=== PATIENT | male | born 1995 | race Caucasian/White ===

== ENCOUNTER 2018-10-06 02:29 | Emergency (ER) | payer MEDICAID ==
[~2018-10-06] VITALS: Ht 172.7 cm; Wt 63.2 kg
[~2018-10-06 02:29] MED LIST: ALBU18HF2 IH; CLOZ100T PO; FAMO40TA7 PO; MULT-38 PO; PALI156D IM; PARO20TA6 PO
--- NOTE | 2018-10-06 02:46 | NUR ---
He has a fever of unknown etioligy but no source identifiable. Gave him plenty of fluids to his bedside along with some applesauce.
[2018-10-06] MEDS ORDERED: ibuprofen tablet 400 MG TABLET PO STA (03:23)
--- NOTE | 2018-10-06 04:40 | NUR ---
pt refused to have labs drawn or throat cultured. made aware.
--- NOTE | 2018-10-06 05:31 | NUR ---
Awaiting [place] to provide transportation, they were notified and working on it.
--- NOTE | 2018-10-06 05:42 | NUR ---
spoke to the patients' conservator Nidhi and ANTONIA to her, she said to send him back called Traci at [facility] and ANTONIA to her
--- NOTE | 2018-10-06 06:21 | NUR ---
pt given a sandwich and apple juice as requested.
[2018-10-06 06:40] VITALS: BP 119/79
--- NOTE | 2018-10-06 06:41 | NUR ---
Lilian refused veinapuncture for labs or fluids. ER MD infromed awaiting transport.
== END 2018-10-06 07:10 | disposition home or self-care (01) ==
LOC: ER 02:30
DX: R50.9 Fever, unspecified (principal); J02.9 Acute pharyngitis, unspecified; F41.9 Anxiety disorder, unspecified; F15.90 Other stimulant use, unspecified, uncomplicated; Z72.89 Other problems related to lifestyle; Z59.0 Homelessness; Z56.0 Unemployment, unspecified
CPT/HCPCS: 71045; 87081; 87880; 99284

== ENCOUNTER 2019-02-03 10:15 | Inpatient (IN) | payer MEDICAID ==
[~2019-02-03] VITALS: Ht 170.2 cm; Wt 56.2 kg
[~2019-02-03 10:15] MED LIST changes: -ALBU18HF2 IH; +ATOR20TA PO; +BENZ1TAB7 PO; -CLOZ100T PO; -FAMO40TA7 PO; +HYDR50CA5 PO; -MULT-38 PO; +OLAN5TAB5 PO; -PALI156D IM; +PALI6TAB PO; -PARO20TA6 PO
--- NOTE | 2019-02-03 14:00 | NUR ---
Admit Note: Patient discharged from the ER Overflow, Bed 26 and admitted to [place] for [facility], Room 327 A, with all his personal possessions. Possessions inventoried in front of patient and patient signed form in agreement. Due to patient's preoccupation with internal stimuli, patient was unable to cooperate with the admission process. Asked for and given Ativan 1 mg for anxiety and went immediately to bed.
[2019-02-03] MEDS ORDERED: loperamide 2mg capsule PO PRN (14:20)
[2019-02-03] MEDS ORDERED: acetaminophen 325mg tablet PO PRN ×2 (14:20)
[2019-02-03] MEDS ORDERED: tuberculin, purif. prot. deriv. 5 units/0.1ml ID ONE (14:20)
[2019-02-03] MEDS ORDERED: magnesium hydroxide 30ml (MOM) UD suspension PO PRN (14:20)
[2019-02-03] MEDS ORDERED: hydrOXYzine 25 MG tablet PO PRN (14:20)
[2019-02-03] MEDS ORDERED: mag hydrox/Alum hydrox/simeth 30ml oral suspension PO PRN (14:20)
[2019-02-03 20:00] VITALS: BP 111/84
[2019-02-03] MEDS: LORazepam 1 MG tablet PO PRN (21:34)
--- NOTE | 2019-02-03 23:15 | NUR ---
It was discovered at this time that the patients med rec was not completed. Meds ordered in ER to be continued, pt already in bed so will start in the am.
--- NOTE | 2019-02-03 23:30 | NUR ---
Nursing Progress Note: Legal hold:5150 Client on involuntary status for GD. Report received from ELOY Torres with use of SBAR. Why are they here: Patient is a 23 year old male brought in by his brother, also conservator, for a mental health evaluation after the patient stopped taking his psychiatric medication, stopped his ADLS and has not been eating. Per patient's brother the patient was recently discharged from a mental health facility on 12/26 and was initially doing well. However, the patient stopped taking his medication and has steadily declined. Assessment What has happened this shift: Pt up and pacing the bernard stopping and staring at the clock for long periods of time. Pt was having increased anxiety staring wide eyed at the clock.Prn Ativan given with some help noted. Pt was fixating on charge nurse asking her for numerous things. Pt seems more comfortable with female staff. Pt is waiting for placement in IMD. S/I, H/I:denies A/VH: yes Sleep:poor ADL's: Ind. Group attendance: Were meds taken:None at this time Any med S/E Mental Status Exam Appearance: Eye contact: poor Behavior: Speech: pressured Mood: Affect: blunted Thought process: scattered Thought Content: Cognition: Insight:poor Judgment: poor Interventions PRN's used: Ativan Therapeutic interventions: Restraints/seclusion/emergency medication: Justification of Continued Inpatient Treatment: Pt is GD unable to utilize the resources available to him.
[2019-02-04 07:30] VITALS: BP 112/72
[2019-02-04] MEDS: hydrOXYzine 25 MG tablet PO SCH ×2 (08:31→20:44)
[2019-02-04] MEDS: benztropine 1mg tablet PO SCH ×2 (08:32→20:46)
[2019-02-04] MEDS: PALIPERIDONE 3 MG TAB.ER.24 PO SCH ×2 (08:32→20:45)
[2019-02-04] MEDS: OLANZapine 5mg rapidly disint. tablet PO SCH ×2 (08:32→20:45)
--- NOTE | 2019-02-04 14:26 | NUR ---
Malnutrition consult, patient presents to behavioral health for treatment of psychosis. Per documented weight history there is no recent significant weight loss in the past nine months. Appetite is moderate, eating 0-25% of first two meals and ate 75% of lunch today. No edema. No muscle weakness. No malnutrition at this time. Addendum: 02/04/19 at [address] Amended: Links added.
--- NOTE | 2019-02-04 17:05 | NUR ---
PATIENT IS NOT CONSERVED AND IS NOT AWAITING PLACEMENT IN AN IMD AT THIS TIME. WE ARE RECOMMENDING CONSERVATORSHIP.
--- NOTE | 2019-02-04 17:13 | NUR ---
LPS RECOMMENDATION: JESSICA provided Dr. Muller w/ [facility] recommendation paperwork. Dr. Muller completed. JESSICA faxed and emailed recommendation to [facility] Office. Ruth Stockton, Counter Roller WAITER/WAITRESS TAKE OUT [id number] Supervised by Delonte Cabrera, [id number]
--- NOTE | 2019-02-04 17:40 | NUR ---
Nursing Progress Note: Legal hold:5150 Client on involuntary status for GD. Report received from ELOY Alexis with use of SBAR. Why are they here: Patient is a 23 year old male brought in by his brother, also chair pad maker, for a mental health evaluation after the patient stopped taking his psychiatric medication, stopped his ADLS and has not been eating. Per patient's brother the patient was recently discharged from a mental health facility on 12/26 and was initially doing well. However, the patient stopped taking his medication and has steadily declined. Assessment What has happened this shift: Pt up and pacing the bernard. Pt seems more comfortable with female staff. Pt is waiting for placement in IMD. He is disheveled this morning. Initally he is willing to engage in assessment but after mutliple questions he quickly becomes guarded and asks, "Can you just get out of here?" When asked why he was admitted he reports his brother brought him here because he was concerned, "But I am fine." He has denial of his illness and denies wanting to take his medications today. He reports wanting to leave this facility. Pt is found in the hallway multiple times a day blankly staring at the clock. This video games storywriter took the time to provide education on why he is here and prompted him to take his medications. He did so with prompting. He reports having a BM yesterday. No SE's reported or observed. S/I, H/I: denies A/VH: denies but acknowledges internal stimuli Sleep: 4.5 NOC, wants to nap today ADL's: Independent Group attendance: Were meds taken: reluctantly compliant Any med S/E: Denies, none observed Mental Status Exam Appearance: slightly disheveled Eye contact: Poor Behavior: guarded, isolative Speech: pressured Mood: guarded Affect: blunted, flat Thought process: mostly linear Thought Content: focused on leaving & denial of illness Cognition: A & O X3 Insight:poor Judgment: poor Interventions PRN's used: n/a Therapeutic interventions: Restraints/seclusion/emergency medication: None Justification of Continued Inpatient Treatment: Pt is GD unable to utilize the resources available to him.
[2019-02-04 20:00] VITALS: BP 95/65
[2019-02-04] MEDS: atorvastatin 20mg tablet PO SCH (20:45)
--- NOTE | 2019-02-05 01:40 | NUR ---
Nursing Progress Note: Legal hold:5150 Client on involuntary status for GD. Report received from ELOY Grigsby with use of SBAR. Why are they here: Patient is a 23 year old male brought in by his brother, also self contained behavior unit teacher, for a mental health evaluation after the patient stopped taking his psychiatric medication, stopped his ADLS and has not been eating. Per patient's brother the patient was recently discharged from a mental health facility on 12/26 and was initially doing well. However, the patient stopped taking his medication and has steadily declined. Assessment What has happened this shift: Pt isolates to his room the majority of the shift. He is observed pacing around the beds, systematically stopping and squatting in the same spot, lifting up his cup of water multiple times before taking a sip, and folding and unfolding his bedsheets. When asked how his day was he does not look at racebook writer or respond. [employer] then asks where pt is from he replies, [place] [employer] asks what kind sof things he likes to do for for fun, he replies, "have sex." Pt encouraged to eat and drink. He verbally refuses food, but when applesauce and a peanut butter and jelly sandwich is placed on his table he eats it. He verbally refuses his HS medications, but when racebook writer hands him the cup he takes them without issue. PT paces around his room in the dark, or stares out the window. Staff encourages pt to get into bed and educates him on the importance of sleep. PT verbalizes understanding, but every time staff leaves his room he gets up out of bed and paces in the dark or hides in the bathroom. 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 Were meds taken: HS med compliant but refuses PRN ativan Any med S/E: Denies, none observed Mental Status Exam Appearance: slightly disheveled Eye contact: Poor Behavior: guarded, isolative Speech: pressured, sparse Mood: guarded, suspicious Affect: flat, bizarre Thought process: thought blocking Thought Content: wanting staff to get out of his room Cognition: poor Insight:poor Judgment: poor Interventions PRN's used: PRN Ativan encouraged, but pt refused Therapeutic interventions: 1:1 assessment, therapeutic communication, reassurance, redirection, enforcing reality, medication education, sleep education, Q15 minute safety checks. Restraints/seclusion/emergency medication: None Justification of Continued Inpatient Treatment: Pt is GD unable to utilize the resources available to him. He is unable to provide himself with snf, clothing, or food.
[2019-02-05 07:23] VITALS: BP 98/60
[2019-02-05] MEDS: clozapine 25mg tablet PO SCH ×2 (08:22→20:41)
[2019-02-05] MEDS: benztropine 1mg tablet PO SCH ×2 (08:23→20:42)
[2019-02-05] MEDS: hydrOXYzine 25 MG tablet PO SCH ×2 (08:25→20:41)
--- NOTE | 2019-02-05 15:37 | NUR ---
Nursing Progress Note: Jozef Lancaster Legal hold:5150 Client on involuntary status for GD. Report received from ELOY Alexis with use of SBAR. Why are they here: Patient is a 23 year old male brought in by his brother, also counter attendant, for a mental health evaluation after the patient stopped taking his psychiatric medication, stopped his ADLS and has not been eating. Per patient's brother the patient was recently discharged from a mental health facility on 12/26 and was initially doing well. However, the patient stopped taking his medication and has steadily declined. Assessment What has happened this shift: Pt in room sitting in chair at change of shift. When asked by this marketing underwriter if I could enter room he responds "yes". When asked if I could listen to his lungs, he initial responds, yes then quickly no. Does not make eye contact. Initially refused breakfast due to food not being individually wrapped. Provided with cereal and milk which he consumed approximately 80% of. Approached this marketing underwriter demonstrating body language that he needed to request something. When this marketing underwriter responded, pt. Looked down and walked away. He approached very soon afterward with same behavior. When asked if he needed anything he started to ask, then replied no. Eventually, he asked for a pen, which was not provided as he had already received one without returning it. [facility] psychiatrist and SW on unit to evaluate patient for LPS conservatorship. The decision was made to move forward with the conservatorship. When presented with the decision, patient responded "no, no". He started to take a sip of water than placed the pitcher on the table, he started to walk around the bedside table and then retracted his steps multiple times. Appears to be unable to communicate his thoughts appropriately, or is thought blocking. Isolates in room, observed reading a book. Does not engage others on the unit. Takes medications with encouragement. Offered applesauce, which he accepted before lunch. Ate 100% of lunch. Able to request paper for a bookmark this afternoon. Monitoring water intake, labs ordered for AM. Approached this marketing underwriter asking for a piece of paper, when handed paper, he wanted to cut it for a bookmark. This marketing underwriter cut the paper and handed him an appropriate sized piece for the bookmark. S/I, H/I: denies A/VH: denies Sleep: 1.75 Did not nap during shift ADL's: Independent Group attendance: no Were meds taken: yes Any med S/E: Denies, none observed Mental Status Exam Appearance: slightly disheveled Eye contact: Poor Behavior: guarded, isolative Speech: pressured, sparse Mood: guarded, suspicious Affect: flat, bizarre Thought process: thought blocking Thought Content: Difficult to determine, focused on wanting water Cognition: poor Insight:poor Judgment: poor Interventions PRN's used: PRN Ativan encouraged, but pt refused Therapeutic interventions: 1:1 assessment, therapeutic communication, reassurance, redirection, enforcing reality, medication education, sleep education, Q15 minute safety checks. Restraints/seclusion/emergency medication: None Justification of Continued Inpatient Treatment: Pt is GD unable to utilize the resources available to him. He is unable to provide himself with group home, clothing, or food.
--- NOTE | 2019-02-05 20:06 | NUR ---
Pt refused physical assessment. Addendum: 02/05/19 at 2010 by Deepa Basurto RN Amended: Links added.
--- NOTE | 2019-02-05 20:08 | NUR ---
Pt refused nighttime vitals Addendum: 02/05/19 at 2010 by Deepa Basurto RN Amended: Links added.
[2019-02-05] MEDS: OLANZapine 5mg rapidly disint. tablet PO SCH (20:42)
[2019-02-05] MEDS: atorvastatin 20mg tablet PO SCH (20:42)
--- NOTE | 2019-02-05 22:12 | NUR ---
Pt refused vital signs Addendum: 02/05/19 at 2214 by Deepa Basurto RN Amended: Links added.
--- NOTE | 2019-02-05 23:34 | NUR ---
Nursing Progress Note: Legal hold: 5150 Exp 02/06 @ 1400 Client on involuntary status for GD. Report received from ELOY Wright with use of SBAR. Why are they here: Patient is a 23 year old male brought in by his brother/mass spec, for a mental health evaluation after the patient stopped taking his psychiatric medication, stopped his ADL'S and has not been eating. Per patient's brother the patient was recently discharged from a mental health facility on 12/26 and was initially doing well. However, the patient stopped taking his medication and has steadily declined. Assessment What has happened this shift: Pt was in hallway pacing at shift change. Pt made eye contact with this verse writer when introduced self. When asked how he was doing patient immediately looked away and walked off. Pt later was observed sitting in dark room reading a book. Pt was reluctant with medication administration, but did take his meds. Pt refused 1:1 assessment. When asked if he knew where he was pt stated "[facility]", when asked why he was here pt stated "pushing each other", pt first stated family then said brother. When asked if brother and him push each other alot, pt states "no". Is home a safe place, "yes". Do you take psyche meds? "No." Pt's answers became just yes or no. Pt makes no eye contact during interaction. Pt repeats movements, when replacing ID bracelet, pt handed arm to this verse writer then took it back several time. Pt walks in a 2-step manner when walking across his room. Pt denies SI, HI, A/VH. Sometimes it appears pt wants to speak, but eithe looks or walks away. S/I, H/I: Pt denies. Difficult to assess. A/VH: Pt denies. Difficult to assess. Sleep: Currently sleeping. 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 Were meds taken: Medication compliant Any med S/E: None reported or observed Mental Status Exam Appearance: Slightly disheveled Eye contact: Poor Behavior: Guarded, isolative Speech: Pressured, minimal Mood: Guarded, suspicious Affect: Blunted, bizarre Thought process: Thought blocking Thought Content: Unable to assess Cognition: Poor Insight: Poor Judgment: poor Interventions PRN's used: None Therapeutic interventions: 1:1 assessment, therapeutic communication, reassurance, redirection, enforcing reality, medication administration/education/monitoring, orient patient to person, place and time, sleep education, Q15 minute safety checks. Restraints/seclusion/emergency medication: None Justification of Continued Inpatient Treatment: Pt is GD unable to utilize the resources available to him. He is unable to provide himself with penitentiary, clothing, or food. Addendum: 02/06/19 at 0431 by Deepa Basurto RN Pt woke up around 0400, sitting in chair in the dark.
[2019-02-06] MEDS: hydrOXYzine 25 MG tablet PO SCH ×2 (08:00→21:16)
[2019-02-06] MEDS: clozapine 25mg tablet PO SCH ×2 (08:00→21:14)
[2019-02-06] MEDS: benztropine 1mg tablet PO SCH ×2 (08:00→21:16)
--- NOTE | 2019-02-06 17:30 | NUR ---
Nursing Progress Note: Legal hold: 5150 Exp 02/06 @ 1400 Client on involuntary status for GD. Report received from ELOY Alexis with use of SBAR. Why are they here: Patient is a 23 year old male brought in by his brother/nutrition teacher, for a mental health evaluation after the patient stopped taking his psychiatric medication, stopped his ADL'S and has not been eating. Per patient's brother the patient was recently discharged from a mental health facility on 12/26 and was initially doing well. However, the patient stopped taking his medication and has steadily declined. Assessment Pt. awake at start of shift. Pt. refused labs. Pt. refused breakfast, refused medications, refused physical assessment. When approached, pt. looks away. Pt. ate peanut butter and jelly sandwich mid morning. Pt. ate epna burrito for lunch. Pt. encouraged food intake. Pt. presents with OCD like behaviors, picking up his cup, bringing it to his lips, hesitating, then putting it down, pt. repeats this multiple times. Pt. requests water, but has a pitcher half-full of water. Pt. approaches nurses station as if to request something, hesitates, but then backs away and repeats this process. S/I, H/I: Pt denies. Unable to assess A/VH: Pt denies. Unable to assess Sleep: Pt. slept 6.75 hours ADL's: Independent Group attendance: No Were meds taken: Medication compliant Any med S/E: None reported or observed Mental Status Exam Appearance: Slightly disheveled Eye contact: Poor Behavior: Guarded, isolative Speech: minimal responses, sometimes, "yes/no" Mood: Guarded, suspicious Affect: Blunted, bizarre Thought process: Thought blocking Thought Content: Unable to assess Cognition: Poor Insight: Poor Judgment: poor Interventions PRN's used: None Therapeutic interventions: 1:1 assessment, therapeutic communication, reassurance, redirection, enforcing reality, medication administration/education/monitoring, orient patient to person, place and time, sleep education, Q15 minute safety checks. Restraints/seclusion/emergency medication: None Justification of Continued Inpatient Treatment: Pt is GD unable to utilize the resources available to him. He is unable to provide himself with prison, clothing, or food.
[2019-02-06] MEDS: atorvastatin 20mg tablet PO SCH (21:15)
[2019-02-06] MEDS: OLANZapine 5mg rapidly disint. tablet PO SCH (21:15)
--- NOTE | 2019-02-06 22:45 | NUR ---
Pt refused assessment Addendum: 02/06/19 at 2247 by Deepa Basurto RN Amended: Links added.
--- NOTE | 2019-02-06 22:58 | NUR ---
Pt refused blood pressure Addendum: 02/06/19 at 2259 by Deepa Basurto RN Amended: Links added.
[2019-02-06] MEDS: LORazepam 1 MG tablet PO PRN (23:46)
--- NOTE | 2019-02-07 03:51 | NUR ---
Nursing Progress Note: Legal hold: 5250 Exp 02/20 @ 1400 Client on involuntary status for GD. Report received from ELOY Quigley with use of SBAR. Why are they here: Patient is a 23 year old male brought in by his brother/chair inspector, for a mental health evaluation after the patient stopped taking his psychiatric medication, stopped his ADL'S and has not been eating. Per patient's brother the patient was recently discharged from a mental health facility on 12/26 and was initially doing well. However, the patient stopped taking his medication and has steadily declined. Assessment What has happened this shift: Pt was sitting in room with his table in front of him making repeated movements with his hands, lifting them up, holding them in place then bringing them down again. Pt had refused meals during the day, so this gag writer was trying to encourage other foods. Pt. agreed on string cheese. Throughout the shift patient consumed 2 string cheese, 1 burrito and 1 blueberry muffin. Pt refused assessment, blood pressure and at first said no to his medications, but when placed in front of him pt took them. Pt's darting eyes, sometime he would make contact then quickly look away. When asked if pt wanted to be here he quickly stated "no." Pt wouldn't answer any questions. Pt was medication compliant. Pt appears to try and pocket his medications. This gag writer checked pt's mouth and stayed in room after administration to monitor. Pt later came into the observation room with his water pitcher requesting more water. Pt had a trouble falling asleep- Ativan was administered. Was unable to get a hold of provider for a sleep aid, but pt finally climbed into bed around 0200. S/I, H/I: Pt didn't answer. Difficult to assess. A/VH: Pt didn't answer. Difficult to assess. Sleep: Currently sleeping. Pt had trouble falling asleep. 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 Were meds taken: Medication compliant Any med S/E: None reported or observed Mental Status Exam Appearance: Slightly disheveled Eye contact: Poor Behavior: Guarded, isolative, repetitive Speech: Minimal, sometimes yes, sometimes no Mood: Guarded, suspicious Affect: Blunted, bizarre Thought process: Thought blocking Thought Content: Unable to assess Cognition: Poor Insight: Poor Judgment: Poor Interventions PRN's used: Ativan Therapeutic interventions: 1:1 assessment, therapeutic communication, reassurance, redirection, enforcing reality, medication administration/education/monitoring, orient patient to person, place and time, sleep education, Q15 minute safety checks. Restraints/seclusion/emergency medication: None Justification of Continued Inpatient Treatment: Pt is GD unable to utilize the resources available to him. He is unable to provide himself with [facility], clothing, or food. Addendum: 02/07/19 at 3732 by Deepa Basurto RN Pt still restless unable to sleep. Attempted to administration Atarax, pt refused, tried talking to him pt states "why are you being rude, I don't have to take that." Pt requested more water. During this time pt made direct eye contact. Addendum: 02/07/19 at 5344 by Deepa Basurto RN Observation: Pt talks in complete sentences when he wants or needs something and especially if he doesn't want to take his medications. Usually he just responds with yes or no.
[2019-02-07] MEDS ORDERED: traZODone 50mg tablet PO PRN (05:10)
--- NOTE | 2019-02-07 07:53 | NUR ---
PATIENT REFUSED VITALS
[2019-02-07] MEDS: benztropine 1mg tablet PO SCH ×2 (09:31→21:10)
[2019-02-07] MEDS: clozapine 25mg tablet PO SCH ×2 (09:31→21:10)
[2019-02-07] MEDS: hydrOXYzine 25 MG tablet PO SCH ×2 (09:32→21:10)
--- NOTE | 2019-02-07 15:03 | NUR ---
Initial: Pt admit to [facility] with psychosis. Pt on a regular diet previously with 50-75% PO intake however now documented to have refused all meals 02/06-until present. Per RN notes pt consuming snacks such as string cheese, applesauce, peanut butter and jelly sandwiches, cereal, pena burrito, and muffin. RNs are continually encouraging PO intake. Per physical assessment pt is A/O x 1, agitated, and resistive to care. Pt documented to be refusing lab draws, assessments, vitals, and meals. Current mentation likely the cause of poor PO intake. LBM documented as 02/03 however unsure if this is actually when last BM was since pt refusing assessments. MoM PRN on med list for if pt with constipation. Will continue to follow closely. Recommendations: 1) Continue with regular diet 2) Encourage PO intake 3) [place] food preferences 4) Weekly wt Addendum: 02/07/19 at [address] Amended: Links added.
--- NOTE | 2019-02-07 17:00 | NUR ---
Nursing Progress Note: Legal hold: 5250 Exp 02/20 @ 1400 Client on involuntary status for GD. Report received from Nursing Progress Note: Legal hold: 5250 Exp 02/20 @ 1400 Client on involuntary status for GD. Report received from Kat Salas RN with use of SBAR. Why are they here: Patient is a 23 year old male brought in by his brother/account specialist, for a mental health evaluation after the patient stopped taking his psychiatric medication, stopped his ADL'S and has not been eating. Per patient's brother the patient was recently discharged from a mental health facility on 12/26 and was initially doing well. However, the patient stopped taking his medication and has steadily declined. Assessment What has happened this shift: Pt. awake at start of shift. Pt. refused 1:1 assessment and initially refused medications but then agreed to take them. Pt. seen taking his blankets and scrubs and putting them in the middle of the hallway. Pt. is difficult to redirect. Pt. sometimes gives one word response of "yes" and "no". Pt. refused his breakfast. Pt. seen pacing hallway. Pt. requested buritio but then did not eat it. Later Pt. ate 2 pena borritos and drank 2 juices. Pt. continually asks for water, pt. drank 3 pitchers of water on day today. S/I, H/I: Pt didn't answer. Difficult to assess. A/VH: Pt didn't answer. Difficult to assess. Sleep: 2.25 hours sleep ADL's: Independent Group attendance: N Were meds taken: Y Any med S/E: None reported or observed Mental Status Exam Appearance: Slightly disheveled Eye contact: Poor Behavior: Guarded, isolative, obsessive/compulsive behavior Speech: Soft, Minimal, sometimes "yes", sometimes "no" Mood: Guarded, suspicious Affect: Blunted, bizarre Thought process: Thought blocking Thought Content: focused on water Cognition: Poor Insight: Poor Judgment: Poor Interventions PRN's used: Therapeutic interventions: 1:1 assessment, therapeutic communication, reassurance, redirection, enforcing reality, medication administration/education/monitoring, orient patient to person, place and time, sleep education, Q15 minute safety checks. Restraints/seclusion/emergency medication: None Justification of Continued Inpatient Treatment: Pt is GD unable to utilize the resources available to him. He is unable to provide himself with fci, clothing, or food. RN with use of SBAR. Why are they here: Patient is a 23 year old male brought in by his brother/account specialist, for a mental health evaluation after the patient stopped taking his psychiatric medication, stopped his ADL'S and has not been eating. Per patient's brother the patient was recently discharged from a mental health facility on 12/26 and was initially doing well. However, the patient stopped taking his medication and has steadily declined. Assessment What has happened this shift: Pt. awake at start of shift. Pt. refused 1:1 assessment and initially refused medications but then agreed to take them. Pt. seen taking his blankets and scrubs and putting them in the middle of the hallway. Pt. is difficult to redirect. Pt. sometimes gives one word response of "yes" and "no". Pt. refused his breakfast. Pt. seen pacing hallway. Pt. requested buritio but then did not eat it. Later Pt. ate 2 pena borritos and drank 2 juices. Pt. continually asks for water, pt. drank 3 pitchers of water on day today. S/I, H/I: Pt didn't answer. Difficult to assess. A/VH: Pt didn't answer. Difficult to assess. Sleep: 2.25 hours sleep ADL's: Independent Group attendance: N Were meds taken: Y Any med S/E: None reported or observed Mental Status Exam Appearance: Slightly disheveled Eye contact: Poor Behavior: Guarded, isolative, obsessive/compulsive behavior Speech: Soft, Minimal, sometimes "yes", sometimes "no" Mood: Guarded, suspicious Affect: Blunted, bizarre Thought process: Thought blocking Thought Content: focused on water Cognition: Poor Insight: Poor Judgment: Poor Interventions PRN's used: Therapeutic interventions: 1:1 assessment, therapeutic communication, reassurance, redirection, enforcing reality, medication administration/education/monitoring, orient patient to person, place and time, sleep education, Q15 minute safety checks. Restraints/seclusion/emergency medication: None Justification of Continued Inpatient Treatment: Pt is GD unable to utilize the resources available to him. He is unable to provide himself with fci, clothing, or food.
[2019-02-07] MEDS: atorvastatin 20mg tablet PO SCH (21:10)
[2019-02-07] MEDS: OLANZapine 5mg rapidly disint. tablet PO SCH (21:10)
--- NOTE | 2019-02-08 02:35 | NUR ---
Nursing Progress Note: Legal hold: 5250 Client on involuntary status for GD Report received from nurse with use of SBAR: ELOY Berkowitz Why are they here: Patient is a 23 year old male brought in by his brother/skin toggler, for a mental health evaluation after the patient stopped taking his psychiatric medication, stopped his ADL'S and has not been eating. Per patient's brother the patient was recently discharged from a mental health facility on 12/26 and was initially doing well. However, the patient stopped taking his medication and has steadily declined. He has a history of schizophrenia and was previously conserved. Assessment What has happened this shift: Pt. comes to the nurse's station requesting a snack at the beginning of the shift, however, for the remainder of the shift he isolates in his room participating in recurrent behaviors of adjusting the position of his water pitcher and taking steps forward and backwards near his bed. This typewriter aligner introduced self and attempts to establish rapport, pt. presents as resistive to care, guarded, anxious, and withdrawn. He refuses V/S or physical assessment, however is polite during interaction. Attempted to complete 1:1 at bedside, pt. is continues to participate in recurrent behaviors and is fidgety states, "Can you leave, you are embarrassing me?" He stares at this typewriter aligner in a wide-eyed paranoid way. When this typewriter aligner attempts to question pt. in regard to how he is being embarrassed, he is unable to answer and presents with thought blocking. Pt. appears to be distracted by internal stimuli although he denies any H/A. This typewriter aligner attempted to administer HS medications and pt. refused, stated, "My dad told me not to take meds. Can you please leave?" This typewriter aligner left the room, and re-approached pt. at a later time as he was sitting at his bedside table eating a snack. With much encouragement and education, pt. consented to taking his medications, however he c/o the taste of them in his mouth. This typewriter aligner had to prompt the pt. to drink water after putting the medications in his mouth, and a mouth check was preformed to ensure medications were swallowed (pt. appeared to be attempting to cheek medications). Pt. consumed a burrito and one pitcher of water this shift. After prompting, he was able to go to bed at approximately midnight after pacing back and forth from the Recreation Room to his room for sometime, holding books. S/I, H/I: Denies A/VH: Denies, however appears internally preoccupied Sleep: Pt. is resistant to sleep, and reports he does not want to sleep. However, with PRN Trazodone and prompting by staff, pt. able to go to bed by approximately midnight. ADL's: Pt. requires direction and prompting from staff Group attendance: Pt. does not attend HS snack Were meds taken: Reluctantly, with much encouragement and education Any med S/E: None Mental Status Exam Appearance: Thin, somewhat disheveled, however dressed appropriately in hospital attire Eye contact: Pt. stares at this typewriter aligner in a wide-eyed paranoid way. Behavior: Resistive to care, guarded, anxious, and withdrawn Speech: Soft, slow, monotonous. Respond minimally to questions and sometimes not at all Mood: Distracted by own thoughts Affect: Flat Thought process: Disorganized with thought blocking Thought Content: Possible H/A and preoccupations and obsessions with internal thoughts Cognition: A&O X3 (not to day) Insight: Poor Judgment: Poor Interventions PRN's used: Trazodone X1 Therapeutic interventions: Introduced self and attempted to establish rapport, maintained a safe and therapeutic environment, provided clear and simple instructions, reoriented to reality as needed, monitored behaviors and need for intervention, provided medication education, provided encouragement and prompting r/t ADLs and sleep, and maintained Q 15 min safety checks. Restraints/seclusion/emergency medication: N/A Justification of Continued Inpatient Treatment: Pt. is gravely disabled and requires medications adjustments and a safe and supportive environment.
[2019-02-08 08:00] VITALS: BP 114/69
[2019-02-08] MEDS: benztropine 1mg tablet PO SCH ×2 (08:47→21:16)
--- NOTE | 2019-02-08 15:59 | NUR ---
Nursing Progress Note Legal hold: 5250 Exp 02/20 @ 1400 Client on involuntary status for GD. Report received from Tere Chisholm, using SBAR. Legal hold: 5250 Exp 02/20 @ 1400 Client on involuntary status for GD. Why are they here: Patient is a 23 year old male brought in by his brother/surface supervisor, for a mental health evaluation after the patient stopped taking his psychiatric medication, stopped his ADL'S and has not been eating. Per patient's brother the patient was recently discharged from a mental health facility on 12/26 and was initially doing well. However, the patient stopped taking his medication and has steadily declined. Assessment What has happened this shift: Patient came to breakfast and then did not want to eat. Pt. agreed to eat some cereal, then went on to eat a few bites of other food on tray. On medication administration, pt took medications, but did not swallow them. He was instructed to drink water to swallow them, pt could be seen moving medications around in his mouth while taking another sip. Pt. appears to be cheeking his medications. Pt. makes repetitive movements, moving his water pitcher from his table to in front of him, then back and forth multiple times. When patient walks, he will stand still then take one step up, then a step back and repeat this over and over until he finally walks to his destination. Patient has been drinking excessive amounts of water in repetitive fashion. He drank two pitchers in the first 3 hours, then staff was instructed to only give him 1 cup at a time. Patient went to group initially until someone spoke to him, then he went over to water pitcher and started again pouring water and drinking it until pitcher was nearly gone and other patient's could not obtain water. RN asked him if he knew why he was here, he said yes, but then could not process information in order to inform nurse. Pt. refused physical assessment and cannot plainly tell RN any information. Assessment: A/VH: Pt didn't answer. Difficult to assess. Sleep: 4.5 hours sleep NOC ADL's: Independent with prompting. Group attendance: N Were meds taken: Y Any med S/E: None reported or observed Mental Status Exam Appearance: Slightly disheveled Eye contact: Poor Behavior: Guarded, isolative, obsessive/compulsive behavior Speech: Soft, Minimal, sometimes "yes", sometimes "no" Mood: Guarded, suspicious Affect: Flat, bizarre Thought process: Thought blocking Thought Content: focused on water Cognition: Imaired. Insight: Impaired. Judgment: Impaired. Interventions PRN's used: None. Therapeutic interventions: 1:1 assessment, therapeutic communication, reassurance, redirection, reinforcing reality, medication administration/education/monitoring, orient patient to person, place and time, sleep education, Q15 minute safety checks. Restraints/seclusion/emergency medication: None Justification of Continued Inpatient Treatment: Pt is GD unable to utilize the resources available to him. He is unable to provide himself with detention, clothing, or food.
[2019-02-08 20:00] VITALS: BP 110/70
[2019-02-08] MEDS ORDERED: OLANZapine 5mg rapidly disint. tablet PO SCH (21:00)
[2019-02-08] MEDS: clozapine 25mg tablet PO SCH (21:16)
[2019-02-08] MEDS: atorvastatin 20mg tablet PO SCH (21:16)
[2019-02-09] MEDS: traZODone 50mg tablet PO PRN (00:02)
--- NOTE | 2019-02-09 03:54 | NUR ---
Nursing Progress Note: Legal hold: 5250 Client on involuntary status for GD Report received from nurse with use of SBAR: ELOY Berkowitz Why are they here: Patient is a 23 year old male brought in by his brother/pain management nurse, for a mental health evaluation after the patient stopped taking his psychiatric medication, stopped his ADL'S and has not been eating. Per patient's brother the patient was recently discharged from a mental health facility on 12/26 and was initially doing well. However, the patient stopped taking his medication and has steadily declined. He has a history of schizophrenia and was previously conserved. Assessment What has happened this shift: Pt. sitting in his room in a chair at the beginning of the shift, appearing to be holding an imaginary paper in his hands, and staring straight ahead at the wall. This publicity writer attempted to greet pt., however he did not acknowledge this publicity writer and continue to stare ahead holding his arms out in front of him. He initially refused V/S, however after being educated by this publicity writer about the importance of checking his V/S, he consented to this and a physical assessment. Attempted to complete 1:1, pt. presents as restless, resistive to care, and guarded. When questioned how his day was pt. states in a flat monotone voice, "The same." When this publicity writer asked the pt. what he did today, he states, "Just chilled." Pt. continues to deny H/A, however appears to be responding to internal stimuli and will laugh inappropriately to himself at times. Pt. is less isolative this shift, and paces in the hallway, later sitting in the Group Room watching TV, however he does not interact with others. He continues to participate in compulsive-like recurrent behaviors of adjusting the position of his water pitcher and taking steps forward and backwards. He also continues to stare straight ahead in a wide-eyed paranoid way. Pt. compliant with HS medications, however continues to appear to be attempting to cheek them, and must be encouraged to take a sip of water after putting them in his mouth in order to swallow them. He is encouraged to limit his water intake, and consume Gatorade, however this publicity writer finds pt. dumping Gatorade down the sink in his room, will endorse to AM shift. Pt. unable to fall asleep, and with much encouragement consented to talking PRN Trazodone at approximately 0000. However, he was still unable to sleep and at approximately 0100 came to the nurse's station requesting another burrito (he had already consumed 3), this publicity writer denied this request and encouraged pt. to return to his room to sleep. Pt. then attempted to ask another staff member for a snack before returning to his room. This publicity writer attempted to administer MRX1 dose of Trazodone, however pt. refused. Pt. finally lay down in bed, however sleep appears to be restless, and pt. will frequently get up and shut his bedroom door and it must be re-opened by staff. S/I, H/I: Denies A/VH: Denies, however appears internally preoccupied Sleep: Pt. continues to be resistant to sleep and is restless, PRN Trazodone administered X1, with some effectiveness. Pt. refuses MRX1 dose of Trazodone ADL's: Pt. requires direction and prompting from staff Group attendance: Pt. does not attend groups Were meds taken: Yes, however pt. is still attempting to cheek meds Any med S/E: None Mental Status Exam Appearance: Thin, somewhat disheveled, however dressed appropriately in hospital attire Eye contact: Pt. stares ahead in a wide-eyed paranoid way. Behavior: Resistive to care, restless, guarded, anxious, and withdrawn Speech: Soft, and monotonous. Respond minimally to questions and sometimes not at all Mood: Distracted by own thoughts Affect: Flat Thought process: Disorganized with thought blocking Thought Content: H/A and preoccupations and obsessions with internal thoughts and compulsive-like recurrent behaviors Cognition: A&O X3 (not to day) Insight: Poor Judgment: Poor Interventions PRN's used: Trazodone X1 Therapeutic interventions: Maintained a safe and therapeutic environment, provided clear and simple instructions, reoriented to reality as needed, monitored behaviors and need for intervention, provided medication education and education on limiting water intake, provided encouragement and prompting r/t ADLs and sleep, and maintained Q 15 min safety checks. Restraints/seclusion/emergency medication: N/A Justification of Continued Inpatient Treatment: Pt. is gravely disabled and requires medications adjustments and a safe and supportive environment.
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
[2019-02-09 08:00] VITALS: BP 117/77
[2019-02-09] MEDS: benztropine 1mg tablet PO SCH ×2 (08:56→20:00)
[2019-02-09] MEDS: clozapine 25mg tablet PO SCH ×2 (08:56→21:00)
[2019-02-09] MEDS: LORazepam 1 MG tablet PO PRN (14:31)
[2019-02-09] MEDS: protein shake 8oz. (237ml) PO SCH (18:00)
--- NOTE | 2019-02-09 18:51 | NUR ---
Nursing Progress Note Legal hold: 525 Exp 02/20 @ 1400 Client on involuntary status for GD. Report received from Tere Chisholm, using SBAR. Legal hold: 525 Exp 02/20 @ 1400 Client on involuntary status for GD. Why are they here: Patient is a 23 year old male brought in by his brother/application integration engineer, for a mental health evaluation after the patient stopped taking his psychiatric medication, stopped his ADL'S and has not been eating. Per patient's brother the patient was recently discharged from a mental health facility on 12/26 and was initially doing well. However, the patient stopped taking his medication and has steadily declined. Assessment What has happened this shift: Pt. has been refusing meals. When asking for repeated pitchers of water, he is told that he can have Gatorade, and will hand out pena burritos and cheese sticks, which are found in trash in wraps. He is pouring out his Gatorade. Has refused labs x 2 days. Pt does not like any physical touch, and refuses all physical assessments. He is found to obviously be putting his pills in his lower gums either in front of his lower teeth or between teeth and lower gums. This morning his meds were obviously bulging out below his lip, pt would tell me "leave!". Pt. refused prn Ativan by this RN, and was asked by Teodoro RN to give, which pt took, then AFSANEH Amaya saw him in bathroom immediately after dosing spitting out in sink or toilette and came out and stood over water faucet in room. No change in mental status from pills that should have made noticeable difference in behavior. Only by sharing between nursing staff and PCT's have been able to put all pieces of puzzle together. Pt will not enunciate words even when in group room, almost whispers, and cannot tell if he is saying Ya, or Na. Patient hiding water pitchers and cups in room and has been asked for them back after each liter is drank or each glass is drank. Pt. will get water in group room and drink repetitively while unknowingly being observed. Pt blinks his eyes rapidly, has a blank stare, laughs inappropriately to self. He has outmaneuvered staff, but due to open communication between team have we discovered what pt is actually doing or not doing. He is to have 2 liters of H20 on days, with 3 cups of water. Tonight have asked to have all containers removed from room at lights out, and not to have water available in a.m. Pt. has been refusing all labs for last two days, and will make serious attempt to get labs in a.m. Repetitive movements. Pt. has gained 1 lb. in 6 days, nursing staff believes may be water weight gain. Assessment: A/VH: Pt didn't answer. Difficult to assess. Sleep: 6.0 hours sleep NOC. no naps. ADL's: Needs assistance/prompting. Group attendance: N Were meds taken: Cheeking meds. Any med S/E: None reported or observed Mental Status Exam Appearance: Slightly disheveled Eye contact: Poor Behavior: Guarded, isolative, obsessive/compulsive behavior Speech: Soft, Minimal, ya or na without enunciation. Mood: Dysthymic. Affect: Flat, bizarre Thought process: Thought blocking, paranoid delusions, questionable AVH. Thought Content: focused on water and food, even if he doesn't eat. Cognition: Impaired. Cannot process information given, nor respond to questions. Insight: Impaired. Judgment: Impaired. Interventions PRN's used: Ativan Therapeutic interventions: Attempted 1:1 assessment, attempted therapeutic communication, redirection, reinforcing reality, medication administration/education/monitoring, orient patient to person, place and time, sleep education, Q15 minute safety checks. Restraints/seclusion/emergency medication: None Justification of Continued Inpatient Treatment: Pt is GD unable to utilize the resources available to him. He is unable to provide himself with custodial, clothing, or food.
[2019-02-09 20:00] VITALS: BP 0/0
[2019-02-09] MEDS: atorvastatin 20mg tablet PO SCH (21:00)
--- NOTE | 2019-02-09 21:21 | NUR ---
Pt spit out his Hs medication.Refused to cooperate.
--- NOTE | 2019-02-09 22:26 | NUR ---
Nursing Progress Note Legal hold: 5250 Exp 02/20 @ 1400 Client on involuntary status for GD. Report received from Tere Chisholm, using SBAR. Legal hold: 525 Exp 02/20 @ 1400 Client on involuntary status for GD. Why are they here: Patient is a 23 year old male brought in by his brother/welfare case worker, for a mental health evaluation after the patient stopped taking his psychiatric medication, stopped his ADL'S and has not been eating. Per patient's brother the patient was recently discharged from a mental health facility on 12/26 and was initially doing well. However, the patient stopped taking his medication and has steadily declined. Assessment What has happened this shift: Pt. has been refusing meals. This shift he spit out his meds in to his water glass. When asking for repeated pitchers of water, he is told that he can have Gatorade, and will hand out pena burritos and cheese sticks, which are found in trash in wraps. He is pouring out his Gatorade. Has refused labs x 2 days. No change in mental status from pills that should have made noticeable difference in behavior. Only by sharing between nursing staff and PCT's have been able to put all pieces of puzzle together. Pt will not enunciate words even when in group room, almost whispers, and cannot tell if he is saying Ya, or Na. He is to have 2 liters of H20 on days, with 3 cups of water. Tonight have asked to have all containers removed from room at lights out, and not to have water available in a.m. Pt. has been refusing all labs for last two days, and will make serious attempt to get labs in a.m. Repetitive movements. Pt. has gained 1 lb. in 6 days, nursing staff believes may be water weight gain. Assessment: A/VH: Pt didn't answer. Difficult to assess. Sleep: 6.0 hours sleep NOC. no naps. ADL's: Needs assistance/prompting. Group attendance: N Were meds taken: Cheeking meds. Any med S/E: None reported or observed Mental Status Exam Appearance: Slightly disheveled Eye contact: Poor Behavior: Guarded, isolative, obsessive/compulsive behavior Speech: Soft, Minimal, ya or na without enunciation. Mood: Dysthymic. Affect: Flat, bizarre Thought process: Thought blocking, paranoid delusions, questionable AVH. Thought Content: focused on water and food, even if he doesn't eat. Cognition: Impaired. Cannot process information given, nor respond to questions. Insight: Impaired. Judgment: Impaired. Interventions PRN's used: Ativan Therapeutic interventions: Attempted 1:1 assessment, attempted therapeutic communication, redirection, reinforcing reality, medication administration/education/monitoring, orient patient to person, place and time, sleep education, Q15 minute safety checks. Restraints/seclusion/emergency medication: None Justification of Continued Inpatient Treatment: Pt is GD unable to utilize the resources available to him. He is unable to provide himself with halfway, clothing, or food.
[2019-02-10] MEDS: benztropine 1mg tablet PO SCH ×2 (08:07→20:00)
[2019-02-10] MEDS: protein shake 8oz. (237ml) PO SCH ×3 (08:07→13:23)
--- NOTE | 2019-02-10 08:20 | NUR ---
Refused am labs and vital signs.
[2019-02-10] MEDS ORDERED: OLANZapine 5mg rapidly disint. tablet PO ONE (08:30)
[2019-02-10] MEDS: LORazepam 1 MG tablet PO SCH ×3 (08:34→21:00)
[2019-02-10] MEDS: OLANZapine 5mg rapidly disint. tablet PO SCH ×2 (12:47→20:56)
--- NOTE | 2019-02-10 16:52 | NUR ---
Nursing Progress Note Legal hold: 5250 Exp 02/20 @ 1400 Client on involuntary status for GD. Report received from elizabeth Olmos SBAR. Legal hold: 5250 Exp 02/20 @ 1400 Client on involuntary status for GD. Why are they here: Patient is a 23 year old male brought in by his brother/exchange architect, for a mental health evaluation after the patient stopped taking his psychiatric medication, stopped his ADL'S and has not been eating. Per patient's brother the patient was recently discharged from a mental health facility on 12/26 and was initially doing well. However, the patient stopped taking his medication and has steadily declined. Assessment What has happened this shift: Received patient sleeping in his bed. Patient did get up for breakfast but only ate a muffin and half of his ensure. Patient appears suspicious and has some compulsive type behaviors. At times she been stuck on able to move. Patient resistive to nursing assessment and answering questions. Pt also refused vital signs and lab draw which was attempted x 3 today. Patient focused on drinking water and maintained at two pitchers during the shift. Patient agreeable to taking medications if he is to receive water afterwards. Patient also continues to attempt to cheek his medications and needs careful monitoring for 15 minutes post medication delivery. Patient agreeable to swishling water around in his mouth and around his gums which, after five attempts, made the powder from his medications disappear. Patient seemed more agreeable as the shift went on. Assessment: A/VH: Pt didn't answer. Difficult to assess. Sleep: 2.5 hours sleep NOC. Nap at times throughout the day. ADL's: Needs assistance/prompting. Group attendance: N Were meds taken: Cheeking meds. Any med S/E: None reported or observed Mental Status Exam Appearance: Slightly disheveled Eye contact: Poor Behavior: Guarded, isolative, obsessive/compulsive behavior Speech: Soft, Minimal, ya or na without enunciation. Mood: Dysthymic. Affect: Flat, bizarre Thought process: Thought blocking, paranoid delusions, questionable AVH. Thought Content: focused on water and food, even if he doesn't eat. Cognition: Impaired. Cannot process information given, nor respond to questions. Insight: Impaired. Judgment: Impaired. Interventions PRN's used: Ativan Therapeutic interventions: Attempted 1:1 assessment, attempted therapeutic communication, redirection, reinforcing reality, medication administration/education/monitoring, orient patient to person, place and time, sleep education, Q15 minute safety checks, Restraints/seclusion/emergency medication: None Justification of Continued Inpatient Treatment: Pt is GD unable to utilize the resources available to him. He is unable to provide himself with assisted, clothing, or food.
[2019-02-10] MEDS: lactose-reduced food (Ensure Enlive) - 237ml bottle PO SCH (17:59)
[2019-02-10 20:00] VITALS: BP 105/65
[2019-02-10] MEDS: clozapine 25mg tablet PO SCH (21:00)
[2019-02-10] MEDS: atorvastatin 20mg tablet PO SCH (21:00)
--- NOTE | 2019-02-10 21:19 | NUR ---
Pt refused medications with th exception of his Zyprexa. Pt stated I dont need to take them till they make me.
--- NOTE | 2019-02-10 22:24 | NUR ---
Nursing Progress Note Legal hold: 5250 Exp 02/20 @ 1400 Client on involuntary status for GD. Report received from Sho LYONS, using SBAR. Legal hold: 5250 Exp 02/20 @ 1400 Client on involuntary status for GD. Why are they here: Patient is a 23 year old male brought in by his brother/customer professional, for a mental health evaluation after the patient stopped taking his psychiatric medication, stopped his ADL'S and has not been eating. Per patient's brother the patient was recently discharged from a mental health facility on 12/26 and was initially doing well. However, the patient stopped taking his medication and has steadily declined. Assessment What has happened this shift: Received patient sleeping in his bed. Patient appears suspicious and has some compulsive type behaviors. Pt refused his Hs medications but did convince him to take his Zyprexa He continued to refuse his meds after multiple attempts. He then stated I dont have take them till they make me.There are two many pills. Patient focused on drinking water and maintained at one pitcher during the shift. Patient also continues to attempt to cheek his medications and needs careful monitoring for 15 minutes post medication delivery. Pt appeared more isolative this shift. Assessment: A/VH: Pt didn't answer. Difficult to assess. Sleep: 2.5 hours sleep NOC. Nap at times throughout the day. ADL's: Needs assistance/prompting. Group attendance: N Were meds taken: Refused all but Zyprexa. Any med S/E: None reported or observed Mental Status Exam Appearance: Slightly disheveled Eye contact: Poor Behavior: Guarded, isolative, obsessive/compulsive behavior Speech: Soft, Minimal, ya or na without enunciation. Mood: Dysthymic. Affect: Flat, bizarre Thought process: Thought blocking, paranoid delusions, questionable AVH. Thought Content: focused on water and food, even if he doesn't eat. Cognition: Impaired. Cannot process information given, nor respond to questions. Insight: Impaired. Judgment: Impaired. Interventions PRN's used: Ativan Therapeutic interventions: Attempted 1:1 assessment, attempted therapeutic communication, redirection, reinforcing reality, medication administration/education/monitoring, orient patient to person, place and time, sleep education, Q15 minute safety checks, Restraints/seclusion/emergency medication: None Justification of Continued Inpatient Treatment: Pt is GD unable to utilize the resources available to him. He is unable to provide himself with longterm, clothing, or food.
[2019-02-11 07:14] VITALS: BP 118/80
[2019-02-11] MEDS: LORazepam 1 MG tablet PO SCH ×3 (07:44→20:56)
[2019-02-11] MEDS: benztropine 1mg tablet PO SCH ×2 (07:44→20:57)
[2019-02-11] MEDS: OLANZapine 5mg rapidly disint. tablet PO SCH ×3 (07:44→21:02)
[2019-02-11] MEDS: lactose-reduced food (Ensure Enlive) - 237ml bottle PO SCH ×3 (08:00→18:57)
[2019-02-11 10:54] LABS: BASOPHILS % (AUTO) 0.6 % (0-1); EOSINOPHILS # (AUTO) 0.1 X10'3 (0-0.9); EOSINOPHILS % (AUTO) 0.8 % (0-6); HEMATOCRIT 43.8 % (42.0-52.0); HEMOGLOBIN 14.7 g/dl (14.0-17.9); LYMPHOCYTES # (AUTO) 2.5 X10'3 (1.1-4.8); LYMPHOCYTES % (AUTO) 40.3 % (21-51); MEAN CORPUSCULAR HEMOGLOBIN 29.5 PG (27.0-31.0); MEAN CORPUSCULAR HGB CONC 33.6 g/dL (33.0-36.5); MEAN PLATELET VOLUME 9.1 FL (7.4-10.4); MONOCYTES # (AUTO) 0.5 X10'3 (0-0.9); NEUTROPHILS # (AUTO) 3.2 X10'3 (1.8-7.7); NEUTROPHILS % (AUTO) 50.3 % (42-75); PLATELET COUNT 247 X10'3 (140-440); RED BLOOD COUNT 4.98 X10'6 (4.70-6.10); RED CELL DISTRIBUTION WIDTH 13.8 % (11.5-14.5); WHITE BLOOD COUNT 6.3 X10'3 (4.5-11.0)
[2019-02-11 11:06] LABS: ALBUMIN 4.2 G/DL (3.4-5.0); ANION GAP 7 (8-16); BLOOD UREA NITROGEN 13 MG/DL (7-18); BUN/CREATININE RATIO 16.7 (5.4-32.0); CALCIUM 9.3 MG/DL (8.5-10.1); CHLORIDE 106 MMOL/L (99-107); CREATININE 0.78 MG/DL (0.60-1.10); GLUCOSE 92 MG/DL (70-104); POTASSIUM 3.9 MMOL/L (3.5-5.1); SODIUM 143 MMOL/L (135-145); TOTAL CARBON DIOXIDE 30.2 MMOL/L (24-32); eGFR > 90 ML/MIN
--- NOTE | 2019-02-11 14:22 | NUR ---
Nursing Progress Note Legal hold: 5250 Exp 02/20 @ 1400 Client on involuntary status for GD. Report received from Vanesa ELI, with use of SBAR. Why are they here: Patient is a 23 year old male brought in by his brother/electrical equipment assembler, for a mental health evaluation after the patient stopped taking his psychiatric medication, stopped his ADL'S and has not been eating. Per patient's brother, on 12/26 the patient was discharged from a mental health facility and was initially doing well. However, the patient stopped taking his medication and has steadily declined. Assessment What has happened this shift: At the start of shift pt up pacing the halls demonstrates and vocalizes excessive and compulsive behaviors and request. He continues to focus on drinking water requesting pitchers over and over throughout the shift. Pt maintained on approximately three pitchers this shift along with his protein shakes 100% each meal. Pt cooperative w/labs and med passes throughout the shift. Labs, BMP and CBC/diff WNLs. Message sent to Dr. Muller requesting a decrease of pts benztropine. Assessment: A/VH: does not respond to questioning Sleep: 9.5 NOC. Nap at times throughout the day. ADL's: Needs assistance/prompting. Group attendance: N Were Meds taken: pt required to open his mouth and raise his tongue after each pill. He was cooperative each time. Any med S/E: None reported or observed Mental Status Exam Appearance: asked for clean shirt Eye contact: Poor Behavior: Guarded, isolative, obsessive/compulsive behavior Speech: Soft, poverty of speech Mood: Dysthymic. Affect: Flat, bizarre Thought process: Thought blocking, paranoid delusions, questionable AVH. Thought Content: focused on water Cognition: Impaired. Cannot process information given, nor respond to questions. Insight: Impaired. Judgment: Impaired. Interventions PRN's used: N/A Therapeutic interventions: attempted 1:1 assessment, provided therapeutic communication, redirection, medication administration/education/monitoring for compliance, monitor Q15 minutes for safety. Restraints/seclusion/emergency medication: None Justification of Continued Inpatient Treatment: Pt is GD unable to utilize the resources available to him. He is unable to provide himself with senior care, clothing, or food.
--- NOTE | 2019-02-11 14:36 | NUR ---
Reassessment: Pt continues with fluctuating PO intake documented with 75-100%, 0-25%, and refusals of meals. Pt receiving Ensure Enlive TID with documented 100% PO intake. RNs continue to encourage PO intake and provide snacks to optimize PO intake. Per physical assessment pt remains restless, anxious, and resistive to care. LBM 02/09. Will continue to follow closely. Recommendations: 1) Continue with regular diet 2) Encourage PO intake 3) [employer] food preferences 4) Ensure Enlive TID 5) Weekly wt Addendum: 02/11/19 at [address] Amended: Links added.
[2019-02-11 20:00] VITALS: BP 115/82
[2019-02-11] MEDS: atorvastatin 20mg tablet PO SCH (21:02)
--- NOTE | 2019-02-11 21:29 | NUR ---
Nursing Progress Note Legal hold: 5250 Exp 02/20 @ 1400 Client on involuntary status for GD. Report received from Soraida LYONS, with use of SBAR. Why are they here: Patient is a 23 year old male brought in by his brother/director life, for a mental health evaluation after the patient stopped taking his psychiatric medication, stopped his ADL'S and has not been eating. Per patient's brother, on 12/26 the patient was discharged from a mental health facility and was initially doing well. However, the patient stopped taking his medication and has steadily declined. Assessment What has happened this shift: At the start of shift pt up pacing the halls demonstrates and vocalizes excessive and compulsive behaviors and request. He continues to focus on drinking water requesting pitchers over and over throughout the shift. Pt maintained on approximately one pitchers this shift along with his protein shakes 100% each meal. Pt cooperative w/labs and med passes throughout the shift Pt up watching tv in the group room sitting at a table with other peers. Labs, BMP and CBC/diff WNLs. Message sent to Dr. Muller requesting a decrease of pts benztropine. Assessment: A/VH: does not respond to questioning Sleep: 9.5 NOC. Nap at times throughout the day. ADL's: Needs assistance/prompting. Group attendance: N Were Meds taken: pt required to open his mouth and raise his tongue after each pill. He was cooperative each time. Any med S/E: None reported or observed Mental Status Exam Appearance: asked for clean shirt Eye contact: Poor Behavior: Guarded, isolative, obsessive/compulsive behavior Speech: Soft, poverty of speech Mood: Dysthymic. Affect: Flat, bizarre Thought process: Thought blocking, paranoid delusions, questionable AVH. Thought Content: focused on water Cognition: Impaired. Cannot process information given, nor respond to questions. Insight: Impaired. Judgment: Impaired. Interventions PRN's used: N/A Therapeutic interventions: attempted 1:1 assessment, provided therapeutic communication, redirection, medication administration/education/monitoring for compliance, monitor Q15 minutes for safety. Restraints/seclusion/emergency medication: None Justification of Continued Inpatient Treatment: Pt is GD unable to utilize the resources available to him. He is unable to provide himself with prison, clothing, or food.
[2019-02-12] MEDS: OLANZapine 5mg rapidly disint. tablet PO SCH ×3 (07:32→21:07)
[2019-02-12] MEDS: LORazepam 1 MG tablet PO SCH ×3 (07:34→21:07)
[2019-02-12] MEDS: benztropine 1mg tablet PO SCH ×2 (07:35→21:07)
[2019-02-12 08:00] VITALS: BP 107/72
[2019-02-12] MEDS: lactose-reduced food (Ensure Enlive) - 237ml bottle PO SCH ×3 (08:00→18:00)
--- NOTE | 2019-02-12 12:53 | NUR ---
Nursing Progress Note Legal hold: 5250 Exp 02/20 @ 1400 Client on involuntary status for GD. Report received from SREEDHAR Alexis, with use of SBAR. Why are they here: Patient is a 23 year old male brought in by his brother/pen rider, for a mental health evaluation after the patient stopped taking his psychiatric medication, stopped his ADL'S and has not been eating. Per patient's brother, on 12/26 the patient was discharged from a mental health facility and was initially doing well. However, the patient stopped taking his medication and has steadily declined. Assessment What has happened this shift: Pt asleep at start of shift with blanket covering his face. He got up for breakfast eating only 25% of his meal. The kitchen did not provide his Protein Drink at breakfast when it was brought up he refused to drink it. He slept through the morning after seeing the doctor. Administration of meds requires supervision that he has swallowed each pill by opening his mouth sticking his tongue out, along with 5-10 minutes of conversing after completing the medication pass due to cheeking, history of paranoia and noncompliance. Pt could sit for longer periods of time and answered some questions today. Assessment: A/VH: does not respond to questioning Sleep: 8.0 NOC. Napping in the morning ADL's: Needs assistance/prompting. Group attendance: N Were Meds taken: pt required to open his mouth and raise his tongue after each pill. He was cooperative each time. Any med S/E: None reported or observed Mental Status Exam Appearance: asked for clean shirt Eye contact: Poor Behavior: Guarded, isolative, obsessive/compulsive behavior Speech: Soft, poverty of speech Mood: Dysthymic. Affect: Flat, bizarre Thought process: Thought blocking, paranoid delusions, questionable AVH. Thought Content: focused on water Cognition: Impaired. Cannot process information given, nor respond to questions. Insight: Impaired. Judgment: Impaired. Interventions PRN's used: N/A Therapeutic interventions: attempted 1:1 assessment, provided therapeutic communication, redirection, medication administration/education/monitoring for compliance, monitor Q15 minutes for safety. Restraints/seclusion/emergency medication: None Justification of Continued Inpatient Treatment: Pt is GD unable to utilize the resources available to him. He is unable to provide himself with halfway, clothing, or food.
[2019-02-12 20:50] VITALS: BP 103/75
[2019-02-12] MEDS: atorvastatin 20mg tablet PO SCH (21:07)
--- NOTE | 2019-02-13 01:49 | NUR ---
Nursing Progress Note Legal hold: 5250 Exp 02/20 @ 1400 Client on involuntary status for GD. Report received from Brian LYONS, with use of SBAR. Why are they here: Patient is a 23 year old male brought in by his brother/warehouse delivery driver, for a mental health evaluation after the patient stopped taking his psychiatric medication, stopped his ADL'S and has not been eating. Per patient's brother, on 12/26 the patient was discharged from a mental health facility and was initially doing well. However, the patient stopped taking his medication and has steadily declined. Assessment What has happened this shift: Pt. pacing halls at shift change. Pt requests string cheese and some water. Explained that he is limited to 3 pitchers per shift, pt states "okay." Pt had 2 pitchers this shift. 1:1 assessment competed at bedside. Pt is cooperative with HS med pass. When asked for pt to pull cheek out pt states "you are mean." This sports writer explained that he has a tendency to cheek his meds - what appeared to be a small grin was observed. Pt states that his family isn't happy that he is here, but states "it is confusing." Asked if patient thinks this is a good place for him and does he think he is getting better, pt does not respond. Pt does not answer questions. Pt was awake around 2300 requesting cookies and a burrito when asked if he wanted something to sleep pt stated "no, he didn't like being put out." Assessment: A/VH: Does not respond to questioning Sleep: Currently sleeping, no distress noted. ADL's: Independent - needs prompting Group attendance: night shift supervisor no group Were Meds taken: Pt required to open his mouth and raise his tongue after each pill and pull lip down. He was cooperative each time. Any med S/E: None reported or observed Mental Status Exam Appearance: Appropriately dressed in green scrubs, needs shower. Eye contact: Poor Behavior: Guarded, isolative, obsessive/compulsive behavior Speech: Soft, poverty of speech Mood: Dysthymic. Affect: Flat, bizarre Thought process: Thought blocking, paranoid delusions, questionable AVH. Thought Content: Focused on water Cognition: Impaired. Cannot process information given, nor respond to questions. Insight: Impaired. Judgment: Impaired. Interventions PRN's used: N/A Therapeutic interventions: attempted 1:1 assessment, provided therapeutic communication, redirection, medication administration/education/monitoring for compliance, monitor Q15 minutes for safety. Restraints/seclusion/emergency medication: None Justification of Continued Inpatient Treatment: Continued therapeutic support and medication management needed to provide stabilization, prevent decompensation. Currently unable to formulate a viable plan for food, clothing and assisted. .
[2019-02-13 07:33] VITALS: BP 113/82
[2019-02-13] MEDS: LORazepam 1 MG tablet PO SCH ×3 (07:41→20:47)
[2019-02-13] MEDS: OLANZapine 5mg rapidly disint. tablet PO SCH ×3 (07:41→20:46)
[2019-02-13] MEDS: benztropine 1mg tablet PO SCH ×2 (07:41→20:47)
[2019-02-13] MEDS: lactose-reduced food (Ensure Enlive) - 237ml bottle PO SCH ×3 (07:42→18:00)
--- NOTE | 2019-02-13 17:01 | NUR ---
Nursing Progress Note Legal hold: 5250 Client on involuntary status for GD. Report received from SREEDHAR Alexis, with use of SBAR. Why are they here: Patient is a 23 year old male brought in by his brother/support technician, for a mental health evaluation after the patient stopped taking his psychiatric medication, stopped his ADL'S and has not been eating. Per patient's brother, on 12/26 the patient was discharged from a mental health facility and was initially doing well. However, the patient stopped taking his medication and has steadily declined. Assessment What has happened this shift: The patient was asleep at change of shift. He got up to breakfast with encouragement. He took medications reluctantly and asked to have them "later", he was told no, and then he did take his meds. He was educated on the importance of eating the food on his tray and not refusing and then later asking for snacks. He was informed this behavior was going to be stopped. He ate very little from his trays today, and then was asking for burritos and other snacks. He received no snacks today other than those at the regular patient snack times. He was also checked thoroughly for cheeking which he did not like. He was informed cheeking behaviors will be eliminated and this behavior would not be tolerated. He stated, "you're mean." Dr. Muller agreed this patient needs very direct instruction and boundaries set by staff. The patient responded well to strict boundaries and limitations. Assessment: A/VH: will not respond Sleep: Napped ADL's: Needs assistance/prompting. Group attendance: No Were Meds taken: pt required to open his mouth and lift lips and tongue, also blow hard 3 times Any med S/E: None reported or observed Mental Status Exam Appearance: slightly disheveled Eye contact: Poor Behavior: Guarded, isolative, obsessive/compulsive behavior Speech: Soft, poverty of speech Mood: Dysthymic. Affect: Flat, bizarre Thought process: Thought blocking Thought Content: focused on water and snacks Cognition: Impaired. Responds when things don't go as expected Insight: Impaired. Judgment: Impaired. Interventions PRN's used: N/A Therapeutic interventions: attempted 1:1 assessment, provided therapeutic communication, redirection, medication administration/education/monitoring for compliance, monitor Q15 minutes for safety. Restraints/seclusion/emergency medication: None Justification of Continued Inpatient Treatment: Pt is GD unable to utilize the resources available to him. He is unable to provide himself with correction, clothing, or food.
[2019-02-13 19:20] VITALS: BP 120/65
[2019-02-13] MEDS: atorvastatin 20mg tablet PO SCH (20:47)
--- NOTE | 2019-02-13 22:26 | NUR ---
Nursing Progress Note Legal hold: 5250 Exp 02/20 @ 1400 Client on involuntary status for GD. Report received from Gerry LYONS, with use of SBAR. Why are they here: Patient is a 23 year old male brought in by his brother/casino dealer, for a mental health evaluation after the patient stopped taking his psychiatric medication, stopped his ADL'S and has not been eating. Per patient's brother, on 12/26 the patient was discharged from a mental health facility and was initially doing well. However, the patient stopped taking his medication and has steadily declined. Assessment What has happened this shift: Pt was resting in bed at shift change with no distress noted. Pt got up for HS snack then was later observed surfing through channels on the T.V. Pt refused his medications at first, with reluctance he took them. Pt states "I am an adult I shouldn't have to take my meds, but you wouldn't understand." This technical proposal writer asked don't you feel better on your meds, can you tell when you are not taking your meds. Pt then asked this technical proposal writer to leave, but I pushed a little. Pt stated "I should have gone to correction." "I did that because I wasn't taking my meds." Pt wouldn't elaborate on what he did. Explained how much more coherent he was since his admission. Pt again asked this technical proposal writer to leave. I said you don't want me to watch T.V with you- pt gives a quick smile then goes back to his flat affect. When pt want to engage he will engage,but when he doesn't' want to be bothered he uses his flat affect expression. Pt states he doesn't want to be here. Pt cooperative with 1:1 assessment. Supervised HS medication admin. Later went back to check on pt in group room asked how he was "relaxing, doing my thing." Pt retired to bed. Assessment: A/VH: Does not respond to question Sleep: Currently sleeping, no distress noted. ADL's: Independent - needs prompting Group attendance: concert manager no group Were Meds taken: Pt required to open his mouth and raise his tongue after each pill and pull lip down. Pt was reluctant, but cooperative. Any med S/E: None reported or observed Mental Status Exam Appearance: Slightly disheveled Eye contact: Fair Behavior: Guarded, isolative, obsessive/compulsive behavior Speech: Soft, poverty of speech Mood: Dysthymic. Affect: Flat, bizarre Thought process: Thought blocking Thought Content: "Being forced to take meds" Cognition: Impaired. Responds when pushed. More coherent then lets on. Insight: Impaired. Judgment: Impaired. Interventions PRN's used: N/A Therapeutic interventions: attempted 1:1 assessment, provided therapeutic communication, redirection, medication administration/education/monitoring for compliance, monitor Q15 minutes for safety. Restraints/seclusion/emergency medication: None Justification of Continued Inpatient Treatment: Continued therapeutic support and medication management needed to provide stabilization, prevent decompensation. Pt is GD currently unable to formulate a viable plan for food, clothing and long term. Addendum: 02/13/19 at 2306 by Deepa Basurto RN Pt came to observation room and requested from this technical proposal writer link bloom. Explained to the pt about when snack time was. I reiterated our prior conversation about getting snacks at the appropriate time and the importance of him eating his 3 main meals during the day. Pt became defensive and said "I need to eat, I am not a child,I am 23 years old." "Look I am skinny" (and showed me his wrists). Explained that if he ate his meals snacks could be provided. Pt then asked this technical proposal writer to leave. Checked in on pt - he is in bed with covers over his head. Will continue to monitor.
[2019-02-14] MEDS: LORazepam 1 MG tablet PO SCH ×3 (07:58→20:59)
[2019-02-14] MEDS: OLANZapine 5mg rapidly disint. tablet PO SCH ×3 (07:58→21:04)
[2019-02-14] MEDS: benztropine 1mg tablet PO SCH ×2 (07:58→20:59)
[2019-02-14] MEDS: lactose-reduced food (Ensure Enlive) - 237ml bottle PO SCH ×3 (07:59→18:13)
[2019-02-14 08:00] VITALS: BP 121/68
--- NOTE | 2019-02-14 13:56 | NUR ---
Nursing Progress Note Legal hold: 5250 Client on involuntary status for GD. Report received from SREEDHAR Alexis, with use of SBAR. 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 Per patient's brother, on 12/26 the patient was discharged from a mental health facility and was initially doing well. However, the patient stopped taking his medication and has steadily declined. Assessment What has happened this shift: The patient was asleep at change of shift. He got up to breakfast with his peers. He ate approx. 40% of his breakfast tray and all of his protein shake. He was reluctant to take meds at first refusing and then changing his mind as he was informed his doctor would be notified. He still attempts to cheek his medications and does need checking. He asked for cookies and burritos repeatedly today and asked multiple staff. He was educated multiple times as to when snack times and meals are. He accepts the redirection and seems to be doing well with the limit and boundary setting. Refuses to answer questions regarding SI or hallucinations. Depressed mood, constricted affect. Assessment: A/VH: will not respond Sleep: Napped ADL's: Needs assistance/prompting. Group attendance: No Were Meds taken: pt required to open his mouth and lift lips and tongue, also blow hard 3 times Any med S/E: None reported or observed Mental Status Exam Appearance: slightly disheveled Eye contact: Poor Behavior: Guarded, isolative, obsessive/compulsive behavior Speech: Soft, poverty of speech Mood: Dysthymic. Affect: Constricted, flat at times Thought process: Thought blocking Thought Content: focused on snacks Cognition: Impaired. Responds when things don't go as expected Insight: Impaired. Judgment: Impaired. Interventions PRN's used: N/A Therapeutic interventions: attempted 1:1 assessment, provided therapeutic communication, redirection, medication administration/education/monitoring for compliance, monitor Q15 minutes for safety. Restraints/seclusion/emergency medication: None Justification of Continued Inpatient Treatment: Pt is GD unable to utilize the resources available to him. He is unable to provide himself with [facility], clothing, or food.
--- NOTE | 2019-02-14 15:04 | NUR ---
Reassessment: Pt continues with fluctuating PO intake documented with 75-100%, 0-25%, and refusals of meals. Pt receiving Ensure Enlive TID with documented 100% PO intake. RNs continue to encourage PO intake and provide snacks to optimize PO intake. Per physical assessment pt remains restless, anxious, and resistive to care. LB 02/14. Will continue to follow closely. Recommendations: 1) Continue with regular diet 2) Encourage PO intake 3) [place] food preferences 4) Ensure Enlive TID 5) Weekly wt Addendum: 02/14/19 at [address] Amended: Links added.
--- NOTE | 2019-02-14 17:31 | NUR ---
Collateral Information: Spoke with Public Guardian regarding papers pt was served w/ yesterday. Ms. Galvez said they were probably simply copies of paperwork that had been filled. She continued that when patient has been T-Conned , we will be faxed copies of the T-Con paperwork. Herminia Lua, [facility]
[2019-02-14] MEDS: atorvastatin 20mg tablet PO SCH (20:59)
--- NOTE | 2019-02-14 21:51 | NUR ---
Pt refused blood pressure Addendum: 02/14/19 at 2151 by Deepa Basurto RN Amended: Links added.
--- NOTE | 2019-02-14 23:05 | NUR ---
Nursing Progress Note Legal hold: 5250 Exp 02/20 @ 1400 Client on involuntary status for GD. Report received from Gerry LYONS, with use of SBAR. Why are they here: Patient is a 23 year old male brought in by his brother/access rep, for a mental health evaluation after the patient stopped taking his psychiatric medication, stopped his ADL'S and has not been eating. Per patient's brother, on 12/26 the patient was discharged from a mental health facility and was initially doing well. However, the patient stopped taking his medication and has steadily declined. Assessment What has happened this shift: Pt was sitting in his room at shift change. Pt later came out to the group room and was observed watching T.V. Pt came to observation and requested if he could have a burrito. Explained to pt that he could have a burrito at the scheduled 1999 snack time. Pt was argumentative when it came to taking his HS medications. Pt said he wasn't going to take them and he stated "I don't the games your playing." Educated on the importance of taking his medications. This underwriter put meds in a cup and placed them in front of patient. Pt reluctantly took them. Monitored for cheeking. Pt several time told this underwriter "you can leave now." It was explained that since he has been seen cheeking his meds that I would hang out and check his mouth. It was made aware to this underwriter that the patient is possibly putting the food from his trays down his pants then going to bathroom and flushing food. This was observed at all meals according to PCT. Suggested pt be montiored during meals, will pass on to day shift. Assessment: A/VH: Does not respond to question Sleep: Currently sleeping, no distress noted. ADL's: Independent - needs prompting Group attendance: buttonhole marker no group Were Meds taken: Pt required to open his mouth and raise his tongue after each pill and pull lip down. Pt was reluctant, but cooperative. Any med S/E: None reported or observed Mental Status Exam Appearance: Slightly disheveled Eye contact: Fair Behavior: Guarded, isolative, obsessive/compulsive behavior Speech: Soft, poverty of speech Mood: Dysthymic. Affect: Flat, bizarre Thought process: Thought blocking Thought Content: "Being forced to take meds" Cognition: Impaired. Responds when pushed. More linear then lets on. Insight: Impaired. Judgment: Impaired. Interventions PRN's used: N/A Therapeutic interventions: attempted 1:1 assessment, provided therapeutic communication, redirection, medication administration/education/monitoring for compliance, monitor Q15 minutes for safety. Restraints/seclusion/emergency medication: None Justification of Continued Inpatient Treatment: Continued therapeutic support and medication management needed to provide stabilization, prevent decompensation. Pt is GD currently unable to formulate a viable plan for food, clothing and chcf.
[2019-02-15] MEDS: OLANZapine 5mg rapidly disint. tablet PO SCH ×3 (07:55→22:06)
[2019-02-15] MEDS: LORazepam 1 MG tablet PO SCH ×3 (07:55→22:06)
[2019-02-15] MEDS: benztropine 1mg tablet PO SCH ×2 (07:55→22:05)
[2019-02-15] MEDS: lactose-reduced food (Ensure Enlive) - 237ml bottle PO SCH ×3 (07:59→18:00)
[2019-02-15 08:00] VITALS: BP 105/64
--- NOTE | 2019-02-15 16:34 | NUR ---
Nursing Progress Note Legal hold: 5250 Client on involuntary status for GD. Report received from SREEDHAR Ramos, with use of SBAR. 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 Per patient's brother, on 12/26 the patient was discharged from a mental health facility and was initially doing well. However, the patient stopped taking his medication and has steadily declined. Assessment What has happened this shift: The patient was asleep at change of shift. He got up to breakfast with his peers. He ate approx. 35% of his breakfast tray and all of his protein shake. He was reluctant to take meds at first refusing and then changing his mind as he was informed his doctor would be notified. He still attempts to cheek his medications and does need checking. He asked for snacks much less today and was praised for eating from his tray. He is eating more food from trays everyday. He was educated multiple times as to when snack times and meals are. He accepts the redirection and seems to be doing well with the limit and boundary setting. Refuses to answer questions regarding SI or hallucinations. Depressed mood, constricted affect. Assessment: A/VH: will not respond Sleep: Napped ADL's: Needs assistance/prompting. Group attendance: No Were Meds taken: pt required to open his mouth and lift lips and tongue, also blow hard 3 times Any med S/E: None reported or observed Mental Status Exam Appearance: slightly disheveled Eye contact: Poor Behavior: Guarded, isolative, obsessive/compulsive behavior Speech: Soft, poverty of speech Mood: Dysthymic. Affect: Constricted, flat at times Thought process: Thought blocking Thought Content: focused on snacks Cognition: Impaired. Responds when things don't go as expected Insight: Impaired. Judgment: Impaired. Interventions PRN's used: N/A Therapeutic interventions: attempted 1:1 assessment, provided therapeutic communication, redirection, medication administration/education/monitoring for compliance, monitor Q15 minutes for safety. Restraints/seclusion/emergency medication: None Justification of Continued Inpatient Treatment: Pt is GD unable to utilize the resources available to him. He is unable to provide himself with long term, clothing, or food.
[2019-02-15 20:00] VITALS: BP 107/68
[2019-02-15] MEDS: atorvastatin 20mg tablet PO SCH (22:05)
--- NOTE | 2019-02-16 03:35 | NUR ---
Nursing Progress Note Legal hold: 5250 Client on involuntary status for GD. Report received from Tere Garrett RN with use of SBAR. 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 Per patient's brother, on 12/26 the patient was discharged from a mental health facility and was initially doing well. However, the patient stopped taking his medication and has steadily declined. Assessment What has happened this shift: This patient is ambulatory at shift change, he retired shortly thereafter to his room. Patients thought process is at times linear. Initially this patient requests a pena burrito. This inspector automatic typewriter advised the patient that compliance with meals would be appropriate , a burrito could then be given. This patient exhibits understanding. The patient promises to comply with medications and meals. A nurse teaching is given this patient on the importance of a proper diet. The patient denies feeling suicidal or homicidal. This patient was advised that he is in a safe place. He exhibits understand. Assessment: A/VH: will not respond Sleep: Napped ADL's: Needs assistance/prompting. Group attendance: No Were Meds taken: pt required to open his mouth and lift lips and tongue, also blow hard 3 times Any med S/E: None reported or observed Mental Status Exam Appearance: slightly disheveled Eye contact: Poor Behavior: Guarded, isolative, obsessive/compulsive behavior Speech: Soft, poverty of speech Mood: Dysthymic. Affect: Constricted, flat at times Thought process: Thought blocking Thought Content: focused on snacks Cognition: Impaired. Responds when things don't go as expected Insight: Impaired. Judgment: Impaired. Interventions PRN's used: N/A Therapeutic interventions: attempted 1:1 assessment, provided therapeutic communication, redirection, medication administration/education/monitoring for compliance, monitor Q15 minutes for safety. Restraints/seclusion/emergency medication: None Justification of Continued Inpatient Treatment: Pt is GD unable to utilize the resources available to him. He is unable to provide himself with [facility], clothing, or food.
[2019-02-16] MEDS: benztropine 1mg tablet PO SCH ×2 (07:52→22:44)
[2019-02-16] MEDS: LORazepam 1 MG tablet PO SCH ×3 (07:52→22:44)
[2019-02-16] MEDS: OLANZapine 5mg rapidly disint. tablet PO SCH ×3 (07:52→20:46)
[2019-02-16 08:00] VITALS: BP 119/77
[2019-02-16] MEDS: lactose-reduced food (Ensure Enlive) - 237ml bottle PO SCH ×3 (08:00→18:09)
--- NOTE | 2019-02-16 16:12 | NUR ---
Nursing Progress Note Legal hold: 5250 Client on involuntary status for GD. Report received from SREEDHAR Pierce, with use of SBAR. Why are they here: Patient is a 23 year old male brought in by his brother/service delivery analyst, for a mental health evaluation after the patient stopped taking his psychiatric medication, stopped his ADL'S and has not been eating. Per patient's brother, on 12/26 the patient was discharged from a mental health facility and was initially doing well. However, the patient stopped taking his medication and has steadily declined. Assessment What has happened this shift: Pt asleep at change of shift. He woke up for 1:1 assessment and medication pass. Pt right away said, Im not taking my pills, Im too tired. Pt educated to the decrease of the benztropine then agreed to take all his pills. At the 1300 med pass pt said he was not going to take his pills if he had to take benztropine. He also stated, without prompting, that he liked the olanzapine. He still attempts to cheek medications and does need checking. He slept throughout the day on and off. Assessment: A/VH: will not respond to this question Sleep: Napped ADL's: Needs assistance/prompting. Showered in the morning put on clean scrubs Group attendance: No Were Meds taken: Yes, pt compliant w/med pass and the request to open his mouth move his tongue around and sat w/this nurse and talked after each med pass. Any med S/E: None reported or observed Mental Status Exam Appearance: showered Eye contact: Poor Behavior: Guarded, isolative, obsessive/compulsive behavior Speech: Soft, poverty of speech Mood: Dysthymic. Affect: Constricted, flat at times Thought process: Thought blocking Thought Content: Medications Cognition: Impaired Insight: Impaired. Judgment: Impaired. Interventions PRN's used: N/A Therapeutic interventions: attempted 1:1 assessment, provided therapeutic communication, redirection, medication administration/education/monitoring for compliance, monitor Q15 minutes for safety. Restraints/seclusion/emergency medication: None Justification of Continued Inpatient Treatment: Pt is GD unable to utilize the resources available to him. He is unable to provide himself with detention, clothing, or food.
[2019-02-16 19:45] VITALS: BP 120/57
[2019-02-16] MEDS: atorvastatin 20mg tablet PO SCH (22:44)
--- NOTE | 2019-02-17 02:17 | NUR ---
Nursing Progress Note Legal hold: 5250 Client on involuntary status for GD. Report received from SREEDHAR Garrett, with use of SBAR. 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 Per patient's brother, on 12/26 the patient was discharged from a mental health facility and was initially doing well. However, the patient stopped taking his medication and has steadily declined. Assessment What has happened this shift: Pt ambulating on unit at start of shift. 1:1 assessment pt speech slow and halting. Does not always answer questions. Med pass took only Zyprexa fist time. Refused second attempt by different staff person took remaining meds on third attempt. Assessment: A/VH: will not respond to this question Sleep: Sleeping at this time. ADL's: Needs assistance/prompting. Showered in the morning put on clean scrubs Group attendance: No Were Meds taken: Yes, on third attempt. Pt compliant w/med pass and the request to open his mouth move his tongue around. Any med S/E: None reported or observed Mental Status Exam Appearance: showered Eye contact: Poor Behavior: Guarded, isolative, obsessive/compulsive behavior Speech: Soft, poverty of speech Mood: Dysthymic. Affect: Constricted, flat at times Thought process: Thought blocking Thought Content: not clear Cognition: Impaired Insight: Impaired. Judgment: Impaired. Interventions PRN's used: N/A Therapeutic interventions: attempted 1:1 assessment, provided therapeutic communication, redirection, medication administration/education/monitoring for compliance, monitor Q15 minutes for safety. Restraints/seclusion/emergency medication: None Justification of Continued Inpatient Treatment: Pt is GD unable to utilize the resources available to him. He is unable to provide himself with long-term, clothing, or food.
[2019-02-17 07:25] VITALS: BP 95/60
[2019-02-17] MEDS: OLANZapine 5mg rapidly disint. tablet PO SCH ×3 (07:32→20:06)
[2019-02-17] MEDS: benztropine 1mg tablet PO SCH (07:36)
[2019-02-17] MEDS: LORazepam 1 MG tablet PO SCH ×3 (07:36→20:07)
[2019-02-17] MEDS: lactose-reduced food (Ensure Enlive) - 237ml bottle PO SCH ×3 (08:00→18:00)
--- NOTE | 2019-02-17 13:27 | NUR ---
Reassessment: Pt PO 25-50% meals and 100% ensure enlive TIDWM. LBM 02/15. On 5250 hold awaiting re-conservatorship since gravely disabled per MD note. Will continue to monitor. Recommendations: 1) Continue with regular diet 2) Encourage PO intake 3) [place] food preferences 4) Ensure Enlive TID 5) Weekly wt Addendum: 02/17/19 at [address] Amended: Links added.
--- NOTE | 2019-02-17 17:26 | NUR ---
Nursing Progress Note Legal hold: 5250 Client on involuntary status for GD. Report received from Brian ELI, with use of SBAR. 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 Per patient's brother, on 12/26 the patient was discharged from a mental health facility and was initially doing well. However, the patient stopped taking his medication and has steadily declined. Assessment What has happened this shift: Pt is a small extremely thin, frail male whom appears slightly younger than stated age. He is dressed is clean hospital scrubs with nice clean hair. His speech is both direct and focused. He is focused on getting his basic needs met asking for example he asked for his room to be warmer and more food through out the shift. Each med pass pt will say, Im not taking my meds if given a second to think about it, a moment of silence, he will say, no give me my pills. Per Dr. Newell the benztropine was stopped due to pt refusing it and complaining of xerostomia causing him to over hydrate. Assessment: SI/HI: Denies A/VH: States, no Sleep: Napped ADL's: Needs assistance/prompting Group attendance: No Were Meds taken: Yes, pt compliant w/med pass and the request to open his mouth move his tongue around and sat w/this nurse and talked after each med pass. Any med S/E: Xerostomia; benztropine stopped Mental Status Exam Appearance: thin frail clean young male Eye contact: Fair Behavior: Guarded, isolative, obsessive/compulsive behavior Speech: Soft, poverty of speech Mood: Dysthymic. Affect: Constricted, flat at times Thought process: Improved thought blocking Thought Content: Medications, food and warmth Cognition: Impaired Insight: Absent Judgment: Exhibited poor Interventions PRN's used: N/A Therapeutic interventions: attempted 1:1 assessment, provided therapeutic communication, redirection from excessive drinking when needed, encouraged to go to groups, medication administration/education/monitoring for compliance, monitor Q15 minutes for safety. Restraints/seclusion/emergency medication: None Justification of Continued Inpatient Treatment: Pt is GD unable to utilize the resources available to him. He is unable to provide himself with group home, clothing, or food.
[2019-02-17 20:00] VITALS: BP 119/81
[2019-02-17] MEDS: atorvastatin 20mg tablet PO SCH (20:06)
--- NOTE | 2019-02-17 23:53 | NUR ---
Nursing Progress Note Legal hold: 5250 Client on involuntary status for GD. Report received from Gerry ELI, with use of SBAR. Why are they here: Patient is a 23 year old male brought in by his brother/electrician outside, for a mental health evaluation after the patient stopped taking his psychiatric medication, stopped his ADL'S and has not been eating. Per patient's brother, on 12/26 the patient was discharged from a mental health facility and was initially doing well. However, the patient stopped taking his medication and has steadily declined. Assessment What has happened this shift: Pt spends time between his bedroom and group room. Pt asks for water and cookies, denies s/i, denies a/vh. Pt tells me he is no longer taking cogentin and asks for help to find a show on tv. Pt answers open ended questions w/brief yes or no answers. Assessment: SI/HI: Denies A/VH: States, no Sleep: Napped ADL's: Needs assistance/prompting Group attendance: No Were Meds taken: Yes, Pt only briefly allowed zyprexa to dissolve on his tongue before swallowing med. Any med S/E: Xerostomia; benztropine stopped Mental Status Exam Appearance: thin frail clean young male Eye contact: Fair Behavior: Guarded, isolative, obsessive/compulsive behavior Speech: Soft, poverty of speech Mood: Dysthymic. Affect: Constricted, flat at times Thought process: Improved thought blocking Thought Content: asking for help w/selecting tv shows, and asks for cookies and snacks Cognition: Impaired Insight: Absent Judgment: Exhibited poor Interventions PRN's used: N/A Therapeutic interventions: attempted 1:1 assessment, provided therapeutic communication, redirection from excessive drinking when needed, encouraged to go to groups, medication administration/education/monitoring for compliance, monitor Q15 minutes for safety. Restraints/seclusion/emergency medication: None Justification of Continued Inpatient Treatment: Pt is GD unable to utilize the resources available to him. He is unable to provide himself with retirement, clothing, or food.
[2019-02-18 07:34] VITALS: BP 112/65
[2019-02-18] MEDS: OLANZapine 5mg rapidly disint. tablet PO SCH ×3 (08:30→20:27)
[2019-02-18] MEDS: lactose-reduced food (Ensure Enlive) - 237ml bottle PO SCH ×3 (08:30→18:10)
[2019-02-18] MEDS: LORazepam 1 MG tablet PO SCH ×3 (08:30→20:28)
--- NOTE | 2019-02-18 17:37 | NUR ---
Nursing Progress Note Legal hold: 5250 Client on involuntary status for GD. Report received from Brian ELI, with use of SBAR. 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 Per patient's brother, on 12/26 the patient was discharged from a mental health facility and was initially doing well. However, the patient stopped taking his medication and has steadily declined. Assessment What has happened this shift: Pt is a small extremely thin, frail male whom appears slightly younger than stated age. He is dressed is clean hospital scrubs after showering. Patient does not interact with staff unless he needs something to eat or drink. Continues to ask for additional water and cookies or crackers throughout the day. Does not accept limits well. States "you are being mean" when limits are set on his continuous requests for water. Patient eats poorly, prefers sweets over any other food group, and drinks copious amounts of water unless closely monitored. Accepted all medications without event. Assessment: SI/HI: Denies A/VH: States, no Sleep: Napped ADL's: Needs assistance/prompting Group attendance: No Were Meds taken: Yes, pt compliant w/med pass and the request to open his mouth move his tongue around and sat w/this nurse and talked after each med pass. Any med S/E: Xerostomia; benztropine stopped Mental Status Exam Appearance: thin frail clean young male Eye contact: Fair Behavior: Guarded, isolative, obsessive/compulsive behavior Speech: Soft, poverty of speech Mood: Dysthymic. Affect: Constricted, flat at times Thought process: Improved thought blocking Thought Content: Medications, food and warmth Cognition: Impaired Insight: Absent Judgment: Exhibited poor Interventions PRN's used: N/A Therapeutic interventions: attempted 1:1 assessment, provided therapeutic communication, redirection from excessive drinking when needed, encouraged to go to groups, medication administration/education/monitoring for compliance, monitor Q15 minutes for safety. Restraints/seclusion/emergency medication: None Justification of Continued Inpatient Treatment: Pt is GD unable to utilize the resources available to him. He is unable to provide himself with jail, clothing, or food.
[2019-02-18 20:00] VITALS: BP 112/73
[2019-02-18] MEDS: atorvastatin 20mg tablet PO SCH (20:28)
[2019-02-18] MEDS: traZODone 50mg tablet PO PRN ×2 (20:29→23:27)
--- NOTE | 2019-02-19 00:31 | NUR ---
Nursing Progress Note Legal hold: 5250 Client on involuntary status for GD. Report received from Gerry ELI, with use of SBAR. Why are they here: Patient is a 23 year old male brought in by his brother/drafting technician, for a mental health evaluation after the patient stopped taking his psychiatric medication, stopped his ADL'S and has not been eating. Per patient's brother, on 12/26 the patient was discharged from a mental health facility and was initially doing well. However, the patient stopped taking his medication and has steadily declined. Assessment What has happened this shift: pt was in his room at change of shift, asking for a burrito, then changed his mind. 1:1 assessment completed at bedside. pt denies s/i. Pt seems bothered to answer questions and states "can you just leave?" Explained to patient that I need to talk w/him for a few minutes then I would leave and pt agreed to this. Pt initially denies a/vh then states "Ok It's hard to say if I see or hear anything, Its too distracting for me and sometimes I can hear them but I dont know what theyre saying and sometimes I just feel what they are saying but I cant tell what they say." Pt is a/ox4, states his "little brother brought me here." Pt took prn for sleep tonight as he had difficulty sleeping last night. He is initially resistant to take meds then decides he will try the sleep medication. Pt was found to have a water pitcher liner hidden near the side of his bed on the floor that was not there earlier in the shift during assessment. pt continues to drink excessive amts of water if not watched closely. pt became agitated about water liner being removed but then fell asleep shortly after. Pt water intake has been monitored closely this evening. Assessment: SI/HI: Denies A/VH: pt reports "distracting voices" but is unable to state what he hears Sleep: poor sleep last night took prn tonight for sleep ADL's: Needs assistance/prompting Group attendance: No Were Meds taken: Yes, Any med S/E: Xerostomia; Mental Status Exam Appearance: thin frail clean young male Eye contact: Fair Behavior: Guarded, isolative, obsessive/compulsive behavior Speech: Soft, poverty of speech Mood: Dysthymic. Affect: Constricted, flat at times Thought process: linear,guarded paranoid Thought Content: Medications, food and warmth, states he is concerned about "hydration." Educated pt on properly hydrating and being careful not to overhydrate. Cognition: Impaired Insight: Absent Judgment: poor Interventions PRN's used: N/A Therapeutic interventions: attempted 1:1 assessment, provided therapeutic communication, redirection from excessive drinking when needed, encouraged to go to groups, medication administration/education/monitoring for compliance, monitor Q15 minutes for safety. Restraints/seclusion/emergency medication: None Justification of Continued Inpatient Treatment: Pt is GD unable to utilize the resources available to him. He is unable to provide himself with nursing home, clothing, or food.
[2019-02-19 07:16] VITALS: BP 111/72
[2019-02-19] MEDS: lactose-reduced food (Ensure Enlive) - 237ml bottle PO SCH ×3 (08:17→18:02)
[2019-02-19] MEDS: OLANZapine 5mg rapidly disint. tablet PO SCH ×3 (08:17→20:43)
[2019-02-19] MEDS: LORazepam 1 MG tablet PO SCH ×3 (08:17→20:42)
--- NOTE | 2019-02-19 18:05 | NUR ---
Nursing Progress Note Legal hold: TCON Client on involuntary status for GD. Report received from Vanesa LYONS, with use of SBAR. Why are they here: Patient is a 23 year old male brought in by his brother/case sealer, for a mental health evaluation after the patient stopped taking his psychiatric medication, stopped his ADL'S and has not been eating. Per patient's brother, on 12/26 the patient was discharged from a mental health facility and was initially doing well. However, the patient stopped taking his medication and has steadily declined. Assessment What has happened this shift: Pt was in his room at change of shift. 1:1 assessment completed at bedside. Pt denies s/i. Pt is bothered by questions and states "can you just leave?" Explained reasoning for questions but he still insisted on nurse leaving. Pt denies a/vh. Pt is a/ox4. He is initially resistant to take meds but ended up being compliant. He appears to try and cheek his medications so RN spent an extended amount of time with him to ensure medications dissolved. Pt refused water during med pass. His requests for water and snacks did resume later on in the day. Pt also requesting arm band again despite taking them off multiple times in recent past. Assessment: SI/HI: Denies A/VH: denies Sleep: 6.75 NOC ADL's: Needs assistance/prompting Group attendance: No Were Meds taken: Yes, reluctantly Any med S/E: Xerostomia (visible cracked tongue) Mental Status Exam Appearance: thin, frail Eye contact: Fair Behavior: Guarded, isolative, obsessive/compulsive behavior Speech: Soft, poverty of speech Mood: Dysthymic. Affect: Constricted, flat at times Thought process: linear,guarded , paranoid Thought Content: Medications, snacks, water & armbands Cognition: Impaired Insight: Absent Judgment: poor Interventions PRN's used: N/A Therapeutic interventions: attempted 1:1 assessment, provided therapeutic communication, redirection from excessive drinking when needed, encouraged to go to groups, medication administration/education/monitoring for compliance, monitor Q15 minutes for safety. Restraints/seclusion/emergency medication: None Justification of Continued Inpatient Treatment: Pt is GD unable to utilize the resources available to him. He is unable to provide himself with senior care, clothing, or food.
[2019-02-19] MEDS: atorvastatin 20mg tablet PO SCH (20:43)
[2019-02-19] MEDS: traZODone 50mg tablet PO PRN (20:43)
--- NOTE | 2019-02-19 22:31 | NUR ---
Nursing Progress Note Legal hold: TCON Client on involuntary status for GD. Report received from Brian LYONS, with use of SBAR. Why are they here: Patient is a 23 year old male brought in by his brother/press washer, for a mental health evaluation after the patient stopped taking his psychiatric medication, stopped his ADL'S and has not been eating. Per patient's brother, on 12/26 the patient was discharged from a mental health facility and was initially doing well. However, the patient stopped taking his medication and has steadily declined. Assessment What has happened this shift: Pt was in group room at change of shift. 1:1 assessment completed at bedside. pt denies s/i, denies h/i, continues to endorse AH but doesnt know what they are saying. Pt is somewhat resistive to questions and doesn't want to talk. Pt spent evening watching tv. Pts roommate reports patient had been drinking out of roommates water pitcher. Pt continues to have fluid intake monitored. Discussed pt drinking only from the cups of water provided to him and not his roommates pitcher. Instructed pt to let this sign writer letterer or painter know when he needed more water. Pt is also hiding water cups and liners he finds in the trash next to his bed. Requested pt keep his water on the table next to his bed rather than the floor which pt complied with. Pts water intake was monitored closely this evening. Pt mouth was also checked after he took his evening meds. pt becomes slighty agitated when asked to see in his mouth for meds. Pt swallows zyprexa w/out allowing it to dissolve. Assessment: SI/HI: Denies A/VH: denies Sleep: sleeps "good" ADL's: Needs assistance/prompting Group attendance: No Were Meds taken: Yes, reluctantly Any med S/E: Xerostomia (visible cracked tongue) Mental Status Exam Appearance: thin, frail, unkempt appropriately dressed for weather Eye contact: Fair Behavior: Guarded, isolative, obsessive/compulsive behavior Speech: Soft, poverty of speech Mood: Dysthymic. Affect: Constricted, flat at times Thought process: linear,guarded , paranoid Thought Content: Medications, snacks, water & armbands Cognition: Impaired Insight: Absent Judgment: poor Interventions PRN's used: N/A Therapeutic interventions: attempted 1:1 assessment, provided therapeutic communication, redirection from excessive drinking when needed, encouraged to go to groups, medication administration/education/monitoring for compliance, monitor Q15 minutes for safety. Restraints/seclusion/emergency medication: None Justification of Continued Inpatient Treatment: Pt is GD unable to utilize the resources available to him. He is unable to provide himself with senior living, clothing, or food.
[2019-02-20 08:00] VITALS: BP 108/64
[2019-02-20] MEDS: LORazepam 1 MG tablet PO SCH ×3 (08:30→21:05)
[2019-02-20] MEDS: lactose-reduced food (Ensure Enlive) - 237ml bottle PO SCH ×3 (08:30→18:00)
[2019-02-20] MEDS: OLANZapine 5mg rapidly disint. tablet PO SCH ×3 (08:30→21:05)
--- NOTE | 2019-02-20 15:38 | NUR ---
Nursing Progress Note Legal hold: TCON Client on involuntary status for GD. Report received from Vanesa ELI, with use of SBAR. Why are they here: Patient is a 23 year old male brought in by his brother/retail business development manager, for a mental health evaluation after the patient stopped taking his psychiatric medication, stopped his ADL'S and has not been eating. Per patient's brother, on 12/26 the patient was discharged from a mental health facility and was initially doing well. However, the patient stopped taking his medication and has steadily declined. Assessment What has happened this shift: Patient in bed upon change of shift observation. Introduction made. Patient greeted staff without expression stating "Stop. Leave." Patient asked to cooperate with staff today by taking medications as prescribed, being mindful of excessive water drinking and interacting appropriately with staff. Patient stated "OK." Unable to participate in 1:1 nursing assessment due to agitation or frustration. When asked if he experienced hearing voices in his head patient responded "Yes. No. Stop." Patient maintains a fixed stare, rigid movements and a clipped manner of response. Appears to respond to clear limits and direction. Assessment: SI/HI: Denies A/VH: States, no Sleep: Napped ADL's: Needs assistance/prompting Group attendance: No Were Meds taken: Yes, pt compliant w/med pass and the request to open his mouth move his tongue around and sat w/this nurse and talked after each med pass. Any med S/E: Xerostomia; benztropine stopped Mental Status Exam Appearance: thin frail clean young male Eye contact: Fair Behavior: Guarded, isolative, obsessive/compulsive behavior Speech: Soft, poverty of speech Mood: Dysthymic. Affect: Constricted, flat at times Thought process: Improved thought blocking Thought Content: Medications, food and warmth Cognition: Impaired Insight: Absent Judgment: Exhibited poor Interventions PRN's used: N/A Therapeutic interventions: attempted 1:1 assessment, provided therapeutic communication, redirection from excessive drinking when needed, encouraged to go to groups, medication administration/education/monitoring for compliance, monitor Q15 minutes for safety. Restraints/seclusion/emergency medication: None Justification of Continued Inpatient Treatment: Pt is GD unable to utilize the resources available to him. He is unable to provide himself with longterm, clothing, or food.
[2019-02-20 19:40] VITALS: BP 110/76
[2019-02-20] MEDS: atorvastatin 20mg tablet PO SCH (21:05)
--- NOTE | 2019-02-20 22:46 | NUR ---
Nursing Progress Note Legal hold: TCON Client on involuntary status for GD. Report received from ELOY Berkowitz, with use of SBAR. Why are they here: Patient is a 23 year old male brought in by his brother/wet finisher wool, for a mental health evaluation after the patient stopped taking his psychiatric medication, stopped his ADL'S and has not been eating. Per patient's brother, on 12/26 the patient was discharged from a mental health facility and was initially doing well. However, the patient stopped taking his medication and has steadily declined. Assessment What has happened this shift: Pt was in group room at shift change. Pt came into hallway requesting some water. Pt was given a pitcher of water and will monitor throughout shift. Pt did not eat his dinner this evening, but did partake in evening snack. Pt later reqested a burrito, which he was denied. Re educated pt on the importance of eating his meals. Pt said yes then walked away. Pt was reluctant with with medicaition admin, but did comply. Pt was monitored and his mouth was checked. Pt's [facility]entiary memory is not intact for some things. Pt is unable to remembe this RN from last week and does not remember how or when he was admitted. Pt states "I was set up" to the question of why he is here. Pt doesn't understand why he is here, but does say he feels like he is getting better. Pt up several time requeting a burrito. Burrito denies - again explained the importance of eating meals. Assessment: SI/HI: Pt wouldn't answer. A/VH: Pt wouldn't answer. Sleep: Currently sleeping. Will continue to [facility]. ADL's: Needs assistance/prompting Group attendance: shift manager, no group Were Meds taken: Yes, reluctantly. Mouth checked for cheeking. Any med S/E: Xerostomia (visible cracked tongue) Mental Status Exam Appearance: Thin, unkempt appropriately dressed for unit. Eye contact: Fair Behavior: Guarded, isolative, obsessive/compulsive behavior Speech: Soft, poverty of speech Mood: Dysthymic. Affect: Constricted, flat at times Thought process: linear,guarded , paranoid Thought Content: Snack Cognition: Impaired Insight: Absent Judgment: Poor Interventions PRN's used: None Therapeutic interventions: attempted 1:1 assessment, provided therapeutic communication, redirection from excessive drinking when needed, encouraged to go to groups, educated and encouraged pt to eat meals, medication administration/education/monitoring for compliance, monitor Q15 minutes for safety. Restraints/seclusion/emergency medication: None Justification of Continued Inpatient Treatment: Pt is GD unable to utilize the resources available to him. He is unable to provide himself with senior living, clothing, or food.
[2019-02-21] MEDS: lactose-reduced food (Ensure Enlive) - 237ml bottle PO SCH ×3 (08:16→18:09)
[2019-02-21] MEDS: OLANZapine 5mg rapidly disint. tablet PO SCH ×3 (08:16→21:42)
[2019-02-21] MEDS: LORazepam 1 MG tablet PO SCH ×2 (08:16→12:50)
[2019-02-21 08:35] LABS: ALANINE AMINOTRANSFERASE 64 U/L (12-78); ALBUMIN/GLOBULIN RATIO 1.5 (1.1-1.5); ALKALINE PHOSPHATASE 55 IU/L (46-116); ANION GAP 7 (8-16); ASPARTATE AMINO TRANSFERASE 78 U/L (10-37); BILIRUBIN,TOTAL 0.4 MG/DL (0.1-1.0); BLOOD UREA NITROGEN 11 MG/DL (7-18); BUN/CREATININE RATIO 14.7 (5.4-32.0); CALCIUM 9.4 MG/DL (8.5-10.1); CHLORIDE 105 MMOL/L (99-107); CHOL/HDL RATIO 3.1 (0.00-4.99); CHOLESTEROL 181 MG/DL (0-200); CREATININE 0.75 MG/DL (0.60-1.10); GLUCOSE 92 MG/DL (70-104); HDL CHOLESTEROL 59 MG/DL (35-60); LDL CHOLESTEROL 105 MG/DL (50-100); POTASSIUM 4.2 MMOL/L (3.5-5.1); SODIUM 141 MMOL/L (135-145); TOTAL CARBON DIOXIDE 28.8 MMOL/L (24-32); TOTAL PROTEIN 6.7 G/DL (6.4-8.2); TRIGLYCERIDES 115 MG/DL (20-135); eGFR > 90 ML/MIN
--- NOTE | 2019-02-21 10:24 | NUR ---
Reassessment: Pt continues with fluctuations in PO intake. Documented with 0% at breakfast and dinner 02/19 however 100% at lunch and 100% at breakfast this morning. Per RN notes pt participated in evening snack 02/19 and requesting burritos. Pt documented with 100% PO intake of Ensure Enlive TID. Per MD notes pt has again started to drink excessive amount of water. LBM 02/19. Will continue to follow. Recommendations: 1) Continue with regular diet 2) Encourage PO intake 3) [place] food preferences 4) Ensure Enlive TID 5) Weekly wt Addendum: 02/21/19 at [address] Amended: Links added.
--- NOTE | 2019-02-21 17:31 | NUR ---
Nursing Progress Note Legal hold: TCON Client on involuntary status for GD. Report received from Tere Salas RN, with use of SBAR. Why are they here: Patient is a 23 year old male brought in by his brother/building certifier, for a mental health evaluation after the patient stopped taking his psychiatric medication, stopped his ADL'S and has not been eating. Per patient's brother, on 12/26 the patient was discharged from a mental health facility and was initially doing well. However, the patient stopped taking his medication and has steadily declined. Assessment What has happened this shift: Pt was in his room resting at shift change. Shift reports that he was asking for cookies at 0530 this morning. Wet Pan Operator heavily encouraged pt to get his labs drawn this morning as he was adamant to not have them done. Pt requested to have his medications before breakfast today. Pt reports improvement since admit. He denies any AH VH. Pt is unable to remember how or when he was admitted. Pt continues to be reluctant to care. He initially denies wanting a I.D. Bracelet, then quickly returns to ask for one. Assessment: SI/HI: Denies A/VH: Denies Sleep: Reports hes had enough sleep. ADL's: Needs assistance/prompting Group attendance: Yes Were Meds taken: Yes, reluctantly. Mouth checked for cheeking. Any med S/E: Xerostomia (visible cracked tongue) Mental Status Exam Appearance: Thin, unkempt, appropriately dressed for unit. Eye contact: Fair Behavior: Guarded, isolative, obsessive/compulsive behavior Speech: Soft, poverty of speech Mood: Dysthymic. Affect: Constricted, flat at times Thought process: linear, guarded, paranoid Thought Content: Snack, discharge Cognition: Impaired Insight: Absent Judgment: Poor Interventions PRN's used: None Therapeutic interventions: attempted 1:1 assessment, provided therapeutic communication, redirection from excessive drinking when needed, encouraged to go to groups, educated and encouraged pt to eat meals, medication administration/education/monitoring for compliance, monitor Q15 minutes for safety. Restraints/seclusion/emergency medication: None Justification of Continued Inpatient Treatment: Pt is GD unable to utilize the resources available to him. He is unable to provide himself with penitentiary, clothing, or food.
[2019-02-21 19:50] VITALS: BP 101/60
[2019-02-21] MEDS: LORazepam 0.5 MG tablet PO SCH (21:39)
[2019-02-21] MEDS: atorvastatin 20mg tablet PO SCH (21:40)
--- NOTE | 2019-02-22 01:41 | NUR ---
Nursing Progress Note Legal hold: TCON Client on involuntary status for GD. Report received from ELOY Berkowitz, with use of SBAR. Why are they here: Patient is a 23 year old male brought in by his brother/frame runner, for a mental health evaluation after the patient stopped taking his psychiatric medication, stopped his ADL'S and has not been eating. Per patient's brother, on 12/26 the patient was discharged from a mental health facility and was initially doing well. However, the patient stopped taking his medication and has steadily declined. Assessment What has happened this shift: Pt was visible on unit at shift change. Pt greeted this medical technical writer by name stating "I just wanted to say hi", "feeling better, just doing my thing." Pt came to RN wanting snack early, stated he just need to wait 30 mins and scheduled snack time would begin. Pt was cooperative with 1:1 assessment and medication administration. Pt continues to display repetitive moments with hands, however these gestures seem to have decreased. Pt is able to sit and have a short conversation. Pt ate 100% of breakfast and lunch. Pt asked for a burrito at snack time, but when it came to this time pt refused the burrito. Pt denies SI, A/VH. Assessment: SI/HI: Denies A/VH: Denies Sleep: Currently sleeping. Will continue to monitor. 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 Mouth checked for cheeking. Any med S/E: Xerostomia Mental Status Exam Appearance: Thin, unkempt, appropriately dressed for unit. Eye contact: Fair Behavior: Guarded, isolative, obsessive/compulsive behavior Speech: Soft, poverty of speech Mood: Dysthymic. Affect: Constricted, flat at times Thought process: Linear, guarded Thought Content: Pt wants to leave Cognition: Impaired Insight: Absent Judgment: Poor Interventions PRN's used: None Therapeutic interventions: attempted 1:1 assessment, provided therapeutic communication, redirection from excessive drinking when needed, encouraged to go to groups, educated and encouraged pt to eat meals, medication administration/education/monitoring for compliance, monitor Q15 minutes for safety. Restraints/seclusion/emergency medication: N/A Justification of Continued Inpatient Treatment: Pt is GD unable to utilize the resources available to him. He is unable to provide himself with prison, clothing, or food.
[2019-02-22 07:30] VITALS: BP 92/55
[2019-02-22] MEDS: lactose-reduced food (Ensure Enlive) - 237ml bottle PO SCH ×3 (08:00→18:00)
[2019-02-22] MEDS: LORazepam 0.5 MG tablet PO SCH ×4 (08:16→21:23)
[2019-02-22] MEDS: OLANZapine 5mg rapidly disint. tablet PO SCH ×3 (08:16→21:23)
--- NOTE | 2019-02-22 16:09 | NUR ---
Nursing Progress Note Legal hold: TCON Client on involuntary status for GD. Report received from Tere Salas RN, with use of SBAR. Why are they here: Patient is a 23 year old male brought in by his brother/show dog trainer, for a mental health evaluation after the patient stopped taking his psychiatric medication, stopped his ADL'S and has not been eating. Per patient's brother, on 12/26 the patient was discharged from a mental health facility and was initially doing well. However, the patient stopped taking his medication and has steadily declined. Assessment What has happened this shift: Patient awoke for breakfast and medications. He is compliant with treatment. Patient does not know why he was admitted, does not know what city his parents live in. He has made some progress since being admitted, but remains gravely disabled. Assessment: SI/HI: Denies A/VH: Denies Sleep: 5.25 hrs. NOC. Napped during daytime. ADL's: Needs assistance/prompting Group attendance: Yes Were Meds taken: Yes. Any med S/E: Xerostomia (visible cracked tongue) Mental Status Exam Appearance: Thin, unkempt, appropriately dressed for unit. Eye contact: Fair Behavior: Guarded, isolative, obsessive/compulsive behavior Speech: Soft, poverty of speech Mood: Dysthymic. Affect: Constricted, flat. Thought process: linear, guarded, paranoid Thought Content: Snack, discharge Cognition: Impaired Insight: Impaired. Judgment: Impaired. Interventions PRN's used: None Therapeutic interventions: 1:1 assessment, provided therapeutic communication, redirection from excessive drinking when needed, encouraged to go to groups, educated and encouraged pt to eat meals, medication administration/education/monitoring for compliance, monitor Q15 minutes for safety. Restraints/seclusion/emergency medication: None Justification of Continued Inpatient Treatment: Pt is GD unable to utilize the resources available to him. He is unable to provide himself with jail, clothing, or food.
[2019-02-22 20:00] VITALS: BP 109/75
[2019-02-22] MEDS: atorvastatin 20mg tablet PO SCH (21:23)
--- NOTE | 2019-02-23 01:53 | NUR ---
Nursing Progress Note Legal hold: TCON Client on involuntary status for GD. Report received from ELOY Berkowitz, with use of SBAR. Why are they here: Patient is a 23 year old male brought in by his brother/superintendent concrete mixing plant, for a mental health evaluation after the patient stopped taking his psychiatric medication, stopped his ADL'S and has not been eating. Per patient's brother, on 12/26 the patient was discharged from a mental health facility and was initially doing well. However, the patient stopped taking his medication and has steadily declined. Assessment What has happened this shift: Pt sitting in group room at shift change. Pt was again spontaneous in his greeting with this RN. Pt was medication compliant and appears not to be cheeking his medications. Precautions were taken and pt's mouth checked. Pt wasn't sure if he had a BM today, last documented was 02/19 - pt reports no symptoms and has bowel sounds x4. Pt didn't eat a full meal, but did eat portions of his scheduled meals. Pt was cooperative with 1:1 assessment. Pt was in group room for HS snack, but retired to his room early for bed. Assessment: SI/HI: None reported or observed. A/VH: None reported or observed. Sleep: Currently sleeping. Will continue to monitor. 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 Eye contact: Fair Behavior: Guarded, isolative, obsessive/compulsive behavior Speech: Soft, scarce, poverty of speech Mood: Dysthymic. Affect: Constricted, flat at times Thought process: Linear, guarded, paranoid Thought Content: Pt wants to leave Cognition: Impaired Insight: Impaired Judgment: Poor Interventions PRN's used: None Therapeutic interventions: attempted 1:1 assessment, provided therapeutic communication, redirection from excessive drinking when needed, encouraged to go to groups, educated and encouraged pt to eat meals, medication administration/education/monitoring for compliance, monitor Q15 minutes for safety. Restraints/seclusion/emergency medication: N/A Justification of Continued Inpatient Treatment: Pt is GD unable to utilize the resources available to him. He is unable to provide himself with long term, clothing, or food.
[2019-02-23 07:45] VITALS: BP 127/82
[2019-02-23] MEDS: LORazepam 0.5 MG tablet PO SCH ×4 (08:26→20:19)
[2019-02-23] MEDS: OLANZapine 5mg rapidly disint. tablet PO SCH ×3 (08:26→20:19)
[2019-02-23] MEDS: lactose-reduced food (Ensure Enlive) - 237ml bottle PO SCH ×3 (08:31→18:05)
--- NOTE | 2019-02-23 13:56 | NUR ---
Nursing Progress Note Legal hold: TCON Client on involuntary status for GD. Report received from Tere Salas RN, with use of SBAR. 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 Per patient's brother, on 12/26 the patient was discharged from a mental health facility and was initially doing well. However, the patient stopped taking his medication and has steadily declined. Assessment What has happened this shift: Patient attends all meals, otherwise sleeps and isolates in his room. Patient would not allow physical assessment, and did not want to take a.m. meds. I told him that if he was not going to take his medications we would have to Riese him and give injections, patient readily took medications. He still does some OCD activity such as reaching for the pill bottle, does repetitive motions of grabbing pill container until he is ready. Patient believes he had a bowel movement yesterday. He has been asking when he is going to be discharged. Directed him to talk with bilingual social worker. Assessment: SI/HI: Denies A/VH: Denies Sleep: 4.75 hrs. NOC. Napped during daytime. ADL's: Needs assistance/prompting Group attendance: No. Is too uncomfortable around people. Leaves right away. Were Meds taken: Yes. Any med S/E: Xerostomia (visible cracked tongue) Mental Status Exam Appearance: Thin, unkempt, appropriately dressed for unit. Eye contact: Fair Behavior: Guarded, isolative, obsessive/compulsive behavior Speech: Soft, poverty of speech Mood: Dysthymic. Affect: Constricted, flat. Thought process: linear, guarded, paranoid Thought Content: Snacks, discharge Cognition: Impaired Insight: Impaired. Judgment: Impaired. Interventions PRN's used: None Therapeutic interventions: 1:1 assessment, provided therapeutic communication, redirection from excessive drinking when needed, encouraged to go to groups, educated and encouraged pt to eat meals, medication administration/education/monitoring for compliance, monitor Q15 minutes for safety. Restraints/seclusion/emergency medication: None Justification of Continued Inpatient Treatment: Pt is GD unable to utilize the resources available to him. He is unable to provide himself with group home, clothing, or food.
--- NOTE | 2019-02-23 18:41 | NUR ---
Patient in room MH 322. I have received report from ELOY Berkowitz and had the opportunity to ask questions and assume patient care.
--- NOTE | 2019-02-23 19:00 | NUR ---
Patient refused VS. Cooperative with physical assessment so long as preformed outside of his room.
[2019-02-23] MEDS: atorvastatin 20mg tablet PO SCH (20:19)
--- NOTE | 2019-02-24 01:08 | NUR ---
Nursing Progress Note Legal hold: TCON Client on involuntary status for GD. Report received from ELOY Berkowitz, with use of SBAR. 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 Per patient's brother, on 12/26 the patient was discharged from a mental health facility and was initially doing well. However, the patient stopped taking his medication and has steadily declined. Assessment What has happened this shift: Patient pacing halls initially. Refused dinner tray but later received PB&J uncrustable, chips, milk and juice. Denies depression; states he knows things will be get better. Compliant with physical assessment so long as it took place in the community room. Denied vital signs. Took medications without issues. No pocketing or cheeking observed. Flat affect, skin pale. Cooperative. Went to room at approximately 2100 for bed. No PRN's needed. Assessment: SI/HI: Denies A/VH: Denies Sleep: ADL's: Needs assistance/prompting Group attendance: N/A Were Meds taken: Yes. Any med S/E: Xerostomia (visible cracked tongue) Mental Status Exam Appearance: Thin, unkempt, appropriately dressed for unit. Eye contact: Fair Behavior: Guarded, isolative, obsessive/compulsive behavior Speech: Soft, poverty of speech Mood: Dysthymic. Affect: Constricted, flat. Thought process: linear, guarded, paranoid Thought Content: Snacks, discharge Cognition: Impaired Insight: Impaired. Judgment: Impaired. Interventions PRN's used: None Therapeutic interventions: 1:1 assessment, provided therapeutic communication, redirection from excessive drinking when needed, encouraged to go to groups, educated and encouraged pt to eat meals, medication administration/education/monitoring for compliance, monitor Q15 minutes for safety. Restraints/seclusion/emergency medication: None Justification of Continued Inpatient Treatment: Pt is GD unable to utilize the resources available to him. He is unable to provide himself with skilled nursing, clothing, or food.
[2019-02-24] MEDS: LORazepam 0.5 MG tablet PO SCH ×4 (08:10→21:32)
[2019-02-24] MEDS: OLANZapine 5mg rapidly disint. tablet PO SCH ×3 (08:10→20:28)
[2019-02-24] MEDS: lactose-reduced food (Ensure Enlive) - 237ml bottle PO SCH ×3 (08:34→18:00)
--- NOTE | 2019-02-24 08:41 | NUR ---
Patient refused vitals
--- NOTE | 2019-02-24 12:55 | NUR ---
Nursing Progress Note Legal hold: TCON Client on involuntary status for GD. Report received from Tere Salas RN, with use of SBAR. 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 Per patient's brother, on 12/26 the patient was discharged from a mental health facility and was initially doing well. However, the patient stopped taking his medication and has steadily declined. Assessment What has happened this shift: Patient refused vitals, physical assessment and attempted to refuse medications, informed him that he needed medications and he took them. Tells me to "leave" when in his room. He was upset because someone had opened and poured his ensure into a dietary cup and refused to drink it. Patient has been overhydrating. He has had limit that he can have 3 liters on dayshift and 2-3 liters on nights. He is seen attempting to fill water pitcher up in room and from day room. Dr. Chadwick agreed that limit set for patients is appropriate. He is going from staff to staff requesting water. Assessment: SI/HI: Denies A/VH: Denies Sleep: 6.25 hrs. NOC. Napped during daytime. ADL's: Needs assistance/prompting Group attendance: No. Is too uncomfortable around people. Leaves right away. Were Meds taken: Yes. Any med S/E: Xerostomia (visible cracked tongue) Mental Status Exam Appearance: Thin, unkempt, appropriately dressed for unit. Eye contact: Fair Behavior: Guarded, isolative, obsessive/compulsive behavior Speech: Soft, poverty of speech Mood: Dysthymic. Affect: Constricted, flat. Thought process: linear, guarded, paranoid, thought blocking Thought Content: Snacks, discharge, water Cognition: Impaired Insight: Impaired. Judgment: Impaired. Interventions PRN's used: None Therapeutic interventions: 1:1 assessment, provided therapeutic communication, redirection from excessive drinking when needed, encouraged to go to groups, educated and encouraged pt to eat meals, medication administration/education/monitoring for compliance, monitor Q15 minutes for safety. Restraints/seclusion/emergency medication: None Justification of Continued Inpatient Treatment: Pt is GD unable to utilize the resources available to him. He is unable to provide himself with snf, clothing, or food.
[2019-02-24 16:09] LABS: ALBUMIN 4.4 G/DL (3.4-5.0); ANION GAP 8 (8-16); BLOOD UREA NITROGEN 15 MG/DL (7-18); BUN/CREATININE RATIO 23.1 (5.4-32.0); CALCIUM 9.6 MG/DL (8.5-10.1); CHLORIDE 103 MMOL/L (99-107); CREATININE 0.65 MG/DL (0.60-1.10); GLUCOSE 99 MG/DL (70-104); POTASSIUM 4.2 MMOL/L (3.5-5.1); SODIUM 140 MMOL/L (135-145); TOTAL CARBON DIOXIDE 29.5 MMOL/L (24-32); eGFR > 90 ML/MIN
[2019-02-24 20:21] VITALS: BP 116/79
[2019-02-24] MEDS: atorvastatin 20mg tablet PO SCH (20:27)
--- NOTE | 2019-02-24 20:41 | NUR ---
Nursing Progress Note Legal hold: TCON Client on involuntary status for GD. Report received from ELOY Berkowitz, with use of SBAR. 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 Per patient's brother, on 12/26 the patient was discharged from a mental health facility and was initially doing well. However, the patient stopped taking his medication and has steadily declined. Assessment What has happened this shift: Patient was cooperative with VT's and Medications this shift. He asked how Im doing and after my reply he stated that he is going to read a book and asked the charge nurse for a book cem. Patient has been overhydrating. He has had limit that he can have 3 liters on dayshift and 2-3 liters on nights. He is seen attempting to fill water pitcher up in room and from day room. Dr. Chadwick agreed that limit set for patients is appropriate. He is going from staff to staff requesting water. Assessment: SI/HI: Denies A/VH: Denies Sleep: 6.25 hrs. NOC. Napped during daytime. ADL's: Needs assistance/prompting Group attendance: No. Is too uncomfortable around people. Leaves right away. Were Meds taken: Yes. Any med S/E: Xerostomia (visible cracked tongue) Mental Status Exam Appearance: Thin, unkempt, appropriately dressed for unit. Eye contact: Fair Behavior: Guarded, isolative, obsessive/compulsive behavior Speech: Soft, poverty of speech Mood: Dysthymic. Affect: Constricted, flat. Thought process: linear, guarded, paranoid, thought blocking Thought Content: Snacks, discharge, water Cognition: Impaired Insight: Impaired. Judgment: Impaired. Interventions PRN's used: None Therapeutic interventions: 1:1 assessment, provided therapeutic communication, redirection from excessive drinking when needed, encouraged to go to groups, educated and encouraged pt to eat meals, medication administration/education/monitoring for compliance, monitor Q15 minutes for safety. Restraints/seclusion/emergency medication: None Justification of Continued Inpatient Treatment: Pt is GD unable to utilize the resources available to him. He is unable to provide himself with mcc, clothing, or food.
[2019-02-25] MEDS: LORazepam 0.5 MG tablet PO SCH ×4 (07:48→20:24)
[2019-02-25] MEDS: OLANZapine 5mg rapidly disint. tablet PO SCH ×3 (07:48→20:24)
[2019-02-25 07:58] VITALS: BP 132/81
[2019-02-25] MEDS: lactose-reduced food (Ensure Enlive) - 237ml bottle PO SCH ×3 (08:11→18:58)
--- NOTE | 2019-02-25 10:13 | NUR ---
Reassessment: Pt 5250 pending new conservatorship. PO fluctuates and has decreased to 25% mainly starches on meals w/ 100% ensure enlive; likely r/t psychosis DX. Pt only small BMs but reports BM yesterday and does not complain of constipation per RN. MoM ordered PRN. Will continue to monitor. Recommendations: 1) Continue with regular diet 2) Encourage PO intake 3) [place] food preferences 4) Ensure Enlive TID 5) Weekly wt Addendum: 02/25/19 at [address] Amended: Links added.
--- NOTE | 2019-02-25 17:36 | NUR ---
Nursing Progress Note Legal hold: TCON Client on involuntary status for GD Report received from ELOY Alexis, with use of SBAR. 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 Per patient's brother, on 12/26 the patient was discharged from a mental health facility and was initially doing well. However, the patient stopped taking his medication and has steadily declined. Assessment What has happened this shift: Patient was resting in bed at change of shift. He is cooperative with medications this AM. He continues to be guarded and isolative. Patient has been over-hydrating and water intake is being limited. His limit is 3 liters on dayshift and 2-3 liters at night. He denies any AH/VH/SI. He reports his last BM was yesterday and was normal. Denies any SEs from medications, only xerostomia observed. Assessment: SI/HI: Denies A/VH: Denies Sleep: 7.25 hr NOC ADL's: Needs assistance/prompting Group attendance: Were Meds taken: Yes Any med S/E: Xerostomia (visible cracked tongue) Mental Status Exam Appearance: Thin, unkempt, appropriately dressed for unit in green scrubs Eye contact: Fair Behavior: Guarded, isolative, obsessive/compulsive behavior Speech: Soft, poverty of speech Mood: Dysthymic Affect: Constricted, flat. Thought process: linear, guarded, paranoid, thought blocking Thought Content: Snacks, discharge, water, bookmarks Cognition: Impaired Insight: Impaired. Judgment: Impaired. Interventions PRN's used: None Therapeutic interventions: 1:1 assessment, provided therapeutic communication, redirection from excessive drinking when needed, encouraged to go to groups, educated and encouraged pt to eat meals, medication administration/education/monitoring for compliance, monitor Q15 minutes for safety. Restraints/seclusion/emergency medication: None Justification of Continued Inpatient Treatment: Pt is GD unable to utilize the resources available to him. He is unable to provide himself with usp, clothing, or food.
[2019-02-25] MEDS: atorvastatin 20mg tablet PO SCH (20:23)
--- NOTE | 2019-02-25 22:03 | NUR ---
Nursing Progress Note Legal hold: TCON Client on involuntary status for GD Report received from ELOY Berkowitz, with use of SBAR. 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 Per patient's brother, on 12/26 the patient was discharged from a mental health facility and was initially doing well. However, the patient stopped taking his medication and has steadily declined. Assessment What has happened this shift: Patient was resting in bed at change of shift. He is cooperative with medications this HS. He continues to be guarded and isolative. Patient has been over-hydrating and water intake is being limited. His limit is 3 liters on dayshift and 2-3 liters at night. He denies any AH/VH/SI. He reports his last BM was yesterday and was normal. Denies any SEs from medications, only xerostomia observed. Assessment: SI/HI: Denies A/VH: Denies Sleep: 7.25 hr NOC ADL's: Needs assistance/prompting Group attendance: Were Meds taken: Yes Any med S/E: Xerostomia (visible cracked tongue) Mental Status Exam Appearance: Thin, unkempt, appropriately dressed for unit in green scrubs Eye contact: Fair Behavior: Guarded, isolative, obsessive/compulsive behavior Speech: Soft, poverty of speech Mood: Dysthymic Affect: Constricted, flat. Thought process: linear, guarded, paranoid, thought blocking Thought Content: Snacks, discharge, water, bookmarks Cognition: Impaired Insight: Impaired. Judgment: Impaired. Interventions PRN's used: None Therapeutic interventions: 1:1 assessment, provided therapeutic communication, redirection from excessive drinking when needed, encouraged to go to groups, educated and encouraged pt to eat meals, medication administration/education/monitoring for compliance, monitor Q15 minutes for safety. Restraints/seclusion/emergency medication: None Justification of Continued Inpatient Treatment: Pt is GD unable to utilize the resources available to him. He is unable to provide himself with nursing home, clothing, or food.
[2019-02-26] MEDS: LORazepam 0.5 MG tablet PO SCH ×4 (07:57→20:49)
[2019-02-26] MEDS: OLANZapine 5mg rapidly disint. tablet PO SCH ×3 (07:57→20:49)
[2019-02-26] MEDS: lactose-reduced food (Ensure Enlive) - 237ml bottle PO SCH ×3 (07:58→18:02)
[2019-02-26 08:07] VITALS: BP 107/74
--- NOTE | 2019-02-26 15:31 | NUR ---
Nursing Progress Note Legal hold: TCON Client on involuntary status for GD Report received from ELOY Alexis, with use of SBAR. Why are they here: Patient is a 23 year old male brought in by his brother/website project manager, for a mental health evaluation after the patient stopped taking his psychiatric medication, stopped his ADL'S and has not been eating. Per patient's brother, on 12/26 the patient was discharged from a mental health facility and was initially doing well. However, the patient stopped taking his medication and has steadily declined. Assessment What has happened this shift: Patient was resting in bed at change of shift. He is cooperative with medications this AM. He continues to be guarded and isolative. Patient has been over-hydrating and water intake is being limited. His limit is 3 liters on dayshift and 2-3 liters at night. Pt requests to stop his protein shakes, RN encouraged him to speak to his doctor about his concerns. He denies any AH/VH/SI. He reports his last BM was yesterday and was normal. Denies any SEs from medications, only xerostomia observed. SI/HI: Denies A/VH: Denies Sleep: 6.5 hr NOC ADL's: Needs assistance/prompting Group attendance: yes Were Meds taken: Yes Any med S/E: Xerostomia (visible cracked tongue) Mental Status Exam Appearance: Thin, unkempt, appropriately dressed for unit in green scrubs Eye contact: Fair Behavior: Guarded, isolative, obsessive/compulsive behavior Speech: Soft, poverty of speech Mood: Dysthymic Affect: Constricted, flat. Thought process: linear, guarded, paranoid, thought blocking Thought Content: Snacks, discharge, water, bookmarks Cognition: Impaired Insight: Impaired. Judgment: Impaired. Interventions PRN's used: Therapeutic interventions: 1:1 assessment, provided therapeutic communication, redirection from excessive drinking when needed, encouraged to go to groups, educated and encouraged pt to eat meals, medication administration/education/monitoring for compliance, monitor Q15 minutes for safety. Restraints/seclusion/emergency medication: None Justification of Continued Inpatient Treatment: Pt is GD unable to utilize the resources available to him. He is unable to provide himself with correction, clothing, or food.
--- NOTE | 2019-02-26 16:34 | NUR ---
DISCHARGE PLANNING: Faxed Patient Discharge Packet to [facility], after faxing phoned JASMIN and Kayleigh confirmed they did receive pt's placement pkt. JANESSA VillalpandoW
[2019-02-26 20:00] VITALS: BP 119/81
[2019-02-26] MEDS: atorvastatin 20mg tablet PO SCH (20:49)
--- NOTE | 2019-02-26 22:02 | NUR ---
Nursing Progress Note Legal hold: TCON Client on involuntary status for GD Report received from ELOY Torres, with use of SBAR. Why are they here: Patient is a 23 year old male brought in by his brother/project management intern, for a mental health evaluation after the patient stopped taking his psychiatric medication, stopped his ADL'S and has not been eating. Per patient's brother, on 12/26 the patient was discharged from a mental health facility and was initially doing well. However, the patient stopped taking his medication and has steadily declined. Assessment What has happened this shift: Patient was resting in bed at change of shift. He is cooperative with medications this PM. He continues to be guarded and isolative. Patient has been over-hydrating and water intake is being limited. His limit is 3 liters on dayshift and 2-3 liters at night. Pt requests to stop his protein shakes, RN encouraged him to speak to his doctor about his concerns. He denies any AH/VH/SI. He reports his last BM was yesterday and was normal. Denies any SEs from medications, only xerostomia observed. He is requesting less amount of water this shift. SI/HI: Denies A/VH: Denies Sleep: 6.5 hr NOC ADL's: Needs assistance/prompting Group attendance: yes Were Meds taken: Yes Any med S/E: Xerostomia (visible cracked tongue) Mental Status Exam Appearance: Thin, unkempt, appropriately dressed for unit in green scrubs Eye contact: Fair Behavior: Guarded, isolative, obsessive/compulsive behavior Speech: Soft, poverty of speech Mood: Dysthymic Affect: Constricted, flat. Thought process: linear, guarded, paranoid, thought blocking Thought Content: Snacks, discharge, water, bookmarks Cognition: Impaired Insight: Impaired. Judgment: Impaired. Interventions PRN's used: Therapeutic interventions: 1:1 assessment, provided therapeutic communication, redirection from excessive drinking when needed, encouraged to go to groups, educated and encouraged pt to eat meals, medication administration/education/monitoring for compliance, monitor Q15 minutes for safety. Restraints/seclusion/emergency medication: None Justification of Continued Inpatient Treatment: Pt is GD unable to utilize the resources available to him. He is unable to provide himself with custodial, clothing, or food.
[2019-02-27] MEDS: lactose-reduced food (Ensure Enlive) - 237ml bottle PO SCH ×3 (08:02→17:20)
[2019-02-27] MEDS: OLANZapine 5mg rapidly disint. tablet PO SCH ×3 (08:02→21:09)
[2019-02-27] MEDS: LORazepam 0.5 MG tablet PO SCH ×4 (08:02→21:08)
--- NOTE | 2019-02-27 09:00 | NUR ---
PATIENT REFUSED VITAL SIGNS Addendum: 02/27/19 at 0900 by Sonia Perdue RN Amended: Links added.
--- NOTE | 2019-02-27 16:00 | NUR ---
NURSING PROGRESS NOTE Legal hold: T-CON Client on involuntary status for GD Report received from ELOY Alexis, with use of SBAR. 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 Per patient's brother, on 12/26 the patient was discharged from a mental health facility and was initially doing well. However, the patient stopped taking his medication and has steadily declined. Assessment What has happened this shift: The patient was asleep at change of shift. He was encouraged to awaken and come to breakfast which he did. He isolates to room mostly but will venture out to ask nurse for what he needs which most times is a perceived need and not an actual need. He is isolative and guarded and has OCD behaviors like taking steps a certain way and picking up water pitcher and putting it down numerous times before taking a drink. Responses have become quicker and patient is cooperative. SI/HI: Denies A/VH: Denies Sleep: Napped ADL's: Needs assistance/prompting Group attendance: no Were Meds taken: Yes Any med S/E: Mental Status Exam Appearance: Thin, unkempt, appropriately dressed for unit in green scrubs Eye contact: Fair Behavior: Guarded, isolative, obsessive/compulsive behavior Speech: Soft, poverty of speech Mood: Dysthymic Affect: Constricted, flat. Thought process: linear, guarded, paranoid, thought blocking Thought Content: Snacks, discharge, water, bookmarks Cognition: Impaired Insight: Impaired. Judgment: Impaired. Interventions PRN's used: None Therapeutic interventions: 1:1 assessment, provided therapeutic communication, redirection from excessive drinking when needed, encouraged to go to groups, educated and encouraged pt to eat meals, medication administration/education/monitoring for compliance, monitor Q15 minutes for safety. Restraints/seclusion/emergency medication: None Justification of Continued Inpatient Treatment: Pt is GD unable to utilize the resources available to him. He is unable to provide himself with senior care, clothing, or food.
[2019-02-27 19:38] VITALS: BP 114/72
[2019-02-27] MEDS: atorvastatin 20mg tablet PO SCH (21:08)
--- NOTE | 2019-02-28 00:30 | NUR ---
Nursing Progress Note Legal hold: TCON Client on involuntary status for GD Report received from ELOY Garrett, with use of SBAR. Why are they here: Patient is a 23 year old male brought in by his brother/chemist assistant, for a mental health evaluation after the patient stopped taking his psychiatric medication, stopped his ADL'S and has not been eating. Per patient's brother, on 12/26 the patient was discharged from a mental health facility and was initially doing well. However, the patient stopped taking his medication and has steadily declined. Assessment What has happened this shift: Pt was in group room sitting at table at shift change. Pt refused vital signs at first, then went back up PCT and stated he was ready for them. Pt was cooperative with 1:1 assessment. Pt is not as talkative with this RN as he was last week. Pt is up for HS snack, then sits in group room and watches T.V. Pt asks several times if his bed can be adjusted. Pt requests a burrito at 2200, explained snack time is at 2000. Pt said "okay" and went back to bed. Pt is currently sleeping with distress noted. SI/HI: None reported or observed. A/VH: None reported or observed. Sleep: Currently sleeping. See sleep assessment notation. ADL's: Needs assistance/prompting Group attendance: shift superintendent caustic cresylate, no group Were Meds taken: Medication compliant Any med S/E: Xerostomia (visible cracked tongue) Mental Status Exam Appearance: Thin, unkempt, appropriately dressed for unit in green scrubs Eye contact: Fair Behavior: Guarded, isolative, obsessive/compulsive behavior Speech: Soft, poverty of speech Mood: Dysthymic Affect: Constricted, flat. Thought process: Linear, guarded, paranoid, thought blocking Thought Content: Snacks, discharge, water Cognition: Impaired Insight: Impaired. Judgment: Impaired. Interventions PRN's used: None Therapeutic interventions: 1:1 assessment, provided therapeutic communication, redirection from excessive drinking when needed, encouraged to go to groups, educated and encouraged pt to eat meals, medication administration/education/monitoring for compliance, monitor Q15 minutes for safety. Restraints/seclusion/emergency medication: None Justification of Continued Inpatient Treatment: Pt is GD unable to utilize the resources available to him. He is unable to provide himself with long-term, clothing, or food.
[2019-02-28 07:57] VITALS: BP 117/78
[2019-02-28] MEDS: lactose-reduced food (Ensure Enlive) - 237ml bottle PO SCH ×3 (08:00→17:32)
[2019-02-28] MEDS: OLANZapine 5mg rapidly disint. tablet PO SCH ×3 (08:20→20:13)
[2019-02-28] MEDS: LORazepam 0.5 MG tablet PO SCH ×4 (08:20→20:13)
--- NOTE | 2019-02-28 13:30 | NUR ---
NURSING PROGRESS NOTE Legal hold: T-CON Client on involuntary status for GD Report received from ELOY Argueta, with use of SBAR. Why are they here: Patient is a 23 year old male brought in by his brother/service learning coordinator, for a mental health evaluation after the patient stopped taking his psychiatric medication, stopped his ADL'S and has not been eating. Per patient's brother, on 12/26 the patient was discharged from a mental health facility and was initially doing well. However, the patient stopped taking his medication and has steadily declined. Assessment What has happened this shift: The patient was asleep at change of shift. He was encouraged to awaken and come to breakfast which he did. He isolates to room mostly but today did interact with others and sit in group room. He is better able now to ask staff for things he needs. He is more direct and making better eye contact. SI/HI: Denies A/VH: Denies Sleep: Napped ADL's: Needs assistance/prompting Group attendance: yes Were Meds taken: Yes Any med S/E: Mental Status Exam Appearance: Thin, unkempt, appropriately dressed for unit in green scrubs Eye contact: Fair Behavior: Guarded, isolative, obsessive/compulsive behavior Speech: Soft, poverty of speech Mood: Dysthymic Affect: Constricted, flat. Thought process: linear, guarded, paranoid, thought blocking Thought Content: Snacks, discharge, water, bookmarks Cognition: Impaired Insight: Impaired. Judgment: Impaired. Interventions PRN's used: None Therapeutic interventions: 1:1 assessment, provided therapeutic communication, redirection from excessive drinking when needed, encouraged to go to groups, educated and encouraged pt to eat meals, medication administration/education/monitoring for compliance, monitor Q15 minutes for safety. Restraints/seclusion/emergency medication: None Justification of Continued Inpatient Treatment: Pt is GD unable to utilize the resources available to him. He is unable to provide himself with [facility], clothing, or food.
[2019-02-28 20:00] VITALS: BP 110/78
[2019-02-28] MEDS: atorvastatin 20mg tablet PO SCH (20:13)
--- NOTE | 2019-03-01 00:36 | NUR ---
Nursing Progress Note Legal hold: TCON Client on involuntary status for GD Report received from ELOY Garrett, with use of SBAR. Why are they here: Patient is a 23 year old male brought in by his brother/shuttle car operator, for a mental health evaluation after the patient stopped taking his psychiatric medication, stopped his ADL'S and has not been eating. Per patient's brother, on 12/26 the patient was discharged from a mental health facility and was initially doing well. However, the patient stopped taking his medication and has steadily declined. Assessment What has happened this shift: Pt was visible on unit at shift change. Pt came up to this commercial loan underwriter and greeted her. Pt produced a small smile when he was high-fived. Pt was medication compliant and cooperative with 1:1 assessment. Pt requested snacks early, but redirected patient to unit rules and times of snacks. Pt went outside with the group for HS snack, pt seems to enjoy time outside. Pt isolats to self, but was seen in group room watching T.V. Pt requested an Ativan, then asks "what does that do." Pt was administered his scheduled Ativan at 1999. SI/HI: None reported or observed. A/VH: None reported or observed. Sleep: Currently sleeping. See sleep assessment notation. ADL's: Needs assistance/prompting Group attendance: fast food shift lead, no group Were Meds taken: Medication compliant Any med S/E: Xerostomia (visible cracked tongue) Mental Status Exam Appearance: Thin, unkempt, appropriately dressed for unit in green scrubs Eye contact: Fair Behavior: Guarded, isolative, obsessive/compulsive behavior Speech: Soft, poverty of speech Mood: Dysthymic Affect: Constricted, flat. Thought process: Linear, guarded, paranoid, thought blocking Thought Content: Snacks, discharge, water Cognition: Impaired Insight: Impaired. Judgment: Impaired. Interventions PRN's used: None Therapeutic interventions: 1:1 assessment, provided therapeutic communication, redirection from excessive drinking when needed, encouraged to go to groups, educated and encouraged pt to eat meals, medication administration/education/monitoring for compliance, monitor Q15 minutes for safety. Restraints/seclusion/emergency medication: None Justification of Continued Inpatient Treatment: Pt is GD unable to utilize the resources available to him. He is unable to provide himself with fci, clothing, or food.
[2019-03-01] MEDS: OLANZapine 5mg rapidly disint. tablet PO SCH ×3 (08:04→20:57)
[2019-03-01] MEDS: LORazepam 0.5 MG tablet PO SCH ×4 (08:04→20:57)
[2019-03-01] MEDS: lactose-reduced food (Ensure Enlive) - 237ml bottle PO SCH ×3 (08:04→17:09)
[2019-03-01 08:31] VITALS: BP 109/68
--- NOTE | 2019-03-01 14:03 | NUR ---
Reassessment: PO intake continues to fluctuate with 25% and 75-100% of meals with 100% PO intake of Ensure Enlive TID meeting nutrient needs. Wt stable since last RD assessment. [facility] 03/01. Will continue to follow. Recommendations: 1) Continue with regular diet 2) Encourage PO intake 3) [place] food preferences 4) Ensure Enlive TID 5) Weekly wt Addendum: 03/01/19 at [address] Amended: Links added.
--- NOTE | 2019-03-01 14:56 | NUR ---
NURSING PROGRESS NOTE Legal hold: T-CON Client on involuntary status for GD Report received from ELOY Weathers with use of SBAR. Why are they here: Patient is a 23 year old male brought in by his brother/snow removal/plowing, for a mental health evaluation after the patient stopped taking his psychiatric medication, stopped his ADL'S and has not been eating. Per patient's brother, on 12/26 the patient was discharged from a mental health facility and was initially doing well. However, the patient stopped taking his medication and has steadily declined. Assessment What has happened this shift: The patient was asleep at change of shift. He was encouraged to awaken and come to breakfast which he did. He isolates to room mostly but today did interact with others and sit in group room. He is better able now to ask staff for things he needs. He is more direct and making better eye contact. He continues to improve today. He went to both groups. He is learning to ask for what he needs in a more direct and effective way. He is med compliant and eating well. SI/HI: Denies A/VH: Denies Sleep: Napped ADL's: Self Group attendance: yes Were Meds taken: Yes Any med S/E: Mental Status Exam Appearance: Neat and clean Eye contact: Fair Behavior: Guarded, isolative, obsessive/compulsive behavior at times Speech: Soft, poverty of speech Mood: Dysthymic Affect: Constricted, flat. Thought process: linear, guarded, paranoid, thought blocking Thought Content: Snacks Cognition: Impaired Insight: Impaired. Judgment: Impaired. Interventions PRN's used: None Therapeutic interventions: 1:1 assessment, provided therapeutic communication, redirection from excessive drinking when needed, encouraged to go to groups, educated and encouraged pt to eat meals, medication administration/education/monitoring for compliance, monitor Q15 minutes for safety. Restraints/seclusion/emergency medication: None Justification of Continued Inpatient Treatment: Pt is GD unable to utilize the resources available to him. He is unable to provide himself with snf, clothing, or food.
[2019-03-01 20:06] VITALS: BP 117/76
[2019-03-01] MEDS: atorvastatin 20mg tablet PO SCH (20:56)
--- NOTE | 2019-03-01 22:39 | NUR ---
DISCHARGE PLANNING: Spoke w/Kayleigh at the [facility] off and she sent packets to 2 [facility] including [facility]. She is hoping to hear something back regarding placement acceptance early next week from [facility]. [facility] Lua, [facility]
--- NOTE | 2019-03-01 22:42 | NUR ---
DISCHARGE PLANNING: Spoke with Kayleigh at [facility] office and she sent out 4 packets to placements they are contracted with- 2 [facility] and 2 [facility]. [facility] in [place] did not not accept him. Herminia Lua, [facility]
--- NOTE | 2019-03-01 23:23 | NUR ---
Nursing Progress Note Legal hold: TCON Client on involuntary status for GD Report received from ELOY Garrett, with use of SBAR. Why are they here: Patient is a 23 year old male brought in by his brother/labor economics teacher, for a mental health evaluation after the patient stopped taking his psychiatric medication, stopped his ADL'S and has not been eating. Per patient's brother, on 12/26 the patient was discharged from a mental health facility and was initially doing well. However, the patient stopped taking his medication and has steadily declined. Assessment What has happened this shift: Pt was visible on unit at shift change. Pt is more engaging with staff and comes up to say hello. Pt only ate his cake for dinner. Pt sits in group room and watches T.V and eats HS snack. Pt is medication compliant. Pt walking in hallway near his room, unable to sleep. Pt refuses any PRN and requests snacks. Talked with patient and joked with him - pt produces smile. He talks about his dad "my dad says it takes courage to man up." Pt does not elaborate. Pt medication compliant. SI/HI: None reported or observed. A/VH: None reported or observed. Sleep: Currently sleeping. See sleep assessment notation. ADL's: Needs assistance/prompting Group attendance: shift production supervisor, no group Were Meds taken: Medication compliant Any med S/E: Xerostomia (getting better) Mental Status Exam Appearance: Thin, unkempt, appropriately dressed for unit in green scrubs Eye contact: Fair Behavior: Guarded, isolative, obsessive/compulsive behavior Speech: Soft, poverty of speech Mood: Dysthymic Affect: Constricted, flat. Thought process: Linear, guarded, paranoid, thought blocking Thought Content: Snacks Cognition: Impaired Insight: Impaired. Judgment: Impaired. Interventions PRN's used: None Therapeutic interventions: 1:1 assessment, provided therapeutic communication, redirection from excessive drinking when needed, encouraged to go to groups, educated and encouraged pt to eat meals, medication administration/education/monitoring for compliance, monitor Q15 minutes for safety. Restraints/seclusion/emergency medication: None Justification of Continued Inpatient Treatment: Pt is GD unable to utilize the resources available to him. He is unable to provide himself with [facility], clothing, or food.
[2019-03-02] MEDS: LORazepam 0.5 MG tablet PO SCH ×4 (07:30→20:30)
[2019-03-02] MEDS: OLANZapine 5mg rapidly disint. tablet PO SCH ×3 (07:30→20:31)
[2019-03-02] MEDS: lactose-reduced food (Ensure Enlive) - 237ml bottle PO SCH ×3 (08:00→18:00)
--- NOTE | 2019-03-02 16:13 | NUR ---
Nursing Progress Note: Jozef Lancaster Legal hold: TCON Client on involuntary status for GD Report received from ELOY Weathers, with use of SBAR. Why are they here: Patient is a 23 year old male brought in by his brother/adobe cq developer, for a mental health evaluation after the patient stopped taking his psychiatric medication, stopped his ADL'S and has not been eating. Per patient's brother, on 12/26 the patient was discharged from a mental health facility and was initially doing well. However, the patient stopped taking his medication and has steadily declined. Assessment What has happened this shift: Pt remained in bed at change of shift. He sat up to take his medications and was pleasant but appeared very fatigued. Requested of this abstract writer to drink his protein drink with his breakfast rather than before which was agreed to. He consumed 100% of ensure. Following breakfast, patient returned to his bed and rested for several hours. When this abstract writer checked on him, he was awake, staring at ceiling, did not respond to questions. Shortly after this encounter, patient was out of room, ambulating in [place], asking for remote to find TV program he could watch. He appears much more alert. Per PCT patient has been taking multiple cups and filling them with water. He has only filled his pitcher twice with PCT or nurse, but has been observed using pitcher from community room to refill his pitcher. Patient is on TCON which will on 03/04 if not renewed or court hearing. SI/HI: None reported or observed. A/VH: None reported or observed. Sleep: 4.75 ADL's: Needs assistance/prompting Group attendance: No Were Meds taken: Medication compliant Any med S/E: Xerostomia (getting better) Mental Status Exam Appearance: Thin, unkempt, appropriately dressed for unit in green scrubs Eye contact: Fair Behavior: Guarded, isolative, obsessive/compulsive behavior Speech: Soft, poverty of speech Mood: Dysthymic Affect: Constricted, flat. Thought process: Linear, guarded, paranoid, thought blocking Thought Content: food, water, TV Cognition: Impaired Insight: Impaired. Judgment: Impaired. Interventions PRN's used: None Therapeutic interventions: 1:1 assessment, provided therapeutic communication, redirection from excessive drinking when needed, encouraged to go to groups, educated and encouraged pt to eat meals, medication administration/education/monitoring for compliance, monitor Q15 minutes for safety. Restraints/seclusion/emergency medication: None Justification of Continued Inpatient Treatment: Pt is GD unable to utilize the resources available to him. He is unable to provide himself with residential, clothing, or food.
[2019-03-02 19:55] VITALS: BP 112/69
[2019-03-02] MEDS: atorvastatin 20mg tablet PO SCH (20:30)
--- NOTE | 2019-03-02 22:06 | NUR ---
Nursing Progress Note: Jozef Lancaster Legal hold: TCON Client on involuntary status for GD Report received from ELOY Garrett, with use of SBAR. Why are they here: Patient is a 23 year old male brought in by his brother/dishwashing machine operator, for a mental health evaluation after the patient stopped taking his psychiatric medication, stopped his ADL'S and has not been eating. Per patient's brother, on 12/26 the patient was discharged from a mental health facility and was initially doing well. However, the patient stopped taking his medication and has steadily declined. Assessment What has happened this shift: Pt was up and pacing the bernard at shift change. He was talketive wit h peers and responded well when asked questions. He sat in the group room amd watghed Tv till snack time then was medication compliant. The amount of asking for water has decreased. Patient is on TCON which will on 03/04 if not renewed or court hearing. SI/HI: None reported or observed. A/VH: None reported or observed. Sleep: 4.75 ADL's: Needs assistance/prompting Group attendance: No Were Meds taken: Medication compliant Any med S/E: Xerostomia (getting better) Mental Status Exam Appearance: Thin, unkempt, appropriately dressed for unit in green scrubs Eye contact: Fair Behavior: Guarded, isolative, obsessive/compulsive behavior Speech: Soft, poverty of speech Mood: Dysthymic Affect: Constricted, flat. Thought process: Linear, guarded, paranoid, thought blocking Thought Content: food, water, TV Cognition: Impaired Insight: Impaired. Judgment: Impaired. Interventions PRN's used: None Therapeutic interventions: 1:1 assessment, provided therapeutic communication, redirection from excessive drinking when needed, encouraged to go to groups, educated and encouraged pt to eat meals, medication administration/education/monitoring for compliance, monitor Q15 minutes for safety. Restraints/seclusion/emergency medication: None Justification of Continued Inpatient Treatment: Pt is GD unable to utilize the resources available to him. He is unable to provide himself with group home, clothing, or food.
[2019-03-03] MEDS: LORazepam 0.5 MG tablet PO SCH ×4 (08:18→20:36)
[2019-03-03] MEDS: OLANZapine 5mg rapidly disint. tablet PO SCH ×3 (08:19→20:36)
[2019-03-03] MEDS: lactose-reduced food (Ensure Enlive) - 237ml bottle PO SCH ×3 (08:21→18:10)
[2019-03-03 08:41] VITALS: BP 107/69
--- NOTE | 2019-03-03 15:13 | NUR ---
Nursing Progress Note: Jozef Lancaster Legal hold: TCON Client on involuntary status for GD Report received from ROSITA Olmos, with use of SBAR. Why are they here: Patient is a 23 year old male brought in by his brother/street superintendent, for a mental health evaluation after the patient stopped taking his psychiatric medication, stopped his ADL'S and has not been eating. Per patient's brother, on 12/26 the patient was discharged from a mental health facility and was initially doing well. However, the patient stopped taking his medication and has steadily declined. Assessment What has happened this shift: Pt in bed at change of shift and up before breakfast. RN speaking to patient in his room. Patient stated he slept well and denied S/I and hallucinations. Patient said he was good. Then patient said "leave." So RN left patient alone. Patient laid down with covers over his head. Patient is more social and interacts a little with peers and staff. Patient went to morning group. After group patient was asking for remote to find TV program he could watch. Patient is on TCON. SI/HI: None reported or observed. A/VH: None reported or observed. Sleep: 4.75 ADL's: Needs assistance/prompting Group attendance: morning group Were Meds taken: Medication compliant Any med S/E: none noted Mental Status Exam Appearance: Thin, messy hair, appropriately dressed for unit in clean green scrubs Eye contact: Fair Behavior: Guarded, isolative, obsessive/compulsive behavior Speech: Soft, poverty of speech Mood: Dysthymic Affect: Constricted, flat. Thought process: Linear, guarded, paranoid, thought blocking Thought Content: food, water, TV Cognition: Impaired Insight: Impaired. Judgment: Impaired. Interventions PRN's used: None Therapeutic interventions: 1:1 assessment, provided therapeutic communication, redirection from excessive drinking when needed, encouraged to go to groups, educated and encouraged pt to eat meals, medication administration/education/monitoring for compliance, monitor Q15 minutes for safety. Restraints/seclusion/emergency medication: None Justification of Continued Inpatient Treatment: Pt is GD unable to utilize the resources available to him. He is unable to provide himself with [facility], clothing, or food.
[2019-03-03] MEDS: atorvastatin 20mg tablet PO SCH (20:36)
[2019-03-03 21:00] VITALS: BP 128/70
--- NOTE | 2019-03-03 23:40 | NUR ---
Nursing Progress Note: Jozef Lancaster Legal hold: TCON Client on involuntary status for GD Report received from Gerry LYONS, with use of SBAR. Why are they here: Patient is a 23 year old male brought in by his brother/estimating engineer, for a mental health evaluation after the patient stopped taking his psychiatric medication, stopped his ADL'S and has not been eating. Per patient's brother, on 12/26 the patient was discharged from a mental health facility and was initially doing well. However, the patient stopped taking his medication and has steadily declined. Assessment What has happened this shift: Pt in bed at change of shift. Team Facilitator speaking to patient in his room. Patient stated he slept feels well and denied S/I and hallucinations. Patient is more social and interacts a little with peers and staff. Patient went to groups. He is more engaging and outgoing. Patient is on TCON. SI/HI: None reported or observed. A/VH: None reported or observed. Sleep: 4.75 ADL's: Needs assistance/prompting Group attendance: morning group Were Meds taken: Medication compliant Any med S/E: none noted Mental Status Exam Appearance: Thin, messy hair, appropriately dressed for unit in clean green scrubs Eye contact: Fair Behavior: Guarded, isolative, obsessive/compulsive behavior Speech: Soft, poverty of speech Mood: Dysthymic Affect: Constricted, flat. Thought process: Linear, guarded, paranoid, thought blocking Thought Content: food, water, TV Cognition: Impaired Insight: Impaired. Judgment: Impaired. Interventions PRN's used: None Therapeutic interventions: 1:1 assessment, provided therapeutic communication, redirection from excessive drinking when needed, encouraged to go to groups, educated and encouraged pt to eat meals, medication administration/education/monitoring for compliance, monitor Q15 minutes for safety. Restraints/seclusion/emergency medication: None Justification of Continued Inpatient Treatment: Pt is GD unable to utilize the resources available to him. He is unable to provide himself with longterm, clothing, or food.
[2019-03-04 08:00] VITALS: BP 100/64
[2019-03-04] MEDS: LORazepam 0.5 MG tablet PO SCH ×4 (08:08→20:33)
[2019-03-04] MEDS: OLANZapine 5mg rapidly disint. tablet PO SCH ×3 (08:08→20:34)
[2019-03-04] MEDS: lactose-reduced food (Ensure Enlive) - 237ml bottle PO SCH ×3 (08:13→18:15)
--- NOTE | 2019-03-04 14:55 | NUR ---
Nursing Progress Note: Jozef Lancaster Legal hold: TCON Client on involuntary status for GD Report received from ROSITA Olmos, with use of SBAR. Why are they here: Patient is a 23 year old male brought in by his brother/soap grinder, for a mental health evaluation after the patient stopped taking his psychiatric medication, stopped his ADL'S and has not been eating. Per patient's brother, on 12/26 the patient was discharged from a mental health facility and was initially doing well. However, the patient stopped taking his medication and has steadily declined. Assessment What has happened this shift: Pt in bed at change of shift and up before breakfast. RN speaking to patient in his room. Patient with short answers. Patient denies depression and a/v hallucinations. Patient makes eye contact and then looks away. Patient does appear more social with staff. Patient is on TCON. SI/HI: None reported or observed. A/VH: None reported or observed. Sleep: Took a couple of naps during the day. ADL's: Needs assistance/prompting Group attendance: none. Were Meds taken: Medication compliant Any med S/E: none noted Mental Status Exam Appearance: Thin, messy hair, appropriately dressed for unit in clean green scrubs Eye contact: Fair Behavior: Guarded, isolative, obsessive/compulsive behavior Speech: Soft, poverty of speech Mood: Dysthymic Affect: Constricted, flat. Thought process: Linear, guarded, paranoid, thought blocking Thought Content: food, water, TV Cognition: Impaired Insight: Impaired. Judgment: Impaired. Interventions PRN's used: None Therapeutic interventions: 1:1 assessment, provided therapeutic communication, redirection from excessive drinking when needed, encouraged to go to groups, educated and encouraged pt to eat meals, medication administration/education/monitoring for compliance, monitor Q15 minutes for safety. Restraints/seclusion/emergency medication: None Justification of Continued Inpatient Treatment: Pt is GD unable to utilize the resources available to him. He is unable to provide himself with [facility]ci, clothing, or food.
[2019-03-04 20:00] VITALS: BP 112/76
--- NOTE | 2019-03-04 21:58 | NUR ---
Nursing Progress Note: Jozef Lancaster Legal hold: TCON Client on involuntary status for GD Report received from ROSITA Olmos, with use of SBAR. Why are they here: Patient is a 23 year old male brought in by his brother/geriatrics physician, for a mental health evaluation after the patient stopped taking his psychiatric medication, stopped his ADL'S and has not been eating. Per patient's brother, on 12/26 the patient was discharged from a mental health facility and was initially doing well. However, the patient stopped taking his medication and has steadily declined. Assessment What has happened this shift: Pt was up at change of shift in group room reading . He engaged with this handbook writer with out prompting. Patient denies depression and a/v hallucinations. Patient makes eye contact and then looks away. Patient does appear more social with staff. Patient is on TCON. SI/HI: None reported or observed. A/VH: None reported or observed. Sleep: Took a couple of naps during the day. ADL's: Needs assistance/prompting Group attendance: none. Were Meds taken: Medication compliant Any med S/E: none noted Mental Status Exam Appearance: Thin, messy hair, appropriately dressed for unit in clean green scrubs Eye contact: Fair Behavior: Guarded, isolative, obsessive/compulsive behavior Speech: Soft, poverty of speech Mood: Dysthymic Affect: Constricted, flat. Thought process: Linear, guarded, paranoid, thought blocking Thought Content: food, water, TV Cognition: Impaired Insight: Impaired. Judgment: Impaired. Interventions PRN's used: None Therapeutic interventions: 1:1 assessment, provided therapeutic communication, redirection from excessive drinking when needed, encouraged to go to groups, educated and encouraged pt to eat meals, medication administration/education/monitoring for compliance, monitor Q15 minutes for safety. Restraints/seclusion/emergency medication: None Justification of Continued Inpatient Treatment: Pt is GD unable to utilize the resources available to him. He is unable to provide himself with detention, clothing, or food.
[2019-03-05 07:39] VITALS: BP 93/58
[2019-03-05] MEDS: LORazepam 0.5 MG tablet PO SCH ×3 (08:09→20:13)
[2019-03-05] MEDS: OLANZapine 5mg rapidly disint. tablet PO SCH ×3 (08:09→20:13)
[2019-03-05] MEDS: lactose-reduced food (Ensure Enlive) - 237ml bottle PO SCH ×4 (08:16→19:43)
--- NOTE | 2019-03-05 11:18 | NUR ---
Reassessment: No significant changes in PO intake. Pt continues with 75-100% PO intake of ONS and 75-100% PO intake of meals with occasional 25%, meeting nutrient needs. Wt stable since last RD assessment. [facility] 03/03. Will continue to follow. Recommendations: 1) Continue with regular diet 2) Encourage PO intake 3) [place] food preferences 4) Ensure Enlive TID 5) Weekly wt Addendum: 03/05/19 at [address] Amended: Links added.
--- NOTE | 2019-03-05 16:23 | NUR ---
Nursing Progress Note: Jozef Lancaster Legal hold: TCON Client on involuntary status for GD Report received from Lalita LYONS, with use of SBAR. Why are they here: Patient is a 23 year old male brought in by his brother/masonry supervisor, for a mental health evaluation after the patient stopped taking his psychiatric medication, stopped his ADL'S and has not been eating. Per patient's brother, on 12/26 the patient was discharged from a mental health facility and was initially doing well. However, the patient stopped taking his medication and has steadily declined. Assessment What has happened this shift: Pt sleeping at change of shift. He was pleasant and took his medications willingly. Patient denies depression and a/v hallucinations. Reports he had a BM the day before yesterday. Patient makes eye contact and then quickly looks away. Patient has water pitcher in his room, does not appear to be abusing water as he has been in recent past. No other concerns voiced at this time. SI/HI: None reported or observed. A/VH: None reported or observed. Sleep: 5.0hrs NOC ADL's: Needs assistance/prompting Group attendance: None Were Meds taken: Medication compliant Any med S/E: none noted or observed Mental Status Exam Appearance: Thin, messy hair, Clean green scrubs Eye contact: Shifty Behavior: Guarded, isolative, obsessive/compulsive behavior Speech: Soft, poverty of speech Mood: Dysthymic Affect: Constricted, flat. Thought process: Linear, guarded, paranoid, thought blocking Thought Content: unable to formally assess Cognition: Impaired Insight: Impaired Judgment: Impaired Interventions PRN's used: None Therapeutic interventions: 1:1 assessment, provided therapeutic communication, redirection from excessive drinking when needed, encouraged to go to groups, educated and encouraged pt to eat meals, medication administration/education/monitoring for compliance, monitor Q15 minutes for safety. Restraints/seclusion/emergency medication: None Justification of Continued Inpatient Treatment: Pt is GD unable to utilize the resources available to him. He is unable to provide himself with long-term, clothing, or food.
[2019-03-05 19:28] VITALS: BP 110/69
--- NOTE | 2019-03-05 21:03 | NUR ---
Nursing Progress Note: Jozef Lancaster Legal hold: TCON Client on involuntary status for GD Report received from Major LYONS, with use of SBAR. Why are they here: Patient is a 23 year old male brought in by his brother/janitorial account manager, for a mental health evaluation after the patient stopped taking his psychiatric medication, stopped his ADL'S and has not been eating. Per patient's brother, on 12/26 the patient was discharged from a mental health facility and was initially doing well. However, the patient stopped taking his medication and has steadily declined. Assessment What has happened this shift: Pt was in the hallway at change of shift, asking about seeing his chart. 1:1 assessment completed at bedside. He explains that he thought he was only on a 14 day hold. Explained to pt that he is temporarily conserved according to court documents in the chart. Pt seems to understand this but then asks about when he will be placed. Explained to pt that [facility] is working on placement and we are still waiting to hear. Pt states he understands that he has to cooperate with the program before he can be placed and he states "I am cooperating." Acknowledged that patient has been indeed cooperating but explained it will still take time. Pt is feeling bored and discouraged. States he attended groups today and "self talk" and 'talking with someone" are good coping skills for him but he wasn't able to identify a time/situation where he would use a coping skill. Asked Pt then states he likes to read "hardcover books" to help with boredom. Assisted pt in selecting a hard cover book on the unit. Pt reports his sleep is "confusing, because sometimes I have nightmares at night." Pt states he ate "enough" dinner but nutrition slip shows he only ate his protein shake. Pt explains "sometimes I dont feel like eating at dinner but I get hungry later at night." Pt is hopeful that he will move soon to a "recreational mental health unit." Pt states "being in here feels confusing, but I know anywhere else I go to I won't feel confused anymore, so I don't want to stay here any longer than I have to." SI/HI: None reported or observed. A/VH: None reported or observed. Sleep: pt reports nightmares ADL's: Needs assistance/prompting Group attendance: No evening groups Were Meds taken: Medication compliant Any med S/E: none noted or observed Mental Status Exam Appearance: Thin, messy hair, Clean green scrubs Eye contact: Shifty Behavior: Guarded, isolative, obsessive/compulsive behavior Speech: Soft, poverty of speech Mood: Dysthymic Affect: Constricted, flat. Thought process: Linear, guarded, paranoid, thought blocking Thought Content: pt is asking about when he will get placement. He conveys that he is feeling anxious to get into a more permanent situations. "I want to get where I'm going." Cognition: Impaired Insight: poor Judgment: poor Interventions PRN's used: None Therapeutic interventions: 1:1 assessment, provided therapeutic communication, redirection from excessive drinking when needed, encouraged to go to groups, educated and encouraged pt to eat meals, medication administration/education/monitoring for compliance, monitor Q15 minutes for safety. Restraints/seclusion/emergency medication: None Justification of Continued Inpatient Treatment: Pt is GD unable to utilize the resources available to him. He is unable to provide himself with care home, clothing, or food.
[2019-03-06 07:42] VITALS: BP 101/68
[2019-03-06] MEDS: LORazepam 0.5 MG tablet PO SCH ×3 (07:46→20:21)
[2019-03-06] MEDS: OLANZapine 5mg rapidly disint. tablet PO SCH ×3 (07:46→20:21)
[2019-03-06] MEDS: lactose-reduced food (Ensure Enlive) - 237ml bottle PO SCH ×2 (13:06→18:00)
--- NOTE | 2019-03-06 16:41 | NUR ---
Nursing Progress Note: Jozef Lancaster Legal hold: TCON Client on involuntary status for GD Report received from Adriana LYONS, with use of SBAR. Why are they here: Patient is a 23 year old male brought in by his brother/tool programmer, for a mental health evaluation after the patient stopped taking his psychiatric medication, stopped his ADL'S and has not been eating. Per patient's brother, on 12/26 the patient was discharged from a mental health facility and was initially doing well. However, the patient stopped taking his medication and has steadily declined. Assessment What has happened this shift: Pt sleeping at change of shift. He was pleasant and took his medications willingly. Patient denies depression and a/v hallucinations. Pt concerned about getting his shake with his meal instead of before hand. He is very pleasant and polite today. Patient continues to have shifty eye contact and answers questions quickly with short answers, often changing his mind repeatedly in a compulsive manner. Patient has water pitcher in his room, does not appear to be abusing water as he has been in recent past. No other concerns voiced at this time. SI/HI: None reported or observed. A/VH: None reported or observed. Sleep: 6.75 hrs NOC ADL's: Needs assistance/prompting Group attendance: None Were Meds taken: Medication compliant Any med S/E: none noted or observed Mental Status Exam Appearance: Thin, messy hair, Clean green scrubs Eye contact: Shifty Behavior: Guarded, isolative, obsessive/compulsive behavior Speech: Soft, poverty of speech Mood: Dysthymic Affect: Constricted, flat. Thought process: Linear, guarded, paranoid, thought blocking Thought Content: unable to formally assess Cognition: Impaired Insight: Impaired Judgment: Impaired Interventions PRN's used: None Therapeutic interventions: 1:1 assessment, provided therapeutic communication, redirection from excessive drinking when needed, encouraged to go to groups, educated and encouraged pt to eat meals, medication administration/education/monitoring for compliance, monitor Q15 minutes for safety. Restraints/seclusion/emergency medication: None Justification of Continued Inpatient Treatment: Pt is GD unable to utilize the resources available to him. He is unable to provide himself with halfway, clothing, or food.
[2019-03-06 20:00] VITALS: BP 105/77
--- NOTE | 2019-03-06 22:18 | NUR ---
Nursing Progress Note: Legal hold: TCON Client on involuntary status for GD Report received from Major LYONS, with use of SBAR. Why are they here: Patient is a 23 year old male brought in by his brother/manager forensic, for a mental health evaluation after the patient stopped taking his psychiatric medication, stopped his ADL'S and has not been eating. Per patient's brother, on 12/26 the patient was discharged from a mental health facility and was initially doing well. However, the patient stopped taking his medication and has steadily declined. Assessment What has happened this shift: Pt was in the hallway at change of shift. Pt comes up to RN and says marco antonio, asks how my day is. Pt is cooperative with 1:1 assessment- meets RN in room and sits on bed. Pt is medication compliant, asked for Ativan. Ativan was administered at scheduled time with other HS meds. Pt is focused on his discharge "I want to get out of here." "I shouldn't be here." Pt engages with staff for short periods, pt has a bright affect and has more occasional smiles during conversation. Pt is making needs known to staff. Pt denies having trouble sleeping and refuses any sleep aid. SI/HI: None reported or observed. A/VH: None reported or observed. Sleep: See sleep assessment notation ADL's: Needs assistance/prompting Group attendance: No evening groups Were Meds taken: Medication compliant Any med S/E: None noted or observed Mental Status Exam Appearance: Thin, messy hair, Clean green scrubs Eye contact: Intermittent, getting better Behavior: Guarded, isolative, obsessive/compulsive behavior Speech: Soft, poverty of speech Mood: Dysthymic Affect: Constricted, flat. Thought process: Linear, guarded, thought blocking Thought Content: Pt focused on discharge "I want out of here." "I shouldn't be here." Cognition: Impaired Insight: Poor Judgment: Poor Interventions PRN's used: None Therapeutic interventions: 1:1 assessment, provided therapeutic communication, redirection from excessive drinking when needed, encouraged to go to groups, educated and encouraged pt to eat meals, medication administration/education/monitoring for compliance, monitor Q15 minutes for safety. Restraints/seclusion/emergency medication: None Justification of Continued Inpatient Treatment: Pt is GD unable to utilize the resources available to him. He is unable to provide himself with [facility], clothing, or food.
[2019-03-07 08:00] VITALS: BP 92/54
[2019-03-07] MEDS: OLANZapine 5mg rapidly disint. tablet PO SCH ×3 (08:00→21:38)
[2019-03-07] MEDS: LORazepam 0.5 MG tablet PO SCH ×3 (08:32→21:38)
[2019-03-07] MEDS: lactose-reduced food (Ensure Enlive) - 237ml bottle PO SCH ×3 (08:33→18:00)
--- NOTE | 2019-03-07 16:09 | NUR ---
NURSING PROGRESS NOTE Legal hold: TCON Client on involuntary status for GD Report received from ELOY Argueta, with use of SBAR. Why are they here: Patient is a 23 year old male brought in by his brother/plugging machine operator, for a mental health evaluation after the patient stopped taking his psychiatric medication, stopped his ADL'S and has not been eating. Per patient's brother, on 12/26 the patient was discharged from a mental health facility and was initially doing well. However, the patient stopped taking his medication and has steadily declined. Assessment What has happened this shift: The patient was asleep at change of shift. He did get up for breakfast but ate very little. He later asked if the Ensure which comes on his trays could be discontinued stating he just didn't want it anymore. The information resources director was called and she consulted with the patient today. It was decided if he eats 70% of his trays he can keep the Ensure to consume between meals if hungry. If he eats less than 70% he will drink the Ensure to get proper nutrition. The patient agreed to this. The patient is brightening and was seen smiling at times today. SI/HI: None reported or observed. A/VH: None reported or observed. Sleep: Naps ADL's: Needs assistance/prompting Group attendance: Yes Were Meds taken: Medication compliant Any med S/E: None noted or observed Mental Status Exam Appearance: Thin, messy hair, Clean green scrubs Eye contact: Intermittent, getting better Behavior: Guarded, isolative, obsessive/compulsive behavior Speech: Soft, poverty of speech Mood: Dysthymic Affect: Constricted, flat. Thought process: Linear, guarded, thought blocking Thought Content: Pt focused on Ensure and eating Cognition: Impaired Insight: Poor Judgment: Poor Interventions PRN's used: None Therapeutic interventions: 1:1 assessment, provided therapeutic communication, redirection from excessive drinking when needed, encouraged to go to groups, educated and encouraged pt to eat meals, medication administration/education/monitoring for compliance, monitor Q15 minutes for safety. Restraints/seclusion/emergency medication: None Justification of Continued Inpatient Treatment: Pt is GD unable to utilize the resources available to him. He is unable to provide himself with half-way, clothing, or food.
[2019-03-07 20:00] VITALS: BP 109/77
--- NOTE | 2019-03-08 00:10 | NUR ---
Nursing Progress Note: Legal hold: TCON Client on involuntary status for GD Report received from Major LYONS, with use of SBAR. Why are they here: Patient is a 23 year old male brought in by his brother/director of medical review, for a mental health evaluation after the patient stopped taking his psychiatric medication, stopped his ADL'S and has not been eating. Per patient's brother, on 12/26 the patient was discharged from a mental health facility and was initially doing well. However, the patient stopped taking his medication and has steadily declined. Assessment What has happened this shift: Pt was coming out of his room at shift change. When asked how he was pt responds "just doing my thing", "just hanging out." Pt continues to group room to watch T.V. Pt continues to isolate to self, but is more engaging with staff, with occasional smiles. Pt refused his dinner, but did eat at scheduled snack time. Pt states "I don't like the food", when asked why he wasn't eating his meals. Pt was a little restless at bedtime and asked to have his bed adjusted up and down several times. Pt refused a sleep aid. Pt is currently sleeping with no acute distress noted. SI/HI: None reported or observed. A/VH: None reported or observed. Sleep: See sleep assessment notation ADL's: Needs assistance/prompting Group attendance: No evening groups Were Meds taken: Medication compliant Any med S/E: None noted or observed Mental Status Exam Appearance: Thin, messy hair, Clean green scrubs Eye contact: Intermittent, getting better Behavior: Guarded, isolative, obsessive/compulsive behavior Speech: Soft, poverty of speech Mood: Dysthymic Affect: Constricted, flat. Thought process: Guarded, thought blocking Thought Content: Wanting bed adjusted Cognition: Impaired Insight: Poor Judgment: Poor Interventions PRN's used: None Therapeutic interventions: 1:1 assessment, provided therapeutic communication, redirection from excessive drinking when needed, encouraged to go to groups, educated and encouraged pt to eat meals, medication administration/education/monitoring for compliance, monitor Q15 minutes for safety. Restraints/seclusion/emergency medication: None Justification of Continued Inpatient Treatment: Pt is GD unable to utilize the resources available to him. He is unable to provide himself with [facility], clothing, or food.
[2019-03-08 07:39] VITALS: BP 92/56
[2019-03-08] MEDS: LORazepam 0.5 MG tablet PO SCH ×3 (07:52→20:46)
[2019-03-08] MEDS: OLANZapine 5mg rapidly disint. tablet PO SCH ×3 (07:52→20:47)
[2019-03-08] MEDS: lactose-reduced food (Ensure Enlive) - 237ml bottle PO SCH ×3 (08:00→18:00)
--- NOTE | 2019-03-08 16:57 | NUR ---
NURSING PROGRESS NOTE Legal hold: TCON Client on involuntary status for GD Report received from ELOY Weathers, with use of SBAR. Why are they here: Patient is a 23 year old male brought in by his brother/mulcher operator, for a mental health evaluation after the patient stopped taking his psychiatric medication, stopped his ADL'S and has not been eating. Per patient's brother, on 12/26 the patient was discharged from a mental health facility and was initially doing well. However, the patient stopped taking his medication and has steadily declined. Assessment What has happened this shift: The patient was asleep at change of shift. Encouraged to get up for breakfast which he did. He agreed yesterday with the agricultural consultant if he did not eat 70% of his tray then he would drink the Ensure, if he ate more than 70% of his tray he did not have to drink the Ensure. The patient initiated these changes and discussed and agreed to this plan with the agricultural consultant and this nurse. He only ate the muffin on his tray but refused to drink the Ensure. He was told the the agreement was voided since he did not keep his end of the bargain. At lunch he was given his Ensure first, he drank it and then was given his tray which he at 100%. SI/HI: None reported or observed. A/VH: None reported or observed. Sleep: Naps ADL's: Needs assistance/prompting Group attendance: Yes Were Meds taken: Medication compliant Any med S/E: None noted or observed Mental Status Exam Appearance: Thin, messy hair, Clean green scrubs Eye contact: Intermittent, getting better Behavior: Guarded, isolative, obsessive/compulsive behavior Speech: Soft, poverty of speech Mood: Dysthymic Affect: Constricted, flat. Thought process: Linear, guarded, thought blocking Thought Content: Pt focused on Ensure and eating Cognition: Impaired Insight: Poor Judgment: Poor Interventions PRN's used: None Therapeutic interventions: 1:1 assessment, provided therapeutic communication, redirection from excessive drinking when needed, encouraged to go to groups, educated and encouraged pt to eat meals, medication administration/education/monitoring for compliance, monitor Q15 minutes for safety. Restraints/seclusion/emergency medication: None Justification of Continued Inpatient Treatment: Pt is GD unable to utilize the resources available to him. He is unable to provide himself with prison, clothing, or food.
[2019-03-08 20:00] VITALS: BP 117/71
--- NOTE | 2019-03-09 00:31 | NUR ---
Nursing Progress Note: Legal hold: TCON Client on involuntary status for GD Report received from Sho LYNOS, with use of SBAR. Why are they here: Patient is a 23 year old male brought in by his brother/corporate aircraft mechanic, for a mental health evaluation after the patient stopped taking his psychiatric medication, stopped his ADL'S and has not been eating. Per patient's brother, on 12/26 the patient was discharged from a mental health facility and was initially doing well. However, the patient stopped taking his medication and has steadily declined. Assessment What has happened this shift: Patient was in group room at shift change. Pt responds to RN a constricted smile and hello. Again he states "I am just doin my thing." Pt receives a phone call from his brother and is observed him asking "can you come and get me," "when can I get out of here." Conversation seemed to go well. Good bye "I love you." Pt medication compliant and 1:1 assessment. Pt states his brother works in construction. 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 Pt states he misses his brother and hopes he comes to visit. SI/HI: None reported or observed. A/VH: None reported or observed. Sleep: See sleep assessment notation ADL's: Needs assistance/prompting Group attendance: No evening groups Were Meds taken: Medication compliant Any med S/E: None noted or observed Mental Status Exam Appearance: Thin, messy hair, Clean green scrubs Eye contact: Intermittent, getting better Behavior: Guarded, isolative, obsessive/compulsive behavior Speech: Soft, poverty of speech Mood: Dysthymic Affect: Constricted, flat. Thought process: Guarded, thought blocking Thought Content: Wanting more snacks Cognition: Impaired Insight: Poor Judgment: Poor Interventions PRN's used: None Therapeutic interventions: 1:1 assessment, provided therapeutic communication, redirection from excessive drinking when needed, encouraged to go to groups, educated and encouraged pt to eat meals, medication administration/education/monitoring for compliance, monitor Q15 minutes for safety. Restraints/seclusion/emergency medication: None Justification of Continued Inpatient Treatment: Pt is GD unable to utilize the resources available to him. He is unable to provide himself with [facility], clothing, or food.
[2019-03-09 07:38] VITALS: BP 106/68
[2019-03-09] MEDS: LORazepam 0.5 MG tablet PO SCH ×3 (08:38→20:28)
[2019-03-09] MEDS: OLANZapine 5mg rapidly disint. tablet PO SCH ×3 (08:38→20:28)
[2019-03-09] MEDS: lactose-reduced food (Ensure Enlive) - 237ml bottle PO SCH ×3 (08:39→18:00)
--- NOTE | 2019-03-09 11:38 | NUR ---
F/u: RN contacted [facility]; pt would like change back to vanilla/chocolate ensures instead of all vanilla; dietary notified. Addendum: 03/09/19 at [address] Amended: Links added.
--- NOTE | 2019-03-09 15:26 | NUR ---
NURSING PROGRESS NOTE Legal hold: TCON Client on involuntary status for GD Report received from ELOY Argueta, with use of SBAR. Why are they here: Patient is a 23 year old male brought in by his brother/magisterial district judge, for a mental health evaluation after the patient stopped taking his psychiatric medication, stopped his ADL'S and has not been eating. Per patient's brother, on 12/26 the patient was discharged from a mental health facility and was initially doing well. However, the patient stopped taking his medication and has steadily declined. Assessment What has happened this shift: The patient was asleep at change of shift. He was gently wakened to inform him of breakfast and stated "Okay. Yes. Leave." Ate the majority of his meal at breakfast. Came to staff to ask that he be given a variety of flavored protein drinks for his meals versus vanilla. Dietary called and this change was made. Out of his room for majority of shift, sitting in day room staring at the tv or present during groups. Moments of animation noted during staff interaction. Laughed with Charge Nurse Sho during their conversation. Made multiple appropriate comments when engaged with staff. Asked if he ever received visitors. Patient stated "no." When asked if had a way to make contact with his mother patient stated "Yes. No. She's on the streets." Avoided answering the whereabouts of his father. Takes medication without event. Noted improvement in ability to relax around staff. SI/HI: "No." A/VH: "No." Sleep: None this shift ADL's: Needs assistance/prompting Group attendance: Yes Were Meds taken: Medication compliant Any med S/E: None reported or observed Mental Status Exam Appearance: Thin, messy hair, Clean green scrubs Eye contact: Intermittent, getting better Behavior: Guarded, isolative, obsessive/compulsive behavior Speech: Soft, poverty of speech, clipped Mood: Dysthymic Affect: Constricted, flat. Thought process: Linear, guarded, thought blocking Thought Content: Pt focused on Ensure and eating Cognition: Impaired Insight: Poor Judgment: Poor Interventions PRN's used: None Therapeutic interventions: 1:1 assessment, provided therapeutic communication, redirection from excessive drinking when needed, encouraged to go to groups, educated and encouraged pt to eat meals, medication administration/education/monitoring for compliance, monitor Q15 minutes for safety. Restraints/seclusion/emergency medication: None Justification of Continued Inpatient Treatment: Pt is GD unable to utilize the resources available to him. He is unable to provide himself with group home, clothing, or food.
[2019-03-09 19:19] VITALS: BP 99/63
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
[2019-03-10 07:34] VITALS: BP 104/65
[2019-03-10] MEDS: OLANZapine 5mg rapidly disint. tablet PO SCH ×3 (07:57→21:09)
[2019-03-10] MEDS: LORazepam 0.5 MG tablet PO SCH ×3 (07:57→21:09)
[2019-03-10] MEDS: lactose-reduced food (Ensure Enlive) - 237ml bottle PO SCH ×3 (07:59→18:00)
--- NOTE | 2019-03-10 14:00 | NUR ---
Reassessment: No significant changes in PO intake. Pt continues with 75-100% PO intake of ONS and 75-100% PO intake of meals and often refusals and 25-49% intake of meals, meeting nutrient needs. Met with patient to encourage PO intake and encourage that if he does not eat more than 70% of his meal he would benefit from drinking the Ensure to help meet his nutrition needs. Wt stable since last RD assessment. LBM 03/10. Will continue to follow. Recommendations: 1) Continue with regular diet 2) Encourage PO intake 3) [place] food preferences 4) vanilla/chocolate Ensure Enlive TID 5) Weekly wt Addendum: 03/10/19 at [address] Amended: Links added.
--- NOTE | 2019-03-10 15:42 | NUR ---
NURSING PROGRESS NOTE Legal hold: TCON Client on involuntary status for GD Report received from ELOY Wright, with use of SBAR. Why are they here: Patient is a 23 year old male brought in by his brother/hall cleaner, for a mental health evaluation after the patient stopped taking his psychiatric medication, stopped his ADL'S and has not been eating. Per patient's brother, on 12/26 the patient was discharged from a mental health facility and was initially doing well. However, the patient stopped taking his medication and has steadily declined. Assessment What has happened this shift: The patient was asleep at change of shift had to be awakened and encouraged to come to breakfast. The patietn is asking multiple staff members to change things about his diet and Ensure drinks. He is still trying to manipulate the manner in which he takes his medications and needs to be watched for cheeking. He isolated and naps during the day but is attending groups. He is brighter with moments of smiling. SI/HI: "No." A/VH: "No." Sleep: Naps ADL's: Needs assistance/prompting Group attendance: Yes Were Meds taken: Medication compliant Any med S/E: None reported or observed Mental Status Exam Appearance: Thin, messy hair, Clean green scrubs Eye contact: Intermittent, getting better Behavior: Guarded, isolative, obsessive/compulsive behavior Speech: Soft, poverty of speech, clipped Mood: Dysthymic Affect: Constricted, flat. Thought process: Linear, guarded, thought blocking Thought Content: Pt focused on Ensure and eating Cognition: Impaired Insight: Poor Judgment: Poor Interventions PRN's used: None Therapeutic interventions: 1:1 assessment, provided therapeutic communication, redirection from excessive drinking when needed, encouraged to go to groups, educated and encouraged pt to eat meals, medication administration/education/monitoring for compliance, monitor Q15 minutes for safety. Restraints/seclusion/emergency medication: None Justification of Continued Inpatient Treatment: Pt is GD unable to utilize the resources available to him. He is unable to provide himself with fci, clothing, or food.
[2019-03-10 20:03] VITALS: BP 117/77
--- NOTE | 2019-03-11 02:16 | NUR ---
Nursing Progress Note: Legal hold: TCON Client on involuntary status for GD Report received from ELOY Berkowitz, with use of SBAR. Why are they here: Patient is a 23 year old male brought in by his brother/sagger maker, for a mental health evaluation after the patient stopped taking his psychiatric medication, stopped his ADL'S and has not been eating. Per patient's brother, on 12/26 the patient was discharged from a mental health facility and was initially doing well. However, the patient stopped taking his medication and has steadily declined. Assessment What has happened this shift: The patient was seen on the unit at shift change. He agrees to 1:1 in his room, but refuses physical assessment. The patient appears anxious tonight, going from nurse to nurse asking for different things like juices and burritos. It was later found that the patient was hoarding things in his room on the shelves. The patient spent the evening bouncing around the unit asking for random stuff. He had a hard time settling down, but was compliant with medications. SI/HI: Denies A/VH: Denies Sleep: See sleep hours ADL's: Needs assistance/prompting Group attendance: Yes Were Meds taken: Medication compliant Any med S/E: None reported or observed Mental Status Exam Appearance: Thin, messy hair, Clean green scrubs, with dark jacket. Eye contact: Sometimes, but does not hold. Behavior: Guarded, isolative, obsessive/compulsive behavior. Speech: Pressured, latent responses. Mood: Anxious Affect: Constricted, flat. Thought process: Disorganized, guarded, thought blocking Thought Content: Preoccupied with getting "things" Cognition: Impaired Insight: Poor Judgment: Poor Interventions PRN's used: None Therapeutic interventions: 1:1 assessment, provided therapeutic communication, redirection from excessive drinking when needed, encouraged to go to groups, educated and encouraged pt to eat meals, medication administration/education/monitoring for compliance, monitor Q15 minutes for safety. Restraints/seclusion/emergency medication: None Justification of Continued Inpatient Treatment: Pt is GD unable to utilize the resources available to him. He is unable to provide himself with senior care, clothing, or food.
[2019-03-11 07:27] VITALS: BP 94/67
[2019-03-11] MEDS: lactose-reduced food (Ensure Enlive) - 237ml bottle PO SCH ×3 (08:00→17:42)
[2019-03-11] MEDS: LORazepam 0.5 MG tablet PO SCH ×3 (08:02→20:40)
[2019-03-11] MEDS: OLANZapine 5mg rapidly disint. tablet PO SCH ×3 (08:02→20:40)
--- NOTE | 2019-03-11 12:50 | NUR ---
The patient is off the unit. He was transported to a court hearing by the [facility].
--- NOTE | 2019-03-11 14:45 | NUR ---
The patient is back on the unit from court visit.
[2019-03-11] MEDS ORDERED: TRAZ-251 PO (15:02)
[2019-03-11] MEDS ORDERED: OLAN10TA19 PO (15:02)
--- NOTE | 2019-03-11 15:14 | NUR ---
DISCHARGE PLANNING: SW received TC from [facility], who report pt has been accepted to [facility]. SW contacted [facility] to inform them pt does not have clothing of his own at this time. SW provided approximate sizes of pt. Ruth Stockton, Cyber Security Systems Engineer BUSINESS EDUCATION PROFESSOR [id number] Supervised by Delonte Cabrera, [id number]
--- NOTE | 2019-03-11 16:03 | NUR ---
NURSING PROGRESS NOTE Legal hold: TCON Client on involuntary status for GD Report received from ELOY Wright, with use of SBAR. Why are they here: Patient is a 23 year old male brought in by his brother/family intervention specialist, for a mental health evaluation after the patient stopped taking his psychiatric medication, stopped his ADL'S and has not been eating. Per patient's brother, on 12/26 the patient was discharged from a mental health facility and was initially doing well. However, the patient stopped taking his medication and has steadily declined. Assessment What has happened this shift: The patient was asleep at change of shift and had to be vigorously roused for breakfast. he did get up to eat and took his medications. He then went back to sleep for most of morning. No changes to mood or behaviors. Went to Court Hearing today for conservatorship. Discharging on at 0900 to [facility]. The patient is happy and looking forward to going. SI/HI: "No." A/VH: "No." Sleep: Naps ADL's: Needs assistance/prompting Group attendance: Yes Were Meds taken: Medication compliant Any med S/E: None reported or observed Mental Status Exam Appearance: Thin, clean, dressed in street clothes. Eye contact: Good Behavior: Guarded Speech: Soft, poverty of speech, clipped Mood: Dysthymic Affect: Constricted, flat. Thought process: Linear, guarded, thought blocking Thought Content: Pt focused on discharge Cognition: Impaired Insight: Poor Judgment: Poor Interventions PRN's used: None Therapeutic interventions: 1:1 assessment, provided therapeutic communication, redirection from excessive drinking when needed, encouraged to go to groups, educated and encouraged pt to eat meals, medication administration/education/monitoring for compliance, monitor Q15 minutes for safety. Restraints/seclusion/emergency medication: None Justification of Continued Inpatient Treatment: Pt is GD unable to utilize the resources available to him. He is unable to provide himself with custodial, clothing, or food.
[2019-03-11 19:29] VITALS: BP 105/72
--- NOTE | 2019-03-11 23:15 | NUR ---
Nursing Progress Note: Legal hold: TCON Client on involuntary status for GD Report received from ELOY Berkowitz, with use of SBAR. Why are they here: Patient is a 23 year old male brought in by his brother/criminal justice social worker, for a mental health evaluation after the patient stopped taking his psychiatric medication, stopped his ADL'S and has not been eating. Per patient's brother, on 12/26 the patient was discharged from a mental health facility and was initially doing well. However, the patient stopped taking his medication and has steadily declined. Assessment What has happened this shift: The patient was seen on the unit. He just moves around without purpose. He refused physical assessment, but agreed to 1:1. The patient didn't talk about his hearing today, just that he is going to [facility]. He reports that he will be happy to go there. The patient did much the same as last night, wandering around asking random people to provide snacks for him. The patient is irritated that he's not being allowed to librado food, but he's easily redirected. He readily took his medication, then went to bed. SI/HI: Denies A/VH: Denies Sleep: See sleep hours ADL's: Needs assistance/prompting Group attendance: Yes Were Meds taken: Medication compliant Any med S/E: None reported or observed Mental Status Exam Appearance: Thin, messy hair, Clean green scrubs, with dark jacket. Eye contact: Avoids. Behavior: Guarded, obsessive/compulsive behavior. Speech: Pressured, latent responses. Mood: Anxious Affect: Constricted, flat. Thought process: Disorganized, guarded, thought blocking Thought Content: Preoccupied with getting "things" Cognition: Impaired Insight: Poor Judgment: Poor Interventions PRN's used: None Therapeutic interventions: 1:1 assessment, provided therapeutic communication, redirection from excessive drinking when needed, encouraged to go to groups, educated and encouraged pt to eat meals, medication administration/education/monitoring for compliance, monitor Q15 minutes for safety. Restraints/seclusion/emergency medication: None Justification of Continued Inpatient Treatment: Pt is GD unable to utilize the resources available to him. He is unable to provide himself with mcc, clothing, or food.
[2019-03-12 07:50] VITALS: BP 93/65
[2019-03-12] MEDS: LORazepam 0.5 MG tablet PO SCH ×3 (08:02→20:39)
[2019-03-12] MEDS: OLANZapine 5mg rapidly disint. tablet PO SCH ×3 (08:02→20:39)
[2019-03-12] MEDS: lactose-reduced food (Ensure Enlive) - 237ml bottle PO SCH ×3 (08:04→18:00)
--- NOTE | 2019-03-12 15:38 | NUR ---
NURSING PROGRESS NOTE Legal hold: TCON Client on involuntary status for GD Report received from ELOY Hdz, with use of SBAR. Why are they here: Patient is a 23 year old male brought in by his brother/precinct police sergeant, for a mental health evaluation after the patient stopped taking his psychiatric medication, stopped his ADL'S and has not been eating. Per patient's brother, on 12/26 the patient was discharged from a mental health facility and was initially doing well. However, the patient stopped taking his medication and has steadily declined. Assessment What has happened this shift: The patient was asleep at change of shift and had to be vigorously roused for breakfast. He did get up to eat and took his medications. He then went back to sleep for some of morning. No changes to mood or behaviors. More animated today and smiling some. He is excited about leaving tomorrow. He is medication complaint and pleasant. He took a shower and shaved. The patient is happy and looking forward to discharge. SI/HI: "No." A/VH: "No." Sleep: Naps ADL's: Needs assistance/prompting Group attendance: Yes Were Meds taken: Medication compliant Any med S/E: None reported or observed Mental Status Exam Appearance: Thin, clean, dressed in street clothes. Eye contact: Good Behavior: Guarded Speech: Soft, poverty of speech, clipped Mood: Dysthymic Affect: Constricted, flat. Thought process: Linear, guarded, thought blocking Thought Content: Pt focused on discharge Cognition: Impaired Insight: Poor Judgment: Poor Interventions PRN's used: None Therapeutic interventions: 1:1 assessment, provided therapeutic communication, redirection from excessive drinking when needed, encouraged to go to groups, educated and encouraged pt to eat meals, medication administration/education/monitoring for compliance, monitor Q15 minutes for safety. Restraints/seclusion/emergency medication: None Justification of Continued Inpatient Treatment: Pt is GD unable to utilize the resources available to him. He is unable to provide himself with alf, clothing, or food.
[2019-03-12 20:12] VITALS: BP 115/76
--- NOTE | 2019-03-13 00:40 | NUR ---
NURSING PROGRESS NOTE Legal hold: TCON Client on involuntary status for GD Report received from ELOY Scott, with use of SBAR. Why are they here: Patient is a 23 year old male brought in by his brother/digital court reporter, for a mental health evaluation after the patient stopped taking his psychiatric medication, stopped his ADL'S and has not been eating. Per patient's brother, on 12/26 the patient was discharged from a mental health facility and was initially doing well. However, the patient stopped taking his medication and has steadily declined. Assessment What has happened this shift: Patient visible on the unit at the beginning of shift. He is dressed well in street clothes and hair well kept. When this flex o writer operator asked if he is happy to be leaving the unit tomorrow he agreed. Patient continued to answer with one word responses when asked about his health but remained pleasant and cooperative. He ate snack in group room and went to bed shortly after taking his medications. SI/HI: denied A/VH: denied Sleep: asleep at this time ADL's: Needs assistance/prompting Group attendance: group room for snack Were Meds taken: yes Any med S/E: None reported or observed Mental Status Exam Appearance: clean, dressed in street clothes, hair well kept Eye contact: Good Behavior: Guarded Speech: Soft, poverty of speech Mood: Dysthymic Affect: Constricted, flat. Thought process: Linear, guarded, thought blocking Thought Content: Pt focused on discharge Cognition: Impaired Insight: Poor Judgment: Poor Interventions PRN's used: None Therapeutic interventions: 1:1 assessment, provided therapeutic communication, redirection from excessive drinking when needed, encouraged to go to groups, educated and encouraged pt to eat meals, medication administration/education/monitoring for compliance, monitor Q15 minutes for safety. Restraints/seclusion/emergency medication: None Justification of Continued Inpatient Treatment: Pt is GD unable to utilize the resources available to him. He is unable to provide himself with skilled nursing, clothing, or food.
[2019-03-13] MEDS: lactose-reduced food (Ensure Enlive) - 237ml bottle PO SCH (08:00)
[2019-03-13] MEDS: OLANZapine 5mg rapidly disint. tablet PO SCH (08:01)
[2019-03-13] MEDS: LORazepam 0.5 MG tablet PO SCH (08:01)
[2019-03-13 08:45] VITALS: BP 98/63
--- NOTE | 2019-03-13 11:40 | NUR ---
DISCHARGE NOTE Patient discharged from unit at 0930, left [facility] ambulatory, accompanied by Heavy Repairer Beba and [facility] Dietetics Teacher. Dietetics Teacher will transport patient to [facility] in [place]. No S &S of distress. Discharge instructions given and patient provided opportunity to ask questions. Patients possessions inventoried by Beba and patient took all possessions with him. Community crisis service information provided. Patient has Improved since admit. Pt is T-Con, appt.s will be set w/ Public Gardain thru new placement. Patient does not want nicotine replacement.
== END 2019-03-13 09:30 | disposition short-term general hospital (02) | DRG 750 ==
LOC: ADULT MH 10:15 → UNDOADMIN 11:15 → ADULT MH 11:15
PROVIDERS: ADMIT Psychiatry & Neurology Psychiatry; ATTEND Psychiatry & Neurology Psychiatry
DX: F20.3 Undifferentiated schizophrenia (principal); Z91.14 Patient's other noncompliance with medication regimen; E78.5 Hyperlipidemia, unspecified; F17.210 Nicotine dependence, cigarettes, uncomplicated; R63.1 Polydipsia; Z79.899 Other long term (current) drug therapy; Z91.19 Patient's noncompliance with other medical treatment and regimen
CPT/HCPCS: 36415; 80048; 80053; 80061; 83036; 85025; 87081; Z7610

== ENCOUNTER 2021-07-21 23:05 | Inpatient (IN) | payer MEDICAID ==
[~2021-07-21] VITALS: Ht 165.1 cm; Wt 62.1 kg
[~2021-07-21 23:05] MED LIST changes: -BENZ1TAB7 PO; +BISA-97 PO; +CALC500T11 PO; +FERR325T28 PO; -HYDR50CA5 PO; +LORA-269 PO; -OLAN5TAB5 PO; -PALI6TAB PO
--- NOTE | 2021-07-21 23:43 | NUR ---
A VOID URINE SAMPLE WAS OBTAINED AND SENT FOR ANALYSIS. Jn TOMPKINS IS NOW SUPERVISING PATIENT. OTHER LABS ARE BEING DRAWN.
[2021-07-22 00:01] LABS: BASOPHILS % (AUTO) 0.2 % (0-1); EOSINOPHILS % (AUTO) 0.1 % (0-6); HEMATOCRIT 44.2 % (42.0-52.0); LYMPHOCYTES # (AUTO) 2.1 X10'3 (1.1-4.8); LYMPHOCYTES % (AUTO) 16.4 % (21-51); MEAN CORPUSCULAR HEMOGLOBIN 30.4 PG (27.0-31.0); MEAN CORPUSCULAR HGB CONC 33.9 g/dL (33.0-36.5); MEAN CORPUSCULAR VOLUME 89.7 FL (78-98); MONOCYTES # (AUTO) 1.9 X10'3 (0-0.9); MONOCYTES % (AUTO) 14.9 % (2-12); NEUTROPHILS # (AUTO) 8.9 X10'3 (1.8-7.7); NEUTROPHILS % (AUTO) 68.4 % (42-75); PLATELET COUNT 264 X10'3 (140-440); RED BLOOD COUNT 4.93 X10'6 (4.70-6.10); RED CELL DISTRIBUTION WIDTH 12.9 % (11.5-14.5)
[2021-07-22 00:15] LABS: GLUCOSE 77 MG/DL (70-104); POTASSIUM 3.8 MMOL/L (3.5-5.1); SODIUM 140 MMOL/L (135-145)
[2021-07-22 00:16] LABS: ALANINE AMINOTRANSFERASE 53 U/L (12-78); ALBUMIN 4.6 G/DL (3.4-5.0); ALBUMIN/GLOBULIN RATIO 1.3 (1.1-1.5); ALKALINE PHOSPHATASE 110 IU/L (46-116); ANION GAP 16 (8-16); ASPARTATE AMINO TRANSFERASE 70 U/L (10-37); BILIRUBIN,TOTAL 1.6 MG/DL (0.1-1.0); BLOOD UREA NITROGEN 22 MG/DL (7-18); BUN/CREATININE RATIO 26.5 (5.4-32.0); CALCIUM 9.3 MG/DL (8.5-10.1); CHLORIDE 102 MMOL/L (99-107); CREATININE 0.83 MG/DL (0.60-1.10); ETHANOL < 0.010 GM/DL (0.0-0.010); TOTAL CARBON DIOXIDE 21.7 MMOL/L (24-32); TOTAL PROTEIN 8.1 G/DL (6.4-8.2); eGFR > 90 ML/MIN
[2021-07-22 00:25] LABS: URINE AMPHETAMINE SCREEN POSITIVE (Neg); URINE BARBITUATE SCREEN NEGATIVE (Neg); URINE BENZODIAZEPINES SCREEN NEGATIVE (Neg); URINE CANNABINOID SCREEN NEGATIVE (Neg); URINE COCAINE SCREEN NEGATIVE (Neg); URINE METHADONE SCREEN NEGATIVE (Neg); URINE OPIATE SCREEN NEGATIVE (Neg); URINE PHENCYCLIDINE SCREEN NEGATIVE (Neg)
--- NOTE | 2021-07-22 05:02 | NUR ---
RECORDS SENT TO [facility]
--- NOTE | 2021-07-22 06:20 | NUR ---
RN Chris walked patient from Main ED to ED OF 24. Patient attempted to walk out and RN called Security. Patient complied when Security arrived. Patient changed into green scrubs. Continue to monitor.
[2021-07-22] MEDS ORDERED: MAG355OR18 PO (08:16)
[2021-07-22] MEDS ORDERED: ACET-1008 PO (08:16)
[2021-07-22] MEDS ORDERED: QUET50TA PO (08:16)
[2021-07-22] MEDS ORDERED: TEMA30CA5 PO (08:16)
[2021-07-22] MEDS ORDERED: OLAN5TAB5 PO (08:16)
[2021-07-22] MEDS ORDERED: mag hydrox/Alum hydrox/simeth 30ml oral suspension PO PRN ×2 (08:30→11:55)
[2021-07-22] MEDS ORDERED: calcium carbonate 500mg tablet PO PRN (08:30)
[2021-07-22] MEDS ORDERED: acetaminophen 325mg tablet PO PRN (08:30)
[2021-07-22] MEDS ORDERED: bisacodyl 5mg tablet.DR PO PRN (08:30)
--- NOTE | 2021-07-22 08:35 | NUR ---
Patient eating breakfast. No distress observed. Continue to monitor.
[2021-07-22] MEDS: QUEtiapine 25mg tablet PO SCH ×5 (08:36→20:21)
[2021-07-22] MEDS: ferrous sulfate 325mg tablet PO SCH ×2 (08:38→09:25)
[2021-07-22] MEDS: atorvastatin 20mg tablet PO SCH ×2 (08:38→09:25)
--- NOTE | 2021-07-22 09:35 | NUR ---
RN gave patient his medication. Patient initiall refused. Then he put the pills in his mouth and spit them out on the floor.
--- NOTE | 2021-07-22 11:20 | NUR ---
Patient showed RN his thumbs. His bilateral hands are red and both his thumbs have blisters on them. Patient's left thumb is worse than his right. RN got an order for Zinc Oxide BID to both thumbs. Thumbs are painful. Continue to monitor.
[2021-07-22] MEDS ORDERED: magnesium hydroxide 30ml (MOM) UD suspension PO PRN (11:55)
[2021-07-22] MEDS ORDERED: loperamide 2mg capsule PO PRN (11:55)
[2021-07-22 12:00] VITALS: BP 125/78
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
--- NOTE | 2021-07-22 15:47 | NUR ---
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 Pt wounds to bilateral thumbs however no wounds mentioned in physical assessment in EMR and pending [facility] note at this time. Pt current 58.2kg standing scaled wt down from prior visit 01/30/21 standing scale wt 71.9kg however pt had gained 14kg from that October-January admit this year. Wt likely returning to baseline at this time and likely receiving routine meals at [facility]. Pt reports unsure of wt loss hx per RN Malnutrition Screen, has no edema, and lacks minimum malnutrition criteria at this time. Will monitor for nutrition intervention needs this admit. Addendum: 07/22/21 at [address] Amended: Links added.
[2021-07-22] MEDS: acetaminophen 325mg tablet PO PRN (16:33)
--- NOTE | 2021-07-22 16:39 | NUR ---
Pt has been restless and requesting "when am I going to be discharged." Pt asked telegraphic typewriter operator "will you please call the police and tell them I'm missing." Pt's 1300 Seroquel was crushed and given in applesauce. Received in report pt spit out his pills when he was in [place]. Pt requested Nicotine lozenge, but since pt has some weather type skin issues in fingers and toes. Request will be reevaluated after doctor assessment. Pt appears fatigued. Noted pt guards his throat when he swallows, when asked if it was sore pt stated "yes." Temporal temperature was taken 99.1. Tylenol 650 mg was administered. Will reassess. [place] notified of symptoms.
--- NOTE | 2021-07-22 17:30 | NUR ---
Administered pt's 1700 Seroquel crushed in applesauce. Pt took without issue.
--- NOTE | 2021-07-22 18:01 | NUR ---
Reassessed temp after Tylenol 98.4 - Temporal.
[2021-07-22 19:50] VITALS: BP 141/91
[2021-07-22] MEDS: zinc oxide ointment 30gm tube TP SCH (20:00)
[2021-07-22] MEDS: temazepam 15mg capsule PO PRN (20:21)
[2021-07-22] MEDS: LORazepam 1 MG tablet PO PRN (20:21)
--- NOTE | 2021-07-23 00:43 | NUR ---
Nursing Progress Note: Legal hold: LPS Client on involuntary status for GD. Report received from ELOY Garrett with use of SBAR. Why are they here: Pt admitted to [facility] for Behavioral health today on LPS conservatorship for Schizophrenia. Pt had escaped from this unit 4-5 days earlier. Pt walked back into the emergency room this morning. Pt has wounds to bilateral thumbs that could be cold weather injury and to L foot. Pt has been off of his meds since leaving. Pt immediately requests to go to lower level of care, return to [facility] or leave today. Pt here for medication stabilization and placement. Assessment What has happened this shift: Patient walking on the unit at the beginning of shift. Pleasant and cooperative with care; compliant with medications. PRN Temazepam and Ativan provided this shift. Allowed writer producer to apply cream to his fingers but not wrapped up. Patient denies SI, HI, A/VH. Patient reports, "All good. I'm good." Patient goes back and forth from laying in bed to short walks in the bernard. No door checking observed this shift but questioning about when he can discharge. Patient mostly isolative to himself. He participated in HS snack and returned to bed; he placed mattress on the floor but appears to be sleeping without difficulty. S/I, H/I: Denies A/VH: Denies Sleep: Refer to sleep assessment ADL's: Independent Group attendance: NA Were meds taken: Yes Any med S/E: None observed or reported Mental Status Exam Appearance: Neat and dressed in green unit attire Eye contact: Intense Behavior: Pleasant and cooperative, self isolative Speech: Clear, audible, broken up/minimal Mood: Anxious Affect: Congruent Thought process: Thought blocking Thought Content: Discharge, food Cognition: A/O x3 Insight: Poor Judgment: Poor Interventions PRN's used: Ativan and Temazepam Therapeutic interventions: Maintained a safe and supportive environment, ensured contract for safety, provided clear and simple instructions, provided positive encouragement, monitored behaviors and need for intervention and maintained Q 15min safety checks. Restraints/seclusion/emergency medication: NA Justification of Continued Inpatient Treatment: Patient requires interruption of current crisis in a safe and therapeutic environment.
[2021-07-23 08:00] VITALS: BP 120/73
[2021-07-23 08:31] LABS: HEMOGLOBIN A1C 5.3 % (4.5-6.2)
[2021-07-23] MEDS: ferrous sulfate 325mg tablet PO SCH (08:50)
[2021-07-23] MEDS: atorvastatin 20mg tablet PO SCH (08:50)
[2021-07-23] MEDS: QUEtiapine 25mg tablet PO SCH ×4 (08:50→19:15)
[2021-07-23] MEDS: zinc oxide ointment 30gm tube TP SCH ×2 (08:51→19:32)
[2021-07-23] MEDS: acetaminophen 325mg tablet PO PRN ×2 (08:54→19:16)
[2021-07-23 09:36] LABS: CHOLESTEROL 105 MG/DL (0-200); HDL CHOLESTEROL 52 MG/DL (35-60); LDL CHOLESTEROL 38 MG/DL (50-100); TRIGLYCERIDES 57 MG/DL (20-135)
--- NOTE | 2021-07-23 17:29 | NUR ---
Nursing Progress Note: Legal hold: LPS Client on involuntary status for GD. Report received from nurse, SREEDHAR Ramos with use of SBAR. Why they are here: Pt admitted to [facility] for Behavioral health today on LPS conservatorship for Schizophrenia. Pt had escaped from this unit 4-5 days earlier. Pt walked back into the emergency room this morning. Pt has wounds to bilateral thumbs that could be cold weather injury and to L foot. Pt has been off of his meds since leaving. Pt immediately requests to go to lower level of care, return to [facility] or leave today. Pt here for medication stabilization and placement. Assessment What has happened this shift: Pt in bed at the start of shift. Per AFSANEH Amaya temporal temp 102F. Repeat COVID neg. Pt encouraged to drink fluids and rest. Pt up for breakfast then went back to bed. Pt slept in the afternoon for a few hours. Pt cooperative with staff today. S/I, H/I: Denies A/VH: Denies Sleep: Slept 2 hours in the afternoon ADL's: Independent Group attendance: NA Were meds taken: Yes Any med S/E: None observed or reported Mental Status Exam Appearance: Clean, dressed in green unit Eye contact: Intense Behavior: Cooperative, self-isolative Speech: Clear, audible, broken up/minimal Mood: Anxious Affect: Congruent Thought process: Thought blocking Thought Content: Discharge, food Cognition: A/O x3 Insight: Poor Judgment: Poor Interventions PRN's used: Ativan and Temazepam Therapeutic interventions: Maintained a safe and supportive environment, ensured contract for safety, provided clear and simple instructions, provided positive encouragement, monitored behaviors and need for intervention and maintained Q 15min safety checks. Restraints/seclusion/emergency medication: NA Justification of Continued Inpatient Treatment: Patient requires interruption of current crisis in a safe and therapeutic environment.
[2021-07-23] MEDS: LORazepam 1 MG tablet PO PRN (19:15)
[2021-07-23] MEDS: temazepam 15mg capsule PO PRN (19:15)
[2021-07-23 19:56] VITALS: BP 123/79
--- NOTE | 2021-07-23 23:42 | NUR ---
Nursing Progress Note: Legal hold: LPS Client on involuntary status for GD. Report received from ELOY Torres with use of SBAR. Why are they here: Pt admitted to [facility] for Behavioral health today on LPS conservatorship for Schizophrenia. Pt had escaped from this unit 4-5 days earlier. Pt walked back into the emergency room this morning. Pt has wounds to bilateral thumbs that could be cold weather injury and to L foot. Pt has been off of his meds since leaving. Pt immediately requests to go to lower level of care, return to [facility] or leave today. Pt here for medication stabilization and placement. Assessment What has happened this shift: Patient laying in bed at the beginning of shift. Pleasant and cooperative with care; compliant with medication. Patient reports soar throat and appears fatigued this shift. PRN Tylenol, Ativan and Temazepam provided. Patient denies SI, HI, A/VH; does not appear to be responding to IS and no apparent delusions reported. Patient participated in HS snack and promptly returned to bed; observed sleeping and does not appear to be having difficulty. S/I, H/I: Denies A/VH: Denies Sleep: Refer to sleep assessment ADL's: Independent Group attendance: NA Were meds taken: Yes Any med S/E: None observed or reported Mental Status Exam Appearance: Neat and dressed in green unit attire Eye contact: Intense Behavior: Pleasant and cooperative, isolative Speech: Clear, audible, broken up/minimal Mood: Fatigued, anxious Affect: Congruent Thought process: Thought blocking Thought Content: Not feeling well Cognition: A/O x3 Insight: Poor Judgment: Poor Interventions PRN's used: Tylenol, Ativan and Temazepam Therapeutic interventions: Maintained a safe and supportive environment, ensured contract for safety, provided clear and simple instructions, provided positive encouragement, monitored behaviors and need for intervention and maintained Q 15min safety checks. Restraints/seclusion/emergency medication: NA Justification of Continued Inpatient Treatment: Patient requires interruption of current crisis in a safe and therapeutic environment.
[2021-07-24 08:00] VITALS: BP 122/62
[2021-07-24] MEDS: LORazepam 1 MG tablet PO PRN ×2 (08:30→20:07)
[2021-07-24] MEDS: atorvastatin 20mg tablet PO SCH (08:30)
[2021-07-24] MEDS: QUEtiapine 25mg tablet PO SCH ×4 (08:30→20:07)
[2021-07-24] MEDS: ferrous sulfate 325mg tablet PO SCH (08:30)
[2021-07-24] MEDS: acetaminophen 325mg tablet PO PRN (08:31)
[2021-07-24] MEDS: zinc oxide ointment 30gm tube TP SCH ×2 (08:37→20:07)
[2021-07-24 11:15] LABS: BASOPHILS % (AUTO) 0.1 % (0-1); EOSINOPHILS # (AUTO) 0.3 X10'3 (0-0.9); HEMATOCRIT 39.5 % (42.0-52.0); LYMPHOCYTES # (AUTO) 1.1 X10'3 (1.1-4.8); LYMPHOCYTES % (AUTO) 10.2 % (21-51); MEAN CORPUSCULAR HEMOGLOBIN 30.8 PG (27.0-31.0); MEAN CORPUSCULAR HGB CONC 35.5 g/dL (33.0-36.5); MEAN CORPUSCULAR VOLUME 86.8 FL (78-98); MEAN PLATELET VOLUME 9.8 FL (7.4-10.4); MONOCYTES # (AUTO) 0.9 X10'3 (0-0.9); MONOCYTES % (AUTO) 8.6 % (2-12); NEUTROPHILS # (AUTO) 8.2 X10'3 (1.8-7.7); NEUTROPHILS % (AUTO) 78.1 % (42-75); PLATELET COUNT 208 X10'3 (140-440); RED BLOOD COUNT 4.55 X10'6 (4.70-6.10); RED CELL DISTRIBUTION WIDTH 12.4 % (11.5-14.5); WHITE BLOOD COUNT 10.5 X10'3 (4.5-11.0)
[2021-07-24 11:30] LABS: ALANINE AMINOTRANSFERASE 25 U/L (12-78); ALBUMIN 3.5 G/DL (3.4-5.0); ALKALINE PHOSPHATASE 105 IU/L (46-116); ANION GAP 11 (8-16); ASPARTATE AMINO TRANSFERASE 22 U/L (10-37); BILIRUBIN,TOTAL 0.6 MG/DL (0.1-1.0); BLOOD UREA NITROGEN 8 MG/DL (7-18); BUN/CREATININE RATIO 7.8 (5.4-32.0); CHLORIDE 99 MMOL/L (99-107); CREATININE 1.02 MG/DL (0.60-1.10); GLUCOSE 124 MG/DL (70-104); POTASSIUM 3.4 MMOL/L (3.5-5.1); SODIUM 137 MMOL/L (135-145); TOTAL CARBON DIOXIDE 27.3 MMOL/L (24-32); TOTAL PROTEIN 6.9 G/DL (6.4-8.2); eGFR 88 ML/MIN
[2021-07-24] MEDS ORDERED: diphenhydrAMINE 25mg capsule PO ONE (17:10)
--- NOTE | 2021-07-24 17:40 | NUR ---
Nursing Progress Note: Legal hold: LPS Client on involuntary status for GD. Report received from nurse, SREEDHAR Ramos with use of SBAR. Why they are here: Pt admitted to [facility] for Behavioral health today on LPS conservatorship for Schizophrenia. Pt had escaped from this unit 4-5 days earlier. Pt walked back into the emergency room this morning. Pt has wounds to bilateral thumbs that could be cold weather injury and to L foot. Pt has been off of his Meds since leaving. Pt immediately requests to go to lower level of care, return to [facility] or leave today. Pt here for medication stabilization and placement. Assessment What has happened this shift: Pt in bed at the start of shift. VS T. 100.9, HR 131, RR 18. Pt to eat breakfast in his room. Dr. [facility] notified. Labs drawn. WBC has decreased from 1216. Physical assessment reveals rash upper extremities, feet are warm to the touch and red. His eye is swollen. Per Yohana he will order more labs tomorrow and give Benadryl 25,g PO one time. Pt spent most the day resting. S/I, H/I: Denies A/VH: Denies Sleep: Slept on and off during the day ADL's: Independent Group attendance: NA Were meds taken: Yes Any med S/E: None observed or reported Mental Status Exam Appearance: Clean, dressed in green unit scrubs Eye contact: Intense Behavior: Cooperative, self-isolative Speech: Clear, audible, broken up/minimal Mood: Anxious Affect: Congruent Thought process: Thought blocking Thought Content: Food Cognition: A/O x3 Insight: Poor Judgment: Poor Interventions PRN's used: Ativan, Benadryl Therapeutic interventions: 1:1 assessment with therapeutic communication, maintained a safe and supportive environment, medication administration/education/monitoring, monitored behaviors and need for intervention and maintained Q 15min safety checks. Restraints/seclusion/emergency medication: NA Justification of Continued Inpatient Treatment: Patient requires interruption of current crisis in a safe and therapeutic environment.
[2021-07-24 19:38] VITALS: BP 127/81
[2021-07-24] MEDS: temazepam 15mg capsule PO PRN (20:07)
--- NOTE | 2021-07-25 03:03 | NUR ---
Nursing Progress Note: Legal hold: LPS Client on involuntary status for GD. Report received from ELOY Torres with use of SBAR. Why are they here: Pt admitted to [facility] for Behavioral health today on LPS conservatorship for Schizophrenia. Pt had escaped from this unit 4-5 days earlier. Pt walked back into the emergency room this morning. Pt has wounds to bilateral thumbs that could be cold weather injury and to L foot. Pt has been off of his meds since leaving. Pt immediately requests to go to lower level of care, return to [facility] or leave today. Pt here for medication stabilization and placement. Assessment What has happened this shift: Patient laying in bed at the beginning of shift. Pleasant and cooperative with care; compliant with medication. PRN Ativan and Temazepam provided. He continues to report he feels soar and some facial swelling and red blotchy areas remain on his arm. Patient denies SI, HI, A/VH; does not appear to be responding to IS and no apparent delusions reported. Patient participated in HS snack and promptly returned to bed; observed sleeping and does not appear to be having difficulty. S/I, H/I: Denies A/VH: Denies Sleep: Refer to sleep assessment ADL's: Independent Group attendance: NA Were meds taken: Yes Any med S/E: None observed or reported Mental Status Exam Appearance: Neat and dressed in green unit attire Eye contact: Intense Behavior: Pleasant and cooperative, isolative Speech: Clear, audible, broken up/minimal Mood: Fatigued, anxious Affect: Congruent Thought process: Circumstantial Thought Content: Not feeling well, snacks Cognition: A/O x3 Insight: Poor Judgment: Poor Interventions PRN's used: Ativan and Temazepam Therapeutic interventions: Maintained a safe and supportive environment, ensured contract for safety, provided clear and simple instructions, provided positive encouragement, monitored behaviors and need for intervention and maintained Q 15min safety checks. Restraints/seclusion/emergency medication: NA Justification of Continued Inpatient Treatment: Patient requires interruption of current crisis in a safe and therapeutic environment.
[2021-07-25 07:30] VITALS: BP 109/66
[2021-07-25] MEDS: zinc oxide ointment 30gm tube TP SCH ×2 (08:00→20:24)
[2021-07-25] MEDS: ferrous sulfate 325mg tablet PO SCH (08:43)
[2021-07-25] MEDS: QUEtiapine 25mg tablet PO SCH ×4 (08:43→20:24)
[2021-07-25] MEDS: atorvastatin 20mg tablet PO SCH (08:43)
[2021-07-25] MEDS: acetaminophen 325mg tablet PO PRN (08:59)
--- NOTE | 2021-07-25 14:30 | NUR ---
Pt. called 911. Pt.'s phone rights revoked per provider order.
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
[2021-07-25] MEDS: OLANZapine 5mg rapidly disint. tablet PO PRN (18:43)
[2021-07-25 19:26] VITALS: BP 118/78
[2021-07-25] MEDS: LORazepam 1 MG tablet PO PRN (20:24)
[2021-07-25] MEDS: temazepam 15mg capsule PO PRN (20:25)
--- NOTE | 2021-07-26 01:22 | NUR ---
Nursing Progress Note: Legal hold: LPS Client on involuntary status for GD. Report received from ELOY Berkowitz with use of SBAR. Why are they here: Pt admitted to [facility] for Behavioral health today on LPS conservatorship for Schizophrenia. Pt had escaped from this unit 4-5 days earlier. Pt walked back into the emergency room this morning. Pt has wounds to bilateral thumbs that could be cold weather injury and to L foot. Pt has been off of his meds since leaving. Pt immediately requests to go to lower level of care, return to [facility] or leave today. Pt here for medication stabilization and placement. Assessment What has happened this shift: Patient active on the unit at the beginning of shift. Pleasant and cooperative with care but impatient at time; compliant with all medication. Patient requested medication right at shift change and endorsed anxiety; PRN Zyprexa provided. Later PRN Ativan and Temazepam provided per his request. He asked about his clothing this shift and database report writer explained he needs to stay in green unit attire; he tolerated explanation well. Patient reports he is feeling better but still has some facial swelling and redness on arms. Patient participated in HS snack prior to bed; observed sleeping and does not appear to be having difficulty. S/I, H/I: Denies A/VH: Denies Sleep: Refer to sleep assessment ADL's: Independent Group attendance: NA Were meds taken: Yes Any med S/E: None observed or reported Mental Status Exam Appearance: Neat and dressed in green unit attire Eye contact: Intense Behavior: Pleasant and cooperative, hanging out near nurses station Speech: Clear, audible, broken up/minimal Mood: Anxious Affect: Congruent Thought process: Circumstantial Thought Content: Meeting needs, clothing Cognition: A/O x3 Insight: Poor Judgment: Poor Interventions PRN's used: Zyprexa, Ativan and Temazepam Therapeutic interventions: Maintained a safe and supportive environment, ensured contract for safety, provided clear and simple instructions, provided positive encouragement, monitored behaviors and need for intervention and maintained Q 15min safety checks. Restraints/seclusion/emergency medication: NA Justification of Continued Inpatient Treatment: Patient requires interruption of current crisis in a safe and therapeutic environment.
[2021-07-26 07:27] VITALS: BP 119/73
[2021-07-26] MEDS: QUEtiapine 25mg tablet PO SCH ×4 (07:42→20:07)
[2021-07-26] MEDS: atorvastatin 20mg tablet PO SCH (07:42)
[2021-07-26] MEDS: ferrous sulfate 325mg tablet PO SCH (07:42)
[2021-07-26] MEDS: zinc oxide ointment 30gm tube TP SCH ×2 (08:00→20:07)
[2021-07-26 09:00] VITALS: BP 114/73
--- NOTE | 2021-07-26 14:41 | NUR ---
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 Per WOC note, pt w/ necrosis to left thumb and abscess to L finger, no other skin issues. Pt currently on Regular diet w/ variable PO intake, avg 40% x 12 meals partially meeting needs. Pt may benefit from Ensure Enlive BID, d/w RN. LBM 07/25 w/ PRN bowel care available. Will continue to monitor Recs: 1. Continue Regular diet as tolerated 2. Ensure Enlive BID 3. Bowel care per rx 4. Weekly wts Addendum: 07/26/21 at [address] Amended: Links added.
--- NOTE | 2021-07-26 17:52 | NUR ---
Nursing Progress Note: Legal hold: LPS Client on involuntary status for GD. Report received from nurse, SREEDHAR Alexis with use of SBAR. Why they are here: Pt admitted to [facility] for Behavioral health today on LPS conservatorship for Schizophrenia. Pt had escaped from this unit 4-5 days earlier. Pt walked back into the emergency room this morning. Pt has wounds to bilateral thumbs that could be cold weather injury and to L foot. Pt has been off of his Meds since leaving. Pt immediately requests to go to lower level of care, return to [facility] or leave today. Pt here for medication stabilization and placement. Assessment What has happened this shift: RN received pt. asleep in bed at start of shift. Pt. refused AM vitals, RN was able to obtain after pt. awoke for breakfast. Pt. more calm today. Pt. did take a hoodie from another pt. attempted to hide a flattened milk carton in the hoodie. Pt. informed he must wear green scrubs because he is an elopement risk. Blister on pt.s thumb began to ooze and wound nurse contacted to asses. RN informed that pt.s wound looks good, and that the wound is not from sepulveda-bite. Triple antibiotic ointment and bandage applied. Pt. isolates to his room frequently and naps with his mattress on the ground. 1:1 done at the bedside, pt. states, Can I go home with you? I think Im ready to leave. Pt. states he wants to go to rehab. S/I, H/I: Denies A/VH: Denies Sleep: Pt. slept 5.75 hrs on NOC shift and napped most of the AM. ADL's: Independent. Pt. showered today. Group attendance: No Were meds taken: Yes Any med S/E: Denies, None observed. Mental Status Exam Appearance: Clean, dressed in green unit scrubs. Eye contact: WNL Behavior: Mostly cooperative. Speech: WNL Mood: Euthymic Affect: Blunted Thought process: Some thought blocking. Poverty of thought. Thought Content: Wants to go to rehab. Cognition: A/O x3 Insight: Poor Judgment: Poor Interventions PRN's used: None Therapeutic interventions: 1:1 assessment with therapeutic communication, maintained a safe and supportive environment, medication administration/education/monitoring, monitored behaviors and need for intervention and maintained Q 15min safety checks. Restraints/seclusion/emergency medication: NA Justification of Continued Inpatient Treatment: Patient requires interruption of current crisis in a safe and therapeutic environment.
[2021-07-26 19:46] VITALS: BP 114/78
[2021-07-26] MEDS: lactose-reduced food (Ensure Enlive) - 237ml bottle PO SCH (20:00)
[2021-07-26] MEDS: temazepam 15mg capsule PO PRN (20:07)
[2021-07-26] MEDS: LORazepam 1 MG tablet PO PRN (20:07)
--- NOTE | 2021-07-27 01:34 | NUR ---
Nursing Progress Note: Legal hold: LPS Client on involuntary status for GD. Report received from ELOY Berkowitz with use of SBAR. Why are they here: Pt admitted to [facility] for Behavioral health today on LPS conservatorship for Schizophrenia. Pt had escaped from this unit 4-5 days earlier. Pt walked back into the emergency room this morning. Pt has wounds to bilateral thumbs that could be cold weather injury and to L foot. Pt has been off of his meds since leaving. Pt immediately requests to go to lower level of care, return to [facility] or leave today. Pt here for medication stabilization and placement. Assessment What has happened this shift: Patient laying in bed at the beginning of shift. Pleasant and cooperate with care; compliant with medication. PRN Ativan and Temazepam provided this shift. Patient's facial swelling and redness appear to be improving. No door checking observed this shift. He participated i HS snack prior to bed; observed sleeping and does not appear to be having difficulty. S/I, H/I: Denies A/VH: Denies Sleep: Refer to sleep assessment ADL's: Independent Group attendance: NA Were meds taken: Yes Any med S/E: None observed or reported Mental Status Exam Appearance: Neat and dressed in green unit attire Eye contact: Intense Behavior: Pleasant and cooperative Speech: Clear, audible, broken up/minimal Mood: Anxious Affect: Congruent Thought process: Circumstantial Thought Content: Meeting needs Cognition: A/O x3 Insight: Poor Judgment: Poor Interventions PRN's used: Ativan and Temazepam Therapeutic interventions: Maintained a safe and supportive environment, ensured contract for safety, provided clear and simple instructions, provided positive encouragement, monitored behaviors and need for intervention and maintained Q 15min safety checks. Restraints/seclusion/emergency medication: NA Justification of Continued Inpatient Treatment: Patient requires interruption of current crisis in a safe and therapeutic environment.
[2021-07-27 07:10] VITALS: BP 126/83
[2021-07-27] MEDS: lactose-reduced food (Ensure Enlive) - 237ml bottle PO SCH (08:36)
[2021-07-27] MEDS: QUEtiapine 25mg tablet PO SCH ×4 (08:37→20:29)
[2021-07-27] MEDS: atorvastatin 20mg tablet PO SCH (08:37)
[2021-07-27] MEDS: ferrous sulfate 325mg tablet PO SCH (08:37)
[2021-07-27] MEDS: zinc oxide ointment 30gm tube TP SCH ×2 (08:37→20:30)
[2021-07-27] MEDS: LORazepam 1 MG tablet PO PRN (10:09)
--- NOTE | 2021-07-27 17:42 | NUR ---
Nursing Progress Note: Legal hold: LPS Client on involuntary status for GD. Report received from SREEDHAR Alexis with use of SBAR. Why are they here: Pt admitted to [facility] for Behavioral health today on LPS conservatorship for Schizophrenia. Pt had escaped from this unit 4-5 days earlier. Pt walked back into the emergency room this morning. Pt has wounds to bilateral thumbs that could be cold weather injury and to L foot. Pt has been off of his meds since leaving. Pt immediately requests to go to lower level of care, return to [facility] or leave today. Pt here for medication stabilization and placement. Assessment What has happened this shift: Patient is resting quietly in bed at the start of the shift. Cooperative with 1:1 assessment. When given medication patient states, No, Im good. Requires encouragement to take medications but is compliant. Requests medication for anxiety and is given PRN Ativan. After breakfast patient attempts to open doors to exit the unit. Attempted to redirect but patient continues to door check. Placed in seclusion for monitoring for 30 minutes after which patient does not make further attempts to elope. Isolates in his room for much of the day napping off and on. Patient face continues to appear somewhat puffy. Denies sore throat. Abscess to the left finger appears white but skin remains intact. Treatment completed as ordered. When walking the halls of the unit patient displays ritualistic behaviors. In the afternoon patient continues to isolate but comes out for meals and to meet his needs. S/I, H/I: Denies A/VH: Denies Sleep: 3 hours in the morning, naps off and on throughout the day ADL's: Independent Group attendance: No Were meds taken: Yes Any med S/E: None observed or reported Mental Status Exam Appearance: Younger man, unkempt, dressed in green unit attire. Eye contact: Good Behavior: Ritualistic, exit seeking Speech: Disorganized, minimal Mood: Euthymic Affect: Flat Thought process: Guarded, possible thought blocking Thought Content: Poverty of thought. Wants to leave. Cognition: A/O x2 to self and place Insight: Poor Judgment: Poor Interventions PRN's used: Ativan Therapeutic interventions: Maintained a safe and supportive environment, ensured contract for safety, provided clear and simple instructions, provided positive encouragement, monitored behaviors and need for intervention and maintained Q 15min safety checks. Restraints/seclusion/emergency medication: Seclusion x1 Justification of Continued Inpatient Treatment: Patient requires interruption of current crisis in a safe and therapeutic environment.
[2021-07-27 19:47] VITALS: BP 120/81
--- NOTE | 2021-07-28 00:05 | NUR ---
Nursing Progress Note: Legal hold: LPS Client on involuntary status for GD. Report received from SREEDHAR Alexis with use of SBAR. Why are they here: [facility] conservators[facility] for Schizophrenia. Pt had escaped from this unit 4-5 days earlier. Pt walked back into the emergency room this morning. Pt has wounds to bilateral thumbs that could be cold weather injury and to L foot. Pt has been off of his meds since leaving. Pt immediately requests to go to lower level of care, return to [place] or leave today. Pt here for medication stabilization and placement. Assessment What has happened this shift: Pt asleep in room at shift change. Mattress moved to the floor where pt now sleeps. When first entering room pt requested that I shut the door. This nurse came in and introduced herself. Asked the pt how his day went. Pt mumbled a reply and turned over and went to sleep. [id number] Pt approaces this contract writer and asks for evening meds, where it was explained that meds would be dispensed after snack. Pt mumbled and went back to his room. Pt woke up for snack and went back to room. Pt took medications w/o any complications. Upon examining pts thumb pt stated that he didn't need the ointment ordered for the wound. Ointment applied on both hands, where wounds were visible. Pt went to bed shortly after. S/I, H/I: Denies A/VH: Denies Sleep: See sleep hours ADL's: Independent Group attendance: No group in the evenings Were meds taken: Yes Any med S/E: None observed or reported Mental Status Exam Appearance: Younger man, unkempt, dressed in green unit attire. Eye contact: Good Behavior: Tired, wanting to take meds Speech: Disorganized, minimal Mood: Euthymic Affect: Flat Thought process: Guarded, self isolating Thought Content: Poverty of thought Cognition: A/O x2 to self and place Insight: Poor Judgment: Poor Interventions PRN's used: none Therapeutic interventions: Maintained a safe and supportive environment, ensured contract for safety, provided clear and simple instructions, provided positive encouragement, monitored behaviors and need for intervention and maintained Q 15min safety checks. Restraints/seclusion/emergency medication: none Justification of Continued Inpatient Treatment: Patient requires interruption of current crisis in a safe and therapeutic environment.
[2021-07-28 07:38] VITALS: BP 114/81
[2021-07-28] MEDS: ferrous sulfate 325mg tablet PO SCH (08:08)
[2021-07-28] MEDS: lactose-reduced food (Ensure Enlive) - 237ml bottle PO SCH ×2 (08:09→17:31)
[2021-07-28] MEDS: zinc oxide ointment 30gm tube TP SCH ×2 (08:09→20:08)
[2021-07-28] MEDS: atorvastatin 20mg tablet PO SCH (08:09)
[2021-07-28] MEDS: QUEtiapine 25mg tablet PO SCH ×4 (08:09→20:07)
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
--- NOTE | 2021-07-28 10:40 | NUR ---
Patient returned: Pt was returned by crisis response team to the Emergency room. Pt escorted up by security back to the unit. Pt instructed on what his expected behavior is to be. Pt is now on Line of site.
--- NOTE | 2021-07-28 11:33 | NUR ---
Called [facility] Public Guardian after hours number (ph# [phone]) to report Jozef Velez. Called again after he returned. JAYCEE Aiken
--- NOTE | 2021-07-28 17:14 | NUR ---
Nursing Progress Note: Legal hold: LPS Client on involuntary status for GD. Report received from SREEDHAR Alexis with use of SBAR. Why are they here: Pt admitted to [place] [facility] today on LPS conservatorship for Schizophrenia. Pt had escaped from this unit 4-5 days earlier. Pt walked back into the emergency room this morning. Pt has wounds to bilateral thumbs that could be cold weather injury and to L foot. Pt has been off of his meds since leaving. Pt immediately requests to go to lower level of care, return to [place] or leave today. Pt here for medication stabilization and placement. Assessment What has happened this shift: Patient is resting quietly in bed at the start of the shift. Cooperative with 1:1 assessment. Reluctant to take medications but is cooperative after prompting. Eats meals in the community room and interacts very little with staff and peers. Displays ritualistic behaviors. Speech is disorganized and frequently mumbled and incomprehensible. Noted trying to open fire exit door x1 but is redirected. At approximately 09:35 patient is noted to be missing and had closed the community room and eloped through the emergency exit. Alarm was not audible to staff with the door closed. Patient was later found by [facility] on the roof of a house and was returned to the unit and placed on LOS monitoring. S/I, H/I: Denies A/VH: Denies Sleep: 2 hours in the morning, naps off and on throughout the day ADL's: Independent Group attendance: No Were meds taken: Yes Any med S/E: None observed or reported Mental Status Exam Appearance: Younger man, unkempt, dressed in green unit attire. Eye contact: Good Behavior: Ritualistic, exit seeking Speech: Disorganized, minimal Mood: Euthymic Affect: Flat Thought process: Guarded, possible thought blocking Thought Content: Poverty of thought. Wants to leave. Cognition: A/O x2 to self and place Insight: Poor Judgment: Poor Interventions PRN's used: None Therapeutic interventions: Maintained a safe and supportive environment, ensured contract for safety, provided clear and simple instructions, provided positive encouragement, monitored behaviors and need for intervention and maintained Q 15min safety checks. Restraints/seclusion/emergency medication: NA Justification of Continued Inpatient Treatment: Patient requires interruption of current crisis in a safe and therapeutic environment.
[2021-07-28 19:00] VITALS: BP 113/75
--- NOTE | 2021-07-29 00:02 | NUR ---
Nursing Progress Note: Legal hold: LPS Client on involuntary status for GD. Report received from ELOY Garrett with use of SBAR. Why are they here: Pt admitted to [place] [facility] today on LPS conservatorship for Schizophrenia. Pt had escaped from this unit 4-5 days earlier. Pt walked back into the emergency room this morning. Pt has wounds to bilateral thumbs that could be cold weather injury and to L foot. Pt has been off of his meds since leaving. Pt immediately requests to go to lower level of care, return to [place] or leave today. Pt here for medication stabilization and placement. Assessment What has happened this shift: Pt laying in bed at beginning of shift. 1:1 pt mumbled incoherently and asked for snacks, made minimal responses. Pt got up for snacks at snack time. Pt took medications after snack time w/o complications. Around 2200 pt asked if he could have a shower, pt was reminded that he hjad already had a shower previously that morning. Pt asked if he could keep the door closed, pt was reminded he was LOS and door would remain open a crack so LOS was viable. Pt went to sleep shortly after and made no further attempts at communication. S/I, H/I: Denies A/VH: Denies Sleep: See sleep hours ADL's: Independent Group attendance: No group in the evenings Were meds taken: Yes Any med S/E: None observed or reported Mental Status Exam Appearance: Younger man, unkempt, dressed in green unit attire. Eye contact: Good Behavior: Ritualistic, asking for things Speech: Disorganized, minimal Mood: Euthymic Affect: Flat Thought process: Guarded, possible thought blocking Thought Content: Poverty of thought. Cognition: A/O x2 to self and place Insight: Poor Judgment: Poor Interventions PRN's used: None Therapeutic interventions: Maintained a safe and supportive environment, ensured contract for safety, provided clear and simple instructions, provided positive encouragement, monitored behaviors and need for intervention and maintained Q 15min safety checks. Restraints/seclusion/emergency medication: NA Justification of Continued Inpatient Treatment: Patient requires interruption of current crisis in a safe and therapeutic environment.
[2021-07-29] MEDS: atorvastatin 20mg tablet PO SCH (07:55)
[2021-07-29] MEDS: ferrous sulfate 325mg tablet PO SCH (07:55)
[2021-07-29] MEDS: acetaminophen 325mg tablet PO PRN (07:56)
[2021-07-29] MEDS: QUEtiapine 25mg tablet PO SCH ×4 (07:56→20:28)
[2021-07-29] MEDS: lactose-reduced food (Ensure Enlive) - 237ml bottle PO SCH ×2 (07:57→17:36)
[2021-07-29] MEDS: zinc oxide ointment 30gm tube TP SCH ×2 (07:57→20:28)
[2021-07-29 09:03] VITALS: BP 112/79
--- NOTE | 2021-07-29 16:26 | NUR ---
Nursing Progress Note: Legal hold: LPS Client on involuntary status for GD. Report received from SREEDHAR Ramos with use of SBAR. Why are they here: Pt admitted to [place] [facility] today on LPS conservatorship for Schizophrenia. Pt had escaped from this unit 4-5 days earlier. Pt walked back into the emergency room this morning. Pt has wounds to bilateral thumbs that could be cold weather injury and to L foot. Pt has been off of his meds since leaving. Pt immediately requests to go to lower level of care, return to [place] or leave today. Pt here for medication stabilization and placement. Assessment What has happened this shift: Received pt sleeping in bed at shift change. Patient attends breakfast in the community room, but does not socialize with others. Patient takes medications without incident. Patient is on LOS, but is testing the doors. Patient has been talked to by multiple staff of consequences of continuing to do this are seclusion. Patient is wanting to call his conservator, his parents, to call the doctor back; he is wanting discharge. Educated patient that he needs to control his behaviors to be able to discharge. S/I, H/I: Denies A/VH: Denies Sleep: Napped on and off throughout the day. ADL's: Independent Group attendance: NA Were meds taken: Yes Any med S/E: None observed or reported Mental Status Exam Appearance: Patient appears younger than stated age, wearing green scrubs. Eye contact: Good Behavior: Ritualistic movements, exit seeking Speech: Disorganized, minimal Mood: Frustrated. Affect: Flat Thought process: Guarded, possible thought blocking Thought Content: Patient wants to discharge. Cognition: A/O x2 to self and place Insight: Poor Judgment: Poor Interventions PRN's used: None Therapeutic interventions: Maintained a safe and supportive environment, ensured contract for safety, provided clear and simple instructions, provided positive encouragement, monitored behaviors and need for intervention and maintained Q 15min safety checks. Restraints/seclusion/emergency medication: NA Justification of Continued Inpatient Treatment: Patient requires interruption of current crisis in a safe and therapeutic environment.
[2021-07-29 19:05] VITALS: BP 110/78
--- NOTE | 2021-07-29 22:53 | NUR ---
Nursing Progress Note: Legal hold: LPS Client on involuntary status for GD. Report received from ELOY Ramos with use of SBAR. Why are they here: [facility] LPS conservatorship for Schizophrenia. Pt had escaped from this unit 4-5 days earlier. Pt walked back into the emergency room this morning. Pt has wounds to bilateral thumbs that could be cold weather injury and to L foot. Pt has been off of his meds since leaving. Pt immediately requests to go to lower level of care, return to [place] or leave today. Pt here for medication stabilization and placement. Assessment What has happened this shift: Pt asleep at shift change, Pt asked me to shut the door when I entered the room. Pt mumbled upon greeting. Pt stayed in bed most of shift and slept, pt got reminded of snack and ate in bed. Pt took medications w/o complaint. Applied zinc oxide to wound on left thumb. Pt went to sleep shortly after. S/I, H/I: Denies A/VH: Denies Sleep: See sleep hours ADL's: Independent Group attendance: No group in the evenings Were meds taken: Yes Any med S/E: None observed or reported Mental Status Exam Appearance: young male, brown hair, green scrubs Eye contact: Good Behavior: Ritualistic movements, exit seeking Speech: Disorganized, minimal Mood: Frustrated. Affect: Flat Thought process: Guarded, possible thought blocking Thought Content: sleep Cognition: A/O x2 to self and place Insight: Poor Judgment: Poor Interventions PRN's used: None Therapeutic interventions: Maintained a safe and supportive environment, ensured contract for safety, provided clear and simple instructions, provided positive encouragement, monitored behaviors and need for intervention and maintained Q 15min safety checks. Restraints/seclusion/emergency medication: NA Justification of Continued Inpatient Treatment: Patient requires interruption of current crisis in a safe and therapeutic environment.
[2021-07-30] MEDS: QUEtiapine 25mg tablet PO SCH ×4 (07:25→21:00)
[2021-07-30] MEDS: ferrous sulfate 325mg tablet PO SCH (07:25)
[2021-07-30] MEDS: atorvastatin 20mg tablet PO SCH (07:25)
[2021-07-30] MEDS: zinc oxide ointment 30gm tube TP SCH ×2 (07:27→20:00)
[2021-07-30] MEDS: lactose-reduced food (Ensure Enlive) - 237ml bottle PO SCH ×2 (07:30→18:00)
[2021-07-30 07:49] VITALS: BP 125/87
--- NOTE | 2021-07-30 16:21 | NUR ---
Nursing Progress Note: Legal hold: LPS Client on involuntary status for GD Report received from nurse with use of SBAR: Tere Salas RN Why are they here: Pt admitted to [place] [facility] today on LPS conservatorship for Schizophrenia. Pt had escaped from this unit 4-5 days earlier. Pt walked back into the emergency room this morning. Pt has wounds to bilateral thumbs that could be cold weather injury and to L foot. Pt has been off of his meds since leaving. Pt immediately requests to go to lower level of care, return to [place] or leave today. Pt here for medication stabilization and placement. Assessment What has happened this shift: Received pt. sleeping on a mattress on the floor at bedside at the beginning of the shift, he remains on LOS r/t elopement risk. Pt. was awoken to attend breakfast in the Group Room, he continues to require direction and encouragement to perform ADLs and consumes approximately 25% of his breakfast and Ensure. Afterwards, pt. paces restlessly in the hallway, however is not observed to be exhibiting any door-checking behaviors this shift. He makes a telephone call to his brother to wish him a Gabriellaalanna Anisa with assistance from staff. Pt. retreats back to bed where he isolates throughout the day, napping intermittently. 1:1 completed at bedside, pt. responds minimally to direct questions only with fragmented sentences. This writer editor questioned pt. regarding why he was sleeping on the floor, and he was unable verbalize why, other than to say this is where he prefers to be. Pt. was cooperative with taking his medications with encouragement, administered in applesauce. He denies any S/I, H/I, A/V/ANDRADE, and no delusional statements were made. Pt. states bluntly, "I'm alright." Pt. continued to isolate in bed throughout the afternoon. This writer editor monitored pt's finger abrasions and ordered Zinc Oxide applied, areas appear to be healing well. S/I, H/I: Denies A/VH: Denies, does not appear internally preoccupied Sleep: Sleep hours are 4.75 and pt. naps throughout much of the day ADL's: Requires direction and encouragement Group attendance: N/A Were meds taken: Yes with encouragement Any med S/E: None Mental Status Exam Appearance: Hair somewhat disheveled r/t laying in bed, dressed in green scrubs Eye contact: Good, intense at times Behavior: Cooperative/RTC, fatigued, restless, impulsive, and guarded Speech: Fragmented Mood: Fatigued and guarded Affect: Blunted Thought process: Poverty of thought with possible thought blocking Thought Content: Perseveration on desire to discharge Cognition: A&O x3 Insight: Poor Judgment: Poor Interventions PRN's used: None Therapeutic interventions: Maintained a safe and supportive environment, ensured contract for safety, provided clear and simple instructions, provided direction and encouragement regarding performance of ADLs, monitored behaviors and maintained clear boundaries, and maintained LOS. Restraints/seclusion/emergency medication: N/A Justification of Continued Inpatient Treatment: JEM Cervantes pt. continues to require a safe and supportive environment, medications were recently increased.
[2021-07-30 19:45] VITALS: BP 125/80
--- NOTE | 2021-07-31 02:43 | NUR ---
Nursing Progress Note: Legal hold: LPS Client on involuntary status for GD Report received from nurse with use of SBAR: ELYO Garrett Why are they here: Pt admitted to [place] [facility] today on LPS conservatorship for Schizophrenia. Pt had escaped from this unit 4-5 days earlier. Pt walked back into the emergency room this morning. Pt has wounds to bilateral thumbs that could be cold weather injury and to L foot. Pt has been off of his meds since leaving. Pt immediately requests to go to lower level of care, return to [place] or leave today. Pt here for medication stabilization and placement. Assessment What has happened this shift: Patient was observed pacing in front of patients room at beginning of shift. Patient stayed in his room during shift except to for snack time. Patients stats he doesn't like having a shadow. Patient refused all night medications. Nurse attempted x2, patient stats he doesn't like feeling sedated. patient slept well S/I, H/I: Denies A/VH: Denies, does not appear internally preoccupied Sleep: See sleep assessment ADL's: Requires direction and encouragement Group attendance: N/A Were meds taken: Yes with encouragement Any med S/E: None Mental Status Exam Appearance: Hair somewhat disheveled r/t laying in bed, dressed in green scrubs Eye contact: Good, intense at times Behavior: Cooperative/RTC, fatigued, restless, impulsive, and guarded Speech: Fragmented Mood: Fatigued and guarded Affect: Blunted Thought process: Poverty of thought with possible thought blocking Thought Content: Perseveration on desire to discharge Cognition: A&O x3 Insight: Poor Judgment: Poor Interventions PRN's used: None Therapeutic interventions: Maintained a safe and supportive environment, ensured contract for safety, provided clear and simple instructions, provided direction and encouragement regarding performance of ADLs, monitored behaviors and maintained clear boundaries, and maintained LOS. Restraints/seclusion/emergency medication: N/A Justification of Continued Inpatient Treatment: Per JEM Gaona pt. continues to require a safe and supportive environment, medications were recently increased.
[2021-07-31] MEDS: OLANZapine 5mg rapidly disint. tablet PO PRN ×2 (05:15→18:45)
[2021-07-31] MEDS: lactose-reduced food (Ensure Enlive) - 237ml bottle PO SCH ×2 (07:30→18:22)
[2021-07-31 08:00] VITALS: BP 111/78
[2021-07-31] MEDS: LORazepam 1 MG tablet PO PRN ×2 (08:23→18:45)
[2021-07-31] MEDS: ferrous sulfate 325mg tablet PO SCH ×2 (08:23→18:47)
[2021-07-31] MEDS: atorvastatin 20mg tablet PO SCH ×2 (08:23→18:45)
[2021-07-31] MEDS: QUEtiapine 25mg tablet PO SCH ×4 (08:24→18:55)
[2021-07-31] MEDS: zinc oxide ointment 30gm tube TP SCH ×2 (08:25→18:55)
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
[2021-07-31] MEDS: temazepam 15mg capsule PO PRN (18:47)
[2021-07-31 20:50] VITALS: BP 120/85
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
[2021-08-01] MEDS: QUEtiapine 25mg tablet PO SCH ×4 (07:23→19:01)
[2021-08-01] MEDS: zinc oxide ointment 30gm tube TP SCH ×2 (07:24→20:37)
[2021-08-01] MEDS: lactose-reduced food (Ensure Enlive) - 237ml bottle PO SCH ×2 (07:30→18:21)
--- NOTE | 2021-08-01 07:36 | NUR ---
Reassessment: Pt PO has declined some, avg 25% of meals and ~ 50% of ONS while also consuming some snacks likely meeting close to minimum nutrient needs. Pt noted to need encouragement for ADLs and meals. [facility] 07/29. No change to nutrition recommendations at this time, will continue to monitor. Recs: 1. Continue Regular diet as tolerated 2. Ensure Enlive BID 3. Bowel care per rx 4. Weekly wts Addendum: 08/01/21 at [address] Amended: Links added.
[2021-08-01 08:00] VITALS: BP 112/86
[2021-08-01] MEDS: OLANZapine 5mg rapidly disint. tablet PO PRN ×2 (08:41→19:01)
[2021-08-01] MEDS: LORazepam 1 MG tablet PO PRN ×2 (08:41→19:01)
--- NOTE | 2021-08-01 15:02 | NUR ---
Nursing Progress Note: Legal hold: LPS Client on involuntary status for GD Report received from nurse with use of SBAR: ELOY Alexis Why are they here: Pt admitted to [facility] today on LPS conservatorship for Schizophrenia. Pt had escaped from this unit 4-5 days earlier. Pt walked back into the emergency room this morning. Pt has wounds to bilateral thumbs that could be cold weather injury and to L foot. Pt has been off of his meds since leaving. Pt immediately requests to go to lower level of care, return to [place] or leave today. Pt here for medication stabilization and placement. Assessment What has happened this shift: Received pt. sleeping in bed at the beginning of the shift, he remains on LOS for elopement precautions. Pt. requires ongoing direction and encouragement to preform ADLs and attend breakfast in the Group Room. At breakfast, pt. took a few bites of his meal and reported he was done and wanted to leave. Staff provided education and encouragement to pt. regarding the importance of nutrition and consuming his meal. Pt. became irritable and stated, "Stop harassing me! I have to take a s..t!" Pt. had just spent a long amount of time in the bathroom before coming to breakfast and he was reminded of this. He required clear boundaries, and finally consented to sitting down and drinking more of his Ensure with multiple redirections from staff. After breakfast, pt. was encouraged to help staff with some tasks in the Group Room in order give him something to focus on and help to decrease negative behaviors. However, pt. became increasingly agitated and threatened to hit his sitter, even striking out at her on several attempts stating, "Send me to custodial!." This was endorsed to JEM Gaona who provided education to pt. that he would not go to custodial, but would be put in seclusion. Pt. reported understanding and retreated to his room where PRN Ativan and Zyprexa were administered with effectiveness. 1:1 was completed at bedside, pt. reports A/H, but is unsure of what the voices are saying. He also reports V/H, states, "I see my dad. I used to see him all the time." Pt. then makes a paranoid delusional statement that he believes others are "Poisoning him." This property underwriter assured pt. of his safety on the unit and he reported some contentment. Pt. isolated in bed throughout much of the shift, napping intermittently. He required ongoing direction and encouragement from staff to attend meals in the Group Room and complete ADLs. This property underwriter monitored pt's finger abrasions and ordered Zinc Oxide applied, areas appear to be healing well. S/I, H/I: Denies A/VH: Reports A/H and V/ANDRADE Sleep: Sleep hours are 8.25, and pt. naps intermittently ADL's: Requires direction and encouragement Group attendance: N/A Were meds taken: Yes with encouragement Any med S/E: None Mental Status Exam Appearance: Hair somewhat disheveled r/t laying in bed, dressed in green scrubs Eye contact: Good, intense at times Behavior: Cooperative/RTC, fatigued, restless, anxious, impulsive, and irritable at times Speech: Fragmented, however length has improved Mood: Restless with some irritability and fatigue Affect: Blunted Thought process: Poverty of thought with possible thought blocking Thought Content: Perseveration on ongoing desire to discharge Cognition: A&O x3 Insight: Poor Judgment: Poor Interventions PRN's used: Ativan and Zyprexa Therapeutic interventions: Maintained a safe and supportive environment, ensured contract for safety, provided clear and simple instructions, provided direction and encouragement regarding performance of ADLs, monitored behaviors and maintained clear boundaries, provided positive reinforcement for positive behaviors, and maintained LOS. Restraints/seclusion/emergency medication: N/A Justification of Continued Inpatient Treatment: Per JEM Gaona pt. continues to require a safe and supportive environment, medications were recently increased. Clear boundaries need to be enforced along with positive reinforcement. Addendum: 08/01/21 at 1616 by Ruth Carlso RN Pt's ordered daily ferrous sulfate and Lipitor were previously administered last HS, so these medications were not given this AM, endorsed to JEM Gaona.
[2021-08-01] MEDS: temazepam 15mg capsule PO PRN (19:01)
[2021-08-01 20:48] VITALS: BP 114/73
--- NOTE | 2021-08-02 00:19 | NUR ---
Nursing Progress Note: Legal hold: LPS Client on involuntary status for GD Report received from nurse with use of SBAR: ELOY Garrett Why are they here: Pt admitted to [facility] today on LPS conservatorship for Schizophrenia. Pt had escaped from this unit 4-5 days earlier. Pt walked back into the emergency room this morning. Pt has wounds to bilateral thumbs that could be cold weather injury and to L foot. Pt has been off of his meds since leaving. Pt immediately requests to go to lower level of care, return to [facility] or leave today. Pt here for medication stabilization and placement. Assessment What has happened this shift: Patient continues on a LOS and stayed in his room all night. Pt was given snack in his room and was Med compliant. Pt was cooperative with instructions and fell asleep. S/I, H/I: Denies A/VH: Reports A/H and V/ANDRADE Sleep: See sleep assessment ADL's: Requires direction and encouragement Group attendance: N/A Were meds taken: Yes with encouragement Any med S/E: None Mental Status Exam Appearance: Hair somewhat disheveled r/t laying in bed, dressed in green scrubs Eye contact: Good, intense at times Behavior: Cooperative/RTC, fatigued, restless, anxious, impulsive, and irritable at times Speech: Fragmented, however length has improved Mood: Restless with some irritability and fatigue Affect: Blunted Thought process: Poverty of thought with possible thought blocking Thought Content: Perseveration on ongoing desire to discharge Cognition: A&O x3 Insight: Poor Judgment: Poor Interventions PRN's used: Ativan and Zyprexa Therapeutic interventions: Maintained a safe and supportive environment, ensured contract for safety, provided clear and simple instructions, provided direction and encouragement regarding performance of ADLs, monitored behaviors and maintained clear boundaries, provided positive reinforcement for positive behaviors, and maintained LOS. Restraints/seclusion/emergency medication: N/A Justification of Continued Inpatient Treatment: Per JEM Gaona pt. continues to require a safe and supportive environment, medications were recently increased. Clear boundaries need to be enforced along with positive reinforcement.
[2021-08-02] MEDS: lactose-reduced food (Ensure Enlive) - 237ml bottle PO SCH ×3 (07:30→18:39)
[2021-08-02] MEDS: QUEtiapine 25mg tablet PO SCH ×4 (07:40→19:54)
[2021-08-02] MEDS: ferrous sulfate 325mg tablet PO SCH (07:40)
[2021-08-02] MEDS: atorvastatin 20mg tablet PO SCH (07:40)
[2021-08-02 08:00] VITALS: BP 113/77
[2021-08-02] MEDS: zinc oxide ointment 30gm tube TP SCH ×2 (08:10→20:02)
[2021-08-02] MEDS ORDERED: benzocaine/menthol oral lozeng 1 EACH BOX MM PRN (09:55)
--- NOTE | 2021-08-02 13:27 | NUR ---
WOUND INFECTION EDUCATION PROVIDED BY WOUND CARE 1. Patient instructed to call their primary doctor, or go the ED immediately if any of the following symptoms occur: * Increased pain in wound * Increase in drainage from the wound * Redness in the skin surrounding the wound * Warmth in the skin surrounding the wound * Bleeding from the wound * Temperature of 101 or greater 2. If any of these occur while in the hospital tell a nurse immediately. Addendum: 08/02/21 at 1327 by Viridiana Mejia RN Amended: Links added.
--- NOTE | 2021-08-02 15:43 | NUR ---
Nursing Progress Note: Legal hold: LPS Client on involuntary status for GD Report received from nurse with use of SBAR: ELOY Alexis Why are they here: Pt admitted to [facility] today on LPS conservatorship for Schizophrenia. Pt had escaped from this unit 4-5 days earlier. Pt walked back into the emergency room this morning. Pt has wounds to bilateral thumbs that could be cold weather injury and to L foot. Pt has been off of his meds since leaving. Pt immediately requests to go to lower level of care, return to [place] or leave today. Pt here for medication stabilization and placement. Assessment What has happened this shift: Received pt. sleeping in bed at the beginning of the shift, he remains on LOS for elopement precautions. Pt. requires ongoing direction and encouragement to preform ADLs and attend meals. He appears to be eating better without requiring as much encouragement, he is also drinking most of his Ensure. After breakfast, pt. returned to bed and 1:1 was completed at bedside. Pt. continues to deny any S/I or H/I, however when questioned regarding A/ANDRADE pt. states indecisively, "Yes, no, yes, no." When questioned regarding ongoing V/ANDRADE of his father, pt. states in a fragmented way, "Yes, I miss him... never really had good enough." Pt. also reports ongoing paranoid delusions that others want to hurt him, he states, "I'm having really bad delusions." When asked by this staff writer about these delusions, pt. was unable to describe them. He was provided reassurance by this staff writer that he is in a safe environment with staff who care about him and pt. reported contentment. Pt. even joked with this staff writer stating if he was outside, "I'd be like a leprechaun in a cage." Pt. again isolated in bed throughout much of the shift, napping intermittently. He was observed to get out of bed, stand for a few moments, and then get back into bed at intervals r/t what appeared to be OCD behaviors. Pt. also exhibits congestion and c/o a sore throat, endorsed to JEM Gaona and obtained orders for PRN Chloraseptic Lozenges. Pt. has increased redness, swelling, warmth, and pain at the end of his right middle finger, he admits to picking at the area and skin appears to be peeled back. Area was assessed by wound care and JEM Gaona. Obtained new orders for Keflex 500mg Q 8 hours, and area is to be kept covered if possible, although pt. continues to remove covering. Staff to remind pt. not to pick at area, will endorse to Noc shift. Picture obtained and placed in pt's chart, will continue to monitor. S/I, H/I: Denies A/VH: Reports A/H and V/ANDRADE Sleep: Sleep hours are 8.5, and pt. naps intermittently ADL's: Requires direction and encouragement Group attendance: No Were meds taken: Yes with encouragement Any med S/E: None Mental Status Exam Appearance: Hair somewhat disheveled r/t laying in bed, dressed in green scrubs Eye contact: Good, intense at times Behavior: Cooperative/RTC, fatigued, restless, and impulsive Speech: Fragmented, however length has improved Mood: Pleasant Affect: Blunted Thought process: Poverty of thought with possible thought blocking Thought Content: A/V/ANDRADE and delusions Cognition: A&O x3 Insight: Poor Judgment: Poor Interventions PRN's used: None Therapeutic interventions: Maintained a safe and supportive environment, ensured contract for safety, provided clear and simple instructions, provided direction and encouragement regarding performance of ADLs, monitored behaviors and maintained clear boundaries, provided positive reinforcement for positive behaviors, monitored abrasions on fingers and obtained new order for ABTs r/t worsening area on pt's right middle finger, and maintained LOS. Restraints/seclusion/emergency medication: N/A Justification of Continued Inpatient Treatment: Per JEM Gaona pt. continues to require a safe and supportive environment, medications were recently increased. Clear boundaries need to be enforced along with positive reinforcement.
[2021-08-02] MEDS: cephalexin 500mg capsule PO SCH (17:10)
[2021-08-02] MEDS: LORazepam 1 MG tablet PO PRN (19:53)
[2021-08-02] MEDS: lactobacillus rhamnosus 10,000 MMU CELLS/CAPSULE PO SCH (19:54)
[2021-08-02] MEDS: temazepam 15mg capsule PO PRN (19:57)
[2021-08-02] MEDS: OLANZapine 5mg rapidly disint. tablet PO PRN (19:57)
[2021-08-02 20:28] VITALS: BP 121/80
--- NOTE | 2021-08-03 00:07 | NUR ---
Nursing Progress Note: Legal hold: LPS Client on involuntary status for GD Report received from nurse with use of SBAR: ELOY Bunn Why are they here: [facility] LPS conservatorship for Schizophrenia. Pt had escaped from this unit 4-5 days earlier. Pt walked back into the emergency room this morning. Pt has wounds to bilateral thumbs that could be cold weather injury and to L foot. Pt has been off of his meds since leaving. Pt immediately requests to go to lower level of care, return to [place] or leave today. Pt here for medication stabilization and placement. Assessment What has happened this shift: Received pt. in bed at the beginning of the shift, he remains on LOS for [place] precautions. Pt. requires constant redirection when up on the unit. Pt walked the [place]ard a few times but mostly stayed in his room. S/I, H/I: Denies A/VH: Reports A/H and V/ANDRADE Sleep: See sleep assessment ADL's: Requires direction and encouragement Group attendance: No Were meds taken: Yes with encouragement Any med S/E: None Mental Status Exam Appearance: Hair somewhat disheveled r/t laying in bed, dressed in green scrubs Eye contact: Good, intense at times Behavior: Cooperative/RTC, fatigued, restless, and impulsive Speech: Fragmented, however length has improved Mood: Pleasant Affect: Blunted Thought process: Poverty of thought with possible thought blocking Thought Content: A/V/ANDRADE and delusions Cognition: A&O x3 Insight: Poor Judgment: Poor Interventions PRN's used: ativan ,Zyprexa. Therapeutic interventions: Maintained a safe and supportive environment, ensured contract for safety, provided clear and simple instructions, provided direction and encouragement regarding performance of ADLs, monitored behaviors and maintained clear boundaries, provided positive reinforcement for positive behaviors, monitored abrasions on fingers and obtained new order for ABTs r/t worsening area on pt's right middle finger, and maintained LOS. Restraints/seclusion/emergency medication: N/A Justification of Continued Inpatient Treatment: Per JEM Gaona pt. continues to require a safe and supportive environment, medications were recently increased. Clear boundaries need to be enforced along with positive reinforcement.
[2021-08-03] MEDS: cephalexin 500mg capsule PO SCH ×3 (00:24→16:51)
[2021-08-03] MEDS: lactobacillus rhamnosus 10,000 MMU CELLS/CAPSULE PO SCH ×2 (07:55→21:21)
[2021-08-03] MEDS: ferrous sulfate 325mg tablet PO SCH (07:55)
[2021-08-03] MEDS: QUEtiapine 25mg tablet PO SCH ×4 (07:55→21:20)
[2021-08-03] MEDS: zinc oxide ointment 30gm tube TP SCH ×2 (07:55→20:00)
[2021-08-03] MEDS: atorvastatin 20mg tablet PO SCH (07:55)
[2021-08-03 08:00] VITALS: BP 133/87
[2021-08-03] MEDS: lactose-reduced food (Ensure Enlive) - 237ml bottle PO SCH ×2 (08:08→18:20)
[2021-08-03] MEDS: LORazepam 1 MG tablet PO PRN ×2 (10:20→21:23)
[2021-08-03] MEDS: acetaminophen 325mg tablet PO PRN (10:26)
--- NOTE | 2021-08-03 14:43 | NUR ---
Legal hold: LPS Client on involuntary status for GD Report received from nurse with use of SBAR: ELOY Alexis Why are they here: Pt admitted to [facility] today on LPS conservatorship for Schizophrenia. Pt had escaped from this unit 4-5 days earlier. Pt walked back into the emergency room this morning. Pt has wounds to bilateral thumbs that could be cold weather injury and to L foot. Pt has been off of his meds since leaving. Pt immediately requests to go to lower level of care, return to [place] or leave today. Pt here for medication stabilization and placement. Assessment What has happened this shift: Received pt. sleeping in bed at the beginning of the shift, he remains on LOS for elopement precautions. Pt. requires ongoing direction and encouragement to preform ADLs and attend meals. He drank all of his Ensure at breakfast with positive encouragement from staff. After breakfast, pt. retreated back to his room as is his routine, he presents as restless and repeatedly attempts to close his door stating in a delusional manner, "I have to have it closed because I can't breathe if it's open." Pt. continues to require frequent re-education regarding the rules of the unit and clear boundaries. V/S were obtained and pt's HR was elevated. He admits to feeing anxious, however when questioned by this comic book writer regarding the need for PRN Ativan he states indecisively, "Yes, no it's okay, yes, no." Medication was administered along with PRN Tylenol for finger pain with effectiveness. Pt. also admits to ongoing V/ANDRADE of his father. He states in a disorganized manner, "My dad fell off the roof." Upon further questioning, this comic book writer learned that pt. was talking about a past event. He then went on to talk about how his dad broke his arm, and how he later broke his own arm by jumping over a fence. Pt. again isolated in bed throughout much of the shift, napping intermittently. He was also observed to get out of bed, stand for a few moments, and then get back into bed at intervals r/t what appeared to be OCD behaviors. Pt. continues to have increased redness, swelling, warmth, and pain at the end of his right middle finger, and is on oral ABT for cellulitis at the area. This comic book writer applied a Band Aide over area in order to keep it covered to prevent further infection, however pt. immediately removed it. Will continue to monitor area closely and provide eduction. S/I, H/I: Denies A/VH: Reports A/H and V/ANDRADE Sleep: Sleep hours are 7.75, and pt. naps intermittently ADL's: Requires direction and encouragement Group attendance: No Were meds taken: Yes with encouragement Any med S/E: None Mental Status Exam Appearance: Hair somewhat disheveled r/t laying in bed, dressed in green scrubs Eye contact: Good, intense at times Behavior: Cooperative/RTC, fatigued, restless, anxious, and impulsive Speech: Fragmented, however length has improved Mood: Pleasant Affect: Blunted Thought process: Poverty of thought with disorganization Thought Content: A/V/ANDRADE and delusions Cognition: A&O x3 Insight: Poor Judgment: Poor Interventions PRN's used: None Therapeutic interventions: Maintained a safe and supportive environment, ensured contract for safety, provided clear and simple instructions, provided direction and encouragement regarding performance of ADLs, monitored behaviors and maintained clear boundaries, provided positive reinforcement for positive behaviors, monitored abrasions on fingers and applied Band Aide over area with cellulitis on right middle finger, and maintained LOS. Restraints/seclusion/emergency medication: N/A Justification of Continued Inpatient Treatment: Per JEM Gaona pt. continues to require a safe and supportive environment, medications were recently increased. Clear boundaries need to be enforced along with positive reinforcement. Addendum: 08/03/21 at 1739 by Ruth Carlos RN Prior to dinner, this comic book writer was on LOS with pt. and pt. walked up to this comic book writer's face and made punching gestures. Clear boundaries were maintained, and pt. was educated that this behavior is inappropriate. Pt. smiled and made more punching motions at this comic book writer's face. Pt. was educated that he will be placed in seclusion if he continues this behavior. He then stopped and stated, "That's unfair." Will continue to monitor and provide redirection as needed.
[2021-08-03 19:41] VITALS: BP 106/77
--- NOTE | 2021-08-04 01:12 | NUR ---
Nursing Progress Note: Legal hold: LPS Client on involuntary status for GD Report received from ELOY Berkowitz with use of SBAR. Why are they here: Pt admitted to [facility] today on LPS conservatorship for Schizophrenia. Pt had escaped from this unit 4-5 days earlier. Pt walked back into the emergency room this morning. Pt has wounds to bilateral thumbs that could be cold weather injury and to L foot. Pt has been off of his meds since leaving. Pt immediately requests to go to lower level of care, return to [facility] or leave today. Pt here for medication stabilization and placement. Assessment What has happened this shift: Patient isolates in his room following shift change. Patient sits up when this press writer enters room. Patient tells this press writer he is "feeling fine." He denies S/I, H/I, or any hallucinations. He denies audible or visual hallucinations. Patient answers questions minimally. He is medication compliant. Patient does present with mild anxiety. Ativan was given. Patient is a line of sight because of elopement risk. S/I, H/I: Denies. A/VH: Denies. Sleep: Will tally at 0500 hours. ADL's: Requires direction and encouragement. Group attendance: No group on retail shift leader. Were meds taken: Yes with encouragement Any med S/E: None noted or reported. Mental Status Exam Appearance: Wearing green scrubs, disheveled looking. Eye contact: Fair. Behavior: Cooperative, somewhat irritable. Speech: Fragmented, however length has improved. Mood: Pleasant. Affect: Blunted. Thought process: Poverty of thought with possible thought blocking Thought Content: Patient will not discuss. Cognition: A&O x3. Insight: Poor. Judgment: Poor. Interventions PRN's used: Ativan. Therapeutic interventions: Maintained a safe and supportive environment, ensured contract for safety, provided clear and simple instructions, provided direction and encouragement regarding performance of ADLs, monitored behaviors and maintained clear boundaries, provided positive reinforcement for positive behaviors, monitored abrasions on fingers and obtained new order for ABTs r/t worsening area on pt's right middle finger, and maintained LOS. Restraints/seclusion/emergency medication: N/A Justification of Continued Inpatient Treatment: Per JEM Gaona pt. continues to require a safe and supportive environment, medications were recently increased. Clear boundaries need to be enforced along with positive reinforcement.
--- NOTE | 2021-08-04 07:21 | NUR ---
Reassessment: Pt w/ some improvement in PO intake, avg 47% of meals and ~ 60% of ONS while also consuming some snacks likely meeting minimum nutrient needs. Pt noted to need encouragement for ADLs and meals. [facility] 08/01. No change to nutrition recommendations at this time, will continue to monitor. Recs: 1. Continue Regular diet as tolerated 2. Ensure Enlive BID 3. Bowel care per rx 4. Weekly wts Addendum: 08/04/21 at [address] Amended: Links added.
[2021-08-04] MEDS: lactobacillus rhamnosus 10,000 MMU CELLS/CAPSULE PO SCH ×2 (07:56→20:01)
[2021-08-04] MEDS: ferrous sulfate 325mg tablet PO SCH (07:56)
[2021-08-04] MEDS: QUEtiapine 25mg tablet PO SCH ×4 (07:56→20:01)
[2021-08-04] MEDS: cephalexin 500mg capsule PO SCH ×3 (07:56→16:51)
[2021-08-04] MEDS: atorvastatin 20mg tablet PO SCH (07:56)
[2021-08-04] MEDS: zinc oxide ointment 30gm tube TP SCH ×2 (07:57→20:06)
[2021-08-04] MEDS: lactose-reduced food (Ensure Enlive) - 237ml bottle PO SCH ×2 (07:57→16:45)
[2021-08-04] MEDS: LORazepam 1 MG tablet PO PRN (15:41)
--- NOTE | 2021-08-04 17:04 | NUR ---
Nursing Progress Note: Legal hold: LPS Client on involuntary status for GD Report received from SREEDHAR Wright with use of SBAR. Why are they here: [facility] LPS conservatorship for Schizophrenia. Pt had escaped from this unit 4-5 days earlier. Pt walked back into the emergency room this morning. Pt has wounds to bilateral thumbs that could be cold weather injury and to L foot. Pt has been off of his meds since leaving. Pt immediately requests to go to lower level of care, return to [place] or leave today. Pt here for medication stabilization and placement. Assessment What has happened this shift: Patient is resting quietly in bed at the start of the shift. Eats breakfast in the community room and interacts very little with peers. Cooperative with medication and is pleasant stating, Thank you. Take care. Patient requires encouragement to take afternoon medications but is eventually cooperative. Continues on LOS for elopement risk. Isolates in his room much of the time and occasionally will pace the unit. Cooperative with 1:1 assessment. In the later afternoon the patient appears more anxious AEB requesting to leave/ pacing. Asks, You have loxatine? PRN Ativan offered and accepted which appears helpful. Patient spends the afternoon isolating in his room resting quietly in bed. S/I, H/I: Denies A/VH: Denies Sleep: 5.75 hours per sleep assessment, pt. naps intermittently throughout the day ADL's: Requires direction and encouragement Group attendance: No Were meds taken: Yes but requires encouragement Any med S/E: None observed or reported Mental Status Exam Appearance: Younger looking man, hair somewhat disheveled r/t lying in bed, dressed in green scrubs Eye contact: Good Behavior: Cooperative, fatigued, restless, and impulsive Speech: Disorganized, Fragmented Mood: Good. Appears euthymic Affect: Flat Thought process: Poverty of thought with possible thought blocking Thought Content: Wants to leave Cognition: A&O x2 to self and place Insight: Poor Judgment: Poor Interventions PRN's used: Ativan Therapeutic interventions: Maintained a safe and supportive environment, ensured contract for safety, provided clear and simple instructions, provided direction and encouragement regarding performance of ADLs, monitored behaviors and maintained clear boundaries, provided positive reinforcement for positive behaviors, monitored abrasions on fingers and obtained new order for ABTs r/t worsening area on pt's right middle finger, and maintained LOS. Restraints/seclusion/emergency medication: N/A Justification of Continued Inpatient Treatment: Per JEM Gaona pt. continues to require a safe and supportive environment, medications were recently increased. Clear boundaries need to be enforced along with positive reinforcement.
[2021-08-04 20:12] VITALS: BP 124/82
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
[2021-08-05] MEDS: cephalexin 500mg capsule PO SCH ×3 (07:57→17:39)
[2021-08-05] MEDS: atorvastatin 20mg tablet PO SCH (07:57)
[2021-08-05] MEDS: lactobacillus rhamnosus 10,000 MMU CELLS/CAPSULE PO SCH ×2 (07:57→21:35)
[2021-08-05] MEDS: ferrous sulfate 325mg tablet PO SCH (07:57)
[2021-08-05] MEDS: QUEtiapine 25mg tablet PO SCH ×4 (07:57→21:35)
[2021-08-05] MEDS: lactose-reduced food (Ensure Enlive) - 237ml bottle PO SCH ×2 (07:57→17:40)
[2021-08-05] MEDS: zinc oxide ointment 30gm tube TP SCH ×2 (07:58→20:00)
[2021-08-05 08:00] VITALS: BP 104/77
--- NOTE | 2021-08-05 17:50 | NUR ---
Nursing Progress Note: Legal hold: LPS Client on involuntary status for GD Report received from SREEDHAR Pierce with use of SBAR. Why they are here: Pt admitted to [facility] for [facility] health today on LPS conservatorship for Schizophrenia. Pt had escaped from this unit 4-5 days earlier. Pt walked back into the emergency room this morning. Pt has wounds to bilateral thumbs that could be cold weather injury and to L foot. Pt has been off of his meds since leaving. Pt immediately requests to go to lower level of care, return to [place] or leave today. Pt here for medication stabilization and placement. Assessment What has happened this shift: Patient is resting quietly in bed at the start of the shift. Continues to require LOS monitoring due to elopement risk. Upon awakening the patient paces the unit slowly and talks to staff. Speech is fragmented and disorganized but he is able to make his needs known. Perseverates on wanting to leave the unit. Cooperative with 1:1 assessment and medications. Continues to display ritualistic behaviors. He is guarded and frequently isolates in his room. Naps off and on in the afternoon. Requires some encouragement to take afternoon medications but is eventually compliant. S/I, H/I: Denies A/VH: Denies Sleep: Naps off and on throughout the day. ADL's: Requires direction and encouragement Group attendance: NA Were meds taken: Yes Any med S/E: None observed or reported Mental Status Exam Appearance: Younger looking man, hair somewhat disheveled r/t lying in bed, dressed in green scrubs Eye contact: Good Behavior: Cooperative, fatigued, restless, and impulsive Speech: Disorganized, Fragmented Mood: Good. Affect: Flat Thought process: Poverty of thought with possible thought blocking Thought Content: Wants to leave the unit Cognition: A&O x2 to self and place Insight: Poor Judgment: Poor Interventions PRN's used: None Therapeutic interventions: Maintained a safe and supportive environment, ensured contract for safety, provided clear and simple instructions, provided direction and encouragement regarding performance of ADLs, monitored behaviors and maintained clear boundaries, provided positive reinforcement for positive behaviors, monitored abrasions on fingers and obtained new order for ABTs r/t worsening area on pt's right middle finger, and maintained LOS. Restraints/seclusion/emergency medication: N/A Justification of Continued Inpatient Treatment: Per JEM Gaona pt. continues to require a safe and supportive environment, medications were recently increased. Clear boundaries need to be enforced along with positive reinforcement.
[2021-08-05 19:36] VITALS: BP 107/74
[2021-08-05] MEDS: OLANZapine 5mg rapidly disint. tablet PO PRN (21:35)
[2021-08-05] MEDS: LORazepam 1 MG tablet PO PRN (21:35)
[2021-08-06] MEDS: cephalexin 500mg capsule PO SCH
--- NOTE | 2021-08-06 04:40 | NUR ---
Nursing Progress Note: Legal hold: LPS Client on involuntary status for GD Report received from ELOY Berkowitz with use of SBAR. Why are they here: Pt admitted to [facility] for [facility] health today on LPS conservatorship for Schizophrenia. Pt had escaped from this unit 4-5 days earlier. Pt walked back into the emergency room this morning. Pt has wounds to bilateral thumbs that could be cold weather injury and to L foot. Pt has been off of his meds since leaving. Pt immediately requests to go to lower level of care, return to [place] or leave today. Pt here for medication stabilization and placement. Assessment What has happened this shift: Patient isolates in his room following shift change. Patient sits up when this health science writer enters room. Patient tells this health science writer he is "feeling fine." He denies S/I, H/I, or any hallucinations. He denies audible or visual hallucinations. Patient answers questions minimally. He is medication compliant. Patient does present with mild anxiety. Ativan was given. Patient is a line of sight because of elopement risk. This patient is more appropriate and cooperative this shift as compared to previous shifts where this health science writer cared for him. There were no outbursts this shift. Patient was more linear, he did not exhibit stuttering. S/I, H/I: Denies. A/VH: Denies. Sleep: Will tally at 0500 hours. ADL's: Requires direction and encouragement. Group attendance: No group on shift commander. Were meds taken: Yes with encouragement Any med S/E: None noted or reported. Mental Status Exam Appearance: Wearing green scrubs, disheveled looking. Eye contact: Fair. Behavior: Cooperative, somewhat irritable. Speech: Fragmented, however length has improved. Mood: Pleasant. Affect: Blunted. Thought process: Poverty of thought with possible thought blocking Thought Content: Patient will not discuss. Cognition: A&O x3. Insight: Poor. Judgment: Poor. Interventions PRN's used: Ativan. Therapeutic interventions: Maintained a safe and supportive environment, ensured contract for safety, provided clear and simple instructions, provided direction and encouragement regarding performance of ADLs, monitored behaviors and maintained clear boundaries, provided positive reinforcement for positive behaviors, monitored abrasions on fingers and obtained new order for ABTs r/t worsening area on pt's right middle finger, and maintained LOS. Restraints/seclusion/emergency medication: N/A Justification of Continued Inpatient Treatment: Per JEM Gaona pt. continues to require a safe and supportive environment, medications were recently increased. Clear boundaries need to be enforced along with positive reinforcement.
[2021-08-06 08:00] VITALS: BP 97/76
[2021-08-06] MEDS: lactobacillus rhamnosus 10,000 MMU CELLS/CAPSULE PO SCH ×2 (08:03→20:25)
[2021-08-06] MEDS: QUEtiapine 25mg tablet PO SCH ×4 (08:03→20:26)
[2021-08-06] MEDS: ferrous sulfate 325mg tablet PO SCH (08:03)
[2021-08-06] MEDS: lactose-reduced food (Ensure Enlive) - 237ml bottle PO SCH ×2 (08:03→17:16)
[2021-08-06] MEDS: atorvastatin 20mg tablet PO SCH (08:03)
[2021-08-06] MEDS: zinc oxide ointment 30gm tube TP SCH ×2 (08:04→20:25)
[2021-08-06] MEDS: cephalexin 250mg capsule PO SCH ×3 (08:54→23:49)
--- NOTE | 2021-08-06 17:49 | NUR ---
Nursing Progress Note: Legal hold: LPS Client on involuntary status for GD Report received from SREEDHAR Pierce with use of SBAR. Why they are here: [facility] on LPS conservatorship for Schizophrenia. Pt had escaped from this unit 4-5 days earlier. Pt walked back into the emergency room this morning. Pt has wounds to bilateral thumbs that could be cold weather injury and to L foot. Pt has been off of his meds since leaving. Pt immediately requests to go to lower level of care, return to [place] or leave today. Pt here for medication stabilization and placement. Assessment What has happened this shift: Patient is resting quietly in bed at the start of the shift. Cooperative with 1:1 assessment. Takes medication with encouragement. States, I want to get off that stuff. Speech is fragmented and mumbled but he is able to make needs known. Isolates to his room much of the day but eats meals in the community room. Interacts very little with peers. Some ritualistic behavior is noted. Treatment done as ordered to right middle finger. Bandage is placed but the patient pulls it off after only a few minutes. Redness to right middle finger is improving. Patient continues on Keflex with no ASE noted. S/I, H/I: Denies A/VH: Denies Sleep: Naps off and on throughout the day. ADL's: Requires direction and encouragement Group attendance: No Were meds taken: Yes Any med S/E: None observed or reported Mental Status Exam Appearance: Younger looking man, hair somewhat disheveled r/t lying in bed, dressed in green unit scrubs. Eye contact: Good Behavior: Cooperative, fatigued, restless, and impulsive Speech: Disorganized, Fragmented Mood: Good. Affect: Flat Thought process: Poverty of thought with possible thought blocking Thought Content: Wants to be a free man. Cognition: A&O x2 to self and place Insight: Poor Judgment: Poor Interventions PRN's used: None Therapeutic interventions: Maintained a safe and supportive environment, ensured contract for safety, provided clear and simple instructions, provided direction and encouragement regarding performance of ADLs, monitored behaviors and maintained clear boundaries, provided positive reinforcement for positive behaviors, monitored abrasions on fingers and obtained new order for ABTs r/t worsening area on pt's right middle finger, and maintained LOS. Restraints/seclusion/emergency medication: N/A Justification of Continued Inpatient Treatment: Per JEM Gaona pt. continues to require a safe and supportive environment, medications were recently increased. Clear boundaries need to be enforced along with positive reinforcement.
[2021-08-06 20:00] VITALS: BP 104/71
--- NOTE | 2021-08-07 05:39 | NUR ---
Nursing Progress Note: Legal hold: LPS Client on involuntary status for GD Report received from SREEDHAR Torres with use of SBAR. Why they are here: Pt admitted to [place] [facility] for Behavior[facility] health today on LPS conservatorship for Schizophrenia. Pt had escaped from this unit 4-5 days earlier. Pt walked back into the emergency room this morning. Pt has wounds to bilateral thumbs that could be cold weather injury and to L foot. Pt has been off of his meds since leaving. Pt immediately requests to go to lower level of care, return to [place] or leave today. Pt here for medication stabilization and placement. Assessment What has happened this shift: Patient is awake in his room at the start of the shift. Continues on LOS monitoring for elopement risk. Cooperative with 1:1 assessment and medication. Eats dinner in the community room and interacts very little with peers. Isolates to his room in the evening then goes to bed. S/I, H/I: Denies A/VH: Denies Sleep: See sleep assessment ADL's: Requires direction and encouragement Group attendance: NA Were meds taken: Yes Any med S/E: None observed or reported Mental Status Exam Appearance: Younger looking man, hair somewhat disheveled r/t lying in bed, dressed in green unit scrubs. Eye contact: Good Behavior: Cooperative, fatigued, restless, and impulsive Speech: Disorganized, Fragmented Mood: Good. Affect: Flat Thought process: Poverty of thought with possible thought blocking Thought Content: Meeting needs Cognition: A&O x2 to self and place Insight: Poor Judgment: Poor Interventions PRN's used: None Therapeutic interventions: Maintained a safe and supportive environment, ensured contract for safety, provided clear and simple instructions, provided direction and encouragement regarding performance of ADLs, monitored behaviors and maintained clear boundaries, provided positive reinforcement for positive behaviors, monitored abrasions on fingers and obtained new order for ABTs r/t worsening area on pt's right middle finger, and maintained LOS. Restraints/seclusion/emergency medication: N/A Justification of Continued Inpatient Treatment: Per JEM Gaona pt. continues to require a safe and supportive environment, medications were recently increased. Clear boundaries need to be enforced along with positive reinforcement.
[2021-08-07] MEDS: lactose-reduced food (Ensure Enlive) - 237ml bottle PO SCH ×2 (07:30→18:12)
[2021-08-07 08:00] VITALS: BP 112/70
[2021-08-07] MEDS: atorvastatin 20mg tablet PO SCH (08:48)
[2021-08-07] MEDS: QUEtiapine 25mg tablet PO SCH ×4 (08:48→19:50)
[2021-08-07] MEDS: ferrous sulfate 325mg tablet PO SCH (08:48)
[2021-08-07] MEDS: lactobacillus rhamnosus 10,000 MMU CELLS/CAPSULE PO SCH ×2 (08:48→19:50)
[2021-08-07] MEDS: cephalexin 250mg capsule PO SCH ×2 (08:48→16:41)
[2021-08-07] MEDS: zinc oxide ointment 30gm tube TP SCH ×2 (08:49→20:04)
--- NOTE | 2021-08-07 16:47 | NUR ---
Pt appears to have a contact dermatitis on both upper extremities that are exposed. Nothing is observed or noted on his torso, back or LE that are all covered with his hospital scrubs.
--- NOTE | 2021-08-07 16:51 | NUR ---
Nursing Progress Note: Legal hold: LPS Client on involuntary status for GD Report received from SREEDHAR Ramos with use of SBAR. Why they are here: [facility] LPS conservatorship for Schizophrenia. Pt had escaped from this unit 4-5 days earlier. Pt walked back into the emergency room this morning. Pt has wounds to bilateral thumbs that could be cold weather injury and to L foot. Pt has been off of his meds since leaving. Pt immediately requests to go to lower level of care, return to [place] or leave today. Pt here for medication stabilization and placement. Assessment What has happened this shift: Pt is resting quietly in bed at the start of the shift. He is cooperative with 1:1 assessment and taking his oral medications. Towards the end of the shift pt is noticed to have a contact dermatitics on his upper extremities only. Isolates to his room much of the day. Some ritualistic behavior is noted. Zinc oitment applied as prescribed. Again appeared to walk towards exit door near the laundry room. S/I, H/I: Denies A/VH: Denies Sleep: Naps off and on throughout the day. ADL's: Requires direction Group attendance: No Were meds taken: Yes Any med S/E: None observed or reported Mental Status Exam Appearance: Disheveled brown hair wearing green usit scrubs Eye contact: Good Behavior: restless, and impulsive Speech: Disorganized, Fragmented Mood: Good. Affect: Flat Thought process: Poverty of thought with possible thought blocking Thought Content: Wants "a normal life." Cognition: A&O x2 to self and place Insight: Poor Judgment: Poor Interventions PRN's used: None Therapeutic interventions: Provided 1:1 assessment with therapeutic communication, provided redirection as needed, medication administration/education/monitoring, and maintained LOS. Restraints/seclusion/emergency medication: N/A Justification of Continued Inpatient Treatment: Per JEM Gaona pt. continues to require a safe and supportive environment, medications were recently increased. Clear boundaries need to be enforced along with positive reinforcement.
[2021-08-07 19:33] VITALS: BP 108/74
[2021-08-07] MEDS: temazepam 15mg capsule PO PRN (19:49)
[2021-08-07] MEDS: LORazepam 1 MG tablet PO PRN (19:49)
[2021-08-07] MEDS: triamcinolone acet 0.1% cream 15gm TP SCH (19:56)
--- NOTE | 2021-08-07 23:44 | NUR ---
Nursing Progress Note: Legal hold: LPS Client on involuntary status for GD Report received from SREEDHAR Torres with use of SBAR. Why they are here: Pt admitted to [facility] for Behavior[facility] health today on LPS conservatorship for Schizophrenia. Pt had escaped from this unit 4-5 days earlier. Pt walked back into the emergency room this morning. Pt has wounds to bilateral thumbs that could be cold weather injury and to L foot. Pt has been off of his meds since leaving. Pt immediately requests to go to lower level of care, return to [place] or leave today. Pt here for medication stabilization and placement. Assessment What has happened this shift: Pt is in bed at the start of the shift. He is cooperative with 1:1 assessment and taking his oral medications. Pt stayed in his room with out any issues no door checking this shift. S/I, H/I: Denies A/VH: Denies Sleep: See sleep assessment. ADL's: Requires direction Group attendance: No Were meds taken: Yes Any med S/E: None observed or reported Mental Status Exam Appearance: Disheveled brown hair wearing green usit scrubs Eye contact: Good Behavior: restless, and impulsive Speech: Disorganized, Fragmented Mood: Good. Affect: Flat Thought process: Poverty of thought with possible thought blocking Thought Content: Wants "a normal life." Cognition: A&O x2 to self and place Insight: Poor Judgment: Poor Interventions PRN's used: None Therapeutic interventions: Provided 1:1 assessment with therapeutic communication, provided redirection as needed, medication administration/education/monitoring, and maintained LOS. Restraints/seclusion/emergency medication: N/A Justification of Continued Inpatient Treatment: Per JEM Gaona pt. continues to require a safe and supportive environment, medications were recently increased. Clear boundaries need to be enforced along with positive reinforcement.
[2021-08-08] MEDS: cephalexin 250mg capsule PO SCH ×3 (00:05→16:23)
[2021-08-08] MEDS: ferrous sulfate 325mg tablet PO SCH (07:52)
[2021-08-08] MEDS: QUEtiapine 25mg tablet PO SCH ×4 (07:52→20:06)
[2021-08-08] MEDS: lactobacillus rhamnosus 10,000 MMU CELLS/CAPSULE PO SCH ×2 (07:52→20:07)
[2021-08-08] MEDS: atorvastatin 20mg tablet PO SCH (07:52)
[2021-08-08] MEDS: zinc oxide ointment 30gm tube TP SCH ×2 (08:00→20:20)
[2021-08-08] MEDS: lactose-reduced food (Ensure Enlive) - 237ml bottle PO SCH ×2 (08:02→18:12)
[2021-08-08] MEDS: triamcinolone acet 0.1% cream 15gm TP SCH ×2 (08:48→20:00)
--- NOTE | 2021-08-08 17:41 | NUR ---
Nursing Progress Note: Legal hold: LPS Client on involuntary status for GD Report received from SREEDHAR Wright with use of SBAR. Why they are here: [facility] LPS conservatorship for Schizophrenia. Pt had escaped from this unit 4-5 days earlier. Pt walked back into the emergency room this morning. Pt has wounds to bilateral thumbs that could be cold weather injury and to L foot. Pt has been off of his meds since leaving. Pt immediately requests to go to lower level of care, return to [place] or leave today. Pt here for medication stabilization and placement. Assessment What has happened this shift: RN received pt. asleep in bed at start of shift. Pt. is on 1:1 for elopement risk. Pt. awoke for breakfast and took all medications. 1:1 done at bedside, pt. denies all psych symptoms. Pt. states, I want to go to a residential today. Pt. at the nurses station frequently asking to be discharged. Pt. called his conservator asking to be transferred to a residential. Pt. attempted to elope through double doors and 1:1 had to aura pt., getting between him and the door. Pt. placed in seclusion from 0920 to 1040. Pt. was calm for the rest of the afternoon, isolating to his room and resting in bed. S/I, H/I: Denies A/VH: Denies Sleep: Pt. slept 8.25 hrs on NOC shift and napped intermittently on day shift. ADL's: Requires direction Group attendance: NA Were meds taken: Yes Any med S/E: Denies, none observed. Mental Status Exam Appearance: Disheveled, wearing green scrubs. Eye contact: WNL Behavior: restless, impulsive, attempting to elope. Speech: Disorganized, Fragmented Mood: Agitated. Affect: Blunted Thought process: Disorganized, thought blocking. Thought Content: Perseverates on discharge. Cognition: A&O x2 (to self and place) Insight: Poor Judgment: Poor Interventions PRN's used: None Therapeutic interventions: Provided 1:1 assessment with therapeutic communication, provided redirection as needed, medication administration/education/monitoring, and maintained LOS. Restraints/seclusion/emergency medication: N/A Justification of Continued Inpatient Treatment: Per JEM Gaona pt. continues to require a safe and supportive environment, medications were recently increased. Clear boundaries need to be enforced along with positive reinforcement.
[2021-08-08 20:21] VITALS: BP 104/67
[2021-08-08] MEDS: LORazepam 1 MG tablet PO PRN (20:21)
[2021-08-08] MEDS: OLANZapine 5mg rapidly disint. tablet PO PRN (20:21)
[2021-08-08] MEDS: temazepam 15mg capsule PO PRN (20:21)
--- NOTE | 2021-08-08 23:03 | NUR ---
Nursing Progress Note: Legal hold: LPS Client on involuntary status for GD Report received from SREEDHAR Berkowitz with use of SBAR. Why they are here: Pt admitted to [facility] for [facility] health today on LPS conservatorship for Schizophrenia. Pt had escaped from this unit 4-5 days earlier. Pt walked back into the emergency room this morning. Pt has wounds to bilateral thumbs that could be cold weather injury and to L foot. Pt has been off of his meds since leaving. Pt immediately requests to go to lower level of care, return to [place] or leave today. Pt here for medication stabilization and placement. Assessment What has happened this shift: Pt was in bed at shift change. pt denies having any pain or concerns but is endorsing ANDRADE. When asked what they are saying, pt replied, hi. Pt isolated to his room all evening, with a sitter outside his room. S/I, H/I: Denies A/VH: endorses voices Sleep: See sleep assessment. ADL's: Requires direction Group attendance: No Were meds taken: Yes Any med S/E: None observed or reported Mental Status Exam Appearance: Disheveled brown hair wearing green usit scrubs Eye contact: Good Behavior: restless, and impulsive Speech: Disorganized, Fragmented Mood: Good. Affect: Flat Thought process: Poverty of thought with possible thought blocking Thought Content: Wants "a normal life." Cognition: A&O x2 to self and place Insight: Poor Judgment: Poor Interventions PRN's used: None Therapeutic interventions: Provided 1:1 assessment with therapeutic communication, provided redirection as needed, medication administration/education/monitoring, and maintained LOS. Restraints/seclusion/emergency medication: N/A Justification of Continued Inpatient Treatment: Per JEM Gaona pt. continues to require a safe and supportive environment, medications were recently increased. Clear boundaries need to be enforced along with positive reinforcement.
[2021-08-09] MEDS: lactose-reduced food (Ensure Enlive) - 237ml bottle PO SCH ×2 (07:30→17:47)
[2021-08-09] MEDS: cephalexin 250mg capsule PO SCH ×3 (07:37→16:00)
--- NOTE | 2021-08-09 07:37 | NUR ---
Reassessment: Pt w/ variable PO intake, avg 27% x 12 meals and ~ 32% of ONS while also consuming some snacks partially meeting needs at this time. Pt noted to be independent with meals now though remains A&O x 2. LBM 08/01. No change to nutrition recommendations at this time, will continue to monitor. Recs: 1. Continue Regular diet as tolerated; encourage PO intake 2. Ensure Enlive BID 3. Bowel care per rx 4. Weekly wts Addendum: 08/09/21 at [address] Amended: Links added.
[2021-08-09] MEDS: QUEtiapine 25mg tablet PO SCH ×4 (07:38→20:11)
[2021-08-09] MEDS: ferrous sulfate 325mg tablet PO SCH (07:38)
[2021-08-09] MEDS: lactobacillus rhamnosus 10,000 MMU CELLS/CAPSULE PO SCH ×2 (07:38→20:11)
[2021-08-09] MEDS: atorvastatin 20mg tablet PO SCH (07:38)
--- NOTE | 2021-08-09 07:38 | NUR ---
Reassessment: Pt w/ variable PO intake, avg 27% x 12 meals and ~ 32% of ONS while also consuming some snacks partially meeting needs at this time. Pt noted to be independent with meals now though remains A&O x 2. LBM 08/01. No change to nutrition recommendations at this time, will continue to monitor. Recs: 1. Continue Regular diet as tolerated; encourage PO intake 2. Ensure Enlive BID; consider TID if ONS acceptance improves 3. Bowel care per rx 4. Weekly wts Addendum: 08/09/21 at [address] Amended: Links added.
[2021-08-09 07:48] VITALS: BP 114/74
[2021-08-09] MEDS: triamcinolone acet 0.1% cream 15gm TP SCH ×2 (08:00→20:11)
[2021-08-09] MEDS: zinc oxide ointment 30gm tube TP SCH ×2 (08:00→20:12)
--- NOTE | 2021-08-09 09:33 | NUR ---
WOUND INFECTION EDUCATION PROVIDED BY WOUND CARE 1. Patient instructed to call their primary doctor, or go the ED immediately if any of the following symptoms occur: * Increased pain in wound * Increase in drainage from the wound * Redness in the skin surrounding the wound * Warmth in the skin surrounding the wound * Bleeding from the wound * Temperature of 101 or greater 2. If any of these occur while in the hospital tell a nurse immediately. Addendum: 08/09/21 at 0933 by Viridiana Mejia RN Amended: Links added.
[2021-08-09] MEDS: OLANZapine 5mg rapidly disint. tablet PO PRN (12:30)
--- NOTE | 2021-08-09 17:38 | NUR ---
Nursing Progress Note: Legal hold: LPS Client on involuntary status for GD Report received from SREEDHAR Alexis with use of SBAR. Why they are here: Pt admitted to [facility] today on LPS conservatorship for Schizophrenia. Pt had escaped from this unit 4-5 days earlier. Pt walked back into the emergency room this morning. Pt has wounds to bilateral thumbs that could be cold weather injury and to L foot. Pt has been off of his meds since leaving. Pt immediately requests to go to lower level of care, return to [facility] or leave today. Pt here for medication stabilization and placement. Assessment What has happened this shift: RN received pt. asleep in bed at start of shift. Pt. is on 1:1 for elopement risk. Pt. awoke for breakfast and took all medications. 1:1 done at bedside, pt. denies all mental health symptoms. Pt. is pleasant, stating, Thanks for helping me. Pt. requested a hair cut. Pt. isolated to his room most of the day, coming out for meals and snacks. Pt. continues to request discharge and asks multiple times from various staff if they can discharge him. S/I, H/I: Denies A/VH: Denies Sleep: Pt. slept 6.5 hrs on NOC shift and napped intermittently on day shift. ADL's: Requires direction. Pt. showered today. Group attendance: NA. Were meds taken: Yes Any med S/E: Denies, none observed. Mental Status Exam Appearance: Clean, wearing green scrubs. Eye contact: WNL Behavior: Cooperative, impulsive. Speech: Disorganized, Fragmented. Mood: Agitated. Affect: Blunted. Thought process: Disorganized, thought blocking. Thought Content: Perseverates on discharge. Cognition: A&O x2 (to self and place) Insight: Poor Judgment: Poor Interventions PRN's used: None Therapeutic interventions: Provided 1:1 assessment with therapeutic communication, provided redirection as needed, medication administration/education/monitoring, and maintained LOS. Restraints/seclusion/emergency medication: N/A Justification of Continued Inpatient Treatment: Per JEM Gaona pt. continues to require a safe and supportive environment, medications were recently increased. Clear boundaries need to be enforced along with positive reinforcement.
[2021-08-09 20:08] VITALS: BP 112/80
[2021-08-09] MEDS: temazepam 15mg capsule PO PRN (20:11)
--- NOTE | 2021-08-10 03:36 | NUR ---
Nursing Progress Note: Legal hold: LPS Client on involuntary status for GD Report received from SREEDHAR Berkowitz with use of SBAR. Why they are here: Pt admitted to [facility] today on LPS conservatorship for Schizophrenia. Pt had escaped from this unit 4-5 days earlier. Pt walked back into the emergency room this morning. Pt has wounds to bilateral thumbs that could be cold weather injury and to L foot. Pt has been off of his meds since leaving. Pt immediately requests to go to lower level of care, return to [place] or leave today. Pt here for medication stabilization and placement. Assessment What has happened this shift: Pt continues to isolate during the evening shift, mostly lying in bed. Pt was cooperative for assessments and med pass, denying all mh symptoms. Pt receives his medication in apple sauce and prefers it that way. Pt continues to have a los due to his elopement risk. S/I, H/I: Denies A/VH: endorses voices Sleep: See sleep assessment. ADL's: Requires direction Group attendance: No Were meds taken: Yes Any med S/E: None observed or reported Mental Status Exam Appearance: Disheveled brown hair wearing green usit scrubs Eye contact: Good Behavior: restless, and impulsive Speech: Disorganized, Fragmented Mood: Good. Affect: Flat Thought process: Poverty of thought with possible thought blocking Thought Content: Wants "a normal life." Cognition: A&O x2 to self and place Insight: Poor Judgment: Poor Interventions PRN's used: None Therapeutic interventions: Provided 1:1 assessment with therapeutic communication, provided redirection as needed, medication administration/education/monitoring, and maintained LOS. Restraints/seclusion/emergency medication: N/A Justification of Continued Inpatient Treatment: Per JEM Gaona pt. continues to require a safe and supportive environment, medications were recently increased. Clear boundaries need to be enforced along with positive reinforcement.
[2021-08-10] MEDS: lactobacillus rhamnosus 10,000 MMU CELLS/CAPSULE PO SCH ×2 (07:26→20:19)
[2021-08-10] MEDS: ferrous sulfate 325mg tablet PO SCH (07:27)
[2021-08-10] MEDS: atorvastatin 20mg tablet PO SCH (07:27)
[2021-08-10] MEDS: QUEtiapine 25mg tablet PO SCH ×4 (07:27→20:19)
[2021-08-10] MEDS: cephalexin 250mg capsule PO SCH ×2 (07:27)
[2021-08-10] MEDS: lactose-reduced food (Ensure Enlive) - 237ml bottle PO SCH ×2 (07:30→18:23)
[2021-08-10 07:53] VITALS: BP 107/67
[2021-08-10] MEDS: zinc oxide ointment 30gm tube TP SCH ×2 (08:00→17:53)
[2021-08-10] MEDS: triamcinolone acet 0.1% cream 15gm TP SCH ×2 (08:00→20:00)
--- NOTE | 2021-08-10 17:26 | NUR ---
Nursing Progress Note: Legal hold: LPS Client on involuntary status for GD Report received from SREEDHAR Alexis with use of SBAR. Why they are here: Pt admitted to [facility] for [facility] today on LPS conservatorship for Schizophrenia. Pt had escaped from this unit 4-5 days earlier. Pt walked back into the emergency room this morning. Pt has wounds to bilateral thumbs that could be cold weather injury and to L foot. Pt has been off of his meds since leaving. Pt immediately requests to go to lower level of care, return to [facility] or leave today. Pt here for medication stabilization and placement. Assessment What has happened this shift: RN received pt. asleep in bed at start of shift. Pt. is on 1:1 for elopement risk. Pt. awoke for breakfast and took all medications. 1:1 done at bedside, Pt. reports +AH, states the voices are talking so fast he cannot understand them. Pt. perseverates on discharge asking multiple staff if he can be discharged today. Pt. reports he is frustrated with his 1:1 and reminded of his elopement hx. Pt. isolated to his room most of the day but did not appear to be sleeping. Pt. paced halls in the afternoon. S/I, H/I: Denies A/VH: Denies Sleep: Pt. slept 7.75 hrs on NOC shift and did not appear to nap during day shift. ADL's: Requires prompting. Pt. showered today. Group attendance: No Were meds taken: Yes Any med S/E: Denies, none observed. Mental Status Exam Appearance: Clean, wearing green scrubs. Eye contact: WNL Behavior: Cooperative, impulsive. Speech: Start/stop rhythm. Mood: Irritated. Affect: Blunted. Thought process: Thought blocking. Thought Content: Perseverates on discharge. Cognition: A&O x2 (to self and place) Insight: Poor Judgment: Poor Interventions PRN's used: None Therapeutic interventions: Provided 1:1 assessment with therapeutic communication, provided redirection as needed, medication administration/education/monitoring, and maintained LOS. Restraints/seclusion/emergency medication: N/A Justification of Continued Inpatient Treatment: Per JEM Gaona pt. continues to require a safe and supportive environment, medications were recently increased. Clear boundaries need to be enforced along with positive reinforcement.
[2021-08-10 19:48] VITALS: BP 108/72
[2021-08-10] MEDS: temazepam 15mg capsule PO PRN (20:21)
--- NOTE | 2021-08-10 22:12 | NUR ---
Nursing Progress Note: Legal hold: LPS Client on involuntary status for GD Report received from SREEDHAR Berkowitz with use of SBAR. Why they are here: Pt admitted to [facility] for [facility] health today on LPS conservatorship for Schizophrenia. Pt had escaped from this unit 4-5 days earlier. Pt walked back into the emergency room this morning. Pt has wounds to bilateral thumbs that could be cold weather injury and to L foot. Pt has been off of his meds since leaving. Pt immediately requests to go to lower level of care, return to [facility] or leave today. Pt here for medication stabilization and placement. Assessment What has happened this shift: Patient self isolated in room all shift and refused to participate in snack. Patient refused medications twice then later ask nurse for meds. Patient took all medications and went to sleep. S/I, H/I: Denies A/VH: Denies Sleep: See sleep assessment. ADL's: Requires direction Group attendance: No Were meds taken: Yes Any med S/E: None observed or reported Mental Status Exam Appearance: Disheveled brown hair wearing green usit scrubs Eye contact: Good Behavior: restless, and impulsive Speech: Disorganized, Fragmented Mood: Good. Affect: Flat Thought process: Poverty of thought with possible thought blocking Thought Content: Wants to be left alone Cognition: A&O x2 to self and place Insight: Poor Judgment: Poor Interventions PRN's used: None Therapeutic interventions: Provided 1:1 assessment with therapeutic communication, provided redirection as needed, medication administration/education/monitoring, and maintained LOS. Restraints/seclusion/emergency medication: N/A Justification of Continued Inpatient Treatment: Per JEM Gaona pt. continues to require a safe and supportive environment, medications were recently increased. Clear boundaries need to be enforced along with positive reinforcement.
[2021-08-11] MEDS: lactose-reduced food (Ensure Enlive) - 237ml bottle PO SCH ×2 (07:18→17:19)
[2021-08-11] MEDS: QUEtiapine 25mg tablet PO SCH ×4 (07:18→21:00)
[2021-08-11] MEDS: lactobacillus rhamnosus 10,000 MMU CELLS/CAPSULE PO SCH ×2 (07:18→20:36)
[2021-08-11] MEDS: atorvastatin 20mg tablet PO SCH (07:19)
[2021-08-11] MEDS: ferrous sulfate 325mg tablet PO SCH (07:19)
[2021-08-11] MEDS: zinc oxide ointment 30gm tube TP SCH ×2 (07:19→20:00)
[2021-08-11] MEDS: triamcinolone acet 0.1% cream 15gm TP SCH ×2 (07:19→20:00)
[2021-08-11 07:43] VITALS: BP 108/69
--- NOTE | 2021-08-11 14:40 | NUR ---
Sent placement packet to [place] office. JAYCEE Aiken
--- NOTE | 2021-08-11 17:15 | NUR ---
Nursing Progress Note: Legal hold: LPS Client on involuntary status for GD Report received from SREEDHAR Alexis with use of SBAR. Why they are here: [facility] on LPS conservatorship for Schizophrenia. Pt had escaped from this unit 4-5 days earlier. Pt walked back into the emergency room this morning. Pt has wounds to bilateral thumbs that could be cold weather injury and to L foot. Pt has been off of his meds since leaving. Pt immediately requests to go to lower level of care, return to [facility] or leave today. Pt here for medication stabilization and placement. Assessment What has happened this shift: Patient is resting quietly in bed at the start of the shift. Arises prior to breakfast. Paces the unit and sits in the community room. Remains on LOS monitoring r/t exit seeking behavior. Cooperative with 1:1 assessment. States, I dont want the Seroquel. Requires encouragement to take medications but is eventually cooperative. Initially refuses cream to hand wounds stating, Im good. But then offers his hand for tx. Some ritualistic behavior noted; runs a few steps then stops, jumps in the air, hesitates movements. After breakfast the patient perseverates on leaving and is exit seeking. Unable to redirect while in the hallway so the patient is redirected to his room where he calms down and rests in bed until snack time. Eats snack in the community room. After lunch the patient is noted standing in his doorway appealing to staff that passes by to assist him to discharge. States, Id like to go fly a kite or something recreational. Isolates in his room in the afternoon. S/I, H/I: Denies A/VH: Denies Sleep: Takes brief naps during the day ADL's: Requires prompting at times Group attendance: No Were meds taken: Yes, with encouragement Any med S/E: None observed or reported Mental Status Exam Appearance: Young thin man with short hair shaved on sides, clean, somewhat disheveled from sleep, wearing green unit scrubs Eye contact: Intense Behavior: Cooperative, restless, impulsive Speech: Disorganized, Start/stop rhythm. Mood: Im Good. Affect: Blunted Thought process: Goal oriented, hesitant, possible thought blocking Thought Content: Perseverates on wanting to leave Cognition: A&O x2 (to self and place) Insight: Poor Judgment: Poor Interventions PRN's used: None Therapeutic interventions: Provided 1:1 assessment with therapeutic communication, provided redirection as needed, medication administration/education/monitoring, and maintained LOS. Restraints/seclusion/emergency medication: N/A Justification of Continued Inpatient Treatment: Per JEM Gaona pt. continues to require a safe and supportive environment, medications were recently increased. Clear boundaries need to be enforced along with positive reinforcement.
[2021-08-11 19:00] VITALS: BP 116/81
[2021-08-11] MEDS: quetiapine 100mg tablet PO SCH (20:36)
--- NOTE | 2021-08-12 00:44 | NUR ---
Nursing Progress Note: Legal hold: LPS Client on involuntary status for GD Report received from SREEDHAR Garrett with use of SBAR. Why they are here: Pt admitted to [facility] for [facility] today on LPS conservatorship for Schizophrenia. Pt had escaped from this unit 4-5 days earlier. Pt walked back into the emergency room this morning. Pt has wounds to bilateral thumbs that could be cold weather injury and to L foot. Pt has been off of his meds since leaving. Pt immediately requests to go to lower level of care, return to [facility] or leave today. Pt here for medication stabilization and placement. Assessment What has happened this shift: Patient was found standing in doorway at beginning of shift. Patient spent most of the shift in his room self isolating until snack time. Patient participated in snack and was observed responding to internal voices. When asked what he was hearing patient told nurse to shut up and returned to his room. Nurse later attempted to give patient night medications. Patient kept going back and forth on wether he wanted them and was going to take them. Eventually patient took night medications. Patient was still awake at midnight and when nurse tried to offer patient medications to help him sleep , patient start yelling and saying racial slurs. Patient continues to be awake and monitored at this time. S/I, H/I: Denies A/VH: Denies Sleep: See sleep assessments ADL's: Requires prompting at times Group attendance: No Were meds taken: Yes, with encouragement Any med S/E: None observed or reported Mental Status Exam Appearance: Young thin man with short hair shaved on sides, clean, wearing green unit scrubs Eye contact: Intense Behavior: Cooperative, restless, impulsive Speech: Disorganized, Start/stop rhythm. Mood: Im Good. Affect: Blunted Thought process: Goal oriented, hesitant, possible thought blocking Thought Content: Perseverates on wanting to leave Cognition: A&O x2 (to self and place) Insight: Poor Judgment: Poor Interventions PRN's used: None Therapeutic interventions: Provided 1:1 assessment with therapeutic communication, provided redirection as needed, medication administration/education/monitoring, and maintained LOS. Restraints/seclusion/emergency medication: N/A Justification of Continued Inpatient Treatment: Per JEM Gaona pt. continues to require a safe and supportive environment, medications were recently increased. Clear boundaries need to be enforced along with positive reinforcement.
[2021-08-12] MEDS: lactobacillus rhamnosus 10,000 MMU CELLS/CAPSULE PO SCH ×2 (07:22→20:00)
[2021-08-12] MEDS: QUEtiapine 25mg tablet PO SCH ×4 (07:22→21:36)
[2021-08-12] MEDS: zinc oxide ointment 30gm tube TP SCH ×2 (07:22→20:00)
[2021-08-12] MEDS: atorvastatin 20mg tablet PO SCH (07:22)
[2021-08-12] MEDS: triamcinolone acet 0.1% cream 15gm TP SCH ×2 (07:22→20:00)
[2021-08-12] MEDS: ferrous sulfate 325mg tablet PO SCH (07:22)
[2021-08-12] MEDS: lactose-reduced food (Ensure Enlive) - 237ml bottle PO SCH ×2 (07:43→16:57)
[2021-08-12 07:54] VITALS: BP 110/77
--- NOTE | 2021-08-12 09:39 | NUR ---
PLACEMENT UPDATE Called Jozef's Public Guardian, Michelle, in inquire about the plan for him. Asked if there is a way for Jozef to get moved to another facility that is more secure so he won't be on a line of sight. Jozef being on a line of sight is going to prevent him from getting placed. Informed her that our staff seemed to think [facility] may be more secure. She reported she will ask [facility] office to send his packet to both [facility]. She reported they are having a meeting with mental health today to discuss the best course of action for Jozef. She reported his packet did go to [facility] as well. JAYCEE Aiken
--- NOTE | 2021-08-12 15:45 | NUR ---
F/u 08/12: Pt PO remains poor mostly 0-25% avg meals w/ rare 75-100% for single meal. PO Ensure Enlive BIDBD 57% avg intake past 3.5 days w/ occasional refusal participating in snacks per EMR. Overall partially meeting needs w/ snacks/ONS/meals. CALI d/w RN regarding liberalziing to regular diet from current vegetarian if MD agreeable as previously diets never on vegetarian diet. LBM 08/12. Will continue to monitor. Recs: 1. Continue Regular diet as tolerated; encourage PO intake 2. Ensure Enlive BID; consider TID if ONS acceptance improves 3. Bowel care per rx 4. Weekly wts Addendum: 08/12/21 at [address] Amended: Links added.
--- NOTE | 2021-08-12 17:29 | NUR ---
Nursing Progress Note: Legal hold: LPS Client on involuntary status for GD Report received from SREEDHAR Pierce with use of SBAR. Why they are here: [facility] LPS conservatorship for Schizophrenia. Pt had escaped from this unit 4-5 days earlier. Pt walked back into the emergency room this morning. Pt has wounds to bilateral thumbs that could be cold weather injury and to L foot. Pt has been off of his meds since leaving. Pt immediately requests to go to lower level of care, return to [place] or leave today. Pt here for medication stabilization and placement. Assessment What has happened this shift: Patient resting quietly in bed at the start of the shift. Awakens prior to breakfast, walks the bernard then returns to bed. Cooperative with 1:1 assessment and morning medications. Resistive to having cream put on his hand wounds but is cooperative after prompting. Wounds continue to improve and no s/sx infection is noted. Continues on LOS monitoring for elopement risk. Eats breakfast in the community room and interacts appropriately with staff and peers. After breakfast the patient returns to his room. Rests in bed at times with eyes open. Does not appear to be sleeping. Patient will come out and walk to unit at times. Continues to perseverate on wanting to discharge but is able to be redirected. S/I, H/I: Denies A/VH: Denies Sleep: 1 hour in the morning ADL's: Requires prompting at times Group attendance: No Were meds taken: Yes, with encouragement Any med S/E: None observed or reported Mental Status Exam Appearance: Young thin man with short hair shaved on sides, clean, somewhat disheveled from sleep, wearing green unit scrubs Eye contact: Intense Behavior: Cooperative, restless, impulsive Speech: Disorganized, Start/stop rhythm. Mood: Good. Affect: Blunted Thought process: Goal oriented, hesitant, possible thought blocking Thought Content: Perseverates on wanting to leave Cognition: A&O x2 (to self and place) Insight: Poor Judgment: Poor Interventions PRN's used: None Therapeutic interventions: Provided 1:1 assessment with therapeutic communication, provided redirection as needed, medication administration/education/monitoring, and maintained LOS. Restraints/seclusion/emergency medication: N/A Justification of Continued Inpatient Treatment: Per Jimenez, PA pt. continues to require a safe and supportive environment, medications were recently increased. Clear boundaries need to be enforced along with positive reinforcement.
[2021-08-12 19:00] VITALS: BP 128/98
[2021-08-12] MEDS: quetiapine 100mg tablet PO SCH (21:36)
--- NOTE | 2021-08-13 01:59 | NUR ---
5150 NOTE: REASON FOR ADMISSION: Client is unable to formulate a viable plan for food, usp, and clothing. Client has history of numerous psychiatric admissions.
--- NOTE | 2021-08-13 05:18 | NUR ---
Nursing Progress Note: Legal hold: LPS Client on involuntary status for GD Report received from SREEDHAR Garrett with use of SBAR. Why they are here: Client is unable to formulate a viable plan for food, alf, and clothing. Client has history of numerous psychiatric admissions. Assessment What has happened this shift: Patient was seen sitting on edge of bed at beginning of shift. Patient stayed in his room until snack time. Patient refused to sit in community room and chose to go back to his room. Patient had been given night medications, patient was hesitant but eventually took the medication. Patient was up periodically throughout the night. Patient continues to be monitored. S/I, H/I: Denies A/VH: Denies Sleep: See sleep assessment ADL's: Requires prompting at times Group attendance: No Were meds taken: Yes, with encouragement Any med S/E: None observed or reported Mental Status Exam Appearance: Young thin man with short hair shaved on sides wearing green unit scrubs Eye contact: Intense Behavior: Cooperative, restless, impulsive Speech: Disorganized, Start/stop rhythm. Mood: Good. Affect: Blunted Thought process: Goal oriented, hesitant, possible thought blocking Thought Content: Perseverates on wanting to leave Cognition: A&O x2 (to self and place) Insight: Poor Judgment: Poor Interventions PRN's used: None Therapeutic interventions: Provided 1:1 assessment with therapeutic communication, provided redirection as needed, medication administration/education/monitoring, and maintained LOS. Restraints/seclusion/emergency medication: N/A Justification of Continued Inpatient Treatment: Per JEM Gaona pt. continues to require a safe and supportive environment, medications were recently increased. Clear boundaries need to be enforced along with positive reinforcement.
[2021-08-13] MEDS: lactose-reduced food (Ensure Enlive) - 237ml bottle PO SCH ×2 (07:30→17:30)
[2021-08-13 08:00] VITALS: BP 115/81
[2021-08-13] MEDS: zinc oxide ointment 30gm tube TP SCH ×2 (08:00→20:00)
[2021-08-13] MEDS: ferrous sulfate 325mg tablet PO SCH (08:35)
[2021-08-13] MEDS: atorvastatin 20mg tablet PO SCH (08:35)
[2021-08-13] MEDS: QUEtiapine 25mg tablet PO SCH ×4 (08:35→20:36)
[2021-08-13] MEDS: lactobacillus rhamnosus 10,000 MMU CELLS/CAPSULE PO SCH ×2 (08:35→20:36)
[2021-08-13] MEDS: triamcinolone acet 0.1% cream 15gm TP SCH ×2 (08:38→20:37)
--- NOTE | 2021-08-13 17:09 | NUR ---
Nursing Progress Note: Legal hold: LPS Client on involuntary status for GD Report received from SREEDHAR Ramos with use of SBAR. Why they are here: Pt admitted to [facility] for [facility] health today on LPS conservatorship for Schizophrenia. Pt had escaped from this unit 4-5 days earlier. Pt walked back into the emergency room this morning. Pt has wounds to bilateral thumbs that could be cold weather injury and to L foot. Pt has been off of his meds since leaving. Pt immediately requests to go to lower level of care, return to [place] or leave today. Pt here for medication stabilization and placement. Assessment What has happened this shift: RN received pt. asleep in bed at start of shift. Pt. is on 1:1 for elopement risk. Pt. awoke for breakfast and took all medications. 1:1 done at bedside, Pt has relatively pleasant all shift. Pt continues to have some quirky/OCD type movements, but is able to complete tasks. Pt does not eat much of his meals, but did eat snacks. Pt dropped cup of coffee on the floor once today, but with encouragement, he cleaned it up. S/I, H/I: Denies A/VH: Denies Sleep: Pt. slept 7.75 hrs on NOC shift and did not appear to nap during day shift. ADL's: Requires prompting Group attendance: No Were meds taken: Yes Any med S/E: Denies, none observed. Mental Status Exam Appearance: Clean, wearing green scrubs. Eye contact: WNL Behavior: Cooperative, impulsive. Speech: Start/stop rhythm. Mood: Irritated. Affect: Blunted. Thought process: Thought blocking. Thought Content: Perseverates on discharge. Cognition: A&O x2 (to self and place) Insight: Poor Judgment: Poor Interventions PRN's used: None Therapeutic interventions: Provided 1:1 assessment with therapeutic communication, provided redirection as needed, medication administration/education/monitoring, and maintained LOS. Restraints/seclusion/emergency medication: N/A Justification of Continued Inpatient Treatment: Per JEM Gaona pt. continues to require a safe and supportive environment, medications were recently increased. Clear boundaries need to be enforced along with positive reinforcement.
[2021-08-13 19:30] VITALS: BP 116/84
--- NOTE | 2021-08-13 19:30 | NUR ---
pt non cooperative in giving name or date Addendum: 08/13/21 at 2139 by Zayra Aleman RN Amended: Links added.
[2021-08-13] MEDS: quetiapine 100mg tablet PO SCH (20:36)
[2021-08-13] MEDS: docusate sod 100mg capsule PO SCH (20:36)
--- NOTE | 2021-08-14 04:16 | NUR ---
5150 NOTE: REASON FOR ADMISSION: Client is unable to formulate a viable plan for food, intermediate, and clothing. Client has history of numerous psychiatric admissions. Assessment; what happened this shift: pt found in bed at shift change; pt responded inappropriately to answering question of name & birthdate; unable to make sense of what he was saying; wearing green scub top & pants; fair eye contact; generally cooperative in initial physical assessment; took all pills with yogurt; no c/o's of pain or discomfort; pt isolates (in room this shift) with "line of sight" observation.
[2021-08-14 07:19] VITALS: BP 103/75
[2021-08-14] MEDS: lactose-reduced food (Ensure Enlive) - 237ml bottle PO SCH ×2 (07:30→17:30)
[2021-08-14] MEDS: zinc oxide ointment 30gm tube TP SCH ×2 (08:00→20:00)
[2021-08-14] MEDS: triamcinolone acet 0.1% cream 15gm TP SCH ×2 (08:00→20:00)
[2021-08-14] MEDS: lactobacillus rhamnosus 10,000 MMU CELLS/CAPSULE PO SCH ×2 (08:15→20:47)
[2021-08-14] MEDS: ferrous sulfate 325mg tablet PO SCH (08:15)
[2021-08-14] MEDS: docusate sod 100mg capsule PO SCH ×2 (08:15→20:48)
[2021-08-14] MEDS: atorvastatin 20mg tablet PO SCH (08:16)
[2021-08-14] MEDS: QUEtiapine 25mg tablet PO SCH ×4 (08:16→20:48)
--- NOTE | 2021-08-14 16:47 | NUR ---
Nursing Progress Note: Jozef Legal hold: LPS Client on involuntary status for GD Report received from SREEDHAR Ramos with use of SBAR. Why they are here: Pt admitted to [place] for Behavioral health on LPS conservatorship for Schizophrenia. Pt has escaped from this unit twice in July 2021. What has happened this shift: Pt. received sleeping in his room and actively monitored as LOS. Pt. awoke and received his medication without hesitation and 1:1 assessment completed at the bedside. Pt. denies SI, HI, A/VH. Pt. reports he was admitted to hospital Im here to find a place Pt. presents as disorganized and blunted AEB fragmented sentences and inability to complete an actual full sentences. Pt. spent most of his day in his room napping possible r/t poor sleep last night, ate meals in his room, no behaviors or door checking this shift. He did pace a few times in the bernard today and presents with a ritualistic stepping method at times. S/I, H/I: Denies A/VH: Denies Sleep: Pt. slept 4.75 hrs on NOC , napped throughout the day. ADL's: Requires prompting Group attendance: No Were meds taken: Yes Any med S/E: Denies, none observed. Mental Status Exam Appearance: Young male, pale and thin wearing green scrubs. Eye contact: fair Behavior: Cooperative, impulsive. Speech: Start/stop rhythm. Mood: Calm. Affect: Blunted. Thought process: Thought blocking. Thought Content: Perseverates on discharge. Cognition: A&O x2 (to self and place) Insight: Poor Judgment: Poor Interventions PRN's used: None Therapeutic interventions: Provided 1:1 assessment with therapeutic communication, provided redirection as needed, medication administration/education/monitoring, and maintained LOS. Restraints/seclusion/emergency medication: N/A Justification of Continued Inpatient Treatment: Per JEM Gaona pt. continues to require a safe and supportive environment, medications were recently increased. Clear boundaries need to be enforced along with positive reinforcement.
[2021-08-14 20:00] VITALS: BP 110/82
[2021-08-14] MEDS: quetiapine 100mg tablet PO SCH (20:48)
[2021-08-15] MEDS: LORazepam 1 MG tablet PO PRN (01:57)
--- NOTE | 2021-08-15 04:35 | NUR ---
Nursing Progress Note: Legal hold: LPS Client on involuntary status for GD Report received from SREEDHAR Torres with use of SBAR. Why they are here: Pt admitted to [place] for Behavioral health on LPS conservatorship for Schizophrenia. Pt has escaped from this unit twice in July 2021. What has happened this shift: Pt. in his room sleeping at start of shift. Continues to be LOS sitter in bernard outside of room. Pt. awakened easily took all meds without problem. Given snack in Room. 1:1 assessment completed at the bedside. Pt. denies SI, HI, A/VH. Pt. Pt describes mood as "my feelings are a little off" Pt isolated to room all shift other to come at a couple times and speak. with the Sitter. S/I, H/I: Denies A/VH: Denies Sleep: none per aid ADL's: Requires prompting Group attendance: No Were meds taken: Yes Any med S/E: Denies, none observed. Mental Status Exam Appearance: Young male, pale and thin wearing green scrubs. Eye contact: fair Behavior: Cooperative, impulsive. Speech: Start/stop rhythm. Mood: Calm. Affect: Blunted. Thought process: Thought blocking. Thought Content: Perseverates on discharge. Cognition: A&O x2 (to self and place) Insight: Poor Judgment: Poor Interventions PRN's used: None Therapeutic interventions: Provided 1:1 assessment with therapeutic communication, provided redirection as needed, medication administration/education/monitoring, and maintained LOS. Restraints/seclusion/emergency medication: N/A Justification of Continued Inpatient Treatment: Per JEM Gaona pt. continues to require a safe and supportive environment, medications were recently increased. Clear boundaries need to be enforced along with positive reinforcement.
[2021-08-15] MEDS: lactose-reduced food (Ensure Enlive) - 237ml bottle PO SCH ×2 (07:59→17:27)
[2021-08-15] MEDS: atorvastatin 20mg tablet PO SCH (08:00)
[2021-08-15] MEDS: QUEtiapine 25mg tablet PO SCH ×4 (08:00→20:44)
[2021-08-15] MEDS: lactobacillus rhamnosus 10,000 MMU CELLS/CAPSULE PO SCH ×2 (08:00→20:44)
[2021-08-15] MEDS: ferrous sulfate 325mg tablet PO SCH (08:00)
[2021-08-15] MEDS: docusate sod 100mg capsule PO SCH ×2 (08:00→20:44)
[2021-08-15] MEDS: zinc oxide ointment 30gm tube TP SCH ×2 (08:01→20:00)
[2021-08-15] MEDS: triamcinolone acet 0.1% cream 15gm TP SCH ×2 (08:01→08:30)
[2021-08-15 08:31] VITALS: BP 116/81
--- NOTE | 2021-08-15 12:27 | NUR ---
Nursing Progress Note: Jozef Legal hold: [facility] Client on involuntary status for GD Report received from SREEDHAR Torres with use of SBAR. Why they are here: Pt admitted to [place] for Behavioral health on LPS conservatorship for Schizophrenia. Pt has escaped from this unit twice in July 2021. What has happened this shift: Received patient sleeping in his room at shift change. Pt continues to be on LOS r/t elopement. Pt was compliant with medication. Psych meds were crushed and given in applesauce Pt reports sleeping well You know how it is. How about you? Pt stayed in his room most of the shift as he was told he would have to wear a mask if he came out. Pt has his repetitive movements, they seem to be improving. S/I, H/I: Pt denies both. A/VH: Pt denies both. Sleep: Intermittent naps today. ADL's: Requires prompting Group attendance: No scheduled group today. Were meds taken: Yes, psyche meds crushed and place in applesauce Any med S/E: Denies, none observed. Mental Status Exam Appearance: Young male, pale and thin wearing green scrubs. Eye contact: Fair Behavior: Cooperative, impulsive, isolated to his room Speech: Start/stop rhythm. Mood: Calm. Affect: Blunted. Thought process: Thought blocking. Thought Content: Cognition: A&O x2 (to self and place) Insight: Poor Judgment: Poor Interventions PRN's used: None Therapeutic interventions: Provided 1:1 assessment with therapeutic communication, provided redirection as needed, medication administration/education/monitoring, and maintained LOS. Restraints/seclusion/emergency medication: N/A Justification of Continued Inpatient Treatment: Per JEM Gaona pt. continues to require a safe and supportive environment, medications were recently increased. Clear boundaries need to be enforced along with positive reinforcement.
[2021-08-15 19:56] VITALS: BP 113/73
[2021-08-15] MEDS: quetiapine 100mg tablet PO SCH (20:44)
--- NOTE | 2021-08-16 04:36 | NUR ---
Nursing Progress Note: Legal hold: LPS Client on involuntary status for GD Report received from SREEDHAR Garrett with use of SBAR. Why they are here: Pt admitted to [place] for Behavioral health on LPS conservatorship for Schizophrenia. Pt has escaped from this unit twice in July 2021. What has happened this shift: Pt. sitting on side of bed eating dinner at start of shift. Continues to be LOS, sitter in bernard outside of room. Pt. denies SI, HI, A/VH. Pt. Pt describes mood as "okay" Pt verbalized not wanting to take HS medications. Informed he needs to take them. He put the medications in his mouth and obviously cheeked them. Pretended to take a drink of water. When asked to open his mouth he only stuck his tongue out a little way did not open his mouth. In response to repeated urging to drink water pt deliberately dropped his cup full of water on the floor and said "You are a azalea" Sitter sat next to patient and watched him closely for a sufficient amount of time for his medications to dissolve. S/I, H/I: Denies A/VH: Denies Sleep: asleep at this time ADL's: Requires prompting Group attendance: No Were meds taken: cheeked Any med S/E: Denies, none observed. Mental Status Exam Appearance: Young male, pale and thin wearing green scrubs. Eye contact: fair Behavior: , impulsive. Speech: Start/stop rhythm. Mood: Calm. Affect: Blunted. Thought process: Thought blocking. Thought Content: Perseverates on discharge. Cognition: A&O x2 (to self and place) Insight: Poor Judgment: Poor Interventions PRN's used: None Therapeutic interventions: Provided 1:1 assessment with therapeutic communication, provided redirection as needed, medication administration/education/monitoring, and maintained LOS. Restraints/seclusion/emergency medication: N/A Justification of Continued Inpatient Treatment: Per JEM Gaona pt. continues to require a safe and supportive environment, medications were recently increased. Clear boundaries need to be enforced along with positive reinforcement.
[2021-08-16 07:35] VITALS: BP 100/65
--- NOTE | 2021-08-16 07:36 | NUR ---
F/u 08/16: Pt continues w/ variable PO intake, avg 37% x 12 meals in addition to. avg 47% ONS BID and some snacks. participating in snacks per EMR. Overall likely meeting needs w/ snacks/ONS/meals. LBM 08/13 receiving routine colace. No change to recommendations at this time, will continue to monitor. Recs: 1. Continue Regular diet as tolerated; encourage PO intake 2. Ensure Enlive BID; consider TID if ONS acceptance improves 3. Bowel care per rx 4. Weekly wts Addendum: 08/16/21 at [address] Amended: Links added.
[2021-08-16] MEDS: lactose-reduced food (Ensure Enlive) - 237ml bottle PO SCH ×2 (07:45→17:30)
[2021-08-16] MEDS: triamcinolone acet 0.1% cream 15gm TP SCH ×2 (08:00→20:00)
[2021-08-16] MEDS: atorvastatin 20mg tablet PO SCH (08:03)
[2021-08-16] MEDS: docusate sod 100mg capsule PO SCH ×2 (08:03→20:00)
[2021-08-16] MEDS: ferrous sulfate 325mg tablet PO SCH (08:03)
[2021-08-16] MEDS: QUEtiapine 25mg tablet PO SCH ×4 (08:03→20:01)
[2021-08-16] MEDS: lactobacillus rhamnosus 10,000 MMU CELLS/CAPSULE PO SCH ×2 (08:03→20:01)
[2021-08-16] MEDS: zinc oxide ointment 30gm tube TP SCH ×2 (08:09→20:00)
--- NOTE | 2021-08-16 15:59 | NUR ---
Nursing Progress Note: ELIZA Legal hold: LPS Client on involuntary status for GD Report received from SREEDHAR Alexis with use of SBAR. Why they are here: Pt admitted to [place] for Behavioral health on LPS conservatorship for Schizophrenia. Pt has escaped from this unit twice in July 2021. What has happened this shift: Received patient sleeping in his room at shift change. Pt continues to be on LOS r/t elopement. Pt was compliant with medication. Psych meds were crushed and given in applesauce. 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 When pt asked how he slept pt responds good. then continues on broken thoughts. Pt denies psychotic symptoms. Pt ate all meals in room r/t Covid outbreak on unit. Encouraged hand washing and mask wearing when out of room. Pt was given a sippy cup because he has continuously been dumping out water cups into trash bin. Pt threw cup on ground three times before it came apart and spilled water everywhere. Pt was asked to clean up mess and pt complied without issue. Pt brightened when staff sang happy birthday to him pt stated well lets get with it. S/I, H/I: Pt denies both. A/VH: Pt denies both. Sleep: 6.0 hour per sleep assessment. Intermittent naps today. ADL's: Requires prompting Group attendance: No scheduled group today. Were meds taken: Yes, psyche meds crushed and placed in applesauce Any med S/E: Denies, none observed. Mental Status Exam Appearance: Young male, pale and thin wearing green scrubs. Eye contact: Fair Behavior: Cooperative, impulsive, isolated to his room Speech: Start/stop rhythm. Mood: Euthymic. Affect: Blunted. Thought process: Thought blocking. Thought Content: Today is my birthday. Cognition: A&O x2 (to self and place) Insight: Poor Judgment: Poor Interventions PRN's used: None Therapeutic interventions: Provided 1:1 assessment with therapeutic communication, provided redirection as needed, medication administration/education/monitoring, and maintained LOS. Restraints/seclusion/emergency medication: N/A Justification of Continued Inpatient Treatment: Per JEM Gaona pt. continues to require a safe and supportive environment, medications were recently increased. Clear boundaries need to be enforced along with positive reinforcement.
[2021-08-16 19:02] VITALS: BP 106/76
[2021-08-16] MEDS: quetiapine 100mg tablet PO SCH (20:01)
--- NOTE | 2021-08-17 00:27 | NUR ---
Nursing Progress Note: ELIZA Legal hold: LPS Client on involuntary status for GD Report received from ELOY Garrett with use of SBAR. Why they are here: Pt admitted to [place] for Behavioral health on LPS conservatorship for Schizophrenia. Pt has escaped from this unit twice in July 2021. What has happened this shift: Patient laying in bed quietly at the beginning of shift. Cooperative with care; playful (swinging around) but compliant with medication. Patient reports +A/VH this shift. Nurse asked about his mood and reported, "It's okay probably mess." Nurse asked about depression and he stated, "yeah, I can't say sorry." Patient ate HS snack in his room and has remained in bed throughout the rest of shift; observed sleeping and does not appear to be having difficulty. S/I, H/I: Denies A/VH: +A/VH Sleep: Refer to sleep assessment ADL's: Requires prompting Group attendance: NA Were meds taken: Yes Any med S/E: None observed or reported Mental Status Exam Appearance: Neat and appropriately dressed in green unit attire Eye contact: Fair, blinking rapidly Behavior: Cooperative, impulsive, isolates to his room Speech: Start/stop rhythm, audible Mood: Bored Affect: Blunted Thought process: Thought blocking Thought Content: Meeting needs Cognition: A&O x2 (to self and place) Insight: Poor Judgment: Poor Interventions PRN's used: None Therapeutic interventions: Provided 1:1 assessment with therapeutic communication, provided redirection as needed, medication administration/education/monitoring, and maintained LOS. Restraints/seclusion/emergency medication: NA Justification of Continued Inpatient Treatment: Per JEM Gaona pt. continues to require a safe and supportive environment, medications were recently increased. Clear boundaries need to be enforced along with positive reinforcement.
[2021-08-17 07:25] VITALS: BP 101/67
[2021-08-17] MEDS: triamcinolone acet 0.1% cream 15gm TP SCH ×2 (08:00→20:00)
[2021-08-17] MEDS: lactose-reduced food (Ensure Enlive) - 237ml bottle PO SCH ×2 (08:18→17:36)
[2021-08-17] MEDS: atorvastatin 20mg tablet PO SCH (08:19)
[2021-08-17] MEDS: QUEtiapine 25mg tablet PO SCH ×4 (08:19→20:22)
[2021-08-17] MEDS: docusate sod 100mg capsule PO SCH ×2 (08:19→20:23)
[2021-08-17] MEDS: lactobacillus rhamnosus 10,000 MMU CELLS/CAPSULE PO SCH (08:19)
[2021-08-17] MEDS: ferrous sulfate 325mg tablet PO SCH (08:19)
[2021-08-17] MEDS: zinc oxide ointment 30gm tube TP SCH ×2 (08:26→20:23)
--- NOTE | 2021-08-17 14:09 | NUR ---
Nursing Progress Note: ELIZA Legal hold: LPS Client on involuntary status for GD Report received from SREEDHAR Alexis with use of SBAR. Why they are here: Pt admitted to [place] for Behavioral health on LPS conservatorship for Schizophrenia. Pt has escaped from this unit twice in July 2021. What has happened this shift: Received patient sleeping in his room at shift change. Pt continues to be on 1:1 r/t high elopement risk. Pt was compliant with medication. Initially refused his zinc cream, but was compliant on third request. Pts hands are healing, but are still dry and continue to peel. Psych meds were crushed and given in applesauce. When asked about LBM pt vacillates with yes/no, as is his normal thought process. Noted bowel sounds x4, no tenderness with palpation, abdomen soft. Pt receives scheduled Colace 200mg BID. Pt was encouraged to shower several times, but continued to decline. Clean scrubs and linens were given to pt. S/I, H/I: Pt denies both. A/VH: Pt denies both, but then say yasometimes. Sleep: 6.0 hour per sleep assessment. Intermittent naps today. ADL's: Requires prompting Group attendance: No scheduled group today. Were meds taken: Yes, psyche meds crushed and placed in applesauce Any med S/E: Denies, none observed. Mental Status Exam Appearance: Young male, pale and thin wearing green scrubs. Eye contact: Fair Behavior: Cooperative, impulsive, isolated to his room Speech: Start/stop rhythm. Mood: Euthymic. Affect: Blunted. Thought process: Thought blocking. Thought Content: Getting needs met. Cognition: A&O x2 (to self and place) Insight: Poor Judgment: Poor Interventions PRN's used: None Therapeutic interventions: Provided 1:1 assessment with therapeutic communication, provided redirection as needed, medication administration/education/monitoring, and maintained 1:1 Restraints/seclusion/emergency medication: N/A Justification of Continued Inpatient Treatment: Patient is LPS conserved and requires a safe and therapeutic milieu while medications are being adjusted. Pt will be placed when stable.
[2021-08-17 20:11] VITALS: BP 103/77
[2021-08-17] MEDS: temazepam 15mg capsule PO PRN (20:22)
[2021-08-17] MEDS: quetiapine 100mg tablet PO SCH (20:23)
--- NOTE | 2021-08-18 03:14 | NUR ---
Nursing Progress Note: ELIZA Legal hold: [facility] Client on involuntary status for GD Report received from ELOY Garrett with use of SBAR. Why they are here: Pt admitted to [place] for Behavioral health on LPS conservatorship for Schizophrenia. Pt has escaped from this unit twice in July 2021. What has happened this shift: Patient observed laying in bed at beginning of shift. Patient later got up and asked nurse for lotion . When nurse told patient she would give him a serving and not the whole bottle patient became very agitated and frustrated. Patient eventually agreed to a serving and returned to his bedroom. Patient refused to participate in snack and refused medications. Nurse had to attempt multiple time before patient finally took them. Patient stats he is tired of having a shadow and doesn't want anyone in the room with him while he is sleeping. Patient had to be reminded he is on LOS due to him escaping twice. , S/I, H/I: Denies A/VH: +A/VH Sleep: Refer to sleep assessment ADL's: Requires prompting Group attendance: NA Were meds taken: Yes Any med S/E: None observed or reported Mental Status Exam Appearance: Neat and appropriately dressed in green unit attire Eye contact: Fair, blinking rapidly Behavior: Cooperative, impulsive, isolates to his room Speech: Start/stop rhythm, audible Mood: Bored Affect: Blunted Thought process: Thought blocking Thought Content: Meeting needs Cognition: A&O x2 (to self and place) Insight: Poor Judgment: Poor Interventions PRN's used: None Therapeutic interventions: Provided 1:1 assessment with therapeutic communication, provided redirection as needed, medication administration/education/monitoring, and maintained LOS. Restraints/seclusion/emergency medication: NA Justification of Continued Inpatient Treatment: Per JEM Gaona pt. continues to require a safe and supportive environment, medications were recently increased. Clear boundaries need to be enforced along with positive reinforcement.
[2021-08-18 08:00] VITALS: BP 97/63
[2021-08-18] MEDS: triamcinolone acet 0.1% cream 15gm TP SCH ×2 (08:00→20:54)
[2021-08-18] MEDS: zinc oxide ointment 30gm tube TP SCH ×2 (08:00→20:54)
[2021-08-18] MEDS: docusate sod 100mg capsule PO SCH ×2 (08:20→20:54)
[2021-08-18] MEDS: QUEtiapine 25mg tablet PO SCH ×4 (08:20→20:55)
[2021-08-18] MEDS: atorvastatin 20mg tablet PO SCH (08:20)
[2021-08-18] MEDS: ferrous sulfate 325mg tablet PO SCH (08:21)
[2021-08-18] MEDS: lactose-reduced food (Ensure Enlive) - 237ml bottle PO SCH ×2 (08:23→17:55)
--- NOTE | 2021-08-18 17:35 | NUR ---
Nursing Progress Note: Legal hold: LPS Client on involuntary status for GD Report received from SREEDHAR Torres with use of SBAR. Why they are here: Pt admitted to [place] for Behavioral health on LPS conservatorship for Schizophrenia. Pt has escaped from this unit twice in July 2021. What has happened this shift: RN received pt. asleep in bed at start of shift. Pt. is on 1:1 for elopement risk. Pt. awoke for breakfast and took all medications. Pt. isolated to his room most of the day. Coming out to pace a times. Pt. gives minimal information during 1:1. Pt. denies all mental health symptoms. S/I, H/I: Denies. A/VH: Denies Sleep: 7.50 hour per sleep assessment. Intermittent naps today. ADL's: Requires prompting Group attendance: No scheduled group today. Were meds taken: Yes Any med S/E: Denies, none observed. Mental Status Exam Appearance: Young male, pale and thin wearing green scrubs. Eye contact: Fair Behavior: Cooperative, impulsive, isolated to his room Speech: Start/stop rhythm. Mood: Euthymic. Affect: Blunted. Thought process: Thought blocking. Thought Content: Circumstantial. Cognition: A&O x2 (to self and place) Insight: Poor Judgment: Poor Interventions PRN's used: None Therapeutic interventions: Provided 1:1 assessment with therapeutic communication, provided redirection as needed, medication administration/education/monitoring, and maintained 1:1 Restraints/seclusion/emergency medication: N/A Justification of Continued Inpatient Treatment: Patient is LPS conserved and requires a safe and therapeutic milieu while medications are being adjusted. Pt will be placed when stable.
[2021-08-18 19:00] VITALS: BP 110/76
[2021-08-18] MEDS: temazepam 15mg capsule PO PRN (20:54)
[2021-08-18] MEDS: quetiapine 100mg tablet PO SCH (20:55)
--- NOTE | 2021-08-19 02:28 | NUR ---
Nursing Progress Note: Legal hold: LPS Client on involuntary status for GD Report received from SREEDHAR Berkowitz with use of SBAR. Why they are here: Pt admitted to [place] for Behavioral health on LPS conservatorship for Schizophrenia. Pt has escaped from this unit twice in July 2021. What has happened this shift: Patient was observed laying in bed at beginning of shift. Patient self isolated in room all shift. Patient refused snack and had to be persuaded to take night medications. Patient refused needed had cream but was left some for him to use later. S/I, H/I: Denies. A/VH: Denies Sleep: See sleep assessment ADL's: Requires prompting Group attendance: No scheduled group today. Were meds taken: Yes Any med S/E: Denies, none observed. Mental Status Exam Appearance: Young male, pale and thin wearing green scrubs. Eye contact: Fair Behavior: Cooperative, impulsive, isolated to his room Speech: Start/stop rhythm. Mood: Euthymic. Affect: Blunted. Thought process: Thought blocking. Thought Content: Circumstantial. Cognition: A&O x2 (to self and place) Insight: Poor Judgment: Poor Interventions PRN's used: None Therapeutic interventions: Provided 1:1 assessment with therapeutic communication, provided redirection as needed, medication administration/education/monitoring, and maintained 1:1 Restraints/seclusion/emergency medication: N/A Justification of Continued Inpatient Treatment: Patient is LPS conserved and requires a safe and therapeutic milieu while medications are being adjusted. Pt will be placed when stable.
[2021-08-19] MEDS: lactose-reduced food (Ensure Enlive) - 237ml bottle PO SCH ×2 (07:30→17:48)
[2021-08-19 08:00] VITALS: BP 104/65
[2021-08-19] MEDS: zinc oxide ointment 30gm tube TP SCH ×2 (08:00→20:00)
[2021-08-19] MEDS: QUEtiapine 25mg tablet PO SCH ×4 (08:24→20:55)
[2021-08-19] MEDS: atorvastatin 20mg tablet PO SCH (08:24)
[2021-08-19] MEDS: ferrous sulfate 325mg tablet PO SCH (08:24)
[2021-08-19] MEDS: triamcinolone acet 0.1% cream 15gm TP SCH ×2 (08:24→20:00)
[2021-08-19] MEDS: docusate sod 100mg capsule PO SCH ×2 (08:24→20:54)
--- NOTE | 2021-08-19 16:33 | NUR ---
Nursing Progress Note: Legal hold: LPS Client on involuntary status for GD Report received from SREEDHAR Ramos with use of SBAR. Why they are here: Pt admitted to [place] for Behavioral health today on LPS conservatorship for Schizophrenia. Pt had escaped from this unit 4-5 days earlier. Pt walked back into the emergency room this morning. Pt has wounds to bilateral thumbs that could be cold weather injury and to L foot. Pt has been off of his Meds since leaving. Pt immediately requests to go to lower level of care, return to [place] or leave today. Pt here for medication stabilization and placement. Assessment What has happened this shift: In the past pt eloped twice from the unit therefore remains on LOS. Pt isolates to his room most of the day. He is eating approximately 25% of his meals. It is noted he lost 1-2 lbs this week. Pt declined to use medication on his hand. No redness noted on either hand or any fingers. Pt states, "I would prefer to just use lotion." Pt is compliant with med pass. S/I, H/I: Denies A/VH: Denies Sleep: Naps off and on throughout the day. ADL's: Requires direction Group attendance: No Were Meds taken: Yes Any med S/E: None observed or reported Mental Status Exam Appearance: Disheveled brown hair wearing green unit scrubs; has not showered today Eye contact: Good Behavior: Calm, cooperative Speech: Disorganized, Fragmented Mood: "fine" Affect: Flat Thought process: Poverty of thought with possible thought blocking Thought Content: "maybe I can live with my Dad." Cognition: A&O x2 Insight: Poor Judgment: Poor Interventions PRN's used: None Therapeutic interventions: Provided 1:1 assessment with therapeutic communication, encouraged conversation prompting responses, encouraged personal hygiene, medication administration/education/monitoring, and maintained LOS. Restraints/seclusion/emergency medication: N/A Justification of Continued Inpatient Treatment: Per JEM Gaona pt. continues to require a safe and supportive environment, medications were recently increased. Clear boundaries need to be enforced along with positive reinforcement.
[2021-08-19 19:28] VITALS: BP 113/81
[2021-08-19] MEDS: quetiapine 100mg tablet PO SCH (20:54)
[2021-08-19] MEDS: temazepam 15mg capsule PO PRN (20:55)
--- NOTE | 2021-08-19 23:43 | NUR ---
Nursing Progress Note: Legal hold: LPS Client on involuntary status for GD Report received from SREEDHAR posadas with use of SBAR. Why they are here: Patient was observed sitting in room at beginning of shift . Patient did not leave his room all shift. Patient was hesitant to take medications but eventually took them. Patient refused medicated cream on hands and did not take a shower this shift. Patient continues to sleep periodically throughout the night. Assessment What has happened this shift: In the past pt eloped twice from the unit therefore remains on LOS. Pt isolates to his room most of the day. He is eating approximately 25% of his meals. It is noted he lost 1-2 lbs this week. Pt declined to use medication on his hand. No redness noted on either hand or any fingers. Pt states, "I would prefer to just use lotion." Pt is compliant with med pass. S/I, H/I: Denies A/VH: Denies Sleep: See sleep assessment ADL's: Requires direction Group attendance: No Were Meds taken: Yes Any med S/E: None observed or reported Mental Status Exam Appearance: Disheveled brown hair wearing green unit scrubs Eye contact: Good Behavior: Calm, cooperative Speech: Disorganized, Fragmented Mood: "fine" Affect: Flat Thought process: Poverty of thought with possible thought blocking Thought Content: "being left alone ." Cognition: A&O x2 Insight: Poor Judgment: Poor Interventions PRN's used: temazepam Therapeutic interventions: Provided 1:1 assessment with therapeutic communication, encouraged conversation prompting responses, encouraged personal hygiene, medication administration/education/monitoring, and maintained LOS. Restraints/seclusion/emergency medication: N/A Justification of Continued Inpatient Treatment: Per JEM Gaona pt. continues to require a safe and supportive environment, medications were recently increased. Clear boundaries need to be enforced along with positive reinforcement.
[2021-08-20 06:55] VITALS: BP 98/64
[2021-08-20] MEDS: lactose-reduced food (Ensure Enlive) - 237ml bottle PO SCH ×2 (07:30→17:30)
[2021-08-20] MEDS: atorvastatin 20mg tablet PO SCH (07:58)
[2021-08-20] MEDS: ferrous sulfate 325mg tablet PO SCH (07:58)
[2021-08-20] MEDS: QUEtiapine 25mg tablet PO SCH ×4 (07:58→20:32)
[2021-08-20] MEDS: docusate sod 100mg capsule PO SCH ×2 (07:58→20:31)
[2021-08-20 08:00] VITALS: BP 98/64
[2021-08-20] MEDS: zinc oxide ointment 30gm tube TP SCH ×2 (08:00→20:31)
[2021-08-20] MEDS: triamcinolone acet 0.1% cream 15gm TP SCH ×2 (08:41→20:32)
--- NOTE | 2021-08-20 08:43 | NUR ---
Pt refused lab draw this AM. Rescheduled for tomorrow AM
[2021-08-20] MEDS: LORazepam 1 MG tablet PO PRN (10:57)
--- NOTE | 2021-08-20 11:03 | NUR ---
Reassessment: PO intake continues to fluctuate. Since last RD assessment 08/16 PO intake of meals consistently 25% with refusals with average 44% PO intake of last 9 ONS d/t occasional ONS refusal. Though when pt is accepting of ONS he's documented to consume ~75%. Noted pt refuses snacks at times though does occasionally participate per laminating machine feeder. Recommend continuing with current nutrition interventions and encouraging PO intake. LBM 08/17, receiving routine bowel care. Will continue to follow closely. Recommendations: 1. Continue regular diet 2. Ensure Enlive BID; consider increasing to TID if ONS acceptance improves 3. Encourage PO intake of meals/ONS/snacks 4. Routine bowel care 5. Weekly scaled weights Addendum: 08/20/21 at [address] Amended: Links added.
--- NOTE | 2021-08-20 16:54 | NUR ---
Nursing Progress Note Legal hold: LPS Report received from SREEDHAR Ramos with use of SBAR. Why they are here: Pt admitted to [facility] today on LPS conservatorship for Schizophrenia. Pt had escaped from this unit 4-5 days earlier. Pt walked back into the emergency room this morning. Pt has wounds to bilateral thumbs that could be cold weather injury and to L foot. Pt has been off of his meds since leaving. Pt here for medication stabilization and placement. Assessment What has happened this shift: Pt remains on LOS observation. Met with patient this AM at the bedside. He presents with restricted affect, fragmented sentences, changing answer yes, no, yes, no. Does not remember when his last BM was, but is on routine stool softener and no complaints. Went for the door once, but did not touch it. Repeatedly asks if he can go to the [place] and to call a cab, I need out of this hell hole. Offered TV, books, magazine, and games, but patient declined all. He was verbally insulting staff and becoming restless, so was offered PRN Ativan and agreed to take it. Ativan was effective, and he was calmer and cooperative this afternoon. Agreed to shower this afternoon after much encouragement. S/I, H/I: Denies A/VH: Denies Sleep: Naps off and on throughout the day ADL's: Requires direction and prompting Group attendance: None held today Were Meds taken: Yes Any med S/E: None observed or reported Mental Status Exam Appearance: Showered and wearing clean scrubs Eye contact: Good Behavior: restless at times, no aggressive behaviors Speech: clear, fragmented sentences Mood: good Affect: Flat Thought process: Poverty of thought, thought blocking Thought Content: wanting to leave, asking to go to the [facility] [place], call me a cab Cognition: A&O x2 Insight: Poor Judgment: Poor Interventions PRN's used: Ativanx1 Therapeutic interventions: Provided 1:1 assessment with therapeutic communication, encouraged conversation prompting responses, encouraged personal hygiene, medication administration/education/monitoring, and maintained LOS. Restraints/seclusion/emergency medication: N/A Justification of Continued Inpatient Treatment: Per JEM Gaona pt. continues to require a safe and supportive environment, medications were recently increased. Clear boundaries need to be enforced along with positive reinforcement.
[2021-08-20 19:00] VITALS: BP 109/79
[2021-08-20] MEDS: quetiapine 100mg tablet PO SCH (20:31)
--- NOTE | 2021-08-21 01:12 | NUR ---
Nursing Progress Note Legal hold: LPS Report received from SREEDHAR Berkowitz with use of SBAR. Why they are here: Pt admitted to [facility] today on LPS conservatorship for Schizophrenia. Pt had escaped from this unit 4-5 days earlier. Pt walked back into the emergency room this morning. Pt has wounds to bilateral thumbs that could be cold weather injury and to L foot. Pt has been off of his meds since leaving. Pt here for medication stabilization and placement. Assessment What has happened this shift: Patient isolated in room at snack time.This va underwriter entered patients room for one to one interview. The patient looked gleeful that he surprised this va underwriter by being face to face when this va underwriter opened the door. The patient was compliant with medications. He did answer "yes, then no,) to some questions. The patient awkwardly demonstrated some karate and boxing moves for this va underwriter. Patient denied H/I, S/I, or any hallucinations. S/I, H/I: Denies. A/VH: Denies. Sleep: Will tally later in am. ADL's: Requires direction and prompting. Group attendance: No group on nights. Were Meds taken: Yes, medication compliant. Any med S/E: None observed or reported. Mental Status Exam Appearance: Clean, wearing green scrubs. Eye contact: Good. Behavior: Playful, cooperative. Speech: Clear, fragmented sentences. Mood: Animated and happy. Affect: Flat Thought process: Poverty of thought, thought blocking Thought Content: Poverty of thought. Cognition: A&O x2 Insight: Poor Judgment: Poor Interventions PRN's used: Therapeutic interventions: Provided 1:1 assessment with therapeutic communication, encouraged conversation prompting responses, encouraged personal hygiene, medication administration/education/monitoring, and maintained LOS. Restraints/seclusion/emergency medication: N/A Justification of Continued Inpatient Treatment: Per JEM Gaona pt. continues to require a safe and supportive environment, medications were recently increased. Clear boundaries need to be enforced along with positive reinforcement.
[2021-08-21] MEDS: lactose-reduced food (Ensure Enlive) - 237ml bottle PO SCH ×2 (07:30→18:08)
[2021-08-21 08:00] VITALS: BP 111/81
[2021-08-21] MEDS: zinc oxide ointment 30gm tube TP SCH ×2 (08:00→20:00)
[2021-08-21] MEDS: triamcinolone acet 0.1% cream 15gm TP SCH ×2 (08:00→20:00)
[2021-08-21] MEDS: docusate sod 100mg capsule PO SCH ×2 (08:45→21:08)
[2021-08-21] MEDS: ferrous sulfate 325mg tablet PO SCH (08:46)
[2021-08-21] MEDS: QUEtiapine 25mg tablet PO SCH ×4 (08:46→21:08)
[2021-08-21] MEDS: atorvastatin 20mg tablet PO SCH (08:46)
[2021-08-21] MEDS ORDERED: LORazepam 1 MG tablet PO ONE (13:10)
--- NOTE | 2021-08-21 17:01 | NUR ---
Nursing Progress Note Legal hold: LPS Report received from SREEDHAR Ramos with use of SBAR. Why they are here: [facility] today on LPS conservatorship for Schizophrenia. Pt had escaped from this unit 4-5 days earlier. Pt walked back into the emergency room this morning. Pt has wounds to bilateral thumbs that could be cold weather injury and to L foot. Pt has been off of his meds since leaving. Pt here for medication stabilization and placement. Assessment What has happened this shift: Pt up at start of shift. A sitter is outside his door. He remains on LOS d/t history of eloping. Pt is cooperative with treatment and oral medications. He continues to show OCD, robotic type behaviors. He will take a step forward then back, leap up and down a few times in a row, put his hand out to hand you something then drop it on the ground. Zoloft 25mg added today per JEM Bergeron. He has been out of his room more this shift then in the past week. S/I, H/I: Denies A/VH: Denies Sleep: Appears to be napping off and on ADL's: Requires direction and prompting Group attendance: N/A Were Meds taken: Yes Any med S/E: None noted or reported Mental Status Exam Appearance: unkempt, wearing green scrubs Eye contact: Good Behavior: Restless, impulsive, pleasant and cooperative Speech: Fragmented Mood: "fine" Affect: Flat Thought process: Poverty of thought, thought blocking Thought Content: "just want a normal life." "can somebody help me?" Cognition: A&O x2 Insight: Poor Judgment: Poor Interventions PRN's used: N/A Therapeutic interventions: Provided 1:1 assessment with therapeutic communication and active listening, encouraged conversation prompting responses, encouraged personal hygiene, medication administration/education/monitoring, and maintained LOS. Restraints/seclusion/emergency medication: N/A Justification of Continued Inpatient Treatment: Per JEM Gaona pt. continues to require a safe and supportive environment, medications were recently increased. Clear boundaries need to be enforced along with positive reinforcement.
[2021-08-21 19:03] VITALS: BP 124/85
[2021-08-21] MEDS: OLANZapine 5mg rapidly disint. tablet PO SCH (21:07)
[2021-08-21] MEDS: quetiapine 100mg tablet PO SCH (21:08)
--- NOTE | 2021-08-22 02:29 | NUR ---
Nursing Progress Note Legal hold: LPS Report received from SREEDHAR Berkowitz with use of SBAR. Why they are here: Pt admitted to [facility] for [facility] on LPS conservatorship for Schizophrenia. Pt had escaped from this unit 4-5 days earlier. Pt walked back into the emergency room this morning. Pt has wounds to bilateral thumbs that could be cold weather injury and to L foot. Pt has been off of his meds since leaving. Pt here for medication stabilization and placement. Assessment What has happened this shift: Pt isolated to room all shift. A sitter is outside his door. He remains on LOS d/t history of eloping. Pt is cooperative with treatment and oral medications. He is more talkative than last week. He volunteered that he started on Zyprexa and thinks it is helping him. He made no effort to cheek his medications opened mouth willingly for check and blew with his cheeks puffed out when asked. No OCD behaviors observed. His hands are well healed superficial dry skin on palms. S/I, H/I: Denies A/VH: Denies Sleep: asleep at this time ADL's: Requires direction and prompting Group attendance: N/A Were Meds taken: Yes Any med S/E: None noted or reported Mental Status Exam Appearance: unkempt, wearing green scrubs Eye contact: Good Behavior: pleasant and cooperative Speech: Fragmented Mood: "fine" Affect: Slightly more animated than last week. Thought process: Poverty of thought, thought blocking Thought Content: "just want a normal life." "can somebody help me?" Cognition: A&O x2 Insight: Poor Judgment: Poor Interventions PRN's used: N/A Therapeutic interventions: Provided 1:1 assessment with therapeutic communication and active listening, encouraged conversation prompting responses, encouraged personal hygiene, medication administration/education/monitoring, and maintained LOS. Restraints/seclusion/emergency medication: N/A Justification of Continued Inpatient Treatment: Per JEM Gaona pt. continues to require a safe and supportive environment, medications were recently increased. Clear boundaries need to be enforced along with positive reinforcement.
[2021-08-22] MEDS: zinc oxide ointment 30gm tube TP SCH ×2 (08:00→20:36)
[2021-08-22] MEDS: QUEtiapine 25mg tablet PO SCH ×4 (08:01→20:29)
[2021-08-22] MEDS: atorvastatin 20mg tablet PO SCH (08:01)
[2021-08-22] MEDS: triamcinolone acet 0.1% cream 15gm TP SCH ×2 (08:01→20:36)
[2021-08-22] MEDS: docusate sod 100mg capsule PO SCH ×2 (08:01→20:29)
[2021-08-22] MEDS: OLANZapine 5mg rapidly disint. tablet PO SCH ×2 (08:01→20:30)
[2021-08-22] MEDS: sertraline 25mg tablet PO SCH (08:02)
[2021-08-22] MEDS: lactose-reduced food (Ensure Enlive) - 237ml bottle PO SCH ×2 (08:07→17:30)
--- NOTE | 2021-08-22 18:22 | NUR ---
Nursing Progress Note Legal hold: LPS Report received from SREEDHAR Ramos with use of SBAR. Why they are here: Pt admitted to [facility] today on LPS conservatorship for Schizophrenia. Pt had escaped from this unit 4-5 days earlier. Pt walked back into the emergency room this morning. Pt has wounds to bilateral thumbs that could be cold weather injury and to L foot. Pt has been off of his meds since leaving. Pt here for medication stabilization and placement. Assessment What has happened this shift: Pt remains on LOS observation. Met with patient this AM at the bedside. He presents with restricted affect, fragmented sentences, changing answer yes, no, yes, no. Pt had no complaints and remained cooperative all shift. S/I, H/I: Denies A/VH: Denies Sleep: Naps off and on throughout the day ADL's: Requires direction and prompting Group attendance: None held today Were Meds taken: Yes Any med S/E: None observed or reported Mental Status Exam Appearance: Showered and wearing clean scrubs Eye contact: Good Behavior: restless at times, no aggressive behaviors Speech: clear, fragmented sentences Mood: good Affect: Flat Thought process: Poverty of thought, thought blocking Thought Content: wanting to leave, asking to go to the [facility] [place], call me a cab Cognition: A&O x2 Insight: Poor Judgment: Poor Interventions PRN's used: Therapeutic interventions: Provided 1:1 assessment with therapeutic communication, encouraged conversation prompting responses, encouraged personal hygiene, medication administration/education/monitoring, and maintained LOS. Restraints/seclusion/emergency medication: N/A Justification of Continued Inpatient Treatment: Per JEM Gaona pt. continues to require a safe and supportive environment, medications were recently increased. Clear boundaries need to be enforced along with positive reinforcement.
[2021-08-22 20:05] VITALS: BP 113/79
[2021-08-22] MEDS: quetiapine 100mg tablet PO SCH (20:30)
--- NOTE | 2021-08-23 02:26 | NUR ---
Nursing Progress Note Legal hold: LPS Report received from SREEDHAR Torres with use of SBAR. Why they are here: Pt admitted to [facility] for [facility] health on LPS conservatorship for Schizophrenia. Pt had escaped from this unit 4-5 days earlier. Pt walked back into the emergency room this morning. Pt has wounds to bilateral thumbs that could be cold weather injury and to L foot. Pt has been off of his meds since leaving. Pt here for medication stabilization and placement. Assessment What has happened this shift: Pt up on unit in halls a little bit this shift. Mostly isolates to room. A sitter is outside his door. He remains on LOS d/t history of eloping. Pt is cooperative with treatment and oral medications. Showed inside of mouth with minimal prompting after taking meds. He has thrown food all over floor of his room he has no explanation as to why. His hands are well healed superficial dry skin on palms. S/I, H/I: Denies A/VH: Denies Sleep: asleep at this time ADL's: Requires direction and prompting Group attendance: N/A Were Meds taken: Yes Any med S/E: None noted or reported Mental Status Exam Appearance: unkempt, wearing green scrubs Eye contact: Good Behavior: pleasant and cooperative Speech: Fragmented Mood: "fine" Affect: Slightly more animated than last week. Thought process: Poverty of thought, thought blocking Thought Content: difficult to assess Cognition: A&O x2 Insight: Poor Judgment: Poor Interventions PRN's used: N/A Therapeutic interventions: Provided 1:1 assessment with therapeutic communication and active listening, encouraged conversation prompting responses, encouraged personal hygiene, medication administration/education/monitoring, and maintained LOS. Restraints/seclusion/emergency medication: N/A Justification of Continued Inpatient Treatment: Per JEM Gaona pt. continues to require a safe and supportive environment, medications were recently increased. Clear boundaries need to be enforced along with positive reinforcement.
--- NOTE | 2021-08-23 07:25 | NUR ---
Reassessment: PO intake continues to fluctuate. Since last RD assessment. PO intake of meals avg 29% with refusals with average 53% PO intake of last 8 ONS d/t occasional ONS refusal. Though when pt is accepting of ONS he's documented to consume ~75%. Noted pt refuses snacks at times though does occasionally participate per home care physical therapist. Recommend continuing with current nutrition interventions and encouraging PO intake. LBM 08/21, receiving routine bowel care. Will continue to follow closely. Recommendations: 1. Continue regular diet 2. Ensure Enlive BID; consider increasing to TID if ONS acceptance improves 3. Encourage PO intake of meals/ONS/snacks 4. Routine bowel care 5. Weekly scaled weights Addendum: 08/23/21 at [address] Amended: Links added.
[2021-08-23 07:30] VITALS: BP 126/80
[2021-08-23] MEDS: zinc oxide ointment 30gm tube TP SCH (08:00)
[2021-08-23] MEDS: triamcinolone acet 0.1% cream 15gm TP SCH (08:00)
[2021-08-23] MEDS: lactose-reduced food (Ensure Enlive) - 237ml bottle PO SCH ×2 (08:22→17:30)
[2021-08-23] MEDS: sertraline 25mg tablet PO SCH (08:32)
[2021-08-23] MEDS: QUEtiapine 25mg tablet PO SCH ×4 (08:32→20:15)
[2021-08-23] MEDS: atorvastatin 20mg tablet PO SCH (08:32)
[2021-08-23] MEDS: OLANZapine 5mg rapidly disint. tablet PO SCH ×2 (08:32→20:15)
[2021-08-23] MEDS: docusate sod 100mg capsule PO SCH ×2 (08:32→20:14)
--- NOTE | 2021-08-23 14:21 | NUR ---
Nursing Progress Note: ELIZA Legal hold: LPS Report received from SREEDHAR Alexis with use of SBAR. Why they are here: Pt admitted to [facility] for [facility] on LPS conservatorship for Schizophrenia. Pt had escaped from this unit 4-5 days earlier. Pt walked back into the emergency room this morning. Pt has wounds to bilateral thumbs that could be cold weather injury and to L foot. Pt has been off of his meds since leaving. Pt here for medication stabilization and placement. Assessment What has happened this shift: Pt continues on LOS d/t history of elopement. Pt was sleeping restfully, respirations even and unlabored. Pt continues to cooperative with care and medication. Psyche medications crushed and given in applesauce without issue. Pt remained in his room most of the shift sometimes up making intermittent jumping movements or just lying in his bed with eyes open. Pts answers to questions vacillate to yes/no. Pt has broken speech r/t thought blocking. Pt came to freelance copywriter and asked for lotion to mas. It was noted to freelance copywriter that over the weekend pt had been inappropriate to staff r/t this. Pt was given lotion in a cup and reminded that speaking inappropriately to staff was not acceptable. Pt stated okay, sorry. No inappropriate remarks were made to freelance copywriter or staff. Pt denies psychotic symptoms Ya I just really need out of here. Bilateral hands are healed, some dryness noted. Zinc oxide and Kenalog cream d/c per JEM Hutchison. Pt declined to shower today. S/I, H/I: Denies both. A/VH: Denies both. Sleep: 6.75 hours per sleep assessment. Intermittent naps throughout shift. ADL's: Requires direction and prompting Group attendance: No scheduled group. Were Meds taken: Yes, psyche meds crushed and given in applesauce. Any med S/E: None noted or reported Mental Status Exam Appearance: Unkempt, wearing green scrubs Eye contact: Good Behavior: Isolates to room, cooperative, no behaviors to report. Speech: Fragmented Mood: "Ya know its all good." Affect: Bright Thought process: Poverty of thought, thought blocking Thought Content: difficult to assess Cognition: A&O x2 Insight: Poor Judgment: Poor Interventions PRN's used: None Therapeutic interventions: Provided 1:1 assessment with therapeutic communication and active listening, encouraged conversation prompting responses, encouraged personal hygiene, medication administration/education/monitoring, and maintained LOS. Restraints/seclusion/emergency medication: N/A Justification of Continued Inpatient Treatment: Patient is LPS conserved and will await placement when stable. continues to require a safe and supportive environment, medications were recently increased.
[2021-08-23 19:15] VITALS: BP 108/75
[2021-08-23] MEDS: quetiapine 100mg tablet PO SCH (20:14)
--- NOTE | 2021-08-24 00:35 | NUR ---
Nursing Progress Note: ELIZA Legal hold: LPS Report received from ELOY Torres with use of SBAR. Why they are here: Pt admitted to [facility] for [facility] on LPS conservatorship for Schizophrenia. Pt had escaped from this unit 4-5 days earlier. Pt walked back into the emergency room this morning. Pt has wounds to bilateral thumbs that could be cold weather injury and to L foot. Pt has been off of his meds since leaving. Pt here for medication stabilization and placement. Assessment What has happened this shift: Pt in room staring at ceiling at shift change. Pt continues to be LOS D/T elopement. Pt answered questions with yes/no. Pt came out for snack and had options on what he wanted to eat. Patient asked for apple juice with meds that couldn't be crushed. AJ brought to pt where pt states he no longer wants AJ, he wants water. Pt took medications with applesauce and water. Pt tried to chew up Colace capsules and promptly spit them on floor stating that he was allergic to them. Pt went to bed shortly after and didn't come out again S/I, H/I: Denies both. A/VH: Denies both. Sleep: See sleep hours ADL's: Requires direction and prompting Group attendance: No group in the evening Were Meds taken: Yes, psyche meds crushed and given in applesauce. Any med S/E: None noted or reported Mental Status Exam Appearance: Unkempt, wearing green scrubs Eye contact: Good Behavior: Isolates to room, cooperative, no behaviors to report. Speech: Fragmented Mood: bored Affect: Bright Thought process: Poverty of thought, thought blocking Thought Content: difficult to assess Cognition: A&O x2 Insight: Poor Judgment: Poor Interventions PRN's used: None Therapeutic interventions: Provided 1:1 assessment with therapeutic communication and active listening, encouraged conversation prompting responses, encouraged personal hygiene, medication administration/education/monitoring, and maintained LOS. Restraints/seclusion/emergency medication: N/A Justification of Continued Inpatient Treatment: Patient is LPS conserved and will await placement when stable. continues to require a safe and supportive environment, medications were recently increased.
[2021-08-24 07:28] VITALS: BP 104/67
[2021-08-24] MEDS: QUEtiapine 25mg tablet PO SCH ×4 (07:44→20:07)
[2021-08-24] MEDS: docusate sod 100mg capsule PO SCH ×3 (07:44→20:00)
[2021-08-24] MEDS: atorvastatin 20mg tablet PO SCH (07:44)
[2021-08-24] MEDS: OLANZapine 5mg rapidly disint. tablet PO SCH ×2 (07:44→20:07)
[2021-08-24] MEDS: sertraline 25mg tablet PO SCH (07:44)
[2021-08-24] MEDS: lactose-reduced food (Ensure Enlive) - 237ml bottle PO SCH ×2 (08:16→17:47)
[2021-08-24] MEDS: LORazepam 1 MG tablet PO PRN (08:22)
--- NOTE | 2021-08-24 16:56 | NUR ---
Nursing Progress Note: Jozef Matthew Legal hold: LPS Report received from SREDEHAR Alexis with use of SBAR. Why they are here: Pt admitted to [facility] for [facility] on LPS conservatorship for Schizophrenia. Pt here for medication stabilization and placement. Assessment What has happened this shift: Pt. received awake in his room, medication compliant and 1:1 assessment completed at the bedside. Pt. presents with fractured speech and thought blocking making for full assessment difficult, however he presents internally preoccupied, and appears to jump over hallucinations in his way during ambulation. He requested stop the cat shit sign writer letterer or painter was able to redirect and decipher no more shit pill routine Colace held this shift. Pt. ate scantly this morning and refused his ensure, he was observed pacing more than usual and seen pressing buttons on wall inappropriately, when approached he presented anxious and near agitation particularly with in ability to communicate effectively. PRN Ativan given with good results. Later in the afternoon staff reported pt. was inappropriate and stating, sex then while gesturing for female staff to enter his room. Pt spent some time in MDR with cohorts but remaining socially withdrawn. Pt. presents as disorganized, sign writer letterer or painter gave pt. a cup of water with meds and he moved the cup forward and back several times before dropping it to the floor. Pt. attempted to check the double doors near MDR, and pressed alarm lights; LOS continues for safety. S/I, H/I: Denies A/VH: Denies Sleep: 6.75 hours per NOC shift. ADL's: Requires direction and prompting Group attendance: No scheduled group. Were Meds taken: Yes Any med S/E: None noted or reported Mental Status Exam Appearance: Younger male, thin, pale, and wearing green scrubs Eye contact: Intense Behavior: Cooperative Speech: Fragmented Mood: Defiant, inappropriate Affect: Flat Thought process: Disorganized, thought blocking Thought Content: Unknown Cognition: A&O x2 Insight: Poor Judgment: Poor Interventions PRN's used: Ativan Therapeutic interventions: Provided 1:1 assessment with therapeutic communication and active listening, encouraged conversation prompting responses, encouraged personal hygiene, medication administration/education/monitoring, and maintained LOS. Restraints/seclusion/emergency medication: N/A Justification of Continued Inpatient Treatment: Patient is LPS conserved and will await placement when stable. continues to require a safe and supportive environment, medications were recently increased.
[2021-08-24 19:29] VITALS: BP 107/73
[2021-08-24] MEDS: quetiapine 100mg tablet PO SCH (20:07)
--- NOTE | 2021-08-25 01:00 | NUR ---
Nursing Progress Note: Jozef Matthew Legal hold: LPS Report received from ELOY Butterfield with use of SBAR. Why they are here: Pt admitted to [facility] for [facility] on LPS conservatorship for Schizophrenia. Pt here for medication stabilization and placement. Assessment What has happened this shift: Pt in room with light off at shift change. Pt is LOS due to elopement. Pt sits up when this nurse opens the door. Pt has disorganized speech and I remind pt that I'll come get him for snack time. Pt reminded of snack time and picks out snack and sits at a table. Meds are brought to the pt. Pt takes pills crushed in applesauce due pts hx of cheeking. Pt took one bite of applesauce and sneezed on this nurses arm. Cleaned up mess and continued with evening med administration w/o complications. Pt went to his room shortly after and went to sleep. S/I, H/I: Denies A/VH: Denies Sleep:See sleep hours ADL's: Requires direction and prompting Group attendance: No group in the evenings Were Meds taken: Yes Any med S/E: None noted or reported Mental Status Exam Appearance: Younger male, thin, pale, and wearing green scrubs Eye contact: Intense Behavior: Cooperative Speech: Fragmented Mood: defiant Affect: Flat Thought process: Disorganized, thought blocking Thought Content: Unknown Cognition: A&O x2 Insight: Poor Judgment: Poor Interventions PRN's used: Ativan Therapeutic interventions: Provided 1:1 assessment with therapeutic communication and active listening, encouraged conversation prompting responses, encouraged personal hygiene, medication administration/education/monitoring, and maintained LOS. Restraints/seclusion/emergency medication: N/A Justification of Continued Inpatient Treatment: Patient is LPS conserved and will await placement when stable. continues to require a safe and supportive environment, medications were recently increased.
[2021-08-25] MEDS: lactose-reduced food (Ensure Enlive) - 237ml bottle PO SCH ×3 (07:30→21:27)
[2021-08-25 08:00] VITALS: BP 107/73
[2021-08-25] MEDS: docusate sod 100mg capsule PO SCH ×2 (08:00→20:00)
[2021-08-25] MEDS: sertraline 25mg tablet PO SCH (08:27)
[2021-08-25] MEDS: QUEtiapine 25mg tablet PO SCH ×4 (08:27→20:25)
[2021-08-25] MEDS: atorvastatin 20mg tablet PO SCH (08:27)
[2021-08-25] MEDS: OLANZapine 5mg rapidly disint. tablet PO SCH (08:27)
--- NOTE | 2021-08-25 13:46 | NUR ---
Nursing Progress Note Legal hold: LPS Report received from RN with use of SBAR Why they are here: Pt admitted to [facility] today on LPS conservatorship for Schizophrenia. Pt had escaped from this unit 4-5 days earlier. Pt walked back into the emergency room this morning. Pt has wounds to bilateral thumbs that could be cold weather injury and to L foot. Pt has been off of his meds since leaving. Pt here for medication stabilization and placement. Assessment What has happened this shift: Received patient in bed sleeping w/o distress at shift change. Pt woke and was cooperative with vitals. Pt remains on LOS observation and complained about it throughout the day. Pt is guarded and responded minimally to questions during AM assessment. Pt took meds today and dropped his water afterwards. Pt continues to ask for rides and to get him a taxi. Overall cooperative with no insight or judgement r/t MH Sxs. S/I, H/I: Denies A/VH: Denies Sleep: None this shift ADL's: Requires direction and prompting Group attendance: NA Were Meds taken: Yes Any med S/E: None observed or reported Mental Status Exam Appearance: Casual in green scrubs Eye contact: Good Behavior: Cooperative, restless at times Speech: Fragmented sentences Mood: good Affect: Flat Thought process: Poverty of thought, thought blocking Thought Content: wanting to leave; get me a taxi Cognition: A&O x2 Insight: Poor Judgment: Poor Interventions PRN's used: Therapeutic interventions: Provided 1:1 assessment with therapeutic communication, encouraged conversation prompting responses, encouraged personal hygiene, medication administration/education/monitoring, and maintained LOS. Restraints/seclusion/emergency medication: N/A Justification of Continued Inpatient Treatment: Per JEM Gaona pt. continues to require a safe and supportive environment, medications were recently changed. Clear boundaries need to be enforced along with positive reinforcement.
[2021-08-25 20:00] VITALS: BP 130/83
[2021-08-25] MEDS: quetiapine 100mg tablet PO SCH (20:24)
--- NOTE | 2021-08-26 00:18 | NUR ---
Nursing Progress Note Legal hold: LPS Report received from Gerry LYONS with use of SBAR Why they are here: Pt admitted to [facility] for [facility] health today on LPS conservatorship for Schizophrenia. Pt had escaped from this unit 4-5 days earlier. Pt walked back into the emergency room this morning. Pt has wounds to bilateral thumbs that could be cold weather injury and to L foot. Pt has been off of his meds since leaving. Pt here for medication stabilization and placement. Assessment What has happened this shift: Pt in bed at shift change. Pt answered questions minimally and was hard to understand due to disorganized speech. This nurse asked pt if he would like to be reminded when snack time was but pt declined. Pt denies A/V H. Pt was reminded when snack time was just in case and still declined. Pt asked for juice with meds, pt was handed to orange juices. Pt took meds with applesauce w/o complications and went back to bed. S/I, H/I: Denies A/VH: Denies Sleep:See sleep hours ADL's: Requires direction and prompting Group attendance: No group in the evenings Were Meds taken: Yes Any med S/E: None observed or reported Mental Status Exam Appearance: Casual in green scrubs Eye contact: Good Behavior: Cooperative, restless at times Speech: Fragmented sentences Mood: isolated Affect: Flat Thought process: Poverty of thought, thought blocking Thought Content: sleep Cognition: A&O x2 Insight: Poor Judgment: Poor Interventions PRN's used:none Therapeutic interventions: Provided 1:1 assessment with therapeutic communication, encouraged conversation prompting responses, encouraged personal hygiene, medication administration/education/monitoring, and maintained LOS. Restraints/seclusion/emergency medication: N/A Justification of Continued Inpatient Treatment: Per JEM Gaona pt. continues to require a safe and supportive environment, medications were recently changed. Clear boundaries need to be enforced along with positive reinforcement.
[2021-08-26] MEDS: sertraline 25mg tablet PO SCH (08:10)
[2021-08-26] MEDS: QUEtiapine 25mg tablet PO SCH ×4 (08:10→20:50)
[2021-08-26] MEDS: atorvastatin 20mg tablet PO SCH (08:11)
[2021-08-26] MEDS: docusate sod 100mg capsule PO SCH ×2 (08:11→20:50)
[2021-08-26] MEDS: OLANZapine 5mg rapidly disint. tablet PO SCH (08:11)
[2021-08-26 08:28] VITALS: BP 106/69
--- NOTE | 2021-08-26 10:44 | NUR ---
PLACEMENT UPDATE Client's packet is in queue at [facility] (Covid Lockdown), [facility], [facility] (Covid Lockdown), [facility]. Client has been declined at [facility], [facility], [facility], [facility], and [facility]. JAYCEE Aiken
[2021-08-26] MEDS: lactose-reduced food (Ensure Enlive) - 237ml bottle PO SCH (17:10)
--- NOTE | 2021-08-26 17:15 | NUR ---
Nursing Progress Note Legal hold: LPS Report received from Stan ELI with use of SBAR: Why they are here: Pt admitted to [place] for Behavioral health today on LPS conservatorship for Schizophrenia. Pt had escaped from this unit 4-5 days earlier. Pt walked back into the emergency room this morning. Pt has wounds to bilateral thumbs that could be cold weather injury and to L foot. Pt has been off of his meds since leaving. Pt here for medication stabilization and placement. Assessment What has happened this shift: Patient is resting quietly in bed at the start of the shift. Awakened for breakfast. Cooperative with 1:1 assessment and medications. Continues on LOS monitoring r/t exit seeking behavior and previous elopements. Appears restless AEB pacing hallways and going from room to room only sitting for a short amount of time. Some ritualistic behavior are noted; pausing frequently, opening/ closing door. After breakfast patient spends time in his room and in the community room watching TV. Requests to pick a movie and wants to try using the remote. Patient has difficulty with the remote but appears to like trying. While watching the movie patient does some jumping and kicking as he sees in the movie. Spends only a short amount of time watching and then returns to his room. Makes attempts at conversation asking, How are you? then pats this screen writer on the shoulder. Unable to carry on the conversation as his speech is disorganized and sentences are often incomplete, Wanna Can we Never mind. S/I, H/I: Denies A/VH: Denies Sleep: 2 hours in the morning. Rests frequently in bed but does not appear to be sleeping. ADL's: Independent Group attendance: NA Were Meds taken: Yes Any med S/E: None observed or reported. Mental Status Exam Appearance: Young man, short hair, neat, clean, wearing green unit scrubs. Eye contact: Intense Behavior: Cooperative, restless, ritualistic Speech: Fragmented, disorganized Mood: Good. Affect: Flat Thought process: Disorganized, possible thought blocking. Thought Content: Meeting needs. Wants to leave. Cognition: A&O x2 to self and place Insight: Poor Judgment: Poor Interventions PRN's used: None Therapeutic interventions: Provided 1:1 assessment with therapeutic communication, encouraged conversation prompting responses, encouraged personal hygiene, medication administration/education/monitoring, and maintained LOS. Restraints/seclusion/emergency medication: N/A Justification of Continued Inpatient Treatment: Per JEM Gaona pt. continues to require a safe and supportive environment, medications were recently changed. Clear boundaries need to be enforced along with positive reinforcement.
[2021-08-26 19:59] VITALS: BP 112/76
[2021-08-26] MEDS: quetiapine 100mg tablet PO SCH (20:51)
--- NOTE | 2021-08-27 03:00 | NUR ---
Nursing Progress Note Legal hold: LPS Report received from ELOY Garrett with use of SBAR: Why they are here: Pt admitted to [place] for [facility] health on LPS conservatorship for Schizophrenia. Pt had escaped from this unit 4-5 days earlier. Pt walked back into the emergency room. Pt has wounds to bilateral thumbs that could be cold weather injury and to L foot. Pt has been off of his meds since leaving. Pt here for medication stabilization and placement. Assessment: What has happened this shift: Pt noted to be laying in his bed at the start of the shift. His speech is disorganized and incomprehensible most of the time. He answers questions inappropriately and with single-word responses that are unrelated to the questions. He seemed to deny any audio or visual hallucinations with his response to questioning. He did briefly engage in some conversation and was able to verbalized that his favorite subject is math. At the time of med-pass, I prepared his medications where he could see. After I completed preparing the medicines by putting the crushed pills in a small amount of applesauce, he stated, "I don't want any red medicine" referring to the docusate sodium capsule. He then stated, "I decline, I refuse all medicines." He said he saw me squeeze the red capsule in his pills and his medicines were poisoned. He cursed at the staff and repeatedly refused to take the medicines. It took some encouragement by 3 staff members to get him to agree to take his medicines. He took one spoonful of applesauce with the medicines and drank one sip of water. He then said, "leave me alone, get out." Shortly after leaving the room he was heard flushing the toilet in the bathroom (possibly trying to throw up/spit out the medicines). With his examination he did not appear to be having any internal conversations or overt hallucinations. He does have delusions about his medicines being poisoned He continues on LOS monitoring r/t exit seeking behavior and previous elopements. He spent most of the shift in his room, only coming out once to request a snack S/I, H/I: Denies A/VH: Denies and he was not observed having conversations with himself Sleep: Sleeping at the time of this note. ADL's: Independent Group attendance: NA Were Meds taken: Yes Any med S/E: None observed or reported. However he may have tried to spit out or throw up his night time medicines Mental Status Exam Appearance: Young man, fairly groomed, wearing green unit scrubs. Eye contact: None (he has strabismus to the left eye). He stares away/turns his head when responding to questions Behavior: Initially was calm, then got agitated when it came time to take his medicines. He said his medicines were being poisoned Speech: Fragmented, disorganized, inappropriate one-word responses most of the time Mood: Ok Affect: Flat Thought process: Disorganized, possible thought blocking. Thought Content: Thinks his medicines are being poisoned. Does not want red medicine Cognition: A&O x2 to self and situation Insight: Poor Judgment: Poor Interventions: PRN's used: None -Prepared his medicines where he could see. I do not advise that this be done in the future. -I do recommend giving his medicines in a small amount of applesauce. -Also I recommend having him remain where he can be observed for 5-10 minutes after taking the medicines to ensure he does not try to spit out/throw up the meds -I will request that his docusate sodium capsules be changed to liquid docusate Therapeutic interventions: 1:1 assessment with therapeutic communication, encouraged conversation prompting responses, had staff who are familiar with him encourage him to take his medications, medication administration/education/monitoring, and maintained LOS. 1:1 sitter due to elopement risk Restraints/seclusion/emergency medication: N/A Justification of Continued Inpatient Treatment: Pt. continues to require a safe/supportive environment, and medications management. Clear boundaries need to be enforced along with positive reinforcement as well as continued monitoring due to risk of elopement
[2021-08-27] MEDS: QUEtiapine 25mg tablet PO SCH ×4 (08:02→20:40)
[2021-08-27] MEDS: lactose-reduced food (Ensure Enlive) - 237ml bottle PO SCH ×2 (08:02→17:34)
[2021-08-27] MEDS: docusate sod 100mg capsule PO SCH (08:03)
[2021-08-27] MEDS: atorvastatin 20mg tablet PO SCH (08:03)
[2021-08-27] MEDS: OLANZapine 5mg rapidly disint. tablet PO SCH (08:03)
[2021-08-27] MEDS: sertraline 25mg tablet PO SCH (08:03)
[2021-08-27 08:21] VITALS: BP 109/73
--- NOTE | 2021-08-27 11:43 | NUR ---
Reassessment: PO intake continues to fluctuate though intake of meals slightly more consistent with mostly 50% PO intake with occasional 0-25%. Pt continues to have fluctuating acceptance of snacks per fuels engineer. Noted pt has been refusing Ensure Enlive since 08/23. Recommend discontinuing ONS if pt continues to refuse. Despite fluctuations in PO intake weight has remained stable. LBM 08/25, with routine Colace BID though pt does refuse at times per fuels engineer. Will continue to follow closely and make recommendations as appropriate. Recommendations: 1. Continue regular diet 2. Ensure Enlive BID; Discontinue ONS if pt continues to refuse 3. Encourage PO intake of meals/ONS/snacks 4. Routine bowel care 5. Weekly scaled weights Addendum: 08/27/21 at [address] Amended: Links added.
--- NOTE | 2021-08-27 17:15 | NUR ---
Nursing Progress Note Legal hold: LPS Report received from Justyna ELI with use of SBAR Why they are here: Pt admitted to [facility] for [facility] today on LPS conservatorship for Schizophrenia. Pt had escaped from this unit 4-5 days earlier. Pt walked back into the emergency room this morning. Pt has wounds to bilateral thumbs that could be cold weather injury and to L foot. Pt has been off of his meds since leaving. Pt here for medication stabilization and placement. Assessment What has happened this shift: Patient is resting quietly in bed at the start of the shift. Continues on LOS monitoring r/t prior elopements and exit seeking behavior. States, Can I go to the mission. Refuses Colace. States, Its poison. Attempted to educate the patient on the purpose of Colace. He states several times, Dont need it. notified who gives a new order to D/C Colace. Cooperative with all other medications and with 1:1 assessment. Eats breakfast in the community room and interacts appropriately with staff and peers. Eats very little even with encouragement. After breakfast he isolates in his room. Just prior to lunch the patient paces the unit. Eats lunch in the community room then asks this nurse for his medication stating, Have my meds? Just not the red. Takes medication then returns to his room. Paces the bernard briefly prior to dinner, but generally isolates to his room. S/I, H/I: Denies A/VH: Denies Sleep: 2 hours in the morning. Rests frequently in bed but does not appear to be sleeping. ADL's: Independent Group attendance: NA Were Meds taken: Yes Any med S/E: None observed or reported. Mental Status Exam Appearance: Young man, short hair, neat, clean, wearing green unit scrubs. Eye contact: Good Behavior: Cooperative, restless, ritualistic Speech: Fragmented, disorganized Mood: Good. Affect: Flat Thought process: Disorganized, possible thought blocking. Thought Content: Wanting to leave. Cognition: A&O x2 to self and place Insight: Poor Judgment: Poor Interventions PRN's used: None Therapeutic interventions: Provided 1:1 assessment with therapeutic communication, encouraged conversation prompting responses, encouraged personal hygiene, medication administration/education/monitoring, and maintained LOS. Restraints/seclusion/emergency medication: N/A Justification of Continued Inpatient Treatment: Per JEM Gaona pt. continues to require a safe and supportive environment, medications were recently changed. Clear boundaries need to be enforced along with positive reinforcement.
[2021-08-27 20:00] VITALS: BP 117/80
[2021-08-27] MEDS: quetiapine 100mg tablet PO SCH (20:40)
--- NOTE | 2021-08-28 02:24 | NUR ---
Nursing Progress Note [place] Legal hold: LPS Report received from Gerry ELI with use of SBAR Why they are here: Pt admitted to [facility] for [facility] health today on LPS conservatorship for Schizophrenia. Pt had escaped from this unit 4-5 days earlier. Pt walked back into the emergency room this morning. Pt has wounds to bilateral thumbs that could be cold weather injury and to L foot. Pt has been off of his meds since leaving. Pt here for medication stabilization and placement. Assessment What has happened this shift: Patient is in bed resting at change of shift. Continues on LOS monitoring r/t prior elopements and exit seeking behavior. Pt was cooperative with assessment and was asking if he could have a free ticket. Pt up for snacks and took all medications without issue. Asked how pt was doing/feeling and pt responded I dont know. Pt was left in room to rest before falling asleep shortly after med pass. S/I, H/I: Denies A/VH: Denies Sleep: . ADL's: Independent Group attendance: NA Were Meds taken: Yes Any med S/E: None observed or reported. Mental Status Exam Appearance: Young man, short hair, neat, clean, wearing green unit scrubs. Eye contact: Good Behavior: Cooperative, restless, ritualistic Speech: Fragmented, disorganized Mood: Good. Affect: Flat Thought process: Disorganized, possible thought blocking. Thought Content: Wanting to leave. Cognition: A&O x2 to self and place Insight: Poor Judgment: Poor Interventions PRN's used: None Therapeutic interventions: Provided 1:1 assessment with therapeutic communication, encouraged conversation prompting responses, encouraged personal hygiene, medication administration/education/monitoring, and maintained LOS. Restraints/seclusion/emergency medication: N/A Justification of Continued Inpatient Treatment: Per JEM Gaona pt. continues to require a safe and supportive environment, medications were recently changed. Clear boundaries need to be enforced along with positive reinforcement.
[2021-08-28] MEDS: QUEtiapine 25mg tablet PO SCH ×4 (07:22→19:52)
[2021-08-28] MEDS: atorvastatin 20mg tablet PO SCH (07:22)
[2021-08-28] MEDS: OLANZapine 5mg rapidly disint. tablet PO SCH (07:22)
[2021-08-28] MEDS: lactose-reduced food (Ensure Enlive) - 237ml bottle PO SCH ×2 (07:22→17:44)
[2021-08-28] MEDS: sertraline 25mg tablet PO SCH (07:22)
[2021-08-28 08:04] VITALS: BP 106/73
--- NOTE | 2021-08-28 17:13 | NUR ---
Nursing Progress Note: Legal hold: LPS Report received from ELOY Jansen with use of SBAR Why they are here: Pt admitted to [place] for [facility] health today on LPS conservatorship for Schizophrenia. Pt had escaped from this unit 4-5 days earlier. Pt walked back into the emergency room this morning. Pt has wounds to bilateral thumbs that could be cold weather injury and to L foot. Pt has been off of his meds since leaving. Pt here for medication stabilization and placement. Assessment What has happened this shift: Received patient while he was ambulating in the dining room, and remains with a staff member who is in line of sight of the patient at all times due to attempts and success in eloping from this facility twice since admission. Patient appears pale, and is answering questions with multiple words that can be difficult to understand. Medications crushed and given to the patient in applesauce. Patient stated No more in applesauce. Patient eating meals in the dining room, and gets snacks at appropriate times. Patient took a morning and afternoon nap. No untoward events occurred during this shift. Patient has been cooperative and respectful at all times. No attempts made to elope. S/I, H/I: Denies A/VH: Denies Sleep: 7.50. ADL's: Independent Group attendance: No Group Meeting held Today. Were Meds taken: Yes, slight hesitation due to crushed medications put in applesauce, but eventually took all medications. Any med S/E: None observed or reported. Mental Status Exam Appearance: Young man, short hair, neat, clean, wearing green unit scrubs. Eye contact: Good Behavior: Cooperative, restless, ritualistic Speech: Fragmented, disorganized Mood: Doing Good. Affect: Flat Thought process: Disorganized, possible thought blocking. Thought Content: Wanting to leave. Cognition: A&O x2 to self and place Insight: Poor Judgment: Poor Interventions PRN's used: None Therapeutic interventions: Provided 1:1 assessment with therapeutic communication, encouraged conversation prompting responses, encouraged personal hygiene, medication administration/education/monitoring, and maintained LOS. Restraints/seclusion/emergency medication: N/A Justification of Continued Inpatient Treatment: Per JEM Gaona pt. continues to require a safe and supportive environment, medications were recently changed. Clear boundaries need to be enforced along with positive reinforcement.
[2021-08-28 19:23] VITALS: BP 117/80
[2021-08-28] MEDS: quetiapine 100mg tablet PO SCH (19:52)
--- NOTE | 2021-08-29 02:56 | NUR ---
Nursing Progress Note: [place] Legal hold: LPS Report received from Gerry LYONS with use of SBAR Why they are here: Pt admitted to [place] for Behavior[facility] health today on LPS conservatorship for Schizophrenia. Pt had escaped from this unit 4-5 days earlier. Pt walked back into the emergency room this morning. Pt has wounds to bilateral thumbs that could be cold weather injury and to L foot. Pt has been off of his meds since leaving. Pt here for medication stabilization and placement. Assessment What has happened this shift: Received patient in room at change of shift. Continues on LOS monitoring r/t prior elopements and exit seeking behavior. Tried engaging in conversation with patient about favorite movies or sports that he likes to watch and he did say he liked watching baseball. At snack time the patient dropped all his snacks in the hallway. When asked by the PCT to pick them up the pt refused. Pt took all HS medications crushed in yogurt without any issue. S/I, H/I: Denies A/VH: Denies Sleep: ADL's: Independent Group attendance: Were Meds taken: Yes Any med S/E: None observed or reported. Mental Status Exam Appearance: Young man, short hair, neat, clean, wearing green unit scrubs. Eye contact: Good Behavior: Cooperative, restless, ritualistic Speech: Fragmented, disorganized Mood: Doing Good. Affect: Flat Thought process: Disorganized, possible thought blocking. Thought Content: Wanting to leave. Cognition: A&O x2 to self and place Insight: Poor Judgment: Poor Interventions PRN's used: None Therapeutic interventions: Provided 1:1 assessment with therapeutic communication, encouraged conversation prompting responses, encouraged personal hygiene, medication administration/education/monitoring, and maintained LOS. Restraints/seclusion/emergency medication: N/A Justification of Continued Inpatient Treatment: Per JEM Gaona pt. continues to require a safe and supportive environment, medications were recently changed. Clear boundaries need to be enforced along with positive reinforcement.
[2021-08-29] MEDS: OLANZapine 5mg rapidly disint. tablet PO SCH (07:22)
[2021-08-29] MEDS: QUEtiapine 25mg tablet PO SCH ×4 (07:22→21:19)
[2021-08-29] MEDS: atorvastatin 20mg tablet PO SCH (07:22)
[2021-08-29] MEDS: sertraline 25mg tablet PO SCH (07:22)
[2021-08-29 08:00] VITALS: BP 115/80
--- NOTE | 2021-08-29 17:16 | NUR ---
Nursing Progress Note: Jozef Matthew Legal hold: LPS Report received from Justyna SREEDHAR with use of SBAR Why they are here: Pt admitted to [place] for Behavioral health on LPS conservatorship for Schizophrenia. Pt had escaped from this unit 4-5 days earlier. Pt walked back into the emergency room this morning. Pt has wounds to bilateral thumbs that could be cold weather injury and to L foot. Pt here for medication stabilization and placement. Assessment What has happened this shift: Pt. received on LOS and sleeping in his room, he woke to receive his medication c/o the applesauce and 1:1 assessment completed at the bedside. Pt. refused to answer questions r/t SI, HI, but did deny A/H, V/H by shaking his head up and down. Pt. presents as disorganized and at times presented with word salad. When assessing for last BM he stated yes, no, can we. Pt. is a poor historian of his own bodily functions. Pt. ate breakfast in the MDR with cohorts, only taking a few bites; poor intake has continues. Pt. observed pacing in the bernard intermittently, he ambulates in obsessive patterns and hops forward and steps back. Pt. spends most of the shift self-isolating and doesnt interact socially with cohorts, he presents as anxious and suspicious at times. He presents as disorganized though out and was observed standing at odd places in his room for long periods of times. Poor intake throughout the shift, presents with dry lips; entry writer encouraged fluids. No door checking but randomly running up to jansen LOS continues S/I, H/I: Denies A/VH: Denies Sleep: Napped intermittently. ADL's: Independent Group attendance: No Were Meds taken: Yes Any med S/E: None observed or reported. Mental Status Exam Appearance: Young man, short hair, neat, clean, wearing green unit scrubs. Eye contact: Good Behavior: Cooperative, restless, ritualistic Speech: Fragmented, disorganized Mood: Good. Affect: Flat Thought process: Disorganized, possible thought blocking. Thought Content: Wanting to leave. Cognition: A&O x2 to self and place Insight: Poor Judgment: Poor Interventions PRN's used: None Therapeutic interventions: Provided 1:1 assessment with therapeutic communication, encouraged conversation prompting responses, encouraged personal hygiene, medication administration/education/monitoring, and maintained LOS. Restraints/seclusion/emergency medication: N/A Justification of Continued Inpatient Treatment: JEM Cervantes pt. continues to require a safe and supportive environment, medications were recently changed. Clear boundaries need to be enforced along with positive reinforcement.
[2021-08-29 20:23] VITALS: BP 118/79
[2021-08-29] MEDS: quetiapine 100mg tablet PO SCH (21:18)
--- NOTE | 2021-08-30 02:52 | NUR ---
Nursing Progress Note: Legal hold: LPS Report received from Gerry ELI with use of SBAR Why they are here: Pt admitted to [place] for [facility] health on LPS conservatorship for Schizophrenia. Pt had escaped from this unit 4-5 days earlier. Pt walked back into the emergency room this morning. Pt has wounds to bilateral thumbs that could be cold weather injury and to L foot. Pt here for medication stabilization and placement. Assessment What has happened this shift: Pt in room awake at start of shift. Sitter in [place]ard outside of room to prevent pt elopement. Pt came out of room to get snack in group room. Pt disorganized, answers to questions often inappropriate. Pt took meds but then refused to open mouth or blow with cheeks enough for assessment if he was cheeking. Pt kept saying things like "youre weird" and you're crazy". After about 7 minutes (by then the pills probably dissolved) he finally opened his mouth adequately. S/I, H/I: Denies A/VH: Denies Sleep: asleep at this time ADL's: Independent Group attendance: No Were Meds taken: Yes, difficult to get pt to open mouth to assess for cheeking. Any med S/E: None observed or reported. Mental Status Exam Appearance: Young man, short hair, neat, clean, wearing green unit scrubs. Eye contact: Good Behavior: Cooperative, restless, ritualistic Speech: Fragmented, disorganized Mood: Good. Affect: Flat Thought process: Disorganized, possible thought blocking. Thought Content: Wanting to leave. Cognition: A&O x2 to self and place Insight: Poor Judgment: Poor Interventions PRN's used: None Therapeutic interventions: Provided 1:1 assessment with therapeutic communication, encouraged conversation prompting responses, encouraged personal hygiene, medication administration/education/monitoring, and maintained LOS. Restraints/seclusion/emergency medication: N/A Justification of Continued Inpatient Treatment: Per JEM Goana pt. continues to require a safe and supportive environment, medications were recently changed. Clear boundaries need to be enforced along with positive reinforcement.
[2021-08-30] MEDS: sertraline 25mg tablet PO SCH (07:50)
[2021-08-30] MEDS: OLANZapine 5mg rapidly disint. tablet PO SCH (07:50)
[2021-08-30] MEDS: atorvastatin 20mg tablet PO SCH (07:50)
[2021-08-30] MEDS: QUEtiapine 25mg tablet PO SCH ×4 (07:50→20:16)
[2021-08-30 08:47] VITALS: BP 108/72
--- NOTE | 2021-08-30 10:35 | NUR ---
Reassessment: Pt PO intake ~7.5% avg x 10 meals. PO intake of ONS ~23% avg through 08/28, not meeting estimated nutritional needs; ONS d/c on 08/29. international guest coordinator d/w RN regarding poor PO intake and subsequent possible need for enteral nutrition; RN stated PO intake continues to be poor however, pt continues to have high consumption of snacks. RN stated they would attempt to document further pt snack intake. Pt could benefit from TF to help meet kcal/protein needs. Despite fluctuations in PO intake, wt has remained stable. LBM 08/29, with routine Colace BID though pt does refuse at times per livery car driver.Will continue to follow closely and make recommendations as appropriate. Recommendations: 1. Continue regular diet as tolerated 2. If PO remains poor, initiate nutrition support if MD agreeable and within POC 3. Encourage PO intake of meals/snacks 4. Routine bowel care 5. Weekly scaled weights Addendum: 08/30/21 at 1036 by Osmani Norton - Transition Specialist RD Amended: Links added. Addendum: 08/30/21 at [address] I have reviewed assessment by Transition Specialist
[2021-08-30] MEDS: LORazepam 1 MG tablet PO PRN ×2 (14:08→20:16)
[2021-08-30 20:00] VITALS: BP 126/88
[2021-08-30] MEDS: quetiapine 100mg tablet PO SCH (20:15)
--- NOTE | 2021-08-31 01:16 | NUR ---
Nursing Progress Note: Legal hold: LPS Report received from Gerry ELI with use of SBAR Why they are here: Pt admitted to [place] for [facility] health on LPS conservatorship for Schizophrenia. Pt had escaped from this unit 4-5 days earlier. Pt walked back into the emergency room this morning. Pt has wounds to bilateral thumbs that could be cold weather injury and to L foot. Pt here for medication stabilization and placement. Assessment What has happened this shift: The patient has been fairly isolative to his room with the lights out. He is one to one with staff 2nd to elopement risk and behaviors. He was cooperative with the line of sight. He did have to be redirected during the snack time because he told the other patients to hurry and get out of the way and he accepted the redirection without incident. He took his medications crushed and placed in applesauce. He stated that if he was discharged he would, "I'll go to the [facility]. I have a Alfredito in the shop. I will get my stuff together and go race" He asked, "is this the CR" and he was reminded that he was on the inpatient unit. He gives halting replies. He was pleasant during the evening assessment. He denies having a mental illness. He stated he is hearing voices and when asked what they said he replied, "marilee laboy" He will remain on the inpatient unit until a suitable placement can be found for him.
[2021-08-31 07:48] VITALS: BP 105/67
[2021-08-31] MEDS: QUEtiapine 25mg tablet PO SCH ×4 (08:16→19:51)
[2021-08-31] MEDS: OLANZapine 5mg rapidly disint. tablet PO SCH (08:16)
[2021-08-31] MEDS: atorvastatin 20mg tablet PO SCH (08:16)
[2021-08-31] MEDS: sertraline 25mg tablet PO SCH (08:16)
--- NOTE | 2021-08-31 17:19 | NUR ---
Nursing Progress Note: Legal hold: LPS Report received from Vanesa LYONS with use of SBAR Why they are here: Pt admitted to [place] for [facility] health on LPS conservatorship for Schizophrenia. Pt had escaped from this unit 4-5 days earlier. Pt walked back into the emergency room this morning. Pt has wounds to bilateral thumbs that could be cold weather injury and to L foot. Pt here for medication stabilization and placement. Assessment What has happened this shift: Pt. received on LOS sleeping in his room, he woke to have VS obtained. Medications administered and 1:1 assessment completed. Pt. appears disorganized, having difficulty remembering his own birthday. Pt. seen pacing the halls and watching tv in the community room. Pt. denies SI/HI as well as A/VH. Pt. attended breakfast eating only a small portion of the breakfast persian and about 50% of his lunch. Pt. appears to have thought blocking when conversing with staff, unable to articulate what he is trying to say. Pt. continues to have a shuffled gait, with skipping and hopping backwards and forwards. S/I, H/I: Denies A/VH: Denies Sleep: 7.25 hrs on NOC sleep assessment, no naps this shift. ADL's: Independent Group attendance: Attended morning group but was somewhat disruptive. Were Meds taken: Yes Any med S/E: None observed or reported. Mental Status Exam Appearance: Young man, short hair, wearing green unit scrubs and a face mask. Eye contact: Good Behavior: Cooperative, restless, ritualistic Speech: Fragmented, disorganized, monotone. Mood: Good. Affect: Flat Thought process: Disorganized, possible thought blocking. Thought Content: Requesting to be discharged to board and care. Cognition: A&O x2 to self and place Insight: Poor Judgment: Poor Interventions PRN's used: None Therapeutic interventions: Provided 1:1 assessment with therapeutic communication, encouraged conversation prompting responses, encouraged personal hygiene, medication administration/education/monitoring, and maintained LOS. Restraints/seclusion/emergency medication: N/A Justification of Continued Inpatient Treatment: Per JEM Gaona pt. continues to require a safe and supportive environment, medications were recently changed. Clear boundaries need to be enforced along with positive reinforcement.
[2021-08-31 19:38] VITALS: BP 126/88
[2021-08-31] MEDS: quetiapine 100mg tablet PO SCH (19:51)
[2021-08-31] MEDS: temazepam 15mg capsule PO PRN (20:35)
[2021-08-31] MEDS: LORazepam 1 MG tablet PO PRN (20:36)
--- NOTE | 2021-09-01 01:28 | NUR ---
Nursing Progress Note: Legal hold: LPS Report received from Fanny Gonsalves RN Why they are here: Pt admitted to [place] for [facility] health on LPS conservatorship for Schizophrenia. Pt had escaped from this unit 4-5 days earlier. Pt walked back into the emergency room this morning. Pt has wounds to bilateral thumbs that could be cold weather injury and to L foot. Pt here for medication stabilization and placement. Assessment The patient isolated to his room the majority of the shift. He appeared distressed and asked "Can you get me out of here" He was very irritable and making verbally antagonistic comments to the staff that was one to one with him. He is unable to formulate any kind of realistic plan for food, mcfp or clothing and remains on LPS conservatorship. When asked how he would provide housing for himself he replied, "I could go to your house" He is making statements about having large quantities of money that the state would provide "for my injury or other stuff" He denies having a mental illness. He is resistive to medications and all of his medications have to be crushed and placed in applesauce. His eye contact is very poor and his replies are choppy and poorly organized. His insight and judgement are very poor. Medication adjustments continue. One to one continues as the patient is a high AWOL risk.
[2021-09-01] MEDS: OLANZapine 5mg rapidly disint. tablet PO SCH (07:58)
[2021-09-01] MEDS: atorvastatin 20mg tablet PO SCH (07:58)
[2021-09-01] MEDS: sertraline 25mg tablet PO SCH (07:59)
[2021-09-01] MEDS: QUEtiapine 25mg tablet PO SCH ×4 (07:59→20:09)
[2021-09-01 08:00] VITALS: BP 115/83
--- NOTE | 2021-09-01 10:15 | NUR ---
PLACEMENT UPDATE Sent updated notes (08/22/21-08/31/21) to [place] office for placement purposes. JAYCEE Aiken
--- NOTE | 2021-09-01 17:01 | NUR ---
Legal hold: [facility] Client on involuntary status for GD Report received from nurse with use of SBAR: ELOY Alexis Why are they here: [facility] conservators[facility] for Schizophrenia. Pt had escaped from this unit 4-5 days earlier. Pt walked back into the emergency room this morning. Pt has wounds to bilateral thumbs that could be cold weather injury and to L foot. Pt has been off of his meds since leaving. Pt immediately requests to go to lower level of care, return to [place] or leave today. Pt here for medication stabilization and placement. Assessment What has happened this shift: Received pt. sleeping in bed at the beginning of the shift, he remains on LOS r/t behaviors and elopement precautions. Pt. requires ongoing direction and encouragement to preform ADLs and attend meals. Prior to eating, he was observed to be pacing in the hallway carrying a cup of water which he proceeded to drop. It was not evident whether this act was intentional, however pt. consented to cleaning up the spill with encouragement. After breakfast, pt. retreated back to his room as is his routine, he continues to present as restless and impulsive and repeatedly attempts to close his door requiring frequent redirection. Pt. continues to require clear boundaries. This engineering technical writer attempted to complete 1:1 at bedside, pt. continues to present with fragmented speech and indecisiveness. When asked questions he will at times respond, "Yes, no, yes, no." He denies any MH s/s, and does not appear to be internally preoccupied. Pt. perseverates on discharge and getting to smoke "[place]." Pt. again isolated in bed throughout much of the shift, napping intermittently. He was also observed to get out of bed, stand for a few moments, and then get back into bed at intervals r/t what appeared to be OCD behaviors. No adverse behaviors, such as spitting out medications were exhibited, and pt. did not attempt to AWOL this shift. S/I, H/I: Denies A/VH: Denies, does not appear to be internally preoccupied Sleep: Sleep hours are 7. and pt. naps intermittently ADL's: Requires direction and encouragement. Remains on LOS r/t behaviors and risk of AWOL Group attendance: No Were meds taken: Yes [facility] Any med S/E: None Mental Status Exam Appearance: Hair somewhat disheveled r/t laying in bed, dressed in green scrubs Eye contact: Fair Behavior: Cooperative, restless, guarded, self-isolative, and impulsive Speech: Fragmented Mood: Guarded Affect: Blunted Thought process: Poverty of thought with some disorganization/indecision Thought Content:Perseveration on desire to discharge Cognition: A&O x3 Insight: Poor Judgment: Poor Interventions PRN's used: None Therapeutic interventions: Maintained a safe and supportive environment, ensured contract for safety, provided clear and simple instructions, provided direction and encouragement regarding performance of ADLs, monitored behaviors and maintained clear boundaries, provided positive reinforcement for positive behaviors, and maintained LOS. Restraints/seclusion/emergency medication: N/A Justification of Continued Inpatient Treatment: JEM Cervantes pt. continues to require a safe and supportive environment. He remains on LOS r/t behaviors and risk of AWOL.
[2021-09-01 19:27] VITALS: BP 103/71
[2021-09-01] MEDS: quetiapine 100mg tablet PO SCH (20:09)
--- NOTE | 2021-09-01 23:24 | NUR ---
Legal hold: [facility] Client on involuntary status for GD Report received from nurse with use of SBAR: Major LYONS Why are they here: [facility] LPS conservatorship for Schizophrenia. Pt had escaped from this unit 4-5 days earlier. Pt walked back into the emergency room this morning. Pt has wounds to bilateral thumbs that could be cold weather injury and to L foot. Pt has been off of his meds since leaving. Pt immediately requests to go to lower level of care, return to [place] or leave today. Pt here for medication stabilization and placement. Assessment What has happened this shift: Received pt. sleeping in bed at the beginning of the shift, he remains on LOS r/t behaviors and elopement precautions. Pt. requires ongoing direction and encouragement to preform ADLs and attend meals. Pt up in the hallway stating he does not want his meds crushed in applesauce. He stated he needs to get out of this place and get a job. Pt up to community room for snacks and took all HS medications without issue. Pt isolated to room the rest of the evening. S/I, H/I: Denies A/VH: Denies, does not appear to be internally preoccupied Sleep: ADL's: Requires direction and encouragement. Remains on LOS r/t behaviors and risk of AWOL Group attendance: No Were meds taken: Yes Any med S/E: None Mental Status Exam Appearance: Hair somewhat disheveled r/t laying in bed, dressed in green scrubs Eye contact: Fair Behavior: Cooperative, restless, guarded, self-isolative, and impulsive Speech: Fragmented Mood: Guarded Affect: Blunted Thought process: Poverty of thought with some disorganization/indecision Thought Content :Perseveration on desire to discharge Cognition: A&O x3 Insight: Poor Judgment: Poor Interventions PRN's used: None Therapeutic interventions: Maintained a safe and supportive environment, ensured contract for safety, provided clear and simple instructions, provided direction and encouragement regarding performance of ADLs, monitored behaviors and maintained clear boundaries, provided positive reinforcement for positive behaviors, and maintained LOS. Restraints/seclusion/emergency medication: N/A Justification of Continued Inpatient Treatment: Per JEM aGona pt. continues to require a safe and supportive environment. He remains on LOS r/t behaviors and risk of AWOL.
[2021-09-02 08:00] VITALS: BP 108/69
[2021-09-02] MEDS: sertraline 25mg tablet PO SCH (08:38)
[2021-09-02] MEDS: atorvastatin 20mg tablet PO SCH (08:38)
[2021-09-02] MEDS: QUEtiapine 25mg tablet PO SCH ×4 (08:38→20:19)
[2021-09-02] MEDS: OLANZapine 5mg rapidly disint. tablet PO SCH (08:38)
--- NOTE | 2021-09-02 09:15 | NUR ---
PLACEMENT UPDATE [facility] is seeking [facility] level of care. Clients packet is in the queue at [facility] (Covid lockdown, unknown date of re-open), [facility], [facility] (Covid Lockdown until 09/07/21), and [facility]. Client has been declined at [facility] (AWOL risk/assaultive behaviors) and [facility] (does not do well at this facility). JAYCEE Aiken
--- NOTE | 2021-09-02 17:01 | NUR ---
Reassessment: PO intake remains poor, documented with 0-25% PO intake of meals and fluctuating acceptance of snacks. Pt continues to require frequent encouragement per automation clerk. Will trial shakes with meals to optimize PO intake, though pt would benefit from nutrition support given prolonged poor PO intake. Despite patterns in PO intake patient's weight has remained stable throughout LOS. LBM 09/01. Will continue to follow closely. Recommendations: 1. Continue regular diet 2. If PO remains poor, initiate nutrition support if MD agreeable and within POC 3. Trial milkshake TIDWM; Encourage PO intake of meals/snacks 4. Routine bowel care 5. Weekly scaled weights Addendum: 09/02/21 at [address] Amended: Links added.
--- NOTE | 2021-09-02 17:32 | NUR ---
Nursing Progress Note: [place] Legal hold: [facility] Client on involuntary status for GD Report received from nurse with use of SBAR: ELOY Richards Why are they here: Pt admitted to [place] [facility] today on LPS conservatorship for Schizophrenia. Pt had escaped from this unit 4-5 days earlier. Pt walked back into the emergency room this morning. Pt has wounds to bilateral thumbs that could be cold weather injury and to L foot. Pt has been off of his meds since leaving. Pt immediately requests to go to lower level of care, return to [place] or leave today. Pt here for medication stabilization and placement. Assessment What has happened this shift: Patient received sleeping in his room at change of shift. He remains on LOS r/t behaviors and elopement precautions. Patient participated in the community room for breakfast, noted to have minimal PO intake despite encouragement and prompting. He was observed walking throughout the unit after breakfast. Patient was compliant with 1:1 assessment and routine medications. He continues to present as guarded, self-isolative, and repetitive. Patient was observed going to his room and repeatedly opening/ closing his door. Patient informed that door to room needs to remain open, however, he continues to close it throughout the day. Patient denies SI,HI, AH or VH. Does not appear to be responding to internal stimuli. Patient continues to present as disorganized, noted responding to questions with fragmented speech and indecisiveness. Patient was noted asking this process description writer if he could get out of here today, noted perseverating on discharge. Patient was given snacks and alternatives today due to documented meal refusals. He requires prompting and encouragement to eat anything. Patient was self-isolative to his room the majority of the day. He was noted sitting in the community room watching a movie with peers later in the day. Patient quickly lost interest and returned to his room where he was observed air punching. No attempts to AWOL noted this shift. He joined in the community room for meal times. S/I, H/I: Denies A/VH: Denies, does not appear to be internally preoccupied Sleep: Sleep hours are 7.75 per NOC shift, no naps noted on this shift ADL's: Requires direction and encouragement. Remains on LOS r/t behaviors and risk of AWOL Group attendance: None provided Were meds taken: Yes, with encouragement and prompting Any med S/E: None observed or reported Mental Status Exam Appearance: Clean, neat, dressed in green scrubs Eye contact: Fair Behavior: Cooperative, restless, guarded, self-isolative, and impulsive Speech: Fragmented Mood: Guarded Affect: Blunted Thought process: Poverty of thought with some disorganization/indecision Thought Content: Perseveration on desire to discharge. Meeting needs. Cognition: A&O x2 (not to time or situation) Insight: Poor Judgment: Poor Interventions PRN's used: None Therapeutic interventions: Maintained a safe and supportive environment, ensured contract for safety, provided clear and simple instructions, provided direction and encouragement regarding performance of ADLs, monitored behaviors and maintained clear boundaries, provided positive reinforcement for positive behaviors, and maintained LOS. Restraints/seclusion/emergency medication: N/A Justification of Continued Inpatient Treatment: JEM Cervantes pt. continues to require a safe and supportive environment. He remains on LOS r/t behaviors and risk of AWOL.
[2021-09-02] MEDS: quetiapine 100mg tablet PO SCH (20:19)
[2021-09-02 20:31] VITALS: BP 117/82
--- NOTE | 2021-09-03 02:22 | NUR ---
Nursing Progress Note: [place] Legal hold: [facility] Client on involuntary status for GD Report received from nurse with use of SBAR: ELOY Gonsalves Why are they here: [facility] LPS conservatorship for Schizophrenia. Pt had escaped from this unit 4-5 days earlier. Pt walked back into the emergency room this morning. Pt has wounds to bilateral thumbs that could be cold weather injury and to L foot. Pt has been off of his meds since leaving. Pt immediately requests to go to lower level of care, return to [place] or leave today. Pt here for medication stabilization and placement. Assessment What has happened this shift: Patient received sleeping in his room at change of shift. He remains on LOS r/t behaviors and elopement precautions. Nurse and sitter observed patient taking his night medications. S/I, H/I: Denies A/VH: Denies, does not appear to be internally preoccupied Sleep: will tally at the end of shift ADL's: Requires direction and encouragement. Remains on LOS r/t behaviors and risk of AWOL Group attendance: None provided Were meds taken: Yes, with encouragement and prompting Any med S/E: None observed or reported Mental Status Exam Appearance: Clean, neat, dressed in green scrubs Eye contact: Fair Behavior: Cooperative, restless, guarded, self-isolative, and impulsive Speech: Fragmented Mood: Guarded Affect: Blunted Thought process: Poverty of thought with some disorganization/indecision Thought Content: Perseveration on desire to discharge. Meeting needs. Cognition: A&O x2 (not to time or situation) Insight: Poor Judgment: Poor Interventions PRN's used: None Therapeutic interventions: Maintained a safe and supportive environment, ensured contract for safety, provided clear and simple instructions, provided direction and encouragement regarding performance of ADLs, monitored behaviors and maintained clear boundaries, provided positive reinforcement for positive behaviors, and maintained LOS. Restraints/seclusion/emergency medication: N/A Justification of Continued Inpatient Treatment: JEM Cervantes pt. continues to require a safe and supportive environment. He remains on LOS r/t behaviors and risk of AWOL.
[2021-09-03 07:15] VITALS: BP 107/76
[2021-09-03] MEDS: OLANZapine 5mg rapidly disint. tablet PO SCH (07:38)
[2021-09-03] MEDS: atorvastatin 20mg tablet PO SCH (07:38)
[2021-09-03] MEDS: sertraline 50mg tablet PO SCH (07:39)
[2021-09-03] MEDS: QUEtiapine 25mg tablet PO SCH ×4 (07:39→20:21)
--- NOTE | 2021-09-03 17:49 | NUR ---
Nursing Progress Note: Legal hold: LPS Client on involuntary status for GD Report received from ELOY Richards with use of SBAR. Why are they here: Pt admitted to [place] for Behavioral health today on LPS conservatorship for Schizophrenia. Pt had escaped from this unit 4-5 days earlier. Pt walked back into the emergency room this morning. Pt has wounds to bilateral thumbs that could be cold weather injury and to L foot. Pt has been off of his meds since leaving. Pt immediately requests to go to lower level of care, return to [place] or leave today. Pt here for medication stabilization and placement. Assessment What has happened this shift: Patient is resting quietly in bed at the start of the shift. Continues on LOS monitoring for previous elopements. Verbalize wanting to leave but no exit seeking behavior is observed at this time. Cooperative with morning medications and 1:1 assessment. Eats breakfast in the community room and interacts appropriately with staff and peers. Patient drops his water on the floor, but cleans it up when asked. Also drops his afternoon medications on the floor. Takes encouragement but patient is cooperative with taking his medication. States, I dont want it. Im good. Speech is fragmented but he is able to make his needs known. Spends time in his room and is noted pacing the unit at times. Watches TV in the rec room. Seeks out the provider and asks her, Can I go to the mission. In the afternoon the patient continues to watch TV in the rec room and pace the halls at times. S/I, H/I: Denies A/VH: Denies Sleep: 2 hours in the morning ADL's: Independent Group attendance: NA Were meds taken: Yes Any med S/E: None observed or reported Mental Status Exam Appearance: Young thin man, clean, neat, dressed in green scrubs Eye contact: good Behavior: Cooperative, restless, guarded, self-isolative, and impulsive Speech: Fragmented Mood: Good. Affect: Flat Thought process: Disorganized Thought Content: Wanting to leave Cognition: A&O x2 (not to time or situation) Insight: Poor Judgment: Poor Interventions PRN's used: None Therapeutic interventions: Maintained a safe and supportive environment, ensured contract for safety, provided clear and simple instructions, provided direction and encouragement regarding performance of ADLs, monitored behaviors and maintained clear boundaries, provided positive reinforcement for positive behaviors, and maintained LOS. Restraints/seclusion/emergency medication: N/A Justification of Continued Inpatient Treatment: JEM Cervantes pt. continues to require a safe and supportive environment. He remains on LOS r/t behaviors and risk of AWOL.
[2021-09-03 20:14] VITALS: BP 116/80
[2021-09-03] MEDS: quetiapine 100mg tablet PO SCH (20:21)
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
[2021-09-04] MEDS: sertraline 50mg tablet PO SCH (08:05)
[2021-09-04] MEDS: atorvastatin 20mg tablet PO SCH (08:05)
[2021-09-04] MEDS: QUEtiapine 25mg tablet PO SCH ×4 (08:05→20:40)
[2021-09-04] MEDS: OLANZapine 5mg rapidly disint. tablet PO SCH (08:05)
[2021-09-04 08:10] VITALS: BP 106/67
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
[2021-09-04 19:28] VITALS: BP 124/83
[2021-09-04] MEDS: quetiapine 100mg tablet PO SCH (20:40)
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
[2021-09-05] MEDS: QUEtiapine 25mg tablet PO SCH ×4 (07:43→20:19)
[2021-09-05] MEDS: OLANZapine 5mg rapidly disint. tablet PO SCH (07:43)
[2021-09-05] MEDS: sertraline 50mg tablet PO SCH (07:43)
[2021-09-05] MEDS: atorvastatin 20mg tablet PO SCH (07:43)
[2021-09-05 07:51] VITALS: BP 109/73
--- NOTE | 2021-09-05 11:23 | NUR ---
Reassessment: Pt PO intake ~25% of regular meals w/ shakes TIDWM and fluctuating acceptance of snacks; not meeting estimated nutritional needs. Pt continues to require frequent encouragement per brilliandeer lopper. software development intern d/w RN pt poor PO intake and need for increased encouragement of PO intake and subsequent need for nutrition support if PO does not improve. Also d/w RN recommendation for more recent CMP to help address pt nutritional condition. RN stated pt may benefit from increasing pt preferred foods and will inform MD of recommendation for new CMP. Will trial grilled cheese sandwiches at lunch and peanut butter and jelly sandwiches at dinner, though pt would benefit from nutrition support given prolonged poor PO intake. Despite patterns in PO intake, patient's weight has remained stable throughout LOS. LBM 09/05; bowel care available PRN. Will continue to follow closely. Recommendations: 1. Continue regular diet as tolerated 2. Grilled cheese sandwich at lunch, Peanut butter and jelly sandwich at dinner 3. Milkshake TIDWM; Encourage PO intake of meals/snacks 4. If PO remains poor, initiate nutrition support if MD agreeable and within POC 5. Recommend new CMP; last CMP 07/24 6. Routine bowel care 7. Weekly scaled weights Addendum: 09/05/21 at 1125 by Osmani Irby Ethanol Operations Manager RD Amended: Links added. Addendum: 09/05/21 at [address] I have reviewed assessment by hospital intern
--- NOTE | 2021-09-05 13:03 | NUR ---
PLACEMENT UPDATE Placement packet is in the queue at [facility], [facility], [facility], [facility], and [facility]. Sent updated notes (09/01-09/04/21) to [facility] office at their request. JAYCEE Aiken
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
[2021-09-05 20:11] VITALS: BP 132/80
[2021-09-05] MEDS: quetiapine 100mg tablet PO SCH (20:19)
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
[2021-09-06 08:00] VITALS: BP 121/79
[2021-09-06] MEDS: OLANZapine 5mg rapidly disint. tablet PO SCH (08:42)
[2021-09-06] MEDS: atorvastatin 20mg tablet PO SCH (08:42)
[2021-09-06] MEDS: QUEtiapine 25mg tablet PO SCH ×4 (08:42→20:09)
[2021-09-06] MEDS: sertraline 50mg tablet PO SCH (08:42)
[2021-09-06] MEDS: LORazepam 1 MG tablet PO PRN ×2 (08:53→20:08)
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
[2021-09-06] MEDS: quetiapine 100mg tablet PO SCH (20:08)
[2021-09-06 20:59] VITALS: BP 123/80
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
[2021-09-07 07:53] VITALS: BP 118/81
[2021-09-07] MEDS: sertraline 50mg tablet PO SCH (08:11)
[2021-09-07] MEDS: atorvastatin 20mg tablet PO SCH (08:11)
[2021-09-07] MEDS: QUEtiapine 25mg tablet PO SCH ×4 (08:11→20:02)
[2021-09-07] MEDS: OLANZapine 5mg rapidly disint. tablet PO SCH (08:11)
[2021-09-07] MEDS: NICOTINE POLACRILEX 2 MG LOZENGE BC PRN (11:59)
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
[2021-09-07] MEDS: temazepam 15mg capsule PO PRN (20:02)
[2021-09-07] MEDS: LORazepam 1 MG tablet PO PRN (20:02)
[2021-09-07] MEDS: quetiapine 100mg tablet PO SCH (20:02)
[2021-09-07 20:31] VITALS: BP 113/74
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
[2021-09-08] MEDS: sertraline 50mg tablet PO SCH (07:36)
[2021-09-08] MEDS: atorvastatin 20mg tablet PO SCH (07:37)
[2021-09-08] MEDS: QUEtiapine 25mg tablet PO SCH ×4 (07:37→20:40)
[2021-09-08] MEDS: OLANZapine 5mg rapidly disint. tablet PO SCH (07:37)
[2021-09-08 07:53] VITALS: BP 141/83
--- NOTE | 2021-09-08 11:05 | NUR ---
PLACEMENT UPDATE TAD is seeking [facility] level of care. Clients packet is in the queue at [facility] (Covid lockdown, unknown date of re-open), [facility], [facility] (Covid Lockdown), and [facility]. Client has been declined at [facility] (AWOL risk/assaultive behaviors) and [facility] (does not do well at this facility). JAYCEE Aiken
--- NOTE | 2021-09-08 15:04 | NUR ---
Reassessment: Pt PO intake ~47% of regular meals w/ shakes TIDWM, grilled cheese sandwiches w/ lunch, peanut butter and jelly sandwiches w/ dinner, and fluctuating acceptance of snacks; which meets 90% of est energy needs and 100% of est protein needs. Pt has trouble remaining seated during meals and will get up and leave and not return to the meal and pt continues to require frequent encouragement per studio engineer. IF PO intake is not consistently greater than 50% of meals, then pt may benefit from nutrition support. Despite patterns in PO intake, patient's weight has remained stable throughout LOS. LBM 09/07; bowel care available PRN. Will continue to follow closely. Recommendations: 1. Continue regular diet as tolerated 2. Grilled cheese sandwich at lunch, Peanut butter and jelly sandwich at dinner 3. Milkshake TIDWM; Encourage PO intake of meals/snacks 4. If PO remains poor, initiate nutrition support if MD agreeable and within POC 5. Recommend new CMP; last CMP 07/24 6. Routine bowel care 7. Weekly scaled weights Addendum: 09/08/21 at [address] Amended: Links added. Addendum: 09/08/21 at [address] I have reviewed assessment by internal communications manager
--- NOTE | 2021-09-08 17:21 | NUR ---
Nursing Progress Note: Legal hold: LPS Client on involuntary status for GD Report received from SREEDHAR Alexis with use of SBAR Why they are here: Pt admitted to [facility] for [facility] health on LPS conservatorship for Schizophrenia. Pt has escaped from this unit on two occasions resulting in bilateral thumbs, and Lt. foot cold weather injuries. Pt here for medication stabilization and placement. Assessment What has happened this shift: Patient is resting quietly in bed at the start of the shift. Awake prior to breakfast and slowly paces the unit. Interacts appropriately with staff and peers. No exit seeking behavior is noted. Cooperative with 1:1 assessment and medications. S/I, H/I: Denies A/VH: Denies Sleep: 1 hour in the morning ADL's: Independent Group attendance: NA Were meds taken: Yes Any med S/E: None observed or reported Mental Status Exam Appearance: Young male, pale, neat, clean and wearing green scrubs Eye contact: Good Behavior: Cooperative, restless Speech: Fragmented Mood: Good. Affect: Blunted Thought process: Disorganized Thought Content: Wanting to discharge Cognition: A&O x2 (not to time or situation) Insight: Poor Judgment: Poor Interventions PRN's used: None Therapeutic interventions: Maintained a safe and supportive environment, ensured contract for safety, provided clear and simple instructions, provided direction and encouragement regarding performance of ADLs, monitored behaviors and maintained clear boundaries, provided positive reinforcement for positive behaviors. Restraints/seclusion/emergency medication: N/A Justification of Continued Inpatient Treatment: Patient is conserved. Continues to require a safe and supportive environment while awaiting placement.
[2021-09-08 19:56] VITALS: BP 123/86
[2021-09-08] MEDS: temazepam 15mg capsule PO PRN (20:40)
[2021-09-08] MEDS: quetiapine 100mg tablet PO SCH (20:40)
--- NOTE | 2021-09-09 01:41 | NUR ---
Nursing Progress Note: Legal hold: LPS Client on involuntary status for GD Report received from ELOY Garrett with use of SBAR Why they are here: Pt admitted to [facility] for [facility]al health on LPS conservatorship for Schizophrenia. Pt has escaped from this unit on two occasions resulting in bilateral thumbs, and Lt. foot cold weather injuries. Pt here for medication stabilization and placement. Assessment What has happened this shift: Patient laying in bed awake at the beginning of shift. Pleasant and cooperative with care; compliant with medication. Denies SI, HI, A/VH. No inappropriate behaviors observed this shift. He refused HS snack and remains in bed at this time; observed sleeping and does not appear to be having difficulty. S/I, H/I: Denies A/VH: Denies Sleep: Refer to sleep assessment ADL's: Independent Group attendance: NA Were meds taken: Yes Any med S/E: None observed or reported Mental Status Exam Appearance: Neat, appropriately dressed in green unit attire Eye contact: Good Behavior: Pleasant and cooperative, impulsive Speech: Clear, quiet, fragmented Mood: Good Affect: Blunted Thought process: Disorganized Thought Content: Meeting needs Cognition: A&O x2 (not to time or situation) Insight: Poor Judgment: Poor Interventions PRN's used: Temazepam Therapeutic interventions: Maintained a safe and supportive environment, ensured contract for safety, provided clear and simple instructions, provided direction and encouragement regarding performance of ADLs, monitored behaviors and maintained clear boundaries, provided positive reinforcement for positive behaviors. Restraints/seclusion/emergency medication: NA Justification of Continued Inpatient Treatment: Patient is conserved. Continues to require a safe and supportive environment while awaiting placement.
[2021-09-09] MEDS: sertraline 50mg tablet PO SCH (07:33)
[2021-09-09] MEDS: atorvastatin 20mg tablet PO SCH (07:34)
[2021-09-09] MEDS: OLANZapine 5mg rapidly disint. tablet PO SCH (07:34)
[2021-09-09] MEDS: QUEtiapine 25mg tablet PO SCH ×4 (07:34→20:12)
[2021-09-09 07:53] VITALS: BP 113/83
--- NOTE | 2021-09-09 16:44 | NUR ---
Nursing Progress Note: Legal hold: LPS Client on involuntary status for GD Report received from SREEDHAR Ramos with use of SBAR Why they are here: Pt admitted to [facility] for Behavioral health on LPS conservatorship for Schizophrenia. Pt has escaped from this unit on two occasions resulting in bilateral thumbs, and Lt. foot cold weather injuries. Pt here for medication stabilization and placement. Assessment What has happened this shift: Patient is resting quietly in bed at the start of the shift. Awake prior to breakfast and paces the unit. Cooperative with 1:1 assessment and medications. Eats breakfast in his room then paces the unit. Requests to watch TV and sit in the community room watching TV for some time. Occasionally gets up and walks around the room briefly during the movie. Patient eats lunch in his room then spends time there resting in bed but does not appear to be asleep. Hesitant to take his afternoon medication stating, I want to get off these meds. With encouragement he is cooperative. Patient displays repetitive/ ritualistic behavior such as stepping forward and back several times before walking, and picking something up and putting it down several times. S/I, H/I: Denies A/VH: Denies Sleep: 0.5 hours in the morning ADL's: Independent Group attendance: NA Were meds taken: Yes Any med S/E: None observed or reported Mental Status Exam Appearance: Young male, pale, neat, clean and wearing green scrubs Eye contact: Good Behavior: Cooperative, restless Speech: Fragmented Mood: Good. Affect: Blunted Thought process: Disorganized, possible thought blocking Thought Content: Perseverates on wanting to discharge. Cognition: A&O x2 (not to time or situation) Insight: Poor Judgment: Poor Interventions PRN's used: None Therapeutic interventions: Maintained a safe and supportive environment, ensured contract for safety, provided clear and simple instructions, provided direction and encouragement regarding performance of ADLs, monitored behaviors and maintained clear boundaries, provided positive reinforcement for positive behaviors, and maintained LOS. Restraints/seclusion/emergency medication: N/A Justification of Continued Inpatient Treatment: Patient is conserved. Continues to require a safe and supportive environment while awaiting placement.
[2021-09-09] MEDS: temazepam 15mg capsule PO PRN (20:12)
[2021-09-09] MEDS: quetiapine 100mg tablet PO SCH (20:13)
--- NOTE | 2021-09-10 02:28 | NUR ---
Nursing Progress Note: Legal hold: LPS Client on involuntary status for GD Report received from ELOY Garrett with use of SBAR Why they are here: Pt admitted to [facility] for Behavioral health on LPS conservatorship for Schizophrenia. Pt has escaped from this unit on two occasions resulting in bilateral thumbs, and Lt. foot cold weather injuries. Pt here for medication stabilization and placement. Assessment What has happened this shift: Patient laying in bed awake at the beginning of shift. Pleasant and cooperative with care; compliant with medication. Patient denies SI, HI, A/VH. Appears to be masturbating this shift; remains covered up and does stops when staff is in the room. He continues to self-isolate; provided HS snack and ate in his room this shift. Observed sleeping and does not appear to be having difficulty. S/I, H/I: Denies A/VH: Denies Sleep: Refer to sleep assessment ADL's: Independent Group attendance: NA Were meds taken: Yes Any med S/E: None observed or reported Mental Status Exam Appearance: Neat, appropriately dressed in green unit attire Eye contact: Good Behavior: Pleasant and cooperative, impulsive Speech: Clear, quiet, fragmented Mood: Good Affect: Blunted Thought process: Disorganized Thought Content: Meeting needs Cognition: A&O x2 (not to time or situation) Insight: Poor Judgment: Poor Interventions PRN's used: Temazepam Therapeutic interventions: Maintained a safe and supportive environment, ensured contract for safety, provided clear and simple instructions, provided direction and encouragement regarding performance of ADLs, monitored behaviors and maintained clear boundaries, provided positive reinforcement for positive behaviors. Restraints/seclusion/emergency medication: NA Justification of Continued Inpatient Treatment: Patient is conserved. Continues to require a safe and supportive environment while awaiting placement.
[2021-09-10 07:42] VITALS: BP 107/73
[2021-09-10] MEDS: QUEtiapine 25mg tablet PO SCH ×4 (07:42→20:31)
[2021-09-10] MEDS: OLANZapine 5mg rapidly disint. tablet PO SCH (07:42)
[2021-09-10] MEDS: sertraline 50mg tablet PO SCH (07:42)
[2021-09-10] MEDS: atorvastatin 20mg tablet PO SCH (07:42)
[2021-09-10] MEDS: NICOTINE POLACRILEX 2 MG LOZENGE BC PRN ×2 (12:35→16:54)
--- NOTE | 2021-09-10 16:25 | NUR ---
Legal hold: LPS Client on involuntary status for GD Report received from nurse with use of SBAR: Tere Salas RN Why are they here: [facility] on LPS conservatorship for Schizophrenia. Pt had escaped from this unit 4-5 days earlier. Pt walked back into the emergency room this morning. Pt has wounds to bilateral thumbs that could be cold weather injury and to L foot. Pt has been off of his meds since leaving. Pt immediately requests to go to lower level of care, return to [place] or leave today. Pt here for medication stabilization and placement. Assessment What has happened this shift: Received pt. sleeping in bed at the beginning of the shift, he awoke and exhibited some restlessness and impulsiveness AEB pacing and getting up and down repeatedly out of bed. Pt. requested to shower and was able to preform this task independently, and he is able to make his needs known. 1:1 was completed at bedside, pt's speech continues to be fragmented with paucity, however has improved. Pt. continues to deny all MH s/s, and does not appear to be internally preoccupied. Pt. reports he would like to discharge, however when questioned by this speech writer where he would like to go, pt. states, "I don't know?" Pt. exhibits ritualistic/repetitive movements throughout the day AEB taking small steps forwards and then backwards while ambulating and picking up and setting objects down repeatedly. Pt. paced slowly throughout much of the afternoon, approaching different staff members and perseverating on his desire to obtain different objects (mainly pizza and cigarettes). He required redirection and clear boundaries with some effectiveness. No adverse behaviors, such as spitting out medications were exhibited, and pt. did not attempt to AWOL this shift. S/I, H/I: Denies A/VH: Denies, does not appear to be internally preoccupied Sleep: Sleep hours are 7.5 ADL's: Requires direction and encouragement. Group attendance: N/A Were meds taken: Yes in applesauce Any med S/E: None Mental Status Exam Appearance: Neat and appropriately dressed, pt. showered this shift Eye contact: Good, intense at times Behavior: Cooperative, restless, guarded, ritualistic/repetitive, and impulsive Speech: Fragmented with paucity Mood: Guarded Affect: Blunted Thought process: Poverty of thought with paucity Thought Content:Perseveration on desire to obtain different objects Cognition: A&O x3 Insight: Poor Judgment: Poor Interventions PRN's used: nicotine Lozenge Therapeutic interventions: Maintained a safe and supportive environment, ensured contract for safety, provided clear and simple instructions, provided direction and encouragement regarding performance of ADLs, monitored behaviors and maintained clear boundaries, provided positive reinforcement for positive behaviors, and maintained Q 15min safety checks. Restraints/seclusion/emergency medication: N/A Justification of Continued Inpatient Treatment: Per Dr. Newell, pt. continues to require a safe and supportive environment while awaiting placement.
[2021-09-10 19:14] VITALS: BP 114/80
[2021-09-10] MEDS: temazepam 15mg capsule PO PRN (20:31)
[2021-09-10] MEDS: quetiapine 100mg tablet PO SCH (20:31)
--- NOTE | 2021-09-11 03:01 | NUR ---
Nursing Progress Note: Legal hold: LPS Client on involuntary status for GD Report received from ELOY Garrett with use of SBAR Why they are here: Pt admitted to [facility] for Behavioral health on LPS conservatorship for Schizophrenia. Pt has escaped from this unit on two occasions resulting in bilateral thumbs, and Lt. foot cold weather injuries. Pt here for medication stabilization and placement. Assessment What has happened this shift: Patient laying in bed quietly at the beginning of shift. Pleasant and cooperative with care; compliant with medication. Denies SI, HI, A/VH. States he is "fine" and "bored" upon being asked how he is doing. Patient's speech is broken and taking him a while to ask questions this shift; occasionally states "never mind" when he has difficulty completing his question. Patient came out of his room only to request snacks/drinks this shift. He is observed sleeping and does not appear to be having difficulty. S/I, H/I: Denies A/VH: Denies Sleep: Refer to sleep assessment ADL's: Independent Group attendance: NA Were meds taken: Yes Any med S/E: None observed or reported Mental Status Exam Appearance: Neat, appropriately dressed in green unit attire Eye contact: Good Behavior: Pleasant and cooperative, impulsive Speech: Clear, quiet, fragmented Mood: Fine "Bored" Affect: Blunted Thought process: Disorganized Thought Content: Meeting needs Cognition: A&O x2 (not to time or situation) Insight: Poor Judgment: Poor Interventions PRN's used: Temazepam Therapeutic interventions: Maintained a safe and supportive environment, ensured contract for safety, provided clear and simple instructions, provided direction and encouragement regarding performance of ADLs, monitored behaviors and maintained clear boundaries, provided positive reinforcement for positive behaviors. Restraints/seclusion/emergency medication: NA Justification of Continued Inpatient Treatment: Patient is conserved. Continues to require a safe and supportive environment while awaiting placement.
[2021-09-11] MEDS: OLANZapine 5mg rapidly disint. tablet PO SCH (07:42)
[2021-09-11] MEDS: atorvastatin 20mg tablet PO SCH (07:42)
[2021-09-11] MEDS: sertraline 25mg tablet PO SCH (07:42)
[2021-09-11] MEDS: QUEtiapine 25mg tablet PO SCH ×4 (07:42→21:09)
[2021-09-11 07:45] VITALS: BP 104/72
[2021-09-11] MEDS: NICOTINE POLACRILEX 2 MG LOZENGE BC PRN ×2 (09:15→14:28)
--- NOTE | 2021-09-11 17:50 | NUR ---
Nursing Progress Note Legal hold: LPS Client on involuntary status for GD Report received from nurse with use of SBAR: Tere Salas RN Why are they here: Pt admitted to [facility] for Behavioral health today on LPS conservatorship for Schizophrenia. Pt had escaped from this unit 4-5 days earlier. Pt walked back into the emergency room this morning. Pt has wounds to bilateral thumbs that could be cold weather injury and to L foot. Pt has been off of his meds since leaving. Pt immediately requests to go to lower level of care, return to [place] or leave today. Pt here for medication stabilization and placement. Assessment What has happened this shift: Received pt. sleeping in bed at shift change. Patient awakens shortly afterwards and paces the hallways with repetitious behaviors such as starting to take medicine cup from RN and then not taking it several times. Patient is able to follow directions when asked. Patient has fragmented speech when asking for something. Today he has been interested in getting pizza and Methadone. There were no inappropriate behaviors, such as pushing call lights, or attempting to exit. S/I, H/I: Denies A/VH: Denies, does not appear to be internally preoccupied Sleep: Sleep hours are 7.5 ADL's: Requires direction and encouragement. Group attendance: N/A Were meds taken: Yes Any med S/E: None Mental Status Exam Appearance: Neat and appropriately dressed in unit attire. Eye contact: Good, intense at times Behavior: Cooperative, restless, guarded, ritualistic/repetitive, and impulsive Speech: Fragmented with paucity Mood: Euthymic. Affect: Blunted Thought process: Poverty of thought Thought Content: Perseveration on desire to obtain different food and medications. Cognition: A&O x3 Insight: Poor Judgment: Poor Interventions PRN's used: nicotine Lozenge x2 Therapeutic interventions: Maintained a safe and supportive environment, ensured contract for safety, provided clear and simple instructions, provided direction and encouragement regarding performance of ADLs, monitored behaviors and maintained clear boundaries, provided positive reinforcement for positive behaviors, and maintained Q 15min safety checks. Restraints/seclusion/emergency medication: N/A Justification of Continued Inpatient Treatment: Per Dr. Newell, pt. continues to require a safe and supportive environment while awaiting placement per Conservator.
[2021-09-11 19:49] VITALS: BP 116/83
[2021-09-11] MEDS: quetiapine 100mg tablet PO SCH (21:09)
--- NOTE | 2021-09-12 02:21 | NUR ---
Nursing Progress Note Legal hold: LPS Client on involuntary status for GD Report received from SREEDHAR Garrett with use of SBAR: Why are they here: Pt admitted to [facility] for Behavioral health today on LPS conservatorship for Schizophrenia. Pt had escaped from this unit 4-5 days earlier. Pt walked back into the emergency room this morning. Pt has wounds to bilateral thumbs that could be cold weather injury and to L foot. Pt has been off of his meds since leaving. Pt immediately requests to go to lower level of care, return to [place] or leave today. Pt here for medication stabilization and placement. Assessment What has happened this shift: Pt sleeping in bed at shift change. Pt declined snack. Stayed in room all shift. Took HS meds and opened mouth to show he is not cheeking went back to sleep. S/I, H/I: Denies A/VH: Denies, Sleep: Sleeping at this time ADL's: Requires direction and encouragement. Group attendance: N/A Were meds taken: Yes Any med S/E: None Mental Status Exam Appearance: Neat and appropriately dressed in unit attire. Eye contact: Good, intense at times Behavior: Cooperative, restless, guarded, ritualistic/repetitive, and impulsive Speech: Fragmented with paucity Mood: Euthymic. Affect: Blunted Thought process: Poverty of thought Thought Content: Sleeping all shift Cognition: A&O x3 Insight: Poor Judgment: Poor Interventions PRN's used: nicotine none Therapeutic interventions: Maintained a safe and supportive environment, ensured contract for safety, provided clear and simple instructions, provided direction and encouragement regarding performance of ADLs, monitored behaviors and maintained clear boundaries, provided positive reinforcement for positive behaviors, and maintained Q 15min safety checks. Restraints/seclusion/emergency medication: N/A Justification of Continued Inpatient Treatment: Per Dr. Newell, pt. continues to require a safe and supportive environment while awaiting placement per Conservator.
[2021-09-12] MEDS: atorvastatin 20mg tablet PO SCH (07:35)
[2021-09-12] MEDS: QUEtiapine 25mg tablet PO SCH ×4 (07:35→20:42)
[2021-09-12] MEDS: sertraline 25mg tablet PO SCH (07:35)
[2021-09-12] MEDS: OLANZapine 5mg rapidly disint. tablet PO SCH (07:35)
[2021-09-12 08:00] VITALS: BP 116/84
--- NOTE | 2021-09-12 09:58 | NUR ---
Reassessment: Pt PO intake ~33% of regular meals w/ shakes TIDWM, grilled cheese sandwiches w/ lunch, peanut butter and jelly sandwiches w/ dinner, and fluctuating acceptance of snacks; which meets ~76% of est energy needs and 86% of est protein needs. Pt has trouble remaining seated during meals and will get up and leave and not return to the meal and pt continues to require frequent encouragement per materials buyer. IF PO intake is not consistently greater than 50% of meals, then pt may benefit from nutrition support. Despite patterns in PO intake, patient's weight has remained stable throughout LOS. LBM 09/07; bowel care available PRN. Will continue to follow closely. Recommendations: 1. Continue regular diet as tolerated 2. Grilled cheese sandwich at lunch, Peanut butter and jelly sandwich at dinner 3. Milkshake TIDWM; Encourage PO intake of meals/snacks 4. If PO remains poor, initiate nutrition support if MD agreeable and within POC 5. Recommend new CMP; last CMP 07/24 6. Routine bowel care 7. Weekly scaled weights Addendum: 09/12/21 at [address] Amended: Links added. Addendum: 09/12/21 at [address] I have reviewed assessment by internal controls specialist
[2021-09-12] MEDS: NICOTINE POLACRILEX 2 MG LOZENGE BC PRN (11:41)
--- NOTE | 2021-09-12 15:06 | NUR ---
Nurse note: Penis Evaluated pts penis. Pt had made comments before about it hurting from being "Raw". Took much encouragement and pt with OCD showing and hiding it and showing it. Unable to visualize all sides of it. PT has redness near the tip and small abrasion to left side. It is partially erect. Pt states upon questioning that it remains partially erect most of the time and remains partially erect after masturbation.. Will discuss this with .
--- NOTE | 2021-09-12 15:33 | NUR ---
Nursing Progress Note: Legal hold: LPS Client on involuntary status for GD Report received from nurse with use of SBAR: ELOY Wright Why are they here: Pt admitted to [facility] for [facility] health today on LPS conservatorship for Schizophrenia. Pt had escaped from this unit 4-5 days earlier. Pt walked back into the emergency room this morning. Pt has wounds to bilateral thumbs that could be cold weather injury and to L foot. Pt has been off of his meds since leaving. Pt immediately requests to go to lower level of care, return to [place] or leave today. Pt here for medication stabilization and placement. Assessment What has happened this shift: Received pt. awake ambulating in the hallway at beginning of the shift, carrying a coloring page and pens. He did not greet or make eye contact with this policy writer sales, but stared intently ahead, and continued to present with some restlessness throughout the morning. Pt. continues to be able to make his needs known, however his speech continues to be fragmented with paucity 1:1 was completed later at bedside, pt. continues to deny all MH s/s and does not readily participate in the assessment, continuing to be guarded with possible thought blocking. Pt. again exhibits ritualistic/repetitive movements throughout the day AEB taking small steps forwards and then backwards while ambulating and picking up and setting objects down repeatedly. Pt. continues to perseverate on obtaining different/random objects at times. He also exhibits some negative behaviors AEB throwing his Nicotine Lozenge and lunch tray on the ground; requiring clear boundaries and redirection with effectiveness. Pt. denies any pain and no s/s of pain exhibited (see previous note), will continue to monitor. S/I, H/I: Denies A/VH: Denies, does not appear to be internally preoccupied Sleep: Sleep hours are 8.75 ADL's: Requires direction and encouragement. Group attendance: N/A Were meds taken: Yes in applesauce Any med S/E: None Mental Status Exam Appearance: Somewhat disheveled, however appropriately dressed Eye contact: Fair, intense at times Behavior: Cooperative, restless, guarded, ritualistic/repetitive, and impulsive Speech: Fragmented with paucity Mood: Guarded Affect: Blunted Thought process: Poverty of thought with possible thought blocking Thought Content:Perseveration on desire to obtain different objects Cognition: A&O x3 Insight: Poor Judgment: Poor Interventions PRN's used: nicotine Lozenge Therapeutic interventions: Maintained a safe and supportive environment, ensured contract for safety, provided clear and simple instructions, provided direction and encouragement regarding performance of ADLs, monitored behaviors and maintained clear boundaries, provided positive reinforcement for positive behaviors and redirection for negative behaviors, and maintained Q 15min safety checks. Restraints/seclusion/emergency medication: N/A Justification of Continued Inpatient Treatment: Per Jimenez PA, pt. continues to require a safe and supportive environment, no changes to medications or treatment at this time.
[2021-09-12 20:23] VITALS: BP 123/88
[2021-09-12] MEDS: quetiapine 100mg tablet PO SCH (20:41)
[2021-09-12] MEDS: temazepam 15mg capsule PO PRN (23:41)
--- NOTE | 2021-09-13 00:14 | NUR ---
Nursing Progress Note: Legal hold: LPS Client on involuntary status for GD Report received from nurse with use of SBAR:ELOY Garrett Why are they here: Pt admitted to [place] for Behavioral health today on LPS conservatorship for Schizophrenia. Pt had escaped from this unit 4-5 days earlier. Pt walked back into the emergency room this morning. Pt has wounds to bilateral thumbs that could be cold weather injury and to L foot. Pt has been off of his meds since leaving. Pt immediately requests to go to lower level of care, return to [place] or leave today. Pt here for medication stabilization and placement. Assessment What has happened this shift: Pt up walking in [place]ard at start of shift. Pt. exhibits ritualistic/repetitive movements throughout the day AEB taking small steps forwards and then backwards while ambulating Sitting down standing up sitting back down several times. Pt speaks in sentence fragments with long pauses. He said he would like his freedom.. . long pause... then said Discharge. When asked where would he go he said "I have a house" but when asked he did not know where his house was. Pt up in halls not observed initiating any interactions with staff or other pts. Spent most of shift in room. Took his meds willingly. Given a PRN Restoril for sleep. Lying quietly in bed at this time. S/I, H/I: Denies A/VH: Denies, does not appear to be internally preoccupied Sleep: will monitor ADL's: Requires direction and encouragement. Group attendance: N/A Were meds taken: Yes Any med S/E: None Mental Status Exam Appearance: Somewhat disheveled, however appropriately dressed Eye contact: Fair, intense at times Behavior: Cooperative, restless, guarded, ritualistic/repetitive, and impulsive Speech: Fragmented Mood: Guarded Affect: Blunted Thought process: Poverty of thought with possible thought blocking Thought Content:Perseveration on desire to discharge Cognition: A&O x3 Insight: Poor Judgment: Poor Interventions PRN's used: Restoril Therapeutic interventions: Maintained a safe and supportive environment, ensured contract for safety, provided clear and simple instructions, provided direction and encouragement regarding performance of ADLs, monitored behaviors and maintained clear boundaries, provided positive reinforcement for positive behaviors and redirection for negative behaviors, and maintained Q 15min safety checks. Restraints/seclusion/emergency medication: N/A Justification of Continued Inpatient Treatment: Per JEM Gaona, pt. continues to require a safe and supportive environment, no changes to medications or treatment at this time.
[2021-09-13] MEDS: OLANZapine 5mg rapidly disint. tablet PO SCH (07:24)
[2021-09-13] MEDS: sertraline 25mg tablet PO SCH (07:24)
[2021-09-13] MEDS: atorvastatin 20mg tablet PO SCH (07:24)
[2021-09-13] MEDS: QUEtiapine 25mg tablet PO SCH ×4 (07:24→20:04)
[2021-09-13 08:00] VITALS: BP 115/88
[2021-09-13] MEDS: LORazepam 1 MG tablet PO PRN (10:48)
--- NOTE | 2021-09-13 16:07 | NUR ---
1:1 This below named therapist, met briefly with his patient as he was walking in the hallway, to provide an expressive art activity. The patient was encouraged to complete the exercise, in preparation for a mural making activity tomorrow. Patient was not interested in doing the project and did not take the handouts. Jolene Peguero MA, PUBLIC HEALTH INSPECTOR #[id number] [facility] Art Therapist
[2021-09-13] MEDS: NICOTINE POLACRILEX 2 MG LOZENGE BC PRN (16:26)
--- NOTE | 2021-09-13 16:42 | NUR ---
Nursing Progress Note: Legal hold: LPS Client on involuntary status for GD Report received from nurse with use of SBAR: ELOY Alexis Why are they here: Pt admitted to [place] for Behavioral health today on LPS conservatorship for Schizophrenia. Pt had escaped from this unit 4-5 days earlier. Pt walked back into the emergency room this morning. Pt has wounds to bilateral thumbs that could be cold weather injury and to L foot. Pt has been off of his meds since leaving. Pt immediately requests to go to lower level of care, return to [place] or leave today. Pt here for medication stabilization and placement. Assessment What has happened this shift: Received pt. awake ambulating in the hallway at beginning of the shift, he continues to require frequent redirection to wear his mask. Pt. threw his breakfast tray in the middle of the hallway after eating instead of placing it in the cart. After being redirected by staff to pick his tray up, pt. proceeded to throw it down again. Pt. was provided with towels and required direction from staff in order to clean up his mess. Later, pt. requested a Nicotine Lozenge and proceeded to throw this on the floor as well; this continued to be a reoccurring trend with different items throughout the day. Pt. required education and clear boundaries, however he continued to test the rules on the unit throughout the day. At one point, pt. entered another peer's room. 1:1 completed with pt. and PRN Ativan was provided. Pt. stated somewhat irritably, "I want to go home! Can you let me go? It's not fair." His speech continues to be fragmented with paucity, but continues to improve in sentence length. This policy writer questioned pt. regarding where he would like to go? Pt. reported in a delusional manner that he would like to go back to "My house on [address] This policy writer attempted to provide education to pt. that this home does not exist for him now, however pt. remained adamant in his belief that it does. Pt. was later observed to be pacing in the hallway laughing to himself, he appears internally preoccupied. Pt. again exhibited ritualistic/repetitive movements throughout the day AEB taking small steps forwards and then backwards while ambulating and picking up and setting objects down repeatedly. Pt. continued to perseverate on obtaining different items throughout the day (i.e. fluids), and promptly dropping them on the ground. Pt. pushed multiple call lights and appears board. At intervals he will run quickly and jump into the air, will continue to monitor and provide redirection as needed. S/I, H/I: Denies A/VH: Denies, however observed to be laughing to self as if responding to internal stimuli Sleep: Sleep hours are 4.25 ADL's: Requires direction and encouragement. Group attendance: N/A Were meds taken: Yes in applesauce Any med S/E: None Mental Status Exam Appearance: Somewhat disheveled, however appropriately dressed Eye contact: Fair, intense at times Behavior: Cooperative/RTC, restless, irritable at times, guarded, ritualistic/repetitive, and impulsive Speech: Fragmented with paucity Mood: Guarded Affect: Blunted Thought process: Fragmented with possible thought blocking Thought Content:Perseveration on desire to obtain different objects and discharge Cognition: A&O x3 Insight: Poor Judgment: Poor Interventions PRN's used: nicotine Lozenge and Ativan Therapeutic interventions: Maintained a safe and supportive environment, ensured contract for safety, provided clear and simple instructions, provided direction and encouragement regarding performance of ADLs, monitored behaviors and maintained clear boundaries, provided positive reinforcement for positive behaviors and redirection for negative behaviors, and maintained Q 15min safety checks. Restraints/seclusion/emergency medication: N/A Justification of Continued Inpatient Treatment: Per Dr. Muller, pt. continues to require a safe and supportive environment, his Seroquel will be tapered and Zoloft increased.
--- NOTE | 2021-09-13 17:56 | NUR ---
Pt. received his dinner tray and proceeded to throw it on the ground X2, shattering one of the cups. When confronted by this commercial underwriter, pt. attempted to pick up truck driver his tray and throw it down again, the food on the tray was ruined, however one wrapped sandwich remained. This commercial underwriter was able to get tray out of pt's hands before he threw it again. Pt. stated agitatedly, "Give me my food! I want to eat that!" This commercial underwriter provided education to pt. that he had ruined his food by dropping his tray and the only thing available for him to eat is the sandwich which was not ruined. Pt. consented to eating sandwich,and then afterwards walked down the hallway with wet socks (from water from spilled tray). He was redirected back to his room to change his socks, and while in room pt. stated irritably to staff, "Get the fuck out! Leave me alone!" He proceeded to make punching motions towards staff's faces. Pt. was able to be verbally redirected by staff, and finally stated the reason for his agitation is his belief that his food and drink is being poisoned. Endorsed to Noc shift and will continue to monitor. Addendum: 09/13/21 at 1829 by Ruth Carlos RN Styrofoam tray and cups only were ordered for patient.
[2021-09-13 19:13] VITALS: BP 111/72
[2021-09-13] MEDS: temazepam 15mg capsule PO PRN ×2 (20:04→20:50)
[2021-09-13] MEDS: quetiapine 100mg tablet PO SCH ×2 (20:05→21:00)
--- NOTE | 2021-09-14 00:38 | NUR ---
Nursing Progress Note: Legal hold: LPS Client on involuntary status for GD Report received from nurse with use of SBAR: ELOY Garrett Why are they here: [facility] on LPS conservatorship for Schizophrenia. Pt had escaped from this unit 4-5 days earlier. Pt walked back into the emergency room this morning. Pt has wounds to bilateral thumbs that could be cold weather injury and to L foot. Pt has been off of his meds since leaving. Pt immediately requests to go to lower level of care, return to [place] or leave today. Pt here for medication stabilization and placement. Assessment What has happened this shift: Pt was in the hallway walking and jumping around at change of shift. Attempts were made to redirect but he sporadically runs or jumps in the hallway. Pt continues to ask for cups of water and drops them on the floor saying its poison. Pt drops med cups after taking meds and then states "sorry I'll get it." Pt seems embarrassed and offers to clean up the water and various things he drops on the floor. Pt states he wants to go somewhere and says hes bored. Asked patient where he would go? Pt didnt know. Suggested patient think about places he would like to go, maybe think about the beach? Pt smiled and states "ya the beach is nice". Pt asks for a "mood stabilizer" then states he doesnt want abilify he wants clonopin or zyprexa, not depakote either because it makes him feel like hes getting old and tired and wants to fight. S/I, H/I: Denies A/VH: Denies, Sleep: see sleep hours ADL's: Requires direction and encouragement. Group attendance: N/A Were meds taken: Yes Any med S/E: None Mental Status Exam Appearance: Somewhat disheveled, however appropriately dressed Eye contact: Fair, intense at times Behavior: Cooperative/RTC, restless, irritable at times, guarded, ritualistic/repetitive, and impulsive Speech: Fragmented with paucity Mood: Guarded Affect: Blunted Thought process: Fragmented with possible thought blocking Thought Content:Perseveration on desire to obtain different objects and discharge Cognition: A&O x3 Insight: Poor Judgment: Poor Interventions PRN's used: nicotine Lozenge Therapeutic interventions: Maintained a safe and supportive environment, ensured contract for safety, provided clear and simple instructions, provided direction and encouragement regarding performance of ADLs, monitored behaviors and maintained clear boundaries, provided positive reinforcement for positive behaviors and redirection for negative behaviors, and maintained Q 15min safety checks. Restraints/seclusion/emergency medication: N/A Justification of Continued Inpatient Treatment: Per Dr. Muller, pt. continues to require a safe and supportive environment, his Seroquel will be tapered and Zoloft increased.
[2021-09-14] MEDS: sertraline 25mg tablet PO SCH (07:23)
[2021-09-14] MEDS: QUEtiapine 25mg tablet PO SCH ×4 (07:23→20:35)
[2021-09-14] MEDS: atorvastatin 20mg tablet PO SCH (07:23)
[2021-09-14] MEDS: OLANZapine 5mg rapidly disint. tablet PO SCH (07:23)
[2021-09-14 07:38] VITALS: BP 106/66
[2021-09-14] MEDS: NICOTINE POLACRILEX 2 MG LOZENGE BC PRN (09:50)
--- NOTE | 2021-09-14 15:46 | NUR ---
Nursing Progress Note: Legal hold: LPS Client on involuntary status for GD Report received from nurse with use of SBAR: ELOY Alexis Why are they here: Pt admitted to [facility] for Behavioral health today on LPS conservatorship for Schizophrenia. Pt had escaped from this unit 4-5 days earlier. Pt walked back into the emergency room this morning. Pt has wounds to bilateral thumbs that could be cold weather injury and to L foot. Pt has been off of his meds since leaving. Pt immediately requests to go to lower level of care, return to [place] or leave today. Pt here for medication stabilization and placement. Assessment What has happened this shift: Received pt. awake in his room at beginning of the shift, he had a large bowel movement, and pushed the emergency light for staff to come flush it. It was noted by this underwriter that pt's room was littered with garbage and half eaten food items and he was encouraged to pick them up and manage his ADLs. After receiving his breakfast tray, pt. again immediately threw the whole tray on the floor and was unable to eat any of his meal. When directed by staff to clean up the mess he had made, pt. protested, "I can't, I have mental health problems." Pt. also continues to request cups of water and masks, which he then drops on the floor. He needs frequent redirection and encouragement to wear his mask while out of his room. Pt. again attempted to enter another pt's room and required minimal physical redirection from staff. He became slightly irritated and made punching motions towards a staff member, but was able to be verbally redirected. Pt. continues to require frequent redirection and clear boundaries in order to manage his behaviors, and appears to continue to be testing the rules on the unit. Pt's behaviors were endorsed to JEM Gaona, who educated pt. that he will have no hesitation putting him back on LOS if needed, pt. reported understanding. 1:1 was completed by this underwriter pt. denies any S/I, H/I, or any thoughts that others may want to hurt him. He does report V/H of "Forms," and negative thoughts that make him "Flip out." Pt. continues to exhibit ritualistic/repetitive movements. After eating lunch pt. dropped his lunch tray in the middle of the hallway. He appears restless and frequently asks different staff members for multiple items (pizza, soda, different food items), however was provided education that he must maintain his behaviors before he can gain privileges. Pt. reports some understanding and his behavior did improve throughout the afternoon, will continue to monitor. S/I, H/I: Denies A/VH: Pt. reports V/ANDRADE of "Forms." Sleep: Sleep hours are 6.75 ADL's: Requires direction and encouragement. Group attendance: N/A Were meds taken: Yes Any med S/E: None Mental Status Exam Appearance: Somewhat disheveled, however appropriately dressed Eye contact: Fair, intense at times Behavior: Cooperative/RTC, restless, irritable at times, guarded, ritualistic/repetitive, and impulsive Speech: Fragmented with paucity Mood: Guarded Affect: Blunted Thought process: Fragmented with possible thought blocking Thought Content:Perseveration on desire to obtain different objects and discharge Cognition: A&O x3 Insight: Poor Judgment: Poor Interventions PRN's used: nicotine Lozenge Therapeutic interventions: Maintained a safe and supportive environment, ensured contract for safety, provided clear and simple instructions, provided direction and encouragement regarding performance of ADLs, monitored behaviors and maintained clear boundaries, provided positive reinforcement for positive behaviors and redirection for negative behaviors, and maintained Q 15min safety checks. Restraints/seclusion/emergency medication: N/A Justification of Continued Inpatient Treatment: Per Dr. Muller, pt. continues to require a safe and supportive environment, his Seroquel will be tapered and Zoloft increased.
[2021-09-14 20:00] VITALS: BP 110/77
[2021-09-14] MEDS: quetiapine 100mg tablet PO SCH (20:35)
--- NOTE | 2021-09-15 01:24 | NUR ---
Nursing Progress Note: Legal hold: LPS Client on involuntary status for GD Report received from nurse with use of SBAR: Major LYONS Why are they here: Pt admitted to [facility] for Behavior[facility] health today on LPS conservatorship for Schizophrenia. Pt had escaped from this unit 4-5 days earlier. Pt walked back into the emergency room this morning. Pt has wounds to bilateral thumbs that could be cold weather injury and to L foot. Pt has been off of his meds since leaving. Pt immediately requests to go to lower level of care, return to [place] or leave today. Pt here for medication stabilization and placement. Assessment What has happened this shift: Pt walks the unit, told he must wear a mask, puts it on then takes it back off. Pt showing ocd tendencies, walking forward then backward, reaching for things a few times before picking them up. Pt makes direct eye contact and gazes. Pt lays in bed flat on his back, eyes wide open staring at the ceiling. Pt takes HS medication after saying Im not taking that. RN tells him to please take it, he says, okay, it will be okay. RN reassures pt and he takes meds without issue. S/I, H/I: Denies A/VH: Denies, Sleep: see sleep hours ADL's: Requires direction and encouragement. Group attendance: N/A Were meds taken: Yes Any med S/E: None Mental Status Exam Appearance: Somewhat disheveled, however appropriately dressed Eye contact: Fair, intense at times Behavior: Cooperative/RTC, restless, irritable at times, guarded, ritualistic/repetitive, and impulsive Speech: Fragmented with paucity Mood: Guarded Affect: Blunted Thought process: Fragmented with possible thought blocking Thought Content:Perseveration on desire to obtain different objects and discharge Cognition: A&O x3 Insight: Poor Judgment: Poor Interventions PRN's used: na Therapeutic interventions: Maintained a safe and supportive environment, ensured contract for safety, provided clear and simple instructions, provided direction and encouragement regarding performance of ADLs, monitored behaviors and maintained clear boundaries, provided positive reinforcement for positive behaviors and redirection for negative behaviors, and maintained Q 15min safety checks. Restraints/seclusion/emergency medication: N/A Justification of Continued Inpatient Treatment: Per Dr. Muller, pt. continues to require a safe and supportive environment
[2021-09-15] MEDS: sertraline 25mg tablet PO SCH (07:40)
[2021-09-15] MEDS: QUEtiapine 25mg tablet PO SCH ×4 (07:40→20:48)
[2021-09-15] MEDS: LORazepam 1 MG tablet PO PRN (07:42)
[2021-09-15] MEDS: OLANZapine 5mg rapidly disint. tablet PO SCH (07:42)
[2021-09-15] MEDS: atorvastatin 20mg tablet PO SCH (07:42)
[2021-09-15 08:00] VITALS: BP 126/77
--- NOTE | 2021-09-15 08:46 | NUR ---
Reassessment: Pt PO intake ~38% of regular meals w/ shakes TIDWM, grilled cheese sandwiches w/ lunch, peanut butter and jelly sandwiches w/ dinner, and fluctuating acceptance of snacks; which meets ~81% of est energy needs and ~91% of est protein needs. Noted pt has been throwing food trays on the floor and drops food, liquids, and meds on floor per card lacer jacquard. Despite patterns in PO intake, patient's weight has remained stable throughout LOS. LBM 09/14; bowel care available PRN. Will continue to follow closely. Recommendations: 1. Continue regular diet as tolerated 2. Grilled cheese sandwich at lunch, Peanut butter and jelly sandwich at dinner 3. Milkshake TIDWM; Encourage PO intake of meals/snacks 4. If PO remains poor, initiate nutrition support if MD agreeable and within POC 5. Recommend new CMP; last CMP 07/24 6. Routine bowel care 7. Weekly scaled weights Addendum: 09/15/21 at [address] Amended: Links added. Addendum: 09/15/21 at [address] I have reviewed assessment by nurse intern
--- NOTE | 2021-09-15 09:16 | NUR ---
PLACEMENT UPDATE TAD is seeking [facility] level of care. His packet is in the queue at [facility] (Covid lockdown), [facility], [facility] (Covid Lockdown), and [facility]. He has been declined at [facility] (AWOL risk/combative/assaultive bx), [facility] (AWOL risk/assaultive behaviors) and [facility] (does not do well at this facility). JAYCEE Aiken
--- NOTE | 2021-09-15 17:37 | NUR ---
Nursing Progress Note: [place] Legal hold: [facility] Client on involuntary status for GD Report received from nurse with use of SBAR: ELOY Alexis Why are they here: Pt admitted to [place] [facility] today on LPS conservatorship for Schizophrenia. Pt had escaped from this unit 4-5 days earlier. Pt walked back into the emergency room this morning. Pt has wounds to bilateral thumbs that could be cold weather injury and to L foot. Pt has been off of his meds since leaving. Pt immediately requests to go to lower level of care, return to [place] or leave today. Pt here for medication stabilization and placement. Assessment What has happened this shift: Patient observed walking around the unit at change of shift. 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 JEM Gaona, notified of dry and cracked appearing sore on the corner of patients mouth. Patient continues to present as labile, impulsive, and child-like. He was provided with a breakfast tray which he immediately tossed onto the ground. Patient encouraged to clean up the mess off of the ground. He was observed skipping down the hallway and air-punching in the direction of staff requiring frequent redirection. Patient approached this quality analyst/technical writer endorsing that he feels hostile. Patient was given PRN Ativan at 0742. He denies SI/HI, AH or VH. Does not appear to be responding to IS. Patient approached this quality analyst/technical writer later in the morning stating, Do you want a butt job? He was redirected by staff. He continues to present as ritualistic and repetitive throughout the shift. He is noted continuously asking staff for face masks and then proceeding to drop them onto the ground. Patient also noted asking for water throughout the day which he throws into the garbage can after taking one sip. Patient was noted saying fk you toward the charge nurse later in the day and making punching motions toward other staff members. He is easily redirected. Patient noted dropping his lunch tray on the ground after eating his food. He was directed to clean up the mess. He approached this quality analyst/technical writer endorsing that he wants to get out of here. Patient asked for a Nicotine lozenge later in the day which he was provided and proceeded to intentionally drop onto the ground. Pt. continues to require frequent redirection and clear boundaries in order to manage his behaviors. He was active on the unit the entire shift. S/I, H/I: Denies A/VH: Denies. Does not appear to be responding to IS. Sleep: Slept 7.25 hours last night per NOC shift, no naps noted today. ADL's: Requires direction and encouragement. Group attendance: No Were meds taken: Yes Any med S/E: None Mental Status Exam Appearance: Somewhat disheveled, however appropriately dressed, wearing green unit scrubs Eye contact: Fair, intense at times Behavior: Restless, irritable at times, guarded, ritualistic/repetitive, and impulsive Speech: Fragmented with paucity, mumbles Mood: Guarded Affect: Blunted Thought process: Fragmented with possible thought blocking Thought Content: Perseveration on desire to obtain different objects and discharge Cognition: A&O x3 Insight: Poor Judgment: Poor Interventions PRN's used: Ativan 1mg PO Therapeutic interventions: Maintained a safe and supportive environment, ensured contract for safety, provided clear and simple instructions, provided direction and encouragement regarding performance of ADLs, monitored behaviors and maintained clear boundaries, provided positive reinforcement for positive behaviors and redirection for negative behaviors, and maintained Q 15min safety checks. Restraints/seclusion/emergency medication: N/A Justification of Continued Inpatient Treatment: Patient continues to require a safe and supportive environment with medication adjustment and monitoring.
[2021-09-15 20:01] VITALS: BP 119/76
[2021-09-15] MEDS: quetiapine 100mg tablet PO SCH (20:48)
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
[2021-09-16] MEDS: QUEtiapine 25mg tablet PO SCH ×4 (07:29→20:30)
[2021-09-16] MEDS: atorvastatin 20mg tablet PO SCH (07:29)
[2021-09-16] MEDS: OLANZapine 5mg rapidly disint. tablet PO SCH (07:29)
[2021-09-16] MEDS: sertraline 25mg tablet PO SCH (07:30)
[2021-09-16 08:28] VITALS: BP 126/88
--- NOTE | 2021-09-16 16:34 | NUR ---
Nursing Progress Note: Legal hold: LPS Client on involuntary status for GD Report received from SREEDHAR Ramos with use of SBAR Why are they here: Pt admitted to [place] for [facility] health today on LPS conservatorship for Schizophrenia. Pt had escaped from this unit 4-5 days earlier. Pt walked back into the emergency room this morning. Pt has wounds to bilateral thumbs that could be cold weather injury and to L foot. Pt has been off of his meds since leaving. Pt immediately requests to go to lower level of care, return to [place] or leave today. Pt here for medication stabilization and placement. Assessment What has happened this shift: Patient awake in hallway at the start of the shift. Requests water, a towel, dry socks and a new cup as his cup is broken on the floor with water spilled. He cleans the water up himself without prompting. He then drops his new cup of water on the floor and requests another. Small cup with a small amount of water is given and the patient cleans the water up again. OCD type rituals noted such as opening and closing the door several times, stop/ go pattern in ambulation, picks objects up and sets them down repeatedly. After lunch he drops his tray on the floor but then cleans it up. In the afternoon the patient paces the halls and spends time in his room. S/I, H/I: Denies A/VH: Denies. Sleep: None noted this shift. ADL's: Independent Group attendance: NA Were meds taken: Yes Any med S/E: None observed or reported Mental Status Exam Appearance: Younger appearing man, thin, pale, clean, neat dressed in green unit scrubs. Eye contact: Good Behavior: Cooperative, restless, ritualistic/repetitive, and impulsive Speech: Fragmented, disorganized Mood: Good. Affect: Blunted Thought process: Fragmented with possible thought blocking Thought Content: Meeting needs, perseverates on discharge. Cognition: A&O x3 to self, time and place Insight: Poor Judgment: Poor Interventions PRN's used: None Therapeutic interventions: Maintained a safe and supportive environment, ensured contract for safety, provided clear and simple instructions, provided direction and encouragement regarding performance of ADLs, monitored behaviors and maintained clear boundaries, provided positive reinforcement for positive behaviors and redirection for negative behaviors, and maintained Q 15min safety checks. Restraints/seclusion/emergency medication: N/A Justification of Continued Inpatient Treatment: Patient continues to require a safe and supportive environment with medication adjustment and monitoring.
[2021-09-16 18:45] VITALS: BP 132/91
[2021-09-16 20:00] VITALS: BP 132/91
[2021-09-16] MEDS: quetiapine 100mg tablet PO SCH (20:31)
--- NOTE | 2021-09-17 00:18 | NUR ---
Nursing Progress Note: Legal hold: LPS Client on involuntary status for GD Report received from nurse with use of SBAR: Brian LYONS Why are they here: Pt admitted to [place] for [facility] health today on LPS conservatorship for Schizophrenia. Pt had escaped from this unit 4-5 days earlier. Pt walked back into the emergency room this morning. Pt has wounds to bilateral thumbs that could be cold weather injury and to L foot. Pt has been off of his meds since leaving. Pt immediately requests to go to lower level of care, return to [place] or leave today. Pt here for medication stabilization and placement. Assessment What has happened this shift: Pt showing ocd tendencies, walking forward then backward, reaching for things a few times before picking them up. Pt makes direct eye contact and gazes. Pt lays in bed flat on his back with the covers up over his head. Pt takes HS meds without issue. S/I, H/I: Denies A/VH: Denies, Sleep: see sleep hours ADL's: Requires direction and encouragement. Group attendance: N/A Were meds taken: Yes Any med S/E: None Mental Status Exam Appearance: Somewhat disheveled, however appropriately dressed Eye contact: Fair, intense at times Behavior: Cooperative/RTC, restless, irritable at times, guarded, ritualistic/repetitive, and impulsive Speech: Fragmented with paucity Mood: Guarded Affect: Blunted Thought process: Fragmented with possible thought blocking Thought Content:Perseveration on desire to obtain different objects and discharge Cognition: A&O x3 Insight: Poor Judgment: Poor Interventions PRN's used: na Therapeutic interventions: Maintained a safe and supportive environment, ensured contract for safety, provided clear and simple instructions, provided direction and encouragement regarding performance of ADLs, monitored behaviors and maintained clear boundaries, provided positive reinforcement for positive behaviors and redirection for negative behaviors, and maintained Q 15min safety checks. Restraints/seclusion/emergency medication: N/A Justification of Continued Inpatient Treatment: Per Dr. Muller, pt. continues to require a safe and supportive environment
[2021-09-17 08:07] VITALS: BP 118/83
[2021-09-17] MEDS: QUEtiapine 25mg tablet PO SCH ×4 (08:49→20:03)
[2021-09-17] MEDS: atorvastatin 20mg tablet PO SCH (08:49)
[2021-09-17] MEDS: sertraline 25mg tablet PO SCH (08:49)
[2021-09-17] MEDS: OLANZapine 5mg rapidly disint. tablet PO SCH (08:49)
[2021-09-17] MEDS: NICOTINE POLACRILEX 2 MG LOZENGE BC PRN (09:04)
--- NOTE | 2021-09-17 16:52 | NUR ---
Nursing Progress Note: Legal hold: LPS Client on involuntary status for GD Report received from ELOY Sanchez with use of SBAR Why are they here: Pt admitted to [place] for [facility] today on LPS conservatorship for Schizophrenia. Pt had escaped from this unit 4-5 days earlier. Pt walked back into the emergency room this morning. Pt has wounds to bilateral thumbs that could be cold weather injury and to L foot. Pt has been off of his meds since leaving. Pt immediately requests to go to lower level of care, return to [place] or leave today. Pt here for medication stabilization and placement. Assessment What has happened this shift: Pt up pacing in the halls. Pt unable to participate in 1:1 assessment. he presents as confused, disorganized with poverty of speech and thought. Pt only dropped one cup of water today he was reluctant to clean it up himself and did not put much effort into cleaning it when given a towel. He continues with his OCD type rituals such as opening and closing the doors, stop/ go pattern in ambulation, picks objects up and sets them down repeatedly. In the afternoon he takes a nap. S/I, H/I: Denies A/VH: Denies. Sleep: Napped once in the afternoon ADL's: Independent Group attendance: NA Were Meds taken: Yes, in jello, applesauce and yogurt Any med S/E: None observed or reported Mental Status Exam Appearance: Younger appearing man, thin, pale with dark red circles around his eyes, dressed in green unit scrubs. Eye contact: Good Behavior: Cooperative, restless, ritualistic/repetitive, and impulsive Speech: Fragmented, disorganized Mood: yeah, fine Affect: Blunted Thought process: Fragmented with possible thought blocking Thought Content: Meeting needs Cognition: A&O x3 to self, time and place Insight: Poor Judgment: Poor Interventions PRN's used: None Therapeutic interventions: Attempt made to have patient participate in morning assessment, provided clear and simple instructions, provided direction and encouragement regarding performance of ADLs, monitored behaviors and maintained clear boundaries, provided positive reinforcement for positive behaviors and redirection for negative behaviors, and maintained Q 15min safety checks. Restraints/seclusion/emergency medication: N/A Justification of Continued Inpatient Treatment: Patient continues to require a safe and supportive environment with medication adjustment and monitoring.
[2021-09-17 19:17] VITALS: BP 120/91
[2021-09-17] MEDS: temazepam 15mg capsule PO PRN (20:03)
[2021-09-17] MEDS: quetiapine 100mg tablet PO SCH (20:03)
--- NOTE | 2021-09-17 22:28 | NUR ---
Nursing Progress Note: Legal hold: LPS pending placement in an IMD Report received from Madeline Torres charger Why are they here: Pt admitted to [place] for [facility] today on LPS conservatorship for Schizophrenia. Pt had escaped from this unit 4-5 days earlier. Pt walked back into the emergency room this morning. Pt has wounds to bilateral thumbs that could be cold weather injury and to L foot. Pt has been off of his meds since leaving. Pt immediately requests to go to lower level of care, return to [place] or leave today. Pt here for medication stabilization and placement. Assessment: The patient spent the entire evening in his room and when approached for the evening assessment he was just mechanically moving about in his room. He was very uncooperative with the evening assessment and refused any one to one conversation. He was very irritable and repeatedly stated "get out" He denied voices and stated "I'm alright" He was very resistive to medications even with gentle coaxing. He made a closed fist and made gestures to punch the air towards this staff. He did take his medications however. He refused a snack. He moved behind his door and stated, "leave now" His affect was flat. He appeared very disheveled.
--- NOTE | 2021-09-18 07:19 | NUR ---
Reassessment: Pt continues w/ variable meal intake on Regular diet, avg 43% x 10 meals w/ shakes TIDWM, grilled cheese sandwiches w/ lunch, peanut butter and jelly sandwiches w/ dinner, and fluctuating acceptance of snacks; Likely meeting minimum est nutrient needs at this time. Noted pt has been throwing food trays on the floor and drops food, liquids, and meds on floor per nut culler. LBM 09/15; bowel care available PRN. Will continue to follow closely. Recommendations: 1. Continue regular diet as tolerated 2. Grilled cheese sandwich WL, Peanut butter and jelly sandwich WS 3. Milkshake TIDWM; Encourage PO intake of meals/snacks 4. If PO remains poor, initiate nutrition support if MD agreeable and within POC 5. Recommend new CMP; last CMP 07/24 6. Routine bowel care 7. Weekly scaled weights Addendum: 09/18/21 at [address] Amended: Links added.
[2021-09-18 08:00] VITALS: BP 116/85
[2021-09-18] MEDS: OLANZapine 5mg rapidly disint. tablet PO SCH (08:36)
[2021-09-18] MEDS: sertraline 25mg tablet PO SCH (08:36)
[2021-09-18] MEDS: atorvastatin 20mg tablet PO SCH (08:37)
[2021-09-18] MEDS: LORazepam 1 MG tablet PO PRN (08:37)
[2021-09-18] MEDS: QUEtiapine 25mg tablet PO SCH ×4 (08:38→20:29)
[2021-09-18] MEDS: NICOTINE POLACRILEX 2 MG LOZENGE BC PRN (14:39)
--- NOTE | 2021-09-18 15:53 | NUR ---
Nursing Progress Note: Legal hold: LPS Client on involuntary status for GD Report received from nurse with use of SBAR: Tere Salas RN Why are they here: Pt admitted to [place] for [facility] health today on LPS conservatorship for Schizophrenia. Pt had escaped from this unit 4-5 days earlier. Pt walked back into the emergency room this morning. Pt has wounds to bilateral thumbs that could be cold weather injury and to L foot. Pt has been off of his meds since leaving. Pt immediately requests to go to lower level of care, return to [place] or leave today. Pt here for medication stabilization and placement. Assessment What has happened this shift: Received pt. awake in his room pressing the emergency light for no apparent reason and afterwards opening and closing his door repetitively requiring redirection from staff. PRN Ativan administered without much effectiveness. Upon seeing staff pt. immediately began requesting to take a shower, stating in an impulsive manner, "I have to take one now." Set-up help was provided and pt. got into the shower, however he came out shortly afterwards and it appeared that he had not washed, pt. then requested to get back in. He continues to have body odor and may not have washed very thoroughly. 1:1 was completed at bedside, pt. presents with thought blocking and is guarded during the assessment denying MH s/s with inconsistency stating, "Yes, no, yes, no." However, he does admit to ongoing V/ANDRADE of "Forms." Pt. continues to perseverate on discharge and obtaining different food items. During morning snack he requests a drink which he then purposefully throws on the floor AEB smirking to himself afterwards. Pt. continues to require frequent redirection and clear boundaries regarding his behaviors. He states with a smile, "I'm mischievous." Pt. remained up throughout the day and was observed to be exhibiting ritualistic/repetitive movements and at times becomes irritable and will making boxing gestures or throw items to the ground requiring redirection. He continues to test the rules on the unit, for example pushing on the back hallway door, and was provided eduction by JEM Cuevas that he will be placed back on line of sight observation status if needed. Pt. reported understanding, however continues to require frequent redirection regarding behaviors, will continue to monitor. S/I, H/I: Denies A/VH: Pt. reports V/ANDRADE of "Forms." Sleep: Sleep hours are 8 ADL's: Requires direction and encouragement. Clear boundaries Group attendance: N/A Were meds taken: Yes Any med S/E: None Mental Status Exam Appearance: Neat and appropriately dressed, pt. showered this shift, however continues to have body odor and may not have washed very thoroughly Eye contact: Fair, intense at times Behavior: Cooperative/RTC, restless, irritable at times, guarded, ritualistic/repetitive, and impulsive Speech: Fragmented with paucity Mood: Guarded Affect: Blunted Thought process: Fragmented with possible thought blocking Thought Content:Perseveration on desire to obtain different objects and discharge Cognition: A&O x3 Insight: Poor Judgment: Poor Interventions PRN's used: nicotine Lozenge and Ativan Therapeutic interventions: Maintained a safe and supportive environment, ensured contract for safety, provided clear and simple instructions, provided direction and encouragement regarding performance of ADLs, monitored behaviors and maintained clear boundaries, provided positive reinforcement for positive behaviors and redirection for negative behaviors, and maintained Q 15min safety checks. Restraints/seclusion/emergency medication: N/A Justification of Continued Inpatient Treatment: Pt. continues to require a safe and supportive environment while awaiting placement.
--- NOTE | 2021-09-18 17:20 | NUR ---
Pt. attempted to Elope by pushing on the front double doors, he was stopped by staff and security who escorted pt. to his room. Pt. was irritable and again made a few punching motions towards staff, but was able to be redirected. Pt. was given time alone in his room to re-set his behaviors and was provided education. He was able to agree to refrain from exit seeking, and did not exhibit any further exit seeking behaviors during the shift.
[2021-09-18 19:00] VITALS: BP 119/86
[2021-09-18] MEDS: quetiapine 100mg tablet PO SCH (20:29)
[2021-09-18] MEDS: temazepam 15mg capsule PO PRN (20:29)
--- NOTE | 2021-09-19 02:55 | NUR ---
RN PROGRESS NOTE: LEGAL HOLD: LPS for GD REASON FOR ADMIT: [facility] LPS conservatorship for Schizophrenia. Pt had escaped from this unit 4-5 days earlier. Pt walked back into the emergency room this morning. Pt has wounds to bilateral thumbs that could be cold weather injury and to L foot. Pt has been off of his meds since leaving. Pt immediately requests to go to lower level of care, return to [place] or leave today. Pt here for medication stabilization and placement. THIS SHIFT: Client is unhappy and frustrated. He demonstrates this by attempting to elope. He tried to get this RN's badge. He repeatedly asked for water. He was given both water and juice, which he dumped on the floor. This RN refused his last water request. Client responded by stating "Bitch!" twice. Client held his fist up and made punching motions toward this RN. Client appeared to cheek his meds and would not cooperate by opening his mouth. He felt the side of his cheek with is hand shortly after taking meds. Clients affect is flat, his mood is irritable. Client is depressed and angry. DISCHARGE: TBD
[2021-09-19 07:00] VITALS: BP 113/57
[2021-09-19] MEDS: OLANZapine 5mg rapidly disint. tablet PO SCH (08:00)
[2021-09-19] MEDS: sertraline 25mg tablet PO SCH (08:00)
[2021-09-19] MEDS: QUEtiapine 25mg tablet PO SCH ×4 (08:00→21:00)
[2021-09-19] MEDS: atorvastatin 20mg tablet PO SCH (08:00)
[2021-09-19] MEDS ORDERED: LORazepam 2 mg/ml vial IM ONE (08:30)
[2021-09-19] MEDS ORDERED: haloperidol lactate 5mg/ml inj IM ONE (08:30)
[2021-09-19 09:23] VITALS: BP 113/57
[2021-09-19] MEDS: NICOTINE POLACRILEX 2 MG LOZENGE BC PRN (10:33)
[2021-09-19] MEDS ORDERED: PETROLATUM,WHITE JELLY..G. 28.4 gm tube TP PRN (11:30)
--- NOTE | 2021-09-19 11:45 | NUR ---
SECLUSION NOTE: Patient was repetitively pushing on south facing door. Attempted to redirect patient, but patient would not stop. Patient was placed in seclusion at 10:45 and released at 11:30.
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
[2021-09-19] MEDS ORDERED: OLANZapine 5mg rapidly disint. tablet PO ONE (13:35)
[2021-09-19] MEDS ORDERED: OLANZapine **IM** 10 mg inj. IM ONE (13:35)
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
[2021-09-19] MEDS: LORazepam 1 MG tablet PO PRN (14:45)
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
[2021-09-19 20:19] VITALS: BP 118/76
[2021-09-19] MEDS: quetiapine 100mg tablet PO SCH (21:00)
--- NOTE | 2021-09-20 03:14 | NUR ---
Nursing Progress Note: Legal hold: LPS Client on involuntary status for GD Report received from Brian RN with use of SBAR: Why are they here: Pt admitted to [facility] for Behavioral health today on LPS conservatorship for Schizophrenia. Pt had escaped from this unit 4-5 days earlier. Pt walked back into the emergency room this morning. Pt has wounds to bilateral thumbs that could be cold weather injury and to L foot. Pt has been off of his meds since leaving. Pt immediately requests to go to lower level of care, return to [place] or leave today. Pt here for medication stabilization and placement. Assessment What has happened this shift: Patient had been in seclusion today, and was now LOS. He stayed in his room most of the night. Patient was napping and hard to rouse for his HS meds. They were in apple sauce, and he ate it all. Does not like to prove that he swallows them. Patient comes of his room for water or snack. Patient observed sleeping without distress. S/I, H/I: Denies A/VH: Denies, Sleep: See sleep assessment ADL's: Requires direction and encouragement. Group attendance: N/A Were meds taken: Yes Any med S/E: None Mental Status Exam Appearance: Somewhat disheveled, however appropriately dressed Eye contact: Fair, intense at times Behavior: Cooperative/RTC, restless, irritable at times, guarded, ritualistic/repetitive, and impulsive Speech: Fragmented with paucity Mood: Guarded Affect: Blunted Thought process: Fragmented with possible thought blocking Thought Content: Perseveration on desire to obtain different objects and discharge Cognition: A&O x3 Insight: Poor Judgment: Poor Interventions PRN's used: na Therapeutic interventions: Maintained a safe and supportive environment, ensured contract for safety, provided clear and simple instructions, provided direction and encouragement regarding performance of ADLs, monitored behaviors and maintained clear boundaries, provided positive reinforcement for positive behaviors and redirection for negative behaviors, and maintained Q 15min safety checks. Restraints/seclusion/emergency medication: N/A Justification of Continued Inpatient Treatment: Per Dr. Muller, pt. continues to require a safe and supportive environment
[2021-09-20 08:00] VITALS: BP 111/70
[2021-09-20] MEDS: QUEtiapine 25mg tablet PO SCH ×4 (08:00→20:22)
[2021-09-20] MEDS: OLANZapine 5mg rapidly disint. tablet PO SCH (08:00)
[2021-09-20] MEDS: sertraline 25mg tablet PO SCH (08:00)
[2021-09-20] MEDS: atorvastatin 20mg tablet PO SCH (08:00)
--- NOTE | 2021-09-20 15:39 | NUR ---
Nursing Progress Note Legal hold: LPS Conserved Client on involuntary status for GD Report received from RN with use of SBAR Why are they here: Pt admitted to [facility] for Behavioral health today on LPS conservatorship for Schizophrenia. Pt had escaped from this unit 4-5 days earlier. Pt walked back into the emergency room this morning. Pt has wounds to bilateral thumbs that could be cold weather injury and to L foot. Pt has been off of his meds since leaving. Pt immediately requests to go to lower level of care, return to [place] or leave today. Pt here for medication stabilization and placement. Assessment What has happened this shift: Received Pt in bed sleeping w/o distress at the beginning of the shift. Pt woke and cooperative with vitals. Pt does not answer Qs directly. Pt ate small amounts of his meals despite much encouragement. Pt spit out AM meds, refusing to take them. Pt dropped many items given to him today, meds, water, food. Jozef continues to walk in half steps and then back up in jerky fashion. Pts speech is disjointed and delusional at times; memory doesnt work in here, referring to the community room. Pt remained on 1:1 observation all shift secondary to attempts at eloping from the unit on previous shifts. S/I, H/I: Denies A/VH: Denies Sleep: None this shift ADL's: Independent Group attendance: No Were Meds taken: Pt spit out AM meds Any med S/E: None observed or reported Mental Status Exam Appearance: Casual in green scrubs; shaved today Eye contact: Good Behavior: Cooperative, restless, and impulsive Speech: Fragmented, disorganized Mood: not good Affect: Blunted Thought process: Fragmented with possible thought blocking Thought Content: Circumstantial Cognition: A&O x3 to self, time and place Insight: Poor Judgment: Poor Interventions PRN's used: None Therapeutic interventions: Attempt made to have patient participate in morning assessment, provided clear and simple instructions, provided direction and encouragement regarding performance of ADLs, monitored behaviors and maintained clear boundaries, provided positive reinforcement for positive behaviors and redirection for negative behaviors, and maintained Q 15min safety checks. Restraints/seclusion/emergency medication: N/A Justification of Continued Inpatient Treatment: Patient continues to require a safe and supportive environment with medication adjustment and monitoring.
--- NOTE | 2021-09-20 17:46 | NUR ---
Group Art Tx. Continued: Patient entered the group room and with a simple gesture, indicated that he was interested in participating and wanted a piece of paper. Patient was not able to follow the directives, however, did draw into his [place] using a yellow oil pastel, an image that looked somewhat like a mountain outline. Patient did not comment and then ripped his paper in half, noting he was "finished". Patient wandered in and out to the group room sitting down for 10-15 mins. at a time over a period of 75 minutes. Patient remained appropriate, in that he was not disruptive and seemed to like being in the milieu. *Please refer to [employer] for a complete overview of todays session. Jolene Peguero MA, REPAIRER [employer] #[id number] [facility] Art Therapist Addendum: 09/20/21 at 1747 by Jolene Peguero SS Amended: Links added.
[2021-09-20] MEDS: quetiapine 100mg tablet PO SCH (20:21)
[2021-09-20] MEDS: temazepam 15mg capsule PO PRN (20:22)
[2021-09-20 20:57] VITALS: BP 131/85
--- NOTE | 2021-09-21 01:45 | NUR ---
Nursing Progress Note: Legal hold: LPS Client on involuntary status for GD Report received from ELOY Carlson with use of SBAR: Why are they here: Pt admitted to [facility] for Behavioral health today on LPS conservatorship for Schizophrenia. Pt had escaped from this unit 4-5 days earlier. Pt walked back into the emergency room this morning. Pt has wounds to bilateral thumbs that could be cold weather injury and to L foot. Pt has been off of his meds since leaving. Pt immediately requests to go to lower level of care, return to [place] or leave today. Pt here for medication stabilization and placement. Assessment What has happened this shift: Patient still LOS. He refuses questions. He spent most of the night in his room. patient continues to drop things; water, food, meds. He dropped his HS medications, but he eventually took them. Patient has been asleep all night. S/I, H/I: Denies A/VH: Denies, Sleep: See sleep assessment ADL's: Requires direction and encouragement. Group attendance: N/A Were meds taken: Yes Any med S/E: None Mental Status Exam Appearance: Somewhat disheveled, however appropriately dressed Eye contact: Fair, intense at times Behavior: Cooperative/RTC, restless, irritable at times, guarded, ritualistic/repetitive, and impulsive Speech: Fragmented with paucity Mood: Guarded Affect: Blunted Thought process: Fragmented with possible thought blocking Thought Content: Perseveration on desire to obtain different objects and discharge Cognition: A&O x3 Insight: Poor Judgment: Poor Interventions PRN's used: Therapeutic interventions: Maintained a safe and supportive environment, ensured contract for safety, provided clear and simple instructions, provided direction and encouragement regarding performance of ADLs, monitored behaviors and maintained clear boundaries, provided positive reinforcement for positive behaviors and redirection for negative behaviors, and maintained Q 15min safety checks. Restraints/seclusion/emergency medication: N/A Justification of Continued Inpatient Treatment: Per Dr. Muller, pt. continues to require a safe and supportive environment
[2021-09-21 07:38] VITALS: BP 109/69
[2021-09-21] MEDS: atorvastatin 20mg tablet PO SCH (07:50)
[2021-09-21] MEDS: QUEtiapine 25mg tablet PO SCH ×4 (07:50→20:16)
[2021-09-21] MEDS: OLANZapine 5mg rapidly disint. tablet PO SCH (07:50)
[2021-09-21] MEDS: sertraline 25mg tablet PO SCH (07:50)
--- NOTE | 2021-09-21 09:15 | NUR ---
Pt. attended group today. Today we discussed Wellness and utilized the Self Care Wheel to help Patients determine the wellness/self-care activities they enjoy in each domain presented in the wheel. The four domains are the physical, spiritual, emotional and physical. Pt. came in and out of the group sitting down and listening at times. When asked if he would like to join in with the activity he replied no. His demeanor was pleasant and calm. Aleksandra Fuentes LCSW
--- NOTE | 2021-09-21 09:55 | NUR ---
Reassessment: Pt continues w/ variable meal intake on Regular diet, avg 22% x 9 meals w/ shakes TIDWM, peanut butter and jelly sandwiches BIDLD, and fluctuating acceptance of snacks; likely meeting minimum est nutrient needs at this time. Pt continues w/ throwing food trays on the floor and drops food, liquids, and meds on floor per supervisor packing room. Despite poor PO intake, pt wt remains within admit wt range. LBM 09/19; bowel care available PRN. Will continue to follow closely. Recommendations: 1. Continue regular diet as tolerated 2. Peanut butter and jelly sandwich BIDLD 3. Milkshake TIDWM; Encourage PO intake of meals/snacks 4. If PO remains poor, initiate nutrition support if MD agreeable and within POC 5. Recommend new CMP; last CMP 07/24 6. Routine bowel care 7. Weekly scaled weights Addendum: 09/21/21 at [address] Amended: Links added. Addendum: 09/21/21 at [address] I have reviewed and agree with note by Cadmium PlaterRj Mathew RD
[2021-09-21] MEDS: LORazepam 1 MG tablet PO PRN (11:14)
--- NOTE | 2021-09-21 16:54 | NUR ---
Pt. spit out routine PO Seroquel
--- NOTE | 2021-09-21 17:19 | NUR ---
Nursing Progress Note: Jozef Matthew Legal hold: LPS Conserved Client on involuntary status for GD Report received from Vanesa LYONS with use of SBAR Why are they here: Pt admitted to [facility] for Behavioral health on LPS conservatorship for Schizophrenia, pt. is here for medication stabilization and placement. Pt had escaped from this unit for 4-5 days returned with cold weather injuries to bilateral thumbs, and L foot. Pt has been off of his meds since leaving. Pt here for medication stabilization and placement. Assessment What has happened this shift: Received pt. pacing in the bernard, 1:1 assessment completed at the bedside. Pt. denies SI, HI, and endorses AH stating yea, yeah, times pt. speaks with fragmented, disorganized speech. Pt. reports he was admitted d/t Im here, I know pt. has no response re placement. Pt. attended meals in the dining room with cohorts, but sits alone, makes eye contact with others, but doesnt engage verbally. Pt. continues to eat poorly. Pt. presented as hyper sexual and sexually inappropriate, by exposing his penis to female staff and masturbating intermittently throughout the shift. Pt. spit out his medication at 1600. S/I, H/I: Denies A/VH: Endorses AH, Denies VH Sleep: None ADL's: Independent Group attendance: No Were Meds taken: Yes Any med S/E: None observed or reported Mental Status Exam Appearance: Pale, thin, young male in green unit scrubs Eye contact: Intense Behavior: Restless, and impulsive Speech: Fragmented, disorganized Mood: good Affect: Blunted Thought process: Fragmented with possible thought blocking Thought Content: Circumstantial Cognition: A&O x3 to self, time and place Insight: Poor Judgment: Poor Interventions PRN's used: Ativan Therapeutic interventions: Attempt made to have patient participate in morning assessment, provided clear and simple instructions, provided direction and encouragement regarding performance of ADLs, monitored behaviors and maintained clear boundaries, provided positive reinforcement for positive behaviors and redirection for negative behaviors, and maintained Q 15min safety checks. Restraints/seclusion/emergency medication: N/A Justification of Continued Inpatient Treatment: Patient continues to require a safe and supportive environment with medication adjustment and monitoring.
[2021-09-21] MEDS: quetiapine 100mg tablet PO SCH (20:16)
--- NOTE | 2021-09-22 04:03 | NUR ---
Nursing Progress Note: Jozef Matthew Legal hold: LPS Conserved Client on involuntary status for GD Report received from Robyn LYONS with use of SBAR Why are they here: Pt admitted to [facility] for Behavioral health on LPS conservatorship for Schizophrenia, pt. is here for medication stabilization and placement. Pt had escaped from this unit for 4-5 days returned with cold weather injuries to bilateral thumbs, and L foot. Pt has been off of his meds since leaving. Pt here for medication stabilization and placement. Assessment What has happened this shift: Patient was found standing in his doorway arguing with sitter. Patient was continuing to pace around unit mumbling to himself and displaying ocd behavior. Patient continued to get into many arguments with staff members. Patient had to be corrected multiple times through out the shift. Patient had to be encouraged to take all his medications. Eventually patient took all his medications and headed to bed. Patient gotten up a couple more times to ask for snacks before finally going to bed. S/I, H/I: Denies A/VH: Endorses AH, Denies VH Sleep: None ADL's: Independent Group attendance: No Were Meds taken: Yes Any med S/E: None observed or reported Mental Status Exam Appearance: Pale, thin, young male in green unit scrubs Eye contact: Intense Behavior: Restless, and impulsive Speech: Fragmented, disorganized Mood: good Affect: Blunted Thought process: Fragmented with possible thought blocking Thought Content: Circumstantial Cognition: A&O x3 to self, time and place Insight: Poor Judgment: Poor Interventions PRN's used: Therapeutic interventions: Attempt made to have patient participate in morning assessment, provided clear and simple instructions, provided direction and encouragement regarding performance of ADLs, monitored behaviors and maintained clear boundaries, provided positive reinforcement for positive behaviors and redirection for negative behaviors, and maintained Q 15min safety checks. Restraints/seclusion/emergency medication: N/A Justification of Continued Inpatient Treatment: Patient continues to require a safe and supportive environment with medication adjustment and monitoring.
[2021-09-22 07:22] VITALS: BP 106/68
[2021-09-22] MEDS: sertraline 25mg tablet PO SCH (07:23)
[2021-09-22] MEDS: QUEtiapine 25mg tablet PO SCH ×2 (07:23→12:18)
[2021-09-22] MEDS: OLANZapine 5mg rapidly disint. tablet PO SCH (07:23)
[2021-09-22] MEDS: atorvastatin 20mg tablet PO SCH (07:23)
[2021-09-22] MEDS: NICOTINE POLACRILEX 2 MG LOZENGE BC PRN ×2 (12:46→17:24)
--- NOTE | 2021-09-22 14:43 | NUR ---
PLACEMENT Sent updated notes (09/12-09/21) to [facility] office at their request. JAYCEE Aiken
--- NOTE | 2021-09-22 14:49 | NUR ---
PLACEMENT UPDATE [facility] is seeking IMD level of care. Clients packet is in the queue at [facility], [facility], [facility], [facility], and [facility]. Client is still declined at [facility] and [facility]. JAYCEE Aiken
--- NOTE | 2021-09-22 15:51 | NUR ---
Nursing Progress Note: Legal hold: LPS Client on involuntary status for GD Report received from nurse with use of SBAR: ELOY Alexis Why are they here: Pt admitted to [facility] for Behavioral health today on [facility] conservatorship for Schizophrenia. Pt had escaped from this unit 4-5 days earlier. Pt walked back into the emergency room this morning. Pt has wounds to bilateral thumbs that could be cold weather injury and to L foot. Pt has been off of his meds since leaving. Pt immediately requests to go to lower level of care, return to [place] or leave today. Pt here for medication stabilization and placement. Assessment What has happened this shift: Received pt. sleeping at the beginning of the shift, he awoke early and began pacing in the hallway with restlessness. Pt. requires ongoing direction from staff to complete ADLs and attend meals in the Group Room. He presents with thought blocking and is guarded with conversation giving inconsistent responses to direct questions, states, "Yes, no, yes." Pt's speech remains fragmented with paucity. He continues to perseverate on his desire to discharge and be given back privileges (be taken off LOS). This proposal writer provided education to pt. regarding the the reason for his placement back on [facility] and he did not respond. Later, pt. requested a Nicotine Lozenge and was able to place lozenge in his mouth without purposefully throwing it to the ground (shattering it into pieces) as he had previously done, this behavior was positively reinforced. Pt. remained up throughout the day and was observed to be exhibiting ritualistic/repetitive movements with ambulation as is his routine. Pt. did not exhibit any adverse behaviors (purposely dropping objects or spitting medications) or elopement attempts, however he remains on LOS for elopement precautions. S/I, H/I: Denies A/VH: Unable to assess due to inconsistency of response. Does not appear to be internally preoccupied Sleep: Sleep hours are 6.5 ADL's: Requires direction and encouragement. Ambulation is start and stop with ongoing ritualistic behaviors Group attendance: No Were meds taken: Yes Any med S/E: None Mental Status Exam Appearance: Somewhat disheveled, however appropriately dressed Eye contact: Fair Behavior: Cooperative, restless, guarded, withdrawn, ritualistic/repetitive, and impulsive Speech: Fragmented with paucity Mood: Guarded Affect: Blunted Thought process: Fragmented with possible thought blocking Thought Content:Perseveration on desire to discharge Cognition: A&O x3 Insight: Poor Judgment: Poor Interventions PRN's used: nicotine Lozenge Therapeutic interventions: Maintained a safe and supportive environment, ensured contract for safety, provided clear and simple instructions, provided direction and encouragement regarding performance of ADLs, monitored behaviors and maintained clear boundaries, provided positive reinforcement for positive behaviors and redirection for negative behaviors, and maintained LOS for elopement precautions. Restraints/seclusion/emergency medication: N/A Justification of Continued Inpatient Treatment: Pt. continues to require a safe and supportive environment while awaiting placement.
--- NOTE | 2021-09-22 16:08 | NUR ---
Group Art Tx. Continued: Patient came into the group room and sat down about 10 minutes after the session began. He was provided with paper and drawing materials. Patient sat at the table staring at his paper for about 10 minutes. Several times he began a gesture to draw and then stopped. Patient got up from the table without any communication, although he seemed to acknowledge that this therapist was saying goodbye and that he was welcome to return. Patient did return, coming in and out of the group room several times, walking by this therapist, stalling, and then leaving again. Patient remaiend calm and was never disruptive. *Please refer to [employer] for a complete overview of todays session. Jolene Peguero MA, VACU[employer] WORKER #[id number] [facility] Art Therapist Addendum: 09/22/21 at 1609 by Jolene Peguero SS Amended: Links added.
[2021-09-22] MEDS ORDERED: QUEtiapine 25mg tablet PO ONE ×2 (17:55→21:00)
--- NOTE | 2021-09-22 18:08 | NUR ---
Per Dr. Newlel, pt. to finish out Seroquel before starting on XR dose tomorrow at 1600. Obtained orders for previously scheduled 75mg and 100mg to be administered at 2100, and 75mg to be given now.
[2021-09-22 19:18] VITALS: BP 109/82
[2021-09-22] MEDS ORDERED: quetiapine 100mg tablet PO ONE (21:00)
--- NOTE | 2021-09-23 04:44 | NUR ---
Nursing Progress Note: Legal hold: LPS Client on involuntary status for GD Report received from nurse with use of SBAR: ELOY Garrett Why are they here: Pt admitted to [facility] for Behavioral health today on LPS conservatorship for Schizophrenia. Pt had escaped from this unit 4-5 days earlier. Pt walked back into the emergency room this morning. Pt has wounds to bilateral thumbs that could be cold weather injury and to L foot. Pt has been off of his meds since leaving. Pt immediately requests to go to lower level of care, return to [facility] or leave today. Pt here for medication stabilization and placement. Assessment What has happened this shift: Patient was received sitting on the edge of his bed at beginning of shift. Patients appears lethargic and pale in complexion. Patient was initially stumbling when walking towards nurse. Nurse had to repetitively encourage and direct patient when giving evening medications. Patient left isolation of room to gets snacks and then returned. Patient continues to periodically wake through out night. S/I, H/I: Denies A/VH: Unable to assess due to inconsistency of response. Does not appear to be internally preoccupied Sleep: See sleep assessment ADL's: Requires direction and encouragement. Ambulation is start and stop with ongoing ritualistic behaviors Group attendance: No Were meds taken: Yes Any med S/E: None Mental Status Exam Appearance: Pale young man dressed in green unit scrubs Eye contact: Fair Behavior: Cooperative, restless, guarded, withdrawn, ritualistic/repetitive, and impulsive Speech: Fragmented with paucity Mood: Guarded Affect: Blunted Thought process: Fragmented with possible thought blocking Thought Content:Perseveration on desire to discharge Cognition: A&O x3 Insight: Poor Judgment: Poor Interventions PRN's used: Therapeutic interventions: Maintained a safe and supportive environment, ensured contract for safety, provided clear and simple instructions, provided direction and encouragement regarding performance of ADLs, monitored behaviors and maintained clear boundaries, provided positive reinforcement for positive behaviors and redirection for negative behaviors, and maintained LOS for elopement precautions. Restraints/seclusion/emergency medication: N/A Justification of Continued Inpatient Treatment: Pt. continues to require a safe and supportive environment while awaiting placement.
[2021-09-23] MEDS: atorvastatin 20mg tablet PO SCH (07:49)
[2021-09-23] MEDS: NICOTINE POLACRILEX 2 MG LOZENGE BC PRN (07:50)
[2021-09-23 08:43] VITALS: BP 95/60
[2021-09-23 09:00] VITALS: BP 129/88
[2021-09-23] MEDS ORDERED: sertraline 50mg tablet PO SCH (16:00)
[2021-09-23] MEDS: QUETIAPINE 50 MG TAB.SR.24H PO SCH (16:39)
--- NOTE | 2021-09-23 17:39 | NUR ---
Nursing Progress Note: [place] Legal hold: [facility] Client on involuntary status for GD Report received from nurse with use of SBAR: Tere Salas RN Why are they here: Pt admitted to [facility] for Behavioral health today on LPS conservatorship for Schizophrenia. Pt had escaped from this unit 4-5 days earlier. Pt walked back into the emergency room this morning. Pt has wounds to bilateral thumbs that could be cold weather injury and to L foot. Pt has been off of his meds since leaving. Pt immediately requests to go to lower level of care, return to [facility] or leave today. Pt here for medication stabilization and placement. Assessment What has happened this shift: Patient was received walking around the unit at change of shift. He continues on LOS observation d/t previous elopement attempts. Patient received scheduled medication with hesitancy this morning, endorsing that he doesnt want the pill to turn him black. He was observed walking around the unit after breakfast. Patient complained of penis pain later in the morning, endorsing that he has a scab on his penis. This service writer and another staff member assessed patient and noted two small scabs at the distal end of penis which appear to be healing. notified with an order for HSV culture. Patient continues to perseverate on his desire to discharge and be given back privileges (be taken off LOS). This service writer provided educated patient on reason for LOS observation and encouraged positive behavior to be taken off of observation. Patient continues to present as restless and impulsive, noted walking around the unit making nonsensical statements throughout the day. Pt. requires ongoing direction from staff to complete ADLs and attend meals in the community room. His speech remains fragmented with paucity. Patient denies SI/HI, AH or VH. Does not appear to be responding to internal stimuli. He was active on the unit throughout the day, noted walking around the unit. He was noted spitting his scheduled medication onto the ground in his room around 1600. New medication pulled from [place] which patient took with encouragement. Patient does not communicate with or seem interested in any other peers on the unit. He joined in the community room for all meal and snack times with encouragement. S/I, H/I: Denies A/VH: Denies. Does not appear to be internally preoccupied Sleep: See sleep assessment. Patient noted napping for three hours today. ADL's: Requires direction and encouragement. Ambulation is start and stop with ongoing ritualistic behaviors Group attendance: No Were meds taken: Yes Any med S/E: None Mental Status Exam Appearance: Pale skin tone, somewhat disheveled, however appropriately dressed, wearing green unit scrubs. Eye contact: Fair Behavior: Cooperative, restless, guarded, withdrawn, ritualistic/repetitive, and impulsive Speech: Fragmented with paucity Mood: Guarded Affect: Blunted Thought process: Fragmented with possible thought blocking Thought Content: Perseveration on desire to discharge. Meeting needs. Cognition: A&O x3 Insight: Poor Judgment: Poor Interventions PRN's used: Nicotine Lozenge Therapeutic interventions: Maintained a safe and supportive environment, ensured contract for safety, provided clear and simple instructions, provided direction and encouragement regarding performance of ADLs, monitored behaviors and maintained clear boundaries, provided positive reinforcement for positive behaviors and redirection for negative behaviors, and maintained LOS for elopement precautions. Restraints/seclusion/emergency medication: N/A Justification of Continued Inpatient Treatment: Pt. continues to require a safe and supportive environment while awaiting placement.
[2021-09-23 19:00] VITALS: BP 132/85
--- NOTE | 2021-09-24 03:50 | NUR ---
Nursing Progress Note: [place] Legal hold: [facility] Client on involuntary status for GD Report received from nurse with use of SBAR: ELOY Garrett Why are they here: Pt admitted to [facility] for Behavioral health today on LPS conservatorship for Schizophrenia. Pt had escaped from this unit 4-5 days earlier. Pt walked back into the emergency room this morning. Pt has wounds to bilateral thumbs that could be cold weather injury and to L foot. Pt has been off of his meds since leaving. Pt immediately requests to go to lower level of care, return to [facility] or leave today. Pt here for medication stabilization and placement. Assessment What has happened this shift: Patient awake in his room at the beginning of shift. Pleasant and cooperative; no scheduled medications this shift. Patient denies SI, HI, A/VH; does not appear to be responding to IS and no apparent delusions reported. Patient remains on LOS for elopement risk. Remained in his room throughout this shift. Provided HS snack and shortly after observed sleeping; does not appear to be having difficulty. S/I, H/I: Denies A/VH: Denies Sleep: Refer to sleep assessment ADL's: Requires staff redirection; LOS for elopement risk Group attendance: NA Were meds taken: None scheduled this shift Any med S/E: NA Mental Status Exam Appearance: Pale, disheveled, appropriately dressed in green unit attire Eye contact: Fair Behavior: Cooperative, restless, guarded, withdrawn, ritualistic/repetitive, and impulsive Speech: Fragmented with paucity Mood: Guarded Affect: Blunted Thought process: Fragmented with possible thought blocking Thought Content: Perseveration on desire to discharge. Meeting needs. Cognition: A&O x3 Insight: Poor Judgment: Poor Interventions PRN's used: None Therapeutic interventions: Maintained a safe and supportive environment, ensured contract for safety, provided clear and simple instructions, provided direction and encouragement regarding performance of ADLs, monitored behaviors and maintained clear boundaries, provided positive reinforcement for positive behaviors and redirection for negative behaviors, and maintained LOS for elopement precautions. Restraints/seclusion/emergency medication: NA Justification of Continued Inpatient Treatment: Pt. continues to require a safe and supportive environment while awaiting placement.
[2021-09-24 08:00] VITALS: BP 105/77
[2021-09-24] MEDS: atorvastatin 20mg tablet PO SCH (08:28)
--- NOTE | 2021-09-24 09:50 | NUR ---
Reassessment: No significant changes in patient's PO intake, documented with 25% PO intake and meal refusals. Per commercial makeup artist pt appears to be not only participating in snacks but also asking for snacks at times. Despite poor meal intake patient's wt continues to remain stable with admit, currently +1.4 kg since first scaled weight. LBM 09/22. Will continue to follow closely. Recommendations: 1. Continue regular diet 2. Peanut butter and jelly sandwich BIDLD; milkshake TIDWM 3. Encourage PO intake of meals/snacks 4. If PO remains poor, initiate nutrition support if MD agreeable and within POC 5. Routine bowel care 6. Weekly scaled weights Addendum: 09/24/21 at [address] Amended: Links added.
[2021-09-24] MEDS: NICOTINE POLACRILEX 2 MG LOZENGE BC PRN (09:57)
--- NOTE | 2021-09-24 12:33 | NUR ---
Nursing Progress Note: Legal hold: LPS Client on involuntary status for GD Report received from nurse with use of SBAR: Tere Salas RN Why are they here: Pt admitted to [facility] for Behavioral health today on LPS conservatorship for Schizophrenia. Pt had escaped from this unit 4-5 days earlier. Pt walked back into the emergency room this morning. Pt has wounds to bilateral thumbs that could be cold weather injury and to L foot. Pt has been off of his meds since leaving. Pt immediately requests to go to lower level of care, return to [place] or leave today. Pt here for medication stabilization and placement. Assessment What has happened this shift: Received pt sleeping at the beginning of the shift. Pt woke for breakfast then joined the others in the main community room. Pt drank his juice and ate a muffin. He continues on LOS observation d/t previous elopement attempts. Patient received scheduled medication of Lipitor then spit it out on the floor and handed it back to the nurse. He was observed walking around the unit after breakfast. Pt. requires ongoing direction from staff to complete ADLs and attend meals in the community room. His speech remains fragmented. Pt continues with ritualistic behaviors. S/I, H/I: Denies A/VH: Denies Sleep: See sleep assessment. Patient noted napping in AM ADL's: Requires direction and encouragement. Group attendance: No Were Meds taken: Yes Any med S/E: None Mental Status Exam Appearance: Pale skin tone, disheveled, wearing green unit scrubs. Eye contact: Fair Behavior: Cooperative, restless, ritualistic/repetitive Speech: Fragmented Mood: Guarded Affect: Blunted Thought process: Fragmented with possible thought blocking Thought Content: Perseveration on desire to discharge. Meeting needs. Cognition: A&O x3 Insight: Poor Judgment: Poor Interventions PRN's used: Nicotine Lozenge Therapeutic interventions: Provided 1:1 assessment, provided clear and simple instructions, provided direction and encouragement regarding performance of ADLs, medication administration/educaion/monitoring, monitored behaviors and maintained clear boundaries, provided positive reinforcement for positive behaviors and redirection for negative behaviors, and maintained LOS for elopement precautions. Restraints/seclusion/emergency medication: N/A Justification of Continued Inpatient Treatment: Pt. continues to require a safe and supportive environment while awaiting placement.
[2021-09-24] MEDS: QUETIAPINE 50 MG TAB.SR.24H PO SCH (16:07)
[2021-09-24] MEDS: sertraline 50mg tablet PO SCH (16:07)
[2021-09-24 19:22] VITALS: BP 116/78
--- NOTE | 2021-09-25 01:34 | NUR ---
Nursing Progress Note: Legal hold: LPS Client on involuntary status for GD Report received from nurse with use of SBAR: Gerry LYONS Why are they here: Pt admitted to [facility] for Behavioral health today on LPS conservatorship for Schizophrenia. Pt had escaped from this unit 4-5 days earlier. Pt walked back into the emergency room this morning. Pt has wounds to bilateral thumbs that could be cold weather injury and to L foot. Pt has been off of his meds since leaving. Pt immediately requests to go to lower level of care, return to [facility] or leave today. Pt here for medication stabilization and placement. Assessment What has happened this shift: Pt continues to be on LOS. Pt isolates to his room most of the shift, but when he does come out he has a blank look on his face, hops slightly and and walks up and down the [place], unsure of which direction to go. When RN talks to pt, he stops, stares past RN and will not respond. Pt Herpes PRC still pending. S/I, H/I: Denies A/VH: Denies Sleep: See sleep assessment ADL's: Requires direction and encouragement. Group attendance: No Were Meds taken: Yes Any med S/E: None Mental Status Exam Appearance: Pale skin tone, disheveled, wearing green unit scrubs. Eye contact: poor Behavior: ritualistic, restless Speech: Fragmented Mood: Guarded Affect: Blunted Thought process: Fragmented with possible thought blocking Thought Content: Perseveration on desire to discharge. Meeting needs. Cognition: A&O x3 Insight: Poor Judgment: Poor Interventions PRN's used: NA Therapeutic interventions: Provided 1:1 assessment, provided clear and simple instructions, provided direction and encouragement regarding performance of ADLs, medication administration/education/monitoring, monitored behaviors and maintained clear boundaries, provided positive reinforcement for positive behaviors and redirection for negative behaviors, and maintained LOS for elopement precautions. Restraints/seclusion/emergency medication: N/A Justification of Continued Inpatient Treatment: Pt. continues to require a safe and supportive environment while awaiting placement.
[2021-09-25 08:00] VITALS: BP 108/70
[2021-09-25] MEDS: atorvastatin 20mg tablet PO SCH (08:33)
--- NOTE | 2021-09-25 12:43 | NUR ---
Nursing Progress Note Legal hold: LPS Conserved Client on involuntary status for GD Report received from RN with use of SBAR Why are they here: Pt admitted to [facility] for Behavioral health today on LPS conservatorship for Schizophrenia. Pt had escaped from this unit 4-5 days earlier. Pt walked back into the emergency room this morning. Pt has wounds to bilateral thumbs that could be cold weather injury and to L foot. Pt has been off of his meds since leaving. Pt immediately requests to go to lower level of care, return to [facility] or leave today. Pt here for medication stabilization and placement. Assessment What has happened this shift: Received Pt in bed sleeping w/o distress at the beginning of the shift. Pt woke and cooperative with vitals. Pt continues to not answer Qs directly. Pt ate small amounts of his meals. Pt resisted AM med, but took eventually. Pt spent most of the day in his room and looked exhausted. Pt remains on los observation for elopement precaution. S/I, H/I: Denies A/VH: Denies Sleep: None this shift ADL's: Independent Group attendance: No Were Meds taken: Yes Any med S/E: None observed or reported Mental Status Exam Appearance: Casual in green scrubs Eye contact: Good Behavior: anxious; resistive to care Speech: Fragmented, disorganized Mood: ok Affect: Blunted Thought process: Fragmented with possible thought blocking Thought Content: Circumstantial Cognition: A&O x3 to self, time and place Insight: Poor Judgment: Poor Interventions PRN's used: None Therapeutic interventions: Attempt made to have patient participate in morning assessment and conversation, provided clear and simple instructions, provided direction and encouragement regarding performance of ADLs, monitored behaviors and maintained clear boundaries, provided positive reinforcement for positive behaviors and redirection for negative behaviors, and maintained Q 15min safety checks. Restraints/seclusion/emergency medication: N/A Justification of Continued Inpatient Treatment: Patient continues to require a safe and supportive environment with medication adjustment and monitoring.
[2021-09-25] MEDS: QUETIAPINE 50 MG TAB.SR.24H PO SCH (16:05)
[2021-09-25] MEDS: sertraline 50mg tablet PO SCH (16:06)
[2021-09-25 19:39] VITALS: BP 111/71
[2021-09-25 19:43] VITALS: BP 111/71
--- NOTE | 2021-09-26 00:13 | NUR ---
ursing Progress Note Legal hold: LPS Conserved Client on involuntary status for GD Report received from RN with use of SBAR Why are they here: Pt admitted to [facility] for Behavioral health today on LPS conservatorship for Schizophrenia. Pt had escaped from this unit 4-5 days earlier. Pt walked back into the emergency room this morning. Pt has wounds to bilateral thumbs that could be cold weather injury and to L foot. Pt has been off of his meds since leaving. Pt immediately requests to go to lower level of care, return to [facility] or leave today. Pt here for medication stabilization and placement. Assessment What has happened this shift: Pt in bed awake in a dark room at the beginning of the shift. Minimal answers to questions. Declined snack. No medications due this shift. Sitter outside door. LOS for elopement prevention. Pt did not attempt to check doors this shift. S/I, H/I: Denies A/VH: Denies Sleep: Asleep at this time. ADL's: Independent Group attendance: No Were Meds taken: None due this shift. Any med S/E: None observed or reported Mental Status Exam Appearance: Casual in green scrubs Eye contact: Good Behavior: Minimal responses. Speech: Poverty of speech Mood: ok Affect: Blunted Thought process: Fragmented with possible thought blocking Thought Content: Circumstantial Cognition: A&O x3 to self, time and place Insight: Poor Judgment: Poor Interventions PRN's used: None Therapeutic interventions: Attempt made to have patient participate in morning assessment and conversation, provided clear and simple instructions, provided direction and encouragement regarding performance of ADLs, monitored behaviors and maintained clear boundaries, provided positive reinforcement for positive behaviors and redirection for negative behaviors, and maintained Q 15min safety checks. Restraints/seclusion/emergency medication: N/A Justification of Continued Inpatient Treatment: Patient continues to require a safe and supportive environment with medication adjustment and monitoring.
[2021-09-26 08:00] VITALS: BP 113/84
--- NOTE | 2021-09-26 12:35 | NUR ---
Nursing Progress Note: Legal hold: LPS Client on involuntary status for GD Report received from nurse with use of SBAR: ELOY Celis Why are they here: Pt admitted to [facility] for Behavioral health today on LPS conservatorship for Schizophrenia. Pt had escaped from this unit 4-5 days earlier. Pt walked back into the emergency room this morning. Pt has wounds to bilateral thumbs that could be cold weather injury and to L foot. Pt has been off of his meds since leaving. Pt immediately requests to go to lower level of care, return to [facility] or leave today. Pt here for medication stabilization and placement. Assessment What has happened this shift: Received pt sitting in chair in hallway. Pt asked about propping up his feet to decrease swelling and he stated with angry affect, "I've been trying to tell you, I won the fucking contest! You owe me $500." Pt walked away without further agitation and was calmer the remainder of shift, but continues to blurt random nonsense. Pt denies mental health symptoms, but appears to respond to internal stimuli at times during the shift. S/I, H/I: Denies A/VH: Denies Sleep: 3.5 hours on noc, napping intermittently throughout the day ADL's: Requires direction and encouragement. Group attendance: No Were Meds taken: Yes Any med S/E: None Mental Status Exam Appearance: Pale skin tone, disheveled, wearing green unit scrubs. Eye contact: Fair Behavior: Cooperative, restless, ritualistic/repetitive Speech: Fragmented Mood: Guarded Affect: Blunted Thought process: Fragmented with possible thought blocking Thought Content: Perseveration on desire to discharge. Meeting needs. Cognition: A&O x3 Insight: Poor Judgment: Poor Interventions PRN's used: Therapeutic interventions: Provided 1:1 assessment, provided clear and simple instructions, provided direction and encouragement regarding performance of ADLs, medication administration/educaion/monitoring, monitored behaviors and maintained clear boundaries, provided positive reinforcement for positive behaviors and redirection for negative behaviors, and maintained LOS for elopement precautions. Restraints/seclusion/emergency medication: N/A Justification of Continued Inpatient Treatment: Pt. continues to require a safe and supportive environment while awaiting placement.
[2021-09-26] MEDS: atorvastatin 20mg tablet PO SCH (16:00)
[2021-09-26] MEDS: QUETIAPINE 50 MG TAB.SR.24H PO SCH (16:00)
[2021-09-26] MEDS: sertraline 50mg tablet PO SCH (16:00)
--- NOTE | 2021-09-26 16:41 | NUR ---
Nursing Progress Note Legal hold: LPS Conserved Client on involuntary status for GD Report received from RN with use of SBAR Why are they here: Pt admitted to [facility] for Behavioral health today on LPS conservatorship for Schizophrenia. Pt had escaped from this unit 4-5 days earlier. Pt walked back into the emergency room this morning. Pt has wounds to bilateral thumbs that could be cold weather injury and to L foot. Pt has been off of his meds since leaving. Pt immediately requests to go to lower level of care, return to [facility] or leave today. Pt here for medication stabilization and placement. Assessment What has happened this shift: Received Pt in bed sleeping w/o distress at the beginning of the shift. Pt woke and cooperative with vitals. Pt continues to not answer Qs directly. Pt ate a muffin for breakfast and little of his lunch. Pt spent most of the day in his room. Pt remains on los observation for elopement precaution. Pt spit out all of his 1600 meds after putting them in his mouth and with much encouragement: Pt stated no, no, they are bad. S/I, H/I: Denies A/VH: Denies Sleep: None this shift ADL's: Independent Group attendance: No Were Meds taken: Yes Any med S/E: None observed or reported Mental Status Exam Appearance: Casual in green scrubs Eye contact: Good Behavior: anxious; resistive to care Speech: Fragmented, disorganized Mood: Good Affect: Blunted Thought process: Fragmented with possible thought blocking Thought Content: Circumstantial Cognition: A&O x3 to self, time and place Insight: Poor Judgment: Poor Interventions PRN's used: None Therapeutic interventions: Attempt to have patient participate in morning assessment and conversation, provided clear and simple instructions, provided direction and encouragement regarding performance of ADLs, monitored behaviors and maintained clear boundaries, provided positive reinforcement for positive behaviors and redirection for negative behaviors, and maintained Q 15min safety checks. Restraints/seclusion/emergency medication: N/A Justification of Continued Inpatient Treatment: Patient continues to require a safe and supportive environment with medication adjustment and monitoring.
[2021-09-26 19:38] VITALS: BP 110/66
--- NOTE | 2021-09-27 02:12 | NUR ---
Nursing Progress Note: Legal hold: LPS Client on involuntary status for GD Report received from nurse with use of SBAR: ELOY Garrett Why are they here: Pt admitted to [facility] today on LPS conservatorship for Schizophrenia. Pt had escaped from this unit 4-5 days earlier. Pt walked back into the emergency room this morning. Pt has wounds to bilateral thumbs that could be cold weather injury and to L foot. Pt has been off of his meds since leaving. Pt immediately requests to go to lower level of care, return to [place] or leave today. Pt here for medication stabilization and placement. Assessment What has happened this shift: Patient laying in bed awake at the beginning of shift. Pleasant and cooperative with care. Denies SI, HI, A/VH. Patient LOS discontinued; no door checking observed this shift. Patient walked out of his room and asked grant writer, "what's wrong," as if he was just trying to start a conversation. He then asked, "do you have dope?" Mold Polisher explained that kind of drug was unavailable here. Mold Polisher asked if he'd like snacks and he appeared to get excited over the Oreos. Patient joking with grant writer over a "high five" and returned to bed; observed sleeping and does not appear to be having difficulty. S/I, H/I: Denies A/VH: Denies Sleep: Refer to sleep assessment ADL's: Requires staff redirection at times Group attendance: NA Were meds taken: None scheduled this shift Any med S/E: NA Mental Status Exam Appearance: Pale, disheveled, appropriately dressed in green unit attire Eye contact: Fair Behavior: Pleasant and cooperative, ritualistic/repetitive Speech: Fragmented with paucity Mood: Guarded Affect: Blunted Thought process: Fragmented with possible thought blocking Thought Content: Meeting needs Cognition: A&O x3 Insight: Poor Judgment: Poor Interventions PRN's used: None Therapeutic interventions: Maintained a safe and supportive environment, ensured contract for safety, provided clear and simple instructions, provided direction and encouragement regarding performance of ADLs, monitored behaviors and maintained clear boundaries, provided positive reinforcement for positive behaviors and redirection for negative behaviors, and maintained LOS for elopement precautions. Restraints/seclusion/emergency medication: NA Justification of Continued Inpatient Treatment: Pt. continues to require a safe and supportive environment while awaiting placement. Addendum: 09/27/21 at 0253 by Brittney Deng RN Patient awoke and reported difficulty sleeping; PRN Temazepam provided.
[2021-09-27] MEDS: temazepam 15mg capsule PO PRN (02:53)
[2021-09-27] MEDS: LORazepam 1 MG tablet PO PRN ×2 (04:21→10:55)
[2021-09-27] MEDS: NICOTINE POLACRILEX 2 MG LOZENGE BC PRN ×2 (06:16→10:55)
[2021-09-27 08:00] VITALS: BP 109/64
--- NOTE | 2021-09-27 08:19 | NUR ---
Reassessment: No significant changes in patient's PO intake, documented with 25% PO intake and meal refusals. Per behavioral health specialist pt appears to be not only participating in snacks but also asking for snacks at times. Despite poor meal intake patient's wt continues to remain stable with admit, currently +1.4 kg since first scaled weight. LBM 09/26. Will continue to follow closely. Recommendations: 1. Continue regular diet 2. Peanut butter and jelly sandwich BIDLD; milkshake TIDWM 3. Encourage PO intake of meals/snacks 4. If PO remains poor, initiate nutrition support if MD agreeable and within POC 5. Routine bowel care 6. Weekly scaled weights Addendum: 09/27/21 at [address] Amended: Links added.
--- NOTE | 2021-09-27 13:36 | NUR ---
Nursing Progress Note: Legal hold: LPS Client on involuntary status for GD Report received from nurse, ELOY Alexis with use of SBAR Why are they here: [facility] LPS conservatorship for Schizophrenia. Pt had escaped from this unit 4-5 days earlier. Pt walked back into the emergency room this morning. Pt has wounds to bilateral thumbs that could be cold weather injury and to L foot. Pt has been off of his meds since leaving. Pt immediately requests to go to lower level of care, return to [place] or leave today. Pt here for medication stabilization and placement. Assessment What has happened this shift: Received pt up talking to the retail shift leader occasionally seen hoping in place. Observed ritualistic and repetitive behaviors during the shift. Pt is smiling most of this shift. Pt at times will touch staff inappropriately. He then grins or apologizes and walks away. Pt given Ativan 1mg for anxiety. He asked for a Nicotine Latoya. then spit it out. Pt dropped his lunch tray then cleaned it up himself. S/I, H/I: Denies A/VH: Denies Sleep: up this shift ADL's: Requires direction and encouragement. Group attendance: No Were Meds taken: Yes Any med S/E: None Mental Status Exam Appearance: Pale skin tone, disheveled, wearing green unit scrubs. Eye contact: Fair Behavior: Cooperative, restless, ritualistic/repetitive Speech: Fragmented Mood: Guarded Affect: Blunted Thought process: Fragmented with possible thought blocking Thought Content: Perseveration on desire to discharge. Meeting needs. Cognition: A&O x3 Insight: Poor Judgment: Poor Interventions PRN's used: Therapeutic interventions: Provided 1:1 assessment, provided clear and simple instructions, provided direction and encouragement regarding performance of ADLs, medication administration/education/monitoring, monitored behaviors and maintained clear boundaries, provided positive reinforcement for positive behaviors and redirection for negative behaviors, and maintained LOS for elopement precautions. Restraints/seclusion/emergency medication: N/A Justification of Continued Inpatient Treatment: Pt. continues to require a safe and supportive environment while awaiting placement. Addendum: 09/27/21 at 1659 by Tyshawn Tillman RN Pt chewed up medications and then he was followed for 5-10 minutes and eventually spit them out on the floor. Pt then started posturing and striking out at staff. Show of supported called and pt escorted back to his room and given IM medications around 1635.
[2021-09-27] MEDS: QUETIAPINE 50 MG TAB.SR.24H PO SCH (16:00)
[2021-09-27] MEDS: sertraline 50mg tablet PO SCH (16:00)
[2021-09-27] MEDS: atorvastatin 20mg tablet PO SCH (16:00)
[2021-09-27] MEDS ORDERED: haloperidol lactate 5mg/ml inj ONE ×2 (16:35→16:36)
[2021-09-27] MEDS ORDERED: LORazepam 2 mg/ml vial ONE (16:35)
--- NOTE | 2021-09-27 17:25 | NUR ---
Group Art Tx. Continued: Patient did not choose to draw or write during the group, however, he did remain in the group, sitting at the table listening for the duration of the session. He did not exhibit his usual behavior of standing up and down repetitively. Patient left at the end of the group, and 10 minutes later, returned to the room without any other person present. Patient choose to do a free drawing. Patient completed his picture and then asked this therapist " Do you like to do art"? Patient explained that he had drawn: "This is a river, this is the sun. Patient also noted, that there was nothing else around his objects on the paper. *Please refer to [facility] for a complete review of the session. Jolene Peguero, [employer] CELL #[id number] [facility], Art Therapist
[2021-09-27 19:00] VITALS: BP 104/67
--- NOTE | 2021-09-28 03:42 | NUR ---
Nursing Progress Note: Legal hold: LPS Client on involuntary status for GD Report received from nurse with use of SBAR: ELOY Garrett Why are they here: Pt admitted to [facility] today on LPS conservatorship for Schizophrenia. Pt had escaped from this unit 4-5 days earlier. Pt walked back into the emergency room this morning. Pt has wounds to bilateral thumbs that could be cold weather injury and to L foot. Pt has been off of his meds since leaving. Pt immediately requests to go to lower level of care, return to [place] or leave today. Pt here for medication stabilization and placement. Assessment What has happened this shift: Patient sleeping in bed at the beginning of shift. Pleasant and cooperative with care. He remained in bed the majority of shift. Briefly came out of his room for a snack and quickly returned to bed; observed sleeping and does not appear to be having difficulty. S/I, H/I: Denies A/VH: Denies Sleep: Refer to sleep assessment ADL's: Requires staff redirection at times Group attendance: NA Were meds taken: None scheduled this shift Any med S/E: NA Mental Status Exam Appearance: Pale, disheveled, appropriately dressed in green unit attire Eye contact: Fair Behavior: Pleasant and cooperative, ritualistic/repetitive Speech: Fragmented with paucity Mood: Fatigued Affect: Congruent Thought process: Fragmented with possible thought blocking Thought Content: Meeting needs Cognition: A&O x3 Insight: Poor Judgment: Poor Interventions PRN's used: None Therapeutic interventions: Maintained a safe and supportive environment, ensured contract for safety, provided clear and simple instructions, provided direction and encouragement regarding performance of ADLs, monitored behaviors and maintained clear boundaries, provided positive reinforcement for positive behaviors and redirection for negative behaviors, and maintained LOS for elopement precautions. Restraints/seclusion/emergency medication: NA Justification of Continued Inpatient Treatment: Pt. continues to require a safe and supportive environment while awaiting placement.
[2021-09-28 08:00] VITALS: BP 103/60
[2021-09-28] MEDS: naltrexone 50mg tablet PO SCH (08:20)
[2021-09-28] MEDS: LORazepam 1 MG tablet PO PRN (08:24)
[2021-09-28] MEDS: NICOTINE POLACRILEX 2 MG LOZENGE BC PRN ×2 (08:25→13:04)
[2021-09-28] MEDS: mineral oil/pet hy-phy 85gm ointment TP PRN (13:28)
[2021-09-28 15:44] LABS: HSV 1 PCR Negative (Negative); HSV 2 PCR Negative (Negative)
[2021-09-28] MEDS: QUETIAPINE 50 MG TAB.SR.24H PO SCH (16:36)
[2021-09-28] MEDS: sertraline 50mg tablet PO SCH (16:36)
[2021-09-28] MEDS: atorvastatin 20mg tablet PO SCH (16:36)
--- NOTE | 2021-09-28 17:42 | NUR ---
Nursing Progress Note: [place] Legal hold: [facility] Client on involuntary status for GD Report received from nurse with use of SBAR: ELOY Alexis Why are they here: Pt admitted to [facility] today on LPS conservatorship for Schizophrenia. Pt had escaped from this unit 4-5 days earlier. Pt walked back into the emergency room this morning. Pt has wounds to bilateral thumbs that could be cold weather injury and to L foot. Pt has been off of his meds since leaving. Pt immediately requests to go to lower level of care, return to [place] or leave today. Pt here for medication stabilization and placement. Assessment What has happened this shift: Patient observed sleeping in bed at change of shift. He was awoken to join for breakfast in the community room. Patient noted sitting at a table with his food completely untouched before walking to the exit and proceeding to drop his tray onto the ground. Patient and staff noted cleaning up the spill. He was reluctant to take scheduled medication this morning, however, was taken with encouragement. 1:1 assessment completed, lungs CTA. Patient noted spilling a cup of water onto the ground after being given water to drink with his medication. Patient cleaned up the spill with a towel. Patient c/o feeling on edge and was given PRN Ativan at approximately 1055. Patient presents as restless, impulsive, and labile. Speech is noted to be less fragmented today. Patient observed speaking in full sentences, making his needs known. He was noted air-punching toward another staff member completely unprovoked. He was redirected and noted walking quietly around the unit shortly after. He attempted to open the exit door in an attempt to escape the unit. Patient advised that such behaviors would require LOS observation if continues. He continues to perseverate on discharge throughout this shift. Patient denies SI/HI, AH or VH. Does not appear to be responding to internal stimuli. Patient noted making a delusional statement of having a tick inside of him later in the day. He was redirected and encouraged to participate in diversional activities on the unit. Patient observed participating in group therapy today, interacting appropriately with peers. He was active on the unit the majority of the day and participated in the community room for snack/meal times. S/I, H/I: Denies A/VH: Denies. Does not appear to be responding to IS. Sleep: Patient slept 10.5 hours last night per NOC shift, one hour nap noted on this shift. ADL's: Requires staff redirection at times Group attendance: Yes Were meds taken: Yes, with prompting Any med S/E: None observed or reported Mental Status Exam Appearance: Pale, disheveled, appropriately dressed in green unit attire Eye contact: Fair Behavior: Ritualistic, impulsive, labile Speech: Fragmented with paucity, less fragmented today than previously Mood: Fatigued, feeling on edge Affect: Flat with intense staring Thought process: Fragmented with possible thought blocking Thought Content: Meeting needs. Perseveration on discharge. Cognition: A&O x2 Insight: Poor Judgment: Poor Interventions PRN's used: Ativan 1mg PO, Nicotine lozenges Therapeutic interventions: Maintained a safe and supportive environment, ensured contract for safety, provided clear and simple instructions, provided direction and encouragement regarding performance of ADLs, monitored behaviors and maintained clear boundaries, provided positive reinforcement for positive behaviors and redirection for negative behaviors, and maintained Q15 min safety checks. Restraints/seclusion/emergency medication: NA Justification of Continued Inpatient Treatment: Pt. continues to require a safe and supportive environment while awaiting placement.
[2021-09-28 20:41] VITALS: BP 102/60
--- NOTE | 2021-09-29 02:12 | NUR ---
Nursing Progress Note: Legal hold: LPS Client on involuntary status for GD Report received from nurse with use of SBAR: ELOY Garrett Why are they here: Pt admitted to [facility] today on LPS conservatorship for Schizophrenia. Pt had escaped from this unit 4-5 days earlier. Pt walked back into the emergency room this morning. Pt has wounds to bilateral thumbs that could be cold weather injury and to L foot. Pt has been off of his meds since leaving. Pt immediately requests to go to lower level of care, return to [place] or leave today. Pt here for medication stabilization and placement. Assessment What has happened this shift: Received pt in [facility]. Pt soon went to bed and was asleep by 193 and remains asleep currently. S/I, H/I: Denies A/VH: Denies Sleep: See sleep assessment. ADL's: Requires direction and encouragement. Group attendance: N/a Were Meds taken: Yes Any med S/E: None Mental Status Exam Appearance: Pale skin tone, disheveled, wearing green unit scrubs. Eye contact: Fair Behavior: Cooperative, restless, ritualistic/repetitive Speech: Fragmented Mood: Guarded Affect: Blunted Thought process: Fragmented with possible thought blocking Thought Content: Perseveration on desire to discharge. Meeting needs. Cognition: A&O x3 Insight: Poor Judgment: Poor Interventions PRN's used: Therapeutic interventions: Provided 1:1 assessment, provided clear and simple instructions, provided direction and encouragement regarding performance of ADLs, medication administration/educaion/monitoring, monitored behaviors and maintained clear boundaries, provided positive reinforcement for positive behaviors and redirection for negative behaviors, and maintained LOS for elopement precautions. Restraints/seclusion/emergency medication: N/A Justification of Continued Inpatient Treatment: Pt. continues to require a safe and supportive environment while awaiting placement.
[2021-09-29] MEDS: LORazepam 1 MG tablet PO PRN (06:06)
[2021-09-29 07:53] VITALS: BP 124/78
[2021-09-29] MEDS: naltrexone 50mg tablet PO SCH (08:11)
[2021-09-29] MEDS: NICOTINE POLACRILEX 2 MG LOZENGE BC PRN (08:37)
--- NOTE | 2021-09-29 10:50 | NUR ---
PLACEMENT UPDATE [facility] is seeking IMD level of care. Clients packet is in the queue at [facility], [facility], [facility], [facility], and [facility]. As of 09/28/2021, [facility], [facility], and [facility] reported that there are no beds available; still awaiting response from [facility] and [facility] on bed availability and status of clients referral. Client is still declined at [facility] and [facility]. JAYCEE Aiken
[2021-09-29] MEDS: atorvastatin 20mg tablet PO SCH (16:21)
[2021-09-29] MEDS: sertraline 50mg tablet PO SCH (16:22)
[2021-09-29] MEDS: QUETIAPINE 50 MG TAB.SR.24H PO SCH (16:22)
--- NOTE | 2021-09-29 17:46 | NUR ---
Nursing Progress Note: [place] Legal hold: [facility] Client on involuntary status for GD Report received from nurse with use of SBAR: ELOY Alexis Why are they here: [facility] LPS conservatorship for Schizophrenia. Pt had escaped from this unit 4-5 days earlier. Pt walked back into the emergency room this morning. Pt has wounds to bilateral thumbs that could be cold weather injury and to L foot. Pt has been off of his meds since leaving. Pt immediately requests to go to lower level of care, return to [place] or leave today. Pt here for medication stabilization and placement. Assessment What has happened this shift: RN received pt. asleep in bed at start of shift. Pt. took medications and ate breakfast. Pt. asks repeatedly about being placed on Loxapine. Pt. observed socializing with peers and staff. Pt. gives minimal information during interview, but states he wants to be discharged so he can go and smoke some cigarettes. Pt. became more frustrated in the afternoon attempting to open exit doors and swearing at staff. Pt. placed in isolation room for .5 hrs. Pt. in a pleasant mood the rest of shift and observed doing jumps and spins. Pt. attempted to explain his feelings of OCD, stating, I try and do some steps, but then I have to do it over. S/I, H/I: Denies A/VH: Denies. Sleep: Patient slept 9.25 hours last night per NOC shift, and did not appear to nap during the day. ADL's: Requires prompting at times. Group attendance: No Were meds taken: Yes, with prompting Any med S/E: Denies. None observed. Mental Status Exam Appearance: Pale, disheveled, appropriately dressed in green unit attire Eye contact: Fair Behavior: Ritualistic, impulsive, labile Speech: Has some pauses and delays. Mood: Frustrated at times. Affect: Flat with intense staring Thought process: Thought blocking. Thought Content: Meeting needs. Perseveration on discharge. Cognition: A&O x2 Insight: Poor Judgment: Poor Interventions PRN's used: Milk of magnesia. Therapeutic interventions: Maintained a safe and supportive environment, ensured contract for safety, provided clear and simple instructions, provided direction and encouragement regarding performance of ADLs, monitored behaviors and maintained clear boundaries, provided positive reinforcement for positive behaviors and redirection for negative behaviors, and maintained Q15 min safety checks. Restraints/seclusion/emergency medication: NA Justification of Continued Inpatient Treatment: Pt. continues to require a safe and supportive environment while awaiting placement.
--- NOTE | 2021-09-30 04:20 | NUR ---
Nursing Progress Note: Legal hold: LPS Client on involuntary status for GD Report received from nurse with use of SBAR: ELOY Berkowitz Why are they here: Pt admitted to [facility] today on LPS conservatorship for Schizophrenia. Pt had escaped from this unit 4-5 days earlier. Pt walked back into the emergency room this morning. Pt has wounds to bilateral thumbs that could be cold weather injury and to L foot. Pt has been off of his meds since leaving. Pt immediately requests to go to lower level of care, return to [place] or leave today. Pt here for medication stabilization and placement. Assessment What has happened this shift: Patient found sleeping in bed at beginning of shift. Patient continues to sleep through first half of shift and snack time. Patient was observed walking around unit at 0200 asking for snacks and materials to color with. Patient was given prn Restoril in order to help patient go back to sleep. Patient took medication and went back into room. S/I, H/I: Denies A/VH: Denies Sleep: See sleep assessment. ADL's: Requires direction and encouragement. Group attendance: N/a Were Meds taken: Yes Any med S/E: None Mental Status Exam Appearance: Pale skin tone, disheveled, wearing green unit scrubs. Eye contact: Fair Behavior: Cooperative, restless, ritualistic/repetitive Speech: Fragmented Mood: Guarded Affect: Blunted Thought process: Fragmented with possible thought blocking Thought Content: Perseveration on desire to discharge. Meeting needs. Cognition: A&O x3 Insight: Poor Judgment: Poor Interventions PRN's used: Therapeutic interventions: Provided 1:1 assessment, provided clear and simple instructions, provided direction and encouragement regarding performance of ADLs, medication administration/educaion/monitoring, monitored behaviors and maintained clear boundaries, provided positive reinforcement for positive behaviors and redirection for negative behaviors, and maintained LOS for elopement precautions. Restraints/seclusion/emergency medication: N/A Justification of Continued Inpatient Treatment: Pt. continues to require a safe and supportive environment while awaiting placement.
[2021-09-30] MEDS: temazepam 15mg capsule PO PRN (05:02)
[2021-09-30] MEDS: acetaminophen 325mg tablet PO PRN (07:10)
[2021-09-30 07:22] VITALS: BP 104/78
[2021-09-30] MEDS: naltrexone 50mg tablet PO SCH (08:50)
--- NOTE | 2021-09-30 12:27 | NUR ---
Reassessment: Pt PO intake continues to remain poor, w/ 25% PO intake and meal refusals. Per b2b account executive pt appears to be consuming snacks regularly. Despite poor meal intake patient's wt continues to remain stable with admit. LBM 09/29. Will continue to follow closely. Recommendations: 1. Continue regular diet 2. Peanut butter and jelly sandwich BIDLD; milkshake TIDWM 3. Encourage PO intake of meals/snacks 4. If PO remains poor, initiate nutrition support if MD agreeable and within POC 5. Routine bowel care 6. Weekly scaled weights Addendum: 09/30/21 at 1227 by Gricelda Irby Tie Maker RD Amended: Links added. Addendum: 09/30/21 at [address] I have reviewed and agree with note by Tie MakerRj Mathew RD
[2021-09-30] MEDS: NICOTINE POLACRILEX 2 MG LOZENGE BC PRN (12:44)
[2021-09-30] MEDS ORDERED: loperamide 2mg capsule PO PRN (13:40)
[2021-09-30] MEDS: magnesium hydroxide 30ml (MOM) UD suspension PO PRN (14:14)
[2021-09-30] MEDS: QUETIAPINE 50 MG TAB.SR.24H PO SCH (16:00)
[2021-09-30] MEDS: sertraline 50mg tablet PO SCH (16:00)
[2021-09-30] MEDS: atorvastatin 20mg tablet PO SCH (16:00)
[2021-09-30] MEDS ORDERED: diphenhydrAMINE 50 mg/ml inj IM ONE (17:40)
[2021-09-30] MEDS ORDERED: LORazepam 2 mg/ml vial IM ONE (17:40)
[2021-09-30] MEDS ORDERED: haloperidol lactate 5mg/ml inj IM ONE (17:40)
--- NOTE | 2021-09-30 17:42 | NUR ---
Nursing Progress Note: Legal hold: LPS Client on involuntary status for GD Report received from nurse with use of SBAR: ELOY Richards Why are they here: [facility] LPS conservatorship for Schizophrenia. Pt had escaped from this unit 4-5 days earlier. Pt walked back into the emergency room this morning. Pt has wounds to bilateral thumbs that could be cold weather injury and to L foot. Pt has been off of his meds since leaving. Pt immediately requests to go to lower level of care, return to [place] or leave today. Pt here for medication stabilization and placement. Assessment What has happened this shift: RN received pt. asleep in bed at start of shift. Pt. took medications but dropped his water on the ground afterward. Pt. ate breakfast. 1:1 done at bedside, pt. reports he wants to leave and denies all psych symptoms. Pt. asking multiple times about getting different food. Pt. became agitated when another pt. wanted to use the phone and he swore at her and female staff member. Pt. was more calm in the afternoon. Pt. showered and changed his linens. Pt. refused his afternoon scheduled Seroquel XL, Lipitor, and Zoloft. S/I, H/I: Denies A/VH: Denies. Sleep: Patient slept 9.25 hours last night per NOC shift, and did not appear to nap during the day. ADL's: Requires prompting at times. Pt. showered today. Group attendance: NA Were meds taken: Yes. Any med S/E: Denies. None observed. Mental Status Exam Appearance: Pale, disheveled, appropriately dressed in green unit scrubs. Eye contact: WNL Behavior: Ritualistic, impulsive, labile Speech: Has some pauses and delays. In his speech. Mood: Agitated and frustrated in AM. Became more euthymic in afternoon. Affect: Flat with intense staring. Thought process: Thought blocking. Thought Content: Meeting needs. Perseveration on discharge. Cognition: A&O x2 Insight: Poor Judgment: Poor Interventions PRN's used: None Therapeutic interventions: Maintained a safe and supportive environment, ensured contract for safety, provided clear and simple instructions, provided direction and encouragement regarding performance of ADLs, monitored behaviors and maintained clear boundaries, provided positive reinforcement for positive behaviors and redirection for negative behaviors, and maintained Q15 min safety checks. Restraints/seclusion/emergency medication: NA Justification of Continued Inpatient Treatment: Pt. continues to require a safe and supportive environment while awaiting placement. Addendum: 09/30/21 at 1813 by Teodoro Puckett RN After pt. refused his Zoloft, Seroquel XL, and Lipitor RN received telephone order for IM Haldol 10, Benadryl 50, and Ativan 2mg. When RN went to give pt. this medication, pt. stated he wanted the orals instead. Pt. given PO Zoloft, Seroquel XL, and Lipitor.
--- NOTE | 2021-10-01 04:18 | NUR ---
Nursing Progress Note: Legal hold: LPS Client on involuntary status for GD Report received from nurse with use of SBAR: ELOY Berkowitz Why are they here: [facility] LPS conservatorship for Schizophrenia. Pt had escaped from this unit 4-5 days earlier. Pt walked back into the emergency room this morning. Pt has wounds to bilateral thumbs that could be cold weather injury and to L foot. Pt has been off of his meds since leaving. Pt immediately requests to go to lower level of care, return to [place] or leave today. Pt here for medication stabilization and placement. Assessment What has happened this shift: RN received pt. asleep in bed at start of shift. Pt. refused vital signs and assessment. Pt continue to sleep. During one rounding pt was awake and RN said hi to the pt and he turned to face the other direction. Pt asking for snacks. RN said no and pt said Dont say that. You asshole. Fuck you. Then he went to the PCT who got the pt 3 markers and a piece of paper. He dropped them on the ground and was made to pick them up. Pt paced the hallways and the dropped the markers again and stated Im confused when asked to pick them up. The markers were soon returned and the charge nurse told the patient no to snacks as well. Pt is currently in his room S/I, H/I: Denies A/VH: Denies. Sleep: will tally at the end of shift ADL's: Requires prompting at times. Group attendance: NA Were meds taken: Yes. Any med S/E: Denies. None observed. Mental Status Exam Appearance: Pale, disheveled, appropriately dressed in green unit scrubs. Eye contact: WNL Behavior: Ritualistic, impulsive, labile Speech: Has some pauses and delays. In his speech. Mood: Sleeping. 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 Thought process: Thought blocking. Thought Content: Wanting a snack. Cognition: A&O x2 Insight: Poor Judgment: Poor Interventions PRN's used: None Therapeutic interventions: Maintained a safe and supportive environment, ensured contract for safety, provided clear and simple instructions, provided direction and encouragement regarding performance of ADLs, monitored behaviors and maintained clear boundaries, provided positive reinforcement for positive behaviors and redirection for negative behaviors, and maintained Q15 min safety checks. Restraints/seclusion/emergency medication: NA Justification of Continued Inpatient Treatment: Pt. continues to require a safe and supportive environment while awaiting placement.
[2021-10-01 07:47] VITALS: BP 114/80
[2021-10-01] MEDS: naltrexone 50mg tablet PO SCH (08:15)
[2021-10-01] MEDS: NICOTINE POLACRILEX 2 MG LOZENGE BC PRN ×2 (10:02→21:18)
[2021-10-01] MEDS: atorvastatin 20mg tablet PO SCH (16:00)
[2021-10-01] MEDS: sertraline 50mg tablet PO SCH (16:00)
[2021-10-01] MEDS: QUETIAPINE 50 MG TAB.SR.24H PO SCH (16:00)
--- NOTE | 2021-10-01 18:05 | NUR ---
Nursing Progress Note: Legal hold: LPS Client on involuntary status for GD Report received from nurse with use of SBAR: Tere Chisholm RN Why are they here: [facility] on LPS conservatorship for Schizophrenia. Pt had escaped from this unit 4-5 days earlier. Pt walked back into the emergency room this morning. Pt has wounds to bilateral thumbs that could be cold weather injury and to L foot. Pt has been off of his meds since leaving. Pt immediately requests to go to lower level of care, return to [place] or leave today. Pt here for medication stabilization and placement. Assessment What has happened this shift: RN received pt. asleep in bed at start of shift. Pt. took medications and ate about half of his breakfast. Pt. had no attempts to open exit doors today. Pt. did swear at a staff member but then apologized. Pt. paced the halls and was doing gianna-fu moves in the in the hallway. Pt. states, It feels like a noodle in here. Pt. smiling. Pt given a borrito and oreo cookies for good behavior in the afternoon. Pt. weighed and pt. has gone from 59 to 56.6 kg. Pt. encouraged to eat more. S/I, H/I: Denies A/VH: Denies. Sleep: Patient slept 9.25 hours last night per NOC shift, and did not appear to nap during the day. ADL's: Requires prompting at times. Pt. showered today. Group attendance: NA Were meds taken: Yes. Any med S/E: Denies. None observed. Mental Status Exam Appearance: Pale, disheveled, appropriately dressed in green unit scrubs. Eye contact: WNL Behavior: Ritualistic, impulsive, labile Speech: Has some pauses and delays in his speech. Mood: Agitated and frustrated in AM. Became more euthymic in afternoon. Affect: Flat with intense staring. Thought process: Thought blocking. Thought Content: Meeting needs. Perseveration on discharge. Cognition: A&O x2 Insight: Poor Judgment: Poor Interventions PRN's used: None Therapeutic interventions: Maintained a safe and supportive environment, ensured contract for safety, provided clear and simple instructions, provided direction and encouragement regarding performance of ADLs, monitored behaviors and maintained clear boundaries, provided positive reinforcement for positive behaviors and redirection for negative behaviors, and maintained Q15 min safety checks. Restraints/seclusion/emergency medication: NA Justification of Continued Inpatient Treatment: Pt. continues to require a safe and supportive environment while awaiting placement.
--- NOTE | 2021-10-02 02:17 | NUR ---
Nursing Progress Note: Legal hold: LPS Client on involuntary status for GD Report received from nurse with use of SBAR: ELOY Berkowitz Why are they here: [facility] on LPS conservatorship for Schizophrenia. Pt had escaped from this unit 4-5 days earlier. Pt walked back into the emergency room this morning. Pt has wounds to bilateral thumbs that could be cold weather injury and to L foot. Pt has been off of his meds since leaving. Pt immediately requests to go to lower level of care, return to [place] or leave today. Pt here for medication stabilization and placement. Assessment What has happened this shift: Pt in room with door shut at shift change. Pt came to observation room before evening med pass and began mumbling to this nurse. When asking the pt to repeat his question he states, "nothing" and turns sharply to go to his room, stops and speaks again in a incoherent manner. Pt asked for snacks, brought pt oreo's and cranberry juice. Pt asked for water. Went to give pt water but noticed the trash on the ground from the snacks earlier. When asking the pt to pick them up he would drop them on the ground repeatedly. Water was put in pts pitcher with a straw due to pts inability to show this nurse that he could pick something up w/o dropping it. No evening meds for pt. Pt went to bed shortly after snack. S/I, H/I: Denies A/VH: Denies. Sleep: See sleep hours ADL's: Requires prompting at times. Group attendance: NA Were meds taken: Yes. Any med S/E: Denies. None observed. Mental Status Exam Appearance: Pale, disheveled, appropriately dressed in green unit scrubs. Eye contact: WNL Behavior: Ritualistic, impulsive, labile Speech: Has some pauses and delays in his speech. Mood:labile Affect: Flat with intense staring. Thought process: Thought blocking. Thought Content: Meeting needs. Perseveration on discharge. Cognition: A&O x2 Insight: Poor Judgment: Poor Interventions PRN's used: None Therapeutic interventions: Maintained a safe and supportive environment, ensured contract for safety, provided clear and simple instructions, provided direction and encouragement regarding performance of ADLs, monitored behaviors and maintained clear boundaries, provided positive reinforcement for positive behaviors and redirection for negative behaviors, and maintained Q15 min safety checks. Restraints/seclusion/emergency medication: NA Justification of Continued Inpatient Treatment: Pt. continues to require a safe and supportive environment while awaiting placement.
[2021-10-02] MEDS: NICOTINE POLACRILEX 2 MG LOZENGE BC PRN (03:09)
[2021-10-02] MEDS: naltrexone 50mg tablet PO SCH (08:51)
[2021-10-02 08:56] VITALS: BP 118/73
[2021-10-02] MEDS: sertraline 50mg tablet PO SCH (16:52)
[2021-10-02] MEDS: atorvastatin 20mg tablet PO SCH (16:53)
[2021-10-02] MEDS: QUETIAPINE 50 MG TAB.SR.24H PO SCH (16:53)
--- NOTE | 2021-10-02 17:08 | NUR ---
Nursing Progress Note: Jozef Legal hold: LPS Client on involuntary status for GD Report received from RN with use of SBAR Why are they here: Pt admitted to [facility] on LPS conservatorship for Schizophrenia. Pt had escaped from this unit. Pt here for medication stabilization and placement. What has happened this shift: Pt. received awake and standing in his room, he received his medications and 1:1 assessment completed at the bedside. Pt. refused SI, HI, A/VH, pt. had little to say, and had no response re admission. Pt. ate his meals in the dining room with cohorts, but remains socially isolated, and doesnt engage in watching tv. Pt. continues to eat poorly and often takes only a few bites, he received a shower and presented with aggressive behavior toward staff while we attempted to have him exit after an hour in shower. Pt. spent remained of shift pacing with intermittent rituals of hopping and standing still on certain squares in the bernard. Assessment S/I, H/I: Denies A/VH: Denies. Sleep: one nap ADL's: Requires prompting at times. Pt. showered today. Group attendance: NA Were meds taken: Yes. Any med S/E: Denies. None observed. Mental Status Exam Appearance: Pale, disheveled, appropriately dressed in green unit scrubs. Eye contact: Intense Behavior: Ritualistic, impulsive Speech: Fragmented, minimal Mood: Agitated at times and cooperative Affect: Flat Thought process: Thought blocking. Thought Content: Meeting needs Cognition: A&O x2 Insight: Poor Judgment: Poor Interventions PRN's used: Nicotine lozenge Therapeutic interventions: Maintained a safe and supportive environment, ensured contract for safety, provided clear and simple instructions, provided direction and encouragement regarding performance of ADLs, monitored behaviors and maintained clear boundaries, provided positive reinforcement for positive behaviors and redirection for negative behaviors, and maintained Q15 min safety checks. Restraints/seclusion/emergency medication: NA Justification of Continued Inpatient Treatment: Pt. continues to require a safe and supportive environment while awaiting placement.
[2021-10-02 19:55] VITALS: BP 114/76
--- NOTE | 2021-10-03 02:06 | NUR ---
Nursing Progress Note: Jozef Legal hold: LPS Client on involuntary status for GD Report received from Brian RN with use of SBAR Why are they here: Pt admitted to [facility] on LPS conservatorship for Schizophrenia. Pt had escaped from this unit. Pt here for medication stabilization and placement. What has happened this shift: Pt in room at shift change. Pt came out and asked for a snack. Pt was brought a snack. Pt denied A/V H, or to respond to this nurse about MH symptoms. Pt came out to ask for snacks a couple times but went back to room. pt did not have evening meds. Pt went to sleep w/o complications. Assessment S/I, H/I: Denies A/VH: Denies. Sleep: See sleep hours ADL's: Requires prompting at times. Group attendance: NA Were meds taken: Yes. Any med S/E: Denies. None observed. Mental Status Exam Appearance: Pale, disheveled, appropriately dressed in green unit scrubs. Eye contact: Intense Behavior: Ritualistic, impulsive Speech: Fragmented, minimal Mood: Agitated at times and cooperative Affect: Flat Thought process: Thought blocking. Thought Content: Meeting needs Cognition: A&O x2 Insight: Poor Judgment: Poor Interventions PRN's used: none Therapeutic interventions: Maintained a safe and supportive environment, ensured contract for safety, provided clear and simple instructions, provided direction and encouragement regarding performance of ADLs, monitored behaviors and maintained clear boundaries, provided positive reinforcement for positive behaviors and redirection for negative behaviors, and maintained Q15 min safety checks. Restraints/seclusion/emergency medication: NA Justification of Continued Inpatient Treatment: Pt. continues to require a safe and supportive environment while awaiting placement.
[2021-10-03] MEDS: naltrexone 50mg tablet PO SCH (08:22)
--- NOTE | 2021-10-03 08:32 | NUR ---
Reassessment: Pt PO intake ~42% of regular meals and receiving peanut butter and jelly sandwiches BIDLD and milkshakes TIDWM, improving from previous PO intake though pt still refusing some meals. Noted continued regular snack intake though continues intentionally throwing food and beverages on the floor per PA documentation, likely meeting estimated nutritional needs. Despite poor meal intake patient's wt continues to remain relatively stable w/ admit, w/ wt loss of 1.6 kg over 10 weeks. LBM 10/01, receiving bowel care PRN. Will continue to follow closely. Recommendations: 1. Continue regular diet as tolerated 2. Peanut butter and jelly sandwich BIDLD; milkshake TIDWM 3. Encourage PO intake of meals/snacks 4. If PO remains poor, initiate nutrition support if MD agreeable and within POC 5. Routine bowel care 6. Weekly scaled weights Addendum: 10/03/21 at [address] I have reviewed assessment by recruitment internship Addendum: 10/03/21 at 0834 by Osmani Norton - Water Valve Mechanic RD Amended: Links added.
[2021-10-03 08:54] VITALS: BP 115/82
[2021-10-03] MEDS: NICOTINE POLACRILEX 2 MG LOZENGE BC PRN ×2 (09:28→16:36)
[2021-10-03] MEDS: LORazepam 1 MG tablet PO PRN (13:41)
[2021-10-03] MEDS: atorvastatin 20mg tablet PO SCH (16:36)
[2021-10-03] MEDS: QUETIAPINE 50 MG TAB.SR.24H PO SCH (16:36)
[2021-10-03] MEDS: sertraline 50mg tablet PO SCH (16:36)
--- NOTE | 2021-10-03 16:50 | NUR ---
Nursing Progress Note: Jozef Legal hold: LPS Client on involuntary status for GD Report received from RN with use of SBAR Why are they here: Pt admitted to [facility] on LPS conservatorship for Schizophrenia. Pt had escaped from this unit. Pt here for medication stabilization and placement. What has happened this shift: Pt. received awake and sitting in his room, he received his medications and 1:1 assessment completed at the bedside. Pt. refused SI, HI, A/VH, pt. refused to discuss anything further. Pt. presents as disorganized and has poverty of thought. Pt. ate his meals in the dining room with cohorts, and continues to socially isolate from others. Pt. approached senior underwriter asking can I have some dope I advised pt. drugs are harmful and we are here to take care of him, and pt. skipped down the bernard. Later in the afternoon pt. approached senior underwriter stating can I [place], I have symp..toms.. assessing pt. he presents with s/sx of disorganization and anxiety; PRN Ativan given and pt. then dropped his water cup on the floor. Assessment S/I, H/I: Denies A/VH: Denies. Sleep: One nap ADL's: Requires prompting Group attendance: No Were meds taken: Yes. Any med S/E: Denies. None observed. Mental Status Exam Appearance: Pale, disheveled, appropriately dressed in green unit scrubs. Eye contact: Intense Behavior: Ritualistic, impulsive Speech: Fragmented, minimal Mood: Agitated at times and cooperative Affect: Flat Thought process: Thought blocking. Thought Content: Meeting needs Cognition: A&O x2 Insight: Poor Judgment: Poor Interventions PRN's used: Nicotine lozenge, Ativan Therapeutic interventions: Maintained a safe and supportive environment, ensured contract for safety, provided clear and simple instructions, provided direction and encouragement regarding performance of ADLs, monitored behaviors and maintained clear boundaries, provided positive reinforcement for positive behaviors and redirection for negative behaviors, and maintained Q15 min safety checks. Restraints/seclusion/emergency medication: NA Justification of Continued Inpatient Treatment: Pt. continues to require a safe and supportive environment while awaiting placement.
[2021-10-03 19:11] VITALS: BP 118/87
--- NOTE | 2021-10-04 00:59 | NUR ---
Nursing Progress Note: Legal hold: LPS Client on involuntary status for GD Report received from ELOY Garrett with use of SBAR Why are they here: Pt admitted to [facility] on LPS conservatorship for Schizophrenia. Pt had escaped from this unit. Pt here for medication stabilization and placement. What has happened this shift: Pt self isolated at beginning of shift. Would come out periodically and ask questions to staff. Pt ssked for snack after snack time. Pt had a hard time picking out what chips he wanted. Pt took snacks and juice and suhail to room. Upon checking on pt his juice box was on the floor and broken chips on the floor. Pt was asked to worm picker juice box where he would repeatedly worm picker juice box and drop it over and over again. Patient asked if there was any coke. After explaining to the pt that we do not have coke here, pt skipped and jumped in hallway until he went into room. Pt does not answer any questions about MH. Pt does not have evening meds. Pt went to bed shortly after snack time. Assessment S/I, H/I: Denies A/VH: Denies. Sleep: See sleep hours ADL's: Requires prompting Group attendance: No group in the evenings Were meds taken: Yes. Any med S/E: Denies. None observed. Mental Status Exam Appearance: Pale, disheveled, appropriately dressed in green unit scrubs. Eye contact: Intense Behavior: Ritualistic, impulsive Speech: Fragmented, minimal Mood: Agitated at times and cooperative Affect: Flat Thought process: Thought blocking. Thought Content: Meeting needs Cognition: A&O x2 Insight: Poor Judgment: Poor Interventions PRN's used: none Therapeutic interventions: Maintained a safe and supportive environment, ensured contract for safety, provided clear and simple instructions, provided direction and encouragement regarding performance of ADLs, monitored behaviors and maintained clear boundaries, provided positive reinforcement for positive behaviors and redirection for negative behaviors, and maintained Q15 min safety checks. Restraints/seclusion/emergency medication: NA Justification of Continued Inpatient Treatment: Pt. continues to require a safe and supportive environment while awaiting placement.
[2021-10-04 07:59] VITALS: BP 114/68
[2021-10-04] MEDS: naltrexone 50mg tablet PO SCH (08:28)
[2021-10-04] MEDS: NICOTINE POLACRILEX 2 MG LOZENGE BC PRN (09:46)
[2021-10-04] MEDS: atorvastatin 20mg tablet PO SCH (16:23)
[2021-10-04] MEDS: sertraline 50mg tablet PO SCH (16:23)
[2021-10-04] MEDS: QUETIAPINE 50 MG TAB.SR.24H PO SCH (16:24)
[2021-10-04] MEDS: LORazepam 1 MG tablet PO PRN (16:35)
--- NOTE | 2021-10-04 17:54 | NUR ---
Nursing Progress Note: Jozef Legal hold: [facility] Client on involuntary status for GD Report received from ELOY Alexis with use of SBAR Why are they here: Pt admitted to [facility] on LPS conservatorship for Schizophrenia. Pt had escaped from this unit. Pt here for medication stabilization and placement. What has happened this shift: Patient observed sleeping in bed at change of shift. He joined in the community room for breakfast with peers. He was compliant with scheduled medication, requiring some prompting. 1:1 assessment completed, lungs CTA. Patient was observed walking around the unit throughout the morning. He continues to present as impulsive, guarded, and labile, yet cooperative with care. Patient was observed opening and closing the door to his room repeatedly despite redirection. He denies SI/HI, AH or VH. Does not appear to be responding to internal stimuli. Patient observed making repetitive/ritualistic movements throughout the shift. He was noted dropping his tray in the dining room several times after being directed to put tray in designated area. He was directed to clean up items off the ground which he did with assistance. Patient was observed participating in group therapy for a short period of time before retreating back to his room. He was receptive to scheduled medication at 1600. Patient was noted mumbling nonsensical statements periodically throughout the day. He continues to present with fragmented speech. Patient endorsed feelings of anxiety and was given PRN Ativan at 1635. He was active on the unit the majority of the day and joined in the community room for snack and meal times. Assessment S/I, H/I: Denies A/VH: Denies. Does not appear to be responding to IS. Sleep: Patient slept 4.5 hours last night per NOC shift. Napped on and off for 2 hours today. ADL's: Requires prompting Group attendance: Yes-partial Were meds taken: Yes Any med S/E: Denies. None observed. Mental Status Exam Appearance: Pale, disheveled, appropriately dressed in green unit scrubs. Eye contact: Intense Behavior: Ritualistic, impulsive Speech: Fragmented, minimal Mood: Agitated at times and cooperative Affect: Flat Thought process: Thought blocking. Thought Content: Meeting needs Cognition: A&O x2 Insight: Poor Judgment: Poor Interventions PRN's used: Ativan, Nicotine Lozenge Therapeutic interventions: Maintained a safe and supportive environment, ensured contract for safety, provided clear and simple instructions, provided direction and encouragement regarding performance of ADLs, monitored behaviors and maintained clear boundaries, provided positive reinforcement for positive behaviors and redirection for negative behaviors, and maintained Q15 min safety checks. Restraints/seclusion/emergency medication: NA Justification of Continued Inpatient Treatment: Pt. continues to require a safe and supportive environment while awaiting placement.
[2021-10-04 19:18] VITALS: BP 112/84
--- NOTE | 2021-10-05 00:56 | NUR ---
Nursing Progress Note: Jozef Legal hold: LPS Client on involuntary status for GD Report received from ELOY Garrett with use of SBAR Why are they here: Pt admitted to [facility] on LPS conservatorship for Schizophrenia. Pt had escaped from this unit. Pt here for medication stabilization and placement. What has happened this shift: Pt was in hallway at shift change. Pt said hi when spoken to. Pt was receptive to communicate, when asked how his had been going, pt stated "ehhh", OK" pt denies A/V H, or S/I H/I. Pt was trying to say something but looked as if he couldn't remember, shrugged his shoulders and skipped away down the bernard. Pt has no evening meds. Brought pt a snack, pt went to bed shortly after. Assessment S/I, H/I: Denies A/VH: Denies. Does not appear to be responding to IS. Sleep: See sleep hours ADL's: Requires prompting Group attendance:No group in the evenings Were meds taken: Yes Any med S/E: Denies. None observed. Mental Status Exam Appearance: Pale, disheveled, appropriately dressed in green unit scrubs. Eye contact: Intense Behavior: Ritualistic, impulsive Speech: Fragmented, minimal Mood: Agitated at times and cooperative Affect: Flat Thought process: Thought blocking. Thought Content: Meeting needs Cognition: A&O x2 Insight: Poor Judgment: Poor Interventions PRN's used: None Therapeutic interventions: Maintained a safe and supportive environment, ensured contract for safety, provided clear and simple instructions, provided direction and encouragement regarding performance of ADLs, monitored behaviors and maintained clear boundaries, provided positive reinforcement for positive behaviors and redirection for negative behaviors, and maintained Q15 min safety checks. Restraints/seclusion/emergency medication: NA Justification of Continued Inpatient Treatment: Pt. continues to require a safe and supportive environment while awaiting placement.
[2021-10-05 08:00] VITALS: BP 110/79
[2021-10-05] MEDS: naltrexone 50mg tablet PO SCH (08:45)
[2021-10-05] MEDS: atorvastatin 20mg tablet PO SCH (16:57)
[2021-10-05] MEDS: sertraline 50mg tablet PO SCH (16:57)
[2021-10-05] MEDS: QUETIAPINE 50 MG TAB.SR.24H PO SCH (16:57)
--- NOTE | 2021-10-05 17:15 | NUR ---
Nursing Progress Note: Jozef Legal hold: [facility] Client on involuntary status for GD Report received from ELOY Alexis with use of SBAR Why are they here: Pt admitted to [place] for Behavioral health on LPS conservatorship for Schizophrenia. Pt had escaped from this unit. Pt here for medication stabilization and placement. What has happened this shift: Patient was asleep at change of shift and up for breakfast. Patient took his medication but had difficulty swallowing the 1600 meds due to the number of pills being crushed. Patient was good for the most part today. Patient observed doing his normal repetitive motions and smiling and playing around with staff. No problems today. Assessment S/I, H/I: Denies A/VH: Denies. Does not appear to be responding to IS. Sleep: No naps today ADL's: Requires prompting Group attendance: Yes-partial Were meds taken: Yes Any med S/E: Denies. None observed. Mental Status Exam Appearance: Pale, greasy hair, appropriately dressed in green unit scrubs. Eye contact: Good Behavior: Repetitive motions, walking up and down the halls Speech: Fragmented, minimal Mood: Playful Affect: Flat and then smiles with his teeth showing Thought process: Thought blocking. Thought Content: Meeting needs Cognition: A&O x2 Insight: Poor Judgment: Poor Interventions PRN's used: None Therapeutic interventions: Maintained a safe and supportive environment, ensured contract for safety, provided clear and simple instructions, provided direction and encouragement regarding performance of ADLs, monitored behaviors and maintained clear boundaries, provided positive reinforcement for positive behaviors and redirection for negative behaviors, and maintained Q15 min safety checks. Restraints/seclusion/emergency medication: NA Justification of Continued Inpatient Treatment: Pt. continues to require a safe and supportive environment while awaiting placement.
[2021-10-05] MEDS: temazepam 15mg capsule PO PRN (20:38)
--- NOTE | 2021-10-05 22:22 | NUR ---
Nursing Progress Note: Jozef Legal hold: LPS Client on involuntary status for GD Report received from ELOY Garrett with use of SBAR Why are they here: Pt admitted to [place] for Behavioral health on LPS conservatorship for Schizophrenia. Pt had escaped from this unit. Pt here for medication stabilization and placement. What has happened this shift: Pt was sleeping in his room at change of shift. He woke for a snack and sat in the group room eating. Pt was smiling and said he was listening to the music on the tv. Pt states he is "good". Pt assisted tech w/cleaning up his mess and took prn for sleep before going back to bed. Assessment S/I, H/I: Denies A/VH: Denies. Sleep: see sleep hours ADL's: Requires prompting Group attendance: no evening groups Were meds taken: Yes Any med S/E: Denies. None observed. Mental Status Exam Appearance: Pale, greasy hair, appropriately dressed in green unit scrubs. Eye contact: Good Behavior: Repetitive motions, Speech: Fragmented, minimal Mood: euthymic Affect: Flat Thought process: Thought blocking Thought Content: Meeting needs Cognition: A&O x2 Insight: Poor Judgment: Poor Interventions PRN's used:restoril Therapeutic interventions: Maintained a safe and supportive environment, ensured contract for safety, provided clear and simple instructions, provided direction and encouragement regarding performance of ADLs, monitored behaviors and maintained clear boundaries, provided positive reinforcement for positive behaviors and redirection for negative behaviors, and maintained Q15 min safety checks. Restraints/seclusion/emergency medication: NA Justification of Continued Inpatient Treatment: Pt. continues to require a safe and supportive environment while awaiting placement.
[2021-10-06] MEDS: naltrexone 50mg tablet PO SCH (08:13)
--- NOTE | 2021-10-06 09:22 | NUR ---
Pt. attended group today. The topic today was identifying the triggers, signs and symptoms of an upcoming episode/event so that Pts. can learn to apply coping skills before they get to a bad place with their symptoms (6-7 or more on a scale of 0-10). We reviewed a safety plan sheet with appropriate coping skills. Pt. engaged in the group today minimally. He mostly walked in and out of the room and walked around the room. He had to be asked a few times by this [employer] Blank Handler to sit down as he would come to close to people in the group. He usually would accept the redirection and settle down. He declined sharing in the group any of his thoughts about the topic. Aleksandra Fuentes LCSW Addendum: 10/06/21 at 0947 by Aleksandra Fuentes This note should be dated 10/05/2021.
--- NOTE | 2021-10-06 11:13 | NUR ---
Reassessment: Pt PO intake continues to be poor, ~26% of regular meals and receiving peanut butter and jelly sandwiches BIDLD and milkshakes TIDWM, still refusing some meals though behavior of dropping food on the floor seems to have lessened per firmware architect. Noted continued regular snack intake though unable to fully determine nutrition status through documentation. Despite poor meal intake patient's wt continues to remain relatively stable since admit. LBM 10/02, sales management intern d/w RN possible pt need for bowel care, RN stated they would give PRN bowel care. Will continue to follow closely. Recommendations: 1. Continue regular diet as tolerated 2. Peanut butter and jelly sandwich BIDLD; milkshake TIDWM 3. Encourage PO intake of meals/snacks 4. If PO remains poor, initiate nutrition support if MD agreeable and within POC 5. Routine bowel care 6. Weekly scaled weights Addendum: 10/06/21 at [address] Amended: Links added. Addendum: 10/06/21 at [address] CALI has reviewed and approves of above note.
--- NOTE | 2021-10-06 12:26 | NUR ---
PLACEMENT UPDATE Client has been TENTATIVELY accepted to [facility]. Clients packet is in [facility] queue at [facility], [facility], [facility], and [facility] Client has been declined at [facility] and [facility]. JAYCEE Aiken
[2021-10-06] MEDS: atorvastatin 20mg tablet PO SCH (16:25)
[2021-10-06] MEDS: sertraline 50mg tablet PO SCH (16:25)
[2021-10-06] MEDS: magnesium hydroxide 30ml (MOM) UD suspension PO PRN (16:25)
[2021-10-06] MEDS: QUETIAPINE 50 MG TAB.SR.24H PO SCH (16:25)
--- NOTE | 2021-10-06 17:39 | NUR ---
Nursing Progress Note: Jozef Legal hold: [facility] Client on involuntary status for GD Report received from ELOY Alexis with use of SBAR Why are they here: Pt admitted to [place] for Behavioral health on LPS conservatorship for Schizophrenia. Pt had escaped from this unit. Pt here for medication stabilization and placement. What has happened this shift: Patient observed quietly walking around the unit at change of shift. He refused scheduled vital signs this morning despite encouragement and education. Patient joined in the community room for breakfast. Patient was receptive to 1:1 assessment. He was observed walking through the unit with a blank stare on his face. Patient does not interact with other peers on the unit. He is able to make his needs known. He was compliant with scheduled medication, requiring some prompting. Patient continues to present as impulsive, guarded, and labile, yet cooperative with care. He denies SI/HI, AH or VH. Does not appear to be responding to internal stimuli. Patient observed making repetitive/ritualistic movements throughout the shift. He was observed opening and closing the door to his room repeatedly, requiring frequent redirection. Patient was noted mumbling nonsensical statements periodically throughout the day. He continues to present with fragmented speech. He was active on the unit the majority of the day and joined in the community room for snack and meal times. Assessment S/I, H/I: Denies A/VH: Denies. Does not appear to be responding to IS. Sleep: Pt slept 7 hours last night per NOC shift, no naps noted on this shift ADL's: Requires prompting Group attendance: No Were meds taken: Yes Any med S/E: Denies. None observed. Mental Status Exam Appearance: Pale, greasy hair, appropriately dressed in green unit scrubs. Eye contact: Good Behavior: Repetitive motions, walking up and down the halls Speech: Fragmented, minimal Mood: Playful Affect: Flat and then smiles with his teeth showing Thought process: Thought blocking. Thought Content: Meeting needs Cognition: A&O x2 Insight: Poor Judgment: Poor Interventions PRN's used: Milk of Magnesia Therapeutic interventions: Maintained a safe and supportive environment, ensured contract for safety, provided clear and simple instructions, provided direction and encouragement regarding performance of ADLs, monitored behaviors and maintained clear boundaries, provided positive reinforcement for positive behaviors and redirection for negative behaviors, and maintained Q15 min safety checks. Restraints/seclusion/emergency medication: NA Justification of Continued Inpatient Treatment: Pt. continues to require a safe and supportive environment while awaiting placement.
[2021-10-06] MEDS: temazepam 15mg capsule PO PRN (20:10)
--- NOTE | 2021-10-07 01:43 | NUR ---
Nursing Progress Note: Jozef Legal hold: [facility] Client on involuntary status for GD Report received from ELOY Berkowitz with use of SBAR Why are they here: Pt admitted to [place] for Behavioral health on LPS conservatorship for Schizophrenia. Pt had escaped from this unit. Pt here for medication stabilization and placement. What has happened this shift: Patient was observed eating dinner at beginning of shift. Pt was staring off into the distance so only part of his food ended up in his mouth. The rest ended up in his lap. Pt had to be reminded to pay attention to his food. Patient was found later standing in his room in the dark following is repetitive habits. Patient was giving prn Restoril to help him to sleep. Pt took medication and went to bed. Assessment S/I, H/I: Denies A/VH: Denies. Does not appear to be responding to IS. Sleep: See sleep assessment ADL's: Requires prompting Group attendance: No Were meds taken: Yes Any med S/E: Denies. None observed. Mental Status Exam Appearance: Pale, greasy hair, appropriately dressed in green unit scrubs. Eye contact: Good Behavior: Repetitive motions, walking up and down the halls Speech: Fragmented, minimal Mood: Playful Affect: Flat and then smiles with his teeth showing Thought process: Thought blocking. Thought Content: Meeting needs Cognition: A&O x2 Insight: Poor Judgment: Poor Interventions PRN's used: Restoril Therapeutic interventions: Maintained a safe and supportive environment, ensured contract for safety, provided clear and simple instructions, provided direction and encouragement regarding performance of ADLs, monitored behaviors and maintained clear boundaries, provided positive reinforcement for positive behaviors and redirection for negative behaviors, and maintained Q15 min safety checks. Restraints/seclusion/emergency medication: NA Justification of Continued Inpatient Treatment: Pt. continues to require a safe and supportive environment while awaiting placement.
[2021-10-07] MEDS: naltrexone 50mg tablet PO SCH (07:02)
[2021-10-07] MEDS: NICOTINE POLACRILEX 2 MG LOZENGE BC PRN ×2 (07:06→14:33)
[2021-10-07 08:00] VITALS: BP 132/83
--- NOTE | 2021-10-07 10:20 | NUR ---
PLACEMENT NOTES Sent updated notes (09/22/21-10/06/21) to [facility] office at their request. JAYCEE Aiken
[2021-10-07] MEDS: atorvastatin 20mg tablet PO SCH (16:22)
[2021-10-07] MEDS: sertraline 50mg tablet PO SCH (16:22)
[2021-10-07] MEDS: QUETIAPINE 50 MG TAB.SR.24H PO SCH (16:23)
--- NOTE | 2021-10-07 17:31 | NUR ---
Nursing Progress Note: Legal hold: LPS Client on involuntary status for GD Report received from SREEDHAR Khan with use of SBAR. Why they are here: Pt admitted to [place] for Behavioral health on LPS conservatorship for Schizophrenia. Pt had escaped from this unit. Pt here for medication stabilization and placement. What has happened this shift: Patient is awake in his room at the start of the shift. Cooperative with 1:1 assessment and medication. Speech is very limited/ fragmented. Does not make full sentences but is able to make his needs known with extra time. In the afternoon he is hesitant to take medications and requires encouragement. Assessment S/I, H/I: Denies A/VH: Denies Sleep: None noted this shift. ADL's: Independent Group attendance: No Were meds taken: Yes Any med S/E: None observed or reported. Mental Status Exam Appearance: Young thin man, pale, greasy hair, appropriately dressed in green unit scrubs. Eye contact: Good Behavior: Repetitive motions, cooperative Speech: Fragmented, minimal Mood: Euthymic Affect: Flat Thought process: Thought blocking. Thought Content: Meeting needs, discharging. Cognition: A&O x2 to self and place Insight: Poor Judgment: Poor Intervention PRN's used: Nicotine lozenge Therapeutic interventions: Maintained a safe and supportive environment, ensured contract for safety, provided clear and simple instructions, provided direction and encouragement regarding performance of ADLs, monitored behaviors and maintained clear boundaries, provided positive reinforcement for positive behaviors and redirection for negative behaviors, and maintained Q15 min safety checks. Restraints/seclusion/emergency medication: NA Justification of Continued Inpatient Treatment: Pt. continues to require a safe and supportive environment while awaiting placement.
[2021-10-07 19:00] VITALS: BP 112/78
--- NOTE | 2021-10-08 02:45 | NUR ---
Nursing Progress Note: Jozef Legal hold: LPS Client on involuntary status for GD Report received from curb supervisor with use of SBAR. Why they are here: Pt admitted to [place] for Behavioral health on LPS conservatorship for Schizophrenia. Pt had escaped from this unit. Pt here for medication stabilization and placement. What has happened this shift: Patient is awake in his room at the start of the shift, opening and shutting his door repetitively during report. Cooperative with 1:1 assessment. Speech is very limited/ fragmented and slow, as well as actions. Pt does not make full sentences but is able to make his needs known when allowed extra time. No medications this shift and PRNs were not needed. Assessment S/I, H/I: Denies A/VH: Denies Sleep: Yes ADL's: Independent Group attendance: No Were meds taken: none this noc shift. Any med S/E: None observed or reported. Mental Status Exam Appearance: Dressed in green unit scrubs. Eye contact: slow, poor Behavior: Repetitive motions, cooperative Speech: Fragmented, minimal Mood: Euthymic Affect: Flat Thought process: Thought blocking. Thought Content: Meeting needs, discharging. Cognition: A&O x2 to self and place Insight: Poor Judgment: Poor Intervention PRN's used: None needed Therapeutic interventions: Maintained a safe and supportive environment, ensured contract for safety, provided clear and simple instructions, provided direction and encouragement regarding performance of ADLs, monitored behaviors and maintained clear boundaries, provided positive reinforcement for positive behaviors and redirection for negative behaviors, and maintained Q15 min safety checks. Restraints/seclusion/emergency medication: NA Justification of Continued Inpatient Treatment: Pt. continues to require a safe and supportive environment while awaiting placement.
[2021-10-08] MEDS: naltrexone 50mg tablet PO SCH (07:27)
[2021-10-08 08:00] VITALS: BP 118/80
[2021-10-08] MEDS: NICOTINE POLACRILEX 2 MG LOZENGE BC PRN (14:21)
--- NOTE | 2021-10-08 16:46 | NUR ---
Nursing Progress Note: Legal hold: LPS Client on involuntary status for GD Report received from SREEDHAR Pierce with use of SBAR. Why they are here: Pt admitted to [place] for Behavioral health on LPS conservatorship for Schizophrenia. Pt had escaped from this unit. Pt here for medication stabilization and placement. What has happened this shift: Patient is resting quietly in bed at the start of the shift. Cooperative with 1:1 assessment. Requires encouragement to take medications. Tries to refuse them stating, Im good. Eats breakfast in the community room and interacts appropriately although very little with peers. Speech is fragmented. Answers some yes/ no questions but will change his answer several times or sometimes not respond. Assessment S/I, H/I: Denies A/VH: Denies Sleep: None noted this shift. ADL's: Independent Group attendance: No Were meds taken: Yes Any med S/E: None observed or reported. Mental Status Exam Appearance: Young thin man, pale, greasy hair, appropriately dressed in green unit scrubs. Eye contact: Good Behavior: Ritualistic, Repetitive motions Speech: Fragmented, minimal Mood: Euthymic Affect: Flat Thought process: Thought blocking. Thought Content: Meeting needs, discharging. Cognition: A&O x2 to self and place Insight: Poor Judgment: Poor Intervention PRN's used: nicotine lozenge Therapeutic interventions: Maintained a safe and supportive environment, ensured contract for safety, provided clear and simple instructions, provided direction and encouragement regarding performance of ADLs, monitored behaviors and maintained clear boundaries, provided positive reinforcement for positive behaviors and redirection for negative behaviors, and maintained Q15 min safety checks. Restraints/seclusion/emergency medication: NA Justification of Continued Inpatient Treatment: Pt. continues to require a safe and supportive environment while awaiting placement.
[2021-10-08] MEDS: sertraline 50mg tablet PO SCH (16:55)
[2021-10-08] MEDS: atorvastatin 20mg tablet PO SCH (16:55)
[2021-10-08] MEDS: QUETIAPINE 50 MG TAB.SR.24H PO SCH (16:55)
[2021-10-08 19:00] VITALS: BP 121/81
[2021-10-08] MEDS ORDERED: mirtazapine 15mg tablet PO SCH (21:00)
--- NOTE | 2021-10-09 00:32 | NUR ---
Nursing Progress Note: Legal hold: LPS Client on involuntary status for GD Report received from ELOY Berkowitz with use of SBAR. Why they are here: Pt admitted to [place] for Behavioral health on LPS conservatorship for Schizophrenia. Pt had escaped from this unit. Pt here for medication stabilization and placement. What has happened this shift: Patient isolated in his room following shift change. Initially the patient was laying awake, supine in bed. The patient is oriented to person and place. Unknown about time or place. The patient has a pale and gaunt look. His face has a sunken look. The patient did not eat dinner. He would not partake of snacks. Patient drand a half cup of water tonight and was medication compliant. Later in evening the patient did get out of bed for a short time. Patient exhibited repetitive and jerky type movements. His gaze was intense at times. The patient recognized this writers humor and did laugh hard once. Patient was encouraged to eat on multiple occasions but he continues to decline without explanation. Assessment S/I, H/I: Denies. A/VH: Denies. Sleep: None noted this shift. ADL's: Independent, requires prompting. Group attendance: No group on nights. Were meds taken: Yes, medication compliant. Any med S/E: None observed or reported. Mental Status Exam Appearance: See above note. Eye contact: Direct, intense at times. Behavior: Isolative, resistant to eating. Speech: Fragmented, minimal, indecisive. Mood: Euthymic. Affect: Flat. Thought process: Thought blocking. Thought Content: Does not explain. Cognition: Oriented to person and place, not time or situation. Insight: Poor. Judgment: Poor. Intervention PRN's used: None. Therapeutic interventions: Maintained a safe and supportive environment, ensured contract for safety, provided clear and simple instructions, provided direction and encouragement regarding performance of ADLs, monitored behaviors and maintained clear boundaries, provided positive reinforcement for positive behaviors and redirection for negative behaviors, and maintained Q15 min safety checks. Restraints/seclusion/emergency medication: NA Justification of Continued Inpatient Treatment: Pt. continues to require a safe and supportive environment while awaiting placement.
[2021-10-09] MEDS: NICOTINE POLACRILEX 2 MG LOZENGE BC PRN (07:10)
--- NOTE | 2021-10-09 07:45 | NUR ---
Pt up right after the beginning of the shift. Pt's eyes looked like pink eye they are both blood shot red. He appears to have lost more weight; current wt is 55.9 kg. Pt continues to loose wt. the past 2 weeks. Pt admits to being depressed.
[2021-10-09 08:00] VITALS: BP 123/88
[2021-10-09] MEDS: naltrexone 50mg tablet PO SCH (09:14)
[2021-10-09] MEDS ORDERED: megestrol acetate 400mg/10ml UD oral suspension PO ONE (12:00)
[2021-10-09 12:56] LABS: BASOPHILS % (AUTO) 0.4 % (0-1); EOSINOPHILS % (AUTO) 0.2 % (0-6); HEMATOCRIT 42.9 % (42.0-52.0); HEMOGLOBIN 14.5 g/dl (14.0-17.9); LYMPHOCYTES # (AUTO) 1.6 X10'3 (1.1-4.8); LYMPHOCYTES % (AUTO) 30.8 % (21-51); MEAN CORPUSCULAR HGB CONC 33.8 g/dL (33.0-36.5); MEAN CORPUSCULAR VOLUME 88.7 FL (78-98); MEAN PLATELET VOLUME 9.6 FL (7.4-10.4); MONOCYTES # (AUTO) 0.3 X10'3 (0-0.9); MONOCYTES % (AUTO) 6.5 % (2-12); NEUTROPHILS # (AUTO) 3.2 X10'3 (1.8-7.7); NEUTROPHILS % (AUTO) 62.1 % (42-75); PLATELET COUNT 186 X10'3 (140-440); RED BLOOD COUNT 4.84 X10'6 (4.70-6.10); RED CELL DISTRIBUTION WIDTH 13.3 % (11.5-14.5); WHITE BLOOD COUNT 5.2 X10'3 (4.5-11.0)
[2021-10-09 13:27] LABS: ALANINE AMINOTRANSFERASE 15 U/L (12-78); ALBUMIN 4.3 G/DL (3.4-5.0); ALBUMIN/GLOBULIN RATIO 1.4 (1.1-1.5); ALKALINE PHOSPHATASE 92 IU/L (46-116); ASPARTATE AMINO TRANSFERASE 18 U/L (10-37); BILIRUBIN,TOTAL 0.4 MG/DL (0.1-1.0); BLOOD UREA NITROGEN 13 MG/DL (7-18); BUN/CREATININE RATIO 15.9 (5.4-32.0); CALCIUM 9.1 MG/DL (8.5-10.1); CREATININE 0.82 MG/DL (0.60-1.10); GLUCOSE 90 MG/DL (70-104); TOTAL CARBON DIOXIDE 24.6 MMOL/L (24-32); TOTAL PROTEIN 7.3 G/DL (6.4-8.2); eGFR > 90 ML/MIN
[2021-10-09 14:49] LABS: FERRITIN 191 NG/ML (26-388)
--- NOTE | 2021-10-09 15:19 | NUR ---
Nursing Progress Note: Legal hold: LPS Client on involuntary status for GD Report received from SREEDHAR Carlson with use of SBAR. Why they are here: Pt admitted to [place] for Behavioral health on LPS conservatorship for Schizophrenia. Pt had escaped from this unit. Pt here for medication stabilization and placement. What has happened this shift: Pt mostly in his room, standing and staring at the wall or messing with things on his shelves. Pt did not eat snack and ate about 25% of his lunch. Pt was given megase to hopefully increase his appetite. Pt continues to have OCD type mannerisms: repetitive actions. Assessment S/I, H/I: Denies A/VH: Denies Sleep: None noted this shift. ADL's: Independent Group attendance: No Were meds taken: Yes Any med S/E: None observed or reported. Mental Status Exam Appearance: Young thin man, pale, greasy hair, appropriately dressed in green unit scrubs. Eye contact: Good Behavior: Ritualistic, Repetitive motions Speech: Fragmented, minimal Mood: Euthymic Affect: Flat Thought process: Thought blocking. Thought Content: Meeting needs, discharging. Cognition: A&O x2 to self and place Insight: Poor Judgment: Poor Intervention PRN's used: Therapeutic interventions: Maintained a safe and supportive environment, ensured contract for safety, provided clear and simple instructions, provided direction and encouragement regarding performance of ADLs, monitored behaviors and maintained clear boundaries, provided positive reinforcement for positive behaviors and redirection for negative behaviors, and maintained Q15 min safety checks. Restraints/seclusion/emergency medication: NA Justification of Continued Inpatient Treatment: Pt. continues to require a safe and supportive environment while awaiting placement.
[2021-10-09] MEDS: QUETIAPINE 50 MG TAB.SR.24H PO SCH (16:15)
[2021-10-09] MEDS: sertraline 50mg tablet PO SCH (16:15)
[2021-10-09] MEDS: atorvastatin 20mg tablet PO SCH (16:16)
[2021-10-09] MEDS: erythromycin ophthalmic ointment 1gm tube EACHEYE SCH ×2 (18:00→21:00)
[2021-10-09] MEDS: mirtazapine 15mg tablet PO SCH (21:00)
--- NOTE | 2021-10-09 22:06 | NUR ---
Nursing Progress Note: Legal hold: LPS Client on involuntary status for GD Report received from SREEDHAR Garrett with use of SBAR. Why they are here: Pt admitted to [place] for Behavioral health on LPS conservatorship for Schizophrenia. Pt had escaped from this unit. Pt here for medication stabilization and placement. What has happened this shift: Pt was in his room at change of shift standing in the corner. Pt is refusing his eye ointment and shutting his bedroom door. pt got in bed and went to sleep. Pt was awaken for his HS med and eye ointment and refused to acknowledge this literary writer keeping himself covered under a blanket. About an hour after meds were offered pt came out and asked for his meds and cooperated with having eye ointment applied and requested snacks but isnt eating them. Pt went back to sleep. Assessment S/I, H/I: Denies A/VH: Denies Sleep: see sleep hours ADL's: Independent Group attendance: No Were meds taken: Yes Any med S/E: None observed or reported. Mental Status Exam Appearance: Young thin man, pale, greasy hair, appropriately dressed in green unit scrubs. Eye contact: Good Behavior: Ritualistic, Repetitive motions Speech: Fragmented, minimal Mood: Euthymic Affect: Flat Thought process: Thought blocking. Thought Content: Meeting needs, discharging. Cognition: A&O x2 to self and place Insight: Poor Judgment: Poor Intervention PRN's used: none Therapeutic interventions: Maintained a safe and supportive environment, ensured contract for safety, provided clear and simple instructions, provided direction and encouragement regarding performance of ADLs, monitored behaviors and maintained clear boundaries, provided positive reinforcement for positive behaviors and redirection for negative behaviors, and maintained Q15 min safety checks. Restraints/seclusion/emergency medication: NA Justification of Continued Inpatient Treatment: Pt. continues to require a safe and supportive environment while awaiting placement.
[2021-10-10] MEDS: NICOTINE POLACRILEX 2 MG LOZENGE BC PRN (06:35)
[2021-10-10] MEDS: megestrol acetate 400mg/10ml UD oral suspension PO SCH (07:44)
[2021-10-10] MEDS: naltrexone 50mg tablet PO SCH (07:44)
--- NOTE | 2021-10-10 08:39 | NUR ---
Reassessment: Pt PO intake continues to be poor, ~8% of regular meals and receiving peanut butter and jelly sandwiches BIDLD and milkshakes TIDWM, refusing most meals. Pt began behavior of dropping food on the floor again, as well as refusal of snacks, and need for increased encouragement at meals per geographic information systems analyst. Noted regular snack intake declined; unable to fully determine nutrition status through documentation. Pt has lost wt w/ a loss of 3.7 kg x 15 days per EMR. Given recent wt loss and continued poor PO intake, pt meets minimum criteria for malnutrition. Pt could benefit from nutrition support if medically appropriate and within POC. LBM 3/4, w/ bowel care available PRN. Will continue to follow closely. Recommendations: 1. Continue regular diet as tolerated 2. Peanut butter and jelly sandwich BIDLD; milkshake TIDWM 3. Encourage PO intake of meals/snacks 4. Initiate nutrition support if MD agreeable and within POC 5. Routine bowel care 6. Weekly scaled weights Addendum: 10/10/21 at [address] Amended: Links added. Addendum: 10/10/21 at [address] I have reviewed assessment by consultant intern
[2021-10-10 08:54] VITALS: BP 133/83
[2021-10-10 09:09] LABS: POTASSIUM 3.8 MMOL/L (3.3-5.1)
[2021-10-10] MEDS: erythromycin ophthalmic ointment 1gm tube EACHEYE SCH ×4 (09:45→21:09)
--- NOTE | 2021-10-10 14:45 | NUR ---
Nursing Progress Note: Legal hold: LPS Client on involuntary status for GD Report received from SREEDHAR Carlson with use of SBAR. Why they are here: Pt admitted to [place] for Behavioral health on LPS conservatorship for Schizophrenia. Pt had escaped from this unit. Pt here for medication stabilization and placement. What has happened this shift: Patient was asleep at change of shift and up soon after. Patient initially refused his eye antibiotic ointment but once he got it in his left eye he wanted it in his right. Patient swallowed his 2 pills this morning and had a good day. RN got patient some tater tots and root beer for snack and patient had a little of each. Patient has OCD, repetitive movements and appears to have thought blocking AEB patient is attempting to ask for something but cannot verbalize what he needs "I need, I need, I need. Never mind." Then patient walks away. Assessment S/I, H/I: Denies A/VH: Denies Sleep: Patient slept a little in the morning and laid down in the afternoon ADL's: Independent Group attendance: No Were meds taken: Yes Any med S/E: None observed or reported. Mental Status Exam Appearance: Young thin man, pale, greasy hair, appropriately dressed in green unit scrubs. Eye contact: Good Behavior: Ritualistic, Repetitive motions Speech: Fragmented, minimal Mood: Euthymic Affect: Flat Thought process: Thought blocking. Thought Content: Meeting needs, discharging. Cognition: A&O x2 to self and place Insight: Poor Judgment: Poor Intervention PRN's used: Nicotine Lozenge Therapeutic interventions: Maintained a safe and supportive environment, ensured contract for safety, provided clear and simple instructions, provided direction and encouragement regarding performance of ADLs, monitored behaviors and maintained clear boundaries, provided positive reinforcement for positive behaviors and redirection for negative behaviors, and maintained Q15 min safety checks. Restraints/seclusion/emergency medication: NA Justification of Continued Inpatient Treatment: Pt. continues to require a safe and supportive environment while awaiting placement.
[2021-10-10 15:42] LABS: ANION GAP 8 (8-16); CHLORIDE 109 MMOL/L (99-107); POTASSIUM 3.8 MMOL/L (3.5-5.1); SODIUM 142 MMOL/L (135-145)
[2021-10-10] MEDS: sertraline 50mg tablet PO SCH (16:27)
[2021-10-10] MEDS: atorvastatin 20mg tablet PO SCH (16:27)
[2021-10-10] MEDS: QUETIAPINE 50 MG TAB.SR.24H PO SCH (16:28)
[2021-10-10 20:00] VITALS: BP 110/75
[2021-10-10] MEDS: mirtazapine 15mg tablet PO SCH (20:44)
--- NOTE | 2021-10-10 22:36 | NUR ---
Nursing Progress Note: Legal hold: LPS Client on involuntary status for GD Report received from SREEDHAR Garrett with use of SBAR. Why they are here: Pt admitted to [place] for Behavioral health on LPS conservatorship for Schizophrenia. Pt had escaped from this unit. Pt here for medication stabilization and placement. What has happened this shift:Pt was opening and closing his door at change of shift and then he took a nap. Pt awaken for snacks and although he requests snacks doesnt eat much of them. Pt initially refused HS meds but then finally was able to sit down to have eye ointment applied pt states "this is weird". Educated pt on why he is having eye ointment applied. Pt took HS meds crushed with apple sauce tonight. Assessment S/I, H/I: Denies A/VH: Denies Sleep: see sleep hours ADL's: Independent Group attendance: No Were meds taken: Yes Any med S/E: None observed or reported. Mental Status Exam Appearance: Young thin man, pale, greasy hair, appropriately dressed in green unit scrubs. Eye contact: Good Behavior: Ritualistic, Repetitive motions Speech: Fragmented, minimal Mood: Euthymic Affect: Flat Thought process: Thought blocking. Thought Content: Meeting needs, discharging. Cognition: A&O x2 to self and place Insight: Poor Judgment: Poor Intervention PRN's used: none Therapeutic interventions: Maintained a safe and supportive environment, ensured contract for safety, provided clear and simple instructions, provided direction and encouragement regarding performance of ADLs, monitored behaviors and maintained clear boundaries, provided positive reinforcement for positive behaviors and redirection for negative behaviors, and maintained Q15 min safety checks. Restraints/seclusion/emergency medication: NA Justification of Continued Inpatient Treatment: Pt. continues to require a safe and supportive environment while awaiting placement.
[2021-10-11 08:00] VITALS: BP 106/72
[2021-10-11] MEDS: naltrexone 50mg tablet PO SCH (08:32)
[2021-10-11] MEDS: megestrol acetate 400mg/10ml UD oral suspension PO SCH (08:32)
[2021-10-11] MEDS: erythromycin ophthalmic ointment 1gm tube EACHEYE SCH ×4 (09:41→20:25)
[2021-10-11] MEDS: NICOTINE POLACRILEX 2 MG LOZENGE BC PRN ×2 (10:12→13:13)
[2021-10-11] MEDS ORDERED: temazepam 15mg capsule PO PRN (11:05)
--- NOTE | 2021-10-11 13:00 | NUR ---
Pt. off this unit at this time, accompanied by security, to attend court hearing.
--- NOTE | 2021-10-11 14:34 | NUR ---
Nursing Progress Note: Legal hold: LPS Client on involuntary status for GD Report received from SREEDHAR Carlson with use of SBAR. Why they are here: Pt admitted to [place] for Behavioral health on LPS conservatorship for Schizophrenia, OCD. Pt had escaped from this unit. Pt here for medication stabilization and placement. What has happened this shift: Patient sleeping at change of shift and up for breakfast. Patient ate 75% of his [place] toast. Patient is very thin and having difficulty completing a sentence today. Patient's eyes are still red with is right eye worse than the left. Patient took a shower and went to court today. Patient had a hard time walking out of here due to the repetitive walking back and forth. Patient given a sack lunch. Patient did not win his hearing. Patient appears to be going downhill in weight and behavior (difficulty speaking and increased OCD movement). Assessment S/I, H/I: Denies A/VH: Denies Sleep: Patient napped in the morning ADL's: Requires prompting and assistance Group attendance: No Were meds taken: Yes Any med S/E: None observed or reported. Mental Status Exam Appearance: Young thin man, pale, appropriately dressed in green unit scrubs. Eye contact: Good Behavior: Ritualistic, Repetitive motions Speech: Fragmented, minimal Mood: Euthymic Affect: Flat Thought process: Thought blocking. Thought Content: Meeting needs, discharging. Cognition: A&O x2 to self and place Insight: Poor Judgment: Poor Intervention PRN's used: Nicotine Lozenge Therapeutic interventions: Maintained a safe and supportive environment, ensured contract for safety, provided clear and simple instructions, provided direction and encouragement regarding performance of ADLs, monitored behaviors and maintained clear boundaries, provided positive reinforcement for positive behaviors and redirection for negative behaviors, and maintained Q15 min safety checks. Restraints/seclusion/emergency medication: NA Justification of Continued Inpatient Treatment: Pt. continues to require a safe and supportive environment while awaiting placement.
[2021-10-11] MEDS: sertraline 50mg tablet PO SCH (16:22)
[2021-10-11] MEDS: QUETIAPINE 50 MG TAB.SR.24H PO SCH (16:22)
[2021-10-11] MEDS: atorvastatin 20mg tablet PO SCH (16:25)
[2021-10-11 19:35] VITALS: BP 122/85
[2021-10-11] MEDS: mirtazapine 15mg tablet PO SCH (20:25)
--- NOTE | 2021-10-11 20:53 | NUR ---
Nursing Progress Note: Legal hold: LPS Client on involuntary status for GD Report received from SREEDHAR Garrett with use of SBAR. Why they are here: Pt admitted to [place] for Behavioral health on LPS conservatorship for Schizophrenia, OCD. Pt had escaped from this unit. Pt here for medication stabilization and placement. What has happened this shift: Pt awake in his room at change of shift, requesting snacks but doesnt eat much of them. Pt is encouraged to eat more of his snacks and he takes a couple of bites and throws it on the floor and then asks for more snacks. Pt takes some time but is directable and cooperative. Takes HS meds and allows writer editor to put erythromycin on his eyes. Assessment S/I, H/I: Denies A/VH: Denies Sleep:see sleep hours ADL's: Requires prompting and assistance Group attendance: No Were meds taken: Yes Any med S/E: None observed or reported. Mental Status Exam Appearance: Young thin man, pale, appropriately dressed in green unit scrubs. Eye contact: Good Behavior: Ritualistic, Repetitive motions Speech: Fragmented, minimal Mood: Euthymic Affect: Flat Thought process: Thought blocking. Thought Content: snacks Cognition: A&O x2 to self and place Insight: Poor Judgment: Poor Intervention PRN's used: none Therapeutic interventions: Maintained a safe and supportive environment, ensured contract for safety, provided clear and simple instructions, provided direction and encouragement regarding performance of ADLs, monitored behaviors and maintained clear boundaries, provided positive reinforcement for positive behaviors and redirection for negative behaviors, and maintained Q15 min safety checks. Restraints/seclusion/emergency medication: NA Justification of Continued Inpatient Treatment: Pt. continues to require a safe and supportive environment while awaiting placement.
[2021-10-12] MEDS: naltrexone 50mg tablet PO SCH (08:07)
[2021-10-12] MEDS: megestrol acetate 400mg/10ml UD oral suspension PO SCH (08:10)
[2021-10-12] MEDS: erythromycin ophthalmic ointment 1gm tube EACHEYE SCH ×4 (08:44→20:58)
[2021-10-12] MEDS: sertraline 50mg tablet PO SCH (16:29)
[2021-10-12] MEDS: atorvastatin 20mg tablet PO SCH (16:29)
--- NOTE | 2021-10-12 17:55 | NUR ---
Nursing Progress Note: Legal hold: LPS Client on involuntary status for GD Report received from nurse with use of SBAR: ELOY Alexis Why are they here: Pt admitted to [place] for Behavioral health today on LPS conservatorship for Schizophrenia. Pt had escaped from this unit 4-5 days earlier. Pt walked back into the emergency room this morning. Pt has wounds to bilateral thumbs that could be cold weather injury and to L foot. Pt has been off of his meds since leaving. Pt immediately requests to go to lower level of care, return to [place] or leave today. Pt here for medication stabilization and placement. Assessment What has happened this shift: RN received pt. asleep in bed at start of shift. Pt. refused vital signs but took medications and ate 25% of his breakfast. Pt. appeared to be in a good mood, smiling and was seen jumping back and forth in his room. Pt.s OCD behaviors are severe with pt. making multiple repetitive movements to do simple tasks like sitting down to receive his eye ointment or lifting up his hand to his mouth to take his medications. S/I, H/I: Denies A/VH: Denies. Sleep: Patient slept 3.5 hours last night per NOC shift, and did not appear to nap during the day. ADL's: Requires prompting at times. Pt. showered today. Group attendance: No Were meds taken: Yes Any med S/E: Denies. None observed Mental Status Exam Appearance: Pale, disheveled, appropriately dressed in green unit scrubs. Eye contact: WNL Behavior: Not cooperative at times. Ritualistic, impulsive behaviors. OCD seems to be getting worse. Speech: Has some pauses and delays in his speech. Mood: Euthymic throughout the day. Affect: Flat. Thought process: Thought blocking. Thought Content: Circumstantial. Cognition: A&O x2 Insight: Poor Judgment: Poor Interventions PRN's used: None Therapeutic interventions: Maintained a safe and supportive environment, ensured contract for safety, provided clear and simple instructions, provided direction and encouragement regarding performance of ADLs, monitored behaviors and maintained clear boundaries, provided positive reinforcement for positive behaviors and redirection for negative behaviors, and maintained Q15 min safety checks. Restraints/seclusion/emergency medication: NA Justification of Continued Inpatient Treatment: Pt. continues to require a safe and supportive environment while awaiting placement.
[2021-10-12 20:31] VITALS: BP 130/96
[2021-10-12] MEDS: LORazepam 1 MG tablet PO SCH (20:57)
[2021-10-12] MEDS: mirtazapine 15mg tablet PO SCH (20:57)
[2021-10-12] MEDS: QUETIAPINE 50 MG TAB.SR.24H PO SCH (21:04)
--- NOTE | 2021-10-13 03:13 | NUR ---
Nursing Progress Note: Legal hold: LPS Client on involuntary status for GD Report received from SREEDHAR Berkowitz with use of SBAR. Why they are here: Pt admitted to [place] for Behavioral health on LPS conservatorship for Schizophrenia, OCD. Pt had escaped from this unit. Pt here for medication stabilization and placement. What has happened this shift: Patient was observed standing in hallway in repetitive movement. Patient appeared to be stuck in his repetitive steps. Patient wasn't able to get out of it until tech helped him to shift. Once patient was assisted he made it a couple of steps before getting stuck again. Patient had to be assisted 3 more times before he was give his night medications. Patient had to be continuously encouraged to take medications and helped to keep drink steady to his mouth. An hour after taking medications patient was more stable. Patient was still observed displaying repetitive behavior but was able to get out unassisted. Nurse had to warn staff to be careful entering patients room for patient was found behind door multiple times stuck in repetition. Patient later was observed pacing hallway and was now able to communicate with staff member his needs. Patient had to be reminded it was time for bed and assisted into. assessment S/I, H/I: Denies A/VH: Denies Sleep:see sleep hours ADL's: Requires prompting and assistance Group attendance: No Were meds taken: Yes Any med S/E: None observed or reported. Mental Status Exam Appearance: Young thin man, pale, appropriately dressed in green unit scrubs. Eye contact: Good Behavior: Ritualistic, Repetitive motions Speech: Fragmented, minimal Mood: Euthymic Affect: Flat Thought process: Thought blocking. Thought Content: snacks Cognition: A&O x2 to self and place Insight: Poor Judgment: Poor Intervention PRN's used: none Therapeutic interventions: Maintained a safe and supportive environment, ensured contract for safety, provided clear and simple instructions, provided direction and encouragement regarding performance of ADLs, monitored behaviors and maintained clear boundaries, provided positive reinforcement for positive behaviors and redirection for negative behaviors, and maintained Q15 min safety checks. Restraints/seclusion/emergency medication: NA Justification of Continued Inpatient Treatment: Pt. continues to require a safe and supportive environment while awaiting placement.
[2021-10-13 07:52] VITALS: BP 118/80
[2021-10-13] MEDS: megestrol acetate 400mg/10ml UD oral suspension PO SCH (08:00)
[2021-10-13] MEDS: naltrexone 50mg tablet PO SCH (08:00)
[2021-10-13] MEDS: OLANZapine 2.5MG tablet PO SCH (08:00)
[2021-10-13] MEDS: LORazepam 1 MG tablet PO SCH ×3 (08:00→20:19)
[2021-10-13] MEDS: erythromycin ophthalmic ointment 1gm tube EACHEYE SCH ×4 (08:00→20:20)
--- NOTE | 2021-10-13 09:22 | NUR ---
PLACEMENT UPDATE TAD is seeking [facility] level of care. Clients packet is in the queue at [facility], [facility], [facility], and [facility]. Client has been declined at [facility], [facility], and [facility]. JAYCEE Aiken
--- NOTE | 2021-10-13 09:37 | NUR ---
Reassessment: Pt PO intake ~27% avg of regular meals and receiving peanut butter and jelly sandwiches BIDLD and milkshakes TIDWM, though pt refusing some meals. Pt continues behavior of dropping food on the floor, as well as refusal of snacks, and need for increased encouragement at meals per brand coordinator. Per RN note, regular snack intake declined, pt will take a couple of bites and then throw snacks on the floor and then ask for more snacks. Currently unable to fully determine nutrition status through documentation. Given continuous poor PO intake, pt could benefit from nutrition support if medically appropriate and within POC. LBM 3/4, w/ bowel care available PRN. sports internship d/w RN pt bowel patterns. RN stated pt likely had a more recent bowel movement, but that it was not documented and that the pt is a poor historian. Will continue to follow closely. Recommendations: 1. Continue regular diet as tolerated 2. Peanut butter and jelly sandwich BIDLD; milkshake TIDWM 3. Encourage PO intake of meals/snacks 4. IF poor PO intake continues, initiate nutrition support if MD agreeable and within POC 5. Routine bowel care 6. Weekly scaled weights Addendum: 10/13/21 at [address] I have reviewed assessment by director internal audit Addendum: 10/13/21 at 0938 by Osmani Norton - Churn Drill Operator RD Amended: Links added.
[2021-10-13] MEDS ORDERED: diphenhydrAMINE 50 mg/ml inj ONE (11:51)
[2021-10-13] MEDS ORDERED: LORazepam 2 mg/ml vial ONE (11:53)
[2021-10-13] MEDS ORDERED: haloperidol lactate 5mg/ml inj IM ONE ×2 (11:54→11:56)
[2021-10-13] MEDS: atorvastatin 20mg tablet PO SCH (16:00)
[2021-10-13] MEDS: sertraline 50mg tablet PO SCH (16:00)
--- NOTE | 2021-10-13 17:39 | NUR ---
Nursing Progress Note: Legal hold: LPS Client on involuntary status for GD Report received from nurse with use of SBAR: ELOY Alexis Why are they here: Pt admitted to [place] for Behavioral health today on LPS conservatorship for Schizophrenia. Pt had escaped from this unit 4-5 days earlier. Pt walked back into the emergency room this morning. Pt has wounds to bilateral thumbs that could be cold weather injury and to L foot. Pt has been off of his meds since leaving. Pt immediately requests to go to lower level of care, return to [place] or leave today. Pt here for medication stabilization and placement. Assessment What has happened this shift: RN received pt. asleep in bed at start of shift. Pt. awoke and requested to shower. RN assisted pt. in shower as pt. has severe repetitive and ritualistic behaviors. Pt. needs direction during shower as he will perseverate on turning and turning back the shower knob. Pt. needs assistance dressing as he will adjust and re-adjust his socks. Pt. took medications except he refused hi ophthalmic antibiotic. Pt. ate over 50% of his breakfast. After breakfast pt. became increasingly agitated, attempting to touch a females breast and swearing at and threatening staff. After pt. attempted to elope by pushing on exit doors pt. was placed in observation room in seclusion. While in there pt. making aggressive punching and kicking motions, turning the nursing call light on and off and cursing at staff. Pt. placed in isolation from 10:30 11:15am. After pt. released pt. continued to make threats and punching motions toward staff as well as peers. RN received order for Haldol 10mg, Ativan 2mg, and Benadryl 50mg IM. Medication administered and pt. slept for the entire afternoon. S/I, H/I: Denies A/VH: Denies. Sleep: Patient slept 4.75 hours last night per NOC shift, and napped the whole afternoon during the day. ADL's: Requires prompting at times. Pt. showered today. Group attendance: No Were meds taken: Yes Any med S/E: Denies. None observed Mental Status Exam Appearance: Pale, disheveled, appropriately dressed in green unit scrubs. Eye contact: WNL Behavior: Not cooperative at times. Severe OCD behaviors, AEB, Ritualistic, repetitive, and impulsive movements. Speech: Has some pauses and delays in his speech. Mood: Euthymic in the AM becoming agitated and aggressive. Affect: Flat. Thought process: Thought blocking. Thought Content: Discharge. Cognition: A&O x2 (To person and place) Insight: Poor Judgment: Poor Interventions PRN's used: Ativan, Haldol, and Benadryl IM x1. Therapeutic interventions: Maintained a safe and supportive environment, ensured contract for safety, provided clear and simple instructions, provided direction and encouragement regarding performance of ADLs, monitored behaviors and maintained clear boundaries, provided positive reinforcement for positive behaviors and redirection for negative behaviors, and maintained Q15 min safety checks. Restraints/seclusion/emergency medication: Seclusion and IM medications. Justification of Continued Inpatient Treatment: Pt. continues to require a safe and supportive environment while awaiting placement.
--- NOTE | 2021-10-13 18:10 | NUR ---
Patient awoke for 4.5 hour nap and had much more fluid movements, was able to take medications without ritualistic behavior, and verbalize needs easier. Pt. walked down to the dining room without difficulty patient only ate his cake but then walked back to his room.
[2021-10-13] MEDS: QUETIAPINE 50 MG TAB.SR.24H PO SCH (20:19)
[2021-10-13] MEDS: mirtazapine 15mg tablet PO SCH (20:20)
--- NOTE | 2021-10-14 01:54 | NUR ---
Nursing Progress Note: Legal hold: LPS Client on involuntary status for GD Report received from SREEDHAR Berkowitz with use of SBAR. Why they are here: Pt admitted to [place] for Behavioral health on LPS conservatorship for Schizophrenia, OCD. Pt had escaped from this unit. Pt here for medication stabilization and placement. What has happened this shift: Patient was found sleeping in room at beginning of shift. Patient isolated in room al shift. Patient was awaken by nurse in order to give night medications. Patient was given snack and went back to bed. assessment S/I, H/I: Denies A/VH: Denies Sleep:see sleep hours ADL's: Requires prompting and assistance Group attendance: No Were meds taken: Yes Any med S/E: None observed or reported. Mental Status Exam Appearance: Young thin man, pale, appropriately dressed in green unit scrubs. Eye contact: Good Behavior: Ritualistic, Repetitive motions Speech: Fragmented, minimal Mood: Euthymic Affect: Flat Thought process: Thought blocking. Thought Content: snacks Cognition: A&O x2 to self and place Insight: Poor Judgment: Poor Intervention PRN's used: none Therapeutic interventions: Maintained a safe and supportive environment, ensured contract for safety, provided clear and simple instructions, provided direction and encouragement regarding performance of ADLs, monitored behaviors and maintained clear boundaries, provided positive reinforcement for positive behaviors and redirection for negative behaviors, and maintained Q15 min safety checks. Restraints/seclusion/emergency medication: NA Justification of Continued Inpatient Treatment: Pt. continues to require a safe and supportive environment while awaiting placement.
[2021-10-14] MEDS: NICOTINE POLACRILEX 2 MG LOZENGE BC PRN ×3 (07:05→14:23)
[2021-10-14] MEDS: OLANZapine 2.5MG tablet PO SCH (07:30)
[2021-10-14] MEDS: naltrexone 50mg tablet PO SCH (07:32)
--- NOTE | 2021-10-14 07:38 | NUR ---
PLACEMENT NOTES Sent notes (10/07/21-10/13/21) to TAD office at their request for placement. JAYCEE Aiken
[2021-10-14 08:00] VITALS: BP 93/66
[2021-10-14] MEDS: megestrol acetate 400mg/10ml UD oral suspension PO SCH (08:50)
[2021-10-14] MEDS: erythromycin ophthalmic ointment 1gm tube EACHEYE SCH ×4 (08:50→20:42)
[2021-10-14] MEDS ORDERED: haloperidol 5mg tablet PO ONE (10:35)
[2021-10-14] MEDS: LORazepam 0.5 MG tablet PO SCH ×2 (12:26→20:41)
[2021-10-14] MEDS: acetaminophen 325mg tablet PO PRN (12:28)
[2021-10-14] MEDS: atorvastatin 20mg tablet PO SCH (16:00)
[2021-10-14] MEDS: sertraline 50mg tablet PO SCH (16:00)
[2021-10-14] MEDS: mag hydrox/Alum hydrox/simeth 30ml oral suspension PO PRN (17:32)
--- NOTE | 2021-10-14 17:44 | NUR ---
Nursing Progress Note: Legal hold: LPS Client on involuntary status for GD Report received from nurse with use of SBAR: ELOY Richards Why are they here: Pt admitted to [facility] for [facility] health today on LPS conservatorship for Schizophrenia. Pt had escaped from this unit 4-5 days earlier. Pt walked back into the emergency room this morning. Pt has wounds to bilateral thumbs that could be cold weather injury and to L foot. Pt has been off of his meds since leaving. Pt immediately requests to go to lower level of care, return to [facility] or leave today. Pt here for medication stabilization and placement. Assessment What has happened this shift: RN received pt. asleep in bed at start of shift. Pt. took all medications. Pt. slept for 2.5 hrs after breakfast. Pt. has significantly less ritualistic, repetitive behaviors today and is talking more clearly. 1:1 done at bedside. Pt. reports he had a BM this AM. Pt. denies all psych symptoms. Pt. reports he feels like he is ready to go. Pt. asks about food and drinks as he is only picking the sweet items off his tray. Pt. did eat a pena and cheese burrito for lunch. Pt. reports he is bored and asks for markers and paper to draw. Later pt. tells journalists and other writers, I want to run or jump, or do something I cant do anything in here. S/I, H/I: Denies A/VH: Denies. Sleep: Patient slept 8.25 hours last night per NOC shift, and napped approx. 2.5 hrs on day shift. ADL's: Requires prompting at times. Group attendance: No Were meds taken: Yes Any med S/E: Denies. None observed Mental Status Exam Appearance: Pale, clean, appropriately dressed in green unit scrubs. Eye contact: WNL Behavior: Cooperative, impulsive, pleasant. Less OCD behaviors today. Speech: Has some pauses and delays in his speech. Mood: Euthymic, bored. Affect: Congruent with mood. Thought process: Thought blocking. Thought Content: Discharge. Cognition: A&O x2 (To person and place) Insight: Poor Judgment: Poor Interventions PRN's used: None Therapeutic interventions: Maintained a safe and supportive environment, ensured contract for safety, provided clear and simple instructions, provided direction and encouragement regarding performance of ADLs, monitored behaviors and maintained clear boundaries, provided positive reinforcement for positive behaviors and redirection for negative behaviors, and maintained Q15 min safety checks. Restraints/seclusion/emergency medication: Seclusion and IM medications. Justification of Continued Inpatient Treatment: Pt. continues to require a safe and supportive environment while awaiting placement.
[2021-10-14 19:00] VITALS: BP 108/69
[2021-10-14] MEDS: mirtazapine 15mg tablet PO SCH (20:41)
[2021-10-14] MEDS: QUETIAPINE 50 MG TAB.SR.24H PO SCH (20:53)
--- NOTE | 2021-10-15 01:29 | NUR ---
Nursing Progress Note: Legal hold: LPS Client on involuntary status for GD Report received from SREEDHAR Berkowitz with use of SBAR. Why they are here: Pt admitted to [facility] for [facility] health on LPS conservatorship for Schizophrenia, OCD. Pt had escaped from this unit. Pt here for medication stabilization and placement. What has happened this shift: Patient was observed sleeping at beginning of shift. Patient continues to sleep until nurse brought in night medications. Patient took all of them except Seroquel. Patient refused to take medication due to it making him nauseous, drowsy and in a fog. Patient periodically gets up to ask for snacks and return to room. Assessment S/I, H/I: Denies A/VH: Denies Sleep:see sleep hours ADL's: Requires prompting and assistance Group attendance: No Were meds taken: Yes Any med S/E: None observed or reported. Mental Status Exam Appearance: Young thin man, pale, appropriately dressed in green unit scrubs. Eye contact: Good Behavior: Ritualistic, Repetitive motions Speech: Fragmented, minimal Mood: Euthymic Affect: Flat Thought process: Thought blocking. Thought Content: snacks Cognition: A&O x2 to self and place Insight: Poor Judgment: Poor Intervention PRN's used: none Therapeutic interventions: Maintained a safe and supportive environment, ensured contract for safety, provided clear and simple instructions, provided direction and encouragement regarding performance of ADLs, monitored behaviors and maintained clear boundaries, provided positive reinforcement for positive behaviors and redirection for negative behaviors, and maintained Q15 min safety checks. Restraints/seclusion/emergency medication: NA Justification of Continued Inpatient Treatment: Pt. continues to require a safe and supportive environment while awaiting placement.
[2021-10-15] MEDS: NICOTINE POLACRILEX 2 MG LOZENGE BC PRN ×3 (06:16→13:36)
[2021-10-15 07:37] VITALS: BP 127/85
[2021-10-15] MEDS: LORazepam 0.5 MG tablet PO SCH ×3 (08:15→21:45)
[2021-10-15] MEDS: megestrol acetate 400mg/10ml UD oral suspension PO SCH (08:15)
[2021-10-15] MEDS: haloperidol 5mg tablet PO SCH (08:15)
[2021-10-15] MEDS: naltrexone 50mg tablet PO SCH (08:16)
[2021-10-15] MEDS: mag hydrox/Alum hydrox/simeth 30ml oral suspension PO PRN (08:21)
[2021-10-15] MEDS: erythromycin ophthalmic ointment 1gm tube EACHEYE SCH ×4 (08:24→21:45)
--- NOTE | 2021-10-15 14:25 | NUR ---
Nursing Progress Note Legal hold: LPS Conserved Client on involuntary status for GD Report received from RN with use of SBAR Why are they here: Pt admitted to [facility] for [facility] health today on LPS conservatorship for Schizophrenia. Pt had escaped from this unit 4-5 days earlier. Pt walked back into the emergency room this morning. Pt has wounds to bilateral thumbs that could be cold weather injury and to L foot. Pt has been off of his meds since leaving. Pt immediately requests to go to lower level of care, return to [facility] or leave today. Pt here for medication stabilization and placement. Assessment What has happened this shift: Received Pt in bed sleeping w/o distress at the beginning of the shift. Pt woke and cooperative with vitals. Pt did not answer Qs directly during AM assessments. Pt ate a muffin only for breakfast and asked repeatedly for staff to buy him a pizza. Pt animated in morning and touching people inappropriately. Pt followed this RN into medication room and was redirected. Jozef took AM meds and afternoon Ativan. Pt spent time in his room and spoke aggressively with Pts in Recreation room around what to watch on TV. S/I, H/I: Denies A/VH: Denies Sleep: None this shift ADL's: Independent Group attendance: No Were Meds taken: Yes Any med S/E: None observed or reported Mental Status Exam Appearance: Casual in green scrubs Eye contact: Good Behavior: anxious; intrusive Speech: Fragmented, disorganized Mood: Good Affect: Blunted Thought process: Fragmented with possible thought blocking Thought Content: Circumstantial Cognition: A&O x3 to self, time and place Insight: Poor Judgment: Poor Interventions PRN's used: Maalox Therapeutic interventions: Attempt to have patient participate in morning assessment and conversation, provided clear and simple instructions, provided direction and encouragement regarding performance of ADLs, monitored behaviors and maintained clear boundaries, provided positive reinforcement for positive behaviors and redirection for negative behaviors, and maintained Q 15min safety checks. Restraints/seclusion/emergency medication: N/A Justification of Continued Inpatient Treatment: Patient continues to require a safe and supportive environment with medication adjustment and monitoring.
[2021-10-15] MEDS: atorvastatin 20mg tablet PO SCH (16:00)
[2021-10-15] MEDS: sertraline 50mg tablet PO SCH (16:00)
[2021-10-15 20:16] VITALS: BP 103/60
[2021-10-15] MEDS: mirtazapine 15mg tablet PO SCH (21:45)
[2021-10-15] MEDS: QUETIAPINE 50 MG TAB.SR.24H PO SCH (21:46)
--- NOTE | 2021-10-15 23:08 | NUR ---
Nursing Progress Note: Legal hold: LPS Client on involuntary status for GD Report received from RN with use of SBAR. Why they are here: Pt admitted to [facility] for Behavior[facility] health on LPS conservatorship for Schizophrenia, OCD. Pt had escaped from this unit. Pt here for medication stabilization and placement. What has happened this shift: Pt is visible on the unit, he comes up to typewriter assembly and parts inspector and asks for a marker and paper to color. RN says she will get it, and he responds, "don't be rude, you are coming at me like rude." RN reassures him she is not being rude. Pt then goes and lays in bed with a blanket over his face. He is medication compliant with his pills.Pt allows typewriter assembly and parts inspector to put erythromycin on his eyes under protest, but he does allow it. He calls RN a "dirty dog". He is then seen trying to wipe it out of his eyes with his blanket. Assessment S/I, H/I: Denies A/VH: Denies Sleep:see sleep hours ADL's: Requires prompting and assistance Group attendance: No Were meds taken: Yes Any med S/E: None observed or reported. Mental Status Exam Appearance: Young thin man, pale, appropriately dressed in green unit scrubs. Eye contact: Good Behavior: Ritualistic, Repetitive motions Speech: Fragmented, minimal Mood: Euthymic Affect: Flat Thought process: Thought blocking. Thought Content: snacks Cognition: A&O x2 to self and place Insight: Poor Judgment: Poor Intervention PRN's used: none Therapeutic interventions: Maintained a safe and supportive environment, ensured contract for safety, provided clear and simple instructions, provided direction and encouragement regarding performance of ADLs, monitored behaviors and maintained clear boundaries, provided positive reinforcement for positive behaviors and redirection for negative behaviors, and maintained Q15 min safety checks. Restraints/seclusion/emergency medication: NA Justification of Continued Inpatient Treatment: Pt. continues to require a safe and supportive environment while awaiting placement.
--- NOTE | 2021-10-16 07:14 | NUR ---
Reassessment: Pt w/ some improvement in PO on Regular diet, avg 43% x 9 meals and receiving peanut butter and jelly sandwiches BIDLD and milkshakes TIDWM, though pt refusing some meals. Pt also documented to frequently ask for snacks and need for increased encouragement at meals. Currently unable to fully determine nutrition status through documentation. Given continuous poor PO intake, pt could benefit from nutrition support if medically appropriate and within POC. LBM 10/13, w/ bowel care available PRN. Will continue to follow closely. Recommendations: 1. Continue regular diet as tolerated 2. Peanut butter and jelly sandwich BIDLD; milkshake TIDWM 3. Encourage PO intake of meals/snacks 4. IF poor PO intake continues, initiate nutrition support if MD agreeable and within POC 5. Routine bowel care 6. Weekly scaled weights Addendum: 10/16/21 at [address] Amended: Links added.
[2021-10-16] MEDS: erythromycin ophthalmic ointment 1gm tube EACHEYE SCH ×3 (07:37→17:26)
[2021-10-16] MEDS: naltrexone 50mg tablet PO SCH (07:38)
[2021-10-16] MEDS: LORazepam 0.5 MG tablet PO SCH ×3 (07:38→20:55)
[2021-10-16] MEDS: haloperidol 5mg tablet PO SCH ×2 (07:38→20:55)
[2021-10-16] MEDS: megestrol acetate 400mg/10ml UD oral suspension PO SCH (07:38)
[2021-10-16] MEDS: NICOTINE POLACRILEX 2 MG LOZENGE BC PRN ×2 (08:36→14:34)
[2021-10-16 08:58] VITALS: BP 118/72
[2021-10-16] MEDS: mag hydrox/Alum hydrox/simeth 30ml oral suspension PO PRN (10:03)
--- NOTE | 2021-10-16 15:10 | NUR ---
Nursing Progress Note: Jozef Legal hold: LPS Conserved Client on involuntary status for GD Report received from RN with use of SBAR Why are they here: Pt admitted to [facility] for Behavior[facility] health today on LPS conservatorship for Schizophrenia. Pt had escaped from this unit 4-5 days earlier. Pt walked back into the emergency room this morning. Pt has wounds to bilateral thumbs that could be cold weather injury and to L foot. Pt has been off of his meds since leaving. Pt immediately requests to go to lower level of care, return to [facility] [place] or leave today. Pt here for medication stabilization and placement. Assessment What has happened this shift: Pt. received sleeping, woke for AM meds and 1:1 assessment. Pt. denies SI, HI, and stated I dont know Im here, I want out. Pt. ate breakfast with cohorts, interacting minimally. He approached pattern chart writer asking for more breakfast, but was found to have eaten poorly and refused his supplemental shake; pattern chart writer encouraged more intake, but he presented with paranoia stating I cant, unsafe, a trick, you know Pt. often is hopping in the bernard and continues with fragmented speech. He requested a nicotine lozenge after breakfast. Late morning pt. approached pattern chart writer reporting hunger, give me Maalox he is currently on appetite stimulant, but refused a snack, PRN Maalox given. During Maalox pass pt. dropped it on the floor resulting in portion of med splashing on the floor; he was provided with paper towels and assisted pattern chart writer to clean the floor. Pt. had a shower this afternoon. S/I, H/I: Denies A/VH: Denies Sleep: 2 naps ADL's: Independent Group attendance: NA Were Meds taken: Yes Any med S/E: None observed or reported Mental Status Exam Appearance: Thin, pale young male in green scrubs Eye contact: Intense Behavior: Intrusive, paranoid. Speech: Fragmented, disorganized Mood: Good Affect: Blunted Thought process: Fragmented with possible thought blocking Thought Content: Circumstantial Cognition: A&O x3 to self, time and place Insight: Poor Judgment: Poor Interventions PRN's used: Nicotine lozenge X2, Maalox Therapeutic interventions: Attempt to have patient participate in morning assessment and conversation, provided clear and simple instructions, provided direction and encouragement regarding performance of ADLs, monitored behaviors and maintained clear boundaries, provided positive reinforcement for positive behaviors and redirection for negative behaviors, and maintained Q 15min safety checks. Restraints/seclusion/emergency medication: N/A Justification of Continued Inpatient Treatment: Patient continues to require a safe and supportive environment with medication adjustment and monitoring.
[2021-10-16] MEDS: sertraline 50mg tablet PO SCH (16:10)
[2021-10-16] MEDS: atorvastatin 20mg tablet PO SCH (16:10)
[2021-10-16 20:00] VITALS: BP 108/71
[2021-10-16] MEDS: mirtazapine 15mg tablet PO SCH (20:55)
[2021-10-16] MEDS: QUETIAPINE 50 MG TAB.SR.24H PO SCH (20:57)
--- NOTE | 2021-10-17 01:16 | NUR ---
Nursing Progress Note: Legal hold: LPS Client on involuntary status for GD Report received from RN with use of SBAR. Why they are here: Pt admitted to [facility] for Behavior[facility] health on LPS conservatorship for Schizophrenia, OCD. Pt had escaped from this unit. Pt here for medication stabilization and placement. What has happened this shift: Patient isolating to his room at shift change. Upon entering his room for 1:1, patient is standing in the corner. When asked patient states, "I'm fine, can you get me something to eat?" Told him snack time was soon, and he said he's ok with that. He was out for a snack, then accepted his medications, grumbling the whole time that he hates Seroquel, "IT DOESN'T WORK." Patient came out later asking for burrito, but ended up with crackers. Assessment S/I, H/I: Denies A/VH: Denies Sleep: See sleep hours ADL's: Requires prompting and assistance Group attendance: No Were meds taken: Yes Any med S/E: None observed or reported. Mental Status Exam Appearance: Young thin man, pale, appropriately dressed in green unit scrubs. Eye contact: Good Behavior: Ritualistic, Repetitive motions, guarded, isolates. Speech: Fragmented, minimal Mood: Euthymic Affect: Flat Thought process: Thought blocking. Thought Content: snacks Cognition: A&O x2 to self and place Insight: Poor Judgment: Poor Intervention PRN's used: none Therapeutic interventions: Maintained a safe and supportive environment, ensured contract for safety, provided clear and simple instructions, provided direction and encouragement regarding performance of ADLs, monitored behaviors and maintained clear boundaries, provided positive reinforcement for positive behaviors and redirection for negative behaviors, and maintained Q15 min safety checks. Restraints/seclusion/emergency medication: NA Justification of Continued Inpatient Treatment: Pt. continues to require a safe and supportive environment while awaiting placement.
[2021-10-17] MEDS: naltrexone 50mg tablet PO SCH (07:51)
[2021-10-17] MEDS: LORazepam 0.5 MG tablet PO SCH ×3 (07:51→20:03)
[2021-10-17] MEDS: haloperidol 5mg tablet PO SCH ×2 (07:51→20:03)
[2021-10-17] MEDS: megestrol acetate 400mg/10ml UD oral suspension PO SCH (07:51)
[2021-10-17 07:54] VITALS: BP 107/66
[2021-10-17] MEDS: NICOTINE POLACRILEX 2 MG LOZENGE BC PRN ×3 (07:55→15:52)
--- NOTE | 2021-10-17 15:41 | NUR ---
Nursing Progress Note: Jozef Legal hold: LPS Conserved Client on involuntary status for GD Report received from RN with use of SBAR Why are they here: Pt admitted to [facility] for [facility] health today on LPS conservatorship for Schizophrenia. Pt had escaped from this unit 4-5 days earlier. Pt walked back into the emergency room this morning. Pt has wounds to bilateral thumbs that could be cold weather injury and to L foot. Pt has been off of his meds since leaving. Pt immediately requests to go to lower level of care, return to [facility] or leave today. Pt here for medication stabilization and placement. Assessment What has happened this shift: Pt. received sleeping, woke for AM meds and 1:1 assessment. Pt. denies SI, HI, and stated Pt. ate meals with cohorts, interacting minimally, but staying present in a crowd. He approached magazine writer asking for lozenge. Pt. continues with fragmented speech throughout shift. Before lunch pt. requested Ativan; magazine writer advised pt. he doesnt have PRN Ativan, and he stated want Ativan, I wantto leave I advised pt. he had to stay here. No door checking or elopement behavior observed. Pt. c/o tooth hurt referencing the Rt. Side he would not specify which quadrant nor allow to me visually assess, and refused PRN Tylenol. Provider notified. Later pt. requested Zyprexa, but refused to report what was bothering him. No behaviors this afternoon. S/I, H/I: Denies A/VH: Denies Sleep: 1 hr naps ADL's: Independent Group attendance: No Were Meds taken: Yes Any med S/E: None observed or reported Mental Status Exam Appearance: Thin, pale young male in green scrubs Eye contact: Intense Behavior: Intrusive Speech: Fragmented, disorganized Mood: Obsessive Affect: Blunted Thought process: Fragmented with possible thought blocking Thought Content: Circumstantial Cognition: A&O x3 to self, time and place Insight: Poor Judgment: Poor Interventions PRN's used: Nicotine lozenge X2 Therapeutic interventions: Attempt to have patient participate in morning assessment and conversation, provided clear and simple instructions, provided direction and encouragement regarding performance of ADLs, monitored behaviors and maintained clear boundaries, provided positive reinforcement for positive behaviors and redirection for negative behaviors, and maintained Q 15min safety checks. Restraints/seclusion/emergency medication: N/A Justification of Continued Inpatient Treatment: Patient continues to require a safe and supportive environment with medication adjustment and monitoring.
[2021-10-17] MEDS: atorvastatin 20mg tablet PO SCH (15:51)
[2021-10-17] MEDS: sertraline 50mg tablet PO SCH (15:51)
[2021-10-17 20:00] VITALS: BP 110/68
[2021-10-17] MEDS: QUETIAPINE 50 MG TAB.SR.24H PO SCH (20:03)
[2021-10-17] MEDS: mirtazapine 15mg tablet PO SCH (20:03)
--- NOTE | 2021-10-18 01:09 | NUR ---
Nursing Progress Note: Jozef Legal hold: LPS Conserved Client on involuntary status for GD Report received from RN with use of SBAR Why are they here: Pt admitted to [facility] for Behavioral health today on LPS conservatorship for Schizophrenia. Pt had escaped from this unit 4-5 days earlier. Pt walked back into the emergency room this morning. Pt has wounds to bilateral thumbs that could be cold weather injury and to L foot. Pt has been off of his meds since leaving. Pt immediately requests to go to lower level of care, return to [facility] or leave today. Pt here for medication stabilization and placement. Assessment What has happened this shift: Pt. received lying in bed resting, pt friendly and calm. Pt. denies SI, HI. Pt up for snacks in community room and took all HS medications crushed in applesauce. Pt went back to his room, ate snacks and isolated to room. Pt up during the night requesting juice and cookies. S/I, H/I: Denies A/VH: Denies Sleep: ADL's: Independent Group attendance: No Were Meds taken: Yes Any med S/E: None observed or reported Mental Status Exam Appearance: Thin, pale young male in green scrubs Eye contact: Intense Behavior: Intrusive Speech: Fragmented, disorganized Mood: Obsessive Affect: Blunted Thought process: Fragmented with possible thought blocking Thought Content: Circumstantial Cognition: A&O x3 to self, time and place Insight: Poor Judgment: Poor Interventions PRN's used: Therapeutic interventions: Attempt to have patient participate in morning assessment and conversation, provided clear and simple instructions, provided direction and encouragement regarding performance of ADLs, monitored behaviors and maintained clear boundaries, provided positive reinforcement for positive behaviors and redirection for negative behaviors, and maintained Q 15min safety checks. Restraints/seclusion/emergency medication: N/A Justification of Continued Inpatient Treatment: Patient continues to require a safe and supportive environment with medication adjustment and monitoring.
[2021-10-18] MEDS: NICOTINE POLACRILEX 2 MG LOZENGE BC PRN ×2 (06:05→13:47)
[2021-10-18 07:46] VITALS: BP 117/75
[2021-10-18] MEDS: naltrexone 50mg tablet PO SCH (08:02)
[2021-10-18] MEDS: haloperidol 5mg tablet PO SCH ×2 (08:02→19:53)
[2021-10-18] MEDS: LORazepam 0.5 MG tablet PO SCH ×3 (08:02→19:53)
[2021-10-18] MEDS: megestrol acetate 400mg/10ml UD oral suspension PO SCH (08:03)
[2021-10-18] MEDS: acetaminophen 325mg tablet PO PRN ×2 (12:00→18:35)
[2021-10-18] MEDS: sertraline 50mg tablet PO SCH (16:25)
[2021-10-18] MEDS: atorvastatin 20mg tablet PO SCH (16:25)
[2021-10-18] MEDS: mag hydrox/Alum hydrox/simeth 30ml oral suspension PO PRN (16:25)
--- NOTE | 2021-10-18 17:13 | NUR ---
Nursing Progress Note: CLIO Legal hold: LPS Conserved Client on involuntary status for GD Report received from SREEDHAR Alexis with use of SBAR Why are they here: [facility] today on LPS conservatorship for Schizophrenia. Pt had escaped from this unit 4-5 days earlier. Pt walked back into the emergency room this morning. Pt has wounds to bilateral thumbs that could be cold weather injury and to L foot. Pt has been off of his meds since leaving. Pt immediately requests to go to lower level of care, return to [facility] or leave today. Pt here for medication stabilization and placement. Assessment What has happened this shift: Received patient sleeping at shift change, no distress noted. Pt woke prior to breakfast and came to nurses station. Pt was compliant with medication and care. Pts morning meds were crushed with applesauce, afternoon meds were given with water. Basin Cleaner stood by for 10 minutes to assure pt had swallowed pills. In pts fragmented speech he talked about me and my dad have traveling and working hard. Pt had two episodes where he pushed on both exit doors and engaged alarm. Pt didnt attempt to elope, just turned around, hopped and went to his room. When asked why he did it pt stated I didnt want to get shot. Pt administered Maalox in after My stomach is crunched up. Tylenol for headache 04/15 per pt report. S/I, H/I: Pt denies both. A/VH: Pt denies both. Sleep: 7.25 hours per sleep assessment. No naps today. ADL's: Independent Group attendance: No Were Meds taken: Yes, without out issue. AM crushed in applesauce. PM with water. Any med S/E: None observed or reported Mental Status Exam Appearance: Thin, pale young male in green scrubs Eye contact: Fair Behavior: Cooperative with some redirection, intrusive at times, amnimated. Speech: Fragmented, disorganized Mood: Obsessive Affect: Blunted Thought process: Fragmented with possible thought blocking Thought Content: Circumstantial Cognition: A&O x3 to self, time and place Insight: Poor Judgment: Poor Interventions PRN's used: Nicotine lozenge, Maalox, Tylenol. Therapeutic interventions: Provided clear and simple instructions, provided direction and encouragement regarding performance of ADLs, monitored behaviors and maintained clear boundaries, provided positive reinforcement for positive behaviors and redirection for negative behaviors, and maintained Q 15min safety checks. Restraints/seclusion/emergency medication: N/A Justification of Continued Inpatient Treatment: Patient continues to require a safe and supportive environment with medication adjustment and monitoring.
[2021-10-18] MEDS: QUETIAPINE 150 MG TAB.SR.24H PO SCH (19:53)
[2021-10-18] MEDS: mirtazapine 15mg tablet PO SCH (19:53)
[2021-10-18 20:00] VITALS: BP 113/76
--- NOTE | 2021-10-19 01:09 | NUR ---
Nursing Progress Note: [place] Legal hold: LPS Conserved Client on involuntary status for GD Report received from Sho ELI with use of SBAR Why are they here: Pt admitted to [facility] today on LPS conservatorship for Schizophrenia. Pt had escaped from this unit 4-5 days earlier. Pt walked back into the emergency room this morning. Pt has wounds to bilateral thumbs that could be cold weather injury and to L foot. Pt has been off of his meds since leaving. Pt immediately requests to go to lower level of care, return to [place] or leave today. Pt here for medication stabilization and placement. Assessment What has happened this shift: Received patient up in the hallway requesting Ativan and then patient changed his mind to Tylenol for a toothache. 650MG Tylenol given. Pt took all HS medications without issue crushed in yogurt. Pt up for snacks. Pt went back to his room. Pt up several times requesting snacks and room temperature change. S/I, H/I: Pt denies both. A/VH: Pt denies both. Sleep: ADL's: Independent Group attendance: No Were Meds taken: Yes, without out issue/crushed in yogurt Any med S/E: None observed or reported Mental Status Exam Appearance: Thin, pale young male in green scrubs Eye contact: Fair Behavior: Cooperative with some redirection, intrusive at times Speech: Fragmented, disorganized Mood: Obsessive Affect: Blunted Thought process: Fragmented with possible thought blocking Thought Content: Circumstantial Cognition: A&O x3 to self, time and place Insight: Poor Judgment: Poor Interventions PRN's used:Tylenol. Therapeutic interventions: Provided clear and simple instructions, provided direction and encouragement regarding performance of ADLs, monitored behaviors and maintained clear boundaries, provided positive reinforcement for positive behaviors and redirection for negative behaviors, and maintained Q 15min safety checks. Restraints/seclusion/emergency medication: N/A Justification of Continued Inpatient Treatment: Patient continues to require a safe and supportive environment with medication adjustment and monitoring.
[2021-10-19] MEDS: haloperidol 5mg tablet PO SCH ×3 (07:24→16:12)
[2021-10-19] MEDS: megestrol acetate 400mg/10ml UD oral suspension PO SCH (07:24)
[2021-10-19] MEDS: naltrexone 50mg tablet PO SCH (07:24)
[2021-10-19] MEDS: LORazepam 0.5 MG tablet PO SCH ×3 (07:24→19:39)
[2021-10-19 07:41] VITALS: BP 107/60
[2021-10-19] MEDS: NICOTINE POLACRILEX 2 MG LOZENGE BC PRN ×2 (08:58→12:39)
--- NOTE | 2021-10-19 09:24 | NUR ---
Reassessment: Pt PO intake has slightly declined w/ 22% average intake meals since last nutrition assessment 10/16. Pt is still receiving peanut butter and jelly sandwiches BIDLD in addition to an entree, and milkshakes TIDWM. Pt is participating in snacks and even requesting additional snacks per diffusion operator. Though pt's documented PO intake is poor, he is receiving additional food and consuming snacks regularly. However, currently unable to fully determine nutrition status through documentation. Given continuous poor PO intake, pt could benefit from nutrition support if medically appropriate and within POC. LBM 10/16, w/ bowel care available PRN. Will continue to follow closely. Recommendations: 1. Continue regular diet as tolerated 2. Peanut butter and jelly sandwich BIDLD; milkshake TIDWM 3. Encourage PO intake of meals/snacks 4. IF poor PO intake continues, initiate nutrition support if MD agreeable and within POC 5. Routine bowel care 6. Weekly scaled weights Addendum: 10/19/21 at [address] Amended: Links added. Addendum: 10/19/21 at [address] I have reviewed assessment by technical internship
--- NOTE | 2021-10-19 11:54 | NUR ---
PLACEMENT Sent updated notes to [facility] office (10/14-10/18) at their request. JAYCEE Aiken
--- NOTE | 2021-10-19 15:23 | NUR ---
Nursing Progress Note: [facility] Legal hold: LPS Conserved Client on involuntary status for GD Report received from SREEDHAR Alexis with use of SBAR Why are they here: [facility] LPS conservatorship for Schizophrenia. Pt had escaped from this unit 4-5 days earlier. Pt walked back into the emergency room this morning. Pt has wounds to bilateral thumbs that could be cold weather injury and to L foot. Pt has been off of his meds since leaving. Pt immediately requests to go to lower level of care, return to [place] or leave today. Pt here for medication stabilization and placement. Assessment What has happened this shift: Received patient sleeping at shift change, no distress noted. Pt woke prior to breakfast and came to nurses station requesting morning medications. Soon after receiving medication pt went and pushed on both sets of door, setting off alarm, When directed back to his room pt stated all this conflict I cant handle this. You cant keep me in here. You cant treat me like this, I am being held captive. It was suggested to pt to write or color. Pt asked for paper and pen and then asked for nicotine lozenge, otherwise I will trip out. Pt voiced in fragmented speech his thought process frustration. I cant do nothing they get all mixed up. Pt yen a picture (fragmented speech) see its that mountain and pointed out the window to [facility]. Pt wrote on paper [facility] and mine. Pt stated everything I ever do ends up in the trash. Pt wavered back and forth to take picture down from wall (as it was taped up) see how that happens, it gets irritating. S/I, H/I: Pt denies both. A/VH: Pt denies both. Sleep: 7.25 hours per sleep assessment. No naps today. ADL's: Independent Group attendance: No Were Meds taken: Yes, without out issue. Any med S/E: None observed or reported Mental Status Exam Appearance: Thin, pale young male in green scrubs, scruffy facial hair. Eye contact: Fair Behavior: Cooperative with some redirection, intrusive at times, animated. Speech: Fragmented, disorganized Mood: Obsessive Affect: Blunted Thought process: Fragmented with possible thought blocking Thought Content: Getting needs met. Cognition: A&O x3 to self, time and place Insight: Poor Judgment: Poor Interventions PRN's used: Nicotine lozenge Therapeutic interventions: Provided clear and simple instructions, provided direction and encouragement regarding performance of ADLs, monitored behaviors and maintained clear boundaries, provided positive reinforcement for positive behaviors and redirection for negative behaviors, and maintained Q 15min safety checks. Restraints/seclusion/emergency medication: N/A Justification of Continued Inpatient Treatment: Patient continues to require a safe and supportive environment with medication adjustment and monitoring.
[2021-10-19] MEDS: atorvastatin 20mg tablet PO SCH (16:11)
[2021-10-19] MEDS: sertraline 50mg tablet PO SCH (16:12)
[2021-10-19] MEDS: QUETIAPINE 150 MG TAB.SR.24H PO SCH (19:39)
[2021-10-19] MEDS: mirtazapine 15mg tablet PO SCH (19:39)
[2021-10-19 20:00] VITALS: BP 107/60
--- NOTE | 2021-10-20 00:07 | NUR ---
Nursing Progress Note: [facility] Legal hold: LPS Conserved Client on involuntary status for GD Report received from SREEDHAR Berkowitz with use of SBAR Why are they here: Pt admitted to [facility] today on LPS conservatorship for Schizophrenia. Pt had escaped from this unit 4-5 days earlier. Pt walked back into the emergency room this morning. Pt has wounds to bilateral thumbs that could be cold weather injury and to L foot. Pt has been off of his meds since leaving. Pt immediately requests to go to lower level of care, return to [place] or leave today. Pt here for medication stabilization and placement. Assessment What has happened this shift: Received patient resting in his room. Pt woke up and door checked, pt was re-directed and HS mediations given early crushed in yogurt. Pt up several times requesting his room temperature to be changed. Pt up for snacks and isolated all evening to his room. S/I, H/I: Pt denies both. A/VH: Pt denies both. Sleep: ADL's: Independent Group attendance: No Were Meds taken: Yes, without out issue. Any med S/E: None observed or reported Mental Status Exam Appearance: Thin, pale young male in green scrubs, scruffy facial hair. Eye contact: Fair Behavior: Cooperative with some redirection, intrusive at times, animated. Speech: Fragmented, disorganized Mood: Obsessive Affect: Blunted Thought process: Fragmented with possible thought blocking Thought Content: Getting needs met. Cognition: A&O x3 to self, time and place Insight: Poor Judgment: Poor Interventions PRN's used: Therapeutic interventions: Provided clear and simple instructions, provided direction and encouragement regarding performance of ADLs, monitored behaviors and maintained clear boundaries, provided positive reinforcement for positive behaviors and redirection for negative behaviors, and maintained Q 15min safety checks. Restraints/seclusion/emergency medication: N/A Justification of Continued Inpatient Treatment: Patient continues to require a safe and supportive environment with medication adjustment and monitoring.
[2021-10-20] MEDS: naltrexone 50mg tablet PO SCH (07:05)
[2021-10-20] MEDS: LORazepam 0.5 MG tablet PO SCH ×3 (07:05→20:11)
[2021-10-20] MEDS: megestrol acetate 400mg/10ml UD oral suspension PO SCH (07:05)
[2021-10-20] MEDS: haloperidol 5mg tablet PO SCH ×3 (07:05→16:06)
[2021-10-20 07:30] VITALS: BP 109/69
[2021-10-20] MEDS: NICOTINE POLACRILEX 2 MG LOZENGE BC PRN ×3 (07:43→15:54)
[2021-10-20] MEDS: acetaminophen 325mg tablet PO PRN ×2 (07:44→15:54)
[2021-10-20] MEDS: polyvinyl alcohol ophthalmic drops 15ml bottle EACHEYE PRN (10:54)
[2021-10-20] MEDS: atorvastatin 20mg tablet PO SCH (16:06)
[2021-10-20] MEDS: sertraline 50mg tablet PO SCH (16:06)
--- NOTE | 2021-10-20 17:20 | NUR ---
Nursing Progress Note: [facility] Legal hold: LPS Conserved Client on involuntary status for GD Report received from SREEDHAR Alexis with use of SBAR. Why they are here: Pt admitted to [facility] today on LPS conservatorship for Schizophrenia. Pt had escaped from this unit 4-5 days earlier. Pt walked back into the emergency room this morning. Pt has wounds to bilateral thumbs that could be cold weather injury and to L foot. Pt has been off of his meds since leaving. Pt immediately requests to go to lower level of care, return to [place] or leave today. Pt here for medication stabilization and placement. Assessment What has happened this shift: Patient is resting quietly in bed at the start of the shift. Cooperative with 1:1 assessment and medications. Some exit seeking behavior noted in the late morning but the patient is able to be redirected. Complains of a headache relieved by PRN Tylenol. Speech is disorganized and fragmented. Ritualistic/ repetitive behavior is noted. S/I, H/I: Denies A/VH: Denies Sleep: 1 hour in the morning ADL's: Independent Group attendance: No Were Meds taken: Yes Any med S/E: None observed or reported. Mental Status Exam Appearance: Thin, pale young male, somewhat disheveled wearing green unit scrubs. Eye contact: Good Behavior: Cooperative, ritualistic/ repetitive Speech: Fragmented, disorganized Mood: Good. Appears Euthymic Affect: Blunted with brightening Thought process: Fragmented, possible thought blocking Thought Content: Wanting to leave. Cognition: A&O x3 to self, time and place Insight: Poor Judgment: Poor Interventions PRN's used: Tylenol, nicotine lozenge Therapeutic interventions: Provided clear and simple instructions, provided direction and encouragement regarding performance of ADLs, monitored behaviors and maintained clear boundaries, provided positive reinforcement for positive behaviors and redirection for negative behaviors, and maintained Q 15min safety checks. Restraints/seclusion/emergency medication: N/A Justification of Continued Inpatient Treatment: Patient continues to require a safe and supportive environment with medication adjustment and monitoring.
[2021-10-20] MEDS ORDERED: diphenhydrAMINE 50 mg/ml inj IM ONE (19:25)
[2021-10-20] MEDS ORDERED: haloperidol lactate 5mg/ml inj IM ONE (19:25)
[2021-10-20] MEDS ORDERED: LORazepam 2 mg/ml vial IM ONE (19:25)
[2021-10-20 19:51] VITALS: BP 119/77
[2021-10-20] MEDS: QUETIAPINE 150 MG TAB.SR.24H PO SCH (20:11)
[2021-10-20] MEDS: mirtazapine 15mg tablet PO SCH (20:11)
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
--- NOTE | 2021-10-21 02:23 | NUR ---
Nursing Progress Note: [place] Legal hold: LPS Conserved Client on involuntary status for GD Report received from SREEDHAR Garrett with use of SBAR. Why they are here: Pt admitted to [facility] today on LPS conservatorship for Schizophrenia. Pt had escaped from this unit 4-5 days earlier. Pt walked back into the emergency room this morning. Pt has wounds to bilateral thumbs that could be cold weather injury and to L foot. Pt has been off of his meds since leaving. Pt immediately requests to go to lower level of care, return to [place] or leave today. Pt here for medication stabilization and placement. Assessment What has happened this shift: Patient was observed standing in hallway at beginning of shift. 20 minuets after shift reports patient started pushing on the door and setting off the alarm. Patient attempted this 6 more times, each time becoming more aggressive with staff and yelling profanities at them. After 4 time patient began pushing and swinging at staff members. A B2 shot was ordered and given. Patient pushed on the door 2 more times after getting the B2 shot. Nurse checked with JEM Coulter about whether or not he still wanted Jozef to have his regularly scheduled medications including 0.5 mg of Ativan. JEM said it was alright considering it was such a small dose. Patient finally went to sleep around 9:30 pm. S/I, H/I: Denies A/VH: Denies Sleep: See sleep assessment ADL's: Independent Group attendance: No Were Meds taken: Yes Any med S/E: None observed or reported. Mental Status Exam Appearance: Thin, pale young male, somewhat disheveled wearing green unit scrubs. Eye contact: Good Behavior: combative , argumentative, ritualistic/ repetitive Speech: Fragmented, disorganized Mood: argumentative Affect: Blunted with brightening Thought process: Fragmented, possible thought blocking Thought Content: Wanting to leave. Cognition: A&O x3 to self, time and place Insight: Poor Judgment: Poor Interventions PRN's used: B2 shot Therapeutic interventions: Provided clear and simple instructions, provided direction and encouragement regarding performance of ADLs, monitored behaviors and maintained clear boundaries, provided positive reinforcement for positive behaviors and redirection for negative behaviors, and maintained Q 15min safety checks. Restraints/seclusion/emergency medication: N/A Justification of Continued Inpatient Treatment: Patient continues to require a safe and supportive environment with medication adjustment and monitoring.
[2021-10-21] MEDS: NICOTINE POLACRILEX 2 MG LOZENGE BC PRN ×3 (06:52→13:32)
[2021-10-21] MEDS: mag hydrox/Alum hydrox/simeth 30ml oral suspension PO PRN (06:52)
[2021-10-21] MEDS: naltrexone 50mg tablet PO SCH (07:12)
[2021-10-21] MEDS: haloperidol 5mg tablet PO SCH ×3 (07:12→16:41)
[2021-10-21] MEDS: megestrol acetate 400mg/10ml UD oral suspension PO SCH (07:12)
[2021-10-21] MEDS: LORazepam 0.5 MG tablet PO SCH ×3 (07:13→20:33)
[2021-10-21 07:57] VITALS: BP 111/79
[2021-10-21] MEDS: acetaminophen 325mg tablet PO PRN (13:55)
[2021-10-21] MEDS: atorvastatin 20mg tablet PO SCH (16:41)
[2021-10-21] MEDS: sertraline 50mg tablet PO SCH (16:41)
--- NOTE | 2021-10-21 17:12 | NUR ---
Nursing Progress Note: [place] Legal hold: LPS Conserved Client on involuntary status for GD Report received from SREEDHAR Pierce with use of SBAR. Why they are here: [facility] LPS conservatorship for Schizophrenia. Pt had escaped from this unit 4-5 days earlier. Pt walked back into the emergency room this morning. Pt has wounds to bilateral thumbs that could be cold weather injury and to L foot. Pt has been off of his meds since leaving. Pt immediately requests to go to lower level of care, return to [place] or leave today. Pt here for medication stabilization and placement. Assessment What has happened this shift: Patient is awake in his room at the start of the shift. Paces the unit and requests a nicotine lozenge. Shortly thereafter the patient bites the lozenge and spits parts of it on the floor. He then cleans it up without issue. Patient also drops his coffee on the floor then requests a towel to clean it up which he does. Ritualistic/ repetitive behavior is noted. Speech is disorganized and fragmented but he is able to make his needs known verbally. Exit seeking by pushing on doors but is redirected. Spends time in his room and watching TV in common areas. Pushing on doors again in the afternoon but is redirected. Takes a nap in the late afternoon. S/I, H/I: Denies A/VH: Denies Sleep: None noted this shift ADL's: Independent Group attendance: No Were Meds taken: Yes Any med S/E: None observed or reported. Mental Status Exam Appearance: Thin, pale young male, somewhat disheveled wearing green unit scrubs. Eye contact: Good Behavior: Cooperative, ritualistic/ repetitive Speech: Fragmented, disorganized Mood: Good. Appears Euthymic Affect: Blunted with brightening Thought process: Fragmented, possible thought blocking Thought Content: Wanting to discharge. Asking for clothes for when he leaves. Cognition: A&O x3 to self, time and place Insight: Poor Judgment: Poor Interventions PRN's used: nicotine lozenge Therapeutic interventions: Provided clear and simple instructions, provided direction and encouragement regarding performance of ADLs, monitored behaviors and maintained clear boundaries, provided positive reinforcement for positive behaviors and redirection for negative behaviors, and maintained Q 15min safety checks. Restraints/seclusion/emergency medication: N/A Justification of Continued Inpatient Treatment: Patient continues to require a safe and supportive environment with medication adjustment and monitoring.
[2021-10-21] MEDS: mirtazapine 15mg tablet PO SCH (20:33)
[2021-10-21] MEDS: QUETIAPINE 150 MG TAB.SR.24H PO SCH (20:33)
--- NOTE | 2021-10-22 01:00 | NUR ---
Nursing Progress Note: [place] Legal hold: LPS Conserved Client on involuntary status for GD Report received from SREEDHAR Garrett with use of SBAR. Why they are here: [facility] LPS conservatorship for Schizophrenia. Pt had escaped from this unit 4-5 days earlier. Pt walked back into the emergency room this morning. Pt has wounds to bilateral thumbs that could be cold weather injury and to L foot. Pt has been off of his meds since leaving. Pt immediately requests to go to lower level of care, return to [place] or leave today. Pt here for medication stabilization and placement. Assessment What has happened this shift: Patient was found standing in room staring at the wall at the beginning of shift. Patient complained of tooth pain and asked for gauze to be placed into mouth. Morning nurse messaged doctor for order of gum numbing gel, still waiting for response. Patient was observed later laying down and had to be awaken in order to give night medications. Patient took night medications without issue and went back to bed. S/I, H/I: Denies A/VH: Denies Sleep: See sleep assessment ADL's: Independent Group attendance: No Were Meds taken: Yes Any med S/E: None observed or reported. Mental Status Exam Appearance: Thin, pale young male, somewhat disheveled wearing green unit scrubs. Eye contact: Good Behavior: Cooperative, ritualistic/ repetitive Speech: Fragmented, disorganized Mood: Good. Appears Euthymic Affect: Blunted with brightening Thought process: Fragmented, possible thought blocking Thought Content: Tooth pain Cognition: A&O x3 to self, time and place Insight: Poor Judgment: Poor Interventions PRN's used: Therapeutic interventions: Provided clear and simple instructions, provided direction and encouragement regarding performance of ADLs, monitored behaviors and maintained clear boundaries, provided positive reinforcement for positive behaviors and redirection for negative behaviors, and maintained Q 15min safety checks. Restraints/seclusion/emergency medication: N/A Justification of Continued Inpatient Treatment: Patient continues to require a safe and supportive environment with medication adjustment and monitoring.
[2021-10-22 08:35] VITALS: BP 109/80
[2021-10-22] MEDS: megestrol acetate 400mg/10ml UD oral suspension PO SCH (08:56)
[2021-10-22] MEDS: LORazepam 0.5 MG tablet PO SCH ×3 (08:56→20:17)
[2021-10-22] MEDS: naltrexone 50mg tablet PO SCH (08:56)
[2021-10-22] MEDS: haloperidol 5mg tablet PO SCH ×3 (08:56→17:45)
[2021-10-22] MEDS: acetaminophen 325mg tablet PO PRN (09:48)
--- NOTE | 2021-10-22 11:21 | NUR ---
Reassessment: Pt continues eating poorly, documented with occasional 25% PO intake though mostly refusing meals despite receiving appetite stimulant. ONS not appropriate at this time as pt continually refuses. Pt receiving shakes TIDWM and peanut butter jelly sandwich BIDLD as pt reportedly likes these foods however it doesn't appear pt is consuming them. Given pt not accepting of any nutrition intervention implemented throughout LOS, nutrition support is recommended at this time to meet estimated nutrient needs. Patient's weight remains stable with admit despite poor PO intake throughout LOS. LBM 10/20. Will continue to follow closely. Recommendations: 1. Continue regular diet 2. Peanut butter and jelly sandwich BIDLD; milkshake TIDWM 3. Encourage PO intake of meals/snacks 4. Continue routine appetite stimulant 5. Initiate nutrition support if MD agreeable and within POC given continued poor PO intake of meals 6. Routine bowel care 7. Weekly scaled weights Addendum: 10/22/21 at [address] Amended: Links added.
[2021-10-22] MEDS: NICOTINE POLACRILEX 2 MG LOZENGE BC PRN (14:36)
--- NOTE | 2021-10-22 16:22 | NUR ---
Nursing Progress Note: [facility] Legal hold: LPS Conserved Client on involuntary status for GD Report received from SREEDHAR Pierce with use of SBAR. Why they are here: [facility] LPS conservatorship for Schizophrenia. Pt had escaped from this unit 4-5 days earlier. Pt walked back into the emergency room this morning. Pt has wounds to bilateral thumbs that could be cold weather injury and to L foot. Pt has been off of his meds since leaving. Pt immediately requests to go to lower level of care, return to [place] or leave today. Pt here for medication stabilization and placement. Assessment What has happened this shift: Patient was asleep at change of shift and up before breakfast. Patient was a little frustrated today at times. He did push on the doors and calling out to his dad. He had just asked RN to help him find his dad. Patient did drop his lunch tray on the floor on purpose. Patient did eat a small amount today. Patient asking RN to go outside. Staffing was short today and unable to take patient's outside. Patient did take his medication because RN heard patient chewing his pills. Patient was talkative today but also had problems completing sentences. S/I, H/I: Denies A/VH: Denies Sleep: short nap today ADL's: Independent Group attendance: No Were Meds taken: Yes Any med S/E: None observed or reported. Mental Status Exam Appearance: Thin, pale young male, somewhat disheveled wearing green unit scrubs. Eye contact: Good Behavior: Cooperative, repetitive behaviors Speech: Fragmented, disorganized Mood: Euthymic Affect: Flat Thought process: Fragmented, possible thought blocking Thought Content: Wanting to discharge. Wanting to find his dad. Cognition: A&O x3 to self, time and place Insight: Poor Judgment: Poor Interventions PRN's used: nicotine lozenge Therapeutic interventions: Provided clear and simple instructions, provided direction and encouragement regarding performance of ADLs, monitored behaviors and maintained clear boundaries, provided positive reinforcement for positive behaviors and redirection for negative behaviors, and maintained Q 15min safety checks. Restraints/seclusion/emergency medication: N/A Justification of Continued Inpatient Treatment: Patient continues to require a safe and supportive environment with medication adjustment and monitoring.
[2021-10-22] MEDS: atorvastatin 20mg tablet PO SCH (17:45)
[2021-10-22] MEDS: sertraline 50mg tablet PO SCH (17:46)
[2021-10-22 19:00] VITALS: BP 109/73
--- NOTE | 2021-10-22 19:07 | NUR ---
RC'D REPORT AND ASSUMED CARE
[2021-10-22] MEDS: mirtazapine 15mg tablet PO SCH (20:16)
[2021-10-22] MEDS: QUETIAPINE 150 MG TAB.SR.24H PO SCH (20:22)
--- NOTE | 2021-10-22 23:05 | NUR ---
Nursing Progress Note: [facility] Legal hold: LPS Conserved Client on involuntary status for GD Report received from Gerry LYONS
--- NOTE | 2021-10-22 23:08 | NUR ---
Nursing Progress Note: [facility] Legal hold: LPS Conserved Client on involuntary status for GD Report received from Gerry LYONS This Shift: Patient sleeping in room with door closed when I rounded after rc'g report. Did go to the community room for snack then immediately returned to his room and closed the door. Woke him to give his meds at night, crushed and in yogurt. Took most of his crushed meds, then was finished. Told me "no more" on the last small amt. Denied any pain and covered up with his blankets and turned his back to me. Discharge: No plan verbalized
[2021-10-23] MEDS: NICOTINE POLACRILEX 2 MG LOZENGE BC PRN ×2 (07:09→14:56)
[2021-10-23 07:41] VITALS: BP 114/79
[2021-10-23] MEDS: haloperidol 5mg tablet PO SCH ×3 (07:52→16:40)
[2021-10-23] MEDS: naltrexone 50mg tablet PO SCH (07:52)
[2021-10-23] MEDS: megestrol acetate 400mg/10ml UD oral suspension PO SCH (07:52)
[2021-10-23] MEDS: LORazepam 0.5 MG tablet PO SCH ×3 (07:52→21:01)
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
[2021-10-23] MEDS: atorvastatin 20mg tablet PO SCH (14:56)
[2021-10-23] MEDS: sertraline 50mg tablet PO SCH (14:56)
[2021-10-23] MEDS: acetaminophen 325mg tablet PO PRN (15:00)
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
--- NOTE | 2021-10-23 18:44 | NUR ---
Nursing Progress Note: Becky Legal hold: Voluntary Client on voluntary status for GD Report received from Gerry LYONS with use of ANTONIA Addendum: 10/24/21 at 0446 by Viridiana Nassar RN This Nursing Progress Note is for ritika Berrios
[2021-10-23 19:00] VITALS: BP 124/90
[2021-10-23] MEDS: QUETIAPINE 150 MG TAB.SR.24H PO SCH (21:01)
[2021-10-23] MEDS: mirtazapine 15mg tablet PO SCH (21:02)
--- NOTE | 2021-10-24 01:39 | NUR ---
Reason For Admit: Pt admitted to [facility] health 07/22/2021 on LPS conservatorship for Schizophrenia. Pt had escaped from this unit 4-5 days earlier. Pt walked back into the emergency room that morning with wounds to bilateral thumbs that could be cold weather injury and to L foot. Pt had been off of his meds since leaving. Pt immediately requests to go to lower level of care, return to [place] or leave today. Pt here for medication stabilization and placement.Why are they here: Pt admitted to [facility] today on LPS conservatorship for Schizophrenia. Pt had escaped from this unit 4-5 days earlier. Pt walked back into the emergency room that morning with wounds to bilateral thumbs that could be cold weather injury and to L foot. He had been off of his meds since leaving. Pt requested to go to lower level of care, return to [place] or leave today. Pt was admitted for medication stabilization and placement. This Shift: Jozef was out of his room and ambulating in the hallways after I rc'd report, but not aggitated or confrontational at all. Did not interact with any of the other patients but got a pair of headphones on his head and stood, stockstill in the center of the hallway listening to music. Remained this way for approx 10 mins then went into his room. Gave his HS meds at 2100 crushed in yogurt but refused to take them because they 'tasted yucky". had another staff member assist with giving his meds.
[2021-10-24] MEDS: haloperidol 5mg tablet PO SCH ×3 (08:12→16:10)
[2021-10-24] MEDS: LORazepam 0.5 MG tablet PO SCH ×3 (08:12→21:06)
[2021-10-24] MEDS: naltrexone 50mg tablet PO SCH (08:12)
[2021-10-24] MEDS: NICOTINE POLACRILEX 2 MG LOZENGE BC PRN ×2 (08:14→11:44)
[2021-10-24] MEDS: megestrol acetate 400mg/10ml UD oral suspension PO SCH (08:14)
[2021-10-24] MEDS: acetaminophen 325mg tablet PO PRN (08:16)
[2021-10-24 09:21] VITALS: BP 109/64
--- NOTE | 2021-10-24 15:45 | NUR ---
Nursing Progress Note: Jozef Matthew Legal hold: LPS Conserved Client on involuntary status for GD Report received from CRN with use of SBAR Why are they here: Pt admitted to [place] for Behavioral health today on LPS conservatorship for Schizophrenia. Pt had escaped from this unit 4-5 days earlier. Pt walked back into the emergency room this morning. Pt has wounds to bilateral thumbs that could be cold weather injury and to L foot. Pt has been off of his meds since leaving. Pt immediately requests to go to lower level of care, return to [place] or leave today. Pt here for medication stabilization and placement. Assessment What has happened this shift: Pt. received pacing the bernard pressing call lights, he received his medication and 1:1 assessment completed. Pt. was complaint with his medications this shift. He spent most the shift pacing around the unit and hopping intermittently. He ate his meals in the MDR with cohorts, but doesnt engage socially with others. Pt. c/o ANDRADE and received Tylenol PRN. Pt. approached job specification writer requesting a pipe job specification writer reeducated pt. re nonsmoking policy. S/I, H/I: Denies both A/VH: Denies both Sleep: No naps this shift ADL's: Independent, prompting required Group attendance: No Were Meds taken: Yes Any med S/E: None observed or reported Mental Status Exam Appearance: Thin, pale young male in green unit scrubs Eye contact: Fair Behavior: Restless Speech: Fragmented, disorganized Mood: Obsessive Affect: Blunted Thought process: Fragmented with possible thought blocking Thought Content: Getting needs met. Cognition: A&O x3 to self, time and place Insight: Poor Judgment: Poor Interventions PRN's used: Nicotine lozenge, Tylenol Therapeutic interventions: Provided clear and simple instructions, provided direction and encouragement regarding performance of ADLs, monitored behaviors and maintained clear boundaries, provided positive reinforcement for positive behaviors and redirection for negative behaviors, and maintained Q 15min safety checks. Restraints/seclusion/emergency medication: None Justification of Continued Inpatient Treatment: Patient continues to require a safe and supportive environment with medication adjustment and monitoring.
[2021-10-24] MEDS: atorvastatin 20mg tablet PO SCH (16:10)
[2021-10-24] MEDS: sertraline 50mg tablet PO SCH (16:10)
[2021-10-24 20:35] VITALS: BP 121/83
[2021-10-24] MEDS: mirtazapine 15mg tablet PO SCH (21:06)
[2021-10-24] MEDS: QUETIAPINE 150 MG TAB.SR.24H PO SCH (21:06)
--- NOTE | 2021-10-25 02:28 | NUR ---
Nursing Progress Note: Legal hold: LPS Conserved Client on involuntary status for GD Report received from ELOY Garrett with use of SBAR Why are they here: Pt admitted to [place] for Behavioral health today on LPS conservatorship for Schizophrenia. Pt had escaped from this unit 4-5 days earlier. Pt walked back into the emergency room this morning. Pt has wounds to bilateral thumbs that could be cold weather injury and to L foot. Pt has been off of his meds since leaving. Pt immediately requests to go to lower level of care, return to [place] or leave today. Pt here for medication stabilization and placement. Assessment What has happened this shift: Patient was isolating in his room at shift change. He comes out once in a while to make requests, but with thought blocking, usually has a hard time making requests known, before he gives up and walks away. Patient is restless and can't stay in one place long enough to watch TV or read a book. There is nothing he likes to do that can keep his attention. Patient did not check doors tonight or attempt to elope. He was compliant with HS medications in apple sauce. He dropped the cut, but not before he took his meds. S/I, H/I: Denies A/VH: Denies Sleep: See sleep assessment ADL's: Independent, prompting required Group attendance: N/A Were Meds taken: Yes Any med S/E: None observed or reported Mental Status Exam Appearance: Thin, pale young male in green unit scrubs Eye contact: Fair Behavior: Restless, bored Speech: Fragmented, disorganized Mood: Obsessive Affect: Blunted Thought process: Fragmented with possible thought blocking Thought Content: Getting needs met. Cognition: A&O x3 to self, time and place Insight: Poor Judgment: Poor Interventions PRN's used: Therapeutic interventions: Provided clear and simple instructions, provided direction and encouragement regarding performance of ADLs, monitored behaviors and maintained clear boundaries, provided positive reinforcement for positive behaviors and redirection for negative behaviors, and maintained Q 15min safety checks. Restraints/seclusion/emergency medication: Justification of Continued Inpatient Treatment: Patient continues to require a safe and supportive environment with medication adjustment and monitoring.
[2021-10-25] MEDS: LORazepam 0.5 MG tablet PO SCH ×3 (07:05→21:04)
[2021-10-25] MEDS: naltrexone 50mg tablet PO SCH (07:06)
[2021-10-25] MEDS: haloperidol 5mg tablet PO SCH ×3 (07:07→17:13)
[2021-10-25] MEDS: megestrol acetate 400mg/10ml UD oral suspension PO SCH (07:08)
[2021-10-25] MEDS: NICOTINE POLACRILEX 2 MG LOZENGE BC PRN ×3 (07:37→14:14)
[2021-10-25 08:00] VITALS: BP 111/73
--- NOTE | 2021-10-25 09:51 | NUR ---
Reassessment: Pt continues to eat poorly, documented with 0-25% PO intake of meals though still receiving appetite stimulant. Given pt's continuous poor PO intake and history of not accepting any nutrition intervention implemented throughout LOS, nutrition support is recommended at this time to meet estimated nutrient needs. Patient's weight remains stable with admit despite poor PO intake throughout LOS. LBM 10/23. Will continue to follow closely. Recommendations: 1. Continue regular diet 2. Peanut butter and jelly sandwich BIDLD; milkshake TIDWM 3. Encourage PO intake of meals/snacks 4. Continue routine appetite stimulant 5. Initiate nutrition support if MD agreeable and within POC given continued poor PO intake of meals 6. Routine bowel care 7. Weekly scaled weights Addendum: 10/25/21 at [address] Amended: Links added. Addendum: 10/25/21 at [address] I have reviewed and agree with note by Anesthesiologist Assistant. CALI Mathew
[2021-10-25] MEDS: acetaminophen 325mg tablet PO PRN ×2 (10:18→14:31)
--- NOTE | 2021-10-25 11:12 | NUR ---
Pt. attended group today. Today we did an Art Expression where they had to draw an picture of a symbol that would represent where they are at at this time. Pt. yen yellow phelps and was able to share that these were phelps and that yellow represented happiness and hope. Once he was done with his picture he was up and down out of his seat and walking all over the room and in and out of the room. His overall demeanor was pleasant. He would at times interrupt this Rolling Attendant while speaking but was amenable to be redirected for the most part. He only shared very minimally when he shared, due to this this Rolling Attendant could not evaluate his thought content or thought process fully. Aleksandra Fuentes LCSW
--- NOTE | 2021-10-25 13:15 | NUR ---
F/u: Patient's poor nutrition status has been d/w PA. Addendum: 10/25/21 at [address] Amended: Links added.
--- NOTE | 2021-10-25 16:22 | NUR ---
Seclusion: Pt threw the portable video game into the nurse station and broke it. Pt then grabbed the isolation keys off the desk and refused to give them back. Pt taken to the observation room for seclusion.
[2021-10-25] MEDS: sertraline 50mg tablet PO SCH (17:13)
[2021-10-25] MEDS: atorvastatin 20mg tablet PO SCH (17:13)
--- NOTE | 2021-10-25 17:23 | NUR ---
Nursing Progress Note: Jozef Legal hold: LPS Conserved Client on involuntary status for GD Report received from ELOY Alexis with use of SBAR Why are they here: Pt admitted to [place] for Behavioral health today on LPS conservatorship for Schizophrenia. Pt had escaped from this unit 4-5 days earlier. Pt walked back into the emergency room this morning. Pt has wounds to bilateral thumbs that could be cold weather injury and to L foot. Pt has been off of his meds since leaving. Pt immediately requests to go to lower level of care, return to [place] or leave today. Pt here for medication stabilization and placement. Assessment What has happened this shift: Patient received sleeping in bed at change of shift. He was awoken to join with peers in the community room for breakfast. Patient approached this journalists and other writers endorsing that he is having some stress this morning. He was receptive to scheduled medications. Patient was observed walking through the unit throughout the morning. He received a shower on this shift, requiring assistance from staff to ensure that he bathed completely. Patient observed kicking the exit door shortly after, requiring redirection from staff. He approached this journalists and other writers asking for a dope pipe, noted making nonsensical statements. He continues to deny all MH symptoms. Does not appear to be responding to internal stimuli. Patient endorsed that he wants to go outside and get some fresh air today. He participated on the patio with peers and staff, noted behaving appropriately. Shortly after returning to the unit patient was observed attempting to open exit doors by sliding playing cards into the lock. He continues to present as restless, anxious, and impulsive. Patient was noted to have thrown the hospital provided Nintendo onto the ground and breaking it later in the shift. Patient became upset with staff and was observed standing inside the nurses station yelling at staff despite being directed to exit nurses station. Patient then began shoving and throwing his fists at the charge nurse. He was placed in the seclusion room at approximately 1626 for his behaviors. Patient removed from seclusion at approximately 1719. He was active on the unit throughout this shift. He joined for all meal/snacks in the group room with peers. S/I, H/I: Denies A/VH: Denies. Does not appear to be responding to internal stimuli. Sleep: Patient slept 7 hours last night per NOC shift. No naps noted on this shift. ADL's: Independent, prompting required Group attendance: No Were Meds taken: Yes Any med S/E: None observed or reported Mental Status Exam Appearance: Clean, showered on this shift. Thin, pale young male in green unit scrubs. Eye contact: Fair Behavior: Restless, bored Speech: Fragmented, disorganized Mood: Having some stress Affect: Blunted Thought process: Fragmented with possible thought blocking Thought Content: Getting needs met. Perseveration on discharge. Cognition: A&O x3 (not to event) Insight: Poor Judgment: Poor Interventions PRN's used: Nicotine Lozenge, Milk of Magnesia Therapeutic interventions: Provided clear and simple instructions, provided direction and encouragement regarding performance of ADLs, monitored behaviors and maintained clear boundaries, provided positive reinforcement for positive behaviors and redirection for negative behaviors, and maintained Q 15min safety checks. Restraints/seclusion/emergency medication: Seclusion Justification of Continued Inpatient Treatment: Patient continues to require a safe and supportive environment with medication adjustment and monitoring.
[2021-10-25 19:00] VITALS: BP 98/67
[2021-10-25] MEDS: mirtazapine 15mg tablet PO SCH (21:04)
[2021-10-25] MEDS: QUETIAPINE 150 MG TAB.SR.24H PO SCH (21:04)
[2021-10-26] MEDS: acetaminophen 325mg tablet PO PRN ×3 (00:38→20:36)
[2021-10-26] MEDS: benzocaine (Anbesol) 12ml bottle MM PRN (02:41)
--- NOTE | 2021-10-26 04:29 | NUR ---
Nursing Progress Note: Jozef Legal hold: LPS Conserved Client on involuntary status for GD Report received from ELOY Garrett with use of SBAR Why are they here: Pt admitted to [place] for Behavioral health today on LPS conservatorship for Schizophrenia. Pt had escaped from this unit 4-5 days earlier. Pt walked back into the emergency room this morning. Pt has wounds to bilateral thumbs that could be cold weather injury and to L foot. Pt has been off of his meds since leaving. Pt immediately requests to go to lower level of care, return to [place] or leave today. Pt here for medication stabilization and placement. Assessment What has happened this shift: Patient in his room sleeping at the beginning of shift. Pleasant and cooperative with care; compliant with medication. PRN Tylenol and Anbesol provided for tooth pain. Patient denies SI, HI, A/VH. He was provided HS snack in his room. Patient periodically comes out of his room to make needs known and promptly returns to bed; observed sleeping and does not appear to be having difficulty at this time. S/I, H/I: Denies A/VH: Denies Sleep: Refer to sleep assessment ADL's: Independent, prompting required Group attendance: NA Were Meds taken: Yes Any med S/E: None observed or reported Mental Status Exam Appearance: Pale, redness around his eyes, appropriately dressed in green unit attire Eye contact: Fair Behavior: Pleasant and cooperative, mostly isolative to room, social with staff Speech: Fragmented, disorganized Mood: Bored Affect: Blunted Thought process: Fragmented with possible thought blocking Thought Content: Meeting needs; tooth pain Cognition: A&O x3 (not to event) Insight: Poor Judgment: Poor Interventions PRN's used: Tylenol and Anbesol Therapeutic interventions: Provided clear and simple instructions, provided direction and encouragement regarding performance of ADLs, monitored behaviors and maintained clear boundaries, provided positive reinforcement for positive behaviors and redirection for negative behaviors, and maintained Q 15min safety checks. Restraints/seclusion/emergency medication: None Justification of Continued Inpatient Treatment: Patient continues to require a safe and supportive environment with medication adjustment and monitoring.
[2021-10-26] MEDS: haloperidol 5mg tablet PO SCH ×3 (07:34→16:32)
[2021-10-26] MEDS: megestrol acetate 400mg/10ml UD oral suspension PO SCH (07:34)
[2021-10-26] MEDS: naltrexone 50mg tablet PO SCH (07:34)
[2021-10-26] MEDS: LORazepam 0.5 MG tablet PO SCH ×3 (07:34→20:34)
[2021-10-26] MEDS: mag hydrox/Alum hydrox/simeth 30ml oral suspension PO PRN (07:44)
[2021-10-26 08:00] VITALS: BP 115/88
[2021-10-26] MEDS: NICOTINE POLACRILEX 2 MG LOZENGE BC PRN ×2 (09:14→16:33)
--- NOTE | 2021-10-26 14:25 | NUR ---
Nursing Progress Note: Jozef Legal hold: LPS Conserved Client on involuntary status for GD Report received from NOC CHARGE, RN with use of SBAR Why are they here: Pt admitted to [place] for Behavioral health today on LPS conservatorship for Schizophrenia. Pt had escaped from this unit 4-5 days earlier. Pt walked back into the emergency room this morning. Pt has wounds to bilateral thumbs that could be cold weather injury and to L foot. Pt has been off of his meds since leaving. Pt immediately requests to go to lower level of care, return to [place] or leave today. Pt here for medication stabilization and placement. Assessment What has happened this shift: Patient in his room sleeping at the beginning of shift. Anxious, demanding with care; compliant with medication but dropped the liquid medications after taken to the floor. PRN Tylenol provided for tooth pain. Patient denies SI, HI, A/VH. He was provided AM snack. Patient periodically comes up to me asking for pizza, chocolate chip cookies. While observing in the community room, flipped lights off. Given nicotine lozenge prn, patient needed redirection by many staff members today. After snack, and lunch patient observed in room resting currently pacing the hauls with head phones on. S/I, H/I: Denies A/VH: Denies Sleep: Refer to sleep assessment ADL's: Independent, prompting required Group attendance: NA Were Meds taken: Yes Any med S/E: None observed or reported Mental Status Exam Appearance: Pale, redness around his eyes, appropriately dressed in green unit attire Eye contact: Fair Behavior: Testing boundaries today, social with staff Speech: Fragmented, disorganized Mood: Bored Affect: Blunted Thought process: Fragmented with possible thought blocking Thought Content: Meeting needs; tooth pain Cognition: A&O x3 (not to event) Insight: Poor Judgment: Poor Interventions PRN's used: Tylenol Therapeutic interventions: Provided clear and simple instructions, provided direction and encouragement regarding performance of ADLs, monitored behaviors and maintained clear boundaries, provided positive reinforcement for positive behaviors and redirection for negative behaviors, and maintained Q 15min safety checks. Restraints/seclusion/emergency medication: None Justification of Continued Inpatient Treatment: Patient continues to require a safe and supportive environment with medication adjustment and monitoring.
[2021-10-26] MEDS: sertraline 50mg tablet PO SCH (16:32)
[2021-10-26] MEDS: atorvastatin 20mg tablet PO SCH (16:32)
[2021-10-26 19:50] VITALS: BP 110/69
[2021-10-26] MEDS: QUETIAPINE 150 MG TAB.SR.24H PO SCH (20:34)
[2021-10-26] MEDS: mirtazapine 15mg tablet PO SCH (20:35)
--- NOTE | 2021-10-27 04:25 | NUR ---
Nursing Progress Note: Legal hold: LPS Conserved Client on involuntary status for GD Report received from ELOY Gonsalves with use of SBAR Why are they here: Pt admitted to [place] for Behavioral health today on LPS conservatorship for Schizophrenia. Pt had escaped from this unit 4-5 days earlier. Pt walked back into the emergency room this morning. Pt has wounds to bilateral thumbs that could be cold weather injury and to L foot. Pt has been off of his meds since leaving. Pt immediately requests to go to lower level of care, return to [place] or leave today. Pt here for medication stabilization and placement. Assessment What has happened this shift: Patient laying in bed at the beginning of shift. Pleasant and cooperative with care; compliant with medication. PRN Tylenol for tooth pain. Patient denies SI, HI, A/VH. Patient active on the unit and making needs known this shift. He was provided HS snack and is observed sleeping; sleep appears slightly broken this shift. S/I, H/I: Denies A/VH: Denies Sleep: Refer to sleep assessment ADL's: Independent, prompting required Group attendance: NA Were Meds taken: Yes Any med S/E: None observed or reported Mental Status Exam Appearance: Pale, redness around his eyes, appropriately dressed in green unit attire Eye contact: Fair Behavior: Pleasant and cooperative, social with staff Speech: Fragmented, disorganized Mood: "Good" Affect: Blunted Thought process: Fragmented with possible thought blocking Thought Content: Meeting needs; tooth pain Cognition: A&O x3 (not to event) Insight: Poor Judgment: Poor Interventions PRN's used: Tylenol Therapeutic interventions: Provided clear and simple instructions, provided direction and encouragement regarding performance of ADLs, monitored behaviors and maintained clear boundaries, provided positive reinforcement for positive behaviors and redirection for negative behaviors, and maintained Q 15min safety checks. Restraints/seclusion/emergency medication: None Justification of Continued Inpatient Treatment: Patient continues to require a safe and supportive environment with medication adjustment and monitoring.
[2021-10-27] MEDS: NICOTINE POLACRILEX 2 MG LOZENGE BC PRN ×2 (06:31→18:03)
[2021-10-27] MEDS: haloperidol 5mg tablet PO SCH ×3 (07:26→16:47)
[2021-10-27] MEDS: LORazepam 0.5 MG tablet PO SCH ×3 (07:26→20:11)
[2021-10-27] MEDS: naltrexone 50mg tablet PO SCH (07:27)
[2021-10-27] MEDS: megestrol acetate 400mg/10ml UD oral suspension PO SCH (07:28)
[2021-10-27 07:49] VITALS: BP 128/86
--- NOTE | 2021-10-27 12:14 | NUR ---
PLACEMENT UPDATE [facility] is still seeking IMD level of care. Clients packet is in the queue at [facility], [facility], [facility], and [facility]. Client has been declined at [facility], [facility], and [facility]. JAYCEE [facility]
[2021-10-27] MEDS: atorvastatin 20mg tablet PO SCH (16:40)
[2021-10-27] MEDS: sertraline 50mg tablet PO SCH (16:40)
[2021-10-27] MEDS: benzocaine (Anbesol) 12ml bottle MM PRN (17:42)
--- NOTE | 2021-10-27 18:11 | NUR ---
Nursing Progress Note: VIVIANA Legal hold: 5250 Expires 10/29 Client on involuntary status for DTS. Report received from SREEDHAR Alexis with use of SBAR Why they are here: Pt here on a 5150 for DTS for reporting that he had thrown his meds away due to impulse/urges to take them all in an attempt to overdose Assessment What has happened this shift: RN received pt. awake and pacing halls at start of shift. Pt. took all medications and ate 50% of his breakfast. Pt. socially withdrawn. 1:1 done in Rec Room. Pt. denies all psychiatric symptoms and states, I want to be discharged. Pt. informed of process for discharged but has little insight. Pt. had minimal ritualistic behaviors today. Pt went to group and was observed coloring. Pt. watching TV in Rec Room. In afternoon pt. withdrew to his room coming out for snacks and drinks. S/I, H/I: Denies A/VH: Denies Sleep: Pt. slept 8.25 hrs on NOC shift and napped approx. 1 hr on day shift. ADL's: Independent Group attendance: Yes Were Meds taken: Yes Any med S/E: None reported or observed. Mental Status Exam Appearance: Disheveled but clean. Wearing greens scrubs. Eye contact: Good Behavior: Cooperative, attending group, socially withdrawn. Speech: WNL. Mood: Euthymic Affect: Congruent with mood. Thought process: Linear Thought Content: Discharge focused. Cognition: A/O x4 Insight: Good Judgment: Good Interventions PRN's used: None Therapeutic interventions: 1:1 assessment, therapeutic conversation, active listening, encouraged group attendance and participation in unit activities, medication administration/education/monitoring, provided distraction, direction, positive reinforcement, and Q 15 minute safety checks. Restraints/seclusion/emergency medication: N/A Justification of Continued Inpatient Treatment: Pt in need of crisis interruption and stabilization with medication adjustment and monitoring in a safe and therapeutic environment.
--- NOTE | 2021-10-27 18:13 | NUR ---
NOTE BELOW CHARTED ON WRONG PT.
--- NOTE | 2021-10-27 18:16 | NUR ---
Legal hold: LPS Conserved Client on involuntary status for GD Report received from ELOY Alexis with use of SBAR Why are they here: [facility] LPS conservatorship for Schizophrenia. Pt had escaped from this unit 4-5 days earlier. Pt walked back into the emergency room this morning. Pt has wounds to bilateral thumbs that could be cold weather injury and to L foot. Pt has been off of his meds since leaving. Pt immediately requests to go to lower level of care, return to [place] or leave today. Pt here for medication stabilization and placement.Assessment What has happened this shift: RN received pt. awake and pacing halls at start of shift. Pt. took all medications and ate 50% of his breakfast. Pt. socially withdrawn. 1:1 done in Rec Room. Pt. denies all psychiatric symptoms and states, I want to be discharged. Pt. informed of process for discharged but has little insight. Pt. had minimal ritualistic behaviors today. Pt went to group and was observed coloring. Pt. watching TV in Rec Room. In afternoon pt. withdrew to his room coming out for snacks and drinks. S/I, H/I: Denies A/VH: Denies Sleep: Pt. slept 8.25 hrs on NOC shift and napped approx. 1 hr on day shift. ADL's: Independent Group attendance: Yes Were Meds taken: Yes Any med S/E: None reported or observed. Mental Status Exam Appearance: Disheveled but clean. Wearing greens scrubs. Eye contact: Good Behavior: Cooperative, attending group, socially withdrawn. Speech: Start/stop sentences. Mood: Euthymic Affect: Congruent with mood. Thought process: Some thought blocking. Thought Content: Discharge focused. Cognition: A/O x4 Insight: Poor Judgment: Poor Interventions PRN's used: Nicotine lozenges. Therapeutic interventions: Provided clear and simple instructions, provided direction and encouragement regarding performance of ADLs, monitored behaviors and maintained clear boundaries, provided positive reinforcement for positive behaviors and redirection for negative behaviors, and maintained Q 15min safety checks. Restraints/seclusion/emergency medication: None Justification of Continued Inpatient Treatment: Patient continues to require a safe and supportive environment with medication adjustment and monitoring.
[2021-10-27] MEDS: acetaminophen 325mg tablet PO PRN (18:50)
[2021-10-27 19:56] VITALS: BP 120/72
[2021-10-27] MEDS: mirtazapine 15mg tablet PO SCH (20:11)
[2021-10-27] MEDS: QUETIAPINE 150 MG TAB.SR.24H PO SCH (20:11)
--- NOTE | 2021-10-28 04:52 | NUR ---
Nursing Progress Note: Legal hold: LPS Conserved Client on involuntary status for GD Report received from ELOY Berkowitz with use of SBAR Why are they here: Pt admitted to [facility] today on LPS conservatorship for Schizophrenia. Pt had escaped from this unit 4-5 days earlier. Pt walked back into the emergency room this morning. Pt has wounds to bilateral thumbs that could be cold weather injury and to L foot. Pt has been off of his meds since leaving. Pt immediately requests to go to lower level of care, return to [place] or leave today. Pt here for medication stabilization and placement. Assessment What has happened this shift: Patient awake in his room at the beginning of shift. Pleasant and cooperative with care; compliant with medication. PRN Tylenol and Anbesol provided for tooth pain. Required some redirection but cooperative. Patient requested pencil and paper and briefly observed in the group room writing/drawing. He participated in HS snack and continued to briefly walk the unit and socialize with staff. Observed sleeping and does not appear to be having difficulty. S/I, H/I: Denies A/VH: Denies Sleep: Refer to sleep assessment ADL's: Independent, prompting required Group attendance: NA Were Meds taken: Yes Any med S/E: None observed or reported Mental Status Exam Appearance: Pale, redness around his eyes, appropriately dressed in green unit attire Eye contact: Fair Behavior: Pleasant and cooperative, social with staff Speech: Fragmented, disorganized Mood: "Good" Affect: Blunted Thought process: Fragmented with possible thought blocking Thought Content: Meeting needs; tooth pain Cognition: A&O x3 (not to event) Insight: Poor Judgment: Poor Interventions PRN's used: Tylenol and Anbesol Therapeutic interventions: Provided clear and simple instructions, provided direction and encouragement regarding performance of ADLs, monitored behaviors and maintained clear boundaries, provided positive reinforcement for positive behaviors and redirection for negative behaviors, and maintained Q 15min safety checks. Restraints/seclusion/emergency medication: None Justification of Continued Inpatient Treatment: Patient continues to require a safe and supportive environment with medication adjustment and monitoring.
[2021-10-28] MEDS: naltrexone 50mg tablet PO SCH (07:12)
[2021-10-28] MEDS: haloperidol 5mg tablet PO SCH ×3 (07:12→16:03)
[2021-10-28] MEDS: megestrol acetate 400mg/10ml UD oral suspension PO SCH (07:12)
[2021-10-28] MEDS: LORazepam 0.5 MG tablet PO SCH ×3 (07:12→20:32)
[2021-10-28] MEDS: NICOTINE POLACRILEX 2 MG LOZENGE BC PRN ×2 (07:13→15:01)
[2021-10-28 08:00] VITALS: BP 126/95
[2021-10-28] MEDS: acetaminophen 325mg tablet PO PRN ×2 (09:43→20:32)
--- NOTE | 2021-10-28 12:29 | NUR ---
Reassessment: Pt with a slight improvement in PO intake though overall eating poorly with mostly 25% PO intake of meals, however pt does refuse parts of meal trays per documentation. Noted pt accepting of snacks at this time per informatics physician liaison. Recommend continuing to encourage PO intake and offer snacks to optimize PO intake. Pt continues receiving appetite stimulant. LBM 10/27. Will continue to follow closely. Recommendations: 1. Continue regular diet 2. Peanut butter and jelly sandwich BIDLD; milkshake TIDWM 3. Encourage PO intake of meals/snacks 4. Continue routine appetite stimulant 5. Initiate nutrition support if MD agreeable and within POC given continued poor PO intake of meals 6. Routine bowel care 7. Weekly scaled weights Addendum: 10/28/21 at [address] Amended: Links added.
--- NOTE | 2021-10-28 12:39 | NUR ---
Reassessment: Pt with a slight improvement in PO intake though overall eating poorly with mostly 25% PO intake of meals, however pt does refuse parts of meal trays per documentation. Noted pt accepting of snacks at this time per firer tunnel kiln. Recommend continuing to encourage PO intake and offer snacks to optimize PO intake. Pt continues receiving appetite stimulant. LBM 10/27. Will continue to follow closely. Recommendations: 1. Continue regular diet 2. Peanut butter and jelly sandwich BIDLD; milkshake TIDWM 3. Encourage PO intake of meals/snacks 4. Continue routine appetite stimulant 5. Initiate nutrition support if MD agreeable and within POC given continued poor PO intake of meals 6. Routine bowel care 7. Weekly scaled weights Addendum: 10/28/21 at [address] Amended: Links added.
[2021-10-28] MEDS: atorvastatin 20mg tablet PO SCH (15:59)
[2021-10-28] MEDS: sertraline 50mg tablet PO SCH (15:59)
--- NOTE | 2021-10-28 17:19 | NUR ---
Nursing Progress Notes Legal hold: LPS Conserved Client on involuntary status for GD Report received from ELOY Sanchez with use of SBAR Why are they here: Pt admitted to [facility] today on LPS conservatorship for Schizophrenia. Pt had escaped from this unit 4-5 days earlier. Pt walked back into the emergency room this morning. Pt has wounds to bilateral thumbs that could be cold weather injury and to L foot. Pt has been off of his meds since leaving. Pt immediately requests to go to lower level of care, return to [place] or leave today. Pt here for medication stabilization and placement. Assessment What has happened this shift: RN received pt. awake and pacing bernard at beginning of shift. Pt. took AM medications and ate 50% of his breakfast. Pt. took a pancake from another patients tray without permission. When pt. corrected, pt. states, Im sorry. Pt. socializes minimally with peers. Pt. joking around with staff at times. Pt. called his conservator and reported his name as Casper Martinez. Pt. denies all psych symptoms. Pt. gives minimal information during 1:1 interview. Pt. states, I want to get out of here, do you know when I can go?. Pt. c/o of bilateral, lower tooth pain and given Tylenol with minimal effect. Pt. requested something more and given Ambisol ointment with good effect. RN called pt.s conservator and requested a dentist appointment be made, conservator Aleksandra Alcazar reports that a dentist appointment has been made for the pt. for Tuesday 10/31 @ 12:45pm. Pt. watched TV in Rec Room in the afternoon. Pt. 4 cookies at snack time. Pt. in a playful mood in the afternoon, doing jumps and dance moves in the hallway. S/I, H/I: Denies A/VH: Denies Sleep: Pt. slept 8 hrs on NOC shift and napped approx. 2 hr on day shift. ADL's: Independent Group attendance: No Were Meds taken: Yes Any med S/E: None reported or observed. Mental Status Exam Appearance: Disheveled but clean. Wearing greens scrubs. Eye contact: WNL Behavior: Cooperative but bored. Speech: Start/stop sentences. Mood: Euthymic Affect: Congruent with mood. Thought process: Some thought blocking. Thought Content: Discharge focused. Cognition: A/O x4 Insight: Poor Judgment: Poor Interventions PRN's used: Nicotine lozenges. Therapeutic interventions: Provided clear and simple instructions, provided direction and encouragement regarding performance of ADLs, monitored behaviors and maintained clear boundaries, provided positive reinforcement for positive behaviors and redirection for negative behaviors, and maintained Q 15min safety checks. Restraints/seclusion/emergency medication: None Justification of Continued Inpatient Treatment: Patient continues to require a safe and supportive environment with medication adjustment and monitoring.
[2021-10-28 19:03] VITALS: BP 117/71
[2021-10-28] MEDS: mirtazapine 15mg tablet PO SCH (20:32)
[2021-10-28] MEDS: QUETIAPINE 150 MG TAB.SR.24H PO SCH (20:32)
[2021-10-28] MEDS: benzocaine (Anbesol) 12ml bottle MM PRN (20:32)
--- NOTE | 2021-10-29 05:14 | NUR ---
Nursing Progress Note: Legal hold: LPS Conserved Client on involuntary status for GD Report received from ELOY Berkowitz with use of SBAR Why are they here: Pt admitted to [facility] today on LPS conservatorship for Schizophrenia. Pt had escaped from this unit 4-5 days earlier. Pt walked back into the emergency room this morning. Pt has wounds to bilateral thumbs that could be cold weather injury and to L foot. Pt has been off of his meds since leaving. Pt immediately requests to go to lower level of care, return to [place] or leave today. Pt here for medication stabilization and placement. Assessment What has happened this shift: Patient was found sleeping at beginning of shift. Patient got up periodically to ask for snacks and pace around hallway. Patient started bouncing around unit complaining of tooth pain . Patient was given Tylenol and Anbesol for tooth pain. Patient took all night medications and got went to bed. Patient got up multiple times through out the night asking for snacks. S/I, H/I: Denies A/VH: Denies Sleep: See sleep assessment ADL's: Independent, prompting required Group attendance: NA Were Meds taken: Yes Any med S/E: None observed or reported Mental Status Exam Appearance: Pale, redness around his eyes, appropriately dressed in green unit attire Eye contact: Fair Behavior: Pleasant and cooperative, social with staff Speech: Fragmented, disorganized Mood: "Good" Affect: Blunted Thought process: Fragmented with possible thought blocking Thought Content: tooth pain and snacks Cognition: A&O x3 (not to event) Insight: Poor Judgment: Poor Interventions PRN's used: Tylenol and Anbesol Therapeutic interventions: Provided clear and simple instructions, provided direction and encouragement regarding performance of ADLs, monitored behaviors and maintained clear boundaries, provided positive reinforcement for positive behaviors and redirection for negative behaviors, and maintained Q 15min safety checks. Restraints/seclusion/emergency medication: None Justification of Continued Inpatient Treatment: Patient continues to require a safe and supportive environment
[2021-10-29] MEDS: NICOTINE POLACRILEX 2 MG LOZENGE BC PRN ×4 (06:43→17:30)
[2021-10-29] MEDS: naltrexone 50mg tablet PO SCH (07:06)
[2021-10-29] MEDS: megestrol acetate 400mg/10ml UD oral suspension PO SCH (07:07)
[2021-10-29] MEDS: haloperidol 5mg tablet PO SCH ×3 (07:07→16:23)
[2021-10-29] MEDS: LORazepam 0.5 MG tablet PO SCH ×3 (07:07→19:46)
[2021-10-29 07:12] VITALS: BP 106/68
[2021-10-29] MEDS: sertraline 50mg tablet PO SCH (16:23)
[2021-10-29] MEDS: atorvastatin 20mg tablet PO SCH (16:23)
--- NOTE | 2021-10-29 17:01 | NUR ---
Nursing Progress Notes Legal hold: LPS Conserved Client on involuntary status for GD Report received from Tere Chisholm RN with use of SBAR Why are they here: [facility] LPS conservatorship for Schizophrenia. Pt had escaped from this unit 4-5 days earlier. Pt walked back into the emergency room this morning. Pt has wounds to bilateral thumbs that could be cold weather injury and to L foot. Pt has been off of his meds since leaving. Pt immediately requests to go to lower level of care, return to [place] or leave today. Pt here for medication stabilization and placement. Assessment What has happened this shift: RN received pt. awake and pacing halls at the start of shift. Pt. took all medications and ate his muffin at breakfast. Pt. asking for other patients muffins and when told no, pt. became upset and pushed on exit door. Pt. was redirected and initially followed redirection, but then attempted again to elope and had to be escorted back to his room. Pt. is angry and swearing at staff. Pt. later apologized and stated, I wont do it again. Pt. ate his PBJ sandwich and went to sleep after lunch. Pt. calm and withdrawn in the afternoon making art and resting in bed. S/I, H/I: Denies A/VH: Denies Sleep: Pt. slept 7.25 hrs on NOC shift and napped approx. 2 hr on day shift. ADL's: Independent Group attendance: No Were Meds taken: Yes Any med S/E: None reported or observed. Mental Status Exam Appearance: Disheveled but clean. Wearing greens scrubs. Eye contact: WNL Behavior: Mischievous, needing redirection in the AM. Cooperative in the afternoon. Socially withdrawn, isolating to his room. Speech: Start/stop sentences. Poverty of speech. Mood: Anxious, agitated at times. Euthymic in the afternoon. Affect: Blunted Thought process: Some thought blocking. Thought Content: Discharge focused. Cognition: A/O x4 Insight: Poor Judgment: Poor Interventions PRN's used: Nicotine lozenges. Therapeutic interventions: Provided clear and simple instructions, provided direction and encouragement regarding performance of ADLs, monitored behaviors and maintained clear boundaries, provided positive reinforcement for positive behaviors and redirection for negative behaviors, and maintained Q 15min safety checks. Restraints/seclusion/emergency medication: None Justification of Continued Inpatient Treatment: Patient continues to require a safe and supportive environment with medication adjustment and monitoring.
[2021-10-29 19:00] VITALS: BP 106/80
[2021-10-29] MEDS: acetaminophen 325mg tablet PO PRN (19:46)
[2021-10-29] MEDS: QUETIAPINE 150 MG TAB.SR.24H PO SCH (19:46)
[2021-10-29] MEDS: mirtazapine 15mg tablet PO SCH (19:47)
--- NOTE | 2021-10-30 00:54 | NUR ---
Nursing Progress Note: Legal hold: LPS Conserved Client on involuntary status for GD Report received from ELOY Berkowitz with use of SBAR Why are they here: Pt admitted to [facility] for [facility] today on LPS conservatorship for Schizophrenia. Pt had escaped from this unit 4-5 days earlier. Pt walked back into the emergency room this morning. Pt has wounds to bilateral thumbs that could be cold weather injury and to L foot. Pt has been off of his meds since leaving. Pt immediately requests to go to lower level of care, return to [place] or leave today. Pt here for medication stabilization and placement. Assessment What has happened this shift: Patient awake in his room at the beginning of shift. Pleasant and cooperative with care; some redirection required this shift. Compliant with medication; PRN Tylenol and Anbesol for tooth pain provided. He participated in HS snack and observed walking the unit prior to bed; sleeping and does not appear to be having difficulty. S/I, H/I: Denies A/VH: Denies Sleep: Refer to sleep assessment ADL's: Independent, prompting required Group attendance: NA Were Meds taken: Yes Any med S/E: None observed or reported Mental Status Exam Appearance: Pale, redness around his eyes, appropriately dressed in green unit attire Eye contact: Fair Behavior: Pleasant and cooperative, social with staff Speech: Fragmented, disorganized Mood: Bored Affect: Blunted Thought process: Fragmented with possible thought blocking Thought Content: Meeting needs; tooth pain Cognition: A&O x3 (not to event) Insight: Poor Judgment: Poor Interventions PRN's used: Tylenol and Anbesol Therapeutic interventions: Provided clear and simple instructions, provided direction and encouragement regarding performance of ADLs, monitored behaviors and maintained clear boundaries, provided positive reinforcement for positive behaviors and redirection for negative behaviors, and maintained Q 15min safety checks. Restraints/seclusion/emergency medication: None Justification of Continued Inpatient Treatment: Patient continues to require a safe and supportive environment with medication adjustment and monitoring.
[2021-10-30] MEDS: NICOTINE POLACRILEX 2 MG LOZENGE BC PRN ×3 (06:55→13:51)
[2021-10-30] MEDS: LORazepam 0.5 MG tablet PO SCH ×3 (07:29→20:30)
[2021-10-30] MEDS: haloperidol 5mg tablet PO SCH ×3 (07:29→16:14)
[2021-10-30] MEDS: naltrexone 50mg tablet PO SCH (07:29)
[2021-10-30] MEDS: megestrol acetate 400mg/10ml UD oral suspension PO SCH (07:34)
[2021-10-30 08:00] VITALS: BP 120/91
[2021-10-30] MEDS: polyvinyl alcohol ophthalmic drops 15ml bottle EACHEYE PRN (10:49)
[2021-10-30] MEDS: atorvastatin 20mg tablet PO SCH (16:14)
[2021-10-30] MEDS: sertraline 50mg tablet PO SCH (16:14)
--- NOTE | 2021-10-30 17:18 | NUR ---
Nursing Progress Notes Legal hold: LPS Conserved Client on involuntary status for GD Report received from Tere Chisholm RN with use of SBAR Why are they here: Pt admitted to [facility] for [facility] today on LPS conservatorship for Schizophrenia. Pt had escaped from this unit 4-5 days earlier. Pt walked back into the emergency room this morning. Pt has wounds to bilateral thumbs that could be cold weather injury and to L foot. Pt has been off of his meds since leaving. Pt immediately requests to go to lower level of care, return to [facility] or leave today. Pt here for medication stabilization and placement. Assessment What has happened this shift: RN received pt. asleep in bed at start of shift. Pt. awoke for breakfast and took medication. Pt. doing artwork in the AM. 1:1 done at bedside, pt. reports he feels trapped here. Pt. denies SI/HI, A/V hallucinations. Pt. had no outbursts today and was observed pacing the halls, watching TV, and napping in his room. Pt. showered today. S/I, H/I: Denies A/VH: Denies Sleep: Pt. slept 5.25 hrs on NOC shift and napped approx. 2 hr on day shift. ADL's: Independent. Pt. showered today. Group attendance: NA Were Meds taken: Yes Any med S/E: None reported or observed. Mental Status Exam Appearance: Disheveled but clean. Wearing greens scrubs. Eye contact: WNL Behavior: Cooperative, calm, socially withdrawn. Withdraws to his room often. Speech: Start/stop sentences. Poverty of speech. Mood: Anxious, agitated at times. Euthymic in the afternoon. Affect: Blunted Thought process: Some thought blocking. Thought Content: Discharge focused. Cognition: A/O x4 Insight: Poor Judgment: Poor Interventions PRN's used: Nicotine lozenges. Therapeutic interventions: Provided clear and simple instructions, provided direction and encouragement regarding performance of ADLs, monitored behaviors and maintained clear boundaries, provided positive reinforcement for positive behaviors and redirection for negative behaviors, and maintained Q 15min safety checks. Restraints/seclusion/emergency medication: None Justification of Continued Inpatient Treatment: Patient continues to require a safe and supportive environment with medication adjustment and monitoring.
[2021-10-30 19:53] VITALS: BP 126/86
[2021-10-30] MEDS: QUETIAPINE 150 MG TAB.SR.24H PO SCH (20:30)
[2021-10-30] MEDS: mirtazapine 15mg tablet PO SCH (20:30)
--- NOTE | 2021-10-31 01:52 | NUR ---
Nursing Progress Notes Legal hold: LPS Conserved Client on involuntary status for GD Report received from ELOY Berkowitz with use of SBAR Why are they here: Pt admitted to [facility] for [facility] on LPS conservatorship for Schizophrenia. Pt had escaped from this unit 4-5 days earlier. Pt walked back into the emergency room. Pt had wounds to bilateral thumbs that could be cold weather injury and to L foot. Pt has been off of his meds since leaving. Pt immediately requests to go to lower level of care, return to [place] or leave today. Pt here for medication stabilization and placement. Assessment What has happened this shift: Pt up on unit at start of shift. Had a spontaneous conversation with another pt. Spoke in complete sentences. Movements are jerky and repetitive still has pauses in conversation. Pt. denies SI/HI, A/V hallucinations. Took all medications and cooperative with mouth check for cheeking. S/I, H/I: Denies A/VH: Denies Sleep: asleep at this time ADL's: Independent. Pt. showered today. Group attendance: NA Were Meds taken: Yes Any med S/E: None reported or observed. Mental Status Exam Appearance: Disheveled but clean. Wearing greens scrubs. Eye contact: WNL Behavior: Cooperative, calm, socially withdrawn. Speech: Start/stop sentences. Mood: Pleasant and cooperative Affect: Blunted Thought process: Some thought blocking. Thought Content: Discharge focused. Cognition: A/O x4 Insight: Poor Judgment: Poor Interventions PRN's used: none Therapeutic interventions: Provided clear and simple instructions, provided direction and encouragement regarding performance of ADLs, monitored behaviors and maintained clear boundaries, provided positive reinforcement for positive behaviors and redirection for negative behaviors, and maintained Q 15min safety checks. Restraints/seclusion/emergency medication: None Justification of Continued Inpatient Treatment: Patient continues to require a safe and supportive environment with medication adjustment and monitoring.
[2021-10-31] MEDS: NICOTINE POLACRILEX 2 MG LOZENGE BC PRN ×2 (05:57→09:25)
[2021-10-31] MEDS: benzocaine (Anbesol) 12ml bottle MM PRN (05:57)
[2021-10-31 07:30] VITALS: BP 140/88
[2021-10-31] MEDS: haloperidol 5mg tablet PO SCH ×3 (07:34→16:17)
[2021-10-31] MEDS: megestrol acetate 400mg/10ml UD oral suspension PO SCH (07:34)
[2021-10-31] MEDS: LORazepam 0.5 MG tablet PO SCH ×3 (07:34→20:58)
[2021-10-31] MEDS: naltrexone 50mg tablet PO SCH (07:34)
[2021-10-31] MEDS: acetaminophen 325mg tablet PO PRN (07:59)
--- NOTE | 2021-10-31 09:22 | NUR ---
Reassessment: Pt overall continues to eat on average 25% meals, though occasionally refusing meals per documentation. Pt still receiving appetite stimulant per EMR and participates in most snacks per RN progress notes. Pt's wt remains stable throughout LOS despite poor PO intake. LBM 10/30, per physical assessment pt given MoM 10/30 per pt request as pt is unsure of LBM, though last documentation MoM given is 3/ per EMR. Will continue to follow closely. Recommendations: 1. Continue regular diet 2. Peanut butter and jelly sandwich BIDLD; milkshake TIDWM 3. Encourage PO intake of meals/snacks 4. Continue routine appetite stimulant 5. Initiate nutrition support if MD agreeable and within POC given continued poor PO intake of meals 6. Routine bowel care 7. Weekly scaled weights Addendum: 10/31/21 at [address] Amended: Links added. Addendum: 10/31/21 at [address] I have reviewed assessment by bakery pastry internship
[2021-10-31] MEDS: sertraline 50mg tablet PO SCH (16:17)
[2021-10-31] MEDS: atorvastatin 20mg tablet PO SCH (16:17)
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
[2021-10-31 20:40] VITALS: BP 111/70
[2021-10-31] MEDS: QUETIAPINE 150 MG TAB.SR.24H PO SCH (20:58)
[2021-10-31] MEDS: mirtazapine 15mg tablet PO SCH (20:58)
--- NOTE | 2021-11-01 03:38 | NUR ---
Nursing Progress Note: Legal hold: LPS Conserved Client on involuntary status for GD Report received from ELOY Berkowitz with use of SBAR Why are they here: Pt admitted to [place] for Behavioral health on LPS conservatorship for Schizophrenia. Pt had escaped from this unit 4-5 days earlier. Pt walked back into the emergency room this morning. Pt has wounds to bilateral thumbs that could be cold weather injury and to L foot. Pt has been off of his meds since leaving. Pt immediately requests to go to lower level of care, return to [place] or leave today. Pt here for medication stabilization and placement. Assessment What has happened this shift: Patient was lying on his bed after shift change. He appears to be in a pretty good mood today, and it was reported that he had a good day, without being behavioral. Patient remained isolated to his room, but came out to request some crackers, and later, some Anbusol for his aching teeth. Patient was cooperative and compliant with his medications tonight. He has slept without incident tonight. S/I, H/I: Denies A/VH: Denies Sleep: Refer to sleep assessment ADL's: Independent, prompting required Group attendance: NA Were Meds taken: Yes Any med S/E: None observed or reported Mental Status Exam Appearance: Pale, redness around his eyes, appropriately dressed in green unit attire Eye contact: Fair Behavior: Pleasant and cooperative, social with staff Speech: Fragmented, disorganized Mood: Bored Affect: Blunted Thought process: Fragmented with possible thought blocking Thought Content: Meeting needs; tooth pain Cognition: A&O x3 (not to event) Insight: Poor Judgment: Poor Interventions PRN's used: Anbesol Therapeutic interventions: Provided clear and simple instructions, provided direction and encouragement regarding performance of ADLs, monitored behaviors and maintained clear boundaries, provided positive reinforcement for positive behaviors and redirection for negative behaviors, and maintained Q 15min safety checks. Restraints/seclusion/emergency medication: None Justification of Continued Inpatient Treatment: Patient continues to require a safe and supportive environment with medication adjustment and monitoring.
[2021-11-01] MEDS: naltrexone 50mg tablet PO SCH (07:20)
[2021-11-01] MEDS: megestrol acetate 400mg/10ml UD oral suspension PO SCH (07:20)
[2021-11-01] MEDS: haloperidol 5mg tablet PO SCH ×3 (07:20→16:54)
[2021-11-01] MEDS: LORazepam 0.5 MG tablet PO SCH ×3 (07:20→20:14)
[2021-11-01] MEDS: acetaminophen 325mg tablet PO PRN (07:25)
[2021-11-01] MEDS: benzocaine (Anbesol) 12ml bottle MM PRN (07:25)
[2021-11-01] MEDS: NICOTINE POLACRILEX 2 MG LOZENGE BC PRN (07:44)
[2021-11-01 08:00] VITALS: BP 130/95
[2021-11-01] MEDS: atorvastatin 20mg tablet PO SCH (16:54)
[2021-11-01] MEDS: sertraline 50mg tablet PO SCH (16:54)
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
[2021-11-01 19:24] VITALS: BP 112/67
[2021-11-01] MEDS: mirtazapine 15mg tablet PO SCH (20:14)
[2021-11-01] MEDS: QUETIAPINE 150 MG TAB.SR.24H PO SCH (20:14)
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
[2021-11-02] MEDS: NICOTINE POLACRILEX 2 MG LOZENGE BC PRN ×2 (05:05→08:38)
[2021-11-02 08:00] VITALS: BP 120/81
[2021-11-02] MEDS: haloperidol 5mg tablet PO SCH ×3 (08:38→17:17)
[2021-11-02] MEDS: naltrexone 50mg tablet PO SCH (08:38)
[2021-11-02] MEDS: megestrol acetate 400mg/10ml UD oral suspension PO SCH (08:38)
[2021-11-02] MEDS: LORazepam 0.5 MG tablet PO SCH ×3 (08:38→20:13)
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
--- NOTE | 2021-11-02 15:05 | NUR ---
Denial of rights: Pt dropped the phone, called dietary, called the planograph operator and hung up on them several times. Attempts to explain good phone etiquette failed. Pt lost his phone rights today.
[2021-11-02] MEDS: atorvastatin 20mg tablet PO SCH (17:17)
[2021-11-02] MEDS: sertraline 50mg tablet PO SCH (17:17)
[2021-11-02 19:41] VITALS: BP 113/76
[2021-11-02] MEDS: benzocaine (Anbesol) 12ml bottle MM PRN (20:02)
[2021-11-02] MEDS: mirtazapine 15mg tablet PO SCH (20:13)
[2021-11-02] MEDS: QUETIAPINE 150 MG TAB.SR.24H PO SCH (20:13)
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
[2021-11-03] MEDS: NICOTINE POLACRILEX 2 MG LOZENGE BC PRN ×5 (07:00→20:12)
[2021-11-03 07:45] VITALS: BP 122/71
[2021-11-03] MEDS: haloperidol 5mg tablet PO SCH ×3 (08:07→16:46)
[2021-11-03] MEDS: naltrexone 50mg tablet PO SCH (08:07)
[2021-11-03] MEDS: megestrol acetate 400mg/10ml UD oral suspension PO SCH (08:07)
[2021-11-03] MEDS: LORazepam 0.5 MG tablet PO SCH ×3 (08:07→20:12)
[2021-11-03] MEDS: acetaminophen 325mg tablet PO PRN ×2 (08:08→20:13)
[2021-11-03] MEDS ORDERED: LIDOcaine 1% (10mg/ml)w/preservative inj. 20ml MDV ONE (09:55)
[2021-11-03] MEDS ORDERED: BUPIVACAINE liposomal/PF 13.3 MG/ML vial IM ONE (09:56)
[2021-11-03] MEDS ORDERED: BUPIVAcaine 0.5% inj/PF 60 ML ONE (09:56)
--- NOTE | 2021-11-03 11:48 | NUR ---
PLACEMENT UPDATE [facility] is still seeking IMD level of care. Clients packet is in the queue at [facility], [facility], [facility], and [facility]. (All of those facilities that clients packet is at, still have no beds available). Client has been declined at [facility], [facility], and [facility]. JAYCEE Aiken
--- NOTE | 2021-11-03 13:53 | NUR ---
Reassessment: Pt overall continues to eat on average 13-25% meals though fluctuates and occasionally refusing meals per documentation. Pt remains on appetite stimulant and does consume snacks per RN today. RD d/w RN regarding further food intake preferences; RN reports no real reasoning w/ food intake as pt reported preferences will then be refused at meal times. RD encouraged RN to notify dietary if any food preferences for specific meal times so we can optimize PO intake. Pt's wt remains stable throughout LOS despite poor PO intake. LBM 11/02. Will continue to follow closely. Recommendations: 1. Continue regular diet 2. milkshake TIDWM; honor pt food preferences 3. Encourage PO intake of meals/snacks 4. Continue routine appetite stimulant 5. Initiate nutrition support if MD agreeable and within POC given continued poor PO intake of meals since admit 3.5 months 6. Routine bowel care 7. Weekly scaled weights Addendum: 11/03/21 at [address] Amended: Links added.
--- NOTE | 2021-11-03 14:45 | NUR ---
Nursing Progress Note: Legal hold: LPS Conserved Client on involuntary status for GD Report received from Vanesa LYONS with use of SBAR Why are they here: Pt admitted to [place] for Behavioral health today on LPS conservatorship for Schizophrenia. Pt had escaped from this unit 4-5 days earlier. Pt walked back into the emergency room this morning. Pt has wounds to bilateral thumbs that could be cold weather injury and to L foot. Pt has been off of his meds since leaving. Pt immediately requests to go to lower level of care, return to [place] or leave today. Pt here for medication stabilization and placement. Assessment What has happened this shift: Pt was up before breakfast wandering the unit. Pt asked for a nicotine lozenge at 0700. Pt was given PRN Tylenol 650 this morning for dental pain with good effect. Pt dropped his breakfast tray on the floor and helped clean it up. Pt was observed jumping and leaping in the hallway. Pt was cooperative with his medications. Another RN bought pt some pizza for lunch. he ate 2 1/2 slices as well as some breadsticks. Pt can be needy at times requesting things repetitively throughout the day though pt has remained cooperative and redirectable today. S/I, H/I: Pt denies A/VH: Pt denies Sleep: Pt slept 6.75 hours last night per noc shift report. ADL's: Independent with prompting. Group attendance: No groups today. Were Meds taken: Yes Any med S/E: None noted or reported. Mental Status Exam Appearance: Thin pale, younger appearing man with short dark brown hair and facial hair dressed in green unit scrubs and tennis shoes. Eye contact: Good Behavior: Cooperative, intrusive at times, slowly paces, jumps and leaps, stops and starts abruptly. Speech: Has difficulty getting the words out at times, halting speech, monotone. Mood: Good, mildly excited today as he got pizza. Affect: Flat Thought process: Thought blocking, reality distortion, perseveration. Thought Content: He likes pizza, he wants out of here. Cognition: A/O X 2 Insight: Poor Judgment: Poor Interventions PRN's used: Nicotine Lozenges Therapeutic interventions: 1:1 assessment, therapeutic communication, active listening, provided clear and simple instructions, provided prompting and direction with ADLS, medication administration/education/monitoring, maintained clear boundaries, provided distraction, redirection, reality orientation, limit setting, positive reinforcement, and maintained Q15 minute safety checks. Restraints/seclusion/emergency medication: N/A Justification of Continued Inpatient Treatment: Patient continues to require a safe and supportive environment with medication adjustment and monitoring while awaiting LPS placement.
[2021-11-03] MEDS: sertraline 50mg tablet PO SCH (16:44)
[2021-11-03] MEDS: atorvastatin 20mg tablet PO SCH (16:44)
[2021-11-03 19:23] VITALS: BP 134/90
[2021-11-03] MEDS: mirtazapine 15mg tablet PO SCH (20:12)
[2021-11-03] MEDS: benzocaine (Anbesol) 12ml bottle MM PRN (20:12)
[2021-11-03] MEDS: QUETIAPINE 150 MG TAB.SR.24H PO SCH (20:12)
--- NOTE | 2021-11-04 04:12 | NUR ---
Nursing Progress Note: Legal hold: LPS Conserved Client on involuntary status for GD Report received from Gerry LYONS with use of SBAR Why are they here: Pt admitted to [place] for Behavioral health today on LPS conservatorship for Schizophrenia. Pt had escaped from this unit 4-5 days earlier. Pt walked back into the emergency room this morning. Pt has wounds to bilateral thumbs that could be cold weather injury and to L foot. Pt has been off of his meds since leaving. Pt immediately requests to go to lower level of care, return to [place] or leave today. Pt here for medication stabilization and placement. Assessment What has happened this shift: Patient was observed pacing around unit at change of shift. Patient complained of tooth pain multiple times and was give [place]. Patient also requested Tylenol which was given with night medications. Patient continued to pace around unit and request random things from staff. Patient spent some time in rec room and community room before going to bed. S/I, H/I: Pt denies A/VH: Pt denies Sleep: See sleep assessment ADL's: Independent with prompting. Group attendance: No groups today. Were Meds taken: Yes Any med S/E: None noted or reported. Mental Status Exam Appearance: Thin pale, younger appearing man with short dark brown hair and facial hair dressed in green unit scrubs and tennis shoes. Eye contact: Good Behavior: Cooperative, intrusive at times, slowly paces, jumps and leaps, stops and starts abruptly. Speech: Has difficulty getting the words out at times, Mood: Good, Affect: Flat Thought process: Thought blocking, reality distortion, perseveration. Thought Content: He wants to wear regular clothes to go with his shoes. Cognition: A/O X 2 Insight: Poor Judgment: Poor Interventions PRN's used: Nicotine Lozenges, Tylenol Therapeutic interventions: 1:1 assessment, therapeutic communication, active listening, provided clear and simple instructions, provided prompting and direction with ADLS, medication administration/education/monitoring, maintained clear boundaries, provided distraction, redirection, reality orientation, limit setting, positive reinforcement, and maintained Q15 minute safety checks. Restraints/seclusion/emergency medication: N/A Justification of Continued Inpatient Treatment: Patient continues to require a safe and supportive environment with medication adjustment and monitoring while awaiting LPS placement.
[2021-11-04] MEDS: NICOTINE POLACRILEX 2 MG LOZENGE BC PRN ×4 (06:13→16:36)
[2021-11-04 07:04] VITALS: BP 127/89
[2021-11-04] MEDS: naltrexone 50mg tablet PO SCH (07:49)
[2021-11-04] MEDS: haloperidol 5mg tablet PO SCH ×3 (07:50→16:21)
[2021-11-04] MEDS: LORazepam 0.5 MG tablet PO SCH ×3 (07:50→20:45)
[2021-11-04] MEDS: megestrol acetate 400mg/10ml UD oral suspension PO SCH (07:50)
--- NOTE | 2021-11-04 08:05 | NUR ---
PLACEMENT Sent updated notes 10/20-11/03 to [facility] office for placement purposes. JAYCEE Aiken
--- NOTE | 2021-11-04 16:08 | NUR ---
Nursing Progress Note: Legal hold: LPS Client on involuntary status for GD Report received from nurse with use of SBAR: ROSITA Mhaan Why are they here: Pt admitted to [place] for Behavioral health today on LPS conservatorship for Schizophrenia. Pt had escaped from this unit 4-5 days earlier. Pt walked back into the emergency room this morning. Pt has wounds to bilateral thumbs that could be cold weather injury and to L foot. Pt has been off of his meds since leaving. Pt immediately requests to go to lower level of care, return to [place] or leave today. Pt here for medication stabilization and placement. Assessment What has happened this shift: Received pt. pacing in the hallway restlessly at the beginning of the shift. He greeted this play writer appropriately and requested to shower. Pt. was able to shower independently with set-up help only. Afterwards, attempted to complete 1:1, however pt. continues to present with fragmented speech and gives inconsistent and fragmented responses. He is however able to make his needs known and stated, "I feel like I'm in a safe place." Pt. continues to perseverate on his desire to discharge and presents with impulsiveness and intrusiveness at times requesting multiple items repeatedly, however he is able to be redirected. He also appears to be less easily distracted and was able to sit and color a few pictures this shift and play a board game with others. Pt. remained up throughout the day and was observed to be exhibiting ritualistic/repetitive movements with ambulation as is his routine, however these appear less pronounced. Pt. did not exhibit any adverse behaviors (purposely dropping objects or spitting medications) or elopement attempts. However, he did require a one-time dose of PRN Atarax at approximately 1620 r/t increased restlessness and intrusiveness AEB banging on the door of the doctor's office making multiple requests. Medication administered with effectiveness. S/I, H/I: Denies A/VH: Unable to assess due to inconsistency of response. Does not appear to be internally preoccupied at times AEB distractibility Sleep: Sleep hours are 4 ADL's: Requires direction and encouragement. Ambulation is start and stop with ongoing ritualistic behaviors Group attendance: N/A Were meds taken: Yes Any med S/E: None Mental Status Exam Appearance: Somewhat disheveled, however appropriately dressed Eye contact: Fair Behavior: Cooperative, restless, guarded, withdrawn, ritualistic/repetitive, and impulsive Speech: Fragmented with paucity Mood: Guarded Affect: Blunted Thought process: Fragmented with some disorganization Thought Content:Perseveration on desire to discharge Cognition: A&O x3 Insight: Poor Judgment: Poor Interventions PRN's used: nicotine Lozenge Therapeutic interventions: Maintained a safe and supportive environment, ensured contract for safety, provided clear and simple instructions, provided direction and encouragement regarding performance of ADLs, monitored behaviors and maintained clear boundaries, provided positive reinforcement for positive behaviors and redirection for negative behaviors, and maintained Q 15min safety checks. Restraints/seclusion/emergency medication: N/A Justification of Continued Inpatient Treatment: JEM Cervantes, pt. continues to require a safe and supportive environment while awaiting placement. Continue to emphasize boundaries and consequences.
[2021-11-04] MEDS ORDERED: hydrOXYzine 25 MG tablet PO ONE (16:15)
[2021-11-04] MEDS: sertraline 50mg tablet PO SCH (16:21)
[2021-11-04] MEDS: atorvastatin 20mg tablet PO SCH (16:21)
[2021-11-04] MEDS: polyvinyl alcohol ophthalmic drops 15ml bottle EACHEYE PRN (17:13)
[2021-11-04] MEDS: acetaminophen 325mg tablet PO PRN (18:01)
--- NOTE | 2021-11-04 18:04 | NUR ---
At approximately 1730 pt. exhibited increased fatigue and appeared to be trying to fight sleep (pt. only slept 4 hours last night per report and did not nap today). He also reported bilateral eye discomfort and eye drops were administered along with PRN Tylenol. A sheet was hung in pt's window to block out light r/t window blind being broken. Pt. refused dinner and reported he was going to nap, a warm blanket was provided. Will endorse to Noc shift and continue to monitor.
[2021-11-04 19:48] VITALS: BP 142/95
[2021-11-04] MEDS ORDERED: ibuprofen 200mg tablet PO ONE ×2 (20:05→21:10)
[2021-11-04] MEDS: mirtazapine 15mg tablet PO SCH (20:44)
[2021-11-04] MEDS: QUETIAPINE 150 MG TAB.SR.24H PO SCH (20:44)
[2021-11-04] MEDS: benzocaine (Anbesol) 12ml bottle MM PRN (20:51)
--- NOTE | 2021-11-05 04:05 | NUR ---
Nursing Progress Note: Legal hold: LPS Client on involuntary status for GD Report received from nurse with use of SBAR: Gerry ELI Why are they here: Pt admitted to [facility] today on LPS conservatorship for Schizophrenia. Pt had escaped from this unit 4-5 days earlier. Pt walked back into the emergency room this morning. Pt has wounds to bilateral thumbs that could be cold weather injury and to L foot. Pt has been off of his meds since leaving. Pt immediately requests to go to lower level of care, return to [place] or leave today. Pt here for medication stabilization and placement. Assessment What has happened this shift: Patient was observed sleeping at change of shift. Patient awoken complaining of tooth pain and asking for Oragel. Patient came back 20 minuets later hopping up and down still complaining of pain. Patient had already been given Tylenol. Nurse called nascar pit crew person Mason who ordered one time 600 mg of ibuprofen. Patient was given all night medications including ibuprofen in yogurt . Patient took medications but was observed spitting them out into trash can 5 minuets later. Charge nurse ordered medications be given again crushed. Patient became very upset and argumentative when told he was going to be given crushed medications. Patient stopped of from nurse and started slamming and opening door. Patient started pleading to be able to take them uncrushed. Patient agreed to take crushed pills if he could have oreo's. Patient took medications and thanked nurse for getting him the ibuprofen. Patient slept for a couple of hours before getting up again to ask for more snacks. S/I, H/I: Denies A/VH: Does not appear to be internally preoccupied at times AEB distractibility Sleep: See sleep assessment ADL's: Requires direction and encouragement. Group attendance: N/A Were meds taken: Yes Any med S/E: None Mental Status Exam Appearance: Somewhat disheveled, however appropriately dressed Eye contact: Fair Behavior: Cooperative, restless, guarded, withdrawn and impulsive Speech: Fragmented with paucity Mood: Guarded Affect: Blunted Thought process: Fragmented with some disorganization Thought Content:Perseveration on desire to discharge Cognition: A&O x3 Insight: Poor Judgment: Poor Interventions PRN's used: Tylenol ,Oragel, ibuprofen Therapeutic interventions: Maintained a safe and supportive environment, ensured contract for safety, provided clear and simple instructions, provided direction and encouragement regarding performance of ADLs, monitored behaviors and maintained clear boundaries, provided positive reinforcement for positive behaviors and redirection for negative behaviors, and maintained Q 15min safety checks. Restraints/seclusion/emergency medication: N/A Justification of Continued Inpatient Treatment: Per JEM Gaona, pt. continues to require a safe and supportive environment while awaiting placement. Continue to emphasize boundaries and consequences.
[2021-11-05 07:51] VITALS: BP 139/70
[2021-11-05] MEDS: naltrexone 50mg tablet PO SCH (07:52)
[2021-11-05] MEDS: megestrol acetate 400mg/10ml UD oral suspension PO SCH (07:52)
[2021-11-05] MEDS: haloperidol 5mg tablet PO SCH ×3 (07:52→16:50)
[2021-11-05] MEDS: LORazepam 0.5 MG tablet PO SCH ×3 (07:52→21:15)
[2021-11-05] MEDS: NICOTINE POLACRILEX 2 MG LOZENGE BC PRN ×2 (11:10→21:15)
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
[2021-11-05] MEDS: atorvastatin 20mg tablet PO SCH (16:50)
[2021-11-05] MEDS: sertraline 50mg tablet PO SCH (16:51)
[2021-11-05] MEDS ORDERED: benzocaine (Anbesol) 12ml bottle MM PRN (16:55)
[2021-11-05] MEDS: benzocaine (Anbesol) 12ml bottle MM PRN (18:47)
[2021-11-05 19:00] VITALS: BP 128/95
[2021-11-05] MEDS: ibuprofen tablet 400 MG TABLET PO PRN (21:13)
[2021-11-05] MEDS: mirtazapine 15mg tablet PO SCH (21:13)
[2021-11-05] MEDS: QUETIAPINE 150 MG TAB.SR.24H PO SCH (21:13)
[2021-11-05] MEDS: acetaminophen 325mg tablet PO PRN (21:15)
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
[2021-11-06] MEDS: NICOTINE POLACRILEX 2 MG LOZENGE BC PRN ×2 (07:15→15:33)
[2021-11-06] MEDS: LORazepam 0.5 MG tablet PO SCH ×3 (07:16→20:26)
[2021-11-06] MEDS: haloperidol 5mg tablet PO SCH ×3 (07:16→16:43)
[2021-11-06] MEDS: megestrol acetate 400mg/10ml UD oral suspension PO SCH (07:16)
[2021-11-06] MEDS: naltrexone 50mg tablet PO SCH (07:16)
[2021-11-06] MEDS: cholecalciferol (vitamin D3) 1,000 unit (25mcg) tablet PO SCH (07:17)
[2021-11-06] MEDS: multivitamins, therapeutics tablet PO SCH (07:17)
[2021-11-06 08:19] VITALS: BP 118/85
[2021-11-06] MEDS: atorvastatin 20mg tablet PO SCH (16:43)
[2021-11-06] MEDS: sertraline 50mg tablet PO SCH (16:43)
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
[2021-11-06] MEDS: benzocaine (Anbesol) 12ml bottle MM PRN (20:24)
[2021-11-06] MEDS: QUETIAPINE 150 MG TAB.SR.24H PO SCH (20:26)
[2021-11-06] MEDS: mirtazapine 15mg tablet PO SCH (20:26)
[2021-11-06 20:47] VITALS: BP 118/82
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
[2021-11-07] MEDS: benzocaine (Anbesol) 12ml bottle MM PRN (06:12)
[2021-11-07] MEDS: ibuprofen tablet 400 MG TABLET PO PRN (06:21)
[2021-11-07] MEDS: NICOTINE POLACRILEX 2 MG LOZENGE BC PRN ×2 (06:45→15:41)
[2021-11-07] MEDS: multivitamins, therapeutics tablet PO SCH (07:17)
[2021-11-07] MEDS: LORazepam 0.5 MG tablet PO SCH ×3 (07:17→20:24)
[2021-11-07] MEDS: naltrexone 50mg tablet PO SCH (07:17)
[2021-11-07] MEDS: cholecalciferol (vitamin D3) 1,000 unit (25mcg) tablet PO SCH (07:17)
[2021-11-07] MEDS: haloperidol 5mg tablet PO SCH ×3 (07:17→16:00)
--- NOTE | 2021-11-07 07:30 | NUR ---
Reassessment: Pt overall continues to eat on average 13-25% meals though fluctuates and occasionally refusing meals per documentation. Pt remains on appetite stimulant and does consume snacks per RN today. RD encouraged RN to notify dietary if any food preferences for specific meal times so we can optimize PO intake. Pt's wt remains stable throughout LOS despite poor PO intake. LBM 4/2. Will continue to monitor Recommendations: 1. Continue regular diet 2. milkshake TIDWM; honor pt food preferences 3. Encourage PO intake of meals/snacks 4. Continue routine appetite stimulant 5. Initiate nutrition support if MD agreeable and within POC given continued poor PO intake of meals since admit 3.5 months 6. Routine bowel care 7. Weekly scaled weights Addendum: 11/07/21 at [address] Amended: Links added.
[2021-11-07] MEDS: megestrol acetate 400mg/10ml UD oral suspension PO SCH (07:56)
[2021-11-07 08:00] VITALS: BP 132/87
--- NOTE | 2021-11-07 14:00 | NUR ---
Called and left message with Public Guardian re patient's F/U dental appointment
[2021-11-07] MEDS: sertraline 50mg tablet PO SCH (16:00)
[2021-11-07] MEDS: atorvastatin 20mg tablet PO SCH (16:00)
[2021-11-07] MEDS: acetaminophen 325mg tablet PO PRN (16:01)
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
[2021-11-07] MEDS: QUETIAPINE 150 MG TAB.SR.24H PO SCH (20:24)
[2021-11-07] MEDS: mirtazapine 15mg tablet PO SCH (20:24)
[2021-11-07 20:26] VITALS: BP 117/77
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
[2021-11-08] MEDS: NICOTINE POLACRILEX 2 MG LOZENGE BC PRN (06:13)
[2021-11-08] MEDS: LORazepam 0.5 MG tablet PO SCH ×3 (07:22→20:15)
[2021-11-08] MEDS: multivitamins, therapeutics tablet PO SCH (07:22)
[2021-11-08] MEDS: haloperidol 5mg tablet PO SCH ×3 (07:22→16:12)
[2021-11-08] MEDS: cholecalciferol (vitamin D3) 1,000 unit (25mcg) tablet PO SCH (07:22)
[2021-11-08] MEDS: naltrexone 50mg tablet PO SCH (07:22)
[2021-11-08] MEDS: acetaminophen 325mg tablet PO PRN ×2 (07:23→20:18)
[2021-11-08] MEDS: megestrol acetate 400mg/10ml UD oral suspension PO SCH (07:23)
[2021-11-08 07:44] VITALS: BP 180/64
--- NOTE | 2021-11-08 13:00 | NUR ---
RN ATTEMPTED TO CONTACT PT.'S CONSERVATOR REGARDING F/U DENTAL APPOINTMENT. RN LEFT VOICEMAIL WITH CONTACT INFO.
[2021-11-08] MEDS: sertraline 50mg tablet PO SCH (16:12)
[2021-11-08] MEDS: atorvastatin 20mg tablet PO SCH (16:12)
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
[2021-11-08] MEDS: ibuprofen tablet 400 MG TABLET PO PRN (17:33)
[2021-11-08 19:00] VITALS: BP 120/84
[2021-11-08] MEDS: QUETIAPINE 150 MG TAB.SR.24H PO SCH (20:15)
[2021-11-08] MEDS: mirtazapine 15mg tablet PO SCH (20:15)
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
[2021-11-09] MEDS: NICOTINE POLACRILEX 2 MG LOZENGE BC PRN (06:49)
[2021-11-09] MEDS: cholecalciferol (vitamin D3) 1,000 unit (25mcg) tablet PO SCH (07:03)
[2021-11-09] MEDS: haloperidol 5mg tablet PO SCH ×3 (07:03→16:27)
[2021-11-09] MEDS: ibuprofen tablet 400 MG TABLET PO PRN (07:03)
[2021-11-09] MEDS: multivitamins, therapeutics tablet PO SCH (07:03)
[2021-11-09] MEDS: naltrexone 50mg tablet PO SCH (07:03)
[2021-11-09] MEDS: LORazepam 0.5 MG tablet PO SCH ×3 (07:04→20:25)
[2021-11-09] MEDS: megestrol acetate 400mg/10ml UD oral suspension PO SCH (07:05)
[2021-11-09 07:46] VITALS: BP 123/80
[2021-11-09 07:52] VITALS: BP 123/80
[2021-11-09] MEDS: atorvastatin 20mg tablet PO SCH (16:27)
[2021-11-09] MEDS: sertraline 50mg tablet PO SCH (16:27)
--- NOTE | 2021-11-09 16:59 | NUR ---
RN SPOKE WITH PUBLIC GUARDIAN CINDY AMADOR REGARDING F/U DENTAL APPOINTMENT. CINDY INFORMED RN THAT SHE WILL CALL BACK TOMORROW 11/10 REGARDING INFORMATION ABOUT APPOINTMENT.
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
[2021-11-09 19:51] VITALS: BP 107/72
[2021-11-09] MEDS: mirtazapine 15mg tablet PO SCH (20:25)
[2021-11-09] MEDS: QUETIAPINE 150 MG TAB.SR.24H PO SCH (20:25)
[2021-11-09] MEDS: acetaminophen 325mg tablet PO PRN (20:26)
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
[2021-11-10] MEDS: NICOTINE POLACRILEX 2 MG LOZENGE BC PRN ×2 (06:03→14:14)
[2021-11-10] MEDS: acetaminophen 325mg tablet PO PRN ×2 (06:04→20:05)
[2021-11-10] MEDS: multivitamins, therapeutics tablet PO SCH (07:53)
[2021-11-10] MEDS: LORazepam 0.5 MG tablet PO SCH ×3 (07:53→20:05)
[2021-11-10] MEDS: naltrexone 50mg tablet PO SCH (07:53)
[2021-11-10] MEDS: megestrol acetate 400mg/10ml UD oral suspension PO SCH (07:53)
[2021-11-10] MEDS: cholecalciferol (vitamin D3) 1,000 unit (25mcg) tablet PO SCH (07:53)
[2021-11-10] MEDS: haloperidol 5mg tablet PO SCH ×3 (07:53→17:04)
[2021-11-10 08:12] VITALS: BP 121/76
--- NOTE | 2021-11-10 13:26 | NUR ---
Pt attended group today. In group we did an Expressive Art Exercise where they yen out their path to wellness which mapped out how they will keep themselves well. Pt. engaged in the art process. He yen a few different symbols that he shared with the group about what he felt the meaning was. He got up and down quite often and even left the room a few times. His demeanor was calm and compliant. Aleksandra Fuentes, WINCH DERRICK OPERATOR
--- NOTE | 2021-11-10 14:08 | NUR ---
PLACEMENT UPDATE Sent updated notes (11/02-11/10) to [facility] office for placement purposes. Tricia Viveros was requesting additional information. JAYCEE Aiken
[2021-11-10] MEDS: sertraline 50mg tablet PO SCH (17:04)
[2021-11-10] MEDS: atorvastatin 20mg tablet PO SCH (17:04)
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
[2021-11-10] MEDS: mirtazapine 15mg tablet PO SCH (20:04)
[2021-11-10] MEDS: QUETIAPINE 150 MG TAB.SR.24H PO SCH (20:05)
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
[2021-11-11] MEDS: LORazepam 0.5 MG tablet PO SCH ×3 (07:26→20:41)
[2021-11-11] MEDS: multivitamins, therapeutics tablet PO SCH (07:26)
[2021-11-11] MEDS: naltrexone 50mg tablet PO SCH (07:26)
[2021-11-11] MEDS: haloperidol 5mg tablet PO SCH ×3 (07:26→17:05)
[2021-11-11] MEDS: cholecalciferol (vitamin D3) 1,000 unit (25mcg) tablet PO SCH (07:26)
[2021-11-11] MEDS: megestrol acetate 400mg/10ml UD oral suspension PO SCH (07:26)
[2021-11-11] MEDS: NICOTINE POLACRILEX 2 MG LOZENGE BC PRN ×3 (07:27→15:01)
[2021-11-11 08:00] VITALS: BP 105/73
--- NOTE | 2021-11-11 10:05 | NUR ---
Reassessment: Pt continues eating poorly, documented to be refusing most meals with the exception of 25-50% PO intake of starch only. Per historical records administrator pt has been not only participating in snacks but also requesting snacks. Given poor meal acceptance recommend continuing to offer snacks to optimize PO intake since pt appears to gravitate towards snacks rather than meals. Patient's weight with slight fluctuations throughout LOS however currently only -1 kg from admit wt. Pt continues receiving an appetite stimulant and is now receiving routine MVI and Vitamin D3. LBM documented to be 4/5 however per historical records administrator pt is a poor historian and LBM is actually unknown. PRN bowel care available. Will continue to follow. Recommendations: 1. Continue regular diet 2. milkshake TIDWM; honor pt food preferences 3. Encourage PO intake of meals/snacks 4. Continue routine appetite stimulant and MVI 5. Initiate nutrition support if physician agreeable and within POC given continued poor PO intake of meals since admit 4 months 6. Routine bowel care 7. Weekly scaled weights Addendum: 11/11/21 at [address] Amended: Links added.
[2021-11-11] MEDS: atorvastatin 20mg tablet PO SCH (17:05)
[2021-11-11] MEDS: sertraline 50mg tablet PO SCH (17:05)
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
[2021-11-11 19:46] VITALS: BP 135/93
[2021-11-11] MEDS: QUETIAPINE 150 MG TAB.SR.24H PO SCH (20:40)
[2021-11-11] MEDS: mirtazapine 15mg tablet PO SCH (20:41)
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
[2021-11-12] MEDS: multivitamins, therapeutics tablet PO SCH (07:41)
[2021-11-12] MEDS: cholecalciferol (vitamin D3) 1,000 unit (25mcg) tablet PO SCH (07:41)
[2021-11-12] MEDS: haloperidol 5mg tablet PO SCH ×3 (07:41→16:55)
[2021-11-12] MEDS: naltrexone 50mg tablet PO SCH (07:41)
[2021-11-12] MEDS: megestrol acetate 400mg/10ml UD oral suspension PO SCH (07:41)
[2021-11-12] MEDS: LORazepam 0.5 MG tablet PO SCH ×3 (07:41→20:07)
[2021-11-12 08:00] VITALS: BP 116/82
[2021-11-12] MEDS: NICOTINE POLACRILEX 2 MG LOZENGE BC PRN ×3 (09:29→16:43)
[2021-11-12 11:20] VITALS: BP 152/83
[2021-11-12] MEDS ORDERED: LORazepam 2 mg/ml vial ONE (11:24)
[2021-11-12] MEDS ORDERED: benztropine 1 mg/ml 2ml ampule ONE (11:25)
[2021-11-12 11:35] VITALS: BP 137/111
[2021-11-12] MEDS: atorvastatin 20mg tablet PO SCH (16:55)
[2021-11-12] MEDS: sertraline 50mg tablet PO SCH (16:55)
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
[2021-11-12] MEDS: acetaminophen 325mg tablet PO PRN (18:11)
[2021-11-12] MEDS: benzocaine (Anbesol) 12ml bottle MM PRN (18:11)
[2021-11-12 19:00] VITALS: BP 119/86
[2021-11-12] MEDS: benztropine 1mg tablet PO SCH (20:07)
[2021-11-12] MEDS: mirtazapine 15mg tablet PO SCH (20:07)
[2021-11-12] MEDS: QUETIAPINE 150 MG TAB.SR.24H PO SCH (20:07)
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
--- NOTE | 2021-11-13 03:46 | NUR ---
Pt up several times during the night. Pt is refusing sleeping aids at this time. Pt requesting snacks, juice, and warm blanket.
[2021-11-13] MEDS: naltrexone 50mg tablet PO SCH (07:31)
[2021-11-13] MEDS: haloperidol 5mg tablet PO SCH ×3 (07:31→16:00)
[2021-11-13] MEDS: cholecalciferol (vitamin D3) 1,000 unit (25mcg) tablet PO SCH (07:31)
[2021-11-13] MEDS: benztropine 1mg tablet PO SCH ×2 (07:31→20:34)
[2021-11-13] MEDS: multivitamins, therapeutics tablet PO SCH (07:31)
[2021-11-13] MEDS: LORazepam 0.5 MG tablet PO SCH ×3 (07:31→20:34)
[2021-11-13] MEDS: megestrol acetate 400mg/10ml UD oral suspension PO SCH (07:33)
[2021-11-13 07:40] VITALS: BP 115/86
[2021-11-13] MEDS: NICOTINE POLACRILEX 2 MG LOZENGE BC PRN ×3 (08:33→16:02)
[2021-11-13] MEDS: atorvastatin 20mg tablet PO SCH (15:58)
[2021-11-13] MEDS: sertraline 50mg tablet PO SCH (15:58)
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
[2021-11-13 19:00] VITALS: BP 112/78
[2021-11-13] MEDS: QUETIAPINE 150 MG TAB.SR.24H PO SCH (20:34)
[2021-11-13] MEDS: mirtazapine 15mg tablet PO SCH (20:34)
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
[2021-11-14] MEDS: NICOTINE POLACRILEX 2 MG LOZENGE BC PRN ×3 (04:58→15:47)
[2021-11-14 07:53] VITALS: BP 122/80
[2021-11-14] MEDS: benztropine 1mg tablet PO SCH ×2 (08:06→20:43)
[2021-11-14] MEDS: megestrol acetate 400mg/10ml UD oral suspension PO SCH (08:06)
[2021-11-14] MEDS: haloperidol 5mg tablet PO SCH ×3 (08:06→16:29)
[2021-11-14] MEDS: LORazepam 0.5 MG tablet PO SCH ×3 (08:06→20:43)
[2021-11-14] MEDS: cholecalciferol (vitamin D3) 1,000 unit (25mcg) tablet PO SCH (08:06)
[2021-11-14] MEDS: naltrexone 50mg tablet PO SCH (08:06)
[2021-11-14] MEDS: multivitamins, therapeutics tablet PO SCH (08:06)
[2021-11-14] MEDS: acetaminophen 325mg tablet PO PRN (15:46)
[2021-11-14] MEDS: sertraline 50mg tablet PO SCH (15:47)
[2021-11-14] MEDS: atorvastatin 20mg tablet PO SCH (15:47)
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
[2021-11-14 19:53] VITALS: BP 114/84
[2021-11-14] MEDS: mirtazapine 15mg tablet PO SCH (20:43)
[2021-11-14] MEDS: QUETIAPINE 150 MG TAB.SR.24H PO SCH (20:43)
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
[2021-11-15] MEDS: NICOTINE POLACRILEX 2 MG LOZENGE BC PRN ×4 (06:16→15:40)
[2021-11-15] MEDS: LORazepam 0.5 MG tablet PO SCH ×3 (07:40→20:18)
[2021-11-15] MEDS: multivitamins, therapeutics tablet PO SCH (07:40)
[2021-11-15] MEDS: haloperidol 5mg tablet PO SCH ×3 (07:40→16:05)
[2021-11-15] MEDS: benztropine 1mg tablet PO SCH ×2 (07:41→20:18)
[2021-11-15] MEDS: cholecalciferol (vitamin D3) 1,000 unit (25mcg) tablet PO SCH (07:41)
[2021-11-15] MEDS: megestrol acetate 400mg/10ml UD oral suspension PO SCH (07:44)
[2021-11-15] MEDS: naltrexone 50mg tablet PO SCH (07:44)
[2021-11-15 08:00] VITALS: BP 125/96
[2021-11-15] MEDS: magnesium hydroxide 30ml (MOM) UD suspension PO PRN (10:15)
--- NOTE | 2021-11-15 10:20 | NUR ---
Reassessment: No significant changes in nutrition status. Pt documented with 100% PO intake of dinner 11/12 and 75% PO intake of lunch 11/13, however with 0-25% of all surrounding meals. Per insurance account representative pt participating in snacks and has been requesting a lot of snacks. Recommend continuing to offer snacks to optimize PO intake since pt appears to gravitate towards snacks rather than meals. Wt is stable since last RD assessment. LBM 11/13. Will continue to follow. Recommendations: 1. Continue regular diet 2. Milkshake TIDWM; honor pt food preferences 3. Encourage PO intake of meals/snacks 4. Continue routine appetite stimulant and MVI 5. Initiate nutrition support if physician agreeable and within POC given continued poor PO intake of meals since admit 4 months 6. Routine bowel care 7. Weekly scaled weights Addendum: 11/15/21 at [address] Amended: Links added.
--- NOTE | 2021-11-15 13:31 | NUR ---
Called and spoke to Jozef's conservator, Aleksandradarius Alcazar (ph# [phone]), to discuss a behavior plan which includes Jozef having access to a debit card in which he can purchase items from the cafeteria based on good behavior. She requested selling underwriter send her an email with the behavior plan and where the debit card would be kept, etc. Emailed her the requested information. Also, inquired about his follow up dental appointments. JAYCEE Aiken
--- NOTE | 2021-11-15 14:04 | NUR ---
PLACEMENT UPDATE Sent updated notes (11/10-11/14) to [facility] office. Re-sent notes that were sent last week (11/02-11/10). JAYCEE Aiken
[2021-11-15] MEDS: ibuprofen tablet 400 MG TABLET PO PRN (14:40)
[2021-11-15] MEDS: atorvastatin 20mg tablet PO SCH (16:05)
[2021-11-15] MEDS: sertraline 50mg tablet PO SCH (16:05)
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
[2021-11-15 19:43] VITALS: BP 112/78
[2021-11-15] MEDS: mirtazapine 15mg tablet PO SCH (20:18)
[2021-11-15] MEDS: QUETIAPINE 150 MG TAB.SR.24H PO SCH (20:18)
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
[2021-11-16] MEDS: multivitamins, therapeutics tablet PO SCH (07:28)
[2021-11-16] MEDS: haloperidol 5mg tablet PO SCH ×3 (07:28→16:32)
[2021-11-16] MEDS: benztropine 1mg tablet PO SCH ×2 (07:28→19:59)
[2021-11-16] MEDS: LORazepam 0.5 MG tablet PO SCH ×3 (07:28→19:59)
[2021-11-16] MEDS: cholecalciferol (vitamin D3) 1,000 unit (25mcg) tablet PO SCH (07:28)
[2021-11-16] MEDS: naltrexone 50mg tablet PO SCH (07:29)
[2021-11-16] MEDS: megestrol acetate 400mg/10ml UD oral suspension PO SCH (07:39)
[2021-11-16 07:42] VITALS: BP 104/71
[2021-11-16] MEDS: NICOTINE POLACRILEX 2 MG LOZENGE BC PRN ×4 (08:08→15:31)
[2021-11-16] MEDS: benzocaine (Anbesol) 12ml bottle MM PRN (13:27)
[2021-11-16] MEDS: atorvastatin 20mg tablet PO SCH (16:32)
[2021-11-16] MEDS: sertraline 50mg tablet PO SCH (16:32)
[2021-11-16] MEDS: ibuprofen tablet 400 MG TABLET PO PRN (16:36)
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
[2021-11-16] MEDS: QUETIAPINE 150 MG TAB.SR.24H PO SCH (19:59)
[2021-11-16] MEDS: mirtazapine 15mg tablet PO SCH (19:59)
[2021-11-16 20:00] VITALS: BP 101/64
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
[2021-11-17] MEDS: multivitamins, therapeutics tablet PO SCH (07:21)
[2021-11-17] MEDS: NICOTINE POLACRILEX 2 MG LOZENGE BC PRN ×2 (07:21→12:36)
[2021-11-17] MEDS: haloperidol 5mg tablet PO SCH ×3 (07:22→16:40)
[2021-11-17] MEDS: LORazepam 0.5 MG tablet PO SCH ×3 (07:22→20:43)
[2021-11-17] MEDS: naltrexone 50mg tablet PO SCH (07:22)
[2021-11-17] MEDS: benztropine 1mg tablet PO SCH ×2 (07:22→20:43)
[2021-11-17] MEDS: megestrol acetate 400mg/10ml UD oral suspension PO SCH (07:22)
[2021-11-17] MEDS: cholecalciferol (vitamin D3) 1,000 unit (25mcg) tablet PO SCH (07:22)
[2021-11-17 08:04] VITALS: BP 109/77
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
[2021-11-17] MEDS: atorvastatin 20mg tablet PO SCH (16:39)
[2021-11-17] MEDS: sertraline 50mg tablet PO SCH (16:40)
[2021-11-17 19:00] VITALS: BP 108/65
[2021-11-17] MEDS: mirtazapine 15mg tablet PO SCH (20:43)
[2021-11-17] MEDS: quetiapine fumarate ER 300mg tablet PO SCH (20:43)
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
[2021-11-18] MEDS: cholecalciferol (vitamin D3) 1,000 unit (25mcg) tablet PO SCH (07:08)
[2021-11-18] MEDS: megestrol acetate 400mg/10ml UD oral suspension PO SCH (07:08)
[2021-11-18] MEDS: haloperidol 5mg tablet PO SCH ×3 (07:08→16:59)
[2021-11-18] MEDS: benztropine 1mg tablet PO SCH ×2 (07:08→19:51)
[2021-11-18] MEDS: LORazepam 0.5 MG tablet PO SCH ×3 (07:08→19:51)
[2021-11-18] MEDS: multivitamins, therapeutics tablet PO SCH (07:08)
[2021-11-18] MEDS: naltrexone 50mg tablet PO SCH (07:08)
[2021-11-18] MEDS: NICOTINE POLACRILEX 2 MG LOZENGE BC PRN ×2 (07:20→10:20)
[2021-11-18 07:36] VITALS: BP 114/67
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
[2021-11-18] MEDS: sertraline 50mg tablet PO SCH (16:59)
[2021-11-18] MEDS: atorvastatin 20mg tablet PO SCH (16:59)
[2021-11-18] MEDS: quetiapine fumarate ER 300mg tablet PO SCH (19:50)
[2021-11-18] MEDS: mirtazapine 15mg tablet PO SCH (19:51)
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
[2021-11-19] MEDS: NICOTINE POLACRILEX 2 MG LOZENGE BC PRN ×2 (05:58→11:40)
[2021-11-19 07:41] VITALS: BP 102/64
[2021-11-19] MEDS: multivitamins, therapeutics tablet PO SCH (07:56)
[2021-11-19] MEDS: naltrexone 50mg tablet PO SCH (07:56)
[2021-11-19] MEDS: haloperidol 5mg tablet PO SCH ×3 (07:56→17:27)
[2021-11-19] MEDS: benztropine 1mg tablet PO SCH ×2 (07:56→20:35)
[2021-11-19] MEDS: LORazepam 0.5 MG tablet PO SCH ×3 (07:56→20:35)
[2021-11-19] MEDS: cholecalciferol (vitamin D3) 1,000 unit (25mcg) tablet PO SCH (07:57)
[2021-11-19] MEDS: megestrol acetate 400mg/10ml UD oral suspension PO SCH (07:57)
--- NOTE | 2021-11-19 10:09 | NUR ---
Reassessment: Pt with temporary improvement in PO intake, documented with 75-100% PO intake dinner 11/15 to breakfast 11/17, however with 0-25% of all surrounding meals. Per facility technician pt participating in snacks and continues to request snacks frequently. Recommend continuing to offer snacks to optimize PO intake since pt gravitates towards snacks. D/w dietary to send some grill items with lunches to see if pt will be more accepting of that rather than the standard meals as pt requesting food like pizza (unfortunately not available from kitchen) and tator tots. LBM 11/17, with PRN bowel care available, last given 11/15 pt EMR. Will continue to follow. Recommendations: 1. Continue regular diet 2. Milkshake TIDWM; trial grill items with lunches 3. Encourage PO intake of meals/snacks; honor food preferences as able 4. Continue routine appetite stimulant and MVI 5. Initiate nutrition support if physician agreeable and within POC given continued poor PO intake of meals since admit 4 months 6. Routine bowel care 7. Weekly scaled weights Addendum: 11/19/21 at [address] Amended: Links added.
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
[2021-11-19] MEDS: atorvastatin 20mg tablet PO SCH (17:27)
[2021-11-19 19:00] VITALS: BP 103/67
[2021-11-19] MEDS: quetiapine fumarate ER 300mg tablet PO SCH (20:35)
[2021-11-19] MEDS: guanFACINE 1 mg tablet PO SCH (20:35)
[2021-11-19] MEDS: mirtazapine 15mg tablet PO SCH (20:35)
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
[2021-11-20] MEDS: benztropine 1mg tablet PO SCH ×2 (07:10→20:22)
[2021-11-20] MEDS: multivitamins, therapeutics tablet PO SCH (07:10)
[2021-11-20] MEDS: cholecalciferol (vitamin D3) 1,000 unit (25mcg) tablet PO SCH (07:10)
[2021-11-20] MEDS: LORazepam 0.5 MG tablet PO SCH ×3 (07:11→20:22)
[2021-11-20] MEDS: haloperidol 5mg tablet PO SCH ×3 (07:11→17:04)
[2021-11-20] MEDS: megestrol acetate 400mg/10ml UD oral suspension PO SCH (07:11)
[2021-11-20] MEDS: naltrexone 50mg tablet PO SCH (07:11)
[2021-11-20 07:30] VITALS: BP 97/68
[2021-11-20] MEDS: NICOTINE POLACRILEX 2 MG LOZENGE BC PRN (14:38)
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
[2021-11-20] MEDS: atorvastatin 20mg tablet PO SCH (17:04)
[2021-11-20] MEDS: sertraline 50mg tablet PO SCH (17:04)
[2021-11-20 19:16] VITALS: BP 106/78
[2021-11-20] MEDS: guanFACINE 1 mg tablet PO SCH (20:22)
[2021-11-20] MEDS: mirtazapine 15mg tablet PO SCH (20:22)
[2021-11-20] MEDS: quetiapine fumarate ER 300mg tablet PO SCH (20:22)
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
[2021-11-21] MEDS: benztropine 1mg tablet PO SCH ×2 (07:03→20:45)
[2021-11-21] MEDS: naltrexone 50mg tablet PO SCH (07:03)
[2021-11-21] MEDS: multivitamins, therapeutics tablet PO SCH (07:03)
[2021-11-21] MEDS: megestrol acetate 400mg/10ml UD oral suspension PO SCH (07:03)
[2021-11-21] MEDS: LORazepam 0.5 MG tablet PO SCH ×3 (07:03→20:45)
[2021-11-21] MEDS: haloperidol 5mg tablet PO SCH ×3 (07:03→16:10)
[2021-11-21] MEDS: cholecalciferol (vitamin D3) 1,000 unit (25mcg) tablet PO SCH (07:04)
[2021-11-21 08:14] VITALS: BP 111/73
--- NOTE | 2021-11-21 10:19 | NUR ---
Pt. attended group today. Todays group was about the difference between Growth Mindset vs. Fixed Mindset. We learned about the differences and then discussed what aspect of developing a growth mindset they wanted to work on. Pt. was in and out of the group room today. He intermittently would share thoughts with the group. His thoughts were not always connected to the information being shared and he often would have to be redirected as he tends to talk over other people. He was amenable to redirection. His demeanor was calm and pleasant. HUNTER LukeW
[2021-11-21] MEDS: acetaminophen 325mg tablet PO PRN (11:42)
--- NOTE | 2021-11-21 14:04 | NUR ---
Purchased Jozef link BrowerLilly Monie from the cafeteria based on good behavior this morning. Utilized his debit card. Purchase = $1.80. JAYCEE Aiken
[2021-11-21] MEDS: NICOTINE POLACRILEX 2 MG LOZENGE BC PRN (14:18)
[2021-11-21] MEDS: atorvastatin 20mg tablet PO SCH (16:10)
[2021-11-21] MEDS: sertraline 50mg tablet PO SCH (16:11)
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
[2021-11-21 19:50] VITALS: BP 106/66
[2021-11-21] MEDS: mirtazapine 15mg tablet PO SCH (20:45)
[2021-11-21] MEDS: quetiapine fumarate ER 300mg tablet PO SCH (20:45)
[2021-11-21] MEDS: guanFACINE 1 mg tablet PO SCH (20:45)
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
[2021-11-22] MEDS: haloperidol 5mg tablet PO SCH ×3 (07:48→16:30)
[2021-11-22] MEDS: multivitamins, therapeutics tablet PO SCH (07:48)
[2021-11-22] MEDS: LORazepam 0.5 MG tablet PO SCH ×3 (07:48→20:20)
[2021-11-22] MEDS: benztropine 1mg tablet PO SCH ×2 (07:48→20:20)
[2021-11-22] MEDS: cholecalciferol (vitamin D3) 1,000 unit (25mcg) tablet PO SCH (07:49)
[2021-11-22] MEDS: megestrol acetate 400mg/10ml UD oral suspension PO SCH (07:49)
[2021-11-22] MEDS: naltrexone 50mg tablet PO SCH (07:49)
[2021-11-22] MEDS: NICOTINE POLACRILEX 2 MG LOZENGE BC PRN ×2 (08:04→12:33)
[2021-11-22 08:31] VITALS: BP 109/78
[2021-11-22] MEDS: ibuprofen tablet 400 MG TABLET PO PRN (10:22)
--- NOTE | 2021-11-22 11:10 | NUR ---
Pt. attended the morning group today. In group we talked about talked about the Wellness and utilized the Self Care Wheel to help Patients determine the wellness/self-care activities they enjoy in each domain presented in the wheel. The four domains are the physical, spiritual, emotional and physical. Pt appeared to want to engaged in group by asking for this [employer] to help him with his Self Care Wheel. This [employer] helped him by talking him through each domain, he was able to come up with at least one activity for each domain. He appeared interested in the topic and managed to stick with it and complete with my help. He reported that he wants to have a good life, he wants to work on being more social with others ( this [employer] commended him for his recent commitment to coming to group), and he likes to be outside. At times he would share thoughts that almost would come across like a word salad, very hard to understand what he was trying to communicate. His demeanor was calm, compliant and pleasant. He stayed for most of the group but toward the end he would go in and out of the room. Aleksandra Fuentes LCSW
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
[2021-11-22] MEDS: atorvastatin 20mg tablet PO SCH (16:30)
[2021-11-22] MEDS: sertraline 50mg tablet PO SCH (16:31)
[2021-11-22 19:55] VITALS: BP 97/58
[2021-11-22] MEDS: quetiapine fumarate ER 300mg tablet PO SCH (20:20)
[2021-11-22] MEDS: mirtazapine 15mg tablet PO SCH (20:20)
[2021-11-22] MEDS: guanFACINE 1 mg tablet PO SCH (20:21)
--- NOTE | 2021-11-23 03:50 | NUR ---
Nursing Progress Note Legal hold: LPS Conserved Client on involuntary status for GD Report received from ELOY Garrett with use of SBAR Why are they here: Pt admitted to [facility] for [facility] health today on LPS conservatorship for Schizophrenia. Pt had escaped from this unit 4-5 days earlier. Pt walked back into the emergency room this morning. Pt has wounds to bilateral thumbs that could be cold weather injury and to L foot. Pt has been off of his meds since leaving. Pt immediately requests to go to lower level of care, return to [place] or leave today. Pt here for medication stabilization and placement. Assessment What has happened this shift: Patient laying in bed awake at the beginning of shift. Pleasant and cooperative with care; compliant with medication. Patient denies SI, HI, A/VH; no apparent delusions expressed. Patient remained in bed except to request snacks. He is observed sleeping and does not appear to be having difficulty. S/I, H/I: Denies A/VH: Denies Sleep: Refer to sleep assessment ADL's: Independent Group attendance: NA Were Meds taken: Yes Any med S/E: None observed or reported Mental Status Exam Appearance: Neat and appropriately dressed in green scrubs Eye contact: Good Behavior: Pleasant and cooperative, self isolative Speech: Clear, audible, sentences more formed today Mood: Euthymic Affect: Blunted Thought process: Linear with thought blocking Thought Content: Meeting needs Cognition: A&O x3 to self, time and place Insight: Poor Judgment: Poor Interventions PRN's used: None Therapeutic interventions: Attempt to have patient participate in morning assessment and conversation, provided clear and simple instructions, provided direction and encouragement regarding performance of ADLs, monitored behaviors and maintained clear boundaries, provided positive reinforcement for positive behaviors and redirection for negative behaviors, and maintained Q 15min safety checks. Restraints/seclusion/emergency medication: NA Justification of Continued Inpatient Treatment: Patient continues to require a safe and supportive environment with medication adjustment and monitoring, while awaiting LPS placement.
[2021-11-23] MEDS: NICOTINE POLACRILEX 2 MG LOZENGE BC PRN ×4 (06:20→18:11)
--- NOTE | 2021-11-23 07:18 | NUR ---
Reassessment: Pt continues w/ variable intake, avg 34% x 11 meals. Per piercing mill operator pt does not always participate in snacks and occasionally drops drinks. Recommend continuing to offer snacks to optimize PO intake since pt gravitates towards snacks. D/w dietary to send some grill items with lunches to see if pt will be more accepting of that rather than the standard meals as pt requesting food like pizza (unfortunately not available from kitchen) and tator tots. Noted that pt was able to purchase a soda from the cafe w/ a debit card. LBM 11/17, with PRN bowel care available. Will continue to follow. Recommendations: 1. Continue regular diet 2. Milkshake TIDWM; trial grill items with lunches 3. Encourage PO intake of meals/snacks; honor food preferences as able 4. Continue routine appetite stimulant and MVI 5. Initiate nutrition support if physician agreeable and within POC given continued poor PO intake of meals since admit 4 months 6. Routine bowel care 7. Weekly scaled weights Addendum: 11/23/21 at [address] Amended: Links added.
[2021-11-23 07:42] VITALS: BP 115/77
[2021-11-23] MEDS: benztropine 1mg tablet PO SCH ×2 (08:32→20:46)
[2021-11-23] MEDS: LORazepam 0.5 MG tablet PO SCH ×3 (08:32→20:46)
[2021-11-23] MEDS: multivitamins, therapeutics tablet PO SCH (08:32)
[2021-11-23] MEDS: haloperidol 5mg tablet PO SCH ×3 (08:32→16:53)
[2021-11-23] MEDS: cholecalciferol (vitamin D3) 1,000 unit (25mcg) tablet PO SCH (08:33)
[2021-11-23] MEDS: naltrexone 50mg tablet PO SCH (08:35)
[2021-11-23] MEDS: megestrol acetate 400mg/10ml UD oral suspension PO SCH (08:35)
--- NOTE | 2021-11-23 11:08 | NUR ---
Pt. attended the morning groups that were offered today. In the first group we talked about talked about the Wellness and utilized the Self Care Wheel to help Patients determine the wellness/self-care activities they enjoy in each domain presented in the wheel. The four domains are the physical, spiritual, emotional and physical. Pt. engaged easily and quickly filled out her different wellness activities she engages in each domain. She came back for the second group and engaged in a visual representation of her Path to Wellness. Pts are asked to draw their path with the steps they feels they need to take to move forward to maintaining wellness. She appeared to enjoy the activity and was open to sharing it with the group. She yen a scene with mountains and a forest with a log cabin. She showed how her children's names where written and explained that this would be her dream to have everyone together in this place. She didn't provide the steps like what was asked of her but instead yen a safe places she enjoyed. She Her mood appeared a bit elevated with a labile affect. Her thought content appeared to contain some thoughts of that were delusional. Addendum: 11/23/21 at 1109 by Aleksandar Fuentes SS This note is not for Pt, this was not meant to be written in his chart. Aleksandra Fuentes HEALTH CARE COACH
[2021-11-23] MEDS: acetaminophen 325mg tablet PO PRN (13:09)
--- NOTE | 2021-11-23 13:56 | NUR ---
DENTIST Left message with [facility]'s Public Guardian, Aleksandra Alcazar (ph# [phone]), requesting a call back regarding follow up dental appt. Also emailed Aleksandra and Spa Manager Public Guardian, Michelle Caldera, to advocate for a follow up appt. JAYCEE Aiken
[2021-11-23] MEDS: sertraline 50mg tablet PO SCH (16:51)
[2021-11-23] MEDS: atorvastatin 20mg tablet PO SCH (16:53)
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
[2021-11-23 19:45] VITALS: BP 101/64
[2021-11-23] MEDS: guanFACINE 1 mg tablet PO SCH (20:44)
[2021-11-23] MEDS: mirtazapine 15mg tablet PO SCH (20:46)
[2021-11-23] MEDS: quetiapine fumarate ER 300mg tablet PO SCH (20:46)
--- NOTE | 2021-11-24 02:41 | NUR ---
Nursing Progress Note Legal hold: LPS Conserved Client on involuntary status for GD Report received from ELOY Berkowitz with use of SBAR Why are they here: Pt admitted to [facility] for [facility] health today on LPS conservatorship for Schizophrenia. Pt had escaped from this unit 4-5 days earlier. Pt walked back into the emergency room this morning. Pt has wounds to bilateral thumbs that could be cold weather injury and to L foot. Pt has been off of his meds since leaving. Pt immediately requests to go to lower level of care, return to [place] or leave today. Pt here for medication stabilization and placement. Assessment What has happened this shift: Patient laying in bed awake at the beginning of shift. Pleasant and cooperative with care; compliant with medication. Minaex held this shift d/t BP parameters. Denies SI, HI, A/VH. Patient remained in bed except to request snack this shift. He is observed sleeping and does not appear to be having difficulty. S/I, H/I: Denies A/VH: Denies Sleep: Refer to sleep assessment ADL's: Independent Group attendance: NA Were Meds taken: Yes Any med S/E: None observed or reported Mental Status Exam Appearance: Neat and appropriately dressed in green scrubs Eye contact: Good Behavior: Pleasant and cooperative, self isolative, sleeping Speech: Clear, audible, sentences more formed today Mood: Fatigued Affect: Blunted Thought process: Linear with thought blocking Thought Content: Meeting needs Cognition: A&O x3 to self, time and place Insight: Poor Judgment: Poor Interventions PRN's used: None Therapeutic interventions: Attempt to have patient participate in morning assessment and conversation, provided clear and simple instructions, provided direction and encouragement regarding performance of ADLs, monitored behaviors and maintained clear boundaries, provided positive reinforcement for positive behaviors and redirection for negative behaviors, and maintained Q 15min safety checks. Restraints/seclusion/emergency medication: NA Justification of Continued Inpatient Treatment: Patient continues to require a safe and supportive environment with medication adjustment and monitoring, while awaiting LPS placement.
--- NOTE | 2021-11-24 07:26 | NUR ---
DENTAL UPDATE Received the following response from Joz[facility]'s Public Guardian, Aleksandra Alcazar, in regards to his dental needs. She reported the dentist stated, "There is biofilm build up and he is in need of extensive dental work in the future. No swelling or infection is present at today's visit. Not at high risk for pain and infection at this time. DDS stated that Jozef would not sit down and kept trying to leave during the visit. He believes that Jozef will not be able to handle any dental procedures at this time." Aleksandra stated, "the Dentist was more concerned with Jozef not cooperating and would not be able to handle any dental work at this time. [facility] has a long waiting list to be seen, I was only able to get him in to be assessed with an Emergency. There is no follow up appointments at this time. Jozef would have to be stable to get him seen for routine dental work at this time. If his teeth become worse or you see swelling please notify me and I will get him seen for Emergency Dental Exam. As this is the only appointments available at this time unfortunately." JAYCEE Aiken
[2021-11-24] MEDS: cholecalciferol (vitamin D3) 1,000 unit (25mcg) tablet PO SCH (07:40)
[2021-11-24] MEDS: naltrexone 50mg tablet PO SCH (07:40)
[2021-11-24] MEDS: multivitamins, therapeutics tablet PO SCH (07:40)
--- NOTE | 2021-11-24 07:40 | NUR ---
BEHAVIOR MODIFICATION PLAN Jozef's Public Guardian purchased a debit card to be used to purchase Jozef items of his choice from the cafeteria as part of a behavior modification plan. bag worker, Pia, is the single point of contact for purchasing items. Jozef can earn a reward based on good behavior (has a good couple hours in which he follows the rules, takes his meds, refrains from dropping things, etc). Pia will check in with staff to ensure good behavior prior to purchasing items. Staff can let Pia know if he earned a reward. Staff can also leave Pia messages on maintenance technician 3rd shift or the weekend to let her know if Jozef earned a reward on their shift. JAYCEE Aiken
[2021-11-24] MEDS: LORazepam 0.5 MG tablet PO SCH ×3 (07:41→20:33)
[2021-11-24] MEDS: haloperidol 5mg tablet PO SCH ×3 (07:41→16:05)
[2021-11-24] MEDS: benztropine 1mg tablet PO SCH ×2 (07:41→20:33)
[2021-11-24] MEDS: megestrol acetate 400mg/10ml UD oral suspension PO SCH (07:41)
[2021-11-24 07:44] VITALS: BP 105/70
[2021-11-24] MEDS: NICOTINE POLACRILEX 2 MG LOZENGE BC PRN ×3 (07:55→14:15)
--- NOTE | 2021-11-24 07:59 | NUR ---
PLACEMENT UPDATE Sent updated notes (11/15/21-11/23/21) to [facility] office for placement purposes. His packet is at [facility], and [facility]. JAYCEE Aiken
[2021-11-24] MEDS: mag hydrox/Alum hydrox/simeth 30ml oral suspension PO PRN (09:23)
--- NOTE | 2021-11-24 11:52 | NUR ---
GOOD BEHAVIOR Purchased Jozef a scone and mug rootbeer (his requests) with Jozef's debit card and gave it to him. Staff reported he has had a good morning. JAYCEE Aiken
--- NOTE | 2021-11-24 11:54 | NUR ---
ORAL SURGEON REFERRAL Dr Tc DDS, at [facility], called to discuss Jozef's dental concerns. Dr Montez reported she is concerned about a tooth that has a large cavity and needs to be extracted. She reported she expects in the next 3-6 months the tooth to get infected and be painful if it's not already. She reported he has has other smaller cavities that need to be addressed at some point. Dr Montez reported she is going to refer Jozef to an oral surgeon for the extraction as they can sedate him to complete it. She reported there are not any oral surgeon's that take [facility] in [place]. She reported she is going to refer to a local oral surgeon and Public Guardian can pay out of pocket for the expense if they want to. Dr Montez faxed a copy of the referral to [facility] and report writer sent a copy to Public Guardian. JAYCEE Aiken
[2021-11-24] MEDS: atorvastatin 20mg tablet PO SCH (16:05)
[2021-11-24] MEDS: sertraline 50mg tablet PO SCH (16:06)
--- NOTE | 2021-11-24 16:16 | NUR ---
Nursing Progress Note: [facility] Legal hold: LPS Conserved Client on involuntary status for GD Report received from ELOY Alexis with use of SBAR Why are they here: Pt admitted to [facility] for Behavioral health today on LPS conservatorship for Schizophrenia. Pt had escaped from this unit 4-5 days earlier. Pt walked back into the emergency room this morning. Pt has wounds to bilateral thumbs that could be cold weather injury and to L foot. Pt has been off of his meds since leaving. Pt immediately requests to go to lower level of care, return to [place] or leave today. Pt here for medication stabilization and placement. Assessment What has happened this shift: Patient received sleeping in bed at shift change. Shortly after he was observed walking quietly around the unit. Patient approached this news writer asking for some dope this morning. He was redirected and encouraged to join peers in the group room for breakfast. Patient continues to present as animated during interaction, pleasant, and cooperative with care. He was receptive to scheduled medication. Patient continues to deny all mental health symptoms. He does not appear to be responding to internal stimuli. Patient was observed dropping a cup of iced coffee onto the ground today. He was provided with towels to clean up the spill, assisted by staff. Patient noted making special requests for food throughout the day. He was provided with a pena and cheese burrito with his meal during lunch time. He was observed napping on and off throughout the shift. Patient noted attempting to open an emergency exit door later in the day. He was redirected away from the door. He joined for all snack and meal times in the group room with peers. S/I, H/I: Denies A/VH: Denies Sleep: Pt slept 6 hours last night per NOC shift. Napped on and off throughout this shift. ADL's: Independent Group attendance: No group provided Were Meds taken: Yes Any med S/E: None observed or reported Mental Status Exam Appearance: Casual in green scrubs. Disheveled hair. Eye contact: Good Behavior: Flat, quiet Speech: Sentences more formed today Mood: Doing fine, appears bored Affect: Blunted Thought process: Circumstantial Thought Content: Meeting needs. Cognition: A&O x3 to self, time and place Insight: Poor Judgment: Poor Interventions PRN's used: Nicotine Lozenge, Maalox Therapeutic interventions: Attempted to have patient participate in morning assessment and conversation, provided clear and simple instructions, provided direction and encouragement regarding performance of ADLs, monitored behaviors and maintained clear boundaries, provided positive reinforcement for positive behaviors and redirection for negative behaviors, and maintained Q 15min safety checks. Restraints/seclusion/emergency medication: N/A Justification of Continued Inpatient Treatment: Patient continues to require a safe and supportive environment with medication adjustment and monitoring, while awaiting LPS placement.
[2021-11-24 19:00] VITALS: BP 97/60
[2021-11-24] MEDS: guanFACINE 1 mg tablet PO SCH (20:33)
[2021-11-24] MEDS: quetiapine fumarate ER 300mg tablet PO SCH (20:33)
[2021-11-24] MEDS: mirtazapine 15mg tablet PO SCH (20:34)
--- NOTE | 2021-11-25 03:01 | NUR ---
Nursing Progress Note: Joz[facility] Legal hold: LPS Conserved Client on involuntary status for GD Report received from Sho LYONS with use of SBAR Why are they here: Pt admitted to [facility] for Behavioral health today on LPS conservatorship for Schizophrenia. Pt had escaped from this unit 4-5 days earlier. Pt walked back into the emergency room this morning. Pt has wounds to bilateral thumbs that could be cold weather injury and to L foot. Pt has been off of his meds since leaving. Pt immediately requests to go to lower level of care, return to [place] or leave today. Pt here for medication stabilization and placement. Assessment What has happened this shift: Patient laying in bed awake at the beginning of shift. Upon entering the patients room and saying hello the patient said to this process description writer to get out and he couldnt take his medications. After re-direction the patient took all medication without any issue and requested a snack. Denies SI, HI, A/VH. Pt up at 2100 and door checked. Pt easily re-directed.
[2021-11-25] MEDS: NICOTINE POLACRILEX 2 MG LOZENGE BC PRN ×2 (06:14→08:50)
[2021-11-25] MEDS: haloperidol 5mg tablet PO SCH ×3 (07:51→16:24)
[2021-11-25] MEDS: cholecalciferol (vitamin D3) 1,000 unit (25mcg) tablet PO SCH (07:51)
[2021-11-25] MEDS: benztropine 1mg tablet PO SCH ×2 (07:51→21:04)
[2021-11-25] MEDS: naltrexone 50mg tablet PO SCH (07:51)
[2021-11-25] MEDS: megestrol acetate 400mg/10ml UD oral suspension PO SCH (07:51)
[2021-11-25] MEDS: multivitamins, therapeutics tablet PO SCH (07:51)
[2021-11-25] MEDS: LORazepam 0.5 MG tablet PO SCH ×3 (07:51→21:04)
[2021-11-25 08:00] VITALS: BP 110/72
--- NOTE | 2021-11-25 16:21 | NUR ---
Nursing Progress Note: [place] Legal hold: LPS Conserved Client on involuntary status for GD Report received from Tere Chisholm RN with use of SBAR Why are they here: [facility] today on LPS conservatorship for Schizophrenia. Pt had escaped from this unit 4-5 days earlier. Pt walked back into the emergency room this morning. Pt has wounds to bilateral thumbs that could be cold weather injury and to L foot. Pt has been off of his meds since leaving. Pt immediately requests to go to lower level of care, return to [place] or leave today. Pt here for medication stabilization and placement. Assessment What has happened this shift: Patient received attempting to open emergency exit door during change of shift. Patient was redirected away from exit door and back to his room. He continues to wander around the unit and it noted opening exit doors x3 this morning. Patient noted to be impulsive, requiring frequent redirection. He received his scheduled medication this morning without hesitancy. He joined in the group room with peers for breakfast. Patient continues to present as animated during interaction, pleasant, and cooperative with care. He denies all mental health symptoms. Does not appear to be responding to internal stimuli. He was noted napping on and off throughout the shift. He joined for snack and meal times in the group room with peers. S/I, H/I: Denies A/VH: Denies Sleep: Pt slept 7 hours last night per NOC shift. Napped on and off throughout this shift. ADL's: Independent Group attendance: No group provided Were Meds taken: Yes Any med S/E: None observed or reported Mental Status Exam Appearance: Casual in green scrubs. Disheveled hair. Eye contact: Good Behavior: Animated, impulsive, social with staff Speech: Clear with some fragmented speech Mood: Appears bored, euthymic Affect: Blunted Thought process: Circumstantial, linear with some thought blocking Thought Content: Meeting needs. Cognition: A&O x3 to self, time and place Insight: Poor Judgment: Poor Interventions PRN's used: Nicotine lozenge Therapeutic interventions: 1:1 assessment, provided clear and simple instructions, provided direction and encouragement regarding performance of ADLs, monitored behaviors and maintained clear boundaries, provided positive reinforcement for positive behaviors and redirection for negative behaviors, and maintained Q 15min safety checks. Restraints/seclusion/emergency medication: N/A Justification of Continued Inpatient Treatment: Patient continues to require a safe and supportive environment with medication adjustment and monitoring, while awaiting LPS placement.
[2021-11-25] MEDS: atorvastatin 20mg tablet PO SCH (16:24)
[2021-11-25] MEDS: sertraline 50mg tablet PO SCH (16:25)
[2021-11-25 19:00] VITALS: BP 110/64
[2021-11-25] MEDS: guanFACINE 1 mg tablet PO SCH (21:04)
[2021-11-25] MEDS: quetiapine fumarate ER 300mg tablet PO SCH (21:05)
[2021-11-25] MEDS: mirtazapine 15mg tablet PO SCH (21:05)
--- NOTE | 2021-11-26 04:52 | NUR ---
Nursing Progress Note: Legal hold: LPS Conserved Client on involuntary status for GD Report received from ELOY Berkowitz with use of SBAR Why are they here: Pt admitted to [facility] for Behavioral health today on LPS conservatorship for Schizophrenia. Pt had escaped from this unit 4-5 days earlier. Pt walked back into the emergency room this morning. Pt has wounds to bilateral thumbs that could be cold weather injury and to L foot. Pt has been off of his meds since leaving. Pt immediately requests to go to lower level of care, return to [place] or leave today. Pt here for medication stabilization and placement. Assessment What has happened this shift: Patient laying in bed awake at the beginning of shift. Pleasant and cooperative with care; compliant with medication. Patient denies SI, HI, A/VH. He remained isolative to his room this shift. Patient did not drop items or push on doors this shift. Briefly came out of his room to request Nicotine lozenge and snack; observed sleeping and did not appear to be having difficulty. Discharge: [facility] is still seeking D level of care.
[2021-11-26] MEDS: NICOTINE POLACRILEX 2 MG LOZENGE BC PRN ×2 (07:07→13:33)
[2021-11-26 07:38] VITALS: BP 115/79
[2021-11-26] MEDS: multivitamins, therapeutics tablet PO SCH (07:49)
[2021-11-26] MEDS: cholecalciferol (vitamin D3) 1,000 unit (25mcg) tablet PO SCH (07:49)
[2021-11-26] MEDS: haloperidol 5mg tablet PO SCH ×3 (07:49→16:56)
[2021-11-26] MEDS: LORazepam 0.5 MG tablet PO SCH ×3 (07:49→20:15)
[2021-11-26] MEDS: guanFACINE 1 mg tablet PO SCH ×2 (07:49→20:00)
[2021-11-26] MEDS: naltrexone 50mg tablet PO SCH (07:49)
[2021-11-26] MEDS: benztropine 1mg tablet PO SCH ×2 (07:49→20:15)
[2021-11-26] MEDS: megestrol acetate 400mg/10ml UD oral suspension PO SCH (07:49)
--- NOTE | 2021-11-26 16:29 | NUR ---
Nursing Progress Note: [place] Legal hold: LPS Conserved Client on involuntary status for GD Report received from Tere Chisholm RN with use of SBAR Why are they here: Pt admitted to [facility] for Behavioral health today on LPS conservatorship for Schizophrenia. Pt had escaped from this unit 4-5 days earlier. Pt walked back into the emergency room this morning. Pt has wounds to bilateral thumbs that could be cold weather injury and to L foot. Pt has been off of his meds since leaving. Pt immediately requests to go to lower level of care, return to [place] or leave today. Pt here for medication stabilization and placement. Assessment What has happened this shift: Patient received sleeping in his room at shift change. He was noted walking around the unit shortly after, approaching this senior writer for a nicotine lozenge. Patient provided with a cup of iced coffee this morning per his request. He received his scheduled medication without hesitancy. Patient proceeded to drop the coffee onto the ground seconds after being handed the cup. Staff assisted patient and he cleaned up the spill. Patient denies SI/HI, AH or VH. Does not appear to be responding to internal stimuli. Patient asked this senior writer for a pen and paper which was provided to him. Within a minute later he was noted returning the pen back to the nurses station and throwing away the paper. He is noted to be impulsive, yet pleasant and cooperative with care. Patient endorsed that he is working toward a good positive mood. He approached this senior writer asking for juice and snacks throughout the day. Patient asked for a warm blanket and was observed taking a nap later in the day. He joined for all snack and meal times in the group room with peers. S/I, H/I: Denies A/VH: Denies Sleep: Pt slept 6 hours last night per NOC shift. Napped on and off throughout this shift. ADL's: Independent Group attendance: No Were Meds taken: Yes Any med S/E: None observed or reported Mental Status Exam Appearance: Casual in green scrubs. Disheveled hair. Eye contact: Good Behavior: Animated, impulsive, social with staff Speech: Clear with some fragmented speech Mood: Appears bored, euthymic Affect: Blunted Thought process: Circumstantial, linear with some thought blocking Thought Content: Meeting needs. Cognition: A&O x3 to self, time and place Insight: Poor Judgment: Poor Interventions PRN's used: Nicotine lozenge Therapeutic interventions: 1:1 assessment, provided clear and simple instructions, provided direction and encouragement regarding performance of ADLs, monitored behaviors and maintained clear boundaries, provided positive reinforcement for positive behaviors and redirection for negative behaviors, and maintained Q 15min safety checks. Restraints/seclusion/emergency medication: N/A Justification of Continued Inpatient Treatment: Patient continues to require a safe and supportive environment with medication adjustment and monitoring, while awaiting LPS placement.
[2021-11-26] MEDS: sertraline 50mg tablet PO SCH (16:56)
[2021-11-26] MEDS: atorvastatin 20mg tablet PO SCH (16:56)
[2021-11-26 19:00] VITALS: BP 98/62
[2021-11-26] MEDS: quetiapine fumarate ER 300mg tablet PO SCH (20:15)
[2021-11-26] MEDS: mirtazapine 15mg tablet PO SCH (20:15)
--- NOTE | 2021-11-27 05:18 | NUR ---
Nursing Progress Note: Legal hold: LPS Conserved Client on involuntary status for GD Report received from ELOY Esteban with use of SBAR Why are they here: Pt admitted to [place] for Behavioral health today on LPS conservatorship for Schizophrenia. Pt had escaped from this unit 4-5 days earlier. Pt walked back into the emergency room this morning. Pt has wounds to bilateral thumbs that could be cold weather injury and to L foot. Pt has been off of his meds since leaving. Pt immediately requests to go to lower level of care, return to [place] or leave today. Pt here for medication stabilization and placement. Assessment What has happened this shift: Patient laying in bed awake at the beginning of shift. Pleasant and cooperative with care; compliant with medication. Patient remained in his room other than to request snacks this shift; did not drop food/drinks when provided and did not appear to be throwing uneaten items away. Patient is observed sleeping and does not appear to be having difficulty. Discharge: [facility] is still seeking D level of care.
[2021-11-27 07:00] VITALS: BP 100/60
[2021-11-27] MEDS: naltrexone 50mg tablet PO SCH (07:09)
[2021-11-27] MEDS: multivitamins, therapeutics tablet PO SCH (07:09)
[2021-11-27] MEDS: megestrol acetate 400mg/10ml UD oral suspension PO SCH (07:09)
[2021-11-27] MEDS: cholecalciferol (vitamin D3) 1,000 unit (25mcg) tablet PO SCH (07:09)
[2021-11-27] MEDS: benztropine 1mg tablet PO SCH ×2 (07:09→20:29)
[2021-11-27] MEDS: haloperidol 5mg tablet PO SCH ×3 (07:09→16:54)
[2021-11-27] MEDS: NICOTINE POLACRILEX 2 MG LOZENGE BC PRN ×2 (07:14→10:35)
[2021-11-27] MEDS: LORazepam 0.5 MG tablet PO SCH ×3 (07:14→20:29)
[2021-11-27 07:50] VITALS: BP 102/70
[2021-11-27] MEDS: guanFACINE 1 mg tablet PO SCH ×2 (08:00→20:00)
--- NOTE | 2021-11-27 15:56 | NUR ---
Nursing Progress Note: Legal hold: LPS Client on involuntary status for GD Report received from nurse with use of SBAR: Tere Salas RN Why are they here: [facility] LPS conservatorship for Schizophrenia. Pt had escaped from this unit 4-5 days earlier. Pt walked back into the emergency room this morning. Pt has wounds to bilateral thumbs that could be cold weather injury and to L foot. Pt has been off of his meds since leaving. Pt immediately requests to go to lower level of care, return to [place] or leave today. Pt here for medication stabilization and placement. Assessment What has happened this shift: Received pt. awake and pacing in the hallway at the beginning of the shift. He immediately requested coffee and perseverated on obtaining different items as is his routine. Pt. was given coffee which he immediately dropped on the floor with what seemed like intent. He then came to this story writer requesting an additional cup of coffee, stating, "It's bull s...t! They (staff members) keep making me drop it!" Pt. was provided with redirection and clear boundaries were maintained, he was provided education that he could not have more coffee until after breakfast and reported understanding. This story writer then attempted to complete 1:1, however pt. hastily denies all MH s/s and perseverates on his desire to discharge. Pt's scheduled Tenex was held r/t decreased BP, endorsed to JEM Gaona. Pt. napped intermittently during the day and continues to exhibit ritualistic/repetitive movements at intervals as is his routine, however these appear less pronounced. Pt. did not exhibit any further adverse behaviors this shift, however he continues to require clear boundaries and positive reinforcement. S/I, H/I: Denies A/VH: Unable to assess due to inconsistency of response. Does not appear to be internally preoccupied at times AEB distractibility Sleep: Sleep hours are 6.5, and pt. naps intermittently during the shift ADL's: Requires direction and encouragement. Ambulation is start and stop with ongoing ritualistic behaviors Group attendance: N/A Were meds taken: Yes Any med S/E: None Mental Status Exam Appearance: Somewhat disheveled, however appropriately dressed Eye contact: Fair Behavior: Cooperative, restless, guarded, withdrawn, ritualistic/repetitive, and impulsive Speech: Fragmented sentences Mood: Guarded Affect: Blunted Thought process: Fragmented with some disorganization at times Thought Content:Perseveration on desire to discharge and obtaining different items Cognition: A&O x3 Insight: Poor Judgment: Poor Interventions PRN's used: nicotine Lozenge Therapeutic interventions: Maintained a safe and supportive environment, ensured contract for safety, provided clear and simple instructions, provided direction and encouragement regarding performance of ADLs, monitored behaviors and maintained clear boundaries, provided positive reinforcement, and maintained Q 15min safety checks. Restraints/seclusion/emergency medication: N/A Justification of Continued Inpatient Treatment: JEM Cervantes, pt. continues to require a safe and supportive environment while awaiting placement.
[2021-11-27] MEDS: atorvastatin 20mg tablet PO SCH (16:54)
[2021-11-27] MEDS: sertraline 50mg tablet PO SCH (16:55)
[2021-11-27 19:44] VITALS: BP 102/64
[2021-11-27] MEDS: mirtazapine 15mg tablet PO SCH (20:29)
[2021-11-27] MEDS: quetiapine fumarate ER 300mg tablet PO SCH (20:29)
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
[2021-11-28 07:30] VITALS: BP 106/82
[2021-11-28] MEDS: guanFACINE 1 mg tablet PO SCH ×2 (07:38→20:00)
[2021-11-28] MEDS: naltrexone 50mg tablet PO SCH (07:38)
[2021-11-28] MEDS: cholecalciferol (vitamin D3) 1,000 unit (25mcg) tablet PO SCH (07:38)
[2021-11-28] MEDS: haloperidol 5mg tablet PO SCH ×3 (07:38→16:07)
[2021-11-28] MEDS: benztropine 1mg tablet PO SCH ×2 (07:38→20:17)
[2021-11-28] MEDS: multivitamins, therapeutics tablet PO SCH (07:38)
[2021-11-28] MEDS: LORazepam 0.5 MG tablet PO SCH ×3 (07:38→20:17)
[2021-11-28] MEDS: megestrol acetate 400mg/10ml UD oral suspension PO SCH (08:24)
[2021-11-28] MEDS: NICOTINE POLACRILEX 2 MG LOZENGE BC PRN (08:27)
--- NOTE | 2021-11-28 10:00 | NUR ---
Reassessment: Pt continues w/ variable intake, avg 32% x 9 meals. Per metal leaf layer pt has been participating in snacks and occasionally drops drinks. Recommend continuing to offer snacks to optimize PO intake since pt gravitates towards snacks. D/w dietary to send some grill items with lunches to see if pt will be more accepting of that rather than the standard meals as pt requesting food like pizza (unfortunately not available from kitchen) and tator tots. Noted that pt was able to purchase a soda from the cafe w/ a debit card. LBM 11/24, with PRN bowel care available. Will continue to follow Recommendations: 1. Continue regular diet 2. Milkshake TIDWM; trial grill items with lunches 3. Encourage PO intake of meals/snacks; honor food preferences as able 4. Continue routine appetite stimulant and MVI 5. Initiate nutrition support if physician agreeable and within POC given continued poor PO intake of meals since admit 4 months 6. Routine bowel care 7. Weekly scaled weights Addendum: 11/28/21 at [address] Amended: Links added.
--- NOTE | 2021-11-28 11:54 | NUR ---
GOOD BEHAVIOR Purchased Jozef cookies and a mug rootbeer since he has had a good morning and went to group today. JAYCEE Aiken
[2021-11-28] MEDS: sertraline 50mg tablet PO SCH (16:07)
[2021-11-28] MEDS: atorvastatin 20mg tablet PO SCH (16:07)
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
[2021-11-28 19:39] VITALS: BP 102/67
[2021-11-28] MEDS: mirtazapine 15mg tablet PO SCH (20:17)
[2021-11-28] MEDS: quetiapine fumarate ER 300mg tablet PO SCH (20:17)
--- NOTE | 2021-11-29 05:07 | NUR ---
Nursing Progress Note: Legal hold: LPS Conserved Client on involuntary status for GD Report received from ELOY Berkowitz with use of SBAR Why are they here: Pt admitted to [place] for Behavioral health today on LPS conservatorship for Schizophrenia. Pt had escaped from this unit 4-5 days earlier. Pt walked back into the emergency room this morning. Pt has wounds to bilateral thumbs that could be cold weather injury and to L foot. Pt has been off of his meds since leaving. Pt immediately requests to go to lower level of care, return to [place] or leave today. Pt here for medication stabilization and placement. Assessment What has happened this shift: Patient awake in his room at the beginning of shift. Pleasant and cooperative with care; compliant with medication. Patient remained in his room the majority of shift; only coming out to request snacks. Patient is observed sleeping and does not appear to be having difficulty. Discharge: [facility] is still seeking IMD level of care.
[2021-11-29] MEDS: haloperidol 5mg tablet PO SCH ×3 (07:41→16:31)
[2021-11-29] MEDS: multivitamins, therapeutics tablet PO SCH (07:41)
[2021-11-29] MEDS: cholecalciferol (vitamin D3) 1,000 unit (25mcg) tablet PO SCH (07:41)
[2021-11-29] MEDS: benztropine 1mg tablet PO SCH ×2 (07:41→21:15)
[2021-11-29] MEDS: guanFACINE 1 mg tablet PO SCH ×2 (07:41→20:00)
[2021-11-29] MEDS: LORazepam 0.5 MG tablet PO SCH ×3 (07:41→21:15)
[2021-11-29] MEDS: megestrol acetate 400mg/10ml UD oral suspension PO SCH (07:42)
[2021-11-29] MEDS: naltrexone 50mg tablet PO SCH (07:42)
[2021-11-29 08:00] VITALS: BP 113/67
[2021-11-29] MEDS: acetaminophen 325mg tablet PO PRN (10:50)
[2021-11-29] MEDS: sertraline 50mg tablet PO SCH (16:30)
[2021-11-29] MEDS: atorvastatin 20mg tablet PO SCH (16:31)
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
[2021-11-29] MEDS: NICOTINE POLACRILEX 2 MG LOZENGE BC PRN (16:43)
[2021-11-29 19:27] VITALS: BP 105/69
[2021-11-29] MEDS: quetiapine fumarate ER 300mg tablet PO SCH (21:15)
[2021-11-29] MEDS: mirtazapine 15mg tablet PO SCH (21:15)
[2021-11-30] MEDS: NICOTINE POLACRILEX 2 MG LOZENGE BC PRN ×2 (05:48→08:06)
--- NOTE | 2021-11-30 06:08 | NUR ---
Nursing Progress Note: Legal hold: LPS Conserved Client on involuntary status for GD Report received from ELOY Berkowitz with use of SBAR Why are they here: Pt admitted to [place] for Behavioral health today on LPS conservatorship for Schizophrenia. Pt had escaped from this unit 4-5 days earlier. Pt walked back into the emergency room this morning. Pt has wounds to bilateral thumbs that could be cold weather injury and to L foot. Pt has been off of his meds since leaving. Pt immediately requests to go to lower level of care, return to [place] or leave today. Pt here for medication stabilization and placement. Assessment What has happened this shift: Patient laying in bed awake in bed at the beginning of shift. Pleasant and cooperative with care; compliant with medication. Patient ate snacks in his room but remained there for the night. Patient woke up early, appearing happy, and social this morning. Joking with marketing writer and talking about missing riding his bike. Discharge: [facility] is still seeking IMD level of care.
[2021-11-30 07:30] VITALS: BP 104/70
[2021-11-30] MEDS: benztropine 1mg tablet PO SCH ×2 (07:57→20:25)
[2021-11-30] MEDS: cholecalciferol (vitamin D3) 1,000 unit (25mcg) tablet PO SCH (07:57)
[2021-11-30] MEDS: guanFACINE 1 mg tablet PO SCH ×2 (07:58→20:25)
[2021-11-30] MEDS: naltrexone 50mg tablet PO SCH (07:58)
[2021-11-30] MEDS: LORazepam 0.5 MG tablet PO SCH ×3 (07:58→20:25)
[2021-11-30] MEDS: multivitamins, therapeutics tablet PO SCH (07:58)
[2021-11-30] MEDS: haloperidol 5mg tablet PO SCH ×3 (07:58→16:48)
[2021-11-30] MEDS: megestrol acetate 400mg/10ml UD oral suspension PO SCH (07:58)
--- NOTE | 2021-11-30 11:15 | NUR ---
GOOD BEHAVIOR Jozef earned donuts for good behavior this morning. Donuts were purchased with Jozef's debit card. JAYCEE Aiken
[2021-11-30] MEDS: sertraline 50mg tablet PO SCH (16:48)
[2021-11-30] MEDS: atorvastatin 20mg tablet PO SCH (16:48)
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
[2021-11-30 19:41] VITALS: BP 106/71
[2021-11-30] MEDS: quetiapine fumarate ER 300mg tablet PO SCH (20:25)
[2021-11-30] MEDS: mirtazapine 15mg tablet PO SCH (20:25)
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
--- NOTE | 2021-12-01 07:12 | NUR ---
PLACEMENT UPDATE Sent updated notes to [facility] office for placement purposes. [facility] is seeking IMD level of care. Clients packet is in the queue at [facility], [facility], [facility], and [facility]. Client has been declined at [facility], [facility], [facility], [facility], [facility], and [facility]. JAYCEE Aiken Addendum: 12/01/21 at 0716 by Pia Fajardo SS Sent notes 11/24-11/30.
[2021-12-01] MEDS: cholecalciferol (vitamin D3) 1,000 unit (25mcg) tablet PO SCH (07:13)
[2021-12-01] MEDS: LORazepam 0.5 MG tablet PO SCH ×3 (07:14→19:57)
[2021-12-01] MEDS: multivitamins, therapeutics tablet PO SCH (07:14)
[2021-12-01] MEDS: benztropine 1mg tablet PO SCH ×2 (07:14→19:57)
[2021-12-01] MEDS: naltrexone 50mg tablet PO SCH (07:14)
[2021-12-01] MEDS: megestrol acetate 400mg/10ml UD oral suspension PO SCH (07:14)
[2021-12-01] MEDS: NICOTINE POLACRILEX 2 MG LOZENGE BC PRN ×2 (07:14→08:49)
[2021-12-01] MEDS: haloperidol 5mg tablet PO SCH ×3 (07:14→17:12)
[2021-12-01 07:55] VITALS: BP 100/68
[2021-12-01] MEDS: guanFACINE 1 mg tablet PO SCH ×2 (08:00→19:58)
--- NOTE | 2021-12-01 14:32 | NUR ---
Nursing Progress Note: Legal hold: LPS Client on involuntary status for GD Report received from nurse with use of SBAR: ELYO Alexis Why are they here: Pt admitted to [place] for Behavioral health today on LPS conservatorship for Schizophrenia. Pt had escaped from this unit 4-5 days earlier. Pt walked back into the emergency room this morning. Pt has wounds to bilateral thumbs that could be cold weather injury and to L foot. Pt has been off of his meds since leaving. Pt immediately requests to go to lower level of care, return to [place] or leave today. Pt here for medication stabilization and placement. Assessment What has happened this shift: Received pt. awake and pacing in the hallway at the beginning of the shift. He again immediately began requesting coffee and different food items from multiple staff members as is his routine. Pt. was given coffee at bedside, which he again immediately dropped on the floor with what seemed like intent. Again, he began requesting an additional cup of coffee from multiple staff members and making possible paranoid delusional statements, "You guys are all against me, you keep making me do this!" Pt. was provided with redirection and clear boundaries were maintained, he was provided education that he could not have more coffee until after snack time and became argumentative later reporting some understanding. During breakfast, pt. threw food items onto another peers tray. He then called this pt. a f...ing b...., and had to be asked to leave the dining room. Pt. again became argumentative and irritable when confronted by this technical writer and editor regarding his behaviors stating, "Get out of my room punk!" Additional education was provided, and pt. later reported some understanding. Pt's scheduled Tenex was again held r/t decreased BP, endorsed to Dr. Newell. Pt. remained up throughout the day and was observed to be withdrawn, however appropriate with others. No further adverse behaviors were exhibited this shift, however he continues to require clear boundaries and positive reinforcement. S/I, H/I: Denies A/VH: Unable to assess due to inconsistency of response. Does not appear to be internally preoccupied at times AEB distractibility Sleep: Sleep hours are 6.5, and pt. naps intermittently during the shift ADL's: Requires direction and encouragement. Ambulation is start and stop with some ongoing ritualistic behaviors Group attendance: No Were meds taken: Yes Any med S/E: None Mental Status Exam Appearance: Somewhat disheveled, however appropriately dressed Eye contact: Fair Behavior: Cooperative, restless, guarded, withdrawn, ritualistic/repetitive, irritable at times, and impulsive Speech: Fragmented sentences, becomes argumentative at times Mood: Guarded Affect: Blunted Thought process: Fragmented with some disorganization at times Thought Content:Perseveration on desire to discharge and obtaining different items. Possible paranoid delusions Cognition: A&O x3 Insight: Poor Judgment: Poor Interventions PRN's used: nicotine Lozenge Therapeutic interventions: Maintained a safe and supportive environment, ensured contract for safety, provided clear and simple instructions, provided direction and encouragement regarding performance of ADLs, monitored behaviors and maintained clear boundaries, provided positive reinforcement, and maintained Q 15min safety checks. Restraints/seclusion/emergency medication: N/A Justification of Continued Inpatient Treatment: Per Dr. Newell, pt. continues to require a safe and supportive environment while awaiting placement at an [facility]
--- NOTE | 2021-12-01 15:00 | NUR ---
Good behavior: Pt has had good behavior today. Pt had donut bought for him for his good behavior. Pt continued good behavior and was given second donut.
[2021-12-01] MEDS: sertraline 50mg tablet PO SCH (17:12)
[2021-12-01] MEDS: atorvastatin 20mg tablet PO SCH (17:12)
[2021-12-01] MEDS: quetiapine fumarate ER 300mg tablet PO SCH (19:57)
[2021-12-01] MEDS: mirtazapine 15mg tablet PO SCH (19:57)
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
[2021-12-02] MEDS: NICOTINE POLACRILEX 2 MG LOZENGE BC PRN (06:17)
[2021-12-02] MEDS: cholecalciferol (vitamin D3) 1,000 unit (25mcg) tablet PO SCH (07:56)
[2021-12-02] MEDS: multivitamins, therapeutics tablet PO SCH (07:57)
[2021-12-02] MEDS: benztropine 1mg tablet PO SCH ×2 (07:57→19:44)
[2021-12-02] MEDS: LORazepam 0.5 MG tablet PO SCH ×3 (07:57→19:45)
[2021-12-02] MEDS: haloperidol 5mg tablet PO SCH ×3 (07:58→16:17)
[2021-12-02] MEDS: megestrol acetate 400mg/10ml UD oral suspension PO SCH (07:58)
[2021-12-02] MEDS: naltrexone 50mg tablet PO SCH (07:58)
[2021-12-02 08:00] VITALS: BP 91/71
[2021-12-02] MEDS: guanFACINE 1 mg tablet PO SCH ×2 (08:00→19:45)
--- NOTE | 2021-12-02 15:41 | NUR ---
Reassessment: PO intake continues to fluctuate, documented with 100% PO intake at dinner 11/28 and breakfast 11/29, though back down to 25-50% with meal refusals the following meals. Pt receiving grill items with lunches in hopes of optimizing PO intake. Noted pt receiving additional food from RN as a "reward" though only occasionally participating in snacks. Recommend continuing to encourage PO intake. Pt continues receiving an appetite stimulant. LBM 12/01. Will continue to follow. Recommendations: 1. Continue regular diet 2. Milkshake TIDWM; trial grill items with lunches 3. Encourage PO intake of meals/snacks; honor food preferences as able 4. Continue routine appetite stimulant and MVI 5. Initiate nutrition support if physician agreeable and within POC given continued poor PO intake of meals since admit 4 months 6. Routine bowel care 7. Weekly scaled weights Addendum: 12/02/21 at [address] Amended: Links added.
--- NOTE | 2021-12-02 15:54 | NUR ---
Nursing Progress Note: [place] Legal hold: [facility] Client on involuntary status for GD Report received from nurse with use of SBAR: Tere Salas RN Why are they here: [facility] LPS conservatorship for Schizophrenia. Pt had escaped from this unit 4-5 days earlier. Pt walked back into the emergency room this morning. Pt has wounds to bilateral thumbs that could be cold weather injury and to L foot. Pt has been off of his meds since leaving. Pt immediately requests to go to lower level of care, return to [place] or leave today. Pt here for medication stabilization and placement. Assessment What has happened this shift: Received pt. awake and pacing in the hallway with staff monitoring d/t a restless night of checking doors. Pt. received his medication and was compliant. 1:1 assessment completed in the bernard over several interactions d/t pt. ritualistic ambulation and jumps, in addition fragmented speech hinders complete sentences. Pt. ate his meals in the dining room with cohorts, but remains withdrawn and doesnt engage socially. Pt. spent most of the shift pacing the unit. He requested the phone only to drop it on the floor; staff needed to assist. pt. to dial etc. Pt. approached check writer salesperson stating Im ready to go, place, you know pt. napped for awhile and got OOB to participate in snack at which time he dropped his coffee cup on the floor.Pt's scheduled Tenex was held r/t decreased BP, endorsed to provider. S/I, H/I: Denies A/VH: Denies; no signs of internal preoccupation Sleep: 5 hrs per NOC shift, one hour nap ADL's: Requires direction and encouragement Group attendance: No Were meds taken: Yes Any med S/E: None Mental Status Exam Appearance: Young male, pale, disheveled, and wearing unit scrubs Eye contact: Fair Behavior: Restless, withdrawn, Speech: Fragmented Mood: Guarded Affect: Blunted Thought process: Disorganization at times Thought Content: Perseverates on going somewhere else. Cognition: A&O x3 Insight: Poor Judgment: Poor Interventions PRN's used: None Therapeutic interventions: Maintained a safe and supportive environment, ensured contract for safety, provided clear and simple instructions, provided direction and encouragement regarding performance of ADLs, monitored behaviors and maintained clear boundaries, provided positive reinforcement, and maintained Q 15min safety checks. Restraints/seclusion/emergency medication: N/A Justification of Continued Inpatient Treatment: Per Dr. Newell, pt. continues to require a safe and supportive environment while awaiting placement at an IMD
[2021-12-02] MEDS: atorvastatin 20mg tablet PO SCH (16:17)
[2021-12-02] MEDS: sertraline 50mg tablet PO SCH (16:17)
[2021-12-02] MEDS: quetiapine fumarate ER 300mg tablet PO SCH (19:45)
[2021-12-02] MEDS: mirtazapine 15mg tablet PO SCH (19:45)
[2021-12-02 20:00] VITALS: BP 107/68
--- NOTE | 2021-12-03 04:22 | NUR ---
Nursing Progress Note: Jozef Legal hold: LPS Client on involuntary status for GD Why are they here: Pt admitted to [facility] for [facility] health today on LPS conservatorship for Schizophrenia. Pt had escaped from this unit 4-5 days earlier. Pt walked back into the emergency room this morning. Pt has wounds to bilateral thumbs that could be cold weather injury and to L foot. Pt has been off of his meds since leaving. Pt immediately requests to go to lower level of care, return to [place] or leave today. Pt here for medication stabilization and placement. Assessment What has happened this shift: Pt is in his bed and is a LOS. Pt took medication crushed in applesauce, Tenex held d/t lower blood pressure. Pt dropped his coffee and water. Pt asked for chocolate. He is agreeable to an assessment but only responds with sure to questions. pt walking the hallway with sitter then returns back to his bed. Pt resting in his bed. pt denies S/I and H/I. pt denies A/VH. Justification of Continued Inpatient Treatment: Per Dr. Newell, pt. continues to require a safe and supportive environment while awaiting placement at an IMD Discharge: LPS conserved and to find placement when stable
[2021-12-03] MEDS: LORazepam 0.5 MG tablet PO SCH ×3 (07:48→20:19)
[2021-12-03] MEDS: multivitamins, therapeutics tablet PO SCH (07:48)
[2021-12-03] MEDS: haloperidol 5mg tablet PO SCH ×3 (07:48→16:10)
[2021-12-03] MEDS: cholecalciferol (vitamin D3) 1,000 unit (25mcg) tablet PO SCH (07:48)
[2021-12-03] MEDS: naltrexone 50mg tablet PO SCH (07:48)
[2021-12-03] MEDS: benztropine 1mg tablet PO SCH ×2 (07:48→20:19)
[2021-12-03] MEDS: guanFACINE 1 mg tablet PO SCH (07:48)
[2021-12-03] MEDS: megestrol acetate 400mg/10ml UD oral suspension PO SCH (07:49)
[2021-12-03 08:00] VITALS: BP 111/72
[2021-12-03] MEDS: NICOTINE POLACRILEX 2 MG LOZENGE BC PRN (08:09)
--- NOTE | 2021-12-03 15:27 | NUR ---
Nursing Progress Note: [place] Legal hold: [facility] Client on involuntary status for GD Report received from nurse with use of SBAR: Tere Salas RN Why are they here: [facility] LPS conservatorship for Schizophrenia. Pt had escaped from this unit 4-5 days earlier. Pt walked back into the emergency room this morning. Pt has wounds to bilateral thumbs that could be cold weather injury and to L foot. Pt has been off of his meds since leaving. Pt immediately requests to go to lower level of care, return to [place] or leave today. Pt here for medication stabilization and placement. Assessment What has happened this shift: Received pt. awake and in bed. Pt. received his medications and 1:1 assessment completed at the bedside. Pt. denies SI, HI, but would not go further into conversation. Pt. hopped nad skipped out of his room. Later pt. requested coffee from staff, and he was provided iced coffee and immediately dropped it on the floor. Within minutes he requested more coffee, which teletypewriter installer was not willing to provide. Regulatory Product Manager offered alternative of juice enclosed in a box but pt. became agitated stating come on, youre the same Pt. ate his meals in the dining room with cohorts and sat at a table with others. He continues to be withdrawn socially and often was observed pacing the bernard in a ritualist stepping pattern. He requested nicotine and PRN lozenge was given. Pt. took a one hour nap this morning and participated in all snacks. S/I, H/I: Denies A/VH: Denies; no signs of internal preoccupation Sleep: 5 hrs per NOC shift, one hour nap ADL's: Requires direction and encouragement Group attendance: N/A Were meds taken: Yes Any med S/E: None Mental Status Exam Appearance: Young male, pale, disheveled, and wearing unit scrubs Eye contact: Fair Behavior: Restless, withdrawn Speech: Fragmented Mood: Upbeat Affect: Blunted Thought process: Disorganized Thought Content: Perseverates on coffee. Cognition: A&O x3 Insight: Poor Judgment: Poor Interventions PRN's used: Nicotine lozenge Therapeutic interventions: Maintained a safe and supportive environment, ensured contract for safety, provided clear and simple instructions, provided direction and encouragement regarding performance of ADLs, monitored behaviors and maintained clear boundaries, provided positive reinforcement, and maintained Q 15min safety checks. Restraints/seclusion/emergency medication: N/A Justification of Continued Inpatient Treatment: Per Dr. Newell, pt. continues to require a safe and supportive environment while awaiting placement at an D
[2021-12-03] MEDS: atorvastatin 20mg tablet PO SCH (16:10)
[2021-12-03] MEDS: sertraline 50mg tablet PO SCH (16:10)
[2021-12-03 19:50] VITALS: BP 110/80
[2021-12-03] MEDS: quetiapine 100mg tablet PO SCH (20:19)
[2021-12-03] MEDS: mirtazapine 15mg tablet PO SCH (20:19)
[2021-12-04] MEDS ORDERED: quetiapine 100mg tablet PO ONE (01:20)
--- NOTE | 2021-12-04 01:40 | NUR ---
Nursing Progress Note Legal hold: LPS Why are they here: Pt admitted to [facility] for [facility] health on LPS conservatorship for Schizophrenia. Pt here for medication stabilization and placement. Assessment What has happened this shift: Pt continues to be on LOS elopement risk. He isolates to his room for most of the shift aside from coming out to ask for things. Pt allows RN to do a physical assessment. When asked what he is thinking about he responds, "thinking about home." RN asks what home is like for him and he cannot come up with a response, although he does say if he could have a pet it would be a dog. pt denies S/I and H/I. pt denies A/VH. Pt reluctantly takes his hs medications in applesauce. He wakes up around 0130 and asks for a small snack, which is given to him. He is able to fall asleep soon after again. Justification of Continued Inpatient Treatment: Per Dr. Newell, pt. continues to require a safe and supportive environment while awaiting placement at an IMD Discharge: LPS conserved and to find placement when stable
[2021-12-04] MEDS: megestrol acetate 400mg/10ml UD oral suspension PO SCH (07:30)
[2021-12-04] MEDS: multivitamins, therapeutics tablet PO SCH (07:30)
[2021-12-04] MEDS: naltrexone 50mg tablet PO SCH (07:30)
[2021-12-04] MEDS: LORazepam 0.5 MG tablet PO SCH ×3 (07:30→20:36)
[2021-12-04] MEDS: haloperidol 5mg tablet PO SCH ×3 (07:30→16:00)
[2021-12-04] MEDS: benztropine 1mg tablet PO SCH ×2 (07:30→20:36)
[2021-12-04] MEDS: cholecalciferol (vitamin D3) 1,000 unit (25mcg) tablet PO SCH (07:31)
[2021-12-04] MEDS: guanFACINE 1 mg tablet PO SCH (07:33)
[2021-12-04 08:00] VITALS: BP 97/63
[2021-12-04] MEDS: NICOTINE POLACRILEX 2 MG LOZENGE BC PRN ×3 (09:38→13:54)
[2021-12-04] MEDS: atorvastatin 20mg tablet PO SCH (15:58)
[2021-12-04] MEDS: sertraline 50mg tablet PO SCH (15:58)
--- NOTE | 2021-12-04 16:37 | NUR ---
Nursing Progress Note: [place]oz[place] Legal hold: LPS Conserved Client on involuntary status for GD Report received from RN with use of SBAR Why are they here: Pt admitted to [facility] for [facility] health today on LPS conservatorship for Schizophrenia. Pt had escaped from this unit 4-5 days earlier. Pt walked back into the emergency room this morning. Pt has wounds to bilateral thumbs that could be cold weather injury and to L foot. Pt has been off of his meds since leaving. Pt immediately requests to go to lower level of care, return to [facility] or leave today. Pt here for medication stabilization and placement. Assessment What has happened this shift: Patient has hardly been in room, has not napped throughout the shift. He has been pacing in halls and sitting in community room throughout shift. He constantly approaches nurse station to ask for coffee, update on plan of care and nicotine lozenge. Patient has to constantly be reminded to not drop any food/drinks/medication on floor. He says voices in his head tell him to drop the medication. Patient became upset with staff editor as she tried to explain to me the meal/drink times and protocols of the unit and called her a b. Patient continues to request food and coffee despite being told there are designated times for that. S/I, H/I: Denies A/VH: Denies Sleep: Pt slept 5 hours last night per NOC shift ADL's: Independent Group attendance: n/a Were Meds taken: Yes Any med S/E: None observed or reported Mental Status Exam Appearance: Casual in green scrubs. Disheveled hair. Eye contact: Good Behavior: Animated, impulsive, social with staff Speech: Clear with some fragmented speech Mood: Appears bored, euthymic Affect: Blunted Thought process: Circumstantial, linear with some thought blocking Thought Content: Meeting needs. Cognition: A&O x3 to self, time and place Insight: Poor Judgment: Poor Interventions PRN's used: Nicotine lozenge Therapeutic interventions: 1:1 assessment, provided clear and simple instructions, provided direction and encouragement regarding performance of ADLs, monitored behaviors and maintained clear boundaries, provided positive reinforcement for positive behaviors and redirection for negative behaviors, and maintained Q 15min safety checks. Restraints/seclusion/emergency medication: N/A Justification of Continued Inpatient Treatment: Patient continues to require a safe and supportive environment with medication adjustment and monitoring, while awaiting LPS placement.
[2021-12-04] MEDS: quetiapine 100mg tablet PO SCH (20:36)
[2021-12-04] MEDS: mirtazapine 15mg tablet PO SCH (20:36)
[2021-12-04 20:44] VITALS: BP 114/80
[2021-12-04] MEDS ORDERED: quetiapine 100mg tablet PO SCH (21:00)
--- NOTE | 2021-12-05 02:35 | NUR ---
Nursing Progress Note: Legal hold: LPS Conserved Client on involuntary status for GD Report received from RN with use of SBAR Why are they here: Pt admitted to [facility] for [facility] health today on LPS conservatorship for Schizophrenia. Pt had escaped from this unit 4-5 days earlier. Pt walked back into the emergency room this morning. Pt has wounds to bilateral thumbs that could be cold weather injury and to L foot. Pt has been off of his meds since leaving. Pt immediately requests to go to lower level of care, return to [place] or leave today. Pt here for medication stabilization and placement. Assessment What has happened this shift: Pt remained in room all shift. Pleasant and cooperative took all medications opened mouth willingly to check for cheeking. Declined to come to group room for snack. Went to sleep early. S/I, H/I: Denies A/VH: Denies Sleep: Pt slept 5 hours last night per NOC shift ADL's: Independent Group attendance: n/a Were Meds taken: Yes Any med S/E: None observed or reported Mental Status Exam Appearance: Casual in green scrubs. Disheveled hair. Eye contact: Good Behavior: Animated, impulsive, social with staff Speech: Clear with some fragmented speech Mood: Appears bored, euthymic Affect: Blunted Thought process: Circumstantial, linear with some thought blocking Thought Content: Meeting needs. Cognition: A&O x3 to self, time and place Insight: Poor Judgment: Poor Interventions PRN's used: none Therapeutic interventions: 1:1 assessment, provided clear and simple instructions, provided direction and encouragement regarding performance of ADLs, monitored behaviors and maintained clear boundaries, provided positive reinforcement for positive behaviors and redirection for negative behaviors, and maintained Q 15min safety checks. Restraints/seclusion/emergency medication: N/A Justification of Continued Inpatient Treatment: Patient continues to require a safe and supportive environment with medication adjustment and monitoring, while awaiting LPS placement.
--- NOTE | 2021-12-05 03:36 | NUR ---
Pt set off alarm in room then came out and ran to exterior bernard door giving it a karate kick. Assisted back to room by staff resumed LOS.
[2021-12-05] MEDS: NICOTINE POLACRILEX 2 MG LOZENGE BC PRN ×3 (06:46→13:33)
[2021-12-05 08:00] VITALS: BP 106/83
[2021-12-05] MEDS: guanFACINE 1 mg tablet PO SCH (08:00)
[2021-12-05] MEDS: cholecalciferol (vitamin D3) 1,000 unit (25mcg) tablet PO SCH (08:31)
[2021-12-05] MEDS: multivitamins, therapeutics tablet PO SCH (08:31)
[2021-12-05] MEDS: benztropine 1mg tablet PO SCH ×2 (08:32→20:29)
[2021-12-05] MEDS: naltrexone 50mg tablet PO SCH (08:32)
[2021-12-05] MEDS: haloperidol 5mg tablet PO SCH ×3 (08:32→16:25)
[2021-12-05] MEDS: megestrol acetate 400mg/10ml UD oral suspension PO SCH (08:32)
[2021-12-05] MEDS: LORazepam 0.5 MG tablet PO SCH ×3 (08:32→20:29)
--- NOTE | 2021-12-05 11:04 | NUR ---
GOOD BEHAVIOR Purchased Jozef moreno from the cafeteria with his debit card as a reward for having a good morning and following the rules on the unit. JAYCEE Aiken
[2021-12-05] MEDS: sertraline 50mg tablet PO SCH (16:25)
[2021-12-05] MEDS: atorvastatin 20mg tablet PO SCH (16:25)
--- NOTE | 2021-12-05 16:39 | NUR ---
Nursing Progress Note: [place] Legal hold: LPS Conserved Client on involuntary status for GD Report received from RN with use of SBAR Why are they here: Pt admitted to [facility] for [facility] health today on LPS conservatorship for Schizophrenia. Pt had escaped from this unit 4-5 days earlier. Pt walked back into the emergency room this morning. Pt has wounds to bilateral thumbs that could be cold weather injury and to L foot. Pt has been off of his meds since leaving. Pt immediately requests to go to lower level of care, return to [facility] or leave today. Pt here for medication stabilization and placement. Assessment What has happened this shift: Patient has been pacing in halls and sitting in community room throughout shift. He constantly approaches nurse station to ask for coffee, update on plan of care and nicotine lozenge. Patient has to constantly be reminded to not drop any food/drinks/medication on floor. He has been spending more time in room today than yesterday. Compliant with medications and agrees to have his coffee fed to him instead of him holding it himself since he has dropped his drinks multiple times even when being reminded not to. S/I, H/I: Denies A/VH: Denies Sleep: Patient sept 7 hours last night per date night sitter report, took 2 naps throughout day shift, both about an hour each ADL's: Independent Group attendance: n/a Were Meds taken: Yes Any med S/E: None observed or reported Mental Status Exam Appearance: Casual in green scrubs. Disheveled hair. Eye contact: Good Behavior: Animated, impulsive, social with staff Speech: Clear with some fragmented speech Mood: Appears bored, euthymic Affect: Blunted Thought process: Circumstantial, linear with some thought blocking Thought Content: Meeting needs. Cognition: A&O x3 to self, time and place Insight: Poor Judgment: Poor Interventions PRN's used: Nicotine lozenge Therapeutic interventions: 1:1 assessment, provided clear and simple instructions, provided direction and encouragement regarding performance of ADLs, monitored behaviors and maintained clear boundaries, provided positive reinforcement for positive behaviors and redirection for negative behaviors, and maintained Q 15min safety checks. Restraints/seclusion/emergency medication: N/A Justification of Continued Inpatient Treatment: Patient continues to require a safe and supportive environment with medication adjustment and monitoring, while awaiting LPS placement.
[2021-12-05 19:38] VITALS: BP 102/63
[2021-12-05] MEDS: mirtazapine 15mg tablet PO SCH (20:29)
[2021-12-05] MEDS: quetiapine 100mg tablet PO SCH (20:29)
--- NOTE | 2021-12-05 21:56 | NUR ---
Nursing Progress Note: Jozef Legal hold: LPS Conserved Client on involuntary status for GD Report received from RN with use of SBAR Why are they here: Pt admitted to [facility] for Behavioral health today on LPS conservatorship for Schizophrenia. Pt had escaped from this unit 4-5 days earlier. Pt walked back into the emergency room this morning. Pt has wounds to bilateral thumbs that could be cold weather injury and to L foot. Pt has been off of his meds since leaving. Pt immediately requests to go to lower level of care, return to [place] or leave today. Pt here for medication stabilization and placement. Assessment What has happened this shift: Pt was asleep in bed at change of shift and was awaken for evening snacks. Pt took HS meds and states he is doing "good". Pt is pleasant, denies having any needs at this time. Had snack and went back to bed. S/I, H/I: Denies A/VH: Denies Sleep:see sleep hours ADL's: Independent Group attendance: n/a Were Meds taken: Yes Any med S/E: None observed or reported Mental Status Exam Appearance: Casual in green scrubs. Disheveled hair. Eye contact: Good Behavior: Animated, impulsive, social with staff Speech: Clear with some fragmented speech Mood: euthymic Affect: Blunted Thought process: Circumstantial, linear with some thought blocking Thought Content: Meeting needs. Cognition: A&O x3 to self, time and place Insight: Poor Judgment: Poor Interventions PRN's used: None Therapeutic interventions: 1:1 assessment, provided clear and simple instructions, provided direction and encouragement regarding performance of ADLs, monitored behaviors and maintained clear boundaries, provided positive reinforcement for positive behaviors and redirection for negative behaviors, and maintained Q 15min safety checks. Restraints/seclusion/emergency medication: N/A Justification of Continued Inpatient Treatment: Patient continues to require a safe and supportive environment with medication adjustment and monitoring, while awaiting LPS placement.
[2021-12-06] MEDS: NICOTINE POLACRILEX 2 MG LOZENGE BC PRN ×2 (06:34→11:50)
[2021-12-06] MEDS: megestrol acetate 400mg/10ml UD oral suspension PO SCH (07:40)
[2021-12-06] MEDS: cholecalciferol (vitamin D3) 1,000 unit (25mcg) tablet PO SCH (07:40)
[2021-12-06] MEDS: naltrexone 50mg tablet PO SCH (07:41)
[2021-12-06] MEDS: multivitamins, therapeutics tablet PO SCH (07:41)
[2021-12-06] MEDS: LORazepam 0.5 MG tablet PO SCH ×3 (07:41→20:17)
[2021-12-06] MEDS: haloperidol 5mg tablet PO SCH ×3 (07:41→16:41)
[2021-12-06] MEDS: benztropine 1mg tablet PO SCH ×2 (07:41→20:17)
[2021-12-06] MEDS: guanFACINE 1 mg tablet PO SCH (07:41)
[2021-12-06 07:47] VITALS: BP 124/78
--- NOTE | 2021-12-06 11:17 | NUR ---
GOOD BEHAVIOR Jozef had a good morning and has been following the rules. Purchased him donuts and a soda at his request for his good behavior. JAYCEE Aiken
[2021-12-06] MEDS: atorvastatin 20mg tablet PO SCH (16:41)
[2021-12-06] MEDS: sertraline 50mg tablet PO SCH (16:41)
--- NOTE | 2021-12-06 17:57 | NUR ---
Nursing Progress Note: Jozef Legal hold: LPS Conserved Client on involuntary status for GD Report received from ELOY Alexis with use of SBAR Why are they here: Pt admitted to [facility] for Behavioral health today on LPS conservatorship for Schizophrenia. Pt had escaped from this unit 4-5 days earlier. Pt walked back into the emergency room this morning. Pt has wounds to bilateral thumbs that could be cold weather injury and to L foot. Pt has been off of his meds since leaving. Pt immediately requests to go to lower level of care, return to [place] or leave today. Pt here for medication stabilization and placement. Assessment What has happened this shift: Patient received sleeping in his room at change of shift. He approached this editorial writer before breakfast asking for a PRN Nicotine lozenge. Patient endorsed that he slept really disturbed last night but was unable to emphasize any further. Patient received PRN Nicotine lozenge and was noted moments later throwing the lozenge at the ceiling then picking it up off of the ground and placing it in his mouth. He joined in the group room with peers for breakfast. He continues to present as impulsive, yet pleasant and cooperative with care. Patient was noted asking this editorial writer not to take his medication this morning. Patient educated on importance and reasoning for medication and was able to take scheduled medication without hesitancy. Patient was noted dropping his iced coffee onto the ground on two different occasions this morning. Staff assisted patient and he cleaned up the spill. He denies SI/HI, AH or VH. Does not appear to be responding to internal stimuli. Patient participated in group therapy today, noted participating appropriately with peers. He was noted taking a nap later in the day. Patient awoke and asked this editorial writer for a snack which he was provided with. He joined for snack and meal times in the group room with peers. S/I, H/I: Denies A/VH: Denies. Does not appear to be responding to internal stimuli. Sleep: Refer to sleep hours. Napped for approximately 2 hours on this shift. ADL's: Independent Group attendance: Yes Were Meds taken: Yes Any med S/E: None observed or reported Mental Status Exam Appearance: Casual in green scrubs. Disheveled hair. Eye contact: Good Behavior: Animated, impulsive, social with staff Speech: Clear with some fragmented speech Mood: Euthymic Affect: Blunted Thought process: Circumstantial, linear with some thought blocking Thought Content: Meeting needs. Cognition: A&O x3 to self, time and place Insight: Poor Judgment: Poor Interventions PRN's used: Nicotine lozenge Therapeutic interventions: 1:1 assessment, provided clear and simple instructions, provided direction and encouragement regarding performance of ADLs, monitored behaviors and maintained clear boundaries, provided positive reinforcement for positive behaviors and redirection for negative behaviors, and maintained Q 15min safety checks. Restraints/seclusion/emergency medication: N/A Justification of Continued Inpatient Treatment: Patient continues to require a safe and supportive environment with medication adjustment and monitoring, while awaiting LPS placement.
[2021-12-06 20:00] VITALS: BP 102/68
[2021-12-06] MEDS: quetiapine 100mg tablet PO SCH (20:17)
[2021-12-06] MEDS: mirtazapine 15mg tablet PO SCH (20:17)
--- NOTE | 2021-12-07 02:24 | NUR ---
Nursing Progress Note: Jozef Legal hold: LPS Conserved Client on involuntary status for GD Report received from Sho LYONS with use of SBAR Why are they here: Pt admitted to [facility] for Behavioral health today on LPS conservatorship for Schizophrenia. Pt had escaped from this unit 4-5 days earlier. Pt walked back into the emergency room this morning. Pt has wounds to bilateral thumbs that could be cold weather injury and to L foot. Pt has been off of his meds since leaving. Pt immediately requests to go to lower level of care, return to [place] or leave today. Pt here for medication stabilization and placement. Assessment What has happened this shift: Patient received lying in bed at change of shift. Pt up at snack time and started to walk towards the exit door but was re-directed easily. Pt took all HS medications and states he is OK. Pt went back to bed after having a sandwich. S/I, H/I: Denies A/VH: Denies. Does not appear to be responding to internal stimuli. Sleep: ADL's: Independent Group attendance: Yes Were Meds taken: Yes Any med S/E: None observed or reported Mental Status Exam Appearance: Casual in green scrubs. Disheveled hair. Eye contact: Good Behavior: Animated, impulsive, social with staff Speech: Clear with some fragmented speech Mood: Euthymic Affect: Blunted Thought process: Circumstantial, linear with some thought blocking Thought Content: Meeting needs. Cognition: A&O x3 to self, time and place Insight: Poor Judgment: Poor Interventions PRN's used: Therapeutic interventions: 1:1 assessment, provided clear and simple instructions, provided direction and encouragement regarding performance of ADLs, monitored behaviors and maintained clear boundaries, provided positive reinforcement for positive behaviors and redirection for negative behaviors, and maintained Q 15min safety checks. Restraints/seclusion/emergency medication: N/A Justification of Continued Inpatient Treatment: Patient continues to require a safe and supportive environment with medication adjustment and monitoring, while awaiting LPS placement
[2021-12-07] MEDS: NICOTINE POLACRILEX 2 MG LOZENGE BC PRN ×2 (06:04→08:34)
[2021-12-07 07:42] VITALS: BP 95/66
[2021-12-07] MEDS: megestrol acetate 400mg/10ml UD oral suspension PO SCH (07:53)
[2021-12-07] MEDS: naltrexone 50mg tablet PO SCH (07:54)
[2021-12-07] MEDS: LORazepam 0.5 MG tablet PO SCH ×3 (07:54→20:01)
[2021-12-07] MEDS: benztropine 1mg tablet PO SCH ×2 (07:54→20:01)
[2021-12-07] MEDS: cholecalciferol (vitamin D3) 1,000 unit (25mcg) tablet PO SCH (07:54)
[2021-12-07] MEDS: multivitamins, therapeutics tablet PO SCH (07:54)
[2021-12-07] MEDS: haloperidol 5mg tablet PO SCH ×3 (07:54→16:01)
[2021-12-07] MEDS: guanFACINE 1 mg tablet PO SCH (08:00)
[2021-12-07] MEDS: mineral oil/pet hy-phy 85gm ointment TP PRN (10:50)
--- NOTE | 2021-12-07 11:38 | NUR ---
GOOD BEHAVIOR Provided Jozef with a chocolate muffin as a reward for good behavior this morning. JAYCEE Aiken
--- NOTE | 2021-12-07 13:06 | NUR ---
F/u 12/07: Pt meal intake continues to fluctuate though remains very poor 0-25% w/ increasing refusals. Noted pt participating in snacks and receiving "food rewards" for good behavior such as chocolate muffin this AM per EMR; continues to receive grill items w/ lunches per request. Pt wt remains stable though current wt 135.4kg error supposed to be in 135.4 pounds; RD d/w RN for updated wt. RD d/w RN regarding food options pt can have any food requested at meals as long as we have it in stock and within reason given poor PO trends past 4.5 months. LBM 5/ per EMR. Will continue to monitor. Recommendations: 1. Continue regular diet 2. Milkshake TIDWM; grill items with lunches 3. Encourage PO intake of meals/snacks; honor food preferences as able 4. Continue routine appetite stimulant and MVI 5. Initiate nutrition support if physician agreeable and within POC given continued poor PO intake of meals since admit ~4.5 months 6. Routine bowel care 7. Weekly scaled weights Addendum: 12/07/21 at [address] Amended: Links added.
[2021-12-07] MEDS: sertraline 50mg tablet PO SCH (15:45)
[2021-12-07] MEDS: atorvastatin 20mg tablet PO SCH (15:46)
[2021-12-07] MEDS: acetaminophen 325mg tablet PO PRN (16:12)
--- NOTE | 2021-12-07 16:44 | NUR ---
Nursing Progress Note: Idalou Legal hold: [facility] Client on involuntary status for GD Report received from ELOY Alexis with use of SBAR Why they are here: Pt admitted to [facility] for Behavioral health today on LPS conservatorship for Schizophrenia. Pt had escaped from this unit 4-5 days earlier. Pt walked back into the emergency room this morning. Pt has wounds to bilateral thumbs that could be cold weather injury and to L foot. Pt has been off of his meds since leaving. Pt immediately requests to go to lower level of care, return to [facility] or leave today. Pt here for medication stabilization and placement. Assessment What has happened this shift: Received pt. awake and in bed. Pt. accepted his medications at breakfast and 1:1 assessment completed later at the bedside. Pt. refused to answer questions re SI, HI. Pt. requested coffee and was aided by staff d/t previous cup dropping episodes. Pt. ate his meals in the dining room and does sit with others, but does not engage socially. He approached jingle writer requesting can II lozenger PRN nicotine lozenge provided. Pt. observed skipping and walking at fast paces for short bursts. Fragmented speech continues, no episodes of door checking or agitation found this shift. He did not attend group. Pt. took a one hour nap this morning and participated in all snacks. S/I, H/I: Denies A/VH: Denies; no signs of internal preoccupation Sleep: 8.75 hrs per NOC shift, one hour nap ADL's: Requires direction and encouragement Group attendance: No Were meds taken: Yes Any med S/E: None Mental Status Exam Appearance: Young male, pale, disheveled, and wearing unit scrubs Eye contact: Fair Behavior: Withdrawn Speech: Fragmented Mood: Upbeat Affect: Blunted Thought process: Disorganized Thought Content: Poverty of thought. Cognition: A&O x3 Insight: Poor Judgment: Poor Interventions PRN's used: Nicotine lozenges, Tylenol Therapeutic interventions: Maintained a safe and supportive environment, ensured contract for safety, provided clear and simple instructions, provided direction and encouragement regarding performance of ADLs, monitored behaviors and maintained clear boundaries, provided positive reinforcement, and maintained Q 15min safety checks. Restraints/seclusion/emergency medication: N/A Justification of Continued Inpatient Treatment: Per Dr. Newell, pt. continues to require a safe and supportive environment while awaiting placement at an IMD
[2021-12-07 19:24] VITALS: BP 108/70
[2021-12-07] MEDS: quetiapine 100mg tablet PO SCH (20:01)
[2021-12-07] MEDS: mirtazapine 15mg tablet PO SCH (20:01)
--- NOTE | 2021-12-07 22:16 | NUR ---
Nursing Progress Note: Jozef Legal hold: [facility] Client on involuntary status for GD Report received from ELOY Berkowitz with use of SBAR Why they are here: Pt admitted to [facility] for Behavioral health today on LPS conservatorship for Schizophrenia. Pt had escaped from this unit 4-5 days earlier. Pt walked back into the emergency room this morning. Pt has wounds to bilateral thumbs that could be cold weather injury and to L foot. Pt has been off of his meds since leaving. Pt immediately requests to go to lower level of care, return to [place] or leave today. Pt here for medication stabilization and placement. Assessment What has happened this shift: Pt was napping at change of shift. Pt woke up for snacks and had some juice. Pt took HS meds and said he wanted to go back to bed. Pt is pleasant, cooperative. S/I, H/I: Denies A/VH: Denies; no signs of internal preoccupation Sleep: see sleep hours ADL's: Requires direction and encouragement Group attendance: No Were meds taken: Yes Any med S/E: None Mental Status Exam Appearance: Young male, pale, disheveled, and wearing unit scrubs Eye contact: Fair Behavior: sleeping, isolating to his room Speech: Fragmented Mood: euthymic Affect: Blunted Thought process: Disorganized Thought Content: Poverty of thought. Cognition: A&O x3 Insight: Poor Judgment: Poor Interventions PRN's used:none Therapeutic interventions: Maintained a safe and supportive environment, ensured contract for safety, provided clear and simple instructions, provided direction and encouragement regarding performance of ADLs, monitored behaviors and maintained clear boundaries, provided positive reinforcement, and maintained Q 15min safety checks. Restraints/seclusion/emergency medication: N/A Justification of Continued Inpatient Treatment: Per Dr. Newell, pt. continues to require a safe and supportive environment while awaiting placement at an IMD
[2021-12-08] MEDS: naltrexone 50mg tablet PO SCH (07:03)
[2021-12-08] MEDS: LORazepam 0.5 MG tablet PO SCH ×3 (07:03→20:22)
[2021-12-08] MEDS: guanFACINE 1 mg tablet PO SCH (07:03)
[2021-12-08] MEDS: multivitamins, therapeutics tablet PO SCH (07:03)
[2021-12-08] MEDS: megestrol acetate 400mg/10ml UD oral suspension PO SCH (07:03)
[2021-12-08] MEDS: cholecalciferol (vitamin D3) 1,000 unit (25mcg) tablet PO SCH (07:03)
[2021-12-08] MEDS: benztropine 1mg tablet PO SCH ×2 (07:03→20:22)
[2021-12-08] MEDS: haloperidol 5mg tablet PO SCH ×3 (07:03→16:56)
[2021-12-08] MEDS: NICOTINE POLACRILEX 2 MG LOZENGE BC PRN ×3 (07:43→16:08)
[2021-12-08 08:00] VITALS: BP 102/76
--- NOTE | 2021-12-08 15:59 | NUR ---
Nursing Progress Note: Oto Legal hold: [facility] Client on involuntary status for GD Report received from ELOY Alexis with use of SBAR Why they are here: Pt admitted to [facility] for Behavioral health today on LPS conservatorship for Schizophrenia. Pt had escaped from this unit 4-5 days earlier. Pt walked back into the emergency room this morning. Pt has wounds to bilateral thumbs that could be cold weather injury and to L foot. Pt has been off of his meds since leaving. Pt immediately requests to go to lower level of care, return to [place] or leave today. Pt here for medication stabilization and placement. Assessment What has happened this shift: Patient is resting quietly in bed at the start of the shift. Eats meals in the community room and interacts appropriately with peers. Cooperative with medications and 1:1 assessment. Repetitive ritualistic behavior is noted; start stop walking, stepping in and out of a doorway several times. Speech is generally clear but is fragmented at times. At snack time the patient becomes irritated when he drops his coffee and is not given another. Able to be redirected. Takes a nap in the afternoon. S/I, H/I: Denies A/VH: Denies Sleep: 1 hour in the morning. Takes a nap in the afternoon. ADL's: Independent Group attendance: No Were meds taken: Yes Any med S/E: None observed or reported. Mental Status Exam Appearance: Young male, pale, disheveled, and wearing unit scrubs Eye contact: Fair Behavior: Cooperative, repetitive Speech: Clear, fragmented at times Mood: Euthymic Affect: Blunted with brightening Thought process: Disorganized, possible thought blocking Thought Content: Asks for snacks frequently Cognition: A&O x3 Insight: Poor Judgment: Poor Interventions PRN's used: Nicotine lozenges Therapeutic interventions: Maintained a safe and supportive environment, ensured contract for safety, provided clear and simple instructions, provided direction and encouragement regarding performance of ADLs, monitored behaviors and maintained clear boundaries, provided positive reinforcement, and maintained Q 15min safety checks. Restraints/seclusion/emergency medication: N/A Justification of Continued Inpatient Treatment: Per Dr. Newell, pt. continues to require a safe and supportive environment while awaiting placement at an D
[2021-12-08] MEDS: atorvastatin 20mg tablet PO SCH (16:56)
[2021-12-08] MEDS: sertraline 50mg tablet PO SCH (16:56)
[2021-12-08] MEDS: mirtazapine 15mg tablet PO SCH (20:22)
[2021-12-08] MEDS: quetiapine 100mg tablet PO SCH (20:22)
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
[2021-12-09] MEDS: NICOTINE POLACRILEX 2 MG LOZENGE BC PRN ×4 (05:55→18:49)
[2021-12-09] MEDS: cholecalciferol (vitamin D3) 1,000 unit (25mcg) tablet PO SCH (07:53)
[2021-12-09] MEDS: benztropine 1mg tablet PO SCH ×2 (07:54→20:12)
[2021-12-09] MEDS: haloperidol 5mg tablet PO SCH ×3 (07:54→16:05)
[2021-12-09] MEDS: multivitamins, therapeutics tablet PO SCH (07:54)
[2021-12-09] MEDS: naltrexone 50mg tablet PO SCH (07:54)
[2021-12-09] MEDS: LORazepam 0.5 MG tablet PO SCH ×3 (07:54→20:12)
[2021-12-09] MEDS: guanFACINE 1 mg tablet PO SCH (07:55)
[2021-12-09] MEDS: megestrol acetate 400mg/10ml UD oral suspension PO SCH (07:56)
[2021-12-09 08:00] VITALS: BP 103/73
[2021-12-09] MEDS: acetaminophen 325mg tablet PO PRN ×2 (09:38→18:03)
[2021-12-09] MEDS: sertraline 50mg tablet PO SCH (16:04)
[2021-12-09] MEDS: atorvastatin 20mg tablet PO SCH (16:05)
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
[2021-12-09] MEDS: mag hydrox/Alum hydrox/simeth 30ml oral suspension PO PRN (17:25)
[2021-12-09 19:33] VITALS: BP 124/86
[2021-12-09] MEDS: mirtazapine 15mg tablet PO SCH (20:12)
[2021-12-09] MEDS: quetiapine 100mg tablet PO SCH (20:12)
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
[2021-12-10] MEDS: NICOTINE POLACRILEX 2 MG LOZENGE BC PRN (07:09)
[2021-12-10] MEDS: megestrol acetate 400mg/10ml UD oral suspension PO SCH (08:01)
[2021-12-10] MEDS: multivitamins, therapeutics tablet PO SCH (08:01)
[2021-12-10] MEDS: naltrexone 50mg tablet PO SCH (08:01)
[2021-12-10] MEDS: benztropine 1mg tablet PO SCH (08:01)
[2021-12-10] MEDS: haloperidol 5mg tablet PO SCH ×3 (08:01→17:00)
[2021-12-10] MEDS: LORazepam 0.5 MG tablet PO SCH ×2 (08:01→13:00)
[2021-12-10] MEDS: cholecalciferol (vitamin D3) 1,000 unit (25mcg) tablet PO SCH (08:01)
[2021-12-10 08:32] VITALS: BP 122/73
[2021-12-10 08:33] VITALS: BP 109/78
--- NOTE | 2021-12-10 09:45 | NUR ---
Pt. unable to be located during Q15min checks and charge nurse was notified. Pt. eloped from the unit at 0935. Hospital security notified immediately, and pt. was found to have exited the hospital property. Notifications were then made to FLOWER, Elyssa PARISH, [facility] logistics supervisor, nursing logistics supervisor, Public Guardian detention deputy, and Laith. Addendum: 12/10/21 at 1725 by Tyshawn Tillman RN Laith was the PG detention deputy. Pt will officially be dc'd after 8 hours gone. (0022)
[2021-12-10] MEDS: atorvastatin 20mg tablet PO SCH (16:00)
[2021-12-10] MEDS: sertraline 50mg tablet PO SCH (16:00)
== END 2021-12-10 17:36 | disposition left against medical advice (07) | DRG 750 ==
LOC: ER 23:06 → ED HOLD 07-22 10:30 → ADULT MH 07-22 11:49
PROVIDERS: ADMIT Psychiatry & Neurology Psychiatry; ATTEND Psychiatry & Neurology Psychiatry
DX: F20.0 Paranoid schizophrenia (principal); Z59.00 Homelessness unspecified; D64.9 Anemia, unspecified; Z20.822 Contact with and (suspected) exposure to COVID-19; E78.5 Hyperlipidemia, unspecified; F15.10 Other stimulant abuse, uncomplicated; F41.9 Anxiety disorder, unspecified; L03.019 Cellulitis of unspecified finger; K59.00 Constipation, unspecified; Z53.29 Procedure and treatment not carried out because of patient's decision for other reasons; G47.00 Insomnia, unspecified; F17.210 Nicotine dependence, cigarettes, uncomplicated; K21.9 Gastro-esophageal reflux disease without esophagitis; F42.2 Mixed obsessional thoughts and acts; R63.0 Anorexia; G89.29 Other chronic pain; R50.9 Fever, unspecified; F42.9 Obsessive-compulsive disorder, unspecified; K08.89 Other specified disorders of teeth and supporting structures; Z81.8 Family history of other mental and behavioral disorders; Z56.0 Unemployment, unspecified; Z88.8 Allergy status to other drugs, medicaments and biological substances; Z79.899 Other long term (current) drug therapy; H10.89 Other conjunctivitis; G24.01 Drug induced subacute dyskinesia; Z68.22 Body mass index [BMI] 22.0-22.9, adult
CPT/HCPCS: 36415; 71045; 80053; 80061; 80305; 80320; 82728; 83036; 83605; 84145; 85025; 87040; 87081; 87529; 87635; 87880; 99285; C9290; C9803; J0515; J1200; J1630; J2060; J3490; Q0163; Q0177; S0020

== ENCOUNTER → 2021-12-17 | Emergency (ER) | payer MEDICAID ==
[~2021-12-17] VITALS: Ht 165.1 cm; Wt 62.1 kg
[~2021-12-17] MED LIST changes: +ACET-1008 PO; +BENZ1TAB7 PO; +HALO5TAB PO; +LORA-268; +LORazepam 1 MG tablet PO ONE; +LORazepam 2 mg/ml vial IM ONE; +LORazepam 2 mg/ml vial ONE; +MAG355OR18 PO; +NALT50TA PO; +OLAN5TAB5 PO; +OLANZapine **IM** 10 mg inj. IM ONE; +QUET300T2 PO; +QUET50TA PO; +SERT100T PO; +TEMA30CA5 PO; +acetaminophen 325mg tablet PO ONE; +dextroamphetamine/amphetamine 5mg tablet PO ONE; +diphenhydrAMINE 50 mg/ml inj IM ONE; +diphenhydrAMINE 50 mg/ml inj ONE; +haloperidol lactate 5mg/ml inj IM ONE; +haloperidol lactate 5mg/ml inj ONE
--- NOTE | 2021-12-17 10:58 | NUR ---
PATIENT IN BED QUIETLY RESTING. PATIENT GIVEN JOHN CRACKERS AND JEDWAYNEO. WILL CONTINUE TO MONITER.
--- NOTE | 2021-12-17 11:20 | NUR ---
PATIENT THREW FOOD AT GROUND AND STATED "SORRY I WAS MAD".
[2021-12-17 11:57] LABS: BASOPHILS % (AUTO) 0.4 % (0-1); EOSINOPHILS % (AUTO) 0.4 % (0-6); HEMATOCRIT 39.8 % (42.0-52.0); HEMOGLOBIN 13.4 g/dl (14.0-17.9); LYMPHOCYTES % (AUTO) 29.2 % (21-51); MEAN CORPUSCULAR HEMOGLOBIN 29.4 PG (27.0-31.0); MEAN CORPUSCULAR HGB CONC 33.7 g/dL (33.0-36.5); MEAN CORPUSCULAR VOLUME 87.4 FL (78-98); MEAN PLATELET VOLUME 8.4 FL (7.4-10.4); MONOCYTES # (AUTO) 0.7 X10'3 (0-0.9); MONOCYTES % (AUTO) 10.7 % (2-12); NEUTROPHILS % (AUTO) 59.3 % (42-75); PLATELET COUNT 305 X10'3 (140-440); RED BLOOD COUNT 4.55 X10'6 (4.70-6.10); RED CELL DISTRIBUTION WIDTH 12.7 % (11.5-14.5); WHITE BLOOD COUNT 6.8 X10'3 (4.5-11.0)
[2021-12-17 12:07] LABS: ALANINE AMINOTRANSFERASE 19 U/L (12-78); ALBUMIN 4.1 G/DL (3.4-5.0); ALKALINE PHOSPHATASE 71 IU/L (46-116); ANION GAP 10 (8-16); ASPARTATE AMINO TRANSFERASE 20 U/L (10-37); BILIRUBIN,TOTAL 0.6 MG/DL (0.1-1.0); BLOOD UREA NITROGEN 17 MG/DL (7-18); BUN/CREATININE RATIO 21.8 (5.4-32.0); CHLORIDE 104 MMOL/L (99-107); CREATININE 0.78 MG/DL (0.60-1.10); GLUCOSE 125 MG/DL (70-104); POTASSIUM 3.6 MMOL/L (3.5-5.1); SODIUM 142 MMOL/L (135-145); TOTAL CARBON DIOXIDE 27.9 MMOL/L (24-32); TOTAL PROTEIN 8.4 G/DL (6.4-8.2); eGFR > 90 ML/MIN
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
--- NOTE | 2021-12-17 12:31 | NUR ---
PATIENT APPEARS TO BE SLEEPING ON BACK, PATIENT HAS NO NEEDS AT THIS TIME. RESPIRATIONS EVEN. WILL CONTINUE TO MONITER PATIENT.
--- NOTE | 2021-12-17 13:30 | NUR ---
PATIENT APPEARS TO BE SLEEPING ON BACK. PATIENTS RESPIRATIONS EQUAL. PATIENT HAS NO NEEDS AT THIS TIME. WILL CONTINUE TO MONITER PATIENT.
--- NOTE | 2021-12-17 15:12 | NUR ---
PATIENT APPEARS TO BE SLEEPING ON BACK. PATIENT HAS NO NEEDS AT THIS TIME. WILL CONTINUE TO MONITER.
[2021-12-17 16:13] LABS: CLARITY,URINE CLEAR (Clear); COLOR,URINE YELLOW (Yellow); GLUCOSE, URINE NEGATIVE (Neg); KETONES,URINE 15 mg/dl (Neg); LEUKOCYTE ESTERASE ,URINE NEGATIVE (Neg); NITRITES, URINE NEGATIVE (Neg); OCCULT BLOOD,URINE NEGATIVE (Neg); PROTEIN,URINE TRACE mg/dl (Neg)
--- NOTE | 2021-12-17 16:13 | NUR ---
PATIENT ASSISTED TO THE RESTROOM. PATIENT GIVEN WARM BLANKETS. PATIENT HAS NO FURTHER NEEDS AT THIS TIME. WILL CONTINUE TO MONITER.
[2021-12-17 16:17] LABS: UA COLLECTION TYPE NON-SPECIFIED
[2021-12-17 16:18] LABS: BACTERIA,URINE NONE SEEN /HPF (Neg); MUCUS STRANDS FEW /LPF (Neg); RBC,URINE 0-2 /HPF (0-2); SQUAMOUS EPITHELIAL CELL,UR NONE SEEN /LPF (FEW); WBC,URINE 0-4 /HPF (0-4)
[2021-12-17 16:24] LABS: URINE AMPHETAMINE SCREEN NEGATIVE (Neg); URINE BARBITUATE SCREEN NEGATIVE (Neg); URINE BENZODIAZEPINES SCREEN NEGATIVE (Neg); URINE CANNABINOID SCREEN NEGATIVE (Neg); URINE COCAINE SCREEN NEGATIVE (Neg); URINE METHADONE SCREEN NEGATIVE (Neg); URINE OPIATE SCREEN NEGATIVE (Neg); URINE PHENCYCLIDINE SCREEN NEGATIVE (Neg)
--- NOTE | 2021-12-17 17:22 | NUR ---
PATIENT APPEARS TO BE SLEEPING ON BACK. RESPIRATIONS EVEN. PATIENT HAS NO NEEDS AT THIS TIME. WILL CONTINUE TO MONITER.
--- NOTE | 2021-12-17 17:58 | NUR ---
PATIENT IN ROOM EATING DINNER
--- NOTE | 2021-12-17 19:02 | NUR ---
Packet sent to [facility]
--- NOTE | 2021-12-17 19:35 | NUR ---
The patient is resting on his bed. He is unable to verbalize where he has been or what his plan for food chcf if he was not in the ER. He is giving allieses when asked what his name is. He is being observed closely 2nd to elevated elopement risk. Discussed meds given routinely on [facility] with Carmen PARISH and orders received.
[2021-12-17] MEDS: quetiapine fumarate ER 300mg tablet PO SCH (20:39)
[2021-12-17] MEDS: benztropine 1mg tablet PO SCH (20:39)
[2021-12-17] MEDS: LORazepam 0.5 MG tablet PO SCH (20:39)
[2021-12-17] MEDS: haloperidol 5mg tablet PO SCH (20:40)
--- NOTE | 2021-12-17 20:49 | NUR ---
The patient is resting on his bed and took his medications crushed.
--- NOTE | 2021-12-17 21:09 | NUR ---
The patient appears to be sleeping
--- NOTE | 2021-12-17 23:38 | NUR ---
The patient appears to be sleeping
--- NOTE | 2021-12-17 23:54 | NUR ---
Nurse to Nurse with Sola at [facility]
--- NOTE | 2021-12-18 01:19 | NUR ---
The patient appears to be sleeping
--- NOTE | 2021-12-18 03:51 | NUR ---
The patient appears to be sleeping
--- NOTE | 2021-12-18 05:57 | NUR ---
The patient appears to have slept the entire evening
--- NOTE | 2021-12-18 07:19 | NUR ---
Pt woke for a second repositioning himself then went back to sleep. Pt is resting on his back with his hand near his face. RR even and unlabored.
--- NOTE | 2021-12-18 07:35 | NUR ---
Pt awake. Offered a snack. He declined. He is now picking at his fingers. Appears comfortable resting on his back.
[2021-12-18] MEDS: LORazepam 0.5 MG tablet PO SCH ×3 (08:39→20:16)
[2021-12-18] MEDS: benztropine 1mg tablet PO SCH ×2 (08:39→20:16)
[2021-12-18] MEDS: haloperidol 5mg tablet PO SCH ×3 (08:39→20:16)
[2021-12-18] MEDS: naltrexone 50mg tablet PO SCH (08:40)
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
--- NOTE | 2021-12-18 11:26 | NUR ---
Recieved call from Donald, Public Guardian, regarding this nurses request for a sitter. Per Donald, "I will see what I can do."
--- NOTE | 2021-12-18 11:29 | NUR ---
Pt is on his right side resting. He appears to be asleep. RR even and unlabored.
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
--- NOTE | 2021-12-18 14:43 | NUR ---
Pt is in one point restraint. He is watching TV and does not want to be bothered.
--- NOTE | 2021-12-18 16:53 | NUR ---
Pt is restingi on his bed. He remains in one point restraints. Pt is resting right now with the sheet over his face.
--- NOTE | 2021-12-18 17:20 | NUR ---
Pt is resting on his bed sitting up with his eyes closed. Pt remains confused, delusional and unable to contract safety.
[2021-12-18] MEDS: sertraline 50mg tablet PO SCH (18:12)
--- NOTE | 2021-12-18 19:00 | NUR ---
The patient was moved to bed 27 right next to the bathroom where access to the exit doors was less obtainable. He has poor self controll. He threw his dinner tray on the floor and later threw his water pitcher on the floor. He is unable to verbalize any kind of plan for food, halfway or clothing if he was discharged from the inpatient unit.
--- NOTE | 2021-12-18 20:07 | NUR ---
Spoke with professor criminal justice and nursing repair supervisor regarding the importance of keeping the patient on a line of sight 2nd to his continual attempts of AWOL and his inability to provide for his safety and self care outside of the hospital enviroment.
[2021-12-18] MEDS: quetiapine fumarate ER 300mg tablet PO SCH (20:16)
--- NOTE | 2021-12-18 20:30 | NUR ---
The patient took his medications crushed and in yogurt. He then threw the remaining yogurt on the wall and floor.
--- NOTE | 2021-12-18 20:57 | NUR ---
The patient attempted to AWOL off the unit and sitter alerted staff and the patient was escorted back to his bed. Security staff at the bedside.
--- NOTE | 2021-12-18 21:23 | NUR ---
patient standing up and trying to leave past his assigned staff member. He would not accept redirection until a large male staff directed him back to his bed.
--- NOTE | 2021-12-18 22:05 | NUR ---
The patient is resting on his bed but awake
--- NOTE | 2021-12-18 23:49 | NUR ---
The patient is laying on his bed but awake
--- NOTE | 2021-12-19 01:55 | NUR ---
The patient appears to be sleeping
--- NOTE | 2021-12-19 03:22 | NUR ---
The patient appears to be sleeping
--- NOTE | 2021-12-19 04:49 | NUR ---
The patient appears to be sleeping and remains on the one to one staffing
[2021-12-19] MEDS: quetiapine 100mg tablet PO STA ×2 (06:22→06:46)
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
--- NOTE | 2021-12-19 06:56 | NUR ---
Discussed patient behaviors with [facility] admin staff and requested a medication evaluation
[2021-12-19] MEDS: LORazepam 0.5 MG tablet PO SCH ×3 (07:38→20:04)
[2021-12-19] MEDS: naltrexone 50mg tablet PO SCH (07:38)
[2021-12-19] MEDS: haloperidol 5mg tablet PO SCH ×3 (07:38→20:04)
[2021-12-19] MEDS: benztropine 1mg tablet PO SCH ×2 (07:38→20:04)
--- NOTE | 2021-12-19 07:39 | NUR ---
0800 medications held as discussed with Dr. Martines as IM medications were given
--- NOTE | 2021-12-19 08:12 | NUR ---
The patient appears to be sleeping
--- NOTE | 2021-12-19 08:37 | NUR ---
Patient's public guardian called and was given update on the patient's behaviors. She requested notes be sent via fax which was done from admit to this morning.
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
--- NOTE | 2021-12-19 09:59 | NUR ---
The patient appears to be sleeping
--- NOTE | 2021-12-19 12:10 | NUR ---
The patient's public guardian's office was at the bedside and spoke with patient briefly.
--- NOTE | 2021-12-19 12:22 | NUR ---
The patient is awake and eating his lunch.
--- NOTE | 2021-12-19 14:39 | NUR ---
The patient is very restless and unable to follow directions
--- NOTE | 2021-12-19 16:45 | NUR ---
THe patient remains impulsive. He at times strikes out at staff. He is restless. He remains on one to one with staff.
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
[2021-12-19] MEDS: sertraline 50mg tablet PO SCH (17:48)
--- NOTE | 2021-12-19 18:25 | NUR ---
Pt sitting in bed eating dinner. Pt states he is glad to see me here and calls me "mom". Pt states he left because he needed a "change of scenery" a "do over". Pt states he is going to behave tonight and states he isnt going to leave.
--- NOTE | 2021-12-19 18:43 | NUR ---
pt was given 1/2 cup of water because he said he was thirsty, pt then spilled the water on the floor. Requested juice boxes for pt.
--- NOTE | 2021-12-19 19:35 | NUR ---
PT ASKED FOR YOGURT CUP THEN PROCEEDED TO THROW IT ON THE FLOOR. PT STATE HE CAN FEEL HIS MEDICATION "CHANGING HIM" AND HE DOESNT LIKE IT. "ITS REALLY BAD, I DONT LIKE THIS MEDICINE."
[2021-12-19] MEDS: quetiapine fumarate ER 300mg tablet PO SCH (20:04)
--- NOTE | 2021-12-19 20:04 | NUR ---
PT USED THE RESTROOM AND STATES "MY HEART IS MAKING MY PENIS NOT WORK, BUT MY PEE IS VERY CLEAR." PT COMPLAINS OF FEELING THIRSTY AND WAS GIVEN A JUICE BOX. PT IS SITTING IN BED.
--- NOTE | 2021-12-19 20:12 | NUR ---
PT ASKED FOR A SNACK, WAS GIVEN PACKAGED COOKIES AND HE THREW THE COOKIES ACROSS THE ROOM.
--- NOTE | 2021-12-19 23:58 | NUR ---
Pt woke up and climbed out of bed, is making non sensical statements and saying its not fair and he wants his adidas. Pt asked for a snack but wants orange juice first. Pt was given orange juice, he drank the juice then threw the box on the floor and got back in bed.
--- NOTE | 2021-12-20 02:03 | NUR ---
Pt is laying on his back appears to be asleep rr even and unlabored
--- NOTE | 2021-12-20 05:57 | NUR ---
Pt awake and asking to brush his teeth which he did. Pt is dancing around next to his bed and states he doesnt like any meds but zyprexa and cogentin, pt states "Lets talk about a medication adjustment."
--- NOTE | 2021-12-20 06:35 | NUR ---
Patient laying in bed awake. No distress observed. Continue to monitor.
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
--- NOTE | 2021-12-20 08:05 | NUR ---
Patient's breakfast is here and patient's restraints were removed. Patient sitting and picking at tray. Continue to monitor.
--- NOTE | 2021-12-20 08:18 | NUR ---
Patient eating breakfast. No distress observed. Continue to monitor.
[2021-12-20] MEDS: LORazepam 0.5 MG tablet PO SCH ×3 (09:00→20:42)
[2021-12-20] MEDS: haloperidol 5mg tablet PO SCH ×3 (09:00→20:43)
[2021-12-20] MEDS: benztropine 1mg tablet PO SCH ×2 (09:01→20:42)
--- NOTE | 2021-12-20 09:55 | NUR ---
Patient does require a lot of redirection, but does comply. Continue to monitor.
[2021-12-20] MEDS: naltrexone 50mg tablet PO SCH (10:10)
--- NOTE | 2021-12-20 12:10 | NUR ---
Patient picking at lunch. No distress observed. Continue to monitor.
--- NOTE | 2021-12-20 13:10 | NUR ---
Patient is sleeping. Only slept 4 hours yesterday. None in the night. RN will let patient sleep and hold medication until patient awakens. Continue to monitor.
--- NOTE | 2021-12-20 15:05 | NUR ---
Patient is awake and in no distress. Continue to monitor.
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
--- NOTE | 2021-12-20 18:14 | NUR ---
Patient standing on the bed. And is eventually redirectable. Continue to monitor.
--- NOTE | 2021-12-20 18:29 | NUR ---
PT MEAL TRAY WAS PLACED AT BED SIDE. PT TOOK ICE OUT OF CUP AND THREW IT AT MYSELF 1:1 SITTER AT THAT TIME. PT THEN THREW CUP ON GROUND. MEAL TRAY AND CUPS TAKEN AND PUT AWAY.
--- NOTE | 2021-12-20 18:45 | NUR ---
Patient lying on his bed awake. No distress noted.
[2021-12-20] MEDS: sertraline 50mg tablet PO SCH (20:42)
[2021-12-20] MEDS: quetiapine fumarate ER 300mg tablet PO SCH (20:42)
--- NOTE | 2021-12-20 22:40 | NUR ---
Patient is asleep on his left side. Breathing unlabored. No s/sx of distress.
--- NOTE | 2021-12-21 00:01 | NUR ---
Patient sleeping in supine position. No s/sx of distress.
--- NOTE | 2021-12-21 01:54 | NUR ---
Patient sleeping on his right side. breathing unlabored. No signs of distress.
--- NOTE | 2021-12-21 04:10 | NUR ---
Patient awake and asks for a juice. It's provided and patient promptly drops it on the floor.
--- NOTE | 2021-12-21 05:41 | NUR ---
Patient awake for vitals. Denies needs.
--- NOTE | 2021-12-21 06:30 | NUR ---
Patient is up and asking for snacks and things. No distress observed. Continue to monitor.
--- NOTE | 2021-12-21 07:50 | NUR ---
Patient sleeping supine. No distress observed. Continue to monitor.
--- NOTE | 2021-12-21 08:32 | NUR ---
Patient sitting up and bed and eating breakfast. No distress observed. Continue to monitor.
[2021-12-21] MEDS: LORazepam 0.5 MG tablet PO SCH ×3 (08:47→20:03)
[2021-12-21] MEDS: naltrexone 50mg tablet PO SCH (08:47)
[2021-12-21] MEDS: haloperidol 5mg tablet PO SCH ×3 (08:47→20:03)
[2021-12-21] MEDS: benztropine 1mg tablet PO SCH ×2 (08:47→20:03)
--- NOTE | 2021-12-21 10:20 | NUR ---
Patient is sleeping. No distress observed. Continue to monitor.
--- NOTE | 2021-12-21 10:55 | NUR ---
Patient's Public guardian visiting with patient. No distress observed. Continue to monitor.
--- NOTE | 2021-12-21 12:34 | NUR ---
Patient sleeping supine. No distress observed. Continue to monitor.
--- NOTE | 2021-12-21 14:15 | NUR ---
Patient sleeping supine. No distress observed. Continue to monitor.
--- NOTE | 2021-12-21 17:50 | NUR ---
Patient attempted to walk out for the first time today. Patient was redirectable. No distress observed. Continue to monitor.
[2021-12-21] MEDS: sertraline 50mg tablet PO SCH (18:04)
--- NOTE | 2021-12-21 19:00 | NUR ---
Pt lying in quietly in bed. Eyes intermittently closed. No acting out.
[2021-12-21] MEDS: quetiapine fumarate ER 300mg tablet PO SCH (20:03)
--- NOTE | 2021-12-21 21:00 | NUR ---
Pt awoke for snack and took his medications. Pt monitored for cheeking for 10 minutes post taking medications. Pt currently back sleeping without complaints.
--- NOTE | 2021-12-21 22:53 | NUR ---
The patient currently appears to be sleeping.
--- NOTE | 2021-12-22 01:23 | NUR ---
The patient appears to be sleeping
--- NOTE | 2021-12-22 04:08 | NUR ---
The patient appears to be sleeping
--- NOTE | 2021-12-22 05:18 | NUR ---
The patient appears to be sleeping
--- NOTE | 2021-12-22 06:40 | NUR ---
Patient got up and threw is left over sandwich pieces in the trash. Patient made eye contact with RN and nodded. Patient went back to bed. Continue to monitor.
--- NOTE | 2021-12-22 08:20 | NUR ---
Patient ate a few bites of his tray and then flung the tray on the floor. Continue to monitor.
--- NOTE | 2021-12-22 08:50 | NUR ---
A disability representative from the Public Guardian visiting patient. Patient was talkative. RN also reported events of the last 24 hours. Patient has been mostly good. Patient needs a lot of redirection. Patient did try to walk out several times yesterday and only got to the curtain by the ED Directors office once but was blocked by staff and was redirectable back to his bed. Patient was pleasant with Public Guardian staff.
[2021-12-22] MEDS: naltrexone 50mg tablet PO SCH (08:51)
[2021-12-22] MEDS: benztropine 1mg tablet PO SCH ×2 (08:51→20:13)
[2021-12-22] MEDS: LORazepam 0.5 MG tablet PO SCH ×3 (08:51→20:13)
[2021-12-22] MEDS: haloperidol 5mg tablet PO SCH ×3 (08:51→20:13)
--- NOTE | 2021-12-22 10:17 | NUR ---
Patient was coloring but now standing by his bed. No distress observed. Continue to monitor.
--- NOTE | 2021-12-22 19:32 | NUR ---
Per [facility] the public guardian's office is stating that can not provide one to one staffing for the client. Furthermore they stated "if he runs he runs" Jb office stated that they are trying to place him at [facility]. Spoke with the battery charger and they do not have the staffing to continually one to one the patient. Spoke with nursing supervisor cytology and made her aware of the staffing limitations and public guardian's response for a request for staffing their patient. Spoke with security staff and they are aware.
[2021-12-22] MEDS: quetiapine fumarate ER 300mg tablet PO SCH (20:13)
[2021-12-22] MEDS: sertraline 50mg tablet PO SCH (20:14)
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
--- NOTE | 2021-12-22 20:48 | NUR ---
[facility] who they spoke with was
--- NOTE | 2021-12-22 22:57 | NUR ---
THe patient appears to be sleeping
--- NOTE | 2021-12-22 23:41 | NUR ---
The patient appears to be sleeping
--- NOTE | 2021-12-23 00:52 | NUR ---
The patient appears to be sleeping
--- NOTE | 2021-12-23 02:10 | NUR ---
The patient awake briefly to use the bathroom and is not back in bed
--- NOTE | 2021-12-23 03:29 | NUR ---
THe patient appears to be sleeping
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
--- NOTE | 2021-12-23 05:02 | NUR ---
The patient appears to be back asleep
--- NOTE | 2021-12-23 06:42 | NUR ---
Received pt. sleeping in bed at the beginning of the shift, rise and fall of chest noted.
--- NOTE | 2021-12-23 07:37 | NUR ---
[facility] Public Guardian called and they will be sending someone to check on pt. today. They are aware that pt. is currently not on a 1:1 in the ER r/t staffing issues. Addendum: 12/23/21 at 0738 by VIOLET Pt. is near to the nurse's station and within LOS, he continues to be monitored closely.
[2021-12-23] MEDS: LORazepam 0.5 MG tablet PO SCH ×3 (08:16→20:03)
[2021-12-23] MEDS: naltrexone 50mg tablet PO SCH (08:16)
[2021-12-23] MEDS: benztropine 1mg tablet PO SCH ×2 (08:16→20:03)
[2021-12-23] MEDS: haloperidol 5mg tablet PO SCH ×3 (08:16→20:03)
--- NOTE | 2021-12-23 08:28 | NUR ---
Pt. is sitting up in bed at this time eating breakfast, he is compliant with medications taken in applesauce.
--- NOTE | 2021-12-23 10:30 | NUR ---
Pt. continues to sleep at this time, laying on his left side. 1:1 was completed at bedside, and pt. currently denies all MH s/s. He presents with thoght blocking and delayed speech. Pt. has very poor insight into his mental illness, he states, "I want my freedom. I want to go home." When this production underwriter asked pt. where home is, he was unable to say.
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
--- NOTE | 2021-12-23 12:30 | NUR ---
Pt. is sitting up eating lunch at this time.
--- NOTE | 2021-12-23 13:13 | NUR ---
Pt. c/o of a headache, obtained an order from JEM Guzman for Tylenol
--- NOTE | 2021-12-23 13:31 | NUR ---
breaking primary nurse at this time,pt up to use restroom it security consulting director watching the patient .
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
--- NOTE | 2021-12-23 14:01 | NUR ---
lab and doctors reports sent to the [facility] office.
--- NOTE | 2021-12-23 14:30 | NUR ---
Pt. is sleeping at this time, laying on his right side, rr even and unlabored.
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
[2021-12-23] MEDS: sertraline 50mg tablet PO SCH (17:17)
--- NOTE | 2021-12-23 17:54 | NUR ---
Pt. is laying in bed at this time, he sits up frequently to ask when dinner will arrive. He requires frequent reminding and positive encouragement.
--- NOTE | 2021-12-23 19:00 | NUR ---
Patient sitting at bedside. He finished his dinner. Patient is up on occasion. He requiers frequent redirection.
--- NOTE | 2021-12-23 19:58 | NUR ---
Patient out of bed, he attempted to open plastic door to access the unit gas valve. The patient was redirected to bed, he complied.
[2021-12-23] MEDS: quetiapine fumarate ER 300mg tablet PO SCH (20:03)
--- NOTE | 2021-12-23 20:10 | NUR ---
Patient was compliant with night time medications.
--- NOTE | 2021-12-23 20:34 | NUR ---
Ken shared with this patient. He exhibited good behavior, said thanks, he returned to bed and then sleep.
--- NOTE | 2021-12-23 23:06 | NUR ---
Patient is sleeping quietly in a low fowlers position.
--- NOTE | 2021-12-24 00:49 | NUR ---
Patient is sleeping quietly in a supine positions.
--- NOTE | 2021-12-24 04:02 | NUR ---
Patient is sleeping quietly in a supine position.
--- NOTE | 2021-12-24 05:32 | NUR ---
Patient was up to void, he then returned to bed. He is sleeping in a supine position.
--- NOTE | 2021-12-24 08:30 | NUR ---
Pt. awoke and ate breakfast. Pt. requesting more food. Pt. went back to sleep.
[2021-12-24] MEDS: naltrexone 50mg tablet PO SCH (08:37)
[2021-12-24] MEDS: LORazepam 0.5 MG tablet PO SCH ×3 (08:37→20:00)
[2021-12-24] MEDS: haloperidol 5mg tablet PO SCH ×3 (08:37→20:00)
[2021-12-24] MEDS: benztropine 1mg tablet PO SCH ×2 (08:37→20:00)
--- NOTE | 2021-12-24 10:30 | NUR ---
Pt. used bathroom and resting in bed.
--- NOTE | 2021-12-24 12:30 | NUR ---
Pt. awake and eating lunch in bed.
--- NOTE | 2021-12-24 14:30 | NUR ---
RN awake and resting in supine position in bed. Pt. in no apparent distress.
--- NOTE | 2021-12-24 16:30 | NUR ---
Pt. running towards fire alarm and had to be redirected back to bed. RN received order for Ativan 2mg po.
--- NOTE | 2021-12-24 17:43 | NUR ---
RN spoke with on-call deputy conservator Laith. Laith says to call him this weekend for any needs. His phone number is [phone].
--- NOTE | 2021-12-24 19:32 | NUR ---
The patient is sleeping on his bed.
--- NOTE | 2021-12-24 19:46 | NUR ---
The patient awake and took his dinner tray that was by his bedside and threw it on the floor stating he wanted to leave. He was directed to clean up the food and tray from the floor which he did. He is currently resting his bed.
[2021-12-24] MEDS: quetiapine fumarate ER 300mg tablet PO SCH (20:00)
[2021-12-24] MEDS: sertraline 50mg tablet PO SCH (20:00)
--- NOTE | 2021-12-24 20:33 | NUR ---
THe patient appears to be sleeping
--- NOTE | 2021-12-24 21:38 | NUR ---
The patient appears to be sleeping
--- NOTE | 2021-12-24 23:47 | NUR ---
The patient appears to be sleeping
--- NOTE | 2021-12-25 01:01 | NUR ---
The patient appears to be sleeping
--- NOTE | 2021-12-25 02:29 | NUR ---
The patient appears to be sleeping
--- NOTE | 2021-12-25 03:28 | NUR ---
The patient appears to be sleeping
--- NOTE | 2021-12-25 05:09 | NUR ---
The patient appears to be sleeping
--- NOTE | 2021-12-25 06:35 | NUR ---
Assumed care of patient. Pt appears to be sleeipng, no restless movement. [place] pulled up over his head, visible rise and fall of chest noted.
[2021-12-25] MEDS: haloperidol 5mg tablet PO SCH ×3 (08:53→19:02)
[2021-12-25] MEDS: naltrexone 50mg tablet PO SCH (08:53)
[2021-12-25] MEDS: LORazepam 0.5 MG tablet PO SCH ×3 (08:53→19:03)
[2021-12-25] MEDS: benztropine 1mg tablet PO SCH ×2 (08:53→19:02)
--- NOTE | 2021-12-25 09:00 | NUR ---
Pt up to bathroom. Pt ate approximately 75% of his breakfast. Pt was compliant with care and medication. Medication administered crushed in applesauce. Pt denies all psychotic symptoms. Pt slept until 0840.
--- NOTE | 2021-12-25 11:02 | NUR ---
Pt sitting in bed watching T.V. Pt has been up to the bathroom twice. No current behaviors to report.
--- NOTE | 2021-12-25 11:45 | NUR ---
Pt lying in bed talking about wanting to leave and go to the [facility]. Pt has made no attempt to run from the unit. Pt tossed his campos crackers at the [facility], crackers were taken away. Pt was educated on the proper way to treat people.
--- NOTE | 2021-12-25 12:25 | NUR ---
Pt was compliant with scheduled medication. Administered crushed in applesauce
--- NOTE | 2021-12-25 13:30 | NUR ---
Pt resting comfortably, respirations even and unlabored.
--- NOTE | 2021-12-25 15:30 | NUR ---
Pt watching T.V eating a snack. Sitter at bedside. No behaviors to report.
--- NOTE | 2021-12-25 17:03 | NUR ---
Pt watching T.V. Continues to be cooperative and not disruptive. Sitter at bedside.
[2021-12-25 17:38] VITALS: BP 105/75
[2021-12-25] MEDS: sertraline 50mg tablet PO SCH (17:55)
--- NOTE | 2021-12-25 18:30 | NUR ---
The patient refused his dinner and he stated that he did not like food. He was wanting to move to bed 25 but he was kept close to the bathroom to prevent impulsive elopement from the ER. Discussed with patient target behaviors that would be advantages to work towards.
[2021-12-25] MEDS: quetiapine fumarate ER 300mg tablet PO SCH (19:03)
--- NOTE | 2021-12-25 19:26 | NUR ---
The patient abruptly stood up and and pulled the cover off the medical gas switches and had to forcibly moved away and placed on his bed. THe patient has poor impulse control and does not appreciate how his actions cause unwanted consequences. He states, "I want to be free" but he is unable to formulate any kind of plan for food, halfway or clothing if he left the hospital. When asked why he was here he stated, "Because I stuck my azalea into other people's place" When asked how he would pay for food if he was discharged he stated, "That's a tricky question" but could not elaborate. The correctional program officer public guardian's office called to get an update on the patient and that was provided as well as behaviors that he has been exhibiting. His HS medications were given crushed and in applesauce.
--- NOTE | 2021-12-25 20:47 | NUR ---
The patient appears to be sleeping
--- NOTE | 2021-12-25 21:34 | NUR ---
The patient is awake and resting on his bed
--- NOTE | 2021-12-25 23:30 | NUR ---
The patient appears to be sleeping
--- NOTE | 2021-12-26 01:37 | NUR ---
The patient appears to be sleeping
--- NOTE | 2021-12-26 02:17 | NUR ---
The patient was awake and standing by his bed but somewhat disorganized. He is now back in his bed.
--- NOTE | 2021-12-26 02:29 | NUR ---
Patient requested a sandwhich and ate at approximately 30% of it then threw the remainder on the floor. He did pick it up and throw it away when staff asked him to.
--- NOTE | 2021-12-26 03:29 | NUR ---
The patient appears to be sleeping
--- NOTE | 2021-12-26 04:23 | NUR ---
THe patient appears to be sleeping
--- NOTE | 2021-12-26 05:11 | NUR ---
The patient appears to be sleeping
--- NOTE | 2021-12-26 06:27 | NUR ---
Received patient sleeping, respirations even and unlaboared.
--- NOTE | 2021-12-26 08:30 | NUR ---
Pt sleeping comfortably, respirations even and unlabored.
[2021-12-26] MEDS: benztropine 1mg tablet PO SCH ×2 (08:50→20:01)
[2021-12-26] MEDS: LORazepam 0.5 MG tablet PO SCH ×3 (08:50→20:02)
[2021-12-26] MEDS: naltrexone 50mg tablet PO SCH (08:50)
[2021-12-26] MEDS: haloperidol 5mg tablet PO SCH ×3 (08:50→20:01)
--- NOTE | 2021-12-26 08:55 | NUR ---
Elyssa from Public Guardian was at bedside. Addendum: 12/26/21 at 1039 by LUZ MARIA Adminstered medication crushed and in applesauce. Pt was compliant.
--- NOTE | 2021-12-26 10:32 | NUR ---
Pt lying on right side, visible body movements noted. No distress. Pt has covers pulled over his head.
--- NOTE | 2021-12-26 11:45 | NUR ---
Pt up to the bathroom, no behaviors.
--- NOTE | 2021-12-26 12:15 | NUR ---
Pt was sitting in bed eating lunch, then out of the blue he threw his bread pudding bowel. Pt attempted to get out of bed and required several verbal attempts to get back into bed.
--- NOTE | 2021-12-26 13:10 | NUR ---
Pt jumped out of bed and went for the cover of the oxygen gas levers. Tube Room Cashier had to forcibly push pt away from box as verbal requests were unsuccessful.
--- NOTE | 2021-12-26 13:19 | NUR ---
Pt was compliant with 1300 medications. Pt declined to eat his lunch. Pt is sitting in bed watching T.V
--- NOTE | 2021-12-26 14:29 | NUR ---
Pt jumped out of bed and pulled the cover off the oxygen valves. Pt became defiant and required several verbal requests to go back to his bed. Security was called for stand by. Received order for IM Haldol 10mg. Pt received medication without issue.
--- NOTE | 2021-12-26 15:30 | NUR ---
Pt lying in bed with eyes open, no distress. No behaviors to report.
--- NOTE | 2021-12-26 16:30 | NUR ---
Pt lying in bed restfully, respirations even and unlabored.
[2021-12-26] MEDS: quetiapine fumarate ER 300mg tablet PO SCH (20:01)
[2021-12-26] MEDS: sertraline 50mg tablet PO SCH (20:02)
--- NOTE | 2021-12-26 20:16 | NUR ---
The patient trew a vase with a flower in it on the floor as well as food items. He cleaned the them as when asked.
--- NOTE | 2021-12-26 20:53 | NUR ---
The patient has been better able to communicate effectively this evening. He continues with impulsive behaviors ie throwing things to the floor for no apparent reason.
--- NOTE | 2021-12-26 23:25 | NUR ---
The patient appears to be sleeping
--- NOTE | 2021-12-27 00:45 | NUR ---
The patient appears to be sleeping
--- NOTE | 2021-12-27 02:21 | NUR ---
The patient appears to be sleeping
== END | disposition home or self-care (01) ==
LOC: ER 10:12
DX: F25.9 Schizoaffective disorder, unspecified (principal); G89.29 Other chronic pain; F41.9 Anxiety disorder, unspecified; Z59.00 Homelessness unspecified; Z56.0 Unemployment, unspecified; Z20.822 Contact with and (suspected) exposure to COVID-19
CPT/HCPCS: 36415; 80053; 80305; 81001; 84443; 85025; 87635; 99285; C9803; J1200; J2060; J3490